=== PATIENT | male | born 1945 | race Caucasian/White ===

== ENCOUNTER 2016-08-06 17:37 | Inpatient (IN) | payer MEDICARE, OTHER ==
--- NOTE | 2016-08-06 18:38 | ED ---
Extremity Problem HPI - General Chief complaint: Extremity Problem,Nontraumatic Stated complaint: Legs swollen/pain Time Seen by Provider: 08/06/16 18:28 Source: patient, RN notes reviewed Mode of arrival: wheelchair Limitations: no limitations - History of Present Illness Initial comments: 31-year-old male presents emergency Department chief complaint of bilateral leg swelling, 30 pound weight gain. Patient states this has been going on for last 2 weeks. Patient states she does have CHF and which she's had multiple exacerbations. Patient states that he saw his family doctor on Friday who told him that he had to go to the emergency department though he refused and signed off. Patient states that he does not have any retaken of his . Patient states that he does have some he now and he is here for evaluation. Patient states that he typically lives in a recliner. Patient denies any increased shortness of breath. Patient denies any chest pain, fever, chills. Patient states he takes Lasix 80 mg twice daily. Patient states that his pressure has been lower than usual also. - Related Data Home Medications Medication Instructions Recorded Confirmed HYDROcodone/APAP 7.5-325MG [[place] 1 tab PO Q6HR PRN 11/07/15 08/06/16 7.5-325] Furosemide [Lasix] 80 mg PO BID 04/05/16 08/06/16 Aspirin [Adult Low Dose Aspirin EC] 81 mg PO DAILY 04/10/16 08/06/16 Metoprolol Tartrate [Lopressor] 12.5 mg PO DAILY 04/10/16 08/06/16 Atorvastatin [Lipitor] 80 mg PO DAILY 08/06/16 08/06/16 Omeprazole [PriLOSEC] 20 mg PO DAILY 08/06/16 08/06/16 metFORMIN HCL [Glucophage] 500 mg PO BID 08/06/16 08/06/16 Allergies Allergy/AdvReac Type Severity Reaction Status Date / Time Penicillins Allergy Rash/Hives Verified 08/06/16 18:51 Review of Systems ROS Statement: Those systems with pertinent positive or pertinent negative responses have been documented in the HPI. ROS Other: All systems not noted in ROS Statement are negative. Past Medical History Past Medical History: Coronary Artery Disease (CAD), Diabetes Mellitus, Hyperlipidemia, Hypertension, Myocardial Infarction ([place]), Osteoarthritis (OA), Pneumonia, Prostate Disorder, Vascular Disorder Additional Past Medical History / Comment(s): . Last Myocardial Infarction Date:: 2010 History of Any Multi-Drug Resistant Organisms: MRSA, VRE Date of last positivie culture/infection: 12/08/15 MDRO Source:: RIGHT FOOT MRSA AND VRE Past Surgical History: Appendectomy, Back Surgery, Cholecystectomy, Heart Catheterization With Stent, Hernia Repair, Pacemaker, Tonsillectomy Additional Past Surgical History / Comment(s): cervical fusion, left carpal tunnel release, cataract left eye, HEART STENT X2, 10-16-15 PTBA /RT LEG STENT. Past Anesthesia/Blood Transfusion Reactions: Postoperative Nausea & Vomiting ( PONV) Additional Past Anesthesia/Blood Transfusion Reaction / Comment(s): . 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 Smoking Status: Current every day smoker Past Alcohol Use History: Rare Additional Past Alcohol Use History / Comment(s): Patient has been a smoker of one and half packs per day since 1996. IS TRYING TO QUIT SMOKING, DOWN TO 1/2 PPD. Past Drug Use History: None Reported - Past Family History Mother Additional Family Medical History / Comment(s): PT STATED MOM WAS HEALTH BUT IN OLDER AGE GOT PNE- FROM COMPLICATIONS OF PNE. Father Family Medical History: Osteoarthritis (OA) Additional Family Medical History / Comment(s): ULCERS, HEART PROBLEMS HAD BYPASS,BACK SURGURY General Exam Limitations: no limitations General appearance: alert, in no apparent distress Head exam: Present: atraumatic, normocephalic, normal inspection Neck exam: Present: normal inspection. Absent: tenderness, meningismus, lymphadenopathy Respiratory exam: Present: normal lung sounds bilaterally. Absent: respiratory distress, wheezes, rales, rhonchi, stridor Cardiovascular Exam: Present: regular rate, normal rhythm, normal heart sounds. Absent: systolic murmur, diastolic murmur, rubs, gallop, clicks GI/Abdominal exam: Present: soft, normal bowel sounds. Absent: distended, tenderness, guarding, rebound, rigid Extremities exam: Present: pedal edema (2+ pitting edema pulses +2 bilaterally) Neurological exam: Present: alert, oriented X3, CN II-XII intact Skin exam: Present: warm, dry, intact, normal color. Absent: rash Course Vital Signs 08/06/16 08/06/16 18:02 20:30 Temperature 99.4 F Pulse Rate 73 Respiratory 18 16 Rate Blood Pressure 96/46 O2 Sat by Pulse 97 Oximetry Medical Decision Making - Lab Data Result diagrams: 08/06/16 19:35 08/06/16 19:35 Lab Results 08/06/16 08/06/16 08/06/16 Range/Units 19:35 19:35 19:35 WBC 6.2 (3.8-10.6) k/uL RBC 4.42 (4.30-5.90) m/uL Hgb 13.3 (13.0-17.5) gm/dL Hct 41.7 (39.0-53.0) % MCV 94.3 (80.0-100.0) fL MCH 30.1 (25.0-35.0) pg MCHC 31.9 (31.0-37.0) g/dL RDW 14.6 (11.5-15.5) % Plt Count 151 (150-450) k/uL Neutrophils % 73 % Lymphocytes % 16 % Monocytes % 6 % Eosinophils % 3 % Basophils % 1 % Neutrophils # 4.5 (1.3-7.7) k/uL Lymphocytes # 1.0 (1.0-4.8) k/uL Monocytes # 0.4 (0-1.0) k/uL Eosinophils # 0.2 (0-0.7) k/uL Basophils # 0.0 (0-0.2) k/uL Sodium 136 L (137-145) mmol/L Potassium 5.1 (3.5-5.1) mmol/L Chloride 103 (98-107) mmol/L Carbon Dioxide 22 (22-30) mmol/L Anion Gap 11 mmol/L BUN 20 (9-20) mg/dL Creatinine 1.01 (0.66-1.25) mg/dL Est GFR (MDRD) Af Amer >60 (>60 ml/min/1.73 sqM) Est GFR (MDRD) Non-Af >60 (>60 ml/min/1.73 sqM) Glucose 480 H* (74-99) mg/dL Calcium 9.1 (8.4-10.2) mg/dL Magnesium 1.8 (1.6-2.3) mg/dL Total Bilirubin 1.1 (0.2-1.3) mg/dL AST 79 H (17-59) U/L ALT 82 H (21-72) U/L Alkaline Phosphatase 125 (38-126) U/L Troponin I (0.000-0.034) ng/mL NT-Pro-B Natriuret Pep 979 pg/mL Total Protein 6.5 (6.3-8.2) g/dL Albumin 3.7 (3.5-5.0) g/dL Acetone, Qual (Negative) 08/06/16 08/06/16 Range/Units 19:35 19:35 WBC (3.8-10.6) k/uL RBC (4.30-5.90) m/uL Hgb (13.0-17.5) gm/dL Hct (39.0-53.0) % MCV (80.0-100.0) fL MCH (25.0-35.0) pg MCHC (31.0-37.0) g/dL RDW (11.5-15.5) % Plt Count (150-450) k/uL Neutrophils % % Lymphocytes % % Monocytes % % Eosinophils % % Basophils % % Neutrophils # (1.3-7.7) k/uL Lymphocytes # (1.0-4.8) k/uL Monocytes # (0-1.0) k/uL Eosinophils # (0-0.7) k/uL Basophils # (0-0.2) k/uL Sodium (137-145) mmol/L Potassium (3.5-5.1) mmol/L Chloride (98-107) mmol/L Carbon Dioxide (22-30) mmol/L Anion Gap mmol/L BUN (9-20) mg/dL Creatinine (0.66-1.25) mg/dL Est GFR (MDRD) Af Amer (>60 ml/min/1.73 sqM) Est GFR (MDRD) Non-Af (>60 ml/min/1.73 sqM) Glucose (74-99) mg/dL Calcium (8.4-10.2) mg/dL Magnesium (1.6-2.3) mg/dL Total Bilirubin (0.2-1.3) mg/dL AST (17-59) U/L ALT (21-72) U/L Alkaline Phosphatase (38-126) U/L Troponin I <0.012 (0.000-0.034) ng/mL NT-Pro-B Natriuret Pep pg/mL Total Protein (6.3-8.2) g/dL Albumin (3.5-5.0) g/dL Acetone, Qual Negative (Negative) Disposition Clinical Impression: CHF (congestive heart failure), Weight gain, abnormal, Hyperglycemia Disposition: ADMITTED IP TO THIS HOSP Condition: Stable
--- NOTE | 2016-08-06 19:50 | XR ---
EXAMINATION TYPE: XR chest 2V DATE OF EXAM: 08/06/2016 7:46 PM COMPARISON: 04/10/2016 HISTORY: Short of breath TECHNIQUE: Frontal and lateral views of the chest are obtained. FINDINGS: There is coarsening of interstitial pulmonary markings. There is no pleural effusion. Hear t size is normal. There are no hilar masses. There is a left axillary pacemaker with the lead tip in the right ventricle. IMPRESSION: Coarse lung markings probably due to mild pulmonary congestion. There is no overt heart failure. No change compared to old exam.
[2016-08-06 20:00] LABS: Basophils % (A) 1 %; Eosinophils # (A) 0.2 k/uL (0-0.7); Eosinophils % (A) 3 %; HCT 41.7 % (39.0-53.0); HGB 13.3 gm/dL (13.0-17.5); Luc # (Auto) 0.13; Luc % (Auto) 2; Lymphocytes % (A) 16 %; MCH 30.1 pg (25.0-35.0); MCHC 31.9 g/dL (31.0-37.0); MCV 94.3 fL (80.0-100.0); Monocytes # (A) 0.4 k/uL (0-1.0); Monocytes % (A) 6 %; Neutrophils # (A) 4.5 k/uL (1.3-7.7); Neutrophils % (A) 73 %; RBC 4.42 m/uL (4.30-5.90); RDW 14.6 % (11.5-15.5); WBC 6.2 k/uL (3.8-10.6); WBC (Perox) 6.28
[2016-08-06 20:08] LABS: ALT 82 U/L (21-72); AST 79 U/L (17-59); Alkaline Phosphatase 125 U/L (38-126); Anion Gap 11 mmol/L; Blood Urea Nitrogen 20 mg/dL (9-20); Calcium 9.1 mg/dL (8.4-10.2); Carbon Dioxide 22 mmol/L (22-30); Chloride 103 mmol/L (98-107); Magnesium 1.8 mg/dL (1.6-2.3); Non-African American GFR(MDRD) >60 (>60 ml/min/1.73 sqM); Potassium 5.1 mmol/L (3.5-5.1); Sodium 136 mmol/L (137-145); Total Bilirubin 1.1 mg/dL (0.2-1.3); Total Protein 6.5 g/dL (6.3-8.2)
[2016-08-06 20:14] LABS: Glucose 480 mg/dL (74-99)
[2016-08-06] MEDS ORDERED: INSULIN REGULAR 100 UNIT/ML VIAL IV ONE (20:15)
[2016-08-06] MEDS ORDERED: FUROSEMIDE 10 MG/ML 4 ML VIAL IV STA (21:24)
[2016-08-06] MEDS ORDERED: NALOXONE 0.4 MG/ML 1 ML VIAL IV PRN (21:33)
[2016-08-06 21:45] LABS: Glucose,Whole Blood 362 mg/dL (75-99)
[2016-08-06 23:06] LABS: Hemoglobin A1C 12.1 % (4.2-6.1)
[2016-08-07 00:47] LABS: Glucose,Whole Blood 307 mg/dL (75-99)
[2016-08-07] MEDS: HYDROcodone/APAP 7.5-325MG 1 EACH TAB PO PRN ×2 (02:24→23:37)
[2016-08-07 04:12] LABS: Appearance,Urine Clear (Clear); Bilirubin,Urine Negative (Negative); Glucose,Urine (UA) 4+ (Negative); Ketones,Urine Negative (Negative); Leukocyte Esterase,Urine Negative (Negative); Nitrite,Urine Negative (Negative); Protein,Urine Negative (Negative); Specific Gravity,Urine 1.005 (1.001-1.035); UA Billing (MACRO vs. MICRO) CHEM; Urobilinogen,Urine <2.0 mg/dL (<2.0)
[2016-08-07 07:46] LABS: Glucose,Whole Blood 291 mg/dL (75-99)
[2016-08-07] MEDS: ONDANSETRON 4 MG/2 ML VIAL IVP PRN (08:04)
[2016-08-07] MEDS: INSULIN LISPRO (humaLOG) 300 UNIT/3 ML VIAL SQ SCH ×4 (08:06→21:23)
[2016-08-07] MEDS: PANTOPRAZOLE 40 MG TABLET PO SCH (08:07)
[2016-08-07] MEDS: ASPIRIN 81 MG CHEW PO SCH (08:07)
[2016-08-07] MEDS ORDERED: FUROSEMIDE 10 MG/ML 4 ML VIAL IV SCH ×2 (09:00→18:00)
[2016-08-07] MEDS ORDERED: METOPROLOL TARTRATE 12.5 MG TAB PO SCH (09:00)
[2016-08-07] MEDS: ATORVASTATIN 80 MG TAB PO SCH (10:56)
[2016-08-07 12:01] VITALS: BMI 34.6
[2016-08-07 12:49] LABS: Glucose,Whole Blood 340 mg/dL (75-99)
[2016-08-07] MEDS: SPIRONOLACTONE 25 MG TAB PO SCH (15:30)
[2016-08-07] MEDS: FUROSEMIDE 10 MG/ML 4 ML VIAL IV SCH ×2 (15:30→23:18)
[2016-08-07] MEDS: NICOTINE 14MG/24HR PATCH TRANSDERM SCH ×2 (15:30→15:31)
[2016-08-07 16:53] LABS: Glucose,Whole Blood 395 mg/dL (75-99)
[2016-08-07] MEDS: INSULIN NPH/REG INSULIN 70/30 300 UNIT/3 ML VIAL SQ SCH (17:35)
--- NOTE | 2016-08-07 18:06 | HP ---
DATE OF ADMISSION: 08/06/2016 PRESENTING COMPLAINT: Leg swelling. HISTORY OF PRESENTING COMPLAINT: This is a 71-year-old patient of Dr. Brown whose chronic stable medical conditions include coronary artery disease with stent, diabetes, hyperlipidemia, hypertension, peripheral artery disease. He also has a history of congestive heart failure with an EF from October that is just 20%. Patient presented with abdominal distention, increasing swelling of the legs, found to be in congestive heart failure. Patient also has some orthopnea. REVIEW OF SYSTEMS: CONSTITUTIONAL: Tired. HEENT: None. RESPIRATORY: Short of breath. CARDIOVASCULAR: As above. GASTROINTESTINAL: None. GENITOURINARY: None. MUSCULOSKELETAL: Aches and pains in the joints. DERMATOLOGICAL: None. HEMATOLOGIC: None. LYMPHATICS: None. PSYCHIATRY: None. NEUROLOGICAL: None. PAST MEDICAL HISTORY: 1. CHF; EF 20%. 2. Coronary artery disease with stent. 3. Diabetes. 4. Hypertension. 5. Hyperlipidemia. 6. Peripheral artery disease. 7. Right foot MRSA and VRE. PAST SURGICAL HISTORY: 1. Appendectomy. 2. Back surgery. 3. Cholecystectomy. 4. Cardiac catheterization with stent. 5. Hernia repair. 6. Tonsillectomy. 7. Cervical spine fusion. 8. Left carpal tunnel release. 9. PTBA to right leg with stent. 10. Hernia repair. 11. Cholecystectomy. 12. AICD. SOCIAL HISTORY: . 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 He smoked a pack and a half a day; now down to half a pack a day. Smoked for over 20 years. Alcohol rarely. FAMILY HISTORY: Heart problems. HOME MEDICATIONS: 1. Glucophage 500 mg p.o. b.i.d. 2. Prilosec 20 mg p.o. daily. 3. Lopressor 12.5 p.o. daily. 4. [place] 7.5 one tablet p.o. q.6 p.r.n. 5. Lasix 80 mg p.o. b.i.d. 6. Lipitor 80 mg p.o. daily. 7. Aspirin 81 mg p.o. daily. ALLERGIES: PENICILLIN. On examination, temperature 98.5, pulse 77, respiration 16, blood pressure 110/59, pulse ox 97% on room air. GENERAL APPEARANCE: Overweight; BMI of 34.6. Sitting up, tired-appearing. EYES: Pupils equal. Conjunctivae normal. HEENT: External appearance of nose and normal. Oral cavity normal. NECK: JVD raised. Mass not palpable. RESPIRATORY: Effort increased. LUNGS: Diminished breath sounds. CARDIOVASCULAR: First and second sounds normal. No edema present. ABDOMEN: Distended, soft. Liver and spleen not palpable. LYMPHATIC: No lymph node palpable in neck or axillae. PSYCHIATRY: Alert and oriented x3. Mood and affect normal. NEUROLOGICAL: Pupils equal. Cranial nerves grossly intact. Power and sensation grossly intact. MUSCULOSKELETAL: Evidence of osteoarthritis of multiple joints. INVESTIGATIONS: White count 6.2, hemoglobin 13.3, platelets 151. Potassium 5.1. BUN and creatinine are normal. Glucose is 480. Serum acetone negative. ProBNP 979. Chest x-ray shows venous prominence. EKG shows right bundle brunch block. ASSESSMENT: 1. Acute on chronic congestive heart failure exacerbation from systolic dysfunction; ejection fraction 20%. Patient has known coronary artery disease. 2. Coronary artery disease with prior history of stent. 3. Diabetes mellitus, type 2, uncontrolled, chronically on oral hypoglycemic. 4. Hyperlipidemia. 5. Essential hypertension. 6. Primary osteoarthritis in bilateral joints bilaterally. 7. Obesity with body mass index of 34.7. 8. Peripheral artery disease. 9. Chronic nicotine dependence. Patient is a cigarette smoker. PLAN: Patient was started on IV Lasix. Strict I&O. Will also add Aldactone. Will increase Lopressor to 12.5 twice a day. Patient advised against smoking, given a nicotine patch. Will also use Hector wraps. Strict I&O will be done, electrolytes followed closely. Care was discussed with the patient.
[2016-08-07 20:41] LABS: Glucose,Whole Blood 280 mg/dL (75-99)
[2016-08-07] MEDS: METOPROLOL TARTRATE 12.5 MG TAB PO SCH (21:23)
[2016-08-08] MEDS: ONDANSETRON 4 MG/2 ML VIAL IVP PRN (03:10)
[2016-08-08 07:20] LABS: Glucose,Whole Blood 238 mg/dL (75-99)
[2016-08-08 09:33] LABS: Anion Gap 11 mmol/L; Blood Urea Nitrogen 22 mg/dL (9-20); Calcium 9.4 mg/dL (8.4-10.2); Carbon Dioxide 25 mmol/L (22-30); Chloride 102 mmol/L (98-107); Glucose 246 mg/dL (74-99); Non-African American GFR(MDRD) >60 (>60 ml/min/1.73 sqM); Potassium 4.9 mmol/L (3.5-5.1); Sodium 138 mmol/L (137-145)
[2016-08-08] MEDS: INSULIN NPH/REG INSULIN 70/30 300 UNIT/3 ML VIAL SQ SCH ×2 (09:43→17:27)
[2016-08-08] MEDS: INSULIN LISPRO (humaLOG) 300 UNIT/3 ML VIAL SQ SCH ×4 (09:44→21:13)
[2016-08-08] MEDS: METOPROLOL TARTRATE 12.5 MG TAB PO SCH ×2 (09:44→21:14)
[2016-08-08] MEDS: ASPIRIN 81 MG CHEW PO SCH (09:44)
[2016-08-08] MEDS: SPIRONOLACTONE 25 MG TAB PO SCH (09:44)
[2016-08-08] MEDS: FUROSEMIDE 10 MG/ML 4 ML VIAL IV SCH ×3 (09:44→23:55)
[2016-08-08] MEDS: PANTOPRAZOLE 40 MG TABLET PO SCH (09:44)
[2016-08-08] MEDS: NICOTINE 14MG/24HR PATCH TRANSDERM SCH (09:45)
[2016-08-08] MEDS: ATORVASTATIN 80 MG TAB PO SCH (09:45)
[2016-08-08] MEDS ORDERED: INSULIN NPH/REG INSULIN 70/30 300 UNIT/3 ML VIAL SQ SCH (12:30)
[2016-08-08 12:48] LABS: Glucose,Whole Blood 305 mg/dL (75-99)
[2016-08-08 17:05] LABS: Glucose,Whole Blood 188 mg/dL (75-99)
--- NOTE | 2016-08-08 20:59 | PN ---
DATE OF SERVICE: 08/08/2016 PRESENTING COMPLAINT: CHF. INTERVAL HISTORY: This patient with CHF exacerbation on IV Lasix, making good urine. Edema still present. Short of breath a shade better, tolerating his diet. Review of systems done for constitutional, cardiovascular, GI, pulmonary; relevant findings as above. Current medications reviewed, IV Lasix. On examination, temperature 97, pulse 72, respirations 18, blood pressure 117/69, pulse ox 96% on room air. GENERAL APPEARANCE: Sitting up, not in distress. EYES: Pupils equal. Conjunctivae normal. NECK: JVD raised. RESPIRATORY: Effort normal. LUNGS: Diminished breath sounds. CARDIOVASCULAR: First and second sounds normal, present. Edema present. ABDOMEN: Distended, soft. Liver and spleen not palpable. PSYCHIATRY: Alert and oriented x3. Mood and affect were normal. INVESTIGATIONS: BUN 22, creatinine 0.91. Accu-Cheks are noted: 212, 38, 246, 305. ASSESSMENT: 1. Acute on chronic congestive heart failure exacerbation from systolic dysfunction; ejection fraction 20%, from underlying coronary artery disease, slow to respond. 2. Coronary artery disease with prior history of stent. 3. Diabetes mellitus type 2, uncontrolled, chronically on oral hypoglycemic. 4. Hyperlipidemia. 5. Essential hypertension. 6. Primary osteoarthritis of multiple joints, bilateral. 7. Obesity, body mass index of 34.7. 8. Peripheral artery disease. 9. Chronic nicotine dependence. Patient is a cigarette smoker. PLAN: The patient's Novolin 70/30 will be increased to 22 units in the morning and evening and 15 units with supper. Also, the patient's dose of IV Lasix will be increased. The patient is very insistent on going home because he takes care of in his neighbor has been taking care and he has to get out tomorrow. Hector wrap, fluid restriction will be done. Follow.
[2016-08-08 21:31] LABS: Glucose,Whole Blood 114 mg/dL (75-99)
[2016-08-09 00:13] VITALS: RESP 16
[2016-08-09] MEDS: FUROSEMIDE 10 MG/ML 4 ML VIAL IV SCH (07:34)
[2016-08-09] MEDS: PANTOPRAZOLE 40 MG TABLET PO SCH (07:34)
[2016-08-09] MEDS: METOPROLOL TARTRATE 12.5 MG TAB PO SCH (07:34)
[2016-08-09] MEDS: SPIRONOLACTONE 25 MG TAB PO SCH (07:34)
[2016-08-09] MEDS: ASPIRIN 81 MG CHEW PO SCH (07:34)
[2016-08-09] MEDS: ATORVASTATIN 80 MG TAB PO SCH (07:34)
[2016-08-09] MEDS: INSULIN LISPRO (humaLOG) 300 UNIT/3 ML VIAL SQ SCH (07:35)
[2016-08-09] MEDS: INSULIN NPH/REG INSULIN 70/30 300 UNIT/3 ML VIAL SQ SCH (07:35)
[2016-08-09] MEDS: NICOTINE 14MG/24HR PATCH TRANSDERM SCH (07:38)
[2016-08-09] MEDS ORDERED: BISACODYL 5 MG TABLET.DR PO STA (07:46)
[2016-08-09 07:55] LABS: Glucose,Whole Blood 170 mg/dL (75-99)
[2016-08-09 08:06] VITALS: BP 114/59; PULSE 69; TEMP 97.9
[2016-08-09 09:45] LABS: Anion Gap 11 mmol/L; Blood Urea Nitrogen 24 mg/dL (9-20); Calcium 8.9 mg/dL (8.4-10.2); Carbon Dioxide 26 mmol/L (22-30); Chloride 102 mmol/L (98-107); Glucose 175 mg/dL (74-99); Non-African American GFR(MDRD) >60 (>60 ml/min/1.73 sqM); Potassium 4.3 mmol/L (3.5-5.1); Sodium 139 mmol/L (137-145)
[2016-08-09] MEDS ORDERED: INSULIN NPH/REG INSULIN 70/30 300 UNIT/3 ML VIAL SQ SCH (12:30)
--- NOTE | 2016-08-10 13:35 | DS ---
DATE OF ADMISSION: 08/06/2016 DATE OF DISCHARGE: 08/09/2016 FINAL DIAGNOSES: 1. Acute on chronic congestive heart failure exacerbation from systolic dysfunction; ejection fraction 20%, from underlying coronary artery disease, slow to respond. 2. Coronary artery disease with prior history of stent. 3. Diabetes mellitus type 2, uncontrolled, chronically on the oral hypoglycemic. 4. Hyperlipidemia. 5. Essential hypertension. 6. Primary osteoarthritis of multiple joints, bilateral. 7. Obesity, body mass index 34.7. 8. Peripheral arterial disease. 9. Chronic nicotine dependence. Patient is a cigarette smoker. HOSPITAL COURSE: This is a patient who looks like somewhat noncompliant, not taking his insulin, presents with CHF exacerbation, really did not want to stay in the hospital as the neighbors were taking care of his . I counseled the patient, gave some diuretics. The patient also was counseled extensively about discontinuing his smoking. I did change the patient to Novolin 70/30. ON EXAMINATION: LUNGS: Decreased breath sounds. CARDIOVASCULAR: First and second seconds normal. DISCHARGE MEDICATIONS: 1. [place] 7.5 one tablet q.6 p.r.n. 2. Lasix 80 mg p.o. b.i.d. 3. Aspirin 81 mg p.o. daily. 4. Lipitor 80 mg p.o. daily. 5. Prilosec 20 mg p.o. daily. 6. Glucophage 1000 mg p.o. b.i.d. 7. NovoLog cancel. Humulin 70/30, 14 units with lunch, 22 units with breakfast and supper. 8. Lopressor 12.5 p.o. b.i.d. 9. Nicotine patch as directed. 10. Aldactone 50 mg a day. Patient to keep a log. BMP in 7 days. Follow up with Dr. Brown on 08/12/16.
== END 2016-08-09 10:06 | disposition home or self-care (01) | DRG 293 ==
LOC: EC 17:37 → 4MS4W 21:33
PROVIDERS: ADMIT Hospitalist; ATTEND Hospitalist
DX: I11.0 Hypertensive heart disease with heart failure (principal); E11.51 Type 2 diabetes mellitus with diabetic peripheral angiopathy without gangrene; E11.65 Type 2 diabetes mellitus with hyperglycemia; I50.23 Acute on chronic systolic (congestive) heart failure; I45.10 Unspecified right bundle-branch block; I25.10 Atherosclerotic heart disease of native coronary artery without angina pectoris; T38.3X6A Underdosing of insulin and oral hypoglycemic [antidiabetic] drugs, initial encounter; N42.9 Disorder of prostate, unspecified; I25.2 Old myocardial infarction; E78.5 Hyperlipidemia, unspecified; M19.91 Primary osteoarthritis, unspecified site; F17.210 Nicotine dependence, cigarettes, uncomplicated; Z98.1 Arthrodesis status; Z79.82 Long term (current) use of aspirin; Z95.5 Presence of coronary angioplasty implant and graft; Z88.0 Allergy status to penicillin; Z86.19 Personal history of other infectious and parasitic diseases; Z86.14 Personal history of Methicillin resistant Staphylococcus aureus infection; Z87.01 Personal history of pneumonia (recurrent); Z63.6 Dependent relative needing care at home; Z71.6 Tobacco abuse counseling; Z90.49 Acquired absence of other specified parts of digestive tract; Z79.84 Long term (current) use of oral hypoglycemic drugs; Z79.891 Long term (current) use of opiate analgesic; Z79.899 Other long term (current) drug therapy; Z16.24 Resistance to multiple antibiotics; Z98.42 Cataract extraction status, left eye; Z82.49 Family history of ischemic heart disease and other diseases of the circulatory system; Z95.810 Presence of automatic (implantable) cardiac defibrillator; Z95.820 Peripheral vascular angioplasty status with implants and grafts
CPT/HCPCS: 36415; 71020; 80048; 80053; 81003; 82009; 83036; 83735; 83880; 84484; 85025; 93005; 96374; 96375; 99284

== ENCOUNTER 2017-02-14 10:15 | Emergency (ER) | payer MEDICARE, OTHER ==
[2017-02-14 10:24] VITALS: PULSE 70; TEMP 98.1
[2017-02-14 10:34] LABS: Glucose,Whole Blood 394 mg/dL (75-99)
[2017-02-14] MEDS ORDERED: metFORMIN 500 MG TAB PO STA (11:12)
[2017-02-14 11:35] LABS: Appearance,Urine Clear (Clear); Bilirubin,Urine Negative (Negative); Glucose,Urine (UA) 4+ (Negative); Ketones,Urine Negative (Negative); Leukocyte Esterase,Urine Negative (Negative); Nitrite,Urine Negative (Negative); Protein,Urine Trace (Negative); Specific Gravity,Urine 1.022 (1.001-1.035); UA Billing (MACRO vs. MICRO) CHEM; Urobilinogen,Urine <2.0 mg/dL (<2.0)
--- NOTE | 2017-02-14 11:45 | ED ---
Recheck HPI - General Chief Complaint: Recheck/Abnormal Lab/Rx Stated Complaint: Diabetic-Low Sugar Source: patient Mode of arrival: wheelchair Limitations: no limitations - History of Present Illness Initial Comments: 72-year-old male with past medical history of diabetes presenting for evaluation of hyperglycemia. 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 He was sent from the office to the ED for further evaluation. Upon arrival he stated that he did not want to be here long as his was home alone and very sick. He stated that he would just like to get some insulin and then be discharged. Further questioning revealed that he does not take insulin at home but takes metformin and had neglected to take it this morning. He stated that he was asymptomatic and had no concerns at this point. He denied lightheadedness, dizziness, fevers, chills, nausea, vomiting, abdominal pain, chest pain, shortness of breath, polyuria, polydipsia. - Related Data Home Medications Medication Instructions Recorded Confirmed HYDROcodone/APAP 7.5-325MG [[place] 1 tab PO Q6HR PRN 11/07/15 02/14/17 7.5-325] Furosemide [Lasix] 80 mg PO BID 04/05/16 02/14/17 Aspirin [Adult Low Dose Aspirin EC] 81 mg PO DAILY 04/10/16 02/14/17 Atorvastatin [Lipitor] 80 mg PO DAILY 08/06/16 02/14/17 Omeprazole [PriLOSEC] 20 mg PO DAILY 08/06/16 02/14/17 metFORMIN HCL [Glucophage] 1,000 mg PO BID 08/06/16 02/14/17 Metolazone [Zaroxolyn] 5 mg PO DAILY 02/14/17 02/14/17 Previous Rx's Medication Instructions Recorded Metoprolol Tartrate [Lopressor] 12.5 mg PO BID #60 tab 08/08/16 Allergies Allergy/AdvReac Type Severity Reaction Status Date / Time Penicillins Allergy Rash/Hives Verified 02/14/17 11:11 Review of Systems ROS Statement: Those systems with pertinent positive or pertinent negative responses have been documented in the HPI. ROS Other: All systems not noted in ROS Statement are negative. Constitutional: Denies: fever, chills Eyes: Denies: eye pain, vision change ENT: Denies: ear pain, throat pain Respiratory: Denies: cough, dyspnea, wheezes Cardiovascular: Denies: chest pain, palpitations, dyspnea on exertion, edema, syncope Endocrine: Denies: fatigue, polydipsia, polyuria Gastrointestinal: Denies: abdominal pain, nausea, vomiting Genitourinary: Denies: urgency, dysuria Musculoskeletal: Denies: back pain, arthralgia, myalgia Skin: Denies: rash, lesions Neurological: Denies: headache, weakness Psychiatric: Denies: anxiety, depression Hematological/Lymphatic: Denies: easy bleeding, easy bruising Past Medical History Past Medical History: Coronary Artery Disease (CAD), Diabetes Mellitus, Hyperlipidemia, Hypertension, Myocardial Infarction ([place]), Osteoarthritis ([place]), Pneumonia, Prostate Disorder, Vascular Disorder Additional Past Medical History / Comment(s): past edema in legs ,rt.foot wound Last Myocardial Infarction Date:: 2010 History of Any Multi-Drug Resistant Organisms: MRSA, VRE Date of last positivie culture/infection: 12/08/15 MDRO Source:: RIGHT FOOT MRSA AND VRE Past Surgical History: Appendectomy, Back Surgery, Cholecystectomy, Heart Catheterization With Stent, Hernia Repair, Pacemaker, Tonsillectomy Additional Past Surgical History / Comment(s): cervical fusion , left carpal tunnel release, cataract left eye, HEART STENT X2, 10-15- PTBA /RT LEG STENT. hernia replacement and cholecystectomy Past Anesthesia/Blood Transfusion Reactions: Postoperative Nausea & Vomiting ( PONV) Additional Past Anesthesia/Blood Transfusion Reaction / Comment(s): . Date of Last Stent Placement:: 12/2013 Type of Cardiac Device: AICD Device Placement Date:: 2014 Past Psychological History: No Psychological Hx Reported Smoking Status: Current every day smoker - Past Family History Mother Additional Family Medical History / Comment(s): PT STATED MOM WAS HEALTH BUT IN OLDER AGE GOT PNE- FROM COMPLICATIONS OF PNE. Father Family Medical History: Osteoarthritis ([place]) Additional Family Medical History / Comment(s): ULCERS, HEART PROBLEMS HAD BYPASS,BACK SURGURY General Exam Limitations: no limitations General appearance: alert, in no apparent distress Head exam: Present: atraumatic, normocephalic, normal inspection Eye exam: Present: normal appearance, PERRL, EOMI. Absent: scleral icterus, conjunctival injection, periorbital swelling ENT exam: Present: normal exam, mucous membranes moist Neck exam: Present: normal inspection. Absent: tenderness, meningismus, lymphadenopathy Respiratory exam: Present: normal lung sounds bilaterally. Absent: respiratory distress, wheezes, rales, rhonchi, stridor Cardiovascular Exam: Present: regular rate, normal rhythm, normal heart sounds. Absent: systolic murmur, diastolic murmur, rubs, gallop, clicks GI/Abdominal exam: Present: soft, normal bowel sounds. Absent: distended, tenderness, guarding, rebound, rigid Rectal exam: Present: deferred Extremities exam: Present: normal inspection, full ROM, normal capillary refill. Absent: tenderness, pedal edema, joint swelling, calf tenderness Back exam: Present: normal inspection Neurological exam: Present: alert, oriented X3, CN II-XII intact Psychiatric exam: Present: normal affect, normal mood Skin exam: Present: warm, dry, intact, normal color. Absent: rash Course Vital Signs 02/14/17 02/14/17 10:20 11:54 Temperature 98.1 F Pulse Rate 70 70 Respiratory 18 16 Rate Blood Pressure 119/57 105/57 O2 Sat by Pulse 98 Oximetry Medical Decision Making - Medical Decision Making 72-year-old male with past medical history of diabetes resenting for evaluation of hyperglycemia. He states he did not take his 1000 mg of metformin prior to driving 2 hours for his firefighting equipment specialist appointment. During the visit he was found hyperglycemia greater than 400 but upon arrival to this ED he was at 394. He is refusing to have blood drawn at this time but did provide a urine sample which was positive for large amounts of glucose but low ketones. He was informed of result and given his home dose of metformin. Patient is not exhibiting any signs of DKA and appears to be resting comfortably on the bed. He was further offered laboratory work up but refused stating he needed to get home but further affirmed he did not have any symptoms. He was advised to follow up with his PCP but to return if he should develop any symptoms including but not limited to: Lightheadedness, dizziness, nausea, vomiting, fevers, chills, chest pain, shortness of breath or abdominal pain, polyuria, polydipsia. The patient acknowledged an understanding of this information and agreed with this plan of care. Pt was called at 2053 and stated he had arrived home without difficulty and was feeling much better. - Lab Data Lab Results 02/14/17 02/14/17 Range/Units 10:31 11:13 POC Glucose (mg/dL) 394 H (75-99) mg/dL POC Glu Call Center Representative ID Trista Helm Urine Color Light Yellow Urine Appearance Clear (Clear) Urine pH 5.0 (5.0-8.0) Ur Specific [place] 1.022 (1.001-1.035) Urine Protein Trace H (Negative) Urine Glucose (UA) 4+ H (Negative) Urine Ketones Negative (Negative) Urine Blood Negative (Negative) Urine Nitrite Negative (Negative) Urine Bilirubin Negative (Negative) Urine Urobilinogen <2.0 (<2.0) mg/dL Ur Leukocyte Esterase Negative (Negative) Disposition Clinical Impression: Hyperglycemia Disposition: HOME SELF-CARE Condition: Stable Instructions: Hyperosmolar Hyperglycemic State (ED) Additional Instructions: Please follow up with your primary care physician. If you should start to develop any symptoms on your drive home pullover and immediately call EMS. Metformin should not cause you to become hypoglycemic and this is your regular daily dose. Although you refused labs you may call back and return at any time for a full and complete workup. Referrals: Grey Brown DO [Primary Care Provider] - 1-2 days Time of Disposition: 11:45
[2017-02-14 11:57] VITALS: BP 105/57; RESP 16
== END 2017-02-14 11:56 | disposition home or self-care (01) ==
LOC: EC 10:15
DX: E11.65 Type 2 diabetes mellitus with hyperglycemia (principal); I25.10 Atherosclerotic heart disease of native coronary artery without angina pectoris; E78.5 Hyperlipidemia, unspecified; I10 Essential (primary) hypertension; M19.90 Unspecified osteoarthritis, unspecified site; F17.200 Nicotine dependence, unspecified, uncomplicated; Z88.0 Allergy status to penicillin; Z79.82 Long term (current) use of aspirin; Z79.84 Long term (current) use of oral hypoglycemic drugs; Z79.899 Other long term (current) drug therapy
CPT/HCPCS: 99283 ×2; 36415; 81003; 11042; G0463; 99213

== ENCOUNTER 2017-08-28 11:22 | Emergency (ER) | payer MEDICARE, OTHER ==
[2017-08-28] MEDS ORDERED: VANCOMYCIN IV PER PHARMACY 1 EACH MISC MISCELLANE PRN (12:13)
[2017-08-28] MEDS ORDERED: LEVOFLOXACIN 750MG-D5W PMX 750 MG in DEXTROSE/WATER 1 150ML.BAG IVPB STA (12:13)
[2017-08-28] MEDS ORDERED: VANCOMYCIN 2,000 MG in SODIUM CHLORIDE 0.9% 500 ML IVPB STA (12:16)
--- NOTE | 2017-08-28 12:27 | ED ---
General Adult HPI - General Chief complaint: Skin/Abscess/Foreign Body Stated complaint: Finger Swelling Time Seen by Provider: 08/28/17 12:08 Source: patient, RN notes reviewed, old records reviewed Mode of arrival: wheelchair Limitations: no limitations - History of Present Illness Initial comments: 72-year-old male presents for evaluation of pain and swelling in his right hand. Patient is diabetic. He was seen by his primary care physician 2 days ago, started on Bactrim for pain and swelling in his right hand this began in the fourth digit with erythema and swelling, this has spread into his hand and wrist. He has significant pain 10 out of 10 in this hand. Patient denies any injury. Pain is currently on day 5 of Bactrim with significantly worsening symptoms. No history of fever or chills. No cough congestion. No abdominal pain. - Related Data Home Medications Medication Instructions Recorded Confirmed HYDROcodone/APAP 7.5-325MG [[place] 1 tab PO Q6HR PRN 11/07/15 08/28/17 7.5-325] Aspirin [Adult Low Dose Aspirin EC] 81 mg PO DAILY 04/10/16 08/28/17 Atorvastatin [Lipitor] 80 mg PO DAILY 08/06/16 08/28/17 Furosemide [Lasix] 80 mg PO DAILY 08/28/17 08/28/17 Metoprolol Tartrate [Lopressor] 12.5 mg PO BID 08/28/17 08/28/17 Sulfamethox-Tmp 800-160Mg [[place] 1 tab PO Q12HR 08/28/17 08/28/17 DS 800-160 mg] metFORMIN HCL [Glucophage] 1,000 mg PO BID 08/28/17 08/28/17 Previous Rx's Medication Instructions Recorded Lisinopril [Zestril] 2.5 mg PO DAILY #30 tab 07/04/17 Allergies Allergy/AdvReac Type Severity Reaction Status Date / Time Penicillins Allergy Rash/Hives Verified 08/28/17 12:05 Review of Systems ROS Statement: Those systems with pertinent positive or pertinent negative responses have been documented in the HPI. ROS Other: All systems not noted in ROS Statement are negative. Past Medical History Past Medical History: Chest Pain / Angina, Diabetes Mellitus, Hyperlipidemia, Hypertension, Myocardial Infarction ([place]) Additional Past Medical History / Comment(s): past edema in legs ,rt.foot wound , bilat leg and hand neuropathy Last Myocardial Infarction Date:: 2010 History of Any Multi-Drug Resistant Organisms: MRSA, VRE Date of last positivie culture/infection: 12/08/15 MDRO Source:: RIGHT FOOT MRSA AND VRE Past Surgical History: Cholecystectomy, Heart Catheterization With Stent, Hernia Repair Additional Past Surgical History / Comment(s): cervical fusion , left carpal tunnel release, cataract left eye, HEART STENT X2, 10-16-15 PTBA /RT LEG STENT Past Anesthesia/Blood Transfusion Reactions: Postoperative Nausea & Vomiting ( PONV) Additional Past Anesthesia/Blood Transfusion Reaction / Comment(s): . Date of Last Stent Placement:: 12/2013 Type of Cardiac Device: AICD Device Placement Date:: 2014 Past Psychological History: No Psychological Hx Reported Smoking Status: Current every day smoker Past Alcohol Use History: Rare Past Drug Use History: None Reported - Past Family History Mother Additional Family Medical History / Comment(s): PT STATED MOM WAS HEALTH BUT IN OLDER AGE GOT PNE- FROM COMPLICATIONS OF PNE. Father Family Medical History: Osteoarthritis (OA) Additional Family Medical History / Comment(s): ULCERS, HEART PROBLEMS HAD BYPASS,BACK SURGURY General Exam Limitations: no limitations General appearance: alert, in no apparent distress Head exam: Present: atraumatic, normocephalic Eye exam: Present: normal appearance, PERRL, EOMI ENT exam: Present: normal exam Neck exam: Present: normal inspection. Absent: tenderness, meningismus Respiratory exam: Present: normal lung sounds bilaterally. Absent: respiratory distress Cardiovascular Exam: Present: regular rate, normal rhythm GI/Abdominal exam: Present: soft. Absent: distended, tenderness Extremities exam: Present: other (Right hand: Erythema, swelling in the palmar and dorsal surface of the hand, there is significant swelling in the fourth digit with erythema, warmth tracking to the distal forearm. There is some induration and fluctuance in the left proximal digit. Patient has extreme pain with range of motion.) Neurological exam: Present: alert, oriented X3. Absent: motor sensory deficit Psychiatric exam: Present: normal affect, normal mood Skin exam: Present: warm, dry, intact. Absent: cyanosis, diaphoretic Course Vital Signs 08/28/17 08/28/17 11:27 14:31 Temperature 98.0 F Pulse Rate 61 70 Respiratory 18 16 Rate Blood Pressure 105/64 91/53 O2 Sat by Pulse 100 99 Oximetry Medical Decision Making - Medical Decision Making 72-year-old male with right hand tenosynovitis, fourth digit, there is significant infection to the wrist. White blood cells 11.5, CRP significantly elevated at 75. Patient does have mildly elevated blood sugar at 326. Other labs are within normal limits. X-rays negative for soft tissue gas or osteomyelitis. There is soft tissue swelling. Case is discussed with orthopedics, there is currently no hand coverage at this institution. [facility] and with Dr. Barth, both orthopedic groups are unable to evaluate and treat this individual. He will be transferred to [facility] in [place]. Accepting physician Dr. Nimesh Ellison and vancomycin given in the emergency department, blood culture is pending. - Lab Data Result diagrams: 08/28/17 12:10 08/28/17 12:10 Lab Results 08/28/17 08/28/17 Range/Units 12:10 12:10 WBC 11.5 H (3.8-10.6) k/uL RBC 4.43 (4.30-5.90) m/uL Hgb 13.2 (13.0-17.5) gm/dL Hct 41.4 (39.0-53.0) % MCV 93.5 (80.0-100.0) fL MCH 29.8 (25.0-35.0) pg MCHC 31.9 (31.0-37.0) g/dL RDW 13.7 (11.5-15.5) % Plt Count 153 (150-450) k/uL Neutrophils % 85 % Lymphocytes % 8 % Monocytes % 5 % Eosinophils % 1 % Basophils % 0 % Neutrophils # 9.8 H (1.3-7.7) k/uL Lymphocytes # 0.9 L (1.0-4.8) k/uL Monocytes # 0.6 (0-1.0) k/uL Eosinophils # 0.1 (0-0.7) k/uL Basophils # 0.0 (0-0.2) k/uL ESR 28 H (0-15) mm/hr Sodium 134 L (137-145) mmol/L Potassium 5.0 (3.5-5.1) mmol/L Chloride 98 (98-107) mmol/L Carbon Dioxide 25 (22-30) mmol/L Anion Gap 11 mmol/L BUN 32 H (9-20) mg/dL Creatinine 1.30 H (0.66-1.25) mg/dL Est GFR (MDRD) Af Amer >60 (>60 ml/min/1.73 sqM) Est GFR (MDRD) Non-Af 54 (>60 ml/min/1.73 sqM) Glucose 326 H (74-99) mg/dL Calcium 9.1 (8.4-10.2) mg/dL Total Bilirubin 1.6 H (0.2-1.3) mg/dL AST 25 (17-59) U/L ALT 26 (21-72) U/L Alkaline Phosphatase 101 (38-126) U/L C-Reactive Protein 75.2 H (<10.0) mg/L Total Protein 6.5 (6.3-8.2) g/dL Albumin 3.6 (3.5-5.0) g/dL Disposition Clinical Impression: Tenosynovitis of hand Disposition: OTHER INSTITUTION NOT DEFINED Condition: Stable Referrals: Grey Brown DO [Primary Care Provider] - 1-2 days - Out of Hospital Transfer - Req. Specs Out of Hospital Transfer - Requested Specifics: Other Emergency Center ( Transfer to [facility] accepting physician Dr. Beavers)
[2017-08-28 12:34] LABS: Basophils % (A) 0 %; Eosinophils # (A) 0.1 k/uL (0-0.7); Eosinophils % (A) 1 %; HCT 41.4 % (39.0-53.0); HGB 13.2 gm/dL (13.0-17.5); Lymphocytes # (A) 0.9 k/uL (1.0-4.8); Lymphocytes % (A) 8 %; MCH 29.8 pg (25.0-35.0); MCHC 31.9 g/dL (31.0-37.0); MCV 93.5 fL (80.0-100.0); Monocytes # (A) 0.6 k/uL (0-1.0); Monocytes % (A) 5 %; Neutrophils # (A) 9.8 k/uL (1.3-7.7); Neutrophils % (A) 85 %; Platelet Count 153 k/uL (150-450); RBC 4.43 m/uL (4.30-5.90); RDW 13.7 % (11.5-15.5); WBC 11.5 k/uL (3.8-10.6)
[2017-08-28 12:56] LABS: ALT 26 U/L (21-72); AST 25 U/L (17-59); Albumin 3.6 g/dL (3.5-5.0); Alkaline Phosphatase 101 U/L (38-126); Anion Gap 11 mmol/L; Blood Urea Nitrogen 32 mg/dL (9-20); C Reactive Protein 75.2 mg/L (<10.0); Calcium 9.1 mg/dL (8.4-10.2); Carbon Dioxide 25 mmol/L (22-30); Chloride 98 mmol/L (98-107); Glucose 326 mg/dL (74-99); Sodium 134 mmol/L (137-145); Total Bilirubin 1.6 mg/dL (0.2-1.3); Total Protein 6.5 g/dL (6.3-8.2)
[2017-08-28] MEDS ORDERED: MORPHINE SULFATE 4 MG/ML SYRINGE IVP STA (12:57)
--- NOTE | 2017-08-28 13:03 | XR ---
EXAMINATION TYPE: XR hand complete RT DATE OF EXAM: 08/28/2017 CLINICAL HISTORY: Unexplained fourth digit swelling with redness and tenderness. Pain per order. TECHNIQUE: Frontal, lateral and oblique images of the right hand are obtained. COMPARISON: None. FINDINGS: Moderate soft tissue swelling surrounding fourth digit most prominent near distal proximal phalanx is identified. No suspicious metallic or obvious radiodense foreign body is seen. There is n o acute fracture/dislocation evident in the right hand. The joint spaces in the right hand appear wit hin normal limits. Incomplete extension of phalanges is noted. No suspicious cortical destruction or periosteal reaction is identified. IMPRESSION: There is no acute fracture or dislocation in the right hand. Moderate soft tissue swelli ng fourth digit is confirmed.
[2017-08-28 13:49] LABS: Erythrocyte Sedimentation Rate 28 mm/hr (0-15)
[2017-08-28 14:33] VITALS: RESP 16
[2017-08-28] MEDS ORDERED: ONDANSETRON 4 MG/2 ML VIAL IVP STA (15:06)
[2017-08-28 15:48] VITALS: BP 103/70; PULSE 71; TEMP 98.9
[2017-08-29] MEDS ORDERED: VANCOMYCIN 2,000 MG in SODIUM CHLORIDE 0.9% 500 ML IVPB SCH ×2
== END 2017-08-28 15:53 | disposition other institution (70) ==
LOC: EC 11:22
DX: M65.841 Other synovitis and tenosynovitis, right hand (principal); D72.829 Elevated white blood cell count, unspecified; R79.82 Elevated C-reactive protein (CRP); E78.5 Hyperlipidemia, unspecified; I10 Essential (primary) hypertension; I25.2 Old myocardial infarction; E11.40 Type 2 diabetes mellitus with diabetic neuropathy, unspecified; F17.200 Nicotine dependence, unspecified, uncomplicated; Z86.14 Personal history of Methicillin resistant Staphylococcus aureus infection; Z79.82 Long term (current) use of aspirin; Z79.84 Long term (current) use of oral hypoglycemic drugs; Z79.899 Other long term (current) drug therapy; Z88.0 Allergy status to penicillin
CPT/HCPCS: 36415; 80053; 85652; 83605; 85025; 86140; 87040; 73130; 99285; 96365; 96367; 96375 ×2; J3370; J2270; J2405; J1956

== ENCOUNTER 2017-09-11 11:06 | Inpatient (IN) | payer MEDICARE, OTHER ==
[2017-09-11] MEDS ORDERED: FUROSEMIDE 10 MG/ML 4 ML VIAL IV STA (11:37)
--- NOTE | 2017-09-11 11:40 | ED ---
General Adult HPI - General Chief complaint: Weakness Stated complaint: CHF, WEAKNESS Time Seen by Provider: 09/11/17 11:22 Source: patient, RN notes reviewed Mode of arrival: wheelchair Limitations: no limitations - History of Present Illness Initial comments: Patient is a pleasant 72-year-old male presenting to the emergency department for swelling and weight gain. Patient has gained approximately 40 pounds over the past week. Patient was at [facility] week ago for right hand infection. This is improving and patient is on IV antibiotics. Patient has had increased swelling of his legs even some of his abdomen and arms. Patient does have this little exertion as well as orthopnea. No dyspnea at rest. Patient is only able to walk around 10 feet or so. Patient is easily fatigable. - Related Data Home Medications Medication Instructions Recorded Confirmed HYDROcodone/APAP 7.5-325MG [[place] 1 tab PO Q6HR PRN 11/07/15 09/11/17 7.5-325] Aspirin [Adult Low Dose Aspirin EC] 81 mg PO DAILY 04/10/16 09/11/17 Atorvastatin [Lipitor] 80 mg PO DAILY 08/06/16 09/11/17 Furosemide [Lasix] 80 mg PO DAILY 08/28/17 09/11/17 Metoprolol Tartrate [Lopressor] 12.5 mg PO BID 08/28/17 09/11/17 metFORMIN HCL [Glucophage] 1,000 mg PO BID 08/28/17 09/11/17 Vancomycin 1,750 mg IVPB Q24HR 09/11/17 09/11/17 Previous Rx's Medication Instructions Recorded Lisinopril [Zestril] 2.5 mg PO DAILY #30 tab 07/04/17 Allergies Allergy/AdvReac Type Severity Reaction Status Date / Time Penicillins Allergy Rash/Hives Verified 09/11/17 12:16 Review of Systems ROS Statement: Those systems with pertinent positive or pertinent negative responses have been documented in the HPI. ROS Other: All systems not noted in ROS Statement are negative. Constitutional: Denies: fever Eyes: Denies: eye pain ENT: Denies: ear pain Respiratory: Reports: dyspnea. Denies: cough Cardiovascular: Denies: chest pain Endocrine: Reports: fatigue Gastrointestinal: Denies: abdominal pain Genitourinary: Denies: dysuria Musculoskeletal: Denies: back pain Skin: Denies: pruritus Neurological: Denies: headache Past Medical History Past Medical History: Chest Pain / Angina, Diabetes Mellitus, Hyperlipidemia, Hypertension, Myocardial Infarction ([place]) Additional Past Medical History / Comment(s): past edema in legs ,rt.foot wound , bilat leg and hand neuropathy Last Myocardial Infarction Date:: 2010 History of Any Multi-Drug Resistant Organisms: MRSA, VRE Date of last positivie culture/infection: 12/08/15 MDRO Source:: RIGHT FOOT MRSA AND VRE Past Surgical History: Cholecystectomy, Heart Catheterization With Stent, Hernia Repair Additional Past Surgical History / Comment(s): cervical fusion , left carpal tunnel release, cataract left eye, HEART STENT X2, 10-16-15 PTBA /RT LEG STENT, rt hand surgery Past Anesthesia/Blood Transfusion Reactions: Postoperative Nausea & Vomiting ( PONV) Additional Past Anesthesia/Blood Transfusion Reaction / Comment(s): . Date of Last Stent Placement:: 12/2013 Type of Cardiac Device: AICD Device Placement Date:: 2014 Past Psychological History: No Psychological Hx Reported Smoking Status: Current every day smoker Past Alcohol Use History: Rare Past Drug Use History: None Reported - Past Family History Mother Additional Family Medical History / Comment(s): PT STATED MOM WAS HEALTH BUT IN OLDER AGE GOT PNE- FROM COMPLICATIONS OF PNE. Father Family Medical History: Osteoarthritis (OA) Additional Family Medical History / Comment(s): ULCERS, HEART PROBLEMS HAD BYPASS,BACK SURGURY General Exam Limitations: no limitations General appearance: alert, in no apparent distress Head exam: Present: atraumatic Eye exam: Present: normal appearance ENT exam: Present: normal oropharynx Neck exam: Present: normal inspection Respiratory exam: Present: decreased breath sounds (Bilateral bases) Cardiovascular Exam: Present: regular rate, normal rhythm Expanded Peripheral pulses: 2+: Posterior Tibialis (R), Posterior Tibialis (L) GI/Abdominal exam: Present: soft. Absent: tenderness Extremities exam: Present: pedal edema. Absent: calf tenderness Back exam: Present: normal inspection. Absent: tenderness Neurological exam: Present: alert. Absent: motor sensory deficit Psychiatric exam: Present: normal affect, normal mood Skin exam: Present: other (Right hand and bilateral legs with fresh bandages.) Course Vital Signs 09/11/17 09/11/17 09/11/17 11:12 12:20 13:55 Temperature 98.6 F Pulse Rate 62 60 63 Respiratory 20 18 18 Rate Blood Pressure 108/58 104/52 110/56 O2 Sat by Pulse 99 99 99 Oximetry EKG Findings - EKG Comments: EKG Findings:: Normal sinus rhythm 62. MD 200. QRS 104. QT 420. QTc 426. Normal axis. Incomplete right bundle-branch block. Septal Q waves. Poor R- wave progression. No acute ST change. Lateral T wave inversion. Medical Decision Making - Medical Decision Making Patient reevaluated and updated. Dr. portillo has been paged for admission for Dr. Brown. - Lab Data Result diagrams: 09/11/17 12:14 09/11/17 12:14 Lab Results 09/11/17 09/11/17 09/11/17 Range/Units 12:14 12:14 12:14 WBC 7.4 (3.8-10.6) k/uL RBC 3.95 L (4.30-5.90) m/uL Hgb 11.3 L (13.0-17.5) gm/dL Hct 36.8 L (39.0-53.0) % MCV 93.4 (80.0-100.0) fL MCH 28.6 (25.0-35.0) pg MCHC 30.6 L (31.0-37.0) g/dL RDW 14.4 (11.5-15.5) % Plt Count 161 (150-450) k/uL Neutrophils % 75 % Lymphocytes % 14 % Monocytes % 5 % Eosinophils % 4 % Basophils % 1 % Neutrophils # 5.6 (1.3-7.7) k/uL Lymphocytes # 1.1 (1.0-4.8) k/uL Monocytes # 0.4 (0-1.0) k/uL Eosinophils # 0.3 (0-0.7) k/uL Basophils # 0.0 (0-0.2) k/uL PT (9.0-12.0) sec INR (<1.2) APTT (22.0-30.0) sec Sodium 140 (137-145) mmol/L Potassium 3.8 (3.5-5.1) mmol/L Chloride 103 (98-107) mmol/L Carbon Dioxide 27 (22-30) mmol/L Anion Gap 10 mmol/L BUN 16 (9-20) mg/dL Creatinine 0.89 (0.66-1.25) mg/dL Est GFR (MDRD) Af Amer >60 (>60 ml/min/1.73 sqM) Est GFR (MDRD) Non-Af >60 (>60 ml/min/1.73 sqM) Glucose 227 H (74-99) mg/dL Calcium 9.1 (8.4-10.2) mg/dL Total Bilirubin 0.8 (0.2-1.3) mg/dL AST 15 L (17-59) U/L ALT 30 (21-72) U/L Alkaline Phosphatase 97 (38-126) U/L Total Creatine Kinase 66 (55-170) U/L CK-MB (CK-2) 1.9 (0.0-2.4) ng/mL CK-MB (CK-2) Rel Index 2.9 Troponin I 0.015 (0.000-0.034) ng/mL NT-Pro-B Natriuret Pep pg/mL Total Protein 6.1 L (6.3-8.2) g/dL Albumin 3.3 L (3.5-5.0) g/dL 09/11/17 09/11/17 Range/Units 12:14 12:14 WBC (3.8-10.6) k/uL RBC (4.30-5.90) m/uL Hgb (13.0-17.5) gm/dL Hct (39.0-53.0) % MCV (80.0-100.0) fL MCH (25.0-35.0) pg MCHC (31.0-37.0) g/dL RDW (11.5-15.5) % Plt Count (150-450) k/uL Neutrophils % % Lymphocytes % % Monocytes % % Eosinophils % % Basophils % % Neutrophils # (1.3-7.7) k/uL Lymphocytes # (1.0-4.8) k/uL Monocytes # (0-1.0) k/uL Eosinophils # (0-0.7) k/uL Basophils # (0-0.2) k/uL PT 11.3 (9.0-12.0) sec INR 1.2 H (<1.2) APTT 32.5 H (22.0-30.0) sec Sodium (137-145) mmol/L Potassium (3.5-5.1) mmol/L Chloride (98-107) mmol/L Carbon Dioxide (22-30) mmol/L Anion Gap mmol/L BUN (9-20) mg/dL Creatinine (0.66-1.25) mg/dL Est GFR (MDRD) Af Amer (>60 ml/min/1.73 sqM) Est GFR (MDRD) Non-Af (>60 ml/min/1.73 sqM) Glucose (74-99) mg/dL Calcium (8.4-10.2) mg/dL Total Bilirubin (0.2-1.3) mg/dL AST (17-59) U/L ALT (21-72) U/L Alkaline Phosphatase (38-126) U/L Total Creatine Kinase (55-170) U/L CK-MB (CK-2) (0.0-2.4) ng/mL CK-MB (CK-2) Rel Index Troponin I (0.000-0.034) ng/mL NT-Pro-B Natriuret Pep 2840 pg/mL Total Protein (6.3-8.2) g/dL Albumin (3.5-5.0) g/dL - Radiology Data Radiology results: image reviewed (Chest x-ray shows increased interstitial markings.) Disposition Clinical Impression: CHF (congestive heart failure) Disposition: ADMITTED IP TO THIS [facility] Referrals: Grey Brown DO [Primary Care Provider] - 1-2 days
[2017-09-11 12:33] LABS: Basophils % (A) 1 %; Eosinophils # (A) 0.3 k/uL (0-0.7); Eosinophils % (A) 4 %; HCT 36.8 % (39.0-53.0); HGB 11.3 gm/dL (13.0-17.5); Lymphocytes # (A) 1.1 k/uL (1.0-4.8); Lymphocytes % (A) 14 %; MCH 28.6 pg (25.0-35.0); MCHC 30.6 g/dL (31.0-37.0); MCV 93.4 fL (80.0-100.0); Mean Platelet Volume 8.8; Monocytes # (A) 0.4 k/uL (0-1.0); Monocytes % (A) 5 %; Neutrophils # (A) 5.6 k/uL (1.3-7.7); Neutrophils % (A) 75 %; Platelet Count 161 k/uL (150-450); RBC 3.95 m/uL (4.30-5.90); RDW 14.4 % (11.5-15.5); WBC 7.4 k/uL (3.8-10.6)
--- NOTE | 2017-09-11 12:47 | XR ---
EXAMINATION TYPE: XR chest 2V DATE OF EXAM: 09/11/2017 COMPARISON: Prior chest x-ray 07/01/2017 HISTORY: Difficulty breathing, bilateral lower limb swelling TECHNIQUE: Frontal and lateral views of the chest are obtained. FINDINGS: Patient is rotated, heart size is likely stable. Central vascularity and interstitium are increased. No evident pneumothorax, blunting of the posterior costophrenic angles suggests possible p leural effusion. Left-sided PICC line shows the distal tip at the cavoatrial junction level. Defibril lator is stable, leads in the right ventricle. Postop change noted in the lower cervical spine. IMPRESSION: Correlate for pulmonary venous hypertension and interstitial edema. There may be basilar atelectasis versus edema or possibly small effusion. Follow-up is recommended.
[2017-09-11 12:50] LABS: ALT 30 U/L (21-72); AST 15 U/L (17-59); Albumin 3.3 g/dL (3.5-5.0); Alkaline Phosphatase 97 U/L (38-126); Anion Gap 10 mmol/L; Blood Urea Nitrogen 16 mg/dL (9-20); Calcium 9.1 mg/dL (8.4-10.2); Carbon Dioxide 27 mmol/L (22-30); Chloride 103 mmol/L (98-107); Glucose 227 mg/dL (74-99); Potassium 3.8 mmol/L (3.5-5.1); Sodium 140 mmol/L (137-145); Total Bilirubin 0.8 mg/dL (0.2-1.3); Total Protein 6.1 g/dL (6.3-8.2)
[2017-09-11 13:01] LABS: INR 1.2 (<1.2); Partial Thromboplastin Time 32.5 sec (22.0-30.0); Prothrombin Time 11.3 sec (9.0-12.0)
[2017-09-11 13:13] LABS: Creatine Kinase MB 1.9 ng/mL (0.0-2.4); Troponin I 0.015 ng/mL (0.000-0.034)
[2017-09-11] MEDS ORDERED: ASPIRIN 325 MG TAB PO STA (14:35)
[2017-09-11] MEDS ORDERED: RX INFO: IV CONTRAST WAS GIVEN 1 EACH MISC MISCELLANE PRN (14:42)
[2017-09-11] MEDS ORDERED: FUROSEMIDE 10 MG/ML 4 ML VIAL IV SCH (16:00)
[2017-09-11 16:58] LABS: Glucose,Whole Blood 230 mg/dL (75-99)
[2017-09-11] MEDS ORDERED: VANCOMYCIN IV PER PHARMACY 1 EACH MISC MISCELLANE PRN (17:24)
[2017-09-11] MEDS ORDERED: VANCOMYCIN 1,000 MG VIAL IVPB SCH (17:30)
--- NOTE | 2017-09-11 17:34 | P.HPIM ---
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 Patient denied any fever chills cough runny nose. Patient the was recently discharged from [facility] last where he was treated for hand infection was given significant amount of fluids during the surgery and after surgery. Patient takes 80 mg of Lasix at home compliant with his medications and diet recommendations. Chest x-ray didn't show pulmonary edema. Patient does have elevated JVD and elevated BNP patient was started on 40 mg every 8 hourly Lasix which will be increased to 60 mg every 8 hourly. Patient is on IV vancomycin for enterococcus and MRSA of the hand which will be continued patient did not take his IV vancomycin today which will be started here. Review of Systems REVIEW OF SYSTEMS: CONSTITUTIONAL: No fever, no malaise, no fatigue. HEENT: No recent visual problems or hearing problems. Denied any sore throat. CARDIOVASCULAR: No chest pain, as mentioned in HPI PULMONARY: No shortness of breath, no cough, no hemoptysis. GASTROINTESTINAL: No diarrhea, no nausea, no vomiting, no abdominal pain. Normoactive bowel sounds. NEUROLOGICAL: No headaches, no weakness, no numbness. HEMATOLOGICAL: Denies any bleeding or petechiae. GENITOURINARY: Denies any burning micturition, frequency, or urgency. MUSCULOSKELETAL/RHEUMATOLOGICAL: Denies any joint pain, swelling, or any muscle pain. ENDOCRINE: Denies any polyuria or polydipsia. The rest of the 14-point review of systems is negative. Past Medical History Past Medical History: Chest Pain / Angina, Heart Failure, Diabetes Mellitus, Hyperlipidemia, Hypertension, Myocardial Infarction ([place]) Additional Past Medical History / Comment(s): past edema in legs ,2016 rt.foot( heel) wound, bilat leg and hand neuropathy(unable to take gabapentin), recently tx at [facility] for hand infection and had sx. Last Myocardial Infarction Date:: 2010 History of Any Multi-Drug Resistant Organisms: MRSA, VRE Date of last positivie culture/infection: 12/08/15 MDRO Source:: RIGHT FOOT MRSA AND VRE Past Surgical History: Cholecystectomy, Heart Catheterization With Stent, Hernia Repair Additional Past Surgical History / Comment(s): cervical fusion , left carpal tunnel release, cataract left eye, HEART STENT X2, 328-16 PTBA /RT LEG STENT, rt hand surgery Past Anesthesia/Blood Transfusion Reactions: Postoperative Nausea & Vomiting ( PONV) Additional Past Anesthesia/Blood Transfusion Reaction / Comment(s): .PT STATED AFTER HAND SX HAD DIFFICULTY URINATING AND PAIN MEDS CONSTIPATE HIM. 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 Smoking Status: Current every day smoker Past Alcohol Use History: Rare Additional Past Alcohol Use History / Comment(s): PT STARTED SMOKING AT AGE 14 WORKED UP TO 1.5 PPD BUT HAS CUT DOWN TO 1/2 PPD IS TRYING TO QUIT SMOKING. Past Drug Use History: None Reported - Past Family History Mother Additional Family Medical History / Comment(s): PT STATED MOM WAS HEALTHY BUT IN OLDER AGE GOT PNE- FROM COMPLICATIONS OF PNE. Father Family Medical History: Osteoarthritis (OA) Additional Family Medical History / Comment(s): ULCERS, HEART PROBLEMS HAD BYPASS,BACK SURGURY Medications and Allergies Home Medications Medication Instructions Recorded Confirmed Type HYDROcodone/APAP 7.5-325MG [[place] 1 tab PO Q6HR PRN 11/07/15 09/11/17 History 7.5-325] Aspirin [Adult Low Dose Aspirin EC] 81 mg PO DAILY 04/10/16 09/11/17 History Atorvastatin [Lipitor] 80 mg PO DAILY 08/06/16 09/11/17 History Lisinopril [Zestril] 2.5 mg PO DAILY #30 tab 07/04/17 09/11/17 Rx Furosemide [Lasix] 80 mg PO DAILY 08/28/17 09/11/17 History Metoprolol Tartrate [Lopressor] 12.5 mg PO BID 08/28/17 09/11/17 History metFORMIN HCL [Glucophage] 1,000 mg PO BID 08/28/17 09/11/17 History Vancomycin 1,750 mg IVPB Q24HR 02/22/18 02/22/18 History Allergies Allergy/AdvReac Type Severity Reaction Status Date / Time Penicillins Allergy Rash/Hives Verified 09/11/17 12:16 gabapentin [From Neurontin] AdvReac Nausea Verified 09/11/17 16:57 Physical Exam Vitals: Vital Signs Temp Pulse Pulse Resp BP BP Pulse Ox 09/11/17 16:55 96.8 F L 67 24 138/67 100 09/11/17 16:50 67 18 09/11/17 16:29 97.8 F 97 09/11/17 16:23 61 18 134/69 09/11/17 15:02 62 20 111/77 97 09/11/17 13:55 63 18 110/56 99 09/11/17 12:20 60 18 104/52 99 09/11/17 11:12 98.6 F 62 20 108/58 99 Intake and Output 09/11/17 09/11/17 09/11/17 06:59 14:59 22:59 Output Total 300 Balance -300 Output: Urine 300 Other: Voiding Method Toilet Urinal # Voids 1 # Bowel Movements 2 Weight 122.47 kg Patient Weight 09/12/17 06:59 Weight 122.47 kg PHYSICAL EXAMINATION: GENERAL: The patient is alert and oriented x3, not in any acute distress. Well developed, well nourished. HEENT: Pupils are round and equally reacting to light. EOMI. No scleral icterus. No conjunctival pallor. Normocephalic, atraumatic. No pharyngeal erythema. No thyromegaly. CARDIOVASCULAR: S1 and S2 present. Does have elevated JVD and probably S3 as well PULMONARY: Chest is clear to auscultation, no wheezing or crackles. ABDOMEN: Soft, nontender, nondistended, normoactive bowel sounds. No palpable organomegaly. MUSCULOSKELETAL: No joint swelling or deformity. Right hand postsurgically packed EXTREMITIES: No cyanosis, clubbing, patient does have extensive bilateral 3-4+ pitting pedal edema extending up to the knee and midthigh area NEUROLOGICAL: Gross neurological examination did not reveal any focal deficits. SKIN: No rashes. Results CBC & Chem 7: 09/11/17 12:14 09/11/17 12:14 Labs: Abnormal Lab Results - Last 24 Hours (Table) 09/11/17 09/11/17 09/11/17 Range/Units 12:14 12:14 12:14 RBC 3.95 L (4.30-5.90) m/uL Hgb 11.3 L (13.0-17.5) gm/dL Hct 36.8 L (39.0-53.0) % MCHC 30.6 L (31.0-37.0) g/dL INR 1.2 H (<1.2) APTT 32.5 H (22.0-30.0) sec Glucose 227 H (74-99) mg/dL POC Glucose (mg/dL) (75-99) mg/dL AST 15 L (17-59) U/L Total Protein 6.1 L (6.3-8.2) g/dL Albumin 3.3 L (3.5-5.0) g/dL 09/11/17 Range/Units 16:56 RBC (4.30-5.90) m/uL Hgb (13.0-17.5) gm/dL Hct (39.0-53.0) % MCHC (31.0-37.0) g/dL INR (<1.2) APTT (22.0-30.0) sec Glucose (74-99) mg/dL POC Glucose (mg/dL) 230 H (75-99) mg/dL AST (17-59) U/L Total Protein (6.3-8.2) g/dL Albumin (3.5-5.0) g/dL Assessment and Plan Plan: -Congestive heart failure chronic systolic dysfunction with acute exacerbation: Patient was started on IV Lasix as mentioned above close kidney function monitoring and electrolyte monitoring. Eyes and nose. Patient is on lisinopril 2.5 mg which will be started. -Coronary artery disease leading to ischemic cardiomyopathy -Right hand infection for which patient is on IV vancomycin for MRSA and enterococcus. Dr. Richards was consulted. -Type 2 diabetes mellitus: Metformin will be held and patient was started on sliding scale insulin -Hypertension -Hyperlipidemia Above-mentioned chronic medical problems patient will be resumed on appropriate home medications
[2017-09-11] MEDS: FUROSEMIDE 10 MG/ML 10 ML VIAL IV SCH (18:06)
[2017-09-11] MEDS ORDERED: VANCOMYCIN 2,250 MG in SODIUM CHLORIDE 0.9% 500 ML IVPB ONE (18:30)
[2017-09-11] MEDS: METOPROLOL TARTRATE 12.5 MG TAB PO SCH (20:35)
[2017-09-11 20:44] LABS: Glucose,Whole Blood 227 mg/dL (75-99)
[2017-09-11] MEDS: INSULIN ASPART 100 UNIT/ML 1 ML 10 ML VIAL SQ SCH (21:52)
[2017-09-12] MEDS: FUROSEMIDE 10 MG/ML 10 ML VIAL IV SCH ×2 (00:45→08:31)
[2017-09-12 04:02] LABS: Hemoglobin A1C 10.3 % (4.0-6.0)
[2017-09-12 06:09] LABS: Glucose,Whole Blood 188 mg/dL (75-99)
[2017-09-12 06:45] LABS: Anion Gap 8 mmol/L; Blood Urea Nitrogen 15 mg/dL (9-20); Calcium 9.1 mg/dL (8.4-10.2); Carbon Dioxide 30 mmol/L (22-30); Chloride 100 mmol/L (98-107); Glucose 185 mg/dL (74-99); Potassium 3.7 mmol/L (3.5-5.1); Sodium 138 mmol/L (137-145)
[2017-09-12] MEDS: INSULIN ASPART 100 UNIT/ML 1 ML 10 ML VIAL SQ SCH ×4 (06:47→21:29)
[2017-09-12] MEDS ORDERED: FUROSEMIDE 10 MG/ML 4 ML VIAL IV STA (08:27)
[2017-09-12] MEDS: VANCOMYCIN 2,000 MG in SODIUM CHLORIDE 0.9% 500 ML IVPB SCH ×2 (08:32→23:41)
[2017-09-12] MEDS ORDERED: LISINOPRIL 2.5 MG TAB PO SCH (09:00)
[2017-09-12] MEDS ORDERED: ASPIRIN 325 MG TAB PO SCH (09:00)
[2017-09-12] MEDS: LOSARTAN 50 MG TAB PO SCH (09:28)
[2017-09-12] MEDS: POTASSIUM CHLORIDE ER 20 MEQ TAB.ER PO SCH ×2 (09:28→21:16)
[2017-09-12] MEDS: SPIRONOLACTONE 25 MG TAB PO SCH (09:28)
[2017-09-12] MEDS: METOPROLOL TARTRATE 12.5 MG TAB PO SCH ×2 (09:29→21:16)
[2017-09-12] MEDS: ATORVASTATIN 80 MG TAB PO SCH (09:29)
[2017-09-12] MEDS: ASPIRIN 81 MG PO SCH (09:29)
[2017-09-12] MEDS: FUROSEMIDE 250 MG in SODIUM CHLORIDE 0.9% 225 ML IVP SCH (10:02)
--- NOTE | 2017-09-12 10:52 | P.CONS ---
History of Present Illness - Reason for Consult Consult date: 09/12/17 Hand infection - History of Present Illness This is a 72-year-old male patient who has [facility] under the care of Dr. Baker in the past for a right heel wound that is subsequently healed. Patient gives history that earlier this month he had pain and swelling to his right hand. He went to his primary care physician and was given a prescription for Bactrim. He went back for recheck and he was sent into [facility] emergency center for evaluation where he was subsequently transferred to [facility] for treatment of tenosynovitis. Patient states he underwent 2 surgeries and he was discharged on September 04. He initially stayed at his son's home and [place] and return home to [place] on Friday where he lives with his . They've residential care in place. Patient was to receive vancomycin as an outpatient but he missed appointmentsbecause he could not walk and because he could not get a ride. The physician that is managing his care is out of [place] and he is receiving vancomycin daily at Dr. Richards/[facility] office for MRSA infection in the right hand. Patient states local wound care is to soak the hand in soapy water and then apply Vaseline gauze daily. He states his hand is sore but does not seem to be any worse. The swelling to his hand is significantly less than when he initially sought treatment. Patient presented to [facility] emergency center on this visit due to swelling and weight gain of 40 pounds over the past 1 week along with shortness of breath , orthopnea. He denies any fever, chills, cough, nasal congestion or drainage. He was placed on IV Lasix and admitted to the selective care unit where he is seen by cardiology and started on a Lasix drip. 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 His children live in [facility] and are not able to assist. He states that he lost strength and muscle while he was in the hospital recently. Lower extremity edema is also making it more difficult for him to ambulate. Review of Systems All systems: negative Constitutional: Reports fatigue, Reports weakness, Reports weight gain, Denies anorexia, Denies chills, Denies fever, Denies poor appetite, Denies sweats, Denies weight loss Eyes: denies blurred vision, denies pain Ears, nose, mouth and throat: Denies dental pain, Denies headache, Denies mouth pain, Denies sore throat Cardiovascular: Reports orthopnea, Reports shortness of breath, Denies chest pain, Denies lightheadedness, Denies syncope Respiratory: Reports dyspnea, Denies cough, Denies cough with sputum, Denies excessive sputum, Denies hemoptysis, Denies home oxygen, Denies wheezing Gastrointestinal: Denies abdominal pain, Denies diarrhea, Denies nausea, Denies vomiting Genitourinary: Denies dysuria Musculoskeletal: Denies myalgias Integumentary: Reports dryness, Reports wounds, Denies foot/leg ulcers, Denies pruritus, Denies rash Neurological: Reports gait dysfunction, Reports weakness, Denies numbness Psychiatric: Denies anxiety, Denies depression Endocrine: Denies fatigue, Denies weight change Past Medical History Past Medical History: Chest Pain / Angina, Heart Failure, Diabetes Mellitus, Hyperlipidemia, Hypertension, Myocardial Infarction (TN) Additional Past Medical History / Comment(s): past edema in legs ,2016 rt.foot( heel) wound, bilat leg and hand neuropathy(unable to take gabapentin), recently tx at [facility] for hand infection and had sx. Last Myocardial Infarction Date:: 2010 History of Any Multi-Drug Resistant Organisms: MRSA, VRE Year Discovered:: 12/08/15 MDRO Source:: RIGHT FOOT MRSA AND VRE Past Surgical History: Cholecystectomy, Heart Catheterization With Stent, Hernia Repair Additional Past Surgical History / Comment(s): cervical fusion , left carpal tunnel release, cataract left eye, HEART STENT X2, 10-16-15 PTBA /RT LEG STENT, rt hand surgery Past Anesthesia/Blood Transfusion Reactions: Postoperative Nausea & Vomiting ( PONV) Additional Past Anesthesia/Blood Transfusion Reaction / Comm: .PT STATED AFTER HAND SX HAD DIFFICULTY URINATING AND PAIN MEDS CONSTIPATE HIM. 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 Smoking Status: Current every day smoker Past Alcohol Use History: Rare Additional Past Alcohol Use History / Comment(s): PT STARTED SMOKING AT AGE 14 WORKED UP TO 1.5 PPD BUT HAS CUT DOWN TO 1/2 PPD IS TRYING TO QUIT SMOKING. Past Drug Use History: None Reported - Past Family History Mother Additional Family Medical History / Comment(s): PT STATED MOM WAS HEALTHY BUT IN OLDER AGE GOT PNE- FROM COMPLICATIONS OF PNE. Father Family Medical History: Osteoarthritis (OA) Additional Family Medical History / Comment(s): ULCERS, HEART PROBLEMS HAD BYPASS,BACK SURGURY Medications and Allergies Home Medications Medication Instructions Recorded Confirmed Type HYDROcodone/APAP 7.5-325MG [[place] 1 tab PO Q6HR PRN 11/07/15 09/11/17 History 7.5-325] Aspirin [Adult Low Dose Aspirin EC] 81 mg PO DAILY 04/10/16 09/11/17 History Atorvastatin [Lipitor] 80 mg PO DAILY 08/06/16 09/11/17 History Lisinopril [Zestril] 2.5 mg PO DAILY #30 tab 07/04/17 09/11/17 Rx Furosemide [Lasix] 80 mg PO DAILY 08/28/17 09/11/17 History Metoprolol Tartrate [Lopressor] 12.5 mg PO BID 08/28/17 09/11/17 History metFORMIN HCL [Glucophage] 1,000 mg PO BID 08/28/17 09/11/17 History Vancomycin 1,750 mg IVPB Q24HR 09/11/17 09/11/17 History Allergies Allergy/AdvReac Type Severity Reaction Status Date / Time Penicillins Allergy Rash/Hives Verified 09/11/17 12:16 gabapentin [From Neurontin] AdvReac Nausea Verified 09/11/17 16:57 Physical Exam Vitals: Vital Signs Temp Pulse Pulse Resp BP BP Pulse Ox 09/12/17 08:50 96 09/12/17 08:00 97.8 F 67 18 124/54 98 09/12/17 04:00 97.4 F L 97 20 122/57 96 09/12/17 00:00 97.8 F 63 17 125/56 98 09/11/17 20:00 97.3 F L 66 18 113/59 97 09/11/17 16:55 96.8 F L 67 24 138/67 100 09/11/17 16:50 67 18 09/11/17 16:29 97.8 F 97 09/11/17 16:23 61 18 134/69 09/11/17 15:02 62 20 111/77 97 09/11/17 13:55 63 18 110/56 99 09/11/17 12:20 60 18 104/52 99 09/11/17 11:12 98.6 F 62 20 108/58 99 Intake and Output 09/11/17 09/12/17 09/12/17 22:59 06:59 14:59 Intake Total 480 500 180 Output Total 900 1400 300 Balance -420 -900 -120 Intake: Intake, IV Titration 500 Amount Vancomycin 2,000 mg In 500 Sodium Chloride 0.9% 500 ml @ 167 mls/hr IVPB Q16H [facility] Rx#:[id number] Oral 480 180 Output: Urine 900 1400 300 Other: Voiding Method Toilet Toilet Toilet Urinal Urinal Urinal # Voids 1 1 # Bowel Movements 0 0 Weight 122.47 kg 119.3 kg - Constitutional General appearance: no no acute distress, obese - EENT Eyes: no abnormal pupil, anicteric sclerae, no edentulous, PERRLA, no scleral icterus - Respiratory Respiratory: bilateral: diminished - Cardiovascular Heart sounds: normal: S1, S2 - Gastrointestinal General gastrointestinal: no absent bowel sounds, no decreased bowel sounds, no distended, normal bowel sounds, no organomegaly, no tenderness - Integumentary Wound to the distal fifth metatarsal, palmar side with wound to the proximal phalanx, edema and mild erythema, white tissue along wound edges. On the dorsal surface there is a wound to the distal phalanx without drainage along with peeling skin over most of the finger, dorsal side. No redness into the plantar surface, wrist or arm. Decreased range of motion to the fourth digit. Capillary refill immediate. Integumentary: cellulitis, no cyanotic - Neurologic Neurologic: CNII-XII intact - Musculoskeletal Musculoskeletal: generalized weakness - Psychiatric Psychiatric: A&O x's 3, appropriate affect, intact judgment & insight Results Results: Laboratory Results WBC 7.4 k/uL (3.8-10.6) 09/11/17 12:14 RBC 3.95 m/uL (4.30-5.90) L 09/11/17 12:14 Hgb 11.3 gm/dL (13.0-17.5) L 09/11/17 12:14 Hct 36.8 % (39.0-53.0) L 09/11/17 12:14 MCV 93.4 fL (80.0-100.0) 09/11/17 12:14 MCH 28.6 pg (25.0-35.0) 09/11/17 12:14 MCHC 30.6 g/dL (31.0-37.0) L 09/11/17 12:14 RDW 14.4 % (11.5-15.5) 09/11/17 12:14 Plt Count 161 k/uL (150-450) 09/11/17 12:14 Neutrophils % 75 % 09/11/17 12:14 Lymphocytes % 14 % 09/11/17 12:14 Monocytes % 5 % 09/11/17 12:14 Eosinophils % 4 % 09/11/17 12:14 Basophils % 1 % 09/11/17 12:14 Neutrophils # 5.6 k/uL (1.3-7.7) 09/11/17 12:14 Lymphocytes # 1.1 k/uL (1.0-4.8) 09/11/17 12:14 Monocytes # 0.4 k/uL (0-1.0) 09/11/17 12:14 Eosinophils # 0.3 k/uL (0-0.7) 09/11/17 12:14 Basophils # 0.0 k/uL (0-0.2) 09/11/17 12:14 PT 11.3 sec (9.0-12.0) 09/11/17 12:14 INR 1.2 (<1.2) H 09/11/17 12:14 APTT 32.5 sec (22.0-30.0) H 09/11/17 12:14 Sodium 138 mmol/L (137-145) 09/12/17 05:50 Potassium 3.7 mmol/L (3.5-5.1) 09/12/17 05:50 Chloride 100 mmol/L (98-107) 09/12/17 05:50 Carbon Dioxide 30 mmol/L (22-30) 09/12/17 05:50 Anion Gap 8 mmol/L 09/12/17 05:50 BUN 15 mg/dL (9-20) 09/12/17 05:50 Creatinine 0.80 mg/dL (0.66-1.25) 09/12/17 05:50 Est GFR (MDRD) Af Amer >60 (>60 ml/min/1.73 sqM) 09/12/17 05:50 Est GFR (MDRD) Non-Af >60 (>60 ml/min/1.73 sqM) 09/12/17 05:50 Glucose 185 mg/dL (74-99) H 09/12/17 05:50 POC Glucose (mg/dL) 188 mg/dL (75-99) H 09/12/17 06:05 POC Glu Sales Attendant ID Keiko Larry 09/12/17 06:[address] Glu mg/dL 249 09/11/17 12:16 Hemoglobin A1c 10.3 % (4.0-6.0) H 09/11/17 12:16 Calcium 9.1 mg/dL (8.4-10.2) 09/12/17 05:50 Total Bilirubin 0.8 mg/dL (0.2-1.3) 09/11/17 12:14 AST 15 U/L (17-59) L 09/11/17 12:14 ALT 30 U/L (21-72) 09/11/17 12:14 Alkaline Phosphatase 97 U/L (38-126) 09/11/17 12:14 Total Creatine Kinase 66 U/L (55-170) 09/11/17 12:14 CK-MB (CK-2) 1.9 ng/mL (0.0-2.4) 09/11/17 12:14 CK-MB (CK-2) Rel Index 2.9 09/11/17 12:14 Troponin I 0.015 ng/mL (0.000-0.034) 09/11/17 12:14 NT-Pro-B Natriuret Pep 2840 pg/mL 09/11/17 12:14 Total Protein 6.1 g/dL (6.3-8.2) L 09/11/17 12:14 Albumin 3.3 g/dL (3.5-5.0) L 09/11/17 12:14 Random Vancomycin 6.9 ug/mL 09/11/17 12:14 CBC & Chem 7: 09/11/17 12:14 09/12/17 05:50 Labs: Abnormal Lab Results - Last 24 Hours (Table) 09/11/17 09/11/17 09/11/17 Range/Units 12:14 12:14 12:14 RBC 3.95 L (4.30-5.90) m/uL Hgb 11.3 L (13.0-17.5) gm/dL Hct 36.8 L (39.0-53.0) % MCHC 30.6 L (31.0-37.0) g/dL INR 1.2 H (<1.2) APTT 32.5 H (22.0-30.0) sec Glucose 227 H (74-99) mg/dL POC Glucose (mg/dL) (75-99) mg/dL Hemoglobin A1c (4.0-6.0) % AST 15 L (17-59) U/L Total Protein 6.1 L (6.3-8.2) g/dL Albumin 3.3 L (3.5-5.0) g/dL 09/11/17 09/11/17 09/11/17 Range/Units 12:16 16:56 20:43 RBC (4.30-5.90) m/uL Hgb (13.0-17.5) gm/dL Hct (39.0-53.0) % MCHC (31.0-37.0) g/dL INR (<1.2) APTT (22.0-30.0) sec Glucose (74-99) mg/dL POC Glucose (mg/dL) 230 H 227 H (75-99) mg/dL Hemoglobin A1c 10.3 H (4.0-6.0) % AST (17-59) U/L Total Protein (6.3-8.2) g/dL Albumin (3.5-5.0) g/dL 09/12/17 09/12/17 Range/Units 05:50 06:05 RBC (4.30-5.90) m/uL Hgb (13.0-17.5) gm/dL Hct (39.0-53.0) % MCHC (31.0-37.0) g/dL INR (<1.2) APTT (22.0-30.0) sec Glucose 185 H (74-99) mg/dL POC Glucose (mg/dL) 188 H (75-99) mg/dL Hemoglobin A1c (4.0-6.0) % AST (17-59) U/L Total Protein (6.3-8.2) g/dL Albumin (3.5-5.0) g/dL Assessment and Plan Plan: This is a 72-year-old male patient has been admitted to the hospital for acute on chronic systolic heart failure and is currently on IV Lasix drip. Patient has history of recent treatment at [facility] for tenosynovitis of the right fourth digit status post 2 surgical interventions. Patient is on vancomycin as at [facility] office for MRSA infection of the right hand. We will ask for reports to be obtained from [facility] regarding cultures and ID consult. Incentive spirometry has been added. PT and OT has been added as patient is complaining of of weakness and inability to ambulate. Social work consult regarding possible need for rehab, transportation for IV antibiotics, care for his at home. Patient will be maintained on vancomycin. Further recommendations as patient progresses. Continue supportive care. The above dictated assessment and findings were discussed with Dr. Richards. The impression and plan of care have been directed as dictated. Jadyn Chase nurse practitioner acting as scribe for Dr. Richards.
--- NOTE | 2017-09-12 11:54 | P.PN ---
Subjective 72-year-old woman with a history of can start failure chronic systolic dysfunction ejection fraction of 20% with an AICD came in with CHF exacerbation , feeling much better today patient had good urine output patient was switched to losartan from lisinopril by cardiology and patient was switched to IV Lasix to from IV push Lasix. Patient is feeling tired Constitutional: Denied any fatigue denied any fever. Cardio vascular: denied any chest pain, palpitations Gastrointestinal denied any nausea vomiting Pulmonary: Denied any shortness of breath cough Neurologic denied any new focal deficits Objective - Vital Signs Vital signs: Vital Signs Temp 97.3 F L 09/12/17 11:51 Pulse 63 09/12/17 11:51 Resp 18 09/12/17 11:51 BP 109/55 09/12/17 11:51 Pulse Ox 98 09/12/17 11:51 Intake & Output 09/11/17 09/12/17 09/12/17 18:59 06:59 18:59 Intake Total 480 500 180 Output Total 600 1700 300 Balance -120 -1200 -120 Weight 122.47 kg 119.3 kg Intake: Intake, IV Titration 500 Amount Vancomycin 2,000 mg In 500 Sodium Chloride 0.9% 500 ml @ 167 mls/hr IVPB Q16H [facility] Rx#:[id number] Oral 480 180 Output: Urine 600 1700 300 Other: Voiding Method Toilet Toilet Toilet Urinal Urinal Urinal # Voids 1 1 # Bowel Movements 0 0 - Exam GENERAL: The patient is alert and oriented x3, not in any acute distress. Well developed, well nourished. HEENT: Pupils are round and equally reacting to light. EOMI. No scleral icterus. No conjunctival pallor. Normocephalic, atraumatic. No pharyngeal erythema. No thyromegaly. CARDIOVASCULAR: S1 and S2 present. Does have elevated JVD and probably S3 as well PULMONARY: Chest is clear to auscultation, no wheezing or crackles. ABDOMEN: Soft, nontender, nondistended, normoactive bowel sounds. No palpable organomegaly. MUSCULOSKELETAL: No joint swelling or deformity. Right hand postsurgically packed EXTREMITIES: No cyanosis, clubbing, patient does have extensive bilateral 3-4+ pitting pedal edema extending up to the knee and midthigh area NEUROLOGICAL: Gross neurological examination did not reveal any focal deficits. SKIN: No rashes. - Labs CBC & Chem 7: 09/11/17 12:14 09/12/17 05:50 Labs: Abnormal Lab Results - Last 24 Hours (Table) 09/11/17 09/11/17 09/11/17 Range/Units 12:14 12:14 12:14 RBC 3.95 L (4.30-5.90) m/uL Hgb 11.3 L (13.0-17.5) gm/dL Hct 36.8 L (39.0-53.0) % MCHC 30.6 L (31.0-37.0) g/dL INR 1.2 H (<1.2) APTT 32.5 H (22.0-30.0) sec Glucose 227 H (74-99) mg/dL POC Glucose (mg/dL) (75-99) mg/dL Hemoglobin A1c (4.0-6.0) % AST 15 L (17-59) U/L Total Protein 6.1 L (6.3-8.2) g/dL Albumin 3.3 L (3.5-5.0) g/dL 09/11/17 09/11/17 09/11/17 Range/Units 12:16 16:56 20:43 RBC (4.30-5.90) m/uL Hgb (13.0-17.5) gm/dL Hct (39.0-53.0) % MCHC (31.0-37.0) g/dL INR (<1.2) APTT (22.0-30.0) sec Glucose (74-99) mg/dL POC Glucose (mg/dL) 230 H 227 H (75-99) mg/dL Hemoglobin A1c 10.3 H (4.0-6.0) % AST (17-59) U/L Total Protein (6.3-8.2) g/dL Albumin (3.5-5.0) g/dL 09/12/17 09/12/17 Range/Units 05:50 06:05 RBC (4.30-5.90) m/uL Hgb (13.0-17.5) gm/dL Hct (39.0-53.0) % MCHC (31.0-37.0) g/dL INR (<1.2) APTT (22.0-30.0) sec Glucose 185 H (74-99) mg/dL POC Glucose (mg/dL) 188 H (75-99) mg/dL Hemoglobin A1c (4.0-6.0) % AST (17-59) U/L Total Protein (6.3-8.2) g/dL Albumin (3.5-5.0) g/dL Assessment and Plan Plan: -Congestive heart failure chronic systolic dysfunction with acute exacerbation: Patient was started on IV Lasix drip as mentioned above close kidney function monitoring and electrolyte monitoring. Eyes and nose. Patient is on losartan. -Coronary artery disease leading to ischemic cardiomyopathy -Right hand infection for which patient is on IV vancomycin for MRSA and enterococcus. Dr. Richards was consulted. -Type 2 diabetes mellitus: Metformin will be held and patient was started on sliding scale insulin -Hypertension -Hyperlipidemia Above-mentioned chronic medical problems patient will be resumed on appropriate home medications
[2017-09-12 11:58] LABS: Glucose,Whole Blood 215 mg/dL (75-99)
[2017-09-12 14:26] VITALS: BMI 36.6
[2017-09-12] MEDS: AMMONIUM LACTATE 12% LOTION 225 GM BTL TOPICAL SCH ×2 (16:19→21:17)
--- NOTE | 2017-09-12 16:42 | CONS ---
CONSULTATION This is a 72-year-old gentleman with a known history of ischemic cardiomyopathy who also has an ICD and ejection fraction of less than 20% without significant pulmonary hypertension based on an echo from June 2017. He came into the hospital after having been discharged from [facility], where he had hand surgery performed for an infected area that apparently was a methicillin-resistant Staph aureus. However, he came in with increasing shortness of breath, weight gain and edema of lower extremities and appears to be in congestive heart failure. However, his BNP is modestly elevated at 2840. His electrolyte profile is good. On looking at his weight, there is no significant weight gain compared to his previous admission. However, patient indicates to me that he has edema almost up to his thighs and shortness of breath and fatigue. At the time of my evaluation he seems to be reasonably comfortable. He denies any chest discomfort. PAST MEDICAL HISTORY: 1. Ischemic heart disease with previous PCI and ejection fraction of about 20% or so. 2. Hypertension. 3. Type 2 diabetes mellitus. 4. Hyperlipidemia. 5. History of ischemic cardiomyopathy. Patient is status post right hand surgery for an infection with MRSA. Patient also has peripheral arterial disease, underwent intervention of his lower extremity arterial system. ALLERGIES: PENICILLIN. MEDICATIONS: Medications include: 1. Lisinopril 2.5 mg daily. 2. Atorvastatin 80 mg daily. 3. Aspirin 81 mg daily. 4. Metoprolol tartrate 12.5 mg daily. 5. Metformin 1000 mg b.i.d. 6. He is also on antibiotics. 7. [place]. PHYSICAL EXAMINATION: Blood pressure is 124/70. Pulse rate is 70 per minute. HEENT: Unremarkable. Fundus was not examined by me. NECK: Supple. There is JVD of 1 cm. No carotid bruit. Heart exam reveals S1, S2 with distant heart sounds. Lungs reveal fine bibasal rales. ABDOMEN: Soft, nontender. Lower extremities reveal 2 to 3+ edema and diminished pulses. Central nervous system is grossly within normal limits. EKG revealed a sinus mechanism with a baseline artifact, evidence of old anterior ID and also evidence of nonspecific ST-T changes with low voltage pattern. IMPRESSION: 1. Ischemic cardiomyopathy. 2. Status post previous ICD. 3. History of prior multi-vessel percutaneous coronary intervention. 4. Type 2 diabetes mellitus. 5. Hypertension. 6. History of right hand surgery performed a week ago at [facility]. RECOMMENDATIONS: I am recommending that we place him on a Lasix drip, discontinue lisinopril, add losartan 50 mg daily, Aldactone 12.5 mg daily; also cautiously add potassium supplements. Continue diuresis. Check a BNP in the morning and then make further recommendations. I discussed my thoughts in detail with the patient. Thank you very much for the consult. JOSEPH / MAJON: [id number] /
[2017-09-12 17:06] LABS: Glucose,Whole Blood 247 mg/dL (75-99)
[2017-09-12 21:22] LABS: Glucose,Whole Blood 185 mg/dL (75-99)
--- NOTE | 2017-09-12 21:30 | P.CON ---
Consult Note - . Consult date: 09/12/17 Assessment/Plan:: This is a 72-year-old male patient who has been [facility] under the care of Dr. Baker in the past for a right heel wound that is subsequently healed. Patient gives history that earlier this month he had pain and swelling to his right hand. He went to his primary care physician and was given a prescription for Bactrim. He went back for recheck and he was sent into [facility] emergency center for evaluation where he was subsequently transferred to [facility] for treatment of tenosynovitis. Patient states he underwent 2 surgeries and he was discharged on September 04. He initially stayed at his son's home and [place] and return home to [place] on Friday where he lives with his . They've residential care in place. Patient was to receive vancomycin as an outpatient but he missed appointments because he could not walk and because he could not get a ride. The physician that is managing his care is out of [place] and he is receiving vancomycin daily at Dr. Richards/[facility] office for MRSA infection in the right hand. Patient states local wound care is to soak the hand in soapy water and then apply Vaseline gauze daily. He states his hand is sore but does not seem to be any worse. The swelling to his hand is significantly less than when he initially sought treatment. Patient presented to [facility] emergency center on this visit due to swelling and weight gain of 40 pounds over the past 1 week along with shortness of breath , orthopnea. He denies any fever, chills, cough, nasal congestion or drainage. He was placed on IV Lasix and admitted to the selective care unit where he is seen by cardiology and started on a Lasix drip. 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 His children live in [facility] and are not able to assist. He states that he lost strength and muscle while he was in the hospital recently. Lower extremity edema is also making it more difficult for him to ambulate. Please see the consult note is dictated by nurse practitioner Mrs. Jadyn Chase. As noted this 72-year-old gentleman is currently receiving intravenous antibiotic therapy in the outpatient setting at the office as a completion course of therapy after his hand surgery at an outside hospital. MRSA was isolated however he is a great difficulty with compliance to his visits. He has had 1 infusion this week. At that time he was visibly short of breath and was suggested to go to the emergency center which he refused. However within a day he became more short of breath and did present to the emergency center and subsequently has been admitted. Found to have CHF as a complication of his ischemic cardiomyopathy. He is in place and an insulin drip with improvement of his profound shortness of breath and lower extremity edema. Patient does have the surgical wound to the right hand third finger performed at the outside hospital. MRSA was found at that site. He will continue with his vancomycin therapy. Local wound care with a nonstick dressing will be utilized. Elevate the hand as much as he can for comfort and to reduce edema. The patient would do well to have physical therapy evaluation during his stay determine if he is capable of returning to the home setting or require a course of rehab. I agree with evaluation, assessment and plan is dictated by nurse practitioner Mrs. Jadyn Chase.
[2017-09-13 05:51] LABS: Glucose,Whole Blood 233 mg/dL (75-99)
[2017-09-13 06:30] LABS: Anion Gap 10 mmol/L; Blood Urea Nitrogen 15 mg/dL (9-20); Calcium 9.2 mg/dL (8.4-10.2); Carbon Dioxide 29 mmol/L (22-30); Chloride 99 mmol/L (98-107); Glucose 231 mg/dL (74-99); Potassium 3.8 mmol/L (3.5-5.1); Sodium 138 mmol/L (137-145)
[2017-09-13] MEDS: FUROSEMIDE 250 MG in SODIUM CHLORIDE 0.9% 225 ML IVP SCH (07:24)
[2017-09-13] MEDS: LOSARTAN 50 MG TAB PO SCH (07:29)
[2017-09-13] MEDS: POTASSIUM CHLORIDE ER 20 MEQ TAB.ER PO SCH ×2 (07:29→20:42)
[2017-09-13] MEDS: METOPROLOL TARTRATE 12.5 MG TAB PO SCH ×2 (07:29→20:42)
[2017-09-13] MEDS: ATORVASTATIN 80 MG TAB PO SCH (07:29)
[2017-09-13] MEDS: AMMONIUM LACTATE 12% LOTION 225 GM BTL TOPICAL SCH ×2 (07:29→20:47)
[2017-09-13] MEDS: SPIRONOLACTONE 25 MG TAB PO SCH (07:29)
[2017-09-13] MEDS: INSULIN ASPART 100 UNIT/ML 1 ML 10 ML VIAL SQ SCH ×4 (07:33→20:46)
[2017-09-13] MEDS: ASPIRIN 81 MG PO SCH (08:53)
[2017-09-13 11:24] LABS: Glucose,Whole Blood 192 mg/dL (75-99)
[2017-09-13] MEDS ORDERED: POTASSIUM CHLORIDE ER 20 MEQ TAB.ER PO STA (12:06)
[2017-09-13] MEDS ORDERED: VANCOMYCIN TROUGH DUE 1 EACH MISC MISCELLANE ONE (15:00)
--- NOTE | 2017-09-13 15:10 | PN ---
PROGRESS NOTE This is a gentleman with ischemic cardiomyopathy with heart failure. I placed him on a Lasix drip yesterday. This morning he feels better. He has put out a lot of urine. Weight is also down by about 3 pounds or so. Clinically, he looks and feels better. The edema has improved modestly. Vital signs are stable. JVD is evident. S1, S2 heard normally. Short systolic murmur is noted. Lungs reveal improved air entry. Abdomen is soft. Lower extremity edema persists, but there is mild to moderate improvement. MMODL / IJN: [id number] /
[2017-09-13 16:47] LABS: Glucose,Whole Blood 187 mg/dL (75-99)
[2017-09-13] MEDS: VANCOMYCIN 2,000 MG in SODIUM CHLORIDE 0.9% 500 ML IVPB SCH (17:54)
[2017-09-13] MEDS: HYDROcodone/APAP 7.5-325MG 1 EACH TAB PO PRN (17:55)
[2017-09-13 20:45] LABS: Glucose,Whole Blood 249 mg/dL (75-99)
[2017-09-14] MEDS: HYDROcodone/APAP 7.5-325MG 1 EACH TAB PO PRN (02:45)
[2017-09-14 06:01] LABS: Glucose,Whole Blood 241 mg/dL (75-99)
[2017-09-14] MEDS: INSULIN ASPART 100 UNIT/ML 1 ML 10 ML VIAL SQ SCH ×4 (06:21→21:37)
[2017-09-14 07:06] LABS: Anion Gap 14 mmol/L; Blood Urea Nitrogen 15 mg/dL (9-20); Calcium 9.1 mg/dL (8.4-10.2); Carbon Dioxide 26 mmol/L (22-30); Chloride 99 mmol/L (98-107); Glucose 226 mg/dL (74-99); Magnesium 1.8 mg/dL (1.6-2.3); Sodium 139 mmol/L (137-145)
[2017-09-14] MEDS: FUROSEMIDE 250 MG in SODIUM CHLORIDE 0.9% 225 ML IVP SCH (07:48)
[2017-09-14] MEDS: VANCOMYCIN 2,000 MG in SODIUM CHLORIDE 0.9% 500 ML IVPB SCH (07:48)
[2017-09-14] MEDS: METOPROLOL TARTRATE 12.5 MG TAB PO SCH ×2 (07:50→21:37)
[2017-09-14] MEDS: POTASSIUM CHLORIDE ER 20 MEQ TAB.ER PO SCH ×2 (07:50→21:37)
[2017-09-14] MEDS: LOSARTAN 50 MG TAB PO SCH (07:50)
[2017-09-14] MEDS: SPIRONOLACTONE 25 MG TAB PO SCH (07:50)
[2017-09-14] MEDS: ASPIRIN 81 MG PO SCH (07:50)
[2017-09-14] MEDS: ATORVASTATIN 80 MG TAB PO SCH (07:50)
[2017-09-14] MEDS: AMMONIUM LACTATE 12% LOTION 225 GM BTL TOPICAL SCH ×2 (08:02→21:36)
[2017-09-14 11:28] LABS: Glucose,Whole Blood 292 mg/dL (75-99)
[2017-09-14] MEDS: METOLAZONE 5 MG TAB PO SCH (11:59)
--- NOTE | 2017-09-14 15:20 | PN ---
PROGRESS NOTE This gentleman has ischemic cardiomyopathy, significant lower extremity edema, has lost nearly 12 pounds since admission. We will continue Lasix drip 1 more day and check BNP. Check BMP tomorrow and also add metolazone 5 mg daily. Vital signs are stable. JVD is evident. S1-S2 heard normally. Heart sounds are distantly. Lungs revealed decent air entry. Abdomen is soft. Lower extremities reveal bilateral edema with modest improvement. We will try and switch him to oral Lasix in the next 24 hours and see how he does. MMODL / IJN: [id number] /
--- NOTE | 2017-09-14 16:35 | P.PN ---
Subjective Progress Note Date: 09/14/17 Principal diagnosis: Progressive shortness of breath This is a 72-year-old male patient who [facility] under the care of Dr. Baker in the past for a right heel wound that is subsequently healed. Patient gives history that earlier this month he had pain and swelling to his right hand. He went to his primary care physician and was given a prescription for Bactrim. He went back for recheck and he was sent into [facility] emergency center for evaluation where he was subsequently transferred to [facility] for treatment of tenosynovitis. Patient states he underwent 2 surgeries and he was discharged on September 04. He initially stayed at his son's home and [place] and return home to [place] on Friday where he lives with his . They've residential care in place. Patient was to receive vancomycin as an outpatient but he missed appointmentsbecause he could not walk and because he could not get a ride. The physician that is managing his care is out of [place] and he is receiving vancomycin daily at Dr. Richards/[facility] office for MRSA infection in the right hand. Patient states local wound care is to soak the hand in soapy water and then apply Vaseline gauze daily. He states his hand is sore but does not seem to be any worse. The swelling to his hand is significantly less than when he initially sought treatment. Patient presented to [facility] emergency center on this visit due to swelling and weight gain of 40 pounds over the past 1 week along with shortness of breath , orthopnea. He denies any fever, chills, cough, nasal congestion or drainage. He was placed on IV Lasix and admitted to the selective care unit where he is seen by cardiology and started on a Lasix drip. 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 His children live in [facility] and are not able to assist. He states that he lost strength and muscle while he was in the hospital recently. Lower extremity edema is also making it more difficult for him to ambulate. 09/14/2017 with the lasix drip has had a marked improvement of breathing and edema, he has noticed that his hand edema is also even improved. Making the hand more functional. Hand pain is improved. Denies other new acute symptoms. Objective - Vital Signs Vital signs: Vital Signs Temp 96.5 F L 09/14/17 15:25 Pulse 81 09/14/17 15:25 Resp 16 09/14/17 15:25 BP 103/55 09/14/17 15:25 Pulse Ox 95 09/14/17 15:25 Intake & Output 09/13/17 09/14/17 09/14/17 18:59 06:59 18:59 Intake Total 1173.667 300 724 Output Total 2725 2225 2925 Balance -1551.333 -1925 -2201 Weight 116.9 kg Intake: Intake, IV Titration 213.667 244 Amount Furosemide 250 mg In 213.667 244 Sodium Chloride 0.9% 225 ml @ 10 MG/HR 10 mls/hr IVP .Q24H [facility] Rx#: [id number] Oral 960 300 480 Output: Urine 2725 2225 2925 Other: Voiding Method Toilet Toilet Toilet Urinal Urinal Urinal # Voids 1 1 1 - Exam Constitutional General appearance: Feeling considerably better, with his diuresis is less short of breath is able to get to the restroom much more readily. - EENT Eyes: no abnormal pupil, anicteric sclerae, no edentulous, PERRLA, no scleral icterus - Respiratory Respiratory: Improved air entry bilaterally, few crackles at the bases only. Wheezes are noted. - Cardiovascular Heart sounds: normal: S1, S2 - Gastrointestinal General gastrointestinal: no absent bowel sounds, no decreased bowel sounds, no distended, normal bowel sounds, no organomegaly, no tenderness - Integumentary Wound to the distal fifth metatarsal, palmar side with wound to the proximal phalanx, edema and mild erythema, white tissue along wound edges. On the dorsal surface there is a wound to the distal phalanx without drainage along with peeling skin over most of the finger, dorsal side. No redness into the plantar surface, wrist or arm. Decreased range of motion to the fourth digit. Capillary refill immediate. The swelling to his hand is improved since the last evaluation. The extensive lower extremity edema is much improved. Integumentary: cellulitis, no cyanotic - Neurologic Neurologic: CNII-XII intact - Musculoskeletal Musculoskeletal: generalized weakness - Labs CBC & Chem 7: 09/11/17 12:14 09/14/17 05:17 Labs: Abnormal Lab Results - Last 24 Hours (Table) 09/13/17 09/13/17 09/14/17 Range/Units 16:44 20:42 05:17 Glucose 226 H (74-99) mg/dL POC Glucose (mg/dL) 187 H 249 H (75-99) mg/dL 09/14/17 09/14/17 Range/Units 05:58 11:25 Glucose (74-99) mg/dL POC Glucose (mg/dL) 241 H 292 H (75-99) mg/dL Laboratory Results WBC 7.4 k/uL (3.8-10.6) 09/11/17 12:14 RBC 3.95 m/uL (4.30-5.90) L 09/11/17 12:14 Hgb 11.3 gm/dL (13.0-17.5) L 09/11/17 12:14 Hct 36.8 % (39.0-53.0) L 09/11/17 12:14 MCV 93.4 fL (80.0-100.0) 09/11/17 12:14 MCH 28.6 pg (25.0-35.0) 09/11/17 12:14 MCHC 30.6 g/dL (31.0-37.0) L 09/11/17 12:14 RDW 14.4 % (11.5-15.5) 09/11/17 12:14 Plt Count 161 k/uL (150-450) 09/11/17 12:14 Neutrophils % 75 % 09/11/17 12:14 Lymphocytes % 14 % 09/11/17 12:14 Monocytes % 5 % 09/11/17 12:14 Eosinophils % 4 % 09/11/17 12:14 Basophils % 1 % 09/11/17 12:14 Neutrophils # 5.6 k/uL (1.3-7.7) 09/11/17 12:14 Lymphocytes # 1.1 k/uL (1.0-4.8) 09/11/17 12:14 Monocytes # 0.4 k/uL (0-1.0) 09/11/17 12:14 Eosinophils # 0.3 k/uL (0-0.7) 09/11/17 12:14 Basophils # 0.0 k/uL (0-0.2) 09/11/17 12:14 PT 11.3 sec (9.0-12.0) 09/11/17 12:14 INR 1.2 (<1.2) H 09/11/17 12:14 APTT 32.5 sec (22.0-30.0) H 09/11/17 12:14 Sodium 139 mmol/L (137-145) 09/14/17 05:17 Potassium 4.0 mmol/L (3.5-5.1) 09/14/17 05:17 Chloride 99 mmol/L (98-107) 09/14/17 05:17 Carbon Dioxide 26 mmol/L (22-30) 09/14/17 05:17 Anion Gap 14 mmol/L 09/14/17 05:17 BUN 15 mg/dL (9-20) 09/14/17 05:17 Creatinine 0.82 mg/dL (0.66-1.25) 09/14/17 05:17 Est GFR (MDRD) Af Amer >60 (>60 ml/min/1.73 sqM) 09/14/17 05:17 Est GFR (MDRD) Non-Af >60 (>60 ml/min/1.73 sqM) 09/14/17 05:17 Glucose 226 mg/dL (74-99) H 09/14/17 05:17 POC Glucose (mg/dL) 292 mg/dL (75-99) H 09/14/17 11:25 POC Glu [place] [employer] ID Maricruz Su 09/14/17 11:[address] Glu mg/dL 249 09/11/17 12:16 Hemoglobin A1c 10.3 % (4.0-6.0) H 09/11/17 12:16 Calcium 9.1 mg/dL (8.4-10.2) 09/14/17 05:17 Magnesium 1.8 mg/dL (1.6-2.3) 09/14/17 05:17 Total Bilirubin 0.8 mg/dL (0.2-1.3) 09/11/17 12:14 AST 15 U/L (17-59) L 09/11/17 12:14 ALT 30 U/L (21-72) 09/11/17 12:14 Alkaline Phosphatase 97 U/L (38-126) 09/11/17 12:14 Total Creatine Kinase 66 U/L (55-170) 09/11/17 12:14 CK-MB (CK-2) 1.9 ng/mL (0.0-2.4) 09/11/17 12:14 CK-MB (CK-2) Rel Index 2.9 09/11/17 12:14 Troponin I 0.015 ng/mL (0.000-0.034) 09/11/17 12:14 NT-Pro-B Natriuret Pep 2060 pg/mL 09/14/17 05:17 Total Protein 6.1 g/dL (6.3-8.2) L 09/11/17 12:14 Albumin 3.3 g/dL (3.5-5.0) L 09/11/17 12:14 Vancomycin Trough 16.4 ug/mL 09/13/17 15:01 Random Vancomycin 6.9 ug/mL 09/11/17 12:14 Assessment and Plan (1) CHF (congestive heart failure) Current Visit: Yes Status: Acute Code(s): I50.9 - HEART FAILURE, UNSPECIFIED SNOMED Code(s): 87739156 (2) Congestive heart failure with left ventricular systolic dysfunction Current Visit: No Status: Acute Code(s): I50.20 - UNSPECIFIED SYSTOLIC ( CONGESTIVE) HEART FAILURE SNOMED Code(s): 534748139 (3) HTN (hypertension) Current Visit: No Status: Acute Code(s): I10 - ESSENTIAL (PRIMARY) HYPERTENSION SNOMED Code(s): 61263063 (4) MRSA (methicillin resistant staph aureus) culture positive Current Visit: No Status: Acute Code(s): Z22.322 - CARRIER OR SUSPECTED CARRIER OF METHICILLIN RESIS STAPH SNOMED Code(s): 895385724 (5) Infection of right hand Narrative/Plan: As noted this 72-year-old gentleman is currently receiving intravenous antibiotic therapy in the outpatient setting at the office as a completion course of therapy after his hand surgery at an outside hospital. MRSA was isolated however he is a great difficulty with compliance to his visits. He has had 1 infusion this week. At that time he was visibly short of breath and was suggested to go to the emergency center which he refused. However within a day he became more short of breath and did present to the emergency center and subsequently has been admitted. Found to have CHF as a complication of his ischemic cardiomyopathy. He is in place and an insulin drip with improvement of his profound shortness of breath and lower extremity edema. Patient does have the surgical wound to the right hand third finger performed at the outside hospital. MRSA was found at that site. He will continue with his vancomycin therapy. Local wound care with a nonstick dressing will be utilized. Elevate the hand as much as he can for comfort and to reduce edema. The patient would do well to have physical therapy evaluation during his stay determine if he is capable of returning to the home setting or require a course of rehab And 09/14/2017 the patient is showing some marked improvement. With his Lasix intravenous infusion he's had an extensive diuresis which has been quite helpful. Zaroxolyn has been added to further help with diuresis and systolic congestive heart failure. Patient feels considerably better today. The right hand MRSA infection is improving. The swelling to the hands improved as his diuresis has occurred and antibiotic therapy has occured. Patient likely needs another one week of antibiotic therapy for that complex MRSA infection of the hand. Current Visit: Yes Status: Acute Code(s): L08.9 - LOCAL INFECTION OF THE SKIN AND SUBCUTANEOUS TISSUE, UNSP SNOMED Code(s): 222011107
[2017-09-14 17:05] LABS: Glucose,Whole Blood 224 mg/dL (75-99)
--- NOTE | 2017-09-14 18:00 | P.PN ---
Progress Note - Text Progress Note Date: 09/13/17 Date of service: 09/13/2017 Presenting complaint: Short of breath Interval history: Patient admitted with CHF exacerbation. On a Lasix drip. Having good urine output. Breathing is improving. Did tolerate his diet. Had a bowel movement. Sitting up in a chair Review of systems: Was done for constitutional, cardiovascular, GI, pulmonary. relevant finding as above Current medications include IV Lasix drip, IV vancomycin On examination: VITAL SIGNS: 97.3, 68, 18, 108/61, 96% GENERAL APPEARANCE: Sitting up in a chair. HEENT: Normal external appearance of nose and ear. Oral cavity normal EYES: Pupils equal. Conjunctiva normal. NECK: JVD unable to assess. Mass not palpable. RESPIRATORY: Respiratory effort increased. Lungs decreased breath sounds. CARDIOVASCULAR: First and second sounds normal. Gross edema. ABDOMEN: Soft. Liver and spleen not palpable. No tenderness. No mass palpable. PSYCHIATRY: Alert and oriented x3. Mood and affect normal. Investigations: Potassium 3.8, BUN 15, creatinine 0.80 proBNP 2190 Assessment: -Acute on chronic congestive heart failure exacerbation from systolic dysfunction EF less than 20% from underlying coronary artery disease, slow to respond -Coronary artery disease with prior history of coronary artery bypass -Diabetes mellitus type 2 on oral hypoglycemic, causing peripheral neuropathy -Essential hypertension -Hyperlipidemia -Peripheral arterial disease -Obesity BMI more than 35.9 -Right hand third finger infection, from MRSA Plan: Continue patient on IV Lasix. Follow electrolytes closely. Patient also IV vancomycin. Care was discussed with the patient.
--- NOTE | 2017-09-14 18:02 | P.PN ---
Progress Note - Text Progress Note Date: 09/14/17 Date of service-02/11 2018 Presenting complaint: Short of breath Interval history: Patient admitted with CHF exacerbation. On a Lasix drip. Having good urine output. Breathing is improving. Feeling better. Sitting up in a chair. Over 5000 mL in negative fluid balance Review of systems: Was done for constitutional, cardiovascular, GI, pulmonary. relevant finding as above Current medications include IV Lasix drip, IV vancomycin On examination: VITAL SIGNS: 96.5, 81, 16, 103/55, 95% room air GENERAL APPEARANCE: Sitting up in a chair. HEENT: Normal external appearance of nose and ear. Oral cavity normal EYES: Pupils equal. Conjunctiva normal. NECK: JVD unable to assess. Mass not palpable. RESPIRATORY: Respiratory effort increased. Lungs decreased breath sounds. CARDIOVASCULAR: First and second sounds normal. Gross edema. ABDOMEN: Soft. Liver and spleen not palpable. No tenderness. No mass palpable. PSYCHIATRY: Alert and oriented x3. Mood and affect normal. RIGHT hand: In a dressing Investigations: Pressure 4, BUN 15, creatinine 0.8 proBNP 2059 Assessment: -Acute on chronic congestive heart failure exacerbation from systolic dysfunction EF less than 20% from underlying coronary artery disease, slow to respond -Coronary artery disease with prior history of coronary artery bypass -Diabetes mellitus type 2 on oral hypoglycemic, causing peripheral neuropathy -Essential hypertension -Hyperlipidemia -Peripheral arterial disease -Obesity BMI more than 35.9 -Right hand third finger infection, from MRSA Plan: Continue patient on IV Lasix. Follow electrolytes closely. Patient also IV vancomycin. Care was discussed with the patient
[2017-09-14 20:52] LABS: Glucose,Whole Blood 200 mg/dL (75-99)
[2017-09-14] MEDS: metFORMIN 500 MG TAB PO SCH (21:37)
[2017-09-15] MEDS: VANCOMYCIN 2,000 MG in SODIUM CHLORIDE 0.9% 500 ML IVPB SCH ×2 (00:36→15:51)
[2017-09-15 05:54] LABS: Glucose,Whole Blood 240 mg/dL (75-99)
[2017-09-15 06:38] LABS: Anion Gap 12 mmol/L; Blood Urea Nitrogen 19 mg/dL (9-20); Calcium 9.8 mg/dL (8.4-10.2); Carbon Dioxide 30 mmol/L (22-30); Chloride 94 mmol/L (98-107); Glucose 221 mg/dL (74-99); Potassium 4.2 mmol/L (3.5-5.1); Sodium 136 mmol/L (137-145)
[2017-09-15] MEDS: INSULIN ASPART 100 UNIT/ML 1 ML 10 ML VIAL SQ SCH ×4 (07:56→21:42)
[2017-09-15] MEDS: FUROSEMIDE 250 MG in SODIUM CHLORIDE 0.9% 225 ML IVP SCH (08:23)
[2017-09-15] MEDS: METOPROLOL TARTRATE 12.5 MG TAB PO SCH ×3 (08:28→21:28)
[2017-09-15] MEDS: SPIRONOLACTONE 25 MG TAB PO SCH (08:28)
[2017-09-15] MEDS: POTASSIUM CHLORIDE ER 20 MEQ TAB.ER PO SCH ×3 (08:28→21:28)
[2017-09-15] MEDS: metFORMIN 500 MG TAB PO SCH ×2 (08:28→21:22)
[2017-09-15] MEDS: ATORVASTATIN 80 MG TAB PO SCH (08:29)
[2017-09-15] MEDS: METOLAZONE 5 MG TAB PO SCH (08:29)
[2017-09-15] MEDS: ASPIRIN 81 MG PO SCH (08:29)
[2017-09-15] MEDS: LOSARTAN 50 MG TAB PO SCH (08:29)
[2017-09-15 11:35] LABS: Glucose,Whole Blood 285 mg/dL (75-99)
[2017-09-15] MEDS: AMMONIUM LACTATE 12% LOTION 225 GM BTL TOPICAL SCH ×2 (11:57→21:27)
--- NOTE | 2017-09-15 14:53 | XR ---
EXAMINATION TYPE: XR chest 2V DATE OF EXAM: 09/15/2017 COMPARISON: Prior chest x-ray 09/11/2017 HISTORY: Follow-up congestive heart failure TECHNIQUE: Frontal and lateral views of the chest are obtained. FINDINGS: Heart size is stable. Interstitium is mildly increased. No pneumothorax or significant int erval change in left pleural effusion. Left-sided PICC line shows the distal tip near the cavoatrial junction. Intracardiac defibrillator lead is stable. There are coronary artery calcifications. Promin ent lung volume may be indicative of underlying COPD. IMPRESSION: Findings are similar to prior exam. Correlate for pulmonary venous hypertension and inte rstitial edema. Suspect small left pleural effusion.
[2017-09-15] MEDS: FUROSEMIDE 80 MG TAB PO SCH (15:52)
[2017-09-15 16:30] LABS: Glucose,Whole Blood 151 mg/dL (75-99)
--- NOTE | 2017-09-15 16:30 | P.PN ---
Progress Note - Text Progress Note Date: 09/15/17 Presenting complaint: Short of breath Interval history: Patient admitted with CHF exacerbation. On a Lasix drip. Having good urine output. Breathing is improving. Feeling better. Sitting up in a chair. Over 5000 mL in negative fluid balance. Edema coming down Review of systems: Was done for constitutional, cardiovascular, GI, pulmonary. relevant finding as above Current medications include IV Lasix drip, IV vancomycin On examination: VITAL SIGNS: 97.5, 60, 20, 177, 99% room air GENERAL APPEARANCE: Sitting up in a chair. HEENT: Normal external appearance of nose and ear. Oral cavity normal EYES: Pupils equal. Conjunctiva normal. NECK: JVD unable to assess. Mass not palpable. RESPIRATORY: Respiratory effort increased. Lungs decreased breath sounds. CARDIOVASCULAR: First and second sounds normal. Edema coming down. ABDOMEN: Soft. Liver and spleen not palpable. No tenderness. No mass palpable. PSYCHIATRY: Alert and oriented x3. Mood and affect normal. RIGHT hand: Third finger, In a dressing Investigations: Potassium 4.2, BUN 19, creatinine 0.90 Assessment: -Acute on chronic congestive heart failure exacerbation from systolic dysfunction EF less than 20% from underlying coronary artery disease, improving -Coronary artery disease with prior history of coronary artery bypass -Diabetes mellitus type 2 on oral hypoglycemic, causing peripheral neuropathy -Essential hypertension -Hyperlipidemia -Peripheral arterial disease -Obesity BMI more than 35.9 -Right hand third finger infection, from MRSA Plan: Patient be switched to oral Lasix by cardiology. On IV vancomycin. Overall doing better.
--- NOTE | 2017-09-15 20:43 | PN ---
PROGRESS NOTE This gentleman has ischemic cardiomyopathy with heart failure. I have placed him on a Lasix drip. We will continue it for one more day. His edema is less. His breathing is easier. His weight has improved. Vital signs are stable. JVD is evident, about 1 cm; appears less than yesterday. No carotid bruit. S1, S2 heard normally but distantly. Short systolic murmur noted. Lungs reveal improved air entry. Abdomen is soft. Lower extremity edema has improved. Plan is to continue current medications and switch him to oral Lasix 80 mg b.i.d. with metolazone, possible discharge in 24 hours. Discussed with the patient at length. MMODL / IJN: [id number] /
[2017-09-15 21:38] LABS: Glucose,Whole Blood 186 mg/dL (75-99)
--- NOTE | 2017-09-15 21:45 | P.PN ---
Subjective Progress Note Date: 09/15/17 Principal diagnosis: Progressive shortness of breath This is a 72-year-old male patient who [facility] under the care of Dr. Baker in the past for a right heel wound that is subsequently healed. Patient gives history that earlier this month he had pain and swelling to his right hand. He went to his primary care physician and was given a prescription for Bactrim. He went back for recheck and he was sent into [facility] emergency center for evaluation where he was subsequently transferred to [facility] for treatment of tenosynovitis. Patient states he underwent 2 surgeries and he was discharged on September 04. He initially stayed at his son's home and [place] and return home to [place] on Friday where he lives with his . They've residential care in place. Patient was to receive vancomycin as an outpatient but he missed appointmentsbecause he could not walk and because he could not get a ride. The physician that is managing his care is out of [place] and he is receiving vancomycin daily at Dr. Richards/[facility] office for MRSA infection in the right hand. Patient states local wound care is to soak the hand in soapy water and then apply Vaseline gauze daily. He states his hand is sore but does not seem to be any worse. The swelling to his hand is significantly less than when he initially sought treatment. Patient presented to [facility] emergency center on this visit due to swelling and weight gain of 40 pounds over the past 1 week along with shortness of breath , orthopnea. He denies any fever, chills, cough, nasal congestion or drainage. He was placed on IV Lasix and admitted to the selective care unit where he is seen by cardiology and started on a Lasix drip. 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 His children live in [facility] and are not able to assist. He states that he lost strength and muscle while he was in the hospital recently. Lower extremity edema is also making it more difficult for him to ambulate. 09/14/2017 with the lasix drip has had a marked improvement of breathing and edema, he has noticed that his hand edema is also even improved. Making the hand more functional. Hand pain is improved. Denies other new acute symptoms. 09/15/2017 patient relates to feeling improved, less short of breath, up and ambulating in room and has little discomfort in right hand. Denies chills or rigors does still fell weak but improved. Objective - Vital Signs Vital signs: Vital Signs Temp 96.8 F L 09/15/17 20:00 Pulse 70 09/15/17 20:00 Resp 16 09/15/17 20:00 BP 126/60 09/15/17 20:00 Pulse Ox 97 09/15/17 20:00 Intake & Output 09/15/17 09/15/17 09/16/17 06:59 18:59 06:59 Intake Total 1285.833 Output Total 3600 1750 600 Balance -3600 -464.167 -600 Weight 116.9 kg 112.4 kg Intake: IV 80 Furosemide 250 mg In 80 Sodium Chloride 0.9% 225 ml @ 10 MG/HR 10 mls/hr IVP .Q24H [facility] Rx#: [id number] Intake, IV Titration 245.833 Amount Furosemide 250 mg In 245.833 Sodium Chloride 0.9% 225 ml @ 10 MG/HR 10 mls/hr IVP .Q24H [facility] Rx#: [id number] Oral 960 Output: Urine 3600 1750 600 Other: Voiding Method Toilet Toilet Urinal Urinal # Voids 2 - Exam Constitutional General appearance: Feeling considerably better, with his diuresis is less short of breath is able to get to the restroom much more readily. - EENT Eyes: no abnormal pupil, anicteric sclerae, no edentulous, PERRLA, no scleral icterus - Respiratory Respiratory: Improved air entry bilaterally, few crackles at the bases only. Wheezes are noted. - Cardiovascular Heart sounds: normal: S1, S2 - Gastrointestinal General gastrointestinal: no absent bowel sounds, no decreased bowel sounds, no distended, normal bowel sounds, no organomegaly, no tenderness - Integumentary Wound to the distal fifth metatarsal, palmar side with wound to the proximal phalanx, edema and mild erythema, white tissue along wound edges. On the dorsal surface there is a wound to the distal phalanx without drainage along with peeling skin over most of the finger, dorsal side. No redness into the plantar surface, wrist or arm. Decreased range of motion to the fourth digit. Capillary refill immediate. The swelling to his hand is further improved peeling skin is removed erythema improved The extensive lower extremity edema is much improved. Integumentary: cellulitis, no cyanotic - Neurologic Neurologic: CNII-XII intact - Musculoskeletal Musculoskeletal: generalized weakness - Labs CBC & Chem 7: 09/11/17 12:14 09/15/17 05:24 Labs: Abnormal Lab Results - Last 24 Hours (Table) 09/15/17 09/15/17 09/15/17 Range/Units 05:24 05:53 11:13 Sodium 136 L (137-145) mmol/L Chloride 94 L (98-107) mmol/L Glucose 221 H (74-99) mg/dL POC Glucose (mg/dL) 240 H 285 H (75-99) mg/dL 09/15/17 Range/Units 16:25 Sodium (137-145) mmol/L Chloride (98-107) mmol/L Glucose (74-99) mg/dL POC Glucose (mg/dL) 151 H (75-99) mg/dL Laboratory Results WBC 7.4 k/uL (3.8-10.6) 09/11/17 12:14 RBC 3.95 m/uL (4.30-5.90) L 09/11/17 12:14 Hgb 11.3 gm/dL (13.0-17.5) L 09/11/17 12:14 Hct 36.8 % (39.0-53.0) L 09/11/17 12:14 MCV 93.4 fL (80.0-100.0) 09/11/17 12:14 MCH 28.6 pg (25.0-35.0) 09/11/17 12:14 MCHC 30.6 g/dL (31.0-37.0) L 09/11/17 12:14 RDW 14.4 % (11.5-15.5) 09/11/17 12:14 Plt Count 161 k/uL (150-450) 09/11/17 12:14 Neutrophils % 75 % 09/11/17 12:14 Lymphocytes % 14 % 09/11/17 12:14 Monocytes % 5 % 09/11/17 12:14 Eosinophils % 4 % 09/11/17 12:14 Basophils % 1 % 09/11/17 12:14 Neutrophils # 5.6 k/uL (1.3-7.7) 09/11/17 12:14 Lymphocytes # 1.1 k/uL (1.0-4.8) 09/11/17 12:14 Monocytes # 0.4 k/uL (0-1.0) 09/11/17 12:14 Eosinophils # 0.3 k/uL (0-0.7) 09/11/17 12:14 Basophils # 0.0 k/uL (0-0.2) 09/11/17 12:14 PT 11.3 sec (9.0-12.0) 09/11/17 12:14 INR 1.2 (<1.2) H 09/11/17 12:14 APTT 32.5 sec (22.0-30.0) H 09/11/17 12:14 Sodium 136 mmol/L (137-145) L 09/15/17 05:24 Potassium 4.2 mmol/L (3.5-5.1) 09/15/17 05:24 Chloride 94 mmol/L (98-107) L 09/15/17 05:24 Carbon Dioxide 30 mmol/L (22-30) 09/15/17 05:24 Anion Gap 12 mmol/L 09/15/17 05:24 BUN 19 mg/dL (9-20) 09/15/17 05:24 Creatinine 0.90 mg/dL (0.66-1.25) 09/15/17 05:24 Est GFR (MDRD) Af Amer >60 (>60 ml/min/1.73 sqM) 09/15/17 05:24 Est GFR (MDRD) Non-Af >60 (>60 ml/min/1.73 sqM) 09/15/17 05:24 Glucose 221 mg/dL (74-99) H 09/15/17 05:24 POC Glucose (mg/dL) 186 mg/dL (75-99) H 09/15/17 21:28 POC Glu [employer] Aga Yang 09/15/17 21:[address] Glu mg/dL 249 09/11/17 12:16 Hemoglobin A1c 10.3 % (4.0-6.0) H 09/11/17 12:16 Calcium 9.8 mg/dL (8.4-10.2) 09/15/17 05:24 Magnesium 1.8 mg/dL (1.6-2.3) 09/14/17 05:17 Total Bilirubin 0.8 mg/dL (0.2-1.3) 09/11/17 12:14 AST 15 U/L (17-59) L 09/11/17 12:14 ALT 30 U/L (21-72) 09/11/17 12:14 Alkaline Phosphatase 97 U/L (38-126) 09/11/17 12:14 Total Creatine Kinase 66 U/L (55-170) 09/11/17 12:14 CK-MB (CK-2) 1.9 ng/mL (0.0-2.4) 09/11/17 12:14 CK-MB (CK-2) Rel Index 2.9 09/11/17 12:14 Troponin I 0.015 ng/mL (0.000-0.034) 09/11/17 12:14 NT-Pro-B Natriuret Pep 2060 pg/mL 09/14/17 05:17 Total Protein 6.1 g/dL (6.3-8.2) L 09/11/17 12:14 Albumin 3.3 g/dL (3.5-5.0) L 09/11/17 12:14 Vancomycin Trough 16.4 ug/mL 09/13/17 15:01 Random Vancomycin 6.9 ug/mL 09/11/17 12:14 Assessment and Plan (1) CHF (congestive heart failure) Current Visit: Yes Status: Acute Code(s): I50.9 - HEART FAILURE, UNSPECIFIED SNOMED Code(s): 36052632 (2) Congestive heart failure with left ventricular systolic dysfunction Current Visit: No Status: Acute Code(s): I50.20 - UNSPECIFIED SYSTOLIC ( CONGESTIVE) HEART FAILURE SNOMED Code(s): 588487572 (3) HTN (hypertension) Current Visit: No Status: Acute Code(s): I10 - ESSENTIAL (PRIMARY) HYPERTENSION SNOMED Code(s): 50764718 (4) MRSA (methicillin resistant staph aureus) culture positive Current Visit: No Status: Acute Code(s): Z22.322 - CARRIER OR SUSPECTED CARRIER OF METHICILLIN RESIS STAPH SNOMED Code(s): 408870644 (5) Infection of right hand Narrative/Plan: As noted this 72-year-old gentleman is currently receiving intravenous antibiotic therapy in the outpatient setting at the office as a completion course of therapy after his hand surgery at an outside hospital. MRSA was isolated however he is a great difficulty with compliance to his visits. He has had 1 infusion this week. At that time he was visibly short of breath and was suggested to go to the emergency center which he refused. However within a day he became more short of breath and did present to the emergency center and subsequently has been admitted. Found to have CHF as a complication of his ischemic cardiomyopathy. He is in place and an insulin drip with improvement of his profound shortness of breath and lower extremity edema. Patient does have the surgical wound to the right hand third finger performed at the outside hospital. MRSA was found at that site. He will continue with his vancomycin therapy. Local wound care with a nonstick dressing will be utilized. Elevate the hand as much as he can for comfort and to reduce edema. The patient would do well to have physical therapy evaluation during his stay determine if he is capable of returning to the home setting or require a course of rehab And 09/14/2017 the patient is showing some marked improvement. With his Lasix intravenous infusion he's had an extensive diuresis which has been quite helpful. Zaroxolyn has been added to further help with diuresis and systolic congestive heart failure. Patient feels considerably better today. The right hand MRSA infection is improving. The swelling to the hands improved as his diuresis has occurred and antibiotic therapy has occured. Patient likely needs another one week of antibiotic therapy for that complex MRSA infection of the hand. 09/15/2017 has further improvement,diuresis has been effective and patient is improved and is potential plan for discharge tomorrow. Will arrange to complete the vancomycin at the office till 09/20/2017 Current Visit: Yes Status: Acute Code(s): L08.9 - LOCAL INFECTION OF THE SKIN AND SUBCUTANEOUS TISSUE, UNSP SNOMED Code(s): 561644839
[2017-09-16] MEDS ORDERED: ONDANSETRON 4 MG/2 ML VIAL IVP STA (02:09)
[2017-09-16] MEDS ORDERED: ONDANSETRON 4 MG/2 ML VIAL ONE (02:12)
[2017-09-16 06:21] LABS: Glucose,Whole Blood 276 mg/dL (75-99)
[2017-09-16] MEDS: INSULIN ASPART 100 UNIT/ML 1 ML 10 ML VIAL SQ SCH ×4 (06:32→20:52)
[2017-09-16 06:44] LABS: Basophils % (A) 0 %; Eosinophils # (A) 0.1 k/uL (0-0.7); Eosinophils % (A) 2 %; HCT 40.4 % (39.0-53.0); HGB 13.2 gm/dL (13.0-17.5); Lymphocytes # (A) 0.1 k/uL (1.0-4.8); Lymphocytes % (A) 1 %; MCH 29.1 pg (25.0-35.0); MCHC 32.7 g/dL (31.0-37.0); MCV 89.1 fL (80.0-100.0); Mean Platelet Volume 8.8; Monocytes # (A) 0.4 k/uL (0-1.0); Monocytes % (A) 5 %; Neutrophils # (A) 7.3 k/uL (1.3-7.7); Neutrophils % (A) 91 %; Platelet Count 162 k/uL (150-450); RBC 4.54 m/uL (4.30-5.90); RDW 14.1 % (11.5-15.5)
[2017-09-16 06:57] LABS: Anion Gap 11 mmol/L; Blood Urea Nitrogen 31 mg/dL (9-20); Calcium 9.3 mg/dL (8.4-10.2); Carbon Dioxide 28 mmol/L (22-30); Chloride 94 mmol/L (98-107); Glucose 249 mg/dL (74-99); Potassium 5.2 mmol/L (3.5-5.1); Sodium 133 mmol/L (137-145)
[2017-09-16] MEDS: VANCOMYCIN 2,000 MG in SODIUM CHLORIDE 0.9% 500 ML IVPB SCH ×3 (08:03→23:52)
[2017-09-16] MEDS: POTASSIUM CHLORIDE ER 20 MEQ TAB.ER PO SCH (08:04)
[2017-09-16] MEDS: SPIRONOLACTONE 25 MG TAB PO SCH (08:05)
[2017-09-16] MEDS: metFORMIN 500 MG TAB PO SCH ×2 (08:05→20:54)
[2017-09-16] MEDS: ATORVASTATIN 80 MG TAB PO SCH (08:05)
[2017-09-16] MEDS: ASPIRIN 81 MG PO SCH (08:05)
[2017-09-16] MEDS: METOLAZONE 5 MG TAB PO SCH (08:06)
[2017-09-16] MEDS: FUROSEMIDE 80 MG TAB PO SCH ×2 (08:06→16:18)
[2017-09-16] MEDS: LOSARTAN 50 MG TAB PO SCH (08:06)
[2017-09-16] MEDS: AMMONIUM LACTATE 12% LOTION 225 GM BTL TOPICAL SCH ×2 (08:07→20:56)
[2017-09-16] MEDS ORDERED: HYDROCHLOROTHIAZIDE 25 MG TAB PO SCH (11:30)
[2017-09-16 12:00] LABS: Glucose,Whole Blood 200 mg/dL (75-99)
--- NOTE | 2017-09-16 12:10 | P.PN ---
Subjective Progress Note Date: 09/16/17 This is a 72-year-old gentleman with known history of ischemic cardiomyopathy, prior AICD implantation, hypertension, diabetes, hyperlipidemia, presented to the hospital with symptoms of progressively worsening shortness of breath. He was diuresed on IV Lasix. His weight today is down 1 kg. Patient was switched over to oral diuretics yesterday. CBC today is normal. Sodium 133, potassium 5.2, BUN 31, creatinine 0.9. C. diff is negative. Patient has been having episodes of diarrhea and nausea. We will discontinue the Aldactone today secondary to increased potassium levels. We will start the patient on hydrochlorothiazide daily, and decreased the metolazone to every other day. Objective - Vital Signs Vital signs: Vital Signs Temp 98.4 F 09/16/17 08:00 Pulse 84 09/16/17 08:00 Resp 18 09/16/17 08:00 BP 96/56 09/16/17 08:00 Pulse Ox 96 09/16/17 08:00 Intake & Output 09/15/17 09/16/17 09/16/17 18:59 06:59 18:59 Intake Total 1285.833 197 480 Output Total 1750 1050 Balance -464.167 -853 480 Weight 112.4 kg 111.3 kg Intake: IV 80 197 0.9 30 Furosemide 250 mg In 80 Sodium Chloride 0.9% 225 ml @ 10 MG/HR 10 mls/hr IVP .Q24H [facility] Rx#: [id number] Vancomycin 2,000 mg In 167 Sodium Chloride 0.9% 500 ml @ 167 mls/hr IVPB Q16H [facility] Rx#:[id number] Intake, IV Titration 245.833 Amount Furosemide 250 mg In 245.833 Sodium Chloride 0.9% 225 ml @ 10 MG/HR 10 mls/hr IVP .Q24H [facility] Rx#: [id number] Oral 960 480 Output: Urine 1750 1050 Other: Voiding Method Toilet Urinal # Voids 1 # Bowel Movements 1 - Exam PHYSICAL EXAMINATION: HEENT: Head is atraumatic, normocephalic. Pupils equal, round. Neck is supple. There is elevated jugular venous pressure. HEART EXAMINATION: Heart S1, S2 normal. No murmur or gallop heard. CHEST EXAMINATION: Lungs are clear with fine rales to bilateral bases. ABDOMEN: Soft, nontender. Bowel sounds are heard. No organomegaly noted. EXTREMITIES: 2+ peripheral pulses with 1-2+ evidence of peripheral edema and no calf tenderness noted. NEUROLOGIC patient is awake, alert and oriented -3. . - Labs CBC & Chem 7: 09/16/17 06:20 09/16/17 06:20 Labs: Abnormal Lab Results - Last 24 Hours (Table) 09/15/17 09/15/17 09/16/17 Range/Units 16:25 21:28 06:19 Lymphocytes # (1.0-4.8) k/uL Sodium (137-145) mmol/L Potassium (3.5-5.1) mmol/L Chloride (98-107) mmol/L BUN (9-20) mg/dL Glucose (74-99) mg/dL POC Glucose (mg/dL) 151 H 186 H 276 H (75-99) mg/dL 09/16/17 09/16/17 Range/Units 06:20 06:20 Lymphocytes # 0.1 L (1.0-4.8) k/uL Sodium 133 L (137-145) mmol/L Potassium 5.2 H (3.5-5.1) mmol/L Chloride 94 L (98-107) mmol/L BUN 31 H (9-20) mg/dL Glucose 249 H (74-99) mg/dL POC Glucose (mg/dL) (75-99) mg/dL Assessment and Plan Plan: Assessment and plan #1 systolic congestive heart failure acute on chronic #2 ischemic cardio myopathy with prior AICD implant #3 coronary artery disease with prior multivessel stenting #4 diabetes #5 hypertension Plan Because of the patient's elevated potassium level, we will discontinue the Aldactone today. We will add hydrochlorothiazide to his medication regime and decrease metolazone to every other day. Check lytes BUN and creatinine in the morning. Plan for possible discharge home in the next 24-48 hours if stable. DNP note has been reviewed, I agree with a documented findings and plan of care. Patient was seen and examined.
[2017-09-16] MEDS: ONDANSETRON 4 MG/2 ML VIAL IVP PRN ×2 (13:36→22:24)
[2017-09-16] MEDS: DIPHENOX-ATROP 2.5-0.025 MG 1 EACH TAB PO PRN ×3 (13:36→21:04)
--- NOTE | 2017-09-16 16:39 | P.PN ---
Progress Note - Text Progress Note Date: 09/16/17 Presenting complaint: Short of breath Interval history: Patient admitted with CHF exacerbation. Was on a Lasix drip now on by mouth Lasix. Patient had a good urine output close to 5-1/2 L. Today-edema intermittently gone down. Had multiple loose stools earlier. Feeling weak and tired. Didn't feel like eating much. No abdominal pain. No fever. Stool was sent of that came back negative for C. diff. Review of systems: Was done for constitutional, cardiovascular, GI, pulmonary. relevant finding as above Current medications include by mouth Lasix, IV vancomycin On examination: VITAL SIGNS: 98.4, 84, 18, 96/56, 96% room air GENERAL APPEARANCE: Sitting up in a chair. , Tired appearing HEENT: Normal external appearance of nose and ear. Oral cavity normal EYES: Pupils equal. Conjunctiva normal. NECK: JVD unable to assess. Mass not palpable. RESPIRATORY: Respiratory effort increased. Lungs decreased breath sounds. CARDIOVASCULAR: First and second sounds normal. Edema decreased. ABDOMEN: Soft. Liver and spleen not palpable. No tenderness. No mass palpable. PSYCHIATRY: Alert and oriented x3. Mood and affect normal. RIGHT hand: Third finger, In a dressing Investigations: White count 8, hemoglobin 13.2, potassium 5.2, BUN 31, creatinine 0.9 to C. diff-negative Assessment: -Acute on chronic congestive heart failure exacerbation from systolic dysfunction EF less than 20% from underlying coronary artery disease, improving -Coronary artery disease with prior history of coronary artery bypass -Diabetes mellitus type 2 on oral hypoglycemic, causing peripheral neuropathy -Essential hypertension -Hyperlipidemia -Peripheral arterial disease -Obesity BMI more than 35.9 -Right hand third finger infection, from MRSA -Acute diarrhea, likely functional, negative for C. diff -Hypotension acute as a combination of diarrhea and diuresis Plan: We'll hold off patient's morning dose of Cozaar. Encourage oral intake. Patient was started on Lomotil. Discussed with the patient taken easy diet. Repeat electrolytes in the morning.
[2017-09-16 16:48] LABS: Glucose,Whole Blood 157 mg/dL (75-99)
[2017-09-16 20:33] LABS: Glucose,Whole Blood 146 mg/dL (75-99)
[2017-09-16] MEDS: METOPROLOL TARTRATE 12.5 MG TAB PO SCH (20:52)
--- NOTE | 2017-09-16 21:57 | P.PN ---
Subjective Progress Note Date: 09/16/17 Principal diagnosis: Progressive shortness of breath This is a 72-year-old male patient who [facility] under the care of Dr. Baker in the past for a right heel wound that is subsequently healed. Patient gives history that earlier this month he had pain and swelling to his right hand. He went to his primary care physician and was given a prescription for Bactrim. He went back for recheck and he was sent into [facility] emergency center for evaluation where he was subsequently transferred to [facility] for treatment of tenosynovitis. Patient states he underwent 2 surgeries and he was discharged on September 04. He initially stayed at his son's home and [place] and return home to [place] on Friday where he lives with his . They've residential care in place. Patient was to receive vancomycin as an outpatient but he missed appointmentsbecause he could not walk and because he could not get a ride. The physician that is managing his care is out of [place] and he is receiving vancomycin daily at Dr. Richards/[facility] office for MRSA infection in the right hand. Patient states local wound care is to soak the hand in soapy water and then apply Vaseline gauze daily. He states his hand is sore but does not seem to be any worse. The swelling to his hand is significantly less than when he initially sought treatment. Patient presented to [facility] emergency center on this visit due to swelling and weight gain of 40 pounds over the past 1 week along with shortness of breath , orthopnea. He denies any fever, chills, cough, nasal congestion or drainage. He was placed on IV Lasix and admitted to the selective care unit where he is seen by cardiology and started on a Lasix drip. 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 His children live in [facility] and are not able to assist. He states that he lost strength and muscle while he was in the hospital recently. Lower extremity edema is also making it more difficult for him to ambulate. 09/14/2017 with the lasix drip has had a marked improvement of breathing and edema, he has noticed that his hand edema is also even improved. Making the hand more functional. Hand pain is improved. Denies other new acute symptoms. 09/15/2017 patient relates to feeling improved, less short of breath, up and ambulating in room and has little discomfort in right hand. Denies chills or rigors does still fell weak but improved. 09/16/2017 patient improved and being readied for discharge to home, developed some diarrhea and nausea and held for today, stool for cdiff was sent to lab and is negative, patient feeling better tonight. Objective - Vital Signs Vital signs: Vital Signs Temp 99.6 F 09/16/17 19:24 Pulse 89 09/16/17 19:24 Resp 16 09/16/17 19:24 BP 113/56 09/16/17 19:24 Pulse Ox 96 09/16/17 19:24 Intake & Output 09/16/17 09/16/17 09/17/17 06:59 18:59 06:59 Intake Total 197 1200 10 Output Total 1050 200 Balance -853 1000 10 Weight 111.3 kg Intake: IV 197 10 0.9 30 10 Vancomycin 2,000 mg In 167 Sodium Chloride 0.9% 500 ml @ 167 mls/hr IVPB Q16H [facility] Rx#:[id number] Oral 1200 Output: Urine 1050 200 Other: Voiding Method Toilet Toilet Urinal Urinal # Voids 1 # Bowel Movements 1 5 - Exam Constitutional General appearance: Feeling considerably better, with his diuresis is less short of breath is able to get to the restroom much more readily. - EENT Eyes: no abnormal pupil, anicteric sclerae, no edentulous, PERRLA, no scleral icterus - Respiratory Respiratory: Improved air entry bilaterally, few crackles at the bases only. Wheezes are noted. - Cardiovascular Heart sounds: normal: S1, S2 - Gastrointestinal General gastrointestinal: no absent bowel sounds, no decreased bowel sounds, no distended, normal bowel sounds, no organomegaly, no tenderness - Integumentary Wound to the distal fifth metatarsal, palmar side with wound to the proximal phalanx, edema and mild erythema, white tissue along wound edges. On the dorsal surface there is a wound to the distal phalanx without drainage along with peeling skin over most of the finger, dorsal side. No redness into the plantar surface, wrist or arm. Decreased range of motion to the fourth digit. Capillary refill immediate. The swelling to his hand is further improved peeling skin is removed erythema improved The extensive lower extremity edema is much improved. Integumentary: cellulitis, no cyanotic - Neurologic Neurologic: CNII-XII intact - Musculoskeletal Musculoskeletal: generalized weakness - Labs CBC & Chem 7: 09/16/17 06:20 09/16/17 06:20 Labs: Abnormal Lab Results - Last 24 Hours (Table) 09/16/17 09/16/17 09/16/17 Range/Units 06:19 06:20 06:20 Lymphocytes # 0.1 L (1.0-4.8) k/uL Sodium 133 L (137-145) mmol/L Potassium 5.2 H (3.5-5.1) mmol/L Chloride 94 L (98-107) mmol/L BUN 31 H (9-20) mg/dL Glucose 249 H (74-99) mg/dL POC Glucose (mg/dL) 276 H (75-99) mg/dL 09/16/17 09/16/17 09/16/17 Range/Units 11:58 16:44 20:30 Lymphocytes # (1.0-4.8) k/uL Sodium (137-145) mmol/L Potassium (3.5-5.1) mmol/L Chloride (98-107) mmol/L BUN (9-20) mg/dL Glucose (74-99) mg/dL POC Glucose (mg/dL) 200 H 157 H 146 H (75-99) mg/dL Laboratory Results WBC 8.0 k/uL (3.8-10.6) 09/16/17 06:20 RBC 4.54 m/uL (4.30-5.90) 09/16/17 06:20 Hgb 13.2 gm/dL (13.0-17.5) 09/16/17 06:20 Hct 40.4 % (39.0-53.0) 09/16/17 06:20 MCV 89.1 fL (80.0-100.0) 09/16/17 06:20 MCH 29.1 pg (25.0-35.0) 09/16/17 06:20 MCHC 32.7 g/dL (31.0-37.0) 09/16/17 06:20 RDW 14.1 % (11.5-15.5) 09/16/17 06:20 Plt Count 162 k/uL (150-450) 09/16/17 06:20 Neutrophils % 91 % 09/16/17 06:20 Lymphocytes % 1 % 09/16/17 06:20 Monocytes % 5 % 09/16/17 06:20 Eosinophils % 2 % 09/16/17 06:20 Basophils % 0 % 09/16/17 06:20 Neutrophils # 7.3 k/uL (1.3-7.7) 09/16/17 06:20 Lymphocytes # 0.1 k/uL (1.0-4.8) L 09/16/17 06:20 Monocytes # 0.4 k/uL (0-1.0) 09/16/17 06:20 Eosinophils # 0.1 k/uL (0-0.7) 09/16/17 06:20 Basophils # 0.0 k/uL (0-0.2) 09/16/17 06:20 PT 11.3 sec (9.0-12.0) 09/11/17 12:14 INR 1.2 (<1.2) H 09/11/17 12:14 APTT 32.5 sec (22.0-30.0) H 09/11/17 12:14 Sodium 133 mmol/L (137-145) L 09/16/17 06:20 Potassium 5.2 mmol/L (3.5-5.1) H 09/16/17 06:20 Chloride 94 mmol/L (98-107) L 09/16/17 06:20 Carbon Dioxide 28 mmol/L (22-30) 09/16/17 06:20 Anion Gap 11 mmol/L 09/16/17 06:20 BUN 31 mg/dL (9-20) H 09/16/17 06:20 Creatinine 0.92 mg/dL (0.66-1.25) 09/16/17 06:20 Est GFR (MDRD) Af Amer >60 (>60 ml/min/1.73 sqM) 09/16/17 06:20 Est GFR (MDRD) Non-Af >60 (>60 ml/min/1.73 sqM) 09/16/17 06:20 Glucose 249 mg/dL (74-99) H 09/16/17 06:20 POC Glucose (mg/dL) 146 mg/dL (75-99) H 09/16/17 20:30 POC Glu [employer] Conditioning Unit Tester ID Yady Colmenares 09/16/17 20:[address] Glu mg/dL 249 09/11/17 12:16 Hemoglobin A1c 10.3 % (4.0-6.0) H 09/11/17 12:16 Calcium 9.3 mg/dL (8.4-10.2) 09/16/17 06:20 Magnesium 1.8 mg/dL (1.6-2.3) 09/14/17 05:17 Total Bilirubin 0.8 mg/dL (0.2-1.3) 09/11/17 12:14 AST 15 U/L (17-59) L 09/11/17 12:14 ALT 30 U/L (21-72) 09/11/17 12:14 Alkaline Phosphatase 97 U/L (38-126) 09/11/17 12:14 Total Creatine Kinase 66 U/L (55-170) 09/11/17 12:14 CK-MB (CK-2) 1.9 ng/mL (0.0-2.4) 09/11/17 12:14 CK-MB (CK-2) Rel Index 2.9 09/11/17 12:14 Troponin I 0.015 ng/mL (0.000-0.034) 09/11/17 12:14 NT-Pro-B Natriuret Pep 2060 pg/mL 09/14/17 05:17 Total Protein 6.1 g/dL (6.3-8.2) L 09/11/17 12:14 Albumin 3.3 g/dL (3.5-5.0) L 09/11/17 12:14 Vancomycin Trough 16.4 ug/mL 09/13/17 15:01 Random Vancomycin 6.9 ug/mL 09/11/17 12:14 C. difficile (EIA) Intrp Negative (Negative) 09/16/17 09:40 Assessment and Plan (1) CHF (congestive heart failure) Current Visit: Yes Status: Acute Code(s): I50.9 - HEART FAILURE, UNSPECIFIED SNOMED Code(s): 55356450 (2) Congestive heart failure with left ventricular systolic dysfunction Current Visit: No Status: Acute Code(s): I50.20 - UNSPECIFIED SYSTOLIC ( CONGESTIVE) HEART FAILURE SNOMED Code(s): 774720840 (3) HTN (hypertension) Current Visit: No Status: Acute Code(s): I10 - ESSENTIAL (PRIMARY) HYPERTENSION SNOMED Code(s): 41145966 (4) MRSA (methicillin resistant staph aureus) culture positive Current Visit: No Status: Acute Code(s): Z22.322 - CARRIER OR SUSPECTED CARRIER OF METHICILLIN RESIS STAPH SNOMED Code(s): 330118831 (5) Infection of right hand Narrative/Plan: As noted this 72-year-old gentleman is currently receiving intravenous antibiotic therapy in the outpatient setting at the office as a completion course of therapy after his hand surgery at an outside hospital. MRSA was isolated however he is a great difficulty with compliance to his visits. He has had 1 infusion this week. At that time he was visibly short of breath and was suggested to go to the emergency center which he refused. However within a day he became more short of breath and did present to the emergency center and subsequently has been admitted. Found to have CHF as a complication of his ischemic cardiomyopathy. He is in place and an insulin drip with improvement of his profound shortness of breath and lower extremity edema. Patient does have the surgical wound to the right hand third finger performed at the outside hospital. MRSA was found at that site. He will continue with his vancomycin therapy. Local wound care with a nonstick dressing will be utilized. Elevate the hand as much as he can for comfort and to reduce edema. The patient would do well to have physical therapy evaluation during his stay determine if he is capable of returning to the home setting or require a course of rehab And 09/14/2017 the patient is showing some marked improvement. With his Lasix intravenous infusion he's had an extensive diuresis which has been quite helpful. Zaroxolyn has been added to further help with diuresis and systolic congestive heart failure. Patient feels considerably better today. The right hand MRSA infection is improving. The swelling to the hands improved as his diuresis has occurred and antibiotic therapy has occured. Patient likely needs another one week of antibiotic therapy for that complex MRSA infection of the hand. 09/15/2017 has further improvement,diuresis has been effective and patient is improved and is potential plan for discharge tomorrow. Will arrange to complete the vancomycin at the office till 09/20/2017 09/16/2017 will receive Vanco in am then should be ready for discharge if no further problems arise. Office for Vanco till 09/20 2017 and follow up with cardiology with the heart failure. Diarrhea resolving. Current Visit: Yes Status: Acute Code(s): L08.9 - LOCAL INFECTION OF THE SKIN AND SUBCUTANEOUS TISSUE, UNSP SNOMED Code(s): 295813773
[2017-09-16] MEDS: SODIUM CHLORIDE 0.9% 500 ML IV SCH (23:37)
[2017-09-17 05:51] LABS: Glucose,Whole Blood 166 mg/dL (75-99)
[2017-09-17 05:58] LABS: Basophils % (A) 0 %; Eosinophils # (A) 0.1 k/uL (0-0.7); Eosinophils % (A) 2 %; HCT 35.5 % (39.0-53.0); HGB 11.8 gm/dL (13.0-17.5); Lymphocytes # (A) 0.4 k/uL (1.0-4.8); Lymphocytes % (A) 10 %; MCHC 33.2 g/dL (31.0-37.0); MCV 87.4 fL (80.0-100.0); Mean Platelet Volume 8.8; Monocytes # (A) 0.3 k/uL (0-1.0); Monocytes % (A) 10 %; Neutrophils # (A) 2.6 k/uL (1.3-7.7); Neutrophils % (A) 75 %; Platelet Count 133 k/uL (150-450); RBC 4.06 m/uL (4.30-5.90); RDW 14.4 % (11.5-15.5); WBC 3.5 k/uL (3.8-10.6)
[2017-09-17 06:02] LABS: Anion Gap 9 mmol/L; Blood Urea Nitrogen 36 mg/dL (9-20); Calcium 8.7 mg/dL (8.4-10.2); Carbon Dioxide 30 mmol/L (22-30); Chloride 94 mmol/L (98-107); Glucose 155 mg/dL (74-99); Potassium 3.9 mmol/L (3.5-5.1); Sodium 133 mmol/L (137-145)
[2017-09-17] MEDS: INSULIN ASPART 100 UNIT/ML 1 ML 10 ML VIAL SQ SCH ×2 (06:23→12:06)
[2017-09-17] MEDS: POTASSIUM CHLORIDE ER 20 MEQ TAB.ER PO SCH (07:50)
[2017-09-17] MEDS: ATORVASTATIN 80 MG TAB PO SCH (07:50)
[2017-09-17] MEDS: metFORMIN 500 MG TAB PO SCH (07:50)
[2017-09-17] MEDS: METOPROLOL TARTRATE 12.5 MG TAB PO SCH (07:50)
[2017-09-17] MEDS: ASPIRIN 81 MG PO SCH (07:50)
[2017-09-17] MEDS: AMMONIUM LACTATE 12% LOTION 225 GM BTL TOPICAL SCH (07:50)
[2017-09-17] MEDS: FUROSEMIDE 80 MG TAB PO SCH (07:50)
[2017-09-17] MEDS: SODIUM CHLORIDE 0.9% 500 ML IV SCH (07:51)
[2017-09-17 07:56] VITALS: RESP 18
[2017-09-17] MEDS ORDERED: METOLAZONE 5 MG TAB PO SCH (08:30)
[2017-09-17] MEDS ORDERED: LOSARTAN 25 MG TAB PO SCH (09:00)
[2017-09-17] MEDS ORDERED: METOLAZONE 2.5 MG TAB PO SCH (10:45)
[2017-09-17 11:27] VITALS: BP 85/50; PULSE 69; TEMP 97.8
[2017-09-17 12:02] LABS: Glucose,Whole Blood 183 mg/dL (75-99)
[2017-09-17] MEDS ORDERED: FUROSEMIDE 40 MG TAB PO SCH (15:00)
--- NOTE | 2017-09-17 15:24 | PN ---
PROGRESS NOTE This gentleman has ischemic cardiomyopathy. He lost substantial weight on a combination of Lasix and metolazone. He is slightly hypotensive, but asymptomatic and he had some diarrhea yesterday. Vitals are stable. He is overall doing well. I am recommending that he can be discharged on 80 mg Lasix in the morning and 40 in the evening but to hold off the Lasix today. He will follow up with Dr. Boyle in about 1 to 2 weeks after discharge. His vital signs are stable, blood pressure is 96/60, S1-S2 heard normally. Short systolic murmur is audible. Lungs reveal improved air entry. Abdomen is soft. Lower extremities reveal diminished pulses, trace edema, which is a significant improvement. MMODL / IJN: [id number] /
--- NOTE | 2017-09-17 22:02 | DS ---
DISCHARGE SUMMARY DATE OF ADMISSION: September 11, 2017. DATE OF DISCHARGE: September 17, 2017. FINAL DIAGNOSES: 1. Acute on chronic congestive heart failure exacerbation from systolic dysfunction, ejection fraction less than 20% from underlying coronary artery disease. 2. Coronary artery disease, prior history of coronary artery bypass. 3. Diabetes mellitus type 2 on oral hypoglycemic causing peripheral neuropathy. 4. Essential hypertension. 5. Hyperlipidemia. 6. Peripheral artery disease. 7. Obesity; BMI more than 35.9. 8. Right hand 3rd finger infection from MRSA present before admission. 9. Acute diarrhea functional negative for C. diff. 10.Hypotension from combination of diarrhea and dialysis. CONSULTATION: Dr. Richards from Infectious Disease and Dr. Iman Lin from cardiology. HOSPITAL COURSE: This patient has CHF exacerbation, was put on Lasix drip. Switched over to Lasix. The patient's blood pressure normally runs around 90-100 systolic. The patient's blood pressure is up to 85/50 by the time of discharge. Medications adjusted earlier this morning by Cardiology. The patient is very keen to go home. Patient getting IV vancomycin being coordinated by Dr. Richards. EXAMINATION: Lungs fair entry. Decreased edema. Psych AO x3. The patient's BUN 36, creatinine 1.02. The patient's right hand 3rd finger in a dressing. HOME GO MEDICATIONS: 1. [place] 7.5 one tab q.6h p.r.n. 2. Aspirin 81 mg p.o. daily. 3. Lipitor 80 mg p.o. daily. 4. Lasix 80 mg in the morning. 5. Lopressor 12.5 p.o. b.i.d. 6. Glucophage 1000 mg b.i.d. 7. Vancomycin 750 mg IV piggyback Q 24 for 4 more days. 8. Lac-Hydrin 12% topical b.i.d. 9. Lomotil 1 tab q.i.d. p.r.n. 10.Lasix 40 mg at 3:00 pm. 11.Cozaar 25 mg at noon to be held for a blood pressure less than 100 systolic. 12.Zaroxolyn 2.5 mg Friday, Friday and Friday. 13.Potassium 20 mEq p.o. b.i.d. Follow up with Dr. Brown on 09/25/17, Dr. Boyle on September 29, 2017, Dr. Alex Richards on September 28, 2017, CBC BMP in 1 week. The patient is going to follow up with [facility], telephone number for his IV antibiotics and dressing to continue. Prognosis is guarded. Discussion and discharge planning more than 35 minutes. JOSEPH / YAKELIN: [id number] /
[2017-09-18] MEDS ORDERED: FUROSEMIDE 80 MG TAB PO SCH (09:00)
[2017-09-18] MEDS ORDERED: METOLAZONE 2.5 MG TAB PO SCH (09:00)
== END 2017-09-17 14:48 | disposition home health service (06) | DRG 293 ==
LOC: EC 11:06 → 6SEL 14:35
PROVIDERS: ADMIT Hospitalist; ATTEND Hospitalist
DX: I11.0 Hypertensive heart disease with heart failure (principal); E11.42 Type 2 diabetes mellitus with diabetic polyneuropathy; E11.51 Type 2 diabetes mellitus with diabetic peripheral angiopathy without gangrene; B95.62 Methicillin resistant Staphylococcus aureus infection as the cause of diseases classified elsewhere; E66.9 Obesity, unspecified; E78.5 Hyperlipidemia, unspecified; F17.200 Nicotine dependence, unspecified, uncomplicated; I25.10 Atherosclerotic heart disease of native coronary artery without angina pectoris; I25.2 Old myocardial infarction; I25.5 Ischemic cardiomyopathy; I50.23 Acute on chronic systolic (congestive) heart failure; L08.9 Local infection of the skin and subcutaneous tissue, unspecified; M65.9 Synovitis and tenosynovitis, unspecified; Z79.82 Long term (current) use of aspirin; Z79.84 Long term (current) use of oral hypoglycemic drugs; Z79.899 Other long term (current) drug therapy; Z95.1 Presence of aortocoronary bypass graft; Z95.5 Presence of coronary angioplasty implant and graft; Z95.810 Presence of automatic (implantable) cardiac defibrillator; R19.7 Diarrhea, unspecified; Z88.0 Allergy status to penicillin; Z79.2 Long term (current) use of antibiotics
CPT/HCPCS: 36415; 71046; 80048; 80053; 80202; 82550; 82553; 83036; 83735; 83880; 84484; 85025; 85610; 85730; 87324; 93005; 94760; 96374; 99285

== ENCOUNTER 2018-01-30 14:22 | Inpatient (IN) | payer MEDICARE, OTHER ==
--- NOTE | 2018-01-30 14:56 | ED ---
General Adult HPI <RonReagan hammond - Last Filed: 01/30/18 16:38> - General Source: patient, RN notes reviewed Mode of arrival: wheelchair Limitations: no limitations <Georges Kang - Last Filed: 01/30/18 16:42> - General Chief complaint: Extremity Injury, Lower Stated complaint: LE Edema Time Seen by Provider: 01/30/18 14:40 - History of Present Illness Initial comments: Patient 73-year-old male with significant past medical history for CHF, diabetes , hypertension, presented to the emergency room today with a chief complaint of leg swelling to his feet and lower legs bilaterally. Patient does admit that over the last several weeks she's noticed since been slowly increasing. He states last few days it's been getting worse and more painful. States it hurts when he walks. He states he can feel the swelling. He does admit that he's tried some pain medicine at home with some relief. He does admit that he is gained 14 pounds in the last week. Patient states he had similar symptoms back in October this past year and had to be admitted. Patient does not that he's been taking his Lasix 80 mg daily and also taking a half tablet over the last few days because symptoms seem to be getting worse. Patient denies any recent fever, chills, shortness of breath, chest pain, back pain, abdominal pain, nausea or vomiting, headaches or visual changes, or any other complaints. ( Georges Kang) - Related Data Home Medications Medication Instructions Recorded Confirmed HYDROcodone/APAP 7.5-325MG [[place] 1 tab PO Q6HR PRN 11/07/15 01/30/18 7.5-325] Aspirin [Adult Low Dose Aspirin EC] 81 mg PO DAILY 04/10/16 01/30/18 Atorvastatin [Lipitor] 80 mg PO DAILY 08/06/16 01/30/18 Furosemide [Lasix] 80 mg PO DAILY 08/28/17 01/30/18 Metoprolol Tartrate [Lopressor] 12.5 mg PO DIRECTED 08/28/17 01/30/18 metFORMIN HCL [Glucophage] 1,000 mg PO BID 08/28/17 01/30/18 Potassium Chloride ER [K-Dur 20] 20 meq PO DAILY 01/30/18 01/30/18 Previous Rx's Medication Instructions Recorded Ammonium Lactate Lotion 1 applic TOPICAL BID applic 09/17/17 [Lac-Hydrin 12% Lotion] Furosemide [Lasix] 40 mg PO DAILY@1500 tab 09/17/17 Losartan [Cozaar] 25 mg PO DAILY #30 tab 09/17/17 Metolazone [Zaroxolyn] 2.5 mg PO MoWeFr@0900 #30 tab 09/17/17 Allergies Allergy/AdvReac Type Severity Reaction Status Date / Time Penicillins Allergy Rash/Hives Verified 01/30/18 15:09 gabapentin [From Neurontin] AdvReac Nausea Verified 01/30/18 15:09 Review of Systems ROS Other: All systems not noted in ROS Statement are negative. <Reagan Guidry - Last Filed: 01/30/18 16:38> ROS Other: All systems not noted in ROS Statement are negative. <Georges Kang - Last Filed: 01/30/18 16:42> ROS Statement: Those systems with pertinent positive or pertinent negative responses have been documented in the HPI. Past Medical History Past Medical History: Chest Pain / Angina, Heart Failure, Diabetes Mellitus, Hyperlipidemia, Hypertension, Myocardial Infarction ([place]) Additional Past Medical History / Comment(s): past edema in legs ,2016 rt.foot( heel) wound, bilat leg and hand neuropathy(unable to take gabapentin), recently tx at [facility] for hand infection and had sx. Last Myocardial Infarction Date:: 2010 History of Any Multi-Drug Resistant Organisms: MRSA, VRE Date of last positivie culture/infection: 12/08/15 MDRO Source:: RIGHT FOOT MRSA AND VRE Past Surgical History: Cholecystectomy, Heart Catheterization With Stent, Hernia Repair Additional Past Surgical History / Comment(s): cervical fusion , left carpal tunnel release, cataract left eye, HEART STENT X2, 10-16-15 PTBA /RT LEG STENT, rt hand surgery Past Anesthesia/Blood Transfusion Reactions: Postoperative Nausea & Vomiting ( PONV) Additional Past Anesthesia/Blood Transfusion Reaction / Comment(s): .PT STATED AFTER HAND SX HAD DIFFICULTY URINATING AND PAIN MEDS CONSTIPATE HIM. Date of Last Stent Placement:: 12/2013 Type of Cardiac Device: AICD Device Placement Date:: 2014 Past Psychological History: No Psychological Hx Reported Smoking Status: Current every day smoker Past Alcohol Use History: Rare Past Drug Use History: None Reported - Past Family History Mother Additional Family Medical History / Comment(s): PT STATED MOM WAS HEALTHY BUT IN OLDER AGE GOT PNE- FROM COMPLICATIONS OF PNE. Father Family Medical History: Osteoarthritis (OA) Additional Family Medical History / Comment(s): ULCERS, HEART PROBLEMS HAD BYPASS,BACK SURGURY <Georges Kang - Last Filed: 01/30/18 16:42> General Exam <Reagan Guidry - Last Filed: 01/30/18 16:38> Limitations: no limitations <Georges Kang - Last Filed: 01/30/18 16:42> - General Exam Comments Initial Comments: General: The patient is awake and alert, in no distress, and does not appear acutely ill. Eye: Pupils are equal, round and reactive to light, extra-ocular movements are intact. No nystagmus. There is normal conjunctiva bilaterally. No signs of icterus. Ears, nose, mouth and throat: There are moist mucous membranes and no oral lesions. Neck: The neck is supple, there is no tenderness or JVD. Cardiovascular: There is a regular rate and rhythm. No murmur, rub or gallop is appreciated. Respiratory: Lungs are clear to auscultation, respirations are non-labored, breath sounds are equal. No wheezes, stridor, rales, or rhonchi. Musculoskeletal: Normal ROM, no tenderness. Strength 5/5. Sensation intact. Pulses equal bilaterally 2+. Pitting edema to his feet bilaterally 2+. Neurological: A&O x 3. CN II-XII intact, There are no obvious motor or sensory deficits. Coordination appears grossly intact. Speech is normal. Skin: Skin is warm and dry and no rashes or lesions are noted. Psychiatric: Cooperative, appropriate mood & affect, normal judgment. (Georges Kang) Vital Signs 01/30/18 14:29 Temperature 98.4 F Pulse Rate 71 Respiratory 18 Rate Blood Pressure 106/51 O2 Sat by Pulse 99 Oximetry Medical Decision Making - Lab Data Result diagrams: 01/30/18 15:13 01/30/18 15:13 <Reagan Guidry - Last Filed: 01/30/18 16:38> - Lab Data Result diagrams: 01/30/18 15:13 01/30/18 15:13 <Georges Kang - Last Filed: 01/30/18 16:42> - Medical Decision Making Provider Attestation PA attestation: I personally saw and examined the patient. I have reviewed and agree with the PA's findings, including all diagnostic interpretations and treatment plans as written unless ohterwise stated. I was present for lopez portions of any procedures performed and the inclusive time noted for any critical care statement. (Reagan Guidry) Patient's labs been reviewed does show BNP 1800. Patient's chest x-ray does show some evidence for CHF. Patient will be started on Lasix here in the emergency room to the hospital with consult to cardiology. (Georges Kang) - Lab Data Lab Results 01/30/18 01/30/18 01/30/18 Range/Units 15:13 15:13 15:13 WBC 6.5 (3.8-10.6) k/uL RBC 4.30 (4.30-5.90) m/uL Hgb 13.4 (13.0-17.5) gm/dL Hct 39.1 (39.0-53.0) % MCV 90.9 (80.0-100.0) fL MCH 31.2 (25.0-35.0) pg MCHC 34.3 (31.0-37.0) g/dL RDW 14.9 (11.5-15.5) % Plt Count 166 (150-450) k/uL Neutrophils % 69 % Lymphocytes % 20 % Monocytes % 6 % Eosinophils % 4 % Basophils % 1 % Neutrophils # 4.5 (1.3-7.7) k/uL Lymphocytes # 1.3 (1.0-4.8) k/uL Monocytes # 0.4 (0-1.0) k/uL Eosinophils # 0.3 (0-0.7) k/uL Basophils # 0.0 (0-0.2) k/uL PT (9.0-12.0) sec INR (<1.2) APTT (22.0-30.0) sec Sodium 139 (137-145) mmol/L Potassium 4.3 (3.5-5.1) mmol/L Chloride 106 (98-107) mmol/L Carbon Dioxide 23 (22-30) mmol/L Anion Gap 10 mmol/L BUN 13 (9-20) mg/dL Creatinine 0.94 (0.66-1.25) mg/dL Est GFR (CKD-EPI)AfAm >90 (>60 ml/min/1.73 sqM) Est GFR (CKD-EPI)NonAf 80 (>60 ml/min/1.73 sqM) Glucose 295 H (74-99) mg/dL Calcium 9.2 (8.4-10.2) mg/dL Total Bilirubin 1.6 H (0.2-1.3) mg/dL AST 23 (17-59) U/L ALT 29 (21-72) U/L Alkaline Phosphatase 88 (38-126) U/L NT-Pro-B Natriuret Pep 1800 pg/mL Total Protein 6.8 (6.3-8.2) g/dL Albumin 4.1 (3.5-5.0) g/dL 01/30/ Range/Units 15:13 WBC (3.8-10.6) k/uL RBC (4.30-5.90) m/uL Hgb (13.0-17.5) gm/dL Hct (39.0-53.0) % MCV (80.0-100.0) fL MCH (25.0-35.0) pg MCHC (31.0-37.0) g/dL RDW (11.5-15.5) % Plt Count (150-450) k/uL Neutrophils % % Lymphocytes % % Monocytes % % Eosinophils % % Basophils % % Neutrophils # (1.3-7.7) k/uL Lymphocytes # (1.0-4.8) k/uL Monocytes # (0-1.0) k/uL Eosinophils # (0-0.7) k/uL Basophils # (0-0.2) k/uL PT 10.4 (9.0-12.0) sec INR 1.1 (<1.2) APTT 23.8 (22.0-30.0) sec Sodium (137-145) mmol/L Potassium (3.5-5.1) mmol/L Chloride (98-107) mmol/L Carbon Dioxide (22-30) mmol/L Anion Gap mmol/L BUN (9-20) mg/dL Creatinine (0.66-1.25) mg/dL Est GFR (CKD-EPI)AfAm (>60 ml/min/1.73 sqM) Est GFR (CKD-EPI)NonAf (>60 ml/min/1.73 sqM) Glucose (74-99) mg/dL Calcium (8.4-10.2) mg/dL Total Bilirubin (0.2-1.3) mg/dL AST (17-59) U/L ALT (21-72) U/L Alkaline Phosphatase (38-126) U/L NT-Pro-B Natriuret Pep pg/mL Total Protein (6.3-8.2) g/dL Albumin (3.5-5.0) g/dL Disposition <Reagan Guidry - Last Filed: 01/30/18 16:38> Is patient prescribed a controlled substance at d/c from ED?: No Time of Disposition: 16:34 <Georges Kang - Last Filed: 01/30/18 16:42> Clinical Impression: CHF exacerbation, Leg edema Disposition: ADMITTED IP TO THIS HOSP Condition: Stable Referrals: Grey Brown DO [Primary Care Provider] - 1-2 days
[2018-01-30 15:24] LABS: Basophils % (A) 1 %; Eosinophils # (A) 0.3 k/uL (0-0.7); Eosinophils % (A) 4 %; HCT 39.1 % (39.0-53.0); HGB 13.4 gm/dL (13.0-17.5); Lymphocytes # (A) 1.3 k/uL (1.0-4.8); Lymphocytes % (A) 20 %; MCH 31.2 pg (25.0-35.0); MCHC 34.3 g/dL (31.0-37.0); MCV 90.9 fL (80.0-100.0); Mean Platelet Volume 8.3; Monocytes # (A) 0.4 k/uL (0-1.0); Monocytes % (A) 6 %; Neutrophils # (A) 4.5 k/uL (1.3-7.7); Neutrophils % (A) 69 %; Platelet Count 166 k/uL (150-450); RDW 14.9 % (11.5-15.5); WBC 6.5 k/uL (3.8-10.6)
[2018-01-30 15:34] LABS: ALT 29 U/L (21-72); AST 23 U/L (17-59); Albumin 4.1 g/dL (3.5-5.0); Alkaline Phosphatase 88 U/L (38-126); Anion Gap 10 mmol/L; Blood Urea Nitrogen 13 mg/dL (9-20); Calcium 9.2 mg/dL (8.4-10.2); Carbon Dioxide 23 mmol/L (22-30); Chloride 106 mmol/L (98-107); Glucose 295 mg/dL (74-99); INR 1.1 (<1.2); Partial Thromboplastin Time 23.8 sec (22.0-30.0); Potassium 4.3 mmol/L (3.5-5.1); Prothrombin Time 10.4 sec (9.0-12.0); Sodium 139 mmol/L (137-145); Total Bilirubin 1.6 mg/dL (0.2-1.3); Total Protein 6.8 g/dL (6.3-8.2)
--- NOTE | 2018-01-30 15:55 | XR ---
EXAMINATION TYPE: XR chest 2V DATE OF EXAM: 01/30/2018 COMPARISON: Prior chest 09/15/2017 HISTORY: Leg edema, history of hypertension and congestive heart failure TECHNIQUE: Frontal and lateral views of the chest are obtained on 3 images. FINDINGS: Intracardiac defibrillator is stable, heart size is unchanged. There is some improved visu alization of the left costophrenic angle. No pneumothorax or pleural effusion, postop change again no [place] in the cervical spine. Perihilar vascular indistinctness is suspected. Interstitium is. There are coronary calcifications. Prominent lung lines suggest underlying COPD. IMPRESSION: There is improvement in volume status, difficult to exclude early interstitial edema.
[2018-01-30] MEDS ORDERED: KETOROLAC 30 MG/ML 1 ML VIAL IVP STA (16:31)
[2018-01-30] MEDS ORDERED: FUROSEMIDE 10 MG/ML 10 ML VIAL IV STA (16:31)
[2018-01-30] MEDS ORDERED: ASPIRIN 81 MG PO STA (16:32)
[2018-01-30] MEDS ORDERED: NITROGLYCERIN OINT 1 INCH/GM PACKET TOPICAL STA (16:32)
[2018-01-30] MEDS ORDERED: SODIUM CHLORIDE 0.9% 1,000 ML IV ONE (16:39)
[2018-01-30] MEDS ORDERED: MORPHINE SULFATE 4 MG/ML SYRINGE IV PRN (16:39)
[2018-01-30] MEDS ORDERED: ACETAMINOPHEN TAB 325 MG TAB PO PRN (16:39)
[2018-01-30] MEDS ORDERED: HYDROcodone/APAP 5-325MG 1 EACH TAB PO PRN (16:39)
[2018-01-30] MEDS ORDERED: ONDANSETRON 4 MG/2 ML VIAL IVP PRN (16:39)
[2018-01-30] MEDS ORDERED: NALOXONE 0.4 MG/ML 1 ML VIAL IV PRN (16:39)
[2018-01-30] MEDS ORDERED: LORazepam 2 MG/ML INJ IV PRN (16:39)
[2018-01-30] MEDS ORDERED: HYDROcodone/APAP 7.5-325MG 1 EACH TAB PO PRN (16:43)
[2018-01-30 17:39] LABS: Glucose,Whole Blood 279 mg/dL (75-99)
[2018-01-30] MEDS: metFORMIN 500 MG TAB PO SCH (18:09)
[2018-01-30 20:05] LABS: Glucose,Whole Blood 220 mg/dL (75-99)
[2018-01-30] MEDS ORDERED: LACTULOSE 20 GM/30 ML CUP PO PRN (21:09)
[2018-01-30] MEDS ORDERED: MELATONIN 3 MG TABLET PO PRN (21:09)
[2018-01-30] MEDS ORDERED: MAGNESIUM HYDROXIDE 2,400 MG/10 ML CUP PO PRN (21:09)
[2018-01-30] MEDS: FUROSEMIDE 10 MG/ML 10 ML VIAL IV SCH (22:07)
[2018-01-30] MEDS: AMMONIUM LACTATE 12% LOTION 225 GM BTL TOPICAL SCH (22:07)
[2018-01-30] MEDS: POTASSIUM CHLORIDE ER 20 MEQ TAB.ER PO SCH (22:44)
[2018-01-31 07:32] LABS: Glucose,Whole Blood 190 mg/dL (75-99)
[2018-01-31 07:38] LABS: Basophils % (A) 0 %; Eosinophils # (A) 0.3 k/uL (0-0.7); Eosinophils % (A) 5 %; HCT 34.2 % (39.0-53.0); HGB 12.1 gm/dL (13.0-17.5); Lymphocytes # (A) 1.2 k/uL (1.0-4.8); Lymphocytes % (A) 22 %; MCH 31.7 pg (25.0-35.0); MCHC 35.3 g/dL (31.0-37.0); MCV 89.8 fL (80.0-100.0); Mean Platelet Volume 8.9; Monocytes # (A) 0.4 k/uL (0-1.0); Monocytes % (A) 7 %; Neutrophils # (A) 3.4 k/uL (1.3-7.7); Neutrophils % (A) 65 %; Platelet Count 124 k/uL (150-450); RBC 3.81 m/uL (4.30-5.90); WBC 5.2 k/uL (3.8-10.6)
[2018-01-31 08:01] LABS: Albumin 3.7 g/dL (3.5-5.0); Calcium 9.1 mg/dL (8.4-10.2); Potassium 4.1 mmol/L (3.5-5.1); Total Bilirubin 1.5 mg/dL (0.2-1.3); Total Protein 6.3 g/dL (6.3-8.2)
[2018-01-31] MEDS: FUROSEMIDE 10 MG/ML 10 ML VIAL IV SCH ×2 (08:55→21:17)
[2018-01-31] MEDS: LOSARTAN 25 MG TAB PO SCH (08:55)
[2018-01-31] MEDS: METOPROLOL TARTRATE 12.5 MG TAB PO SCH (08:55)
[2018-01-31] MEDS: ATORVASTATIN 80 MG TAB PO SCH (08:55)
[2018-01-31] MEDS: ASPIRIN 81 MG PO SCH (08:55)
[2018-01-31] MEDS: POTASSIUM CHLORIDE ER 20 MEQ TAB.ER PO SCH (08:55)
[2018-01-31] MEDS: metFORMIN 500 MG TAB PO SCH ×2 (08:55→16:31)
[2018-01-31] MEDS: AMMONIUM LACTATE 12% LOTION 225 GM BTL TOPICAL SCH ×2 (08:56→21:17)
[2018-01-31 11:21] LABS: Glucose,Whole Blood 297 mg/dL (75-99)
--- NOTE | 2018-01-31 11:31 | P.CRDCN ---
History of Present Illness Consult date: 01/31/18 Chief complaint: Bilateral lower extremities edema History of present illness: This is a pleasant 73-year-old gentleman who I see in the office as an outpatient with a past medical history significant for coronary artery disease, severe ischemic cardiomyopathy unknown an EF of less than 20%, this based on recent echocardiogram was performed in June 2017, status post AICD, as well as significant history of smoking presented to the hospital complaining of progressive bilateral lower extremities edema. The edema started about 2 weeks ago, around January, and has gotten progressed since then. The patient did gain about 10-12 pounds within the last 2 weeks. The patient denies having any shortness of breath. No exertional dyspnea, orthopnea, or PND. Denies having any chest pain or any chest discomfort. No dizziness or lightheadedness and no syncope. No cough or wheezing or sputum production. He stated that he was compliant with all of his medications but he was not compliant with his diet overall. He was on oral diuretics as an outpatient. The chest x-ray showed findings consistent with CHF. The BNP is not severe lead elevated and is only about 1200s. The CBC and BMP are within normal limits. The patient was admitted to the hospital and he was started on IV Lasix at 80 mg twice a day. He stated that the bilateral lower extremities edema has gotten better already. Past Medical History Past Medical History: Chest Pain / Angina, Heart Failure, Diabetes Mellitus, Hyperlipidemia, Hypertension, Myocardial Infarction (CT), Rheumatoid Arthritis ( RA) Additional Past Medical History / Comment(s): past edema in legs ,2016 rt.foot( heel) wound, bilat leg and hand neuropathy(unable to take gabapentin), recently tx at [facility] for rt hand infection and had sx. poor circulation Last Myocardial Infarction Date:: 2010 History of Any Multi-Drug Resistant Organisms: MRSA, VRE Date of last positivie culture/infection: 12/08/15 MDRO Source:: RIGHT FOOT MRSA AND VRE Past Surgical History: Appendectomy, Cholecystectomy, Heart Catheterization With Stent, Hernia Repair, Tonsillectomy Additional Past Surgical History / Comment(s): cervical fusion , left carpal tunnel release, cataract left eye, HEART STENT X2, 10-16-15 PTBA /RT LEG STENT, rt hand x2 surgery, umb hernia, past picc line Past Anesthesia/Blood Transfusion Reactions: Postoperative Nausea & Vomiting ( PONV) Additional Past Anesthesia/Blood Transfusion Reaction / Comment(s): .PT STATED AFTER HAND SX HAD DIFFICULTY URINATING AND PAIN MEDS CONSTIPATE HIM. 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 Smoking Status: Current every day smoker Past Alcohol Use History: Rare Additional Past Alcohol Use History / Comment(s): PT STARTED SMOKING AT AGE 14 WORKED UP TO 1.5 PPD BUT HAS CUT DOWN TO 1/2 PPD IS TRYING TO QUIT SMOKING. Past Drug Use History: None Reported - Past Family History Mother Additional Family Medical History / Comment(s): PT STATED MOM WAS HEALTHY BUT IN OLDER AGE GOT PNE- FROM COMPLICATIONS OF PNE. Father Family Medical History: Osteoarthritis (OA) Additional Family Medical History / Comment(s): ULCERS, HEART PROBLEMS HAD BYPASS,BACK SURGURY Medications and Allergies Home Medications Medication Instructions Recorded Confirmed Type HYDROcodone/APAP 7.5-325MG [[place] 1 tab PO Q6HR PRN 11/07/15 01/30/18 History 7.5-325] Aspirin [Adult Low Dose Aspirin EC] 81 mg PO DAILY 04/10/16 01/30/18 History Atorvastatin [Lipitor] 80 mg PO DAILY 08/06/16 01/30/18 History Furosemide [Lasix] 80 mg PO DAILY 08/28/17 01/30/18 History Metoprolol Tartrate [Lopressor] 12.5 mg PO DIRECTED 08/28/17 01/30/18 History metFORMIN HCL [Glucophage] 1,000 mg PO BID 08/28/17 01/30/18 History Ammonium Lactate Lotion 1 applic TOPICAL BID applic 09/17/17 01/30/18 Rx [Lac-Hydrin 12% Lotion] Furosemide [Lasix] 40 mg PO DAILY@1500 tab 09/17/17 01/30/18 Rx Losartan [Cozaar] 25 mg PO DAILY #30 tab 09/17/17 01/30/18 Rx Metolazone [Zaroxolyn] 2.5 mg PO MoWeFr@0900 #30 tab 09/17/17 01/30/18 Rx Potassium Chloride ER [K-Dur 20] 20 meq PO DAILY 01/30/18 01/30/18 History Allergies Allergy/AdvReac Type Severity Reaction Status Date / Time Penicillins Allergy Rash/Hives Verified 01/30/18 15:09 gabapentin [From Neurontin] AdvReac Nausea Verified 01/30/18 15:09 Physical Exam Vitals: Vital Signs Temp Pulse Pulse Resp BP BP Pulse Ox 01/31/18 08:00 16 01/31/18 05:00 98.0 F 63 16 120/57 97 01/30/18 23:00 98.1 F 69 16 102/58 97 01/30/18 22:13 105/67 01/30/18 18:01 98 F 72 18 117/55 99 01/30/18 16:48 71 20 111/59 99 01/30/18 16:00 72 20 121/56 99 01/30/18 14:29 98.4 F 71 18 106/51 99 Intake and Output 01/30/18 01/31/18 01/31/18 22:59 06:59 14:59 Intake Total 590 Balance 590 Intake: Oral 590 Other: Voiding Method Toilet # Voids 2 3 Weight 104.644 kg 118.572 kg 103.221 kg - Constitutional General appearance: no acute distress - Respiratory Respiratory: bilateral: rales - Cardiovascular Rhythm: regular Heart sounds: normal: S1, S2 Results 01/31/18 07:00 01/31/18 07:00 Cardiac Enzymes 01/30/18 01/31/18 Range/Units 15:13 07:00 AST 23 19 (17-59) U/L Coagulation 01/30/18 Range/Units 15:13 PT 10.4 (9.0-12.0) sec APTT 23.8 (22.0-30.0) sec CBC 01/30/18 01/31/18 Range/Units 15:13 07:00 WBC 6.5 5.2 (3.8-10.6) k/uL RBC 4.30 3.81 L (4.30-5.90) m/uL Hgb 13.4 12.1 L (13.0-17.5) gm/dL Hct 39.1 34.2 L (39.0-53.0) % Plt Count 166 124 L (150-450) k/uL Comprehensive Metabolic Panel 01/30/18 01/31/18 Range/Units 15: 07:00 Sodium 139 140 (137-145) mmol/L Potassium 4.3 4.1 (3.5-5.1) mmol/L Chloride 106 105 (98-107) mmol/L Carbon Dioxide 23 27 (22-30) mmol/L BUN 13 17 (9-20) mg/dL Creatinine 0.94 1.04 (0.66-1.25) mg/dL Glucose 295 H 176 H (74-99) mg/dL Calcium 9.2 9.1 (8.4-10.2) mg/dL AST 23 19 (17-59) U/L ALT 29 29 (21-72) U/L Alkaline Phosphatase 88 83 (38-126) U/L Total Protein 6.8 6.3 (6.3-8.2) g/dL Albumin 4.1 3.7 (3.5-5.0) g/dL Current Medications Generic Name Dose Route Start Last Admin Trade Name Freq PRN Reason Stop Dose Admin Acetaminophen 650 mg 01/30/18 16:39 Tylenol Tab PO Q6HR PRN Mild Pain or Fever > 100.5 Hydrocodone Bitart/Acetaminophen 1 each 01/30/18 16:43 [place] 7.5-325 PO Q6HR PRN Moderate Pain Aspirin 81 mg 01/31/18 09:00 01/31/18 08:55 Aspirin PO 81 mg DAILY [facility] Administration Atorvastatin Calcium 80 mg 01/31/18 09:00 01/31/18 08:55 Lipitor PO 80 mg DAILY [facility] Administration Furosemide 80 mg 01/30/18 21:00 01/31/18 08:55 Lasix IV 80 mg Q12HR [place] Administration Sodium Chloride 1,000 mls @ 20 mls/hr 01/30/18 16:39 01/30/18 17:49 Saline 0.9% IV 01/31/18 16:38 Not Given .Q24H ONE Lactic Acid 1 applic 01/30/18 21:15 01/31/18 08:56 Lac-Hydrin 12% TOPICAL 1 applic BID [facility] Administration Lactulose 20 gm 01/30/18 21:09 Cephulac PO DAILY PRN Constipation Lorazepam 0.5 mg 01/30/18 16:39 Ativan IV Q6HR PRN Anxiety Losartan Potassium 25 mg 01/31/18 09:00 01/31/18 08:55 Cozaar PO 25 mg DAILY [place] Administration Magnesium Hydroxide 2,400 mg 01/30/18 21:09 Milk Of Magnesia PO DAILY PRN Constipation Melatonin 3 mg 01/30/18 21:09 Melatonin PO HS PRN Insomnia Metformin HCl 1,000 mg 01/30/18 17:30 01/31/18 08:55 Glucophage PO 1,000 mg BID-W/MEALS [facility] Administration Metolazone 2.5 mg 02/02/18 09:00 Zaroxolyn PO MoWeFr@0900 [place] Metoprolol Tartrate 12.5 mg 01/31/18 09:00 01/31/18 08:55 Lopressor PO 12.5 mg Q48H [place] Administration Metoprolol Tartrate 12.5 mg 01/31/18 21:00 Lopressor PO Q48H [facility] Morphine Sulfate 4 mg 01/30/18 16:39 Morphine Sulfate (Inj) IV Q4HR PRN Severe Pain Naloxone HCl 0.2 mg 01/30/18 16:39 Narcan IV Q2M PRN Opioid Reversal Ondansetron HCl 4 mg 01/30/18 16:39 Zofran IVP Q8HR PRN Nausea And Vomiting Potassium Chloride 20 meq 01/30/18 21:15 01/31/18 08:55 K-Dur 20 PO 20 meq DAILY [place] Administration Intake and Output 01/30/18 01/31/18 01/31/18 22:59 06:59 14:59 Intake Total 590 Balance 590 Intake: Oral 590 Other: Voiding Method Toilet # Voids 2 3 Weight 104.644 kg 118.572 kg 103.221 kg Patient Weight 02/01/18 06:59 Weight 103.221 kg 01/31/18 07:00 01/31/18 07:00 Assessment and Plan Assessment: Assessment #1 acute exacerbation of systolic congestive heart failure #2 known severe ischemic cardiomyopathy with an EF of less than 20% #3 known severe underlying coronary artery disease #4 noncompliance with diet #5 significant history of smoking Plan #1 the patient was already started on Lasix IV and we'll continue that for additional 24 hours at least #2 continue monitor the input and output and weight daily #3 monitor the kidney function and electrolytes #4 he was advised about the importance of taking his medications on a regular basis including the diuretics as well as the importance of being compliant with his diet #5 follow-up with him. Thank you for allowing us participate in his care and we'll continue following up with him
[2018-01-31] MEDS ORDERED: CALCIUM CARBONATE 500 MG CHEWABLE PO PRN (12:36)
[2018-01-31 14:22] VITALS: BMI 31.7
--- NOTE | 2018-01-31 14:56 | HP ---
HISTORY AND PHYSICAL DATE OF ADMISSION: 01/31/2018 DATE OF SERVICE: 01/31/2018 PRESENTING COMPLAINT: Short of breath, lower extremity edema. HISTORY OF PRESENTING COMPLAINT: This is a pleasant 73-year-old patient of Dr. Brown. Chronic stable medical conditions include coronary artery disease with prior history of bypass, diabetes mellitus, type 2, hypertension, hyperlipidemia, peripheral artery disease. Patient has noticed increasing edema of the lower extremities coming on for a few days. The patient is slightly short of breath, getting more tired, rundown. Appetite is fair. Some orthopnea. Patient presented to the ER. The patient was found to be in congestive heart failure, started on IV Lasix. The patient started to diurese and is feeling a bit better for the same. There was no chest pain and no pressure. REVIEW OF SYSTEMS: CONSTITUTIONAL: Weak and tired. HEENT: None. RESPIRATORY: As above. CARDIOVASCULAR: As above. GASTROINTESTINAL: None. GENITOURINARY: None. MUSCULOSKELETAL: None. DERMATOLOGICAL: None. HEMATOLOGICAL: None. LYMPHATICS: None. PSYCHIATRY: None. NEUROLOGICAL: None. PAST MEDICAL HISTORY: 1. Obesity. 2. Peripheral artery disease. 3. Hyperlipidemia. 4. Hypertension. 5. Diabetes mellitus, type 2. 6. Coronary artery disease with bypass. 7. Congestive heart failure, EF 20%. 8. Peripheral neuropathy. PAST SURGICAL HISTORY: 1. Appendectomy. 2. Cholecystectomy. 3. Cardiac catheterization with stent. 4. Tonsillectomy. 5. Cervical fusion. 6. Left carpal tunnel release. 7. Cataract left eye. 8. Two stents in 2016. 9. Right leg stent. 10.Right hand surgery. 11.Umbilical hernia repair. SOCIAL HISTORY: . The patient was smoking up to a pack and a half a day, down to half a pack a day. Has been smoking for close to 60 years. Alcohol rarely. FAMILY HISTORY: Heart problem, osteoarthritis. HOME MEDICATIONS: 1. Zaroxolyn 2.5 mg Friday, Friday and Friday. 2. Glucophage 1000 mg b.i.d. 3. Potassium 20 mEq a day. 4. Lopressor 12.5 p.o. as directed. 5. Cozaar 25 mg a day. 6. [place] 7.5 q.6 p.r.n. 7. Lasix 40 mg at 1 p.m., 80 mg in the morning. 8. Lipitor 80 mg a day. 9. Aspirin 81 mg a day. 10.Lac-Hydrin topical b.i.d. ALLERGY: PENICILLIN and GABAPENTIN. PHYSICAL EXAMINATION: VITAL SIGNS ON PRESENTATION: Temperature 98.4, pulse 74, respiration 18, blood pressure 106/51, pulse ox 99% on room air. GENERAL APPEARANCE: Well built; BMI 31.7. Lying in bed, tired-appearing. EYES: Pupils equal. Conjunctivae normal. HEENT: External appearance of nose and ears normal. Oral cavity normal. NECK: JVD raised. Mass not palpable. RESPIRATORY: Effort increased. LUNGS: Decreased breath sounds. CARDIOVASCULAR: First and second sounds normal. Mild edema. ABDOMEN: Soft, nontender. Liver and spleen not palpable. LYMPHATIC: No lymph node palpable in neck or axillae. PSYCHIATRY: Alert and oriented x3. Mood and affect normal. NEUROLOGICAL: Pupils equal. Cranial nerves grossly intact. Power and sensation grossly intact. INVESTIGATIONS: White count 6.5, hemoglobin 13.4, potassium 4.3. BUN and creatinine are normal. ProBNP 1800. Chest x-ray film interpreted by mi shows venous prominence, mild cardiomegaly. ASSESSMENT: 1. Acute on chronic congestive heart failure exacerbation from systolic dysfunction, ejection fraction less than 20%, from underlying coronary artery disease as manifested by venous prominence on the chest x-ray and elevated BNP of 1800. 2. Coronary artery disease with prior history of coronary artery bypass. 3. Diabetes mellitus, type 2, on oral hypoglycemic causing peripheral neuropathy. 4. Essential hypertension. 5. Hyperlipidemia. 6. Peripheral artery disease with prior stent. 7. Obesity; body mass index of more than 30. PLAN: Home medications are resumed. Patient was put on IV Lasix. Will follow electrolytes closely. Patient's Accu-Cheks will be closely followed. The patient is also on Zaroxolyn. Cardiology was consulted. SMOKING CESSATION COUNSELING: The patient was told not to smoke, as this could harm his cardiac status. The patient will be given a nicotine patch. More than 3 minutes was spent on this aspect of the case. MMODL / IJN: [id number] /
[2018-01-31] MEDS: ENOXAPARIN 40 MG/0.4 ML SYRINGE SQ SCH (15:12)
[2018-01-31 17:14] LABS: Glucose,Whole Blood 225 mg/dL (75-99)
[2018-01-31] MEDS ORDERED: METOPROLOL TARTRATE 12.5 MG TAB PO SCH (21:00)
[2018-01-31 21:16] LABS: Glucose,Whole Blood 195 mg/dL (75-99)
[2018-02-01 07:18] LABS: Glucose,Whole Blood 219 mg/dL (75-99)
[2018-02-01 07:52] LABS: Anion Gap 7 mmol/L; Blood Urea Nitrogen 19 mg/dL (9-20); Calcium 9.1 mg/dL (8.4-10.2); Carbon Dioxide 26 mmol/L (22-30); Chloride 103 mmol/L (98-107); Glucose 191 mg/dL (74-99); Potassium 4.2 mmol/L (3.5-5.1); Sodium 136 mmol/L (137-145)
[2018-02-01 08:03] VITALS: RESP 16
[2018-02-01] MEDS: metFORMIN 500 MG TAB PO SCH ×2 (08:05→17:42)
[2018-02-01] MEDS: ATORVASTATIN 80 MG TAB PO SCH (10:21)
[2018-02-01] MEDS: ASPIRIN 81 MG PO SCH (10:21)
[2018-02-01] MEDS: ENOXAPARIN 40 MG/0.4 ML SYRINGE SQ SCH (10:21)
[2018-02-01] MEDS: LOSARTAN 25 MG TAB PO SCH (10:21)
[2018-02-01] MEDS: POTASSIUM CHLORIDE ER 20 MEQ TAB.ER PO SCH (10:21)
[2018-02-01] MEDS: FUROSEMIDE 10 MG/ML 10 ML VIAL IV SCH ×2 (10:21→20:47)
[2018-02-01] MEDS: AMMONIUM LACTATE 12% LOTION 225 GM BTL TOPICAL SCH ×2 (10:22→20:47)
[2018-02-01 11:48] LABS: Glucose,Whole Blood 244 mg/dL (75-99)
--- NOTE | 2018-02-01 16:03 | P.PN ---
Subjective Progress Note Date: 02/01/18 Principal diagnosis: CHF This is a pleasant 73-year-old gentleman who I see in the office as an outpatient with a past medical history significant for coronary artery disease, severe ischemic cardiomyopathy unknown an EF of less than 20%, this based on recent echocardiogram was performed in June 2017, status post AICD, as well as significant history of smoking presented to the hospital complaining of progressive bilateral lower extremities edema. The edema started about 2 weeks ago, around January, and has gotten progressed since then. The patient did gain about 10-12 pounds within the last 2 weeks. The patient denies having any shortness of breath. No exertional dyspnea, orthopnea, or PND. Denies having any chest pain or any chest discomfort. No dizziness or lightheadedness and no syncope. No cough or wheezing or sputum production. He stated that he was compliant with all of his medications but he was not compliant with his diet overall. He was on oral diuretics as an outpatient. The chest x-ray showed findings consistent with CHF. The BNP is not severe lead elevated and is only about 1200s. The CBC and BMP are within normal limits. The patient was admitted to the hospital and he was started on IV Lasix at 80 mg twice a day. He stated that the bilateral lower extremities edema has gotten better already. On follow-up with the patient today, he is feeling overall better. The shortness of breath is better. The bilateral lower extremities edema better the creatinine continues to be stable. For that reason I am going to keep the patient on IV Lasix for additional 24 hours and possible discharge home tomorrow. Objective - Vital Signs Vital signs: Vital Signs Temp 97.9 F 02/01/18 06:56 Pulse 64 02/01/18 06:56 Resp 16 02/01/18 06:56 BP 145/65 02/01/18 06:56 Pulse Ox 98 02/01/18 06:56 Intake & Output 01/31/18 02/01/18 02/01/18 18:59 06:59 18:59 Weight 103.221 kg 101.7 kg Other: Voiding Method Toilet Toilet Toilet # Voids 2 1 5 - Constitutional General appearance: Present: no acute distress - Respiratory Respiratory: bilateral: CTA - Cardiovascular Rhythm: regular Heart sounds: normal: S1, S2 - Labs CBC & Chem 7: 01/31/18 07:00 02/01/18 07:04 Labs: Abnormal Lab Results - Last 24 Hours (Table) 01/31/18 01/31/18 02/01/18 Range/Units 17:09 21:15 06:57 Sodium (137-145) mmol/L Glucose (74-99) mg/dL POC Glucose (mg/dL) 225 H 195 H 219 H (75-99) mg/dL 02/01/18 02/01/18 Range/Units 07:04 10:50 Sodium 136 L (137-145) mmol/L Glucose 191 H (74-99) mg/dL POC Glucose (mg/dL) 244 H (75-99) mg/dL Assessment and Plan Assessment: Assessment #1 acute exacerbation of systolic congestive heart failure #2 known severe ischemic cardiomyopathy with an EF of less than 20% #3 known severe underlying coronary artery disease #4 noncompliance with diet #5 significant history of smoking Plan #1 the patient was already started on Lasix IV and we'll continue that for additional 24 hours at least #2 continue monitor the input and output and weight daily #3 monitor the kidney function and electrolytes #4 he was advised about the importance of taking his medications on a regular basis including the diuretics as well as the importance of being compliant with his diet #5 follow-up with him. Thank you for allowing us participate in his care and we'll continue following up with him
[2018-02-02 06:30] VITALS: BP 115/61; PULSE 75; TEMP 97.9
[2018-02-02] MEDS: ENOXAPARIN 40 MG/0.4 ML SYRINGE SQ SCH (08:04)
[2018-02-02] MEDS: FUROSEMIDE 10 MG/ML 10 ML VIAL IV SCH (08:04)
[2018-02-02] MEDS: METOPROLOL TARTRATE 12.5 MG TAB PO SCH (08:04)
[2018-02-02] MEDS: ATORVASTATIN 80 MG TAB PO SCH (08:04)
[2018-02-02] MEDS: metFORMIN 500 MG TAB PO SCH (08:04)
[2018-02-02] MEDS: LOSARTAN 25 MG TAB PO SCH (08:04)
[2018-02-02] MEDS: POTASSIUM CHLORIDE ER 20 MEQ TAB.ER PO SCH (08:04)
[2018-02-02] MEDS: AMMONIUM LACTATE 12% LOTION 225 GM BTL TOPICAL SCH (08:05)
[2018-02-02] MEDS: ASPIRIN 81 MG PO SCH (08:05)
[2018-02-02] MEDS ORDERED: METOLAZONE 2.5 MG TAB PO SCH (09:00)
[2018-02-02] MEDS ORDERED: SPIRONOLACTONE 25 MG TAB PO SCH (10:45)
[2018-02-02 10:49] LABS: Calcium 9.3 mg/dL (8.4-10.2); Potassium 4.3 mmol/L (3.5-5.1)
--- NOTE | 2018-02-02 11:41 | P.DS ---
Providers Date of admission: 01/31/18 12:36 Attending physician: Maico Segundo Consults: 01/30/18 16:39 Consult Physician Stat Consulting Provider: [facility] Consult Reason/Comments: CHF Do you want consulting provider notified?: Yes, Notify in am Primary care physician: [facility] Course: Patient is a pleasant 76-year-old man admitted with the can start failure exacerbation and acute respiratory failure secondary to that. Patient is presently euvolemic and patient is clinically doing well patient will be discharged today Aldactone was added to his regimen. He admitted cardiology to be discharged. PHYSICAL EXAMINATION: GENERAL: The patient is alert and oriented x3, not in any acute distress. Well developed, well nourished. HEENT: Pupils are round and equally reacting to light. EOMI. No scleral icterus. No conjunctival pallor. Normocephalic, atraumatic. No pharyngeal erythema. No thyromegaly. CARDIOVASCULAR: S1 and S2 present. No murmurs, rubs, or gallops. PULMONARY: Chest is clear to auscultation, no wheezing or crackles. ABDOMEN: Soft, nontender, nondistended, normoactive bowel sounds. No palpable organomegaly. MUSCULOSKELETAL: No joint swelling or deformity. EXTREMITIES: No cyanosis, clubbing, or pedal edema. NEUROLOGICAL: Gross neurological examination did not reveal any focal deficits. SKIN: No rashes. Her other chronic stable medical problems hospitalization course please refer to Dr. Segundo's dictation. Patient Condition at Discharge: Stable Plan - Discharge Summary Discharge Rx Participant: No New Discharge Prescriptions: New Spironolactone [Aldactone] 25 mg PO DAILY #30 tab Continue HYDROcodone/APAP 7.5-325MG [[place] 7.5-325] 1 tab PO Q6HR PRN PRN Reason: Pain Aspirin [Adult Low Dose Aspirin EC] 81 mg PO DAILY Atorvastatin [Lipitor] 80 mg PO DAILY metFORMIN HCL [Glucophage] 1,000 mg PO BID Ammonium Lactate Lotion [Lac-Hydrin 12% Lotion] 1 applic TOPICAL BID applic Losartan [Cozaar] 25 mg PO DAILY #30 tab Metolazone [Zaroxolyn] 2.5 mg PO MoWeFr@0900 #30 tab Changed Furosemide [Lasix] 80 mg PO BID #60 tab Metoprolol Tartrate [Lopressor] 12.5 mg PO BID #60 tab Discontinued Furosemide [Lasix] 40 mg PO DAILY@1500 tab Potassium Chloride ER [K-Dur 20] 20 meq PO DAILY Discharge Medication List HYDROcodone/APAP 7.5-325MG [[place] 7.5-325] 1 tab PO Q6HR PRN 11/07/15 [History] Aspirin [Adult Low Dose Aspirin EC] 81 mg PO DAILY 04/10/16 [History] Atorvastatin [Lipitor] 80 mg PO DAILY 08/06/16 [History] metFORMIN HCL [Glucophage] 1,000 mg PO BID 08/28/17 [History] Ammonium Lactate Lotion [Lac-Hydrin 12% Lotion] 1 applic TOPICAL BID applic [Rx] Losartan [Cozaar] 25 mg PO DAILY #30 tab 09/17/17 [Rx] Metolazone [Zaroxolyn] 2.5 mg PO MoWeFr@0900 #30 tab 09/17/17 [Rx] Furosemide [Lasix] 80 mg PO BID #60 tab 02/01/18 [Rx] Metoprolol Tartrate [Lopressor] 12.5 mg PO BID #60 tab 02/01/18 [Rx] Spironolactone [Aldactone] 25 mg PO DAILY #30 tab 02/02/18 [Rx] Follow up Appointment(s)/Referral(s): cardiolologistdr [Other] - 1 Week Grey Brown DO [Primary Care Provider] - 3 Days (the pharmacy technician inpatient at the office will call the patient back with a date and time.)
--- NOTE | 2018-02-02 13:54 | P.PN ---
Subjective Mr. Mathews is seen and examined on the medical surgical unit resting comfortably in bed. He has past medical history significant for coronary artery disease, severe ischemic cardiomyopathy EF less than 20%, status post AICD, diabetes mellitus, dyslipidemia, hypertension and rheumatoid arthritis. He follows with Dr. Boyle in the office. He presented to the hospital with increasing lower extremity edema, recent weight gain and chest x-ray findings consistent with congestive heart failure. He had been initiated on IV Lasix 80 mg twice a day since admission. On follow-up today he states the edema in his legs has significantly improved, his weight is down 6 kg since admission. Sodium 136, potassium 4.3, creatinine 1.08. Blood pressure 115/61 heart rate 75 afebrile maintaining oxygen saturation on room air. He denies symptoms of shortness of breath, chest pain, dizziness, palpitations or diaphoresis. Objective - Vital Signs Vital signs: Vital Signs Temp 97.9 F 02/02/18 06:30 Pulse 75 02/02/18 06:30 Resp 16 02/02/18 06:30 BP 115/61 02/02/18 06:30 Pulse Ox 96 02/02/18 06:30 Intake & Output 02/01/18 02/02/18 02/02/18 18:59 06:59 18:59 Intake Total 1000 Balance 1000 Weight 100.8 kg Intake: Oral 1000 Other: Voiding Method Toilet Toilet Toilet # Voids 5 2 - Exam GENERAL: Well-appearing, well-nourished and in no acute distress. NECK: Supple without JVD or thyromegaly. LUNGS: Breath sounds clear to auscultation bilaterally. Respiration equal and unlabored. No wheezes, rales or rhonchi. HEART: Regular rate and rhythm without murmurs, rubs or gallops. S1 and S2 heard. EXTREMITIES: Normal range of motion, trace bilateral lower extremity edema. No clubbing or cyanosis. Peripheral pulses intact. - Labs CBC & Chem 7: 01/31/18 07:00 02/02/18 10:15 Labs: Abnormal Lab Results - Last 24 Hours (Table) 02/02/18 Range/Units 10:15 Sodium 136 L (137-145) mmol/L Glucose 235 H (74-99) mg/dL Assessment and Plan Assessment: ASSESSMENT Acute on chronic systolic congestive heart failure Known severe ischemic cardiomyopathy, ejection fraction less than 20% Status post AICD placement History of coronary artery disease Noncompliance with diet Significant history of smoking PLAN Transitioned to oral diuretics 80 mg twice a day for home dose. Add Aldactone 25 mg daily. Discontinue potassium supplementation Importance of dietary restrictions with low salt intake recommended. Daily weights. Follow up with Dr. Boyle in 1-2 weeks. Plan has been discussed in detail with the patient. Nurse Practitioner note has been reviewed, I agree with a documented findings and plan of care. Patient was seen and examined.
--- NOTE | 2018-02-03 14:35 | PN ---
PROGRESS NOTE DATE OF SERVICE: 02/01/2018 PRESENTING COMPLAINT: Short of breath. INTERVAL HISTORY: Patient doing better. Admitted with CHF. Breathing is better. Up to the bathroom, getting Lasix. Tolerating a diet. REVIEW OF SYSTEMS: Done for constitutional, cardiovascular, GI, pulmonary; relevant findings as above. CURRENT MEDICATIONS: Reviewed. PHYSICAL EXAMINATION: Temperature 97.4, pulse 57, respirations 16, blood pressure 142/67, pulse ox 99% on room air. GENERAL APPEARANCE: Sitting up, more comfortable. EYES: Pupils equal, conjunctivae normal. HEENT: External appearance of nose and ears normal, oral cavity normal. NECK: JVD not raised. Mass not palpable. RESPIRATORY: Effort increased. LUNGS: Decreased breath sounds. CARDIOVASCULAR: First and second sounds are normal, improved edema. ABDOMEN: Soft, nontender. Liver and spleen not palpable. PSYCHIATRY: Alert and oriented x3. Mood and affect normal. INVESTIGATIONS: Potassium 4.2, BUN and creatinine are normal. ASSESSMENT: 1. Acute on chronic congestive heart failure exacerbation from systolic dysfunction, ejection fraction less than 20%, underlying coronary artery disease, improving. 2. Diabetes mellitus type 2, on oral hypoglycemic causing peripheral neuropathy. 3. Essential hypertension. 4. Hyperlipidemia. 5. Peripheral artery disease with prior stent. 6. Obesity, body mass index of more than 30. PLAN: Continue patient current medication and treatment plan. Will switch to p.o. Lasix in the morning. Hopefully, can go home tomorrow. Care was discussed with the patient. MMODL / IJN: [id number] /
== END 2018-02-02 13:34 | disposition home or self-care (01) | DRG 291 ==
LOC: EC 14:22 → INTOOBSV 16:38 → 5MS5E 16:38 → OBSVTOIN 16:38 → 5MS5E 17:01 → OBSVTOIN 01-31 12:36 → INTOOBSV 01-31 12:38 → OBSVTOIN 01-31 12:38
PROVIDERS: ADMIT Hospitalist; ATTEND Hospitalist
DX: I11.0 Hypertensive heart disease with heart failure (principal); J96.00 Acute respiratory failure, unspecified whether with hypoxia or hypercapnia; I50.23 Acute on chronic systolic (congestive) heart failure; I25.5 Ischemic cardiomyopathy; M06.9 Rheumatoid arthritis, unspecified; Z79.82 Long term (current) use of aspirin; Z79.84 Long term (current) use of oral hypoglycemic drugs; Z79.899 Other long term (current) drug therapy; Z91.11 Patient's noncompliance with dietary regimen; Z95.1 Presence of aortocoronary bypass graft; I25.2 Old myocardial infarction; Z95.810 Presence of automatic (implantable) cardiac defibrillator; Z95.5 Presence of coronary angioplasty implant and graft; I25.10 Atherosclerotic heart disease of native coronary artery without angina pectoris; F17.210 Nicotine dependence, cigarettes, uncomplicated; E78.5 Hyperlipidemia, unspecified; E66.9 Obesity, unspecified; Z68.31 Body mass index [BMI] 31.0-31.9, adult; Z71.6 Tobacco abuse counseling; E11.42 Type 2 diabetes mellitus with diabetic polyneuropathy; E11.51 Type 2 diabetes mellitus with diabetic peripheral angiopathy without gangrene; Z95.828 Presence of other vascular implants and grafts; Z98.42 Cataract extraction status, left eye; Z98.1 Arthrodesis status; Z86.14 Personal history of Methicillin resistant Staphylococcus aureus infection; Z82.61 Family history of arthritis; Z88.0 Allergy status to penicillin; Z88.8 Allergy status to other drugs, medicaments and biological substances; Z82.49 Family history of ischemic heart disease and other diseases of the circulatory system
CPT/HCPCS: 36415; 71046; 80048; 80053; 83880; 85025; 85610; 85730; 96374; 96375; 99284

== ENCOUNTER 2018-02-23 15:46 | Emergency (ER) | payer MEDICARE, OTHER ==
[2018-02-23 17:42] LABS: Basophils % (A) 1 %; Eosinophils # (A) 0.2 k/uL (0-0.7); Eosinophils % (A) 3 %; HCT 37.2 % (39.0-53.0); Lymphocytes # (A) 1.6 k/uL (1.0-4.8); Lymphocytes % (A) 19 %; MCHC 34.9 g/dL (31.0-37.0); MCV 88.7 fL (80.0-100.0); Mean Platelet Volume 8.1; Monocytes # (A) 0.4 k/uL (0-1.0); Monocytes % (A) 5 %; Neutrophils # (A) 5.9 k/uL (1.3-7.7); Neutrophils % (A) 71 %; Platelet Count 161 k/uL (150-450); RBC 4.19 m/uL (4.30-5.90); WBC 8.4 k/uL (3.8-10.6)
[2018-02-23 17:52] LABS: Albumin 4.2 g/dL (3.5-5.0); Calcium 9.5 mg/dL (8.4-10.2); Total Protein 6.8 g/dL (6.3-8.2)
[2018-02-23 18:00] LABS: Creatine Kinase 66 U/L (55-170)
[2018-02-23] MEDS ORDERED: SODIUM CHLORIDE 0.9% 500 ML IV STA (18:00)
[2018-02-23 18:01] LABS: INR 1.1 (<1.2); Partial Thromboplastin Time 23.9 sec (22.0-30.0); Prothrombin Time 10.8 sec (9.0-12.0)
--- NOTE | 2018-02-23 18:04 | ED ---
General Adult HPI - General Chief complaint: Recheck/Abnormal Lab/Rx Stated complaint: low BP/dehydration Time Seen by Provider: 02/23/18 16:00 Source: patient, RN notes reviewed Mode of arrival: wheelchair Limitations: no limitations - History of Present Illness Initial comments: This is a 73-year-old male who presents emergency Department complaining that over the last few days he's felt much weaker and a little lightheaded when he stands. Patient states he feels very fatigued like he can follow sleep any minute. Patient denies any pain. Patient states she has had diarrhea 3 today. Patient denies any nausea or vomiting. Patient denies any chest pain or palpitations. Patient denies any shortness of breath or difficulty breathing. Patient denies any abdominal pain. Patient denies any leg swelling or calf tenderness more than normal. Patient denies any recent fever or chills. Patient denies headache patient denies any numbness or weakness focally. - Related Data Home Medications Medication Instructions Recorded Confirmed HYDROcodone/APAP 7.5-325MG [[place] 1 tab PO Q6HR PRN 11/07/15 02/23/18 7.5-325] Aspirin [Adult Low Dose Aspirin EC] 81 mg PO DAILY 04/10/16 02/23/18 Atorvastatin [Lipitor] 80 mg PO DAILY 08/06/16 02/23/18 metFORMIN HCL [Glucophage] 1,000 mg PO BID 08/28/17 02/23/18 Previous Rx's Medication Instructions Recorded Ammonium Lactate Lotion 1 applic TOPICAL BID applic 09/17/17 [Lac-Hydrin 12% Lotion] Losartan [Cozaar] 25 mg PO DAILY #30 tab 09/17/17 Metolazone [Zaroxolyn] 2.5 mg PO MoWeFr@0900 #30 tab 09/17/17 Furosemide [Lasix] 80 mg PO BID #60 tab 02/01/18 Metoprolol Tartrate [Lopressor] 12.5 mg PO BID #60 tab 02/01/18 Spironolactone [Aldactone] 25 mg PO DAILY #30 tab 02/02/18 Allergies Allergy/AdvReac Type Severity Reaction Status Date / Time Penicillins Allergy Rash/Hives Verified 02/23/18 17:40 gabapentin [From Neurontin] AdvReac Nausea Verified 02/23/18 17:40 Review of Systems ROS Statement: Those systems with pertinent positive or pertinent negative responses have been documented in the HPI. ROS Other: All systems not noted in ROS Statement are negative. Past Medical History Past Medical History: Chest Pain / Angina, Heart Failure, Diabetes Mellitus, Hyperlipidemia, Hypertension, Myocardial Infarction ([place]), Rheumatoid Arthritis ( RA) Additional Past Medical History / Comment(s): past edema in legs ,2016 rt.foot( heel) wound, bilat leg and hand neuropathy(unable to take gabapentin), recently tx at [facility] for rt hand infection and had sx. poor circulation Last Myocardial Infarction Date:: 2010 History of Any Multi-Drug Resistant Organisms: MRSA, VRE Date of last positivie culture/infection: 12/08/15 MDRO Source:: RIGHT FOOT MRSA AND VRE Past Surgical History: Appendectomy, Cholecystectomy, Heart Catheterization With Stent, Hernia Repair, Tonsillectomy Additional Past Surgical History / Comment(s): cervical fusion , left carpal tunnel release, cataract left eye, HEART STENT X2, 10-16-15 PTBA /RT LEG STENT, rt hand x2 surgery, umb hernia, past picc line Past Anesthesia/Blood Transfusion Reactions: Postoperative Nausea & Vomiting ( PONV) Additional Past Anesthesia/Blood Transfusion Reaction / Comment(s): .PT STATED AFTER HAND SX HAD DIFFICULTY URINATING AND PAIN MEDS CONSTIPATE HIM. Date of Last Stent Placement:: 12/2013 Type of Cardiac Device: AICD Device Placement Date:: 2014 Past Psychological History: No Psychological Hx Reported Smoking Status: Current every day smoker Past Alcohol Use History: Rare Past Drug Use History: None Reported - Past Family History Mother Additional Family Medical History / Comment(s): PT STATED MOM WAS HEALTHY BUT IN OLDER AGE GOT PNE- FROM COMPLICATIONS OF PNE. Father Family Medical History: Osteoarthritis (OA) Additional Family Medical History / Comment(s): ULCERS, HEART PROBLEMS HAD BYPASS,BACK SURGURY General Exam - General Exam Comments Initial Comments: GENERAL: Patient is well-developed and well-nourished. Patient is nontoxic and well- hydrated and is in mild distress. ENT: Neck is soft and supple. No significant lymphadenopathy is noted. Oropharynx is clear. Moist mucous membranes. Neck has full range of motion without eliciting any pain. EYES: The sclera were anicteric and conjunctiva were pink and moist. Extraocular movements were intact and pupils were equal round and reactive to light. Eyelids were unremarkable. PULMONARY: Unlabored respirations. Good breath sounds bilaterally. No audible rales rhonchi or wheezing was noted. CARDIOVASCULAR: Patient is bradycardic at 55 bpm ABDOMEN: Soft and nontender with normal bowel sounds. No palpable organomegaly was noted. There is no palpable pulsatile mass. SKIN: Chronic skin changes to bilateral legs. NEUROLOGIC: Patient is alert and oriented x3. Cranial nerves II through XII are grossly intact. Motor and sensory are also intact. Normal speech, volume and content. Symmetrical smile. MUSCULOSKELETAL: Normal extremities with adequate strength and full range of motion. 1+ edema negative calf tenderness LYMPHATICS: No significant lymphadenopathy is noted PSYCHIATRIC: Normal psychiatric evaluation. Limitations: no limitations Course Vital Signs 02/23/18 02/23/18 02/23/18 15:58 18:34 19:36 Temperature 98.5 F Pulse Rate 56 L 59 L Pulse Rate [ 59 L [place] ] Respiratory 20 18 Rate Blood Pressure 96/59 119/59 Blood Pressure [Right Arm Sitting] Blood Pressure [Right Arm Standing] Blood Pressure 135/60 [Right Arm Supine] O2 Sat by Pulse 100 98 Oximetry 02/23/18 02/23/18 19:37 20:24 Temperature 97.8 F Pulse Rate 58 L Pulse Rate [ 54 L [place] ] Respiratory 20 Rate Blood Pressure 132/60 Blood Pressure 119/58 [Right Arm Sitting] Blood Pressure 118/56 [Right Arm Standing] Blood Pressure [Right Arm Supine] O2 Sat by Pulse 99 Oximetry Medical Decision Making - Medical Decision Making EKG shows sinus bradycardia 57 bpm MO interval is 202 QRS is 112 QTC intervals 436 QTC is 424 patient's EKG shows a right bundle branch block. Patient's EKG shows some T-wave inversion in the precordial leads which was seen her previous EKG. Patient stated that at the facility he was at a nourished his blood pressure and he had multiple readings one of which was in the 70s to of which were in the low 80s systolically. Patient received some fluids in the emergency department his blood pressure came up and he was feeling considerably better. Patient remained bradycardic throughout stay. 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 - Lab Data Result diagrams: 02/23/18 17:28 02/23/18 17:28 Lab Results 02/23/18 02/23/18 02/23/18 Range/Units 17:28 17:28 17:28 WBC 8.4 (3.8-10.6) k/uL RBC 4.19 L (4.30-5.90) m/uL Hgb 13.0 (13.0-17.5) gm/dL Hct 37.2 L (39.0-53.0) % MCV 88.7 (80.0-100.0) fL MCH 31.0 (25.0-35.0) pg MCHC 34.9 (31.0-37.0) g/dL RDW 14.0 (11.5-15.5) % Plt Count 161 (150-450) k/uL Neutrophils % 71 % Lymphocytes % 19 % Monocytes % 5 % Eosinophils % 3 % Basophils % 1 % Neutrophils # 5.9 (1.3-7.7) k/uL Lymphocytes # 1.6 (1.0-4.8) k/uL Monocytes # 0.4 (0-1.0) k/uL Eosinophils # 0.2 (0-0.7) k/uL Basophils # 0.0 (0-0.2) k/uL PT (9.0-12.0) sec INR (<1.2) APTT (22.0-30.0) sec Sodium 137 (137-145) mmol/L Potassium 4.0 (3.5-5.1) mmol/L Chloride 103 (98-107) mmol/L Carbon Dioxide 24 (22-30) mmol/L Anion Gap 10 mmol/L BUN 21 H (9-20) mg/dL Creatinine 1.06 (0.66-1.25) mg/dL Est GFR (CKD-EPI)AfAm 80 (>60 ml/min/1.73 sqM) Est GFR (CKD-EPI)NonAf 69 (>60 ml/min/1.73 sqM) Glucose 143 H (74-99) mg/dL Calcium 9.5 (8.4-10.2) mg/dL Magnesium (1.6-2.3) mg/dL Total Bilirubin 2.0 H (0.2-1.3) mg/dL AST 22 (17-59) U/L ALT 28 (21-72) U/L Alkaline Phosphatase 73 (38-126) U/L Total Creatine Kinase 66 (55-170) U/L CK-MB (CK-2) 2.8 H* (0.0-2.4) ng/mL CK-MB (CK-2) Rel Index 4.2 Troponin I <0.012 (0.000-0.034) ng/mL Total Protein 6.8 (6.3-8.2) g/dL Albumin 4.2 (3.5-5.0) g/dL Urine Color Urine Appearance (Clear) Urine pH (5.0-8.0) Ur Specific [place] (1.001-1.035) Urine Protein (Negative) Urine Glucose (UA) (Negative) Urine Ketones (Negative) Urine Blood (Negative) Urine Nitrite (Negative) Urine Bilirubin (Negative) Urine Urobilinogen (<2.0) mg/dL Ur Leukocyte Esterase (Negative) 02/23/18 02/23/18 02/23/18 Range/Units 17:28 17:28 19:57 WBC (3.8-10.6) k/uL RBC (4.30-5.90) m/uL Hgb (13.0-17.5) gm/dL Hct (39.0-53.0) % MCV (80.0-100.0) fL MCH (25.0-35.0) pg MCHC (31.0-37.0) g/dL RDW (11.5-15.5) % Plt Count (150-450) k/uL Neutrophils % % Lymphocytes % % Monocytes % % Eosinophils % % Basophils % % Neutrophils # (1.3-7.7) k/uL Lymphocytes # (1.0-4.8) k/uL Monocytes # (0-1.0) k/uL Eosinophils # (0-0.7) k/uL Basophils # (0-0.2) k/uL PT 10.8 (9.0-12.0) sec INR 1.1 (<1.2) APTT 23.9 (22.0-30.0) sec Sodium (137-145) mmol/L Potassium (3.5-5.1) mmol/L Chloride (98-107) mmol/L Carbon Dioxide (22-30) mmol/L Anion Gap mmol/L BUN (9-20) mg/dL Creatinine (0.66-1.25) mg/dL Est GFR (CKD-EPI)AfAm (>60 ml/min/1.73 sqM) Est GFR (CKD-EPI)NonAf (>60 ml/min/1.73 sqM) Glucose (74-99) mg/dL Calcium (8.4-10.2) mg/dL Magnesium 1.4 L (1.6-2.3) mg/dL Total Bilirubin (0.2-1.3) mg/dL AST (17-59) U/L ALT (21-72) U/L Alkaline Phosphatase (38-126) U/L Total Creatine Kinase (55-170) U/L CK-MB (CK-2) (0.0-2.4) ng/mL CK-MB (CK-2) Rel Index Troponin I (0.000-0.034) ng/mL Total Protein (6.3-8.2) g/dL Albumin (3.5-5.0) g/dL Urine Color Yellow Urine Appearance Clear (Clear) Urine pH 5.5 (5.0-8.0) Ur Specific [place] 1.013 (1.001-1.035) Urine Protein Trace H (Negative) Urine Glucose (UA) Negative (Negative) Urine Ketones Negative (Negative) Urine Blood Negative (Negative) Urine Nitrite Negative (Negative) Urine Bilirubin Negative (Negative) Urine Urobilinogen <2.0 (<2.0) mg/dL Ur Leukocyte Esterase Negative (Negative) Disposition Clinical Impression: Intermittent lightheadedness, Bradycardia, Transient hypotension Disposition: HOME SELF-CARE Condition: Good Instructions: Hypotension (ED), Bradycardia (ED) Is patient prescribed a controlled substance at d/c from ED?: No Referrals: Grey Brown DO [Primary Care Provider] - 1-2 days Time of Disposition: 20:12
[2018-02-23 18:14] LABS: Troponin I <0.012 ng/mL (0.000-0.034)
[2018-02-23 18:33] LABS: Creatine Kinase MB 2.8 ng/mL (0.0-2.4)
[2018-02-23] MEDS ORDERED: MAGNESIUM SULFATE-D5W PMX 1 GM in DEXTROSE/WATER 1 100ML.BAG IVPB ONE (19:32)
--- NOTE | 2018-02-23 19:56 | XR ---
EXAMINATION: XR chest 2V DATE AND TIME: 02/23/2018 7:02 PM ORDERING PROVIDER: Pasha Landa MD CLINICAL INDICATION: Weakness TECHNIQUE: PA and lateral COMPARISON: 01/30/2019 DESCRIPTION: Cardiac pacemaker and EKG leads noted. The lungs are clear. The pleural spaces are negative. The cardiac silhouette is mild moderately enlar ged. The mediastinal and pleural silhouettes are unremarkable. The skeletal structures are intact wit hout focal findings. The soft tissues are unremarkable. IMPRESSION: NO ACUTE PROCESS.
[2018-02-23 20:06] LABS: Appearance,Urine Clear (Clear); Bilirubin,Urine Negative (Negative); Blood,Urine Negative (Negative); Color,Urine Yellow; Glucose,Urine (UA) Negative (Negative); Ketones,Urine Negative (Negative); Leukocyte Esterase,Urine Negative (Negative); Nitrite,Urine Negative (Negative); PH, Urine 5.5 (5.0-8.0); Protein,Urine Trace (Negative); Specific Gravity,Urine 1.013 (1.001-1.035); Urobilinogen,Urine <2.0 mg/dL (<2.0)
[2018-02-23 20:25] VITALS: BP 132/60; PULSE 58; RESP 20; TEMP 97.8
== END 2018-02-23 21:06 | disposition home or self-care (01) ==
LOC: EC 15:46
DX: I95.89 Other hypotension (principal); R00.1 Bradycardia, unspecified; I45.10 Unspecified right bundle-branch block; I11.0 Hypertensive heart disease with heart failure; I50.9 Heart failure, unspecified; E78.5 Hyperlipidemia, unspecified; I25.2 Old myocardial infarction; E11.40 Type 2 diabetes mellitus with diabetic neuropathy, unspecified; F17.200 Nicotine dependence, unspecified, uncomplicated; Z86.14 Personal history of Methicillin resistant Staphylococcus aureus infection; Z79.84 Long term (current) use of oral hypoglycemic drugs; Z79.899 Other long term (current) drug therapy; Z79.82 Long term (current) use of aspirin; Z88.0 Allergy status to penicillin; Z88.8 Allergy status to other drugs, medicaments and biological substances; Z95.5 Presence of coronary angioplasty implant and graft; Z95.810 Presence of automatic (implantable) cardiac defibrillator
CPT/HCPCS: 36415; 93005; 80053; 82550; 82553; 83735; 84484; 85025; 85610; 85730; 81003; 71046; 99284; 96365; 96361; J3475

== ENCOUNTER 2018-06-09 15:03 | Inpatient (IN) | payer MEDICARE, OTHER ==
[2018-06-09] MEDS ORDERED: SODIUM CHLORIDE 0.9% 1,000 ML IV STA (15:34)
[2018-06-09] MEDS ORDERED: MORPHINE SULFATE 4 MG/ML SYRINGE IV STA (15:34)
[2018-06-09] MEDS ORDERED: VANCOMYCIN IV PER PHARMACY 1 EACH MISC MISCELLANE PRN (15:34)
--- NOTE | 2018-06-09 15:36 | ED ---
Extremity Problem HPI - General Chief complaint: Extremity Problem,Nontraumatic Stated complaint: Swollen legs Time Seen by Provider: 06/09/18 15:17 Source: patient, RN notes reviewed, old records reviewed Mode of arrival: ambulatory Limitations: no limitations - History of Present Illness Initial comments: This is a 73-year-old male the ER for evaluation of lower extremity cellulitis and erythema, tenderness. Patient disease or thyroid significant significantly progressively worsened. He states he is a small to 3 times a year. Last significant fever, is having weeping from both legs significant pain and discomfort, significant swelling. Patient states his blood sugars and maintain fairly well-controlled with 200 MD Complaint: extremity swelling (Bilateral lower) -: days(s) (3) Location: bilateral lower extremity History of Same: Yes -: Yes fever (No fevers) Radiation: none Severity scale (1-10): 5 Quality: aching Consistency: constant Improves with: nothing Worsens with: nothing Associated Symptoms: denies other symptoms - Related Data Home Medications Medication Instructions Recorded Confirmed HYDROcodone/APAP 7.5-325MG [[place] 1 tab PO Q6HR PRN 11/07/15 06/09/18 7.5-325] Aspirin [Adult Low Dose Aspirin EC] 81 mg PO DAILY 04/10/16 06/09/18 Atorvastatin [Lipitor] 80 mg PO DAILY 08/06/16 06/09/18 metFORMIN HCL [Glucophage] 1,000 mg PO BID 08/28/17 06/09/18 Previous Rx's Medication Instructions Recorded Ammonium Lactate Lotion 1 applic TOPICAL BID applic 09/17/17 [Lac-Hydrin 12% Lotion] Losartan [Cozaar] 25 mg PO DAILY #30 tab 09/17/17 Metolazone [Zaroxolyn] 2.5 mg PO MoWeFr@0900 #30 tab 09/17/17 Furosemide [Lasix] 80 mg PO BID #60 tab 02/01/18 Metoprolol Tartrate [Lopressor] 12.5 mg PO BID #60 tab 02/01/18 Spironolactone [Aldactone] 25 mg PO DAILY #30 tab 02/02/18 Allergies Allergy/AdvReac Type Severity Reaction Status Date / Time Penicillins Allergy Rash/Hives Verified 06/09/18 16:23 gabapentin [From Neurontin] AdvReac Nausea Verified 06/09/18 16:23 Review of Systems ROS Statement: Those systems with pertinent positive or pertinent negative responses have been documented in the HPI. ROS Other: All systems not noted in ROS Statement are negative. Past Medical History Past Medical History: Chest Pain / Angina, Heart Failure, Diabetes Mellitus, Hyperlipidemia, Hypertension, Myocardial Infarction ([place]), Rheumatoid Arthritis ( RA) Additional Past Medical History / Comment(s): past edema in legs ,2016 rt.foot( heel) wound, bilat leg and hand neuropathy(unable to take gabapentin), recently tx [facility] hand infection and had sx. poor circulation Last Myocardial Infarction Date:: 2010 History of Any Multi-Drug Resistant Organisms: MRSA, VRE Date of last positivie culture/infection: 12/08/15 MDRO Source:: RIGHT FOOT MRSA AND VRE Past Surgical History: Appendectomy, Cholecystectomy, Heart Catheterization With Stent, Hernia Repair, Tonsillectomy Additional Past Surgical History / Comment(s): cervical fusion , left carpal tunnel release, cataract left eye, HEART STENT X2, 10-16-15 PTBA /RT LEG STENT, rt hand x2 surgery, umb hernia, past picc line Past Anesthesia/Blood Transfusion Reactions: Postoperative Nausea & Vomiting ( PONV) Additional Past Anesthesia/Blood Transfusion Reaction / Comment(s): .PT STATED AFTER HAND SX HAD DIFFICULTY URINATING AND PAIN MEDS CONSTIPATE HIM. Date of Last Stent Placement:: 12/2013 Type of Cardiac Device: AICD Device Placement Date:: 2014 Past Psychological History: No Psychological Hx Reported Smoking Status: Current every day smoker Past Alcohol Use History: Rare Past Drug Use History: None Reported - Past Family History Mother Additional Family Medical History / Comment(s): PT STATED MOM WAS HEALTHY BUT IN OLDER AGE GOT PNE- FROM COMPLICATIONS OF PNE. Father Family Medical History: Osteoarthritis (OA) Additional Family Medical History / Comment(s): ULCERS, HEART PROBLEMS HAD BYPASS,BACK SURGURY General Exam Limitations: no limitations General appearance: alert, in no apparent distress Head exam: Present: atraumatic, normocephalic, normal inspection Eye exam: Present: normal appearance, PERRL, EOMI. Absent: scleral icterus, conjunctival injection, periorbital swelling ENT exam: Present: normal exam, mucous membranes moist Neck exam: Present: normal inspection. Absent: tenderness, meningismus, lymphadenopathy Respiratory exam: Present: normal lung sounds bilaterally. Absent: respiratory distress, wheezes, rales, rhonchi, stridor Cardiovascular Exam: Present: regular rate, normal rhythm, normal heart sounds. Absent: systolic murmur, diastolic murmur, rubs, gallop, clicks GI/Abdominal exam: Present: soft, normal bowel sounds. Absent: distended, tenderness, guarding, rebound, rigid Extremities exam: Present: normal inspection, full ROM, normal capillary refill , other (bialteral LE edema, erythema, weeping). Absent: tenderness, pedal edema, joint swelling, calf tenderness Back exam: Present: normal inspection Neurological exam: Present: alert, oriented X3, CN II-XII intact Psychiatric exam: Present: normal affect, normal mood Skin exam: Present: warm, dry, intact, normal color. Absent: rash Course Vital Signs 06/09/18 15:08 Temperature 98.3 F Pulse Rate 83 Respiratory 18 Rate Blood Pressure 131/83 O2 Sat by Pulse 100 Oximetry Medical Decision Making - Medical Decision Making 73 male the ER for evaluation of bilateral lower extremity edema swelling and erythema. Tenderness, no significant lower extremity circumferential cellulitis in the foot up to knee. Patient be admitted for IV antibiotics - Lab Data Result diagrams: 06/09/18 15:50 06/09/18 15:50 Lab Results 06/09/18 06/09/18 06/09/18 Range/Units 15:50 15:50 15:50 WBC 3.9 (3.8-10.6) k/uL RBC 3.81 L (4.30-5.90) m/uL Hgb 11.6 L (13.0-17.5) gm/dL Hct 35.3 L (39.0-53.0) % MCV 92.7 (80.0-100.0) fL MCH 30.4 (25.0-35.0) pg MCHC 32.8 (31.0-37.0) g/dL RDW 13.9 (11.5-15.5) % Plt Count 34 L (150-450) k/uL Neutrophils % 68 % Lymphocytes % 23 % Monocytes % 4 % Eosinophils % 4 % Basophils % 0 % Neutrophils # 2.6 (1.3-7.7) k/uL Lymphocytes # 0.9 L (1.0-4.8) k/uL Monocytes # 0.2 (0-1.0) k/uL Eosinophils # 0.2 (0-0.7) k/uL Basophils # 0.0 (0-0.2) k/uL Manual Slide Review Performed Poikilocytosis (manual Present Sodium 140 (137-145) mmol/L Potassium 5.2 H (3.5-5.1) mmol/L Chloride 111 H (98-107) mmol/L Carbon Dioxide 23 (22-30) mmol/L Anion Gap 6 mmol/L BUN 21 H (9-20) mg/dL Creatinine 0.81 (0.66-1.25) mg/dL Est GFR (CKD-EPI)AfAm >90 (>60 ml/min/1.73 sqM) Est GFR (CKD-EPI)NonAf 88 (>60 ml/min/1.73 sqM) Glucose 267 H (74-99) mg/dL Plasma Lactic Acid Steve (0.7-2.0) mmol/L Calcium 9.1 (8.4-10.2) mg/dL Phosphorus 3.4 (2.5-4.5) mg/dL Magnesium 1.9 (1.6-2.3) mg/dL Total Bilirubin 1.3 (0.2-1.3) mg/dL AST 29 (17-59) U/L ALT 32 (21-72) U/L Alkaline Phosphatase 87 (38-126) U/L Total Creatine Kinase 124 (55-170) U/L CK-MB (CK-2) 3.6 H (0.0-2.4) ng/mL CK-MB (CK-2) Rel Index 2.9 Troponin I 0.015 (0.000-0.034) ng/mL Total Protein 6.7 (6.3-8.2) g/dL Albumin 3.6 (3.5-5.0) g/dL 06/09/18 Range/Units 15:50 WBC (3.8-10.6) k/uL RBC (4.30-5.90) m/uL Hgb (13.0-17.5) gm/dL Hct (39.0-53.0) % MCV (80.0-100.0) fL MCH (25.0-35.0) pg MCHC (31.0-37.0) g/dL RDW (11.5-15.5) % Plt Count (150-450) k/uL Neutrophils % % Lymphocytes % % Monocytes % % Eosinophils % % Basophils % % Neutrophils # (1.3-7.7) k/uL Lymphocytes # (1.0-4.8) k/uL Monocytes # (0-1.0) k/uL Eosinophils # (0-0.7) k/uL Basophils # (0-0.2) k/uL Manual Slide Review Poikilocytosis (manual Sodium (137-145) mmol/L Potassium (3.5-5.1) mmol/L Chloride (98-107) mmol/L Carbon Dioxide (22-30) mmol/L Anion Gap mmol/L BUN (9-20) mg/dL Creatinine (0.66-1.25) mg/dL Est GFR (CKD-EPI)AfAm (>60 ml/min/1.73 sqM) Est GFR (CKD-EPI)NonAf (>60 ml/min/1.73 sqM) Glucose (74-99) mg/dL Plasma Lactic Acid Steve 1.7 (0.7-2.0) mmol/L Calcium (8.4-10.2) mg/dL Phosphorus (2.5-4.5) mg/dL Magnesium (1.6-2.3) mg/dL Total Bilirubin (0.2-1.3) mg/dL AST (17-59) U/L ALT (21-72) U/L Alkaline Phosphatase (38-126) U/L Total Creatine Kinase (55-170) U/L CK-MB (CK-2) (0.0-2.4) ng/mL CK-MB (CK-2) Rel Index Troponin I (0.000-0.034) ng/mL Total Protein (6.3-8.2) g/dL Albumin (3.5-5.0) g/dL - EKG Data -: EKG Interpreted by Me (EKG shows sinus rhythm rate of 76, ME 186, QRS 02, QTc 461) Disposition Clinical Impression: Cellulitis, Pedal edema, Leg edema, Diabetes, Bilateral lower leg cellulitis Disposition: ADMITTED IP TO THIS HOSP Condition: Fair Is patient prescribed a controlled substance at d/c from ED?: No Referrals: Grey Brown DO [Primary Care Provider] - 1-2 days
[2018-06-09] MEDS ORDERED: VANCOMYCIN 2,000 MG in SODIUM CHLORIDE 0.9% 500 ML 500 ML IVPB ONE (15:45)
[2018-06-09 16:23] LABS: Basophils % (A) 0 %; Eosinophils # (A) 0.2 k/uL (0-0.7); Eosinophils % (A) 4 %; HCT 35.3 % (39.0-53.0); HGB 11.6 gm/dL (13.0-17.5); Lymphocytes # (A) 0.9 k/uL (1.0-4.8); Lymphocytes % (A) 23 %; MCH 30.4 pg (25.0-35.0); MCHC 32.8 g/dL (31.0-37.0); MCV 92.7 fL (80.0-100.0); Mean Platelet Volume 8.4; Monocytes # (A) 0.2 k/uL (0-1.0); Monocytes % (A) 4 %; Neutrophils # (A) 2.6 k/uL (1.3-7.7); Neutrophils % (A) 68 %; RBC 3.81 m/uL (4.30-5.90); RDW 13.9 % (11.5-15.5); WBC 3.9 k/uL (3.8-10.6)
[2018-06-09 16:26] LABS: ALT 32 U/L (21-72); AST 29 U/L (17-59); Albumin 3.6 g/dL (3.5-5.0); Alkaline Phosphatase 87 U/L (38-126); Anion Gap 6 mmol/L; Blood Urea Nitrogen 21 mg/dL (9-20); Calcium 9.1 mg/dL (8.4-10.2); Carbon Dioxide 23 mmol/L (22-30); Chloride 111 mmol/L (98-107); Glucose 267 mg/dL (74-99); Magnesium 1.9 mg/dL (1.6-2.3); Phosphorus 3.4 mg/dL (2.5-4.5); Potassium 5.2 mmol/L (3.5-5.1); Sodium 140 mmol/L (137-145); Total Bilirubin 1.3 mg/dL (0.2-1.3); Total Protein 6.7 g/dL (6.3-8.2)
[2018-06-09 16:43] LABS: Creatine Kinase MB 3.6 ng/mL (0.0-2.4); Troponin I 0.015 ng/mL (0.000-0.034)
[2018-06-09 17:06] LABS: Platelet Count 34 k/uL (150-450); Poikilocytosis (M) Present
[2018-06-09 20:50] LABS: Glucose,Whole Blood 204 mg/dL (75-99)
[2018-06-09] MEDS: HYDROcodone/APAP 7.5-325MG 1 EACH TAB PO PRN (22:17)
[2018-06-09] MEDS: METOPROLOL TARTRATE 12.5 MG TAB PO SCH (22:22)
[2018-06-09] MEDS: metFORMIN 500 MG TAB PO SCH (22:22)
[2018-06-09] MEDS: AMMONIUM LACTATE 12% LOTION 225 GM BTL TOPICAL SCH (22:23)
[2018-06-10 00:04] LABS: INR 1.1 (<1.2); Partial Thromboplastin Time 24.6 sec (22.0-30.0); Prothrombin Time 10.6 sec (9.0-12.0)
--- NOTE | 2018-06-10 00:25 | HP ---
HISTORY AND PHYSICAL DATE OF ADMISSION: 06/09/2018 DATE OF SERVICE: 06/09/2018 PRESENTING COMPLAINT: Lower extremity swelling and redness. HISTORY OF PRESENTING COMPLAINT: This is a 73-year-old patient of Dr. Brown. Chronic stable medical conditions include coronary artery disease, diabetes, hypertension, hyperlipidemia, peripheral artery disease. The patient presents with increasing swelling in both lower extremities. Some breakdown of skin, redness, tenderness. Denies any fever and chills. Some baseline short of breath. No obvious orthopnea, PND. The patient has put on weight. The patient has continued to smoke. Some wheezing. REVIEW OF SYSTEMS: CONSTITUTIONAL: Tired. HEENT none. RESPIRATORY: Some short of breath, cough. CARDIOVASCULAR: As above. GASTROINTESTINAL: None. GENITOURINARY: None. MUSCULOSKELETAL: Some pain in joints. DERMATOLOGICAL as above. LYMPHATICS none. HEMATOLOGICAL: None. PSYCHIATRY none. NEUROLOGICAL: None. PAST MEDICAL HISTORY: Of obesity, peripheral artery disease, hyperlipidemia, hypertension, diabetes mellitus type 2, coronary artery disease with bypass, CHF, EF 20%, peripheral neuropathy. PAST SURGICAL HISTORY: Appendectomy, cholecystectomy, cardiac cath with stent, tonsillectomy, cervical fusion, left carpal tunnel release, cataract left eye 2 stents in 2016, right leg stent, right hand surgery, umbilical hernia repair. SOCIAL HISTORY: the patient smokes about half a pack a day, more so in the past for over 60 years. Alcohol rarely. FAMILY HISTORY: Of heart problem and osteoarthritis. HOME MEDICATIONS: 1. Glucophage 1000 mg p.o. b.i.d. 2. Aldactone 25 mg a day. 3. Lopressor 12.5 b.i.d. 4. Zaroxolyn 2.5 mg Friday, Friday and Friday. 5. Cozaar 25 mg a day. 6. Lowry 7.5 one tab q.6h p.r.n. 7. Lasix 20 mg b.i.d. 8. Lipitor 80 mg a day. 9. Aspirin 81 mg daily. 10.Lac-Hydrin 12% one topical b.i.d. ALLERGIES: TO PENICILLIN AND NEURONTIN. PHYSICAL EXAMINATION: VITAL SIGNS: On examination vital signs on presentation, temperature 98.3 pulse 83, respiration 18, blood pressure 130/83, pulse ox 100 percent on room air. GENERAL APPEARANCE: Average built, sitting up, not in distress, EYES: Pupils equal, conjunctivae normal. HEENT: External appearance of nose and ears normal. Oral cavity normal. NECK: JVD unable to assess. Mass not palpable. RESPIRATORY effort increased. LUNGS: Decreased breath sounds, mild wheezing. CARDIOVASCULAR 1st and 2nd sounds normal. Eczema. Gross edema present. ABDOMEN: Distended, soft. Liver spleen not palpable lymphatic. PSYCHIATRY: Alert and oriented times three. Mood and affect normal. EXTREMITIES: Edema of both lower extremities. There is also breakdown of skin with some redness and slight oozing. INVESTIGATIONS: White count 3.90, hemoglobin 11.6, platelets 34, potassium 5.2, BUN 21, creatinine 0.81, glucose 267. ASSESSMENT: 1. Possible acute on chronic congestive heart failure from systolic dysfunction EF 20% to 25%, from prior echocardiogram. 2. Bilateral lower extremity cellulitis from breakdown of skin. 3. Diabetes mellitus type 2. 4. Hyperlipidemia. 5. Essential hypertension. 6. Peripheral neuropathy secondary to diabetes. 7. Chronic obstructive pulmonary disease in a current smoker. 8. Coronary artery disease prior history of stent. 9. Chronic nicotine dependence patient is a cigarette smoker. PLAN: Patient is started on IV Lasix. Home medications are resumed. Also put the patient on IV clindamycin. Strict I and Os will be carried out. Consultation to Cardiology and Dr. Richards. Fluid restriction. Care was discussed the patient. Nicotine patch has been given. Copy to Dr. Brown. MMKIKEL / MAJON: [id number] /
[2018-06-10] MEDS: FUROSEMIDE 10 MG/ML 4 ML VIAL IV SCH ×3 (00:26→17:27)
[2018-06-10] MEDS: CLINDAMYCIN 300 MG in DEXTROSE 5% IN WATER 50 ML IVPB SCH ×4 (00:29→08:51)
[2018-06-10] MEDS ORDERED: VANCOMYCIN 1,750 MG in SODIUM CHLORIDE 0.9% 500 ML 500 ML IVPB SCH (06:00)
[2018-06-10 07:28] LABS: Glucose,Whole Blood 184 mg/dL (75-99)
--- NOTE | 2018-06-10 08:39 | XR ---
EXAMINATION TYPE: XR chest 2V DATE OF EXAM: 06/10/2018 COMPARISON: Prior chest x-ray 02/23/2018 HISTORY: Abnormal chest x-ray TECHNIQUE: Frontal and lateral views of the chest are obtained. FINDINGS: Intracardiac defibrillator lead in the right ventricle is again noted. Generator is in lef t pectoral region. No pneumothorax or pleural effusion. Heart size is stable and borderline increased , heart size may be accentuated by rotation. There may be some prominence of interstitium, perihilar vascular indistinctness. Coronary artery calcification and possible stent noted. IMPRESSION: There may be early pulmonary venous hypertension and interstitial edema, correlate. Foll ow-up PA and lateral chest x-ray may be of benefit.
[2018-06-10] MEDS: AMMONIUM LACTATE 12% LOTION 225 GM BTL TOPICAL SCH ×2 (08:51→20:41)
[2018-06-10] MEDS: ASPIRIN 81 MG PO SCH (08:52)
[2018-06-10] MEDS: metFORMIN 500 MG TAB PO SCH ×2 (08:52→20:36)
[2018-06-10] MEDS: ENOXAPARIN 40 MG/0.4 ML SYRINGE SQ SCH (08:52)
[2018-06-10] MEDS: ATORVASTATIN 80 MG TAB PO SCH (08:52)
[2018-06-10] MEDS: LOSARTAN 25 MG TAB PO SCH (08:52)
[2018-06-10] MEDS: METOLAZONE 2.5 MG TAB PO SCH (08:53)
[2018-06-10] MEDS: METOPROLOL TARTRATE 12.5 MG TAB PO SCH ×2 (08:53→20:36)
[2018-06-10] MEDS: SPIRONOLACTONE 25 MG TAB PO SCH (08:53)
[2018-06-10] MEDS: NICOTINE 14MG/24HR PATCH TRANSDERM SCH (08:53)
[2018-06-10] MEDS ORDERED: FUROSEMIDE 80 MG TAB PO SCH (09:00)
--- NOTE | 2018-06-10 09:17 | P.CONS ---
History of Present Illness - Reason for Consult Consult date: 06/10/18 LE cellulitis - History of Present Illness This is a 73-year-old male patient who [facility] under the care of Dr. Baker in the past for a right heel wound that is subsequently healed. He has also been treated at [facility] for tenosynovitis of the right hand which subsequently healed. Patient has been seen in the past for lower extremity cellulitis as well. Patient states he was up [employer] and for the past week he has had lower extremity swelling and tenderness. He states he's had a weight gain of 30 pounds. He denies any shortness of breath. He does state he has orthopnea. No fever no chills. No cough. Patient came into [facility] emergency center for evaluation. He was afebrile, white count was normal at 3.9, creatinine 0.81, lactic acid normal at 1.7. ProBNP was 2230, troponin 0.015. Noted the platelet count was only 34 and is lowest in the past has been 124. Blood sugars been running in the 200s. Patient was started on IV Lasix 40 mg every 8 hours and continued on Aldactone and Zaroxolyn admitted to the [facility] floor where there is a consult for cardiology. Chest x-ray shows early pulmonary venous hypertension and interstitial edema. Echocardiogram has been obtained and report is pending. Regarding blood sugars, patient states that they have been running less than 200 at home. 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 Patient continues to be a smoker of a half pack per day. He is also concerned about small wounds that he has on her lateral fingers. He does not know the cause and denies any known injury. Patient is requesting to be discharged by Friday. Review of Systems All systems: negative Constitutional: Reports fatigue, Reports poor appetite, Reports weakness, Reports weight gain, Denies chills, Denies fever, Denies lethargy Eyes: denies blurred vision, denies pain Ears, nose, mouth and throat: Denies dysphagia, Denies headache, Denies mouth pain, Denies sore throat, Denies vertigo Cardiovascular: Reports dyspnea on exertion, Reports edema, Reports leg edema, Reports orthopnea, Denies chest pain, Denies lightheadedness, Denies shortness of breath, Denies syncope Respiratory: Denies cough, Denies cough with sputum, Denies dyspnea, Denies excessive sputum, Denies hemoptysis, Denies home oxygen, Denies wheezing Gastrointestinal: Reports loss of appetite, Denies abdominal pain, Denies diarrhea, Denies nausea, Denies vomiting Genitourinary: Denies dysuria, Denies urinary frequency Musculoskeletal: Denies frequent falls, Denies myalgias Integumentary: Reports color changes, Reports onychomycosis, Reports wounds, Denies pruritus, Denies rash Neurological: Denies change in mentation, Denies confusion, Denies numbness, Denies seizures, Denies weakness Psychiatric: Denies anxiety, Denies depression Endocrine: Denies fatigue, Denies weight change Past Medical History Past Medical History: Chest Pain / Angina, Heart Failure, Diabetes Mellitus, Hyperlipidemia, Hypertension, Myocardial Infarction (VA), Rheumatoid Arthritis ( RA) Additional Past Medical History / Comment(s): past edema in legs ,2016 rt.foot( heel) wound, bilat leg and hand neuropathy(unable to take gabapentin), tx at [facility]. for rt hand tenosynovitis, poor circulation Last Myocardial Infarction Date:: 2010 History of Any Multi-Drug Resistant Organisms: MRSA, VRE Year Discovered:: 12/08/15 MDRO Source:: RIGHT FOOT MRSA AND VRE Past Surgical History: Appendectomy, Cholecystectomy, Heart Catheterization With Stent, Hernia Repair, Tonsillectomy Additional Past Surgical History / Comment(s): cervical fusion laminactomy , left carpal tunnel release, cataract left eye, HEART STENT X2, 10-16-15 PTBA /RT LEG STENT, rt hand x2 surgery, umb hernia, past picc line Past Anesthesia/Blood Transfusion Reactions: Postoperative Nausea & Vomiting ( PONV) Additional Past Anesthesia/Blood Transfusion Reaction / Comm: .PT STATED AFTER HAND SX HAD DIFFICULTY URINATING AND PAIN MEDS CONSTIPATE HIM. 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 Smoking Status: Current every day smoker Past Alcohol Use History: Rare Additional Past Alcohol Use History / Comment(s): PT STARTED SMOKING AT AGE 14 WORKED UP TO 1.5 PPD BUT HAS CUT DOWN TO 1/2 PPD. He denies any marijuana or illicit drug use. He denies any alcohol use. 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 No pets in the home. Past Drug Use History: None Reported - Past Family History Mother Additional Family Medical History / Comment(s): PT STATED MOM WAS HEALTHY BUT IN OLDER AGE GOT PNE- FROM COMPLICATIONS OF PNE. Father Family Medical History: Osteoarthritis (OA) Additional Family Medical History / Comment(s): ULCERS, HEART PROBLEMS HAD BYPASS,BACK SURGURY Medications and Allergies Home Medications Medication Instructions Recorded Confirmed Type HYDROcodone/APAP 7.5-325MG [[place] 1 tab PO Q6HR PRN 11/07/15 06/09/18 History 7.5-325] Aspirin [Adult Low Dose Aspirin EC] 81 mg PO DAILY 04/10/16 06/09/18 History Atorvastatin [Lipitor] 80 mg PO DAILY 08/06/16 06/09/18 History metFORMIN HCL [Glucophage] 1,000 mg PO BID 08/28/17 06/09/18 History Ammonium Lactate Lotion 1 applic TOPICAL BID applic 09/17/17 06/09/18 Rx [Lac-Hydrin 12% Lotion] Losartan [Cozaar] 25 mg PO DAILY #30 tab 09/17/17 06/09/18 Rx Metolazone [Zaroxolyn] 2.5 mg PO MoWeFr@0900 #30 tab 09/17/17 06/09/18 Rx Furosemide [Lasix] 80 mg PO BID #60 tab 02/01/18 06/09/18 Rx Metoprolol Tartrate [Lopressor] 12.5 mg PO BID #60 tab 02/01/18 06/09/18 Rx Spironolactone [Aldactone] 25 mg PO DAILY #30 tab 02/02/18 06/09/18 Rx Allergies Allergy/AdvReac Type Severity Reaction Status Date / Time Penicillins Allergy Rash/Hives Verified 06/09/18 16:23 gabapentin [From Neurontin] AdvReac Nausea Verified 06/09/18 16:23 Physical Exam Vitals: Vital Signs Temp Pulse Pulse Resp BP BP Pulse Ox 06/10/18 05:58 97.7 F 65 18 119/76 98 06/09/18 23:00 96.8 F L 70 16 125/60 98 06/09/18 20:10 97.2 F L 73 16 130/62 99 06/09/18 20:03 98.8 F 74 18 122/70 98 06/09/18 18:18 98.2 F 69 18 97 06/09/18 15:08 98.3 F 83 18 131/83 100 Intake and Output 06/09/18 06/10/18 06/10/18 22:59 06:59 14:59 Output Total 550 Balance -550 Output: Urine 550 Other: Voiding Method Urinal # Voids 0 # Bowel Movements 0 0 Weight 96.162 kg 110.2 kg Gen: This is a 73-year-old overweight male. He is sitting in a chair at the bedside and appears to be in no acute distress. No respiratory distress is noted. Patient is able to converse in full sentences. HEENT: Head is atraumatic, normocephalic. Pupils equal, round. Sclerae is anicteric. Conjunctiva pink. Mucous members of the mouth are moist. No thrush noted. NECK: Supple. No lymphadenopathy. No thyromegaly. LUNGS: Diminished with a few scattered rhonchi. No intercostal retractions. No accessory muscle usage. HEART: Regular rate and rhythm. No murmur. ABDOMEN: Obese. Soft. Bowel sounds are present. No masses. No tenderness. EXTREMITIES: 1+ bilateral pedal edema. There is a wound on the left between fourth and fifth toes with purulent drainage. No foul odor noted. Physical pretibial areas there is erythema but no warmth. Old scars. Patient has multiple small scars on bilateral fingers. No drainage. NEUROLOGICAL: Patient is awake, alert and oriented x3. Cranial nerves 2 through 12 are grossly intact. Results Results: Laboratory Results WBC 3.9 k/uL (3.8-10.6) 06/09/18 15:50 RBC 3.81 m/uL (4.30-5.90) L 06/09/18 15:50 Hgb 11.6 gm/dL (13.0-17.5) L 06/09/18 15:50 Hct 35.3 % (39.0-53.0) L 06/09/18 15:50 MCV 92.7 fL (80.0-100.0) 06/09/18 15:50 MCH 30.4 pg (25.0-35.0) 06/09/18 15:50 MCHC 32.8 g/dL (31.0-37.0) 06/09/18 15:50 RDW 13.9 % (11.5-15.5) 06/09/18 15:50 Plt Count 34 k/uL (150-450) L 06/09/18 15:50 Neutrophils % 68 % 06/09/18 15:50 Lymphocytes % 23 % 06/09/18 15:50 Monocytes % 4 % 06/09/18 15:50 Eosinophils % 4 % 06/09/18 15:50 Basophils % 0 % 06/09/18 15:50 Neutrophils # 2.6 k/uL (1.3-7.7) 06/09/18 15:50 Lymphocytes # 0.9 k/uL (1.0-4.8) L 06/09/18 15:50 Monocytes # 0.2 k/uL (0-1.0) 06/09/18 15:50 Eosinophils # 0.2 k/uL (0-0.7) 06/09/18 15:50 Basophils # 0.0 k/uL (0-0.2) 06/09/18 15:50 Manual Slide Review Performed 06/09/18 15:50 Poikilocytosis (manual Present 06/09/18 15:50 PT 10.6 sec (9.0-12.0) 06/09/18 23:37 INR 1.1 (<1.2) 06/09/18 23:37 APTT 24.6 sec (22.0-30.0) 06/09/18 23:37 Sodium 140 mmol/L (137-145) 06/09/18 15:50 Potassium 5.2 mmol/L (3.5-5.1) H 06/09/18 15:50 Chloride 111 mmol/L (98-107) H 06/09/18 15:50 Carbon Dioxide 23 mmol/L (22-30) 06/09/18 15:50 Anion Gap 6 mmol/L 06/09/18 15:50 BUN 21 mg/dL (9-20) H 06/09/18 15:50 Creatinine 0.81 mg/dL (0.66-1.25) 06/09/18 15:50 Est GFR (CKD-EPI)AfAm >90 (>60 ml/min/1.73 sqM) 06/09/18 15:50 Est GFR (CKD-EPI)NonAf 88 (>60 ml/min/1.73 sqM) 06/09/18 15:50 Glucose 267 mg/dL (74-99) H 06/09/18 15:50 POC Glucose (mg/dL) 184 mg/dL (75-99) H 06/10/18 07:26 POC Glu Animal Control Specialist ID 06/10/18 07:26 Plasma Lactic Acid Steve 1.7 mmol/L (0.7-2.0) 06/09/18 15:50 Calcium 9.1 mg/dL (8.4-10.2) 06/09/18 15:50 Phosphorus 3.4 mg/dL (2.5-4.5) 06/09/18 15:50 Magnesium 1.9 mg/dL (1.6-2.3) 06/09/18 15:50 Total Bilirubin 1.3 mg/dL (0.2-1.3) 06/09/18 15:50 AST 29 U/L (17-59) 06/09/18 15:50 ALT 32 U/L (21-72) 06/09/18 15:50 Alkaline Phosphatase 87 U/L (38-126) 06/09/18 15:50 Total Creatine Kinase 124 U/L (55-170) 06/09/18 15:50 CK-MB (CK-2) 3.6 ng/mL (0.0-2.4) H 06/09/18 15:50 CK-MB (CK-2) Rel Index 2.9 06/09/18 15:50 Troponin I 0.015 ng/mL (0.000-0.034) 06/09/18 15:50 NT-Pro-B Natriuret Pep 2230 pg/mL 06/09/18 15:50 Total Protein 6.7 g/dL (6.3-8.2) 06/09/18 15:50 Albumin 3.6 g/dL (3.5-5.0) 06/09/18 15:50 CBC & Chem 7: 06/09/18 15:50 06/09/18 15:50 Labs: Abnormal Lab Results - Last 24 Hours (Table) 06/09/18 06/09/18 06/09/18 Range/Units 15:50 15:50 15:50 RBC 3.81 L (4.30-5.90) m/uL Hgb 11.6 L (13.0-17.5) gm/dL Hct 35.3 L (39.0-53.0) % Plt Count 34 L (150-450) k/uL Lymphocytes # 0.9 L (1.0-4.8) k/uL Potassium 5.2 H (3.5-5.1) mmol/L Chloride 111 H (98-107) mmol/L BUN 21 H (9-20) mg/dL Glucose 267 H (74-99) mg/dL POC Glucose (mg/dL) (75-99) mg/dL CK-MB (CK-2) 3.6 H (0.0-2.4) ng/mL 06/09/18 06/10/18 Range/Units 20:49 07:26 RBC (4.30-5.90) m/uL Hgb (13.0-17.5) gm/dL Hct (39.0-53.0) % Plt Count (150-450) k/uL Lymphocytes # (1.0-4.8) k/uL Potassium (3.5-5.1) mmol/L Chloride (98-107) mmol/L BUN (9-20) mg/dL Glucose (74-99) mg/dL POC Glucose (mg/dL) 204 H 184 H (75-99) mg/dL CK-MB (CK-2) (0.0-2.4) ng/mL Assessment and Plan Plan: This is a 73-year-old male patient has been admitted to the hospital for acute on chronic systolic heart failure and is currently on IV Lasix and diuresing well. Patient has small wound on the left foot between toes 4 and 5. No significant lower extremity cellulitis. Lac-Hydrin is in place. We will ask for a wound culture to be obtained. Patient is currently on clindamycin and he has a history of VRE and MRSA. Antibiotics will be switched to daptomycin for now. Further recommendations as patient progresses. Continue supportive care. The above dictated assessment and findings were discussed with Dr. Richards. The impression and plan of care have been directed as dictated. Jadyn Chase nurse practitioner acting as scribe for Dr. Richards.
[2018-06-10] MEDS: DAPTOmycin 500 MG in SODIUM CHLORIDE 0.9% 50 ML IVPB SCH (10:32)
[2018-06-10 11:16] LABS: Anion Gap 7 mmol/L; Blood Urea Nitrogen 19 mg/dL (9-20); Calcium 9.1 mg/dL (8.4-10.2); Carbon Dioxide 25 mmol/L (22-30); Chloride 106 mmol/L (98-107); Glucose 274 mg/dL (74-99); Potassium 4.5 mmol/L (3.5-5.1); Sodium 138 mmol/L (137-145)
[2018-06-10 11:38] LABS: Glucose,Whole Blood 231 mg/dL (75-99)
--- NOTE | 2018-06-10 13:25 | P.CRDCN ---
History of Present Illness History of present illness: This is a pleasant 73-year-old male past medical history significant for coronary artery disease, severe ischemic cardiomyopathy EF of less than 20% , status post AICD, peripheral vascular disease status post revascularization of lower extremities and chronic nicotine dependence. He follows with Dr. Boyle in the office. We have been asked to see him in consultation secondary to lower extremity edema. He states for the previous week his legs have become increasingly red, warm to touch and edematous. He denies symptoms of chest pain , shortness of breath, dizziness or palpitations. He denies PND or orthopnea. He has been started on IV antibiotics per ID. EKG reveals sinus mechanism, right axis deviation and an incomplete right bundle branch block pattern. Chest x-ray reveals evidence of pulmonary venous hypertension and mild interstitial edema. Laboratory data reviewed, WBC 3.9, hemoglobin 11.6, platelets 34, sodium 140, potassium 5.2, creatinine 0.81, magnesium 1.9, cardiac enzymes negative 1, NT proBNP 2230. At the time of my exam: CONSTITUTIONAL: Denies fever. Denies chills. EYES: Denies blurred vision. Denies vision changes. Denies eye pain. EARS, NOSE, MOUTH & THROAT: Denies headache. Denies sore throat. Denies ear pain. CARDIOVASCULAR: Denies chest pain. Denies shortness of breath. Denies orthopnea. Denies PND. Denies palpitations. RESPIRATORY: Denies cough. GASTROINTESTINAL: Denies abdominal pain. Denies diarrhea. Denies constipation. Denies nausea. Denies vomiting. MUSCULOSKELETAL: Denies myalgias. Complains of lower extremity edema and pain. INTEGUMENTARY: Denies pruitis. Denies rash. NEUROLOGIC: Denies numbness. Denies tingling. Denies weakness. PSYCHIATRIC: Denies anxiety. Denies depression. ENDOCRINE: Denies fatigue. Denies weight change. Denies polydipsia. Denies polyurina. GENITOURINARY: Denies burning, hematuria or urgency with micturation. HEMATOLOGIC: Denies history of anemia. Denies bleeding. Blood pressure 119/76 heart rate 65 afebrile maintaining oxygen saturation on room air GENERAL: This is a 73-year-old male in no apparent distress at the time of my examination. HEENT: Head is atraumatic, normocephalic. Pupils are equal, round. Sclerae anicteric. Conjunctivae are clear. Mucous membranes of the mouth are moist. Neck is supple. There is no jugular venous distention. No carotid bruit is heard. LUNGS: Scattered rhonchi noted on the left with clearing after asking him to cough. No wheezes or rales appreciated. No chest wall tenderness is noted on palpation or with deep breathing. HEART: Regular rate and rhythm without murmurs, rubs or gallops. S1 and S2 heard. ABDOMEN: Soft, nontender. Bowel sounds are heard. No organomegaly noted. EXTREMITIES: 2+ bilateral lower extremity edema with significant redness and warm to touch. No calf tenderness noted. VASCULAR: Radial and dorsalis pedis pulses palpated are faint, no evidence of clubbing. NEUROLOGIC: Patient is awake, alert and oriented x3. ASSESSMENT Bilateral lower extremity cellulitis on IV antibiotics Chronic systolic heart failure, doubt in acute exacerbation with no symptoms of shortness of breath, PND or orthopnea. Although NTproBNP is mildly elevated, which appears to be chronic. Ischemic cardiomyopathy AICD in place Diabetes mellitus Hypertension Dyslipidemia Peripheral vascular disease Chronic lower extremity wounds Chronic nicotine dependence PLAN He is currently being given IV lasix due to lower extremity edema that looks to be related to cellulitis. No overt symptoms of heart failure in a patient with known systolic heart failure. Ongoing medical management. Thank you kindly for this consultation. Nurse Practitioner note has been reviewed, I agree with a documented findings and plan of care. Patient was seen and examined. Past Medical History Past Medical History: Chest Pain / Angina, Heart Failure, Diabetes Mellitus, Hyperlipidemia, Hypertension, Myocardial Infarction (SC), Rheumatoid Arthritis ( RA) Additional Past Medical History / Comment(s): past edema in legs ,2016 rt.foot( heel) wound, bilat leg and hand neuropathy(unable to take gabapentin), tx at [facility]. for rt hand tenosynovitis, poor circulation Last Myocardial Infarction Date:: 2010 History of Any Multi-Drug Resistant Organisms: MRSA, VRE Date of last positivie culture/infection: 12/08/15 MDRO Source:: RIGHT FOOT MRSA AND VRE Past Surgical History: Appendectomy, Cholecystectomy, Heart Catheterization With Stent, Hernia Repair, Tonsillectomy Additional Past Surgical History / Comment(s): cervical fusion laminactomy , left carpal tunnel release, cataract left eye, HEART STENT X2, 3 PTBA /RT LEG STENT, rt hand x2 surgery, umb hernia, past picc line Past Anesthesia/Blood Transfusion Reactions: Postoperative Nausea & Vomiting ( PONV) Additional Past Anesthesia/Blood Transfusion Reaction / Comment(s): .PT STATED AFTER HAND SX HAD DIFFICULTY URINATING AND PAIN MEDS CONSTIPATE HIM. 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 Smoking Status: Current every day smoker Past Alcohol Use History: Rare Additional Past Alcohol Use History / Comment(s): PT STARTED SMOKING AT AGE 14 WORKED UP TO 1.5 PPD BUT HAS CUT DOWN TO 1/2 PPD. He denies any marijuana or illicit drug use. He denies any alcohol use. 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 No pets in the home. Past Drug Use History: None Reported - Past Family History Mother Additional Family Medical History / Comment(s): PT STATED MOM WAS HEALTHY BUT IN OLDER AGE GOT PNE- FROM COMPLICATIONS OF PNE. Father Family Medical History: Osteoarthritis (OA) Additional Family Medical History / Comment(s): ULCERS, HEART PROBLEMS HAD BYPASS,BACK SURGURY Medications and Allergies Home Medications Medication Instructions Recorded Confirmed Type HYDROcodone/APAP 7.5-325MG [[place] 1 tab PO Q6HR PRN 11/07/15 06/09/18 History 7.5-325] Aspirin [Adult Low Dose Aspirin EC] 81 mg PO DAILY 04/10/16 06/09/18 History Atorvastatin [Lipitor] 80 mg PO DAILY 08/06/16 06/09/18 History metFORMIN HCL [Glucophage] 1,000 mg PO BID 08/28/17 06/09/18 History Ammonium Lactate Lotion 1 applic TOPICAL BID applic 09/17/17 06/09/18 Rx [Lac-Hydrin 12% Lotion] Losartan [Cozaar] 25 mg PO DAILY #30 tab 09/17/17 06/09/18 Rx Metolazone [Zaroxolyn] 2.5 mg PO MoWeFr@0900 #30 tab 09/17/17 06/09/18 Rx Furosemide [Lasix] 80 mg PO BID #60 tab 02/01/18 06/09/18 Rx Metoprolol Tartrate [Lopressor] 12.5 mg PO BID #60 tab 02/01/18 06/09/18 Rx Spironolactone [Aldactone] 25 mg PO DAILY #30 tab 02/02/18 06/09/18 Rx Allergies Allergy/AdvReac Type Severity Reaction Status Date / Time Penicillins Allergy Rash/Hives Verified 06/09/18 16:23 gabapentin [From Neurontin] AdvReac Nausea Verified 06/09/18 16:23 Physical Exam Vitals: Vital Signs Temp Pulse Pulse Resp BP BP Pulse Ox 06/10/18 05:58 97.7 F 65 18 119/76 98 06/09/18 23:00 96.8 F L 70 16 125/60 98 06/09/18 20:10 97.2 F L 73 16 130/62 99 06/09/18 20:03 98.8 F 74 18 122/70 98 06/09/18 18:18 98.2 F 69 18 97 06/09/18 15:08 98.3 F 83 18 131/83 100 Intake and Output 06/09/18 06/10/18 06/10/18 22:59 06:59 14:59 Output Total 550 Balance -550 Output: Urine 550 Other: Voiding Method Urinal Urinal # Voids 0 # Bowel Movements 0 0 Weight 96.162 kg 110.2 kg Results 06/09/18 15:50 06/10/18 10:06 Cardiac Enzymes 06/09/18 06/09/18 Range/Units 15:50 15:50 AST 29 (17-59) U/L CK-MB (CK-2) 3.6 H (0.0-2.4) ng/mL Troponin I 0.015 (0.000-0.034) ng/mL Coagulation 06/09/18 Range/Units 23:37 PT 10.6 (9.0-12.0) sec APTT 24.6 (22.0-30.0) sec CBC 06/09/18 Range/Units 15:50 WBC 3.9 (3.8-10.6) k/uL RBC 3.81 L (4.30-5.90) m/uL Hgb 11.6 L (13.0-17.5) gm/dL Hct 35.3 L (39.0-53.0) % Plt Count 34 L (150-450) k/uL Comprehensive Metabolic Panel 06/09/18 06/10/18 Range/Units 15:50 10:06 Sodium 140 138 (137-145) mmol/L Potassium 5.2 H 4.5 (3.5-5.1) mmol/L Chloride 111 H 106 (98-107) mmol/L Carbon Dioxide 23 25 (22-30) mmol/L BUN 21 H 19 (9-20) mg/dL Creatinine 0.81 0.93 (0.66-1.25) mg/dL Glucose 267 H 274 H (74-99) mg/dL Calcium 9.1 9.1 (8.4-10.2) mg/dL AST 29 (17-59) U/L ALT 32 (21-72) U/L Alkaline Phosphatase 87 (38-126) U/L Total Protein 6.7 (6.3-8.2) g/dL Albumin 3.6 (3.5-5.0) g/dL Current Medications Generic Name Dose Route Start Last Admin Trade Name Freq PRN Reason Stop Dose Admin Hydrocodone Bitart/Acetaminophen 1 each 06/09/18 20:57 06/09/18 22:17 [place] 7.5-325 PO 1 each Q6HR PRN Administration Pain Aspirin 81 mg 06/10/18 09:00 06/10/18 08:52 Aspirin PO 81 mg DAILY CHEVY Administration Atorvastatin Calcium 80 mg 06/10/18 09:00 06/10/18 08:52 Lipitor PO 80 mg DAILY CHEVY Administration Enoxaparin Sodium 40 mg 06/10/18 09:00 06/10/18 08:52 Lovenox SQ 40 mg DAILY CHEVY Administration Furosemide 40 mg 06/10/18 00:00 06/10/18 08:51 Lasix IV 40 mg Q8HR CHEVY Administration Daptomycin 500 mg/ Sodium 50 mls @ 100 mls/hr 06/10/18 09:00 06/10/18 10:32 Chloride IVPB 100 mls/hr Q24H CHEVY Administration Protocol Lactic Acid 1 applic 06/09/18 21:00 06/10/18 08:51 Lac-Hydrin 12% TOPICAL 1 applic BID CHEVY Administration Losartan Potassium 25 mg 06/10/18 09:00 06/10/18 08:52 Cozaar PO 25 mg DAILY CHEVY Administration Metformin HCl 1,000 mg 06/09/18 21:00 06/10/18 08:52 Glucophage PO 1,000 mg BID CHEVY Administration Metolazone 2.5 mg 06/10/18 09:00 06/10/18 08:53 Zaroxolyn PO 2.5 mg MoWeFr@0900 CHEVY Administration Metoprolol Tartrate 12.5 mg 06/09/18 21:00 06/10/18 08:53 Lopressor PO 12.5 mg BID CHEVY Administration Nicotine 1 patch 06/10/18 09:00 06/10/18 08:53 Habitrol 14mg/24hr Patch TRANSDERM Not Given DAILY CHEVY Spironolactone 25 mg 06/10/18 09:00 06/10/18 08:53 Aldactone PO 25 mg DAILY CHEVY Administration Intake and Output 06/09/18 06/10/18 06/10/18 22:59 06:59 14:59 Output Total 550 Balance -550 Output: Urine 550 Other: Voiding Method Urinal Urinal # Voids 0 # Bowel Movements 0 0 Weight 96.162 kg 110.2 kg 06/09/18 15:50 06/10/18 10:06
--- NOTE | 2018-06-10 14:05 | P.CON ---
Consult Note - . Consult date: 06/10/18 Assessment/Plan:: This is a 73-year-old male patient who [facility] under the care of Dr. Baker in the past for a right heel wound that is subsequently healed. He has also been treated at [facility] for tenosynovitis of the right hand which subsequently healed. Patient has been seen in the past for lower extremity cellulitis as well. Patient states he was up [facility] and for the past week he has had lower extremity swelling and tenderness. He states he's had a weight gain of 30 pounds. He denies any shortness of breath. He does state he has orthopnea. No fever no chills. No cough. Patient came into [facility] emergency center for evaluation. He was afebrile, white count was normal at 3.9, creatinine 0.81, lactic acid normal at 1.7. ProBNP was 2230, troponin 0.015. Noted the platelet count was only 34 and is lowest in the past has been 124. Blood sugars been running in the 200s. Patient was started on IV Lasix 40 mg every 8 hours and continued on Aldactone and Zaroxolyn admitted to the [facility] floor where there is a consult for cardiology. Chest x-ray shows early pulmonary venous hypertension and interstitial edema. Echocardiogram has been obtained and report is pending. Regarding blood sugars, patient states that they have been running less than 200 at home. 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 Patient continues to be a smoker of a half pack per day. He is also concerned about small wounds that he has on her lateral fingers. He does not know the cause and denies any known injury. Patient is requesting to be discharged by Friday. Please see consult note as dictated by nurse practitioner Mrs. Macdonaldy Salvatore. Pleasant 69-year-old male presents to Hospital with concerns to significant increased swelling to lower extremities with orthopnea and no history of cardiomyopathy. Also had a 30 pound weight gain. Patient is now receiving diuresis. We'll utilize local wound care with silver alginate to the open areas and bilateral lower extremity wraps. Elevate while he is at rest.With history we'll utilize daptomycin for now until cultures are available. And then hopefully oral antibiotic therapy will be available to complete the treatment of the cellulitis of the lower extremities pression left where with the extensive edema he now has some full-thickness ulceration and some drainage. It appears to have an injury to the left fifth toe with his severe neuropathy is unable to feel it. Will also be treated.I agree with the evaluation assessment and plan as dictated by PROGRAM CLERK Mrs Jadyn Chase
--- NOTE | 2018-06-10 14:36 | ECHOF ---
Referral Reason:chf MEASUREMENTS -------- HEIGHT: 180.3 cm WEIGHT: 109.8 kg BP: RVIDd: 2.4 cm (< 3.3) IVSd: 1.0 cm (0.6 - 1.1) LVIDd: 6.6 cm (3.9 - 5.3) LVPWd: 0.9 cm (0.6 - 1.1) IVSs: 0.6 cm LVIDs: 6.5 cm LVPWs: 1.0 cm Ao Diam: 3.5 cm (2.0 - 3.7) AV Cusp: 1.6 cm (1.5 - 2.6) LA Diam: 3.4 cm (2.7 - 3.8) MV EXCURSION: 15.965 mm (> 18.000) MV EF SLOPE: 129 mm/s (70 - 150) EPSS: 2.0 cm MV E Abdulaziz: 0.95 m/s MV DecT: 222 ms MV A Abdulaziz: 0.89 m/s MV E/A Ratio: 1.06 AR PHT: 349 ms RAP: 5.00 mmHg RVSP: 10.82 mmHg FINDINGS -------- Sinus rhythm. AICD This was a technically good study. The left ventricle is moderately dilated. There is severe global hypokinesis of LV . Overall left ventricular systolic function is severely impaired with, an EF between 20 - 25 %. The right ventricle is normal in size and function. The left atrial size is normal. The right atrium is normal in size. Aortic valve is trileaflet and is mildly thickened. Trace amount of aortic regurgitation. There is trace mitral regurgitation. Trace tricuspid regurgitation present. The right ventricular systolic pressure, as measured by Dopp ler, is 10.82mmHg. Pulmonic valve appears structurally normal. The aortic root size is normal. The pericardium is normal. CONCLUSIONS -------- 1. Sinus rhythm. 2. AICD 3. This was a technically good study. 4. The left ventricle is moderately dilated. 5. There is severe global hypokinesis of LV . 6. Overall left ventricular systolic function is severely impaired with, an EF between 20 - 25 %. 7. The right ventricle is normal in size and function. 8. The left atrial size is normal. 9. The right atrium is normal in size. 10. Aortic valve is trileaflet and is mildly thickened. 11. Trace amount of aortic regurgitation. 12. There is trace mitral regurgitation. 13. Trace tricuspid regurgitation present. 14. The right ventricular systolic pressure, as measured by Doppler, is 10.82mmHg. 15. Pulmonic valve appears structurally normal. 16. The aortic root size is normal. 17. The pericardium is normal. FUMIGATOR AND STERILIZER: Mirtha Pryor RDCS
[2018-06-10 17:23] LABS: Glucose,Whole Blood 139 mg/dL (75-99)
--- NOTE | 2018-06-10 17:26 | PN ---
PROGRESS NOTE DATE OF SERVICE: 06/10/2018 PRESENTING COMPLAINT: Lower extremity swelling and redness. INTERVAL HISTORY: This patient presented with bilateral lower extremity cellulitis and also possible CHF exacerbation. Edema is still present. On IV Lasix and antibiotics. Patient is a smoker. REVIEW OF SYSTEMS: Done for constitutional, cardiovascular, GI, pulmonary, dermatological; relevant findings as above. CURRENT MEDICATIONS: Reviewed. They include IV daptomycin, IV Lasix, p.o. Zaroxolyn. PHYSICAL EXAMINATION: Temperature 97.7, pulse 65, respiration 18, blood pressure 119/76, pulse ox 98% on room air. GENERAL APPEARANCE: Sitting in a chair, tired-appearing. EYES: Pupils equal. Conjunctivae normal. HEENT: External appearance of nose and ears normal. Oral cavity normal. NECK: JVD unable to assess. Mass not palpable. RESPIRATORY: Effort increased. LUNGS: Decreased breath sounds. Some wheezing. CARDIOVASCULAR: First and second sounds normal. Edema present. DERMATOLOGICAL: Cellulitis and superficial breakdown of skin above the lower extremities. PSYCHIATRY: Alert and oriented x3. Mood and affect normal. INVESTIGATIONS: Chest x-ray, personally reviewed by me, shows venous prominence. Potassium 4.5. ProBNP is 2230. ASSESSMENT: 1. Acute on chronic congestive heart failure exacerbation from systolic dysfunction, ejection fraction 20% to 25%. 2. Bilateral lower extremity cellulitis, slow to respond. 3. Diabetes mellitus, type 2. 4. Hyperlipidemia. 5. Essential hypertension. 6. Peripheral neuropathy secondary to diabetes. 7. Chronic obstructive pulmonary disease in a current smoker. 8. Coronary artery disease with prior history of stent. 9. Chronic nicotine dependence. Patient is a cigarette smoker. PLAN: Keep the patient on IV Lasix. Patient's antibiotic was changed to IV daptomycin. Other medication and treatment plan is to continue. Care was discussed with the patient. Questions were answered. MMODL / IJN: [id number] /
[2018-06-10 21:41] LABS: Glucose,Whole Blood 200 mg/dL (75-99)
[2018-06-11] MEDS: FUROSEMIDE 10 MG/ML 4 ML VIAL IV SCH ×4 (00:57→23:29)
[2018-06-11 07:28] LABS: Glucose,Whole Blood 185 mg/dL (75-99)
[2018-06-11] MEDS: ATORVASTATIN 80 MG TAB PO SCH (08:02)
[2018-06-11] MEDS: LOSARTAN 25 MG TAB PO SCH (08:02)
[2018-06-11] MEDS: METOPROLOL TARTRATE 12.5 MG TAB PO SCH ×2 (08:02→21:03)
[2018-06-11] MEDS: ASPIRIN 81 MG PO SCH (08:02)
[2018-06-11] MEDS: metFORMIN 500 MG TAB PO SCH ×2 (08:02→21:03)
[2018-06-11] MEDS: ENOXAPARIN 40 MG/0.4 ML SYRINGE SQ SCH (08:02)
[2018-06-11] MEDS: SPIRONOLACTONE 25 MG TAB PO SCH (08:03)
[2018-06-11] MEDS: NICOTINE 14MG/24HR PATCH TRANSDERM SCH (08:09)
[2018-06-11] MEDS: DAPTOmycin 500 MG in SODIUM CHLORIDE 0.9% 50 ML IVPB SCH (08:09)
[2018-06-11] MEDS: AMMONIUM LACTATE 12% LOTION 225 GM BTL TOPICAL SCH ×2 (08:17→20:51)
[2018-06-11 11:43] LABS: Glucose,Whole Blood 173 mg/dL (75-99)
[2018-06-11 13:08] LABS: Calcium 9.7 mg/dL (8.4-10.2); Potassium 4.7 mmol/L (3.5-5.1)
[2018-06-11 17:08] LABS: Glucose,Whole Blood 174 mg/dL (75-99)
[2018-06-11] MEDS: INSULIN ASPART 100 UNIT/ML 1 ML 10 ML VIAL SQ SCH ×2 (17:39→21:03)
[2018-06-11 20:51] LABS: Glucose,Whole Blood 176 mg/dL (75-99)
[2018-06-11] MEDS ORDERED: INSULIN ASPART 100 UNIT/ML 1 ML 10 ML VIAL SQ SCH (21:00)
--- NOTE | 2018-06-12 00:23 | PN ---
PROGRESS NOTE DATE OF SERVICE: 06/11/2018 This 73-year-old gentleman with a past medical history of multiple medical problems being followed by Dr. Lombardi. The patient is admitted with bilateral leg cellulitis. Presumptive staph is being grown from the culture. No chest pain. No palpitations. No fever. EXAM: Alert and oriented x3. Pulse is 66, blood pressure 109/56, respiration 16, temperature 98.9, pulse ox 98% on room air. HEENT: Conjunctivae normal. Oral mucosa moist. Neck is no jugular venous distention. No carotid bruit. No lymph node enlargement. Cardiovascular system: S1, S2 muffled. Respiration: Breath sounds diminished in the bases. A few rhonchi. No crackles. Abdomen is soft. Legs: Bilateral leg cellulitis. Nervous system: No focal deficits. LABS: Hemoglobin 11.6, potassium 4.7. Otherwise other labs are noted. Infectious disease is following the patient closely. ASSESSMENT: 1. Bilateral lower extremity cellulitis. 2. Congestive heart failure with chronic systolic dysfunction with ejection fraction 20%-25%. 3. Diabetes mellitus type 2. 4. Hyperlipidemia. 5. Hypertension. 6. 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 7. Chronic obstructive pulmonary disease. 8. History of coronary artery disease, stent. 9. Chronic nicotine dependence. RECOMMENDATIONS AND DISCUSSION: Recommend to continue current medications, management and symptomatic treatment. Otherwise, at this time, continue with antibiotics. Await final ID of the organisms. Continue with antibiotics. Guarded prognosis. Further recommendations to follow. See orders. The patient is keen on going home but however we will await for the final report and continue to monitor. MMODL / IJN: [id number] / MTDD
[2018-06-12] MEDS: HYDROcodone/APAP 7.5-325MG 1 EACH TAB PO PRN (06:15)
[2018-06-12] MEDS: NICOTINE 14MG/24HR PATCH TRANSDERM SCH (07:05)
[2018-06-12] MEDS: ATORVASTATIN 80 MG TAB PO SCH (07:20)
[2018-06-12] MEDS: metFORMIN 500 MG TAB PO SCH ×2 (07:20→21:57)
[2018-06-12] MEDS: METOPROLOL TARTRATE 12.5 MG TAB PO SCH ×2 (07:20→21:57)
[2018-06-12] MEDS: ASPIRIN 81 MG PO SCH (07:20)
[2018-06-12] MEDS: SPIRONOLACTONE 25 MG TAB PO SCH (07:20)
[2018-06-12] MEDS: METOLAZONE 2.5 MG TAB PO SCH (07:20)
[2018-06-12] MEDS: LOSARTAN 25 MG TAB PO SCH (07:20)
[2018-06-12] MEDS: FUROSEMIDE 10 MG/ML 4 ML VIAL IV SCH ×2 (07:20→16:09)
[2018-06-12] MEDS: ENOXAPARIN 40 MG/0.4 ML SYRINGE SQ SCH (07:21)
[2018-06-12] MEDS: AMMONIUM LACTATE 12% LOTION 225 GM BTL TOPICAL SCH ×2 (07:21→22:02)
[2018-06-12] MEDS: DAPTOmycin 500 MG in SODIUM CHLORIDE 0.9% 50 ML IVPB SCH (07:21)
[2018-06-12 07:22] LABS: Glucose,Whole Blood 163 mg/dL (75-99)
[2018-06-12] MEDS: INSULIN ASPART 100 UNIT/ML 1 ML 10 ML VIAL SQ SCH ×4 (08:06→22:02)
[2018-06-12 09:05] LABS: Calcium 9.4 mg/dL (8.4-10.2); Potassium 4.5 mmol/L (3.5-5.1)
[2018-06-12 10:28] LABS: Hemoglobin A1C 6.9 % (4.0-6.0)
[2018-06-12 11:58] LABS: Glucose,Whole Blood 123 mg/dL (75-99)
[2018-06-12 17:19] LABS: Glucose,Whole Blood 112 mg/dL (75-99)
--- NOTE | 2018-06-12 17:28 | PN ---
PROGRESS NOTE DATE OF SERVICE: 06/12/2018 This 73-year-old gentleman who was admitted with bilateral lower extremity cellulitis had Staph growing from the culture. The final ID is pending at this time. The patient also was complaining of some psychiatric symptoms. Patient has IV daptomycin. No chest pain. No palpitations. No fever. On exam, alert and oriented x3. Pulse 65, blood pressure 102/52, respiration 18, temperature 97.7, pulse ox 97% on room air. HEENT: Conjunctivae normal. Oral mucosa moist. NECK: No jugular venous distention. No carotid bruit. No lymph node enlargement. CARDIOVASCULAR SYSTEM: S1, S2 muffled. RESPIRATORY SYSTEM: Breath sounds diminished at the bases. No rhonchi. No crackles. ABDOMEN: Soft, non-tender. No mass palpable. LEGS: Bilateral leg cellulitis, left more than the right. NERVOUS SYSTEM: No focal deficit. LABS: Hemoglobin 11.6 and creatinine is 1.33. ASSESSMENT: 1. Bilateral lower extremity cellulitis. 2. Congestive heart failure with chronic systolic dysfunction, ejection fraction 20% to 25%, with no acute exacerbation. 3. Diabetes mellitus, type 2. 4. Hyperlipidemia. 5. Depression. 6. Hypertension. 7. Peripheral neuropathy secondary to diabetes mellitus, type 2. 8. Chronic obstructive pulmonary disease. 9. History of coronary artery disease and stent. 10.History of chronic nicotine dependence. 11.Increased creatinine with chronic kidney disease, stage III. RECOMMENDATIONS AND DISCUSSION: I recommend to continue current medication, continue with the monitoring, symptomatic treatment. Otherwise at this time I recommend repeat labs. Will also obtain a psychiatric consultation. Continue to monitor. MMODL / IJN: [id number] /
[2018-06-12 20:42] LABS: Glucose,Whole Blood 219 mg/dL (75-99)
[2018-06-13] MEDS: FUROSEMIDE 10 MG/ML 4 ML VIAL IV SCH ×2 (00:36→08:54)
[2018-06-13] MEDS: HYDROcodone/APAP 7.5-325MG 1 EACH TAB PO PRN (02:16)
[2018-06-13 06:59] LABS: Glucose,Whole Blood 172 mg/dL (75-99)
[2018-06-13 07:59] VITALS: PULSE 63; RESP 16
[2018-06-13] MEDS: SPIRONOLACTONE 25 MG TAB PO SCH (08:53)
[2018-06-13] MEDS: ATORVASTATIN 80 MG TAB PO SCH (08:53)
[2018-06-13] MEDS: metFORMIN 500 MG TAB PO SCH (08:53)
[2018-06-13] MEDS: NICOTINE 14MG/24HR PATCH TRANSDERM SCH (08:54)
[2018-06-13] MEDS: ASPIRIN 81 MG PO SCH (08:54)
[2018-06-13] MEDS: METOPROLOL TARTRATE 12.5 MG TAB PO SCH (08:54)
[2018-06-13] MEDS: LOSARTAN 25 MG TAB PO SCH (08:54)
[2018-06-13] MEDS: ENOXAPARIN 40 MG/0.4 ML SYRINGE SQ SCH (08:54)
[2018-06-13] MEDS: INSULIN ASPART 100 UNIT/ML 1 ML 10 ML VIAL SQ SCH ×2 (08:55→13:57)
[2018-06-13] MEDS: DAPTOmycin 500 MG in SODIUM CHLORIDE 0.9% 50 ML IVPB SCH (08:55)
[2018-06-13 10:32] LABS: Basophils % (A) 1 %; Calcium 9.3 mg/dL (8.4-10.2); Eosinophils # (A) 0.3 k/uL (0-0.7); Eosinophils % (A) 5 %; HCT 36.7 % (39.0-53.0); HGB 11.9 gm/dL (13.0-17.5); Lymphocytes # (A) 1.1 k/uL (1.0-4.8); Lymphocytes % (A) 20 %; MCH 30.6 pg (25.0-35.0); MCHC 32.4 g/dL (31.0-37.0); MCV 94.5 fL (80.0-100.0); Mean Platelet Volume 8.9; Monocytes # (A) 0.4 k/uL (0-1.0); Monocytes % (A) 8 %; Neutrophils # (A) 3.5 k/uL (1.3-7.7); Neutrophils % (A) 65 %; Potassium 4.5 mmol/L (3.5-5.1); RBC 3.89 m/uL (4.30-5.90); RDW 13.9 % (11.5-15.5); WBC 5.4 k/uL (3.8-10.6)
[2018-06-13 10:33] LABS: Platelet Count 103 k/uL (150-450)
--- NOTE | 2018-06-13 12:10 | P.CN ---
Psychiatric Consult - . Consult date: 06/13/18 Consult:: 06/13/18 12:07 Chief Complaint : Worsening depression HPI : Mr. Mathews is 73 yo male with h/o depression admitted here secondary to medical issues. Reportedly he has been stressed out over a year. He lost his dog. He has worsening health issues. Hospitalized 6 times this year. 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 He has quite burn out. Endorses severe anhedonia, crying spells, worsening anxiety, sleep difficulties but denies any suicidal ideation. It has been getting worse. He has been treated with Zoloft in past with no much relief. He denies any symptoms of mood swings, psychoses or OCD. PPH : Depression PMH : None Allergies : NKDA Substance Abuse : None MSE : Alert, awake, oriented in all spheres. Poor eye contact. Speech slow in soft tone, Mood dysphoric with congruent affect. Has no suicidal ideation. No symptoms of psychoses. Insight and Judgment poor. A/P : Major Depressive Disorder, Recurrent without psychotic features Will start trial of Remeron 15 mg po qhs. Psychiatry will follow
[2018-06-13 12:13] LABS: Glucose,Whole Blood 226 mg/dL (75-99)
[2018-06-13] MEDS: AMMONIUM LACTATE 12% LOTION 225 GM BTL TOPICAL SCH (13:57)
[2018-06-13] MEDS ORDERED: CEPHALEXIN 500 MG CAP PO STA (14:51)
[2018-06-13 15:44] VITALS: BP 105/66; TEMP 97.4
--- NOTE | 2018-06-13 16:20 | PN ---
PROGRESS NOTE DATE OF SERVICE: 06/13/2018 REASON FOR FOLLOWUP: Discharge antibiotic recommendation. HISTORY OF PRESENT ILLNESS: The patient is a 73-year-old, male who presented at [facility] on 06/09/2018 with chief complaints of bilateral lower extremity swelling and redness and pain. He said this has been going on for a few days before he was in the hospital. The patient did have weeping edema and some superficial ulceration. The patient's pain has been mostly dull aching 3 to 4 out of 10, and no radiation. Subsequently the patient has been evaluated on admission. The patient has been afebrile and his white count was not significantly elevated. The patient did have wound cultures obtained and has been treated with daptomycin. The patient has been insisting on going home today and want to be discharged. I was asked to see the patient for evaluation of discharge antibiotic. The patient did have history of PENICILLIN allergy, but no history of anaphylaxis. REVIEW OF SYSTEMS: Positive point has been mentioned in HPI. Rest of systems has been negative. His past medical and surgical history has been reviewed, no change. Medication reviewed. ALLERGIES: PENICILLIN. No history of anaphylaxis. PHYSICAL EXAMINATION: On examination, his blood pressure 114/53 with a pulse of 63 temperature 96.9. He is 97% on room air. General description is an elderly male lying in bed in no distress. HEENT examination shows no pallor or scleral icterus. Oral mucous membrane is dry. No pharyngeal erythema or thrush. NECK: Trachea central. No thyromegaly. LUNGS: Unlabored breathing, clear to auscultation anteriorly. No wheeze or crackle. HEART: S1, S2. Regular rate and rhythm. ABDOMEN: Soft, no tenderness. LEGS: With some superficial ulceration. No slough tissue. Minimal surrounding swelling and redness. No drainage. NEUROLOGICAL: Patient is awake, alert, oriented x3. Mood and affect normal. LABS: Hemoglobin 11.9, white count 5.4. BUN 32, creatinine 0.99. Wound culture with MSSA. DIAGNOSTIC IMPRESSION AND PLAN: Patient with bilateral lower extremity cellulitis, some superficial ulceration. Culture has been positive for MSSA. The patient did have a history of a PENICILLIN ALLERGY, but no history of anaphylaxis. He will be given a dose of Keflex. did okay with it, he will be able to go home on oral Keflex 500 mg t.i.d. for about a week. Continue local wound care to the legs with an Hector wrap and Aquacel Silver for superficial wound. Continue supportive care. Prescription was sent to pharmacy. JOSEPH / YAKELIN: [id number] /
[2018-06-13] MEDS ORDERED: MIRTAZAPINE 15 MG TAB PO SCH (21:00)
--- NOTE | 2018-06-14 07:38 | DS ---
DISCHARGE SUMMARY FINAL DIAGNOSES: 1. Bilateral lower extremity cellulitis, improved. 2. Congestive heart failure with chronic systolic dysfunction, EF 20-25% with no acute exacerbation. 3. Diabetes type 2. 4. Hyperlipidemia. 5. Depression. 6. Hypertension. 7. 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 8. Chronic obstructive pulmonary disease. 9. History of coronary artery disease, stent. 10.History of increased creatinine with chronic kidney disease, stage 3. The patient will be discharged in stable condition with guarded prognosis. HISTORY OF PRESENT ILLNESS: This 73-year-old gentleman with a past medical history of multiple medical issues, admitted with acute bilateral lower extremity cellulitis, treated in conjunction with ID. The final ID showed MSSA and the patient is being discharged in stable condition with guarded prognosis. On exam, vitals are stable. Cardiac System: S1, S2. Abdomen soft. Neuro System: No focal deficit. MEDICATIONS: 1. Aspirin 81 mg p.o. daily. 2. Lipitor 80 mg daily. 3. Hydrocodone 7.5 q.6h p.r.n. 4. Glucophage 1000 mg b.i.d. 5. Lac-Hydrin 1 application b.i.d. 6. Keflex 500 mg q.8h for 7 days. 7. Lasix 80 mg p.o. b.i.d. 8. Cozaar 25 mg p.o. daily. 9. Zaroxolyn 2.5 mg Friday, Friday, Friday. 10.Lopressor 12.5 mg b.i.d. 11.Aldactone 25 mg daily. Followup labs CBC and BMP with Dr. Brown. Once again, the patient discharged in stable condition with guarded prognosis. MMODL / IJN: [id number] /
== END 2018-06-13 16:58 | disposition home health service (06) | DRG 603 ==
LOC: EC 15:03 → 4MS4W 17:49
PROVIDERS: ADMIT Hospitalist; ATTEND Hospitalist
DX: L03.115 Cellulitis of right lower limb (principal); I50.22 Chronic systolic (congestive) heart failure; I13.0 Hypertensive heart and chronic kidney disease with heart failure and stage 1 through stage 4 chronic kidney disease, or unspecified chronic kidney disease; L03.116 Cellulitis of left lower limb; E11.22 Type 2 diabetes mellitus with diabetic chronic kidney disease; E11.42 Type 2 diabetes mellitus with diabetic polyneuropathy; E11.51 Type 2 diabetes mellitus with diabetic peripheral angiopathy without gangrene; J44.9 Chronic obstructive pulmonary disease, unspecified; E11.621 Type 2 diabetes mellitus with foot ulcer; L97.521 Non-pressure chronic ulcer of other part of left foot limited to breakdown of skin; I25.5 Ischemic cardiomyopathy; M06.9 Rheumatoid arthritis, unspecified; N18.3 Chronic kidney disease, stage 3 (moderate); I45.10 Unspecified right bundle-branch block; A49.01 Methicillin susceptible Staphylococcus aureus infection, unspecified site; I25.10 Atherosclerotic heart disease of native coronary artery without angina pectoris; F32.9 Major depressive disorder, single episode, unspecified; I25.2 Old myocardial infarction; E78.5 Hyperlipidemia, unspecified; E66.9 Obesity, unspecified; Z68.31 Body mass index [BMI] 31.0-31.9, adult; F17.210 Nicotine dependence, cigarettes, uncomplicated; Z71.6 Tobacco abuse counseling; Z79.82 Long term (current) use of aspirin; Z79.84 Long term (current) use of oral hypoglycemic drugs; Z79.899 Other long term (current) drug therapy; Z86.14 Personal history of Methicillin resistant Staphylococcus aureus infection; Z86.19 Personal history of other infectious and parasitic diseases; Z95.5 Presence of coronary angioplasty implant and graft; Z90.49 Acquired absence of other specified parts of digestive tract; Z98.1 Arthrodesis status; Z95.828 Presence of other vascular implants and grafts; Z95.810 Presence of automatic (implantable) cardiac defibrillator; Z98.42 Cataract extraction status, left eye; Z88.0 Allergy status to penicillin; Z88.8 Allergy status to other drugs, medicaments and biological substances; Z82.61 Family history of arthritis; Z83.79 Family history of other diseases of the digestive system; Z82.49 Family history of ischemic heart disease and other diseases of the circulatory system
CPT/HCPCS: 36415; 71046; 80048; 80053; 82550; 82553; 83036; 83605; 83735; 83880; 84100; 84484; 85025; 85610; 85730; 87040; 87070; 87075; 87077; 87186; 87205; 93005; 93306; 96361; 96365; 96366; 96375; 99285

== ENCOUNTER 2018-08-22 23:42 | Inpatient (IN) | payer MEDICARE, OTHER ==
--- NOTE | 2018-08-23 00:18 | ED ---
Weakness HPI - General Chief complaint: Weakness Stated complaint: Weakness Time Seen by Provider: 08/22/18 23:55 Source: patient, EMS, RN notes reviewed, old records reviewed Mode of arrival: EMS Limitations: no limitations - History of Present Illness Initial comments: This is a 73-year-old male the ER for evaluation. Patient resents today for evaluation regarding weakness. Not feeling himself. She states she felt short of breath with increased swelling and edema. Weakness shortness with lying down and shortness of exertion. MD Complaint: generalized weakness, lack of energy -: days(s) Location: generalized Severity: moderate Severity scale (1-10): 5 Consistency: constant Improves with: rest Worsens with: movement, exertion Context: history of similar Associated Symptoms: loss of appetite, shortness of breath - Related Data Home Medications Medication Instructions Recorded Confirmed HYDROcodone/APAP 7.5-325MG [[place] 1 tab PO Q6HR PRN 11/07/15 06/09/18 7.5-325] Aspirin [Adult Low Dose Aspirin EC] 81 mg PO DAILY 04/10/16 06/09/18 Atorvastatin [Lipitor] 80 mg PO DAILY 08/06/16 06/09/18 metFORMIN HCL [Glucophage] 1,000 mg PO BID 08/28/17 06/09/18 Previous Rx's Medication Instructions Recorded Ammonium Lactate Lotion 1 applic TOPICAL BID applic 09/17/17 [Lac-Hydrin 12% Lotion] Losartan [Cozaar] 25 mg PO DAILY #30 tab 09/17/17 Metolazone [Zaroxolyn] 2.5 mg PO MoWeFr@0900 #30 tab 09/17/17 Furosemide [Lasix] 80 mg PO BID #60 tab 02/01/18 Metoprolol Tartrate [Lopressor] 12.5 mg PO BID #60 tab 02/01/18 Spironolactone [Aldactone] 25 mg PO DAILY #30 tab 02/02/18 Cephalexin [Keflex] 500 mg PO Q8HR #21 cap 06/13/18 Allergies Allergy/AdvReac Type Severity Reaction Status Date / Time Penicillins Allergy Rash/Hives Verified 06/09/18 16:23 gabapentin [From Neurontin] AdvReac Nausea Verified 06/09/18 16:23 Review of Systems ROS Statement: Those systems with pertinent positive or pertinent negative responses have been documented in the HPI. ROS Other: All systems not noted in ROS Statement are negative. Past Medical History Past Medical History: Chest Pain / Angina, Heart Failure, Diabetes Mellitus, Hyperlipidemia, Hypertension, Myocardial Infarction ([place]), Rheumatoid Arthritis ( [place]) Additional Past Medical History / Comment(s): past edema in legs ,2016 rt.foot( heel) wound, bilat leg and hand neuropathy(unable to take gabapentin), tx at [facility]. for rt hand tenosynovitis, poor circulation Last Myocardial Infarction Date:: 2010 History of Any Multi-Drug Resistant Organisms: MRSA, VRE Date of last positivie culture/infection: 12/08/15 MDRO Source:: RIGHT FOOT MRSA AND VRE Past Surgical History: Appendectomy, Cholecystectomy, Heart Catheterization With Stent, Hernia Repair, Tonsillectomy Additional Past Surgical History / Comment(s): cervical fusion laminactomy , left carpal tunnel release, cataract left eye, HEART STENT X2, 10-16-15 PTBA /RT LEG STENT, rt hand x2 surgery, umb hernia, past picc line Past Anesthesia/Blood Transfusion Reactions: Postoperative Nausea & Vomiting ( PONV) Additional Past Anesthesia/Blood Transfusion Reaction / Comment(s): .PT STATED AFTER HAND SX HAD DIFFICULTY URINATING AND PAIN MEDS CONSTIPATE HIM. Date of Last Stent Placement:: 12/2013 Type of Cardiac Device: AICD Device Placement Date:: 2014 Past Psychological History: No Psychological Hx Reported Smoking Status: Current every day smoker Past Alcohol Use History: Rare Past Drug Use History: None Reported - Past Family History Mother Additional Family Medical History / Comment(s): PT STATED MOM WAS HEALTHY BUT IN OLDER AGE GOT PNE- FROM COMPLICATIONS OF PNE. Father Family Medical History: Osteoarthritis (OA) Additional Family Medical History / Comment(s): ULCERS, HEART PROBLEMS HAD BYPASS,BACK SURGURY General Exam Limitations: no limitations General appearance: alert, in no apparent distress Head exam: Present: atraumatic, normocephalic, normal inspection Eye exam: Present: normal appearance, PERRL, EOMI. Absent: scleral icterus, conjunctival injection, periorbital swelling ENT exam: Present: normal exam, mucous membranes moist Neck exam: Present: normal inspection. Absent: tenderness, meningismus, lymphadenopathy Respiratory exam: Present: normal lung sounds bilaterally. Absent: respiratory distress, wheezes, rales, rhonchi, stridor Cardiovascular Exam: Present: normal rhythm, bradycardia, normal heart sounds. Absent: systolic murmur, diastolic murmur, rubs, gallop, clicks GI/Abdominal exam: Present: soft, normal bowel sounds. Absent: distended, tenderness, guarding, rebound, rigid Extremities exam: Present: normal inspection, full ROM, normal capillary refill. Absent: tenderness, pedal edema, joint swelling, calf tenderness Back exam: Present: normal inspection Neurological exam: Present: alert, oriented X3, CN II-XII intact Psychiatric exam: Present: normal affect, normal mood Skin exam: Present: warm, dry, intact, normal color. Absent: rash Course Vital Signs 08/22/18 08/23/18 23:44 03:02 Temperature 97 F L 98.9 F Pulse Rate 55 L 60 Respiratory 18 18 Rate Blood Pressure 103/55 113/65 O2 Sat by Pulse 98 98 Oximetry - Reevaluation(s) Reevaluation #1: Medical record is reviewed Patient is without chest pain, no significant shortness of breath currently EKG Findings - EKG Comments: EKG Findings:: EKG shows sinus bradycardia rate of 53, PA 190, QRS 90, QTc 440 Medical Decision Making - Medical Decision Making 73 male the ER for evaluation of weakness low blood pressure compared to normal , normal heart rate. Patient also has evidence of CHF, will not for cardiology evaluation and treatment - Lab Data Result diagrams: 08/23/18 00:01 08/23/18 00:01 Lab Results 08/23/18 08/23/18 08/23/18 Range/Units 00:01 00:01 00:01 WBC 5.7 (3.8-10.6) k/uL RBC 4.41 (4.30-5.90) m/uL Hgb 13.4 (13.0-17.5) gm/dL Hct 39.7 (39.0-53.0) % MCV 90.0 (80.0-100.0) fL MCH 30.4 (25.0-35.0) pg MCHC 33.8 (31.0-37.0) g/dL RDW 15.1 (11.5-15.5) % Plt Count (150-450) k/uL Neutrophils % 67 % Lymphocytes % 17 % Monocytes % 8 % Eosinophils % 6 % Basophils % 0 % Neutrophils # 3.9 (1.3-7.7) k/uL Lymphocytes # 1.0 (1.0-4.8) k/uL Monocytes # 0.4 (0-1.0) k/uL Eosinophils # 0.3 (0-0.7) k/uL Basophils # 0.0 (0-0.2) k/uL PT (9.0-12.0) sec INR (<1.2) APTT (22.0-30.0) sec Sodium 140 (137-145) mmol/L Potassium 4.9 (3.5-5.1) mmol/L Chloride 113 H (98-107) mmol/L Carbon Dioxide 19 L (22-30) mmol/L Anion Gap 8 mmol/L BUN 27 H (9-20) mg/dL Creatinine 1.10 (0.66-1.25) mg/dL Est GFR (CKD-EPI)AfAm 76 (>60 ml/min/1.73 sqM) Est GFR (CKD-EPI)NonAf 66 (>60 ml/min/1.73 sqM) Glucose 113 H (74-99) mg/dL Plasma Lactic Acid Steve (0.7-2.0) mmol/L Calcium 9.2 (8.4-10.2) mg/dL Phosphorus 3.3 (2.5-4.5) mg/dL Magnesium 2.0 (1.6-2.3) mg/dL Total Bilirubin 2.1 H (0.2-1.3) mg/dL AST 30 (17-59) U/L ALT 33 (21-72) U/L Alkaline Phosphatase 90 (38-126) U/L Total Creatine Kinase 94 (55-170) U/L CK-MB (CK-2) 3.3 H (0.0-2.4) ng/mL CK-MB (CK-2) Rel Index 3.5 Troponin I 0.018 (0.000-0.034) ng/mL Total Protein 6.9 (6.3-8.2) g/dL Albumin 3.8 (3.5-5.0) g/dL 08/23/18 08/23/18 Range/Units 00:01 00:01 WBC (3.8-10.6) k/uL RBC (4.30-5.90) m/uL Hgb (13.0-17.5) gm/dL Hct (39.0-53.0) % MCV (80.0-100.0) fL MCH (25.0-35.0) pg MCHC (31.0-37.0) g/dL RDW (11.5-15.5) % Plt Count (150-450) k/uL Neutrophils % % Lymphocytes % % Monocytes % % Eosinophils % % Basophils % % Neutrophils # (1.3-7.7) k/uL Lymphocytes # (1.0-4.8) k/uL Monocytes # (0-1.0) k/uL Eosinophils # (0-0.7) k/uL Basophils # (0-0.2) k/uL PT 11.3 (9.0-12.0) sec INR 1.1 (<1.2) APTT 20.3 L (22.0-30.0) sec Sodium (137-145) mmol/L Potassium (3.5-5.1) mmol/L Chloride (98-107) mmol/L Carbon Dioxide (22-30) mmol/L Anion Gap mmol/L BUN (9-20) mg/dL Creatinine (0.66-1.25) mg/dL Est GFR (CKD-EPI)AfAm (>60 ml/min/1.73 sqM) Est GFR (CKD-EPI)NonAf (>60 ml/min/1.73 sqM) Glucose (74-99) mg/dL Plasma Lactic Acid Steve 1.3 (0.7-2.0) mmol/L Calcium (8.4-10.2) mg/dL Phosphorus (2.5-4.5) mg/dL Magnesium (1.6-2.3) mg/dL Total Bilirubin (0.2-1.3) mg/dL AST (17-59) U/L ALT (21-72) U/L Alkaline Phosphatase (38-126) U/L Total Creatine Kinase (55-170) U/L CK-MB (CK-2) (0.0-2.4) ng/mL CK-MB (CK-2) Rel Index Troponin I (0.000-0.034) ng/mL Total Protein (6.3-8.2) g/dL Albumin (3.5-5.0) g/dL - Radiology Data Radiology results: report reviewed (Chest x-rays positive for CHF), image reviewed Disposition Clinical Impression: CAD (coronary artery disease), Pedal edema, Pulmonary edema, Congestive heart failure with left ventricular systolic dysfunction, CHF (congestive heart failure), Bilateral lower extremity edema, Bradycardia Disposition: ADMITTED IP TO THIS HOSP Condition: Fair Is patient prescribed a controlled substance at d/c from ED?: No
[2018-08-23 00:36] LABS: Albumin 3.8 g/dL (3.5-5.0); Calcium 9.2 mg/dL (8.4-10.2); Phosphorus 3.3 mg/dL (2.5-4.5); Potassium 4.9 mmol/L (3.5-5.1); Total Bilirubin 2.1 mg/dL (0.2-1.3); Total Protein 6.9 g/dL (6.3-8.2)
[2018-08-23 00:39] LABS: INR 1.1 (<1.2); Prothrombin Time 11.3 sec (9.0-12.0)
[2018-08-23 00:45] LABS: Partial Thromboplastin Time 20.3 sec (22.0-30.0)
--- NOTE | 2018-08-23 00:50 | XR ---
EXAMINATION TYPE: XR chest 2V DATE OF EXAM: 08/23/2018 COMPARISON: 06/10/2018 HISTORY: Weakness TECHNIQUE: Frontal and lateral views of the chest are obtained. FINDINGS: There is blunting of the costophrenic angles and more on the left side. There is mild pulm onary vascular congestion. There is left axillary pacemaker with the lead tip in the right ventricle. There are chest leads. IMPRESSION: Pleural effusions and mild congestion consistent with mild chronic heart failure. This i s a change compared to old exam.
[2018-08-23 00:52] LABS: Basophils % (A) 0 %; Eosinophils # (A) 0.3 k/uL (0-0.7); Eosinophils % (A) 6 %; HCT 39.7 % (39.0-53.0); HGB 13.4 gm/dL (13.0-17.5); Lymphocytes % (A) 17 %; MCH 30.4 pg (25.0-35.0); MCHC 33.8 g/dL (31.0-37.0); Mean Platelet Volume 9.7; Monocytes # (A) 0.4 k/uL (0-1.0); Monocytes % (A) 8 %; Neutrophils # (A) 3.9 k/uL (1.3-7.7); Neutrophils % (A) 67 %; RBC 4.41 m/uL (4.30-5.90); RDW 15.1 % (11.5-15.5); WBC 5.7 k/uL (3.8-10.6)
[2018-08-23 00:54] LABS: Creatine Kinase MB 3.3 ng/mL (0.0-2.4); Troponin I 0.018 ng/mL (0.000-0.034)
[2018-08-23 07:12] LABS: Glucose,Whole Blood 117 mg/dL (75-99)
[2018-08-23] MEDS: ENOXAPARIN 40 MG/0.4 ML SYRINGE SQ SCH (08:11)
[2018-08-23 08:43] LABS: Appearance,Urine Clear (Clear); Bilirubin,Urine Negative (Negative); Blood,Urine Trace (Negative); Color,Urine Yellow; Glucose,Urine (UA) Negative (Negative); Hyaline Casts,Urine 4 /lpf (0-2); Ketones,Urine Negative (Negative); Leukocyte Esterase,Urine Negative (Negative); Mucus,Urine Rare /hpf; Nitrite,Urine Negative (Negative); PH, Urine 5.5 (5.0-8.0); Protein,Urine 1+ (Negative); RBC,Urine <1 /hpf (0-5); Specific Gravity,Urine 1.021 (1.001-1.035); Sperm,Urine Occasional /hpf; Urobilinogen,Urine <2.0 mg/dL (<2.0); WBC,Urine <1 /hpf (0-5)
[2018-08-23 11:16] LABS: Glucose,Whole Blood 157 mg/dL (75-99)
--- NOTE | 2018-08-23 12:10 | P.HPIM ---
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 Patient denies chest pain or dyspnea, no coughing. No abdominal pain. He has some loose bowel movement. Also he has poor appetite over this couple weeks. On admission Vitas looks stable currently, labs reviewed including CBC, CMP were were unremarkable. Cardiac enzymes troponin is negative. UA is no suspicious for infection. Chest x-ray showing pleural effusion with mild congestive heart failure. Echocardiogram from 02/2018 showing ejection fraction 20-25% and there is global hypokinesia. Review of Systems CONSTITUTIONAL: No fever, no malaise, no fatigue. HEENT: No recent visual problems or hearing problems. Denied any sore throat. CARDIOVASCULAR: No orthopnea, PND, no palpitations, no syncope. PULMONARY: No shortness of breath, no cough, no hemoptysis. GASTROINTESTINAL: No diarrhea, no nausea, no vomiting, no abdominal pain. Normoactive bowel sounds. NEUROLOGICAL: No headaches, no weakness, no numbness. HEMATOLOGICAL: Denies any bleeding or petechiae. GENITOURINARY: Denies any burning micturition, frequency, or urgency. MUSCULOSKELETAL/RHEUMATOLOGICAL: Denies any joint pain, swelling, or any muscle pain. ENDOCRINE: Denies any polyuria or polydipsia. Past Medical History Past Medical History: Chest Pain / Angina, Heart Failure, Diabetes Mellitus, Hyperlipidemia, Hypertension, Myocardial Infarction ([place]), Rheumatoid Arthritis ( RA) Additional Past Medical History / Comment(s): past edema in legs ,2016 rt.foot( heel) wound, bilat leg and hand neuropathy(unable to take gabapentin), tx at [facility]. for rt hand tenosynovitis, poor circulation Last Myocardial Infarction Date:: 2010 History of Any Multi-Drug Resistant Organisms: MRSA, VRE Date of last positivie culture/infection: 12/08/15 MDRO Source:: RIGHT FOOT MRSA AND VRE Past Surgical History: Appendectomy, Cholecystectomy, Heart Catheterization With Stent, Hernia Repair, Tonsillectomy Additional Past Surgical History / Comment(s): cervical fusion laminactomy , left carpal tunnel release, cataract left eye, HEART STENT X2, 10-16-15 PTBA /RT LEG STENT, rt hand x2 surgery, umb hernia, past picc line Past Anesthesia/Blood Transfusion Reactions: Postoperative Nausea & Vomiting ( PONV) Additional Past Anesthesia/Blood Transfusion Reaction / Comment(s): .PT STATED AFTER HAND SX HAD DIFFICULTY URINATING AND PAIN MEDS CONSTIPATE HIM. 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 Smoking Status: Current every day smoker Past Alcohol Use History: Rare Additional Past Alcohol Use History / Comment(s): PT STARTED SMOKING AT AGE 14 WORKED UP TO 1.5 PPD BUT HAS CUT DOWN TO 1/2 PPD. He denies any marijuana or illicit drug use. He denies any alcohol use. 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 No pets in the home. Past Drug Use History: None Reported - Past Family History Mother Additional Family Medical History / Comment(s): PT STATED MOM WAS HEALTHY BUT IN OLDER AGE GOT PNE- FROM COMPLICATIONS OF PNE. Father Family Medical History: Osteoarthritis (OA) Additional Family Medical History / Comment(s): ULCERS, HEART PROBLEMS HAD BYPASS,BACK SURGURY Medications and Allergies Home Medications Medication Instructions Recorded Confirmed Type HYDROcodone/APAP 7.5-325MG [[place] 1 tab PO Q6HR PRN 11/07/15 08/23/18 History 7.5-325] Aspirin [Adult Low Dose Aspirin EC] 81 mg PO DAILY 04/10/16 08/23/18 History Atorvastatin [Lipitor] 80 mg PO DAILY 08/06/16 08/23/18 History metFORMIN HCL [Glucophage] 1,000 mg PO BID 08/28/17 08/23/18 History Furosemide [Lasix] 80 mg PO DAILY 08/23/18 08/23/18 History Metoprolol Tartrate [Lopressor] 12.5 mg PO DAILY 08/23/18 08/23/18 History Zoloft Unknown Dose 1 tab PO DAILY 08/23/18 08/23/18 History Allergies Allergy/AdvReac Type Severity Reaction Status Date / Time Penicillins Allergy Rash/Hives Verified 08/23/18 08:21 gabapentin [From Neurontin] AdvReac Nausea Verified 08/23/18 08:21 Physical Exam Vitals: Vital Signs Temp Pulse Pulse Resp BP BP Pulse Ox 08/23/18 10:19 98 F 60 16 135/78 99 08/23/18 07:17 96 08/23/18 05:00 97.4 F L 57 L 16 123/61 97 08/23/18 03:02 98.9 F 60 18 113/65 98 08/22/18 23:44 97 F L 55 L 18 103/55 98 Intake and Output 08/22/18 08/23/18 08/23/18 22:59 06:59 14:59 Intake Total 590 Balance 590 Intake: Oral 590 Other: Voiding Method Urinal # Voids 1 Weight 114.5 kg GENERAL: The patient is alert and oriented x3, not in any acute distress. Well developed, well nourished. HEENT: Pupils are round and equally reacting to light. EOMI. No scleral icterus. No conjunctival pallor. Normocephalic, atraumatic. No pharyngeal erythema. No thyromegaly. CARDIOVASCULAR: S1 and S2 present. No murmurs, rubs, or gallops. PULMONARY: Chest is clear to auscultation, no wheezing or crackles. ABDOMEN: Soft, nontender, nondistended, normoactive bowel sounds. No palpable organomegaly. MUSCULOSKELETAL: No joint swelling or deformity. EXTREMITIES: No cyanosis, clubbing, or pedal edema. NEUROLOGICAL: Gross neurological examination did not reveal any focal deficits. SKIN: No rashes. Results CBC & Chem 7: 08/23/18 00:01 08/23/18 00:01 Labs: Abnormal Lab Results - Last 24 Hours (Table) 08/23/18 08/23/18 08/23/18 Range/Units 00:01 00:01 00:01 APTT 20.3 L (22.0-30.0) sec Chloride 113 H (98-107) mmol/L Carbon Dioxide 19 L (22-30) mmol/L BUN 27 H (9-20) mg/dL Glucose 113 H (74-99) mg/dL POC Glucose (mg/dL) (75-99) mg/dL Total Bilirubin 2.1 H (0.2-1.3) mg/dL CK-MB (CK-2) 3.3 H (0.0-2.4) ng/mL Urine Protein (Negative) Urine Blood (Negative) Hyaline Casts (0-2) /lpf Urine Mucus (None) /hpf Urine Sperm (None) /hpf 08/23/18 08/23/18 08/23/18 Range/Units 07:10 08:01 11:15 APTT (22.0-30.0) sec Chloride (98-107) mmol/L Carbon Dioxide (22-30) mmol/L BUN (9-20) mg/dL Glucose (74-99) mg/dL POC Glucose (mg/dL) 117 H 157 H (75-99) mg/dL Total Bilirubin (0.2-1.3) mg/dL CK-MB (CK-2) (0.0-2.4) ng/mL Urine Protein 1+ H (Negative) Urine Blood Trace H (Negative) Hyaline Casts 4 H (0-2) /lpf Urine Mucus Rare H (None) /hpf Urine Sperm Occasional H (None) /hpf Thrombosis Risk Factor Assmnt - Choose All That Apply Any of the Below Risk Factors Present?: Yes Each Factor Represents 1 point: Heart failure (<1month), Obesity (BMI >25), Swollen legs (current) Other Risk Factors: Yes Each Risk Factor Represents 2 Points: Age 61-74 years Thrombosis Risk Factor Assessment Total Risk Factor Score: 5 Thrombosis Risk Factor Assessment Level: High Risk Assessment and Plan Assessment: Acute and chronic systolic congestive heart failure. 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 Plan: This is a pleasant 73 years old male who presents with acute CHF. Continue with IV Lasix for diuresis. Telemetry monitoring and cardiology consults. Check Doppler flow lower extremity. Labs and medication were reviewed.. Continue same treatment. Continue with symptomatic treatment. Resume home medication. Monitor lytes and vitals. DVT and GI prophylaxis. Further recommendations of the clinical course of the patient DVT prophylaxis: Subcutaneous heparin GI Prophylaxis: Pepcid PT/OT: Pending Prognosis is guarded
[2018-08-23] MEDS ORDERED: HEPARIN SODIUM,PORCINE 5,000 UNIT/ML 1 ML VIAL SQ SCH (12:15)
[2018-08-23] MEDS: FUROSEMIDE 10 MG/ML 4 ML VIAL IV SCH ×2 (12:45→21:21)
[2018-08-23] MEDS: SERTRALINE 50 MG TAB PO SCH (12:45)
[2018-08-23] MEDS: ASPIRIN 81 MG PO SCH (12:45)
[2018-08-23] MEDS: INSULIN ASPART 100 UNIT/ML 1 ML 10 ML VIAL SQ SCH ×3 (12:49→21:21)
--- NOTE | 2018-08-23 13:35 | US ---
EXAMINATION TYPE: US venous doppler duplex LE BI DATE OF EXAM: 08/23/2018 1:28 PM COMPARISON: NONE CLINICAL HISTORY: Rule out DVT. bilateral edema SIDE PERFORMED: Bilateral TECHNIQUE: The lower extremity deep venous system is examined utilizing real time linear array sonog keren with graded compression, doppler sonography and color-flow sonography. VESSELS IMAGED: External Iliac Vein (EIV) Common Femoral Vein Deep Femoral Vein Greater Saphenous Vein * Femoral Vein Popliteal Vein Small Saphenous Vein * Proximal Calf Veins (* superficial vessels) Distal FV is not visible bilaterally for compression images, additional color imaging performed. Right Leg: Negative for DVT Left Leg: Negative for DVT IMPRESSION: No evidence for DVT at this time.
[2018-08-23] MEDS: metFORMIN 500 MG TAB PO SCH (17:41)
[2018-08-23 17:43] LABS: Glucose,Whole Blood 123 mg/dL (75-99)
--- NOTE | 2018-08-23 18:56 | CONS ---
CONSULTATION Mr. Mathews is a 73-year-old male who presents through the emergency room and admitted because of symptoms of progressive dyspnea. Patient has a known history of severe cardiomyopathy, has been followed by Dr. Boyle and has an ICD placed by Dr. Bhatia in the past. Over the last few weeks, he has been having symptoms of progressive dyspnea and weight gain. In view of that, he came into the emergency room and subsequently was admitted. The patient left ventricular systolic function is severely impaired and his echocardiogram showed ejection fraction of less than 20% with mild mitral and tricuspid regurgitation. He denies any chest discomfort. He has dyspnea on exertion with minimal activity. He has no clear PND. Nor orthopnea. He denies any palpitation or syncope. He has no discharge from his device. He has a history of peripheral vascular disease as well as coronary artery disease status post percutaneous revascularization and revascularization of his lower extremities. He unfortunately continues to smoke. His activity is limited because of his breathing, but is unchanged. Patient had multiple admissions in the past because of his symptoms of progressive peripheral edema. He had the initial ICD placed in 2013. His coronary risk factors remarkable for the history of smoking, diabetes and hyperlipidemia. MEDICATIONS: Include metoprolol tartrate 12.5 mg daily, metformin 1 gram twice a day, Zoloft, furosemide 80 mg daily, Lipitor 80 mg daily and aspirin once a day. REVIEW OF SYSTEMS: RESPIRATORY SYSTEM: He had dyspnea on exertion. He has some cough but no fever. GI system: He denies any GI bleeding. No peptic ulcer disease. system: No dysuria or hematuria. Nervous system: No history of stroke or seizure. PHYSICAL EXAMINATION: He is a 73-year-old male, alert, oriented, in no distress. Blood pressure 113/73 with a heart rate in 60s. HEAD: Normocephalic. Eyes sclerae anicteric. Neck good upstroke. No bruit. LUNGS: With rales in both bases. HEART: Regular rhythm S1, S2 with systolic murmur at the base. No diastolic murmur. No rub. ABDOMEN: Soft, nontender. Positive bowel sounds. No organomegaly. EXTREMITIES: With chronic skin changes with 2 to +3 edema. LAB DATA: Chest x-ray revealed evidence of congestive heart failure with pleural effusion. He had duplex scan of his lower extremities that was negative for DVT. His EKG revealed sinus bradycardia. Rate of 53, otherwise evidence of QS pattern in the anterior leads. His troponin less than 0.012. NT proBNP is 2250. BUN and creatinine 27 and 1.1. Potassium 4.9. Hemoglobin is 13.4. IMPRESSION: 1. Symptoms of progressive congestive heart failure with systolic dysfunction with severe ischemic cardiomyopathy. 2. Status post ICD. 3. History of coronary artery disease. 4. History of peripheral vascular disease. 5. Chronic tobacco use. 6. Hyperlipidemia. 7. Diabetes mellitus. RECOMMENDATION: From the cardiac standpoint, we will continue present therapy. He has reported that he had episode of bradycardia. His device will be interrogated tomorrow. He will be started on IV Lasix and his renal function will be followed closely. Depending on his progress, further recommendation will be made. I have discussed with him the importance of smoking cessation. Thank you for this consult. We will follow with you. JOSEPH / YAKELIN: [id number] /
[2018-08-23 20:21] LABS: Glucose,Whole Blood 155 mg/dL (75-99)
[2018-08-23] MEDS: ATORVASTATIN 80 MG TAB PO SCH (21:20)
[2018-08-23] MEDS: FAMOTIDINE 20 MG/2 ML VIAL IV SCH (21:20)
[2018-08-24 06:52] LABS: Glucose,Whole Blood 111 mg/dL (75-99)
[2018-08-24 07:31] LABS: Basophils % (A) 1 %; Eosinophils # (A) 0.4 k/uL (0-0.7); Eosinophils % (A) 8 %; HCT 36.4 % (39.0-53.0); HGB 11.9 gm/dL (13.0-17.5); Lymphocytes # (A) 0.8 k/uL (1.0-4.8); Lymphocytes % (A) 16 %; MCH 29.4 pg (25.0-35.0); MCHC 32.8 g/dL (31.0-37.0); MCV 89.8 fL (80.0-100.0); Monocytes # (A) 0.3 k/uL (0-1.0); Monocytes % (A) 7 %; Neutrophils # (A) 3.4 k/uL (1.3-7.7); Neutrophils % (A) 67 %; Platelet Count 132 k/uL (150-450); RBC 4.05 m/uL (4.30-5.90)
[2018-08-24 07:49] LABS: Anion Gap 7 mmol/L; Blood Urea Nitrogen 20 mg/dL (9-20); Calcium 9.3 mg/dL (8.4-10.2); Carbon Dioxide 23 mmol/L (22-30); Chloride 108 mmol/L (98-107); Glucose 105 mg/dL (74-99); Potassium 4.2 mmol/L (3.5-5.1); Sodium 138 mmol/L (137-145)
[2018-08-24] MEDS: FUROSEMIDE 10 MG/ML 4 ML VIAL IV SCH (08:12)
[2018-08-24] MEDS: metFORMIN 500 MG TAB PO SCH ×2 (08:12→17:54)
[2018-08-24] MEDS: ASPIRIN 81 MG PO SCH (08:12)
[2018-08-24] MEDS: FAMOTIDINE 20 MG/2 ML VIAL IV SCH (08:12)
[2018-08-24] MEDS: ENOXAPARIN 40 MG/0.4 ML SYRINGE SQ SCH (08:12)
[2018-08-24] MEDS: SERTRALINE 50 MG TAB PO SCH (08:12)
[2018-08-24] MEDS: INSULIN ASPART 100 UNIT/ML 1 ML 10 ML VIAL SQ SCH ×4 (08:13→20:38)
[2018-08-24 10:52] VITALS: BMI 34.7
[2018-08-24 11:15] LABS: Glucose,Whole Blood 181 mg/dL (75-99)
[2018-08-24] MEDS ORDERED: SPIRONOLACTONE 25 MG TAB PO SCH (11:45)
[2018-08-24 12:04] LABS: Hemoglobin A1C 6.9 % (4.0-6.0)
--- NOTE | 2018-08-24 12:21 | P.PN ---
Subjective This is a pleasant 73-year-old male past medical history significant for coronary artery disease, ischemic cardiomyopathy, systolic heart failure s/ p AICD implantation, peripheral vascular disease, chronic nicotine dependence, dyslipidemia and diabetes mellitus. He follows in the office with Dr. Boyle. He is currently being treated for acute on chronic systolic heart failure with IV lasix 40 mg BID. Overall he states he is feeling mildly better from a shortness of breath aspect however he feels quite fatigued and weak. Blood pressure 129/ 77 heart rate 68 afebrile maintaining oxygen saturation on room air. Laboratory data reviewed, to be VC 5.0, hemoglobin 11.9, platelets 132, sodium 138, potassium 4.2, creatinine 0.87, cardiac enzymes negative 3. Weight today 113.1 kg down 1.4 kg from admission. Fluid balance appears negative although there is no documentation of intake. GENERAL: Well-appearing, well-nourished and in no acute distress. NECK: Supple with mild JVD noted, no thyromegaly. LUNGS: Bibasilar rales, diminished bilaterally, no wheezes or rhonchi noted. Respiration equal and unlabored. HEART: Regular rate and rhythm with systolic ejection murmur at the base, no rubs or gallops. S1 and S2 heard. EXTREMITIES: Normal range of motion, 2+ pitting edema bilaterally with chronic skin changes and scabbing appreciated. Redness bilaterally. No clubbing or cyanosis. Peripheral pulses intact. ASSESSMENT Acute on chronic systolic heart failure History of coronary artery disease Ischemic cardiomyopathy status post AICD History of peripheral vascular disease Dyslipidemia Diabetes mellitus Chronic nicotine dependence PLAN Continue with IV diuresis at 40 mg BID. Check for insurance coverage and start him on Entresto 24/26 mg BID if covered. If not will initiate on AMANUEL or ARB. Initiate on aldactone 25 mg daily. Follow kidney function and electrolytes in the morning. Smoking cessation recommended. Further recommendations to follow based on clinical course. Nurse Practitioner note has been reviewed, I agree with a documented findings and plan of care. Patient was seen and examined. Objective - Vital Signs Vital signs: Vital Signs Temp 97.3 F L 08/24/18 12:03 Pulse 68 08/24/18 12:03 Resp 16 08/24/18 12:03 BP 129/77 08/24/18 12:03 Pulse Ox 98 08/24/18 12:03 Intake & Output 08/23/18 08/24/18 08/24/18 18:59 06:59 18:59 Output Total 1200 1240 Balance -1200 -1240 Weight 113.1 kg 113.1 kg Output: Urine 1200 1240 Other: Voiding Method Urinal Urinal Urinal # Voids 5 - Labs CBC & Chem 7: 08/24/18 06:57 08/24/18 06:57 Labs: Abnormal Lab Results - Last 24 Hours (Table) 08/23/18 08/23/18 08/23/18 Range/Units 06:33 17:41 20:19 RBC (4.30-5.90) m/uL Hgb (13.0-17.5) gm/dL Hct (39.0-53.0) % Plt Count (150-450) k/uL Lymphocytes # (1.0-4.8) k/uL Chloride (98-107) mmol/L Glucose (74-99) mg/dL POC Glucose (mg/dL) 123 H 155 H (75-99) mg/dL Hemoglobin A1c 6.9 H (4.0-6.0) % 08/24/18 08/24/18 08/24/18 Range/Units 06:51 06:57 06:57 RBC 4.05 L (4.30-5.90) m/uL Hgb 11.9 L (13.0-17.5) gm/dL Hct 36.4 L (39.0-53.0) % Plt Count 132 L (150-450) k/uL Lymphocytes # 0.8 L (1.0-4.8) k/uL Chloride 108 H (98-107) mmol/L Glucose 105 H (74-99) mg/dL POC Glucose (mg/dL) 111 H (75-99) mg/dL Hemoglobin A1c (4.0-6.0) % 08/24/18 Range/Units 11:14 RBC (4.30-5.90) m/uL Hgb (13.0-17.5) gm/dL Hct (39.0-53.0) % Plt Count (150-450) k/uL Lymphocytes # (1.0-4.8) k/uL Chloride (98-107) mmol/L Glucose (74-99) mg/dL POC Glucose (mg/dL) 181 H (75-99) mg/dL Hemoglobin A1c (4.0-6.0) % Microbiology - Last 24 Hours (Table) 08/23/18 08:01 Urine Culture - Final Urine,Voided
[2018-08-24] MEDS: SACUBITRIL/VALSARTAN 24 MG-26 MG TABLET PO SCH ×2 (12:57→20:50)
--- NOTE | 2018-08-24 13:42 | XR ---
EXAMINATION TYPE: XR chest 2V DATE OF EXAM: 08/24/2018 COMPARISON: 08/23/2018 TECHNIQUE: PA and lateral views submitted. HISTORY: Weakness FINDINGS: Cardiac device is seen is bilateral consolidation and pleural effusion greater on the left. Coarsened interstitium is seen underlying COPD noted. Atherosclerotic change aorta and arthropathy shoulders. Cannot exclude a tiny loculated pneumothorax or bleb along the lateral margin of the right lung. Find ing is stable dating back to multiple prior exams. Postsurgical change overlying the cervical spine. IMPRESSION: 1. Bilateral consolidation and pleural effusion correlate for CHF. Otherwise consider pneumonia. 2. Findings involving the right midlung laterally may represent bleb rather than tiny loculated pneum othorax. Appears stable dating back to 08/06/1999
[2018-08-24] MEDS: FUROSEMIDE 250 MG in SODIUM CHLORIDE 0.9% 225 ML IVP SCH (13:54)
[2018-08-24 17:07] LABS: Glucose,Whole Blood 112 mg/dL (75-99)
[2018-08-24 20:17] LABS: Glucose,Whole Blood 124 mg/dL (75-99)
[2018-08-24] MEDS: ATORVASTATIN 80 MG TAB PO SCH (20:50)
[2018-08-24] MEDS: SPIRONOLACTONE 25 MG TAB PO SCH (20:50)
[2018-08-24] MEDS: FAMOTIDINE 20 MG TAB PO SCH (20:50)
[2018-08-24] MEDS: HYDROcodone/APAP 7.5-325MG 1 EACH TAB PO PRN (21:56)
[2018-08-25] MEDS: HYDROcodone/APAP 7.5-325MG 1 EACH TAB PO PRN (04:41)
[2018-08-25 06:08] LABS: Glucose,Whole Blood 142 mg/dL (75-99)
[2018-08-25 07:01] LABS: Glucose,Whole Blood 138 mg/dL (75-99)
--- NOTE | 2018-08-25 07:28 | PN ---
PROGRESS NOTE DATE OF SERVICE: 08/24/2018 PRESENTING COMPLAINT: Short of breath. INTERVAL HISTORY: Patient admitted with CHF exacerbation, quite a bit of lower extremity edema, some short of breath. Tolerating his diet, sitting up. REVIEW OF SYSTEMS: Done for constitutional, cardiovascular, GI, pulmonary; relevant findings as above. CURRENT MEDICATIONS: Reviewed that include IV Lasix 40 mg. PHYSICAL EXAMINATION: Temperature 97.3, pulse 58, respirations 16, blood pressure 129/77, pulse ox 98% on room air. GENERAL APPEARANCE: Sitting at the edge of the bed, tired-appearing. EYES: Pupils equal, conjunctivae normal. NECK: JVD raised. Mass not palpable. RESPIRATORY: Effort increased. LUNGS: Diminished breath sounds. CARDIOVASCULAR: Heart sounds regular. Gross edema present. ABDOMEN: Distended, soft. Liver and spleen not palpable. PSYCHIATRY: Alert and oriented x3. Mood and affect normal. Lower extremity evidence of cellulitis of both the legs. INVESTIGATIONS: White count 5, hemoglobin 11.9, potassium 4.2. BUN and creatinine normal. Accu-Cheks are noted. Chest x-ray film personally reviewed by me shows a large left pleural effusion. pulmonary edema. ASSESSMENT: 1. Acute on chronic congestive heart failure exacerbation from systolic dysfunction, ejection fraction 20%-25%, uncontrolled. 2. Bilateral lower extremity cellulitis, acute. 3. Diabetes mellitus type 2 on oral hypoglycemic. 4. Hyperlipidemia. 5. Essential hypertension. 6. Peripheral neuropathy secondary to diabetes. 7. Chronic obstructive pulmonary disease in a smoker. 8. Coronary artery disease with prior history of stent. 9. Chronic nicotine dependence, patient is a cigarette smoker. PLAN: Discussed with Dr. David Chavez from Cardiology. Patient is being started on IV Lasix drip, will also restrict the fluid intake to 1500 mL a day. I's and O's will be strictly followed. Will also check a BNP. Dr. Richards recently saw the patient for his lower extremity cellulitis. Will get his opinion on the same. Care was discussed with the patient. Follow from there. MMODL / IJN: [id number] /
[2018-08-25] MEDS: metFORMIN 500 MG TAB PO SCH ×2 (08:15→17:51)
[2018-08-25] MEDS: ASPIRIN 81 MG PO SCH (08:15)
[2018-08-25] MEDS: INSULIN ASPART 100 UNIT/ML 1 ML 10 ML VIAL SQ SCH ×4 (08:16→21:20)
[2018-08-25] MEDS: SACUBITRIL/VALSARTAN 24 MG-26 MG TABLET PO SCH (08:16)
[2018-08-25] MEDS: FAMOTIDINE 20 MG TAB PO SCH ×2 (08:16→21:23)
[2018-08-25] MEDS: SERTRALINE 50 MG TAB PO SCH (08:16)
[2018-08-25] MEDS: SPIRONOLACTONE 25 MG TAB PO SCH ×2 (08:16→21:23)
[2018-08-25] MEDS: ENOXAPARIN 40 MG/0.4 ML SYRINGE SQ SCH (08:18)
[2018-08-25 09:22] LABS: Anion Gap 8 mmol/L; Blood Urea Nitrogen 18 mg/dL (9-20); Calcium 9.3 mg/dL (8.4-10.2); Carbon Dioxide 28 mmol/L (22-30); Chloride 102 mmol/L (98-107); Glucose 171 mg/dL (74-99); Sodium 138 mmol/L (137-145)
[2018-08-25 11:13] LABS: Glucose,Whole Blood 143 mg/dL (75-99)
[2018-08-25] MEDS: FUROSEMIDE 250 MG in SODIUM CHLORIDE 0.9% 225 ML IVP SCH (12:05)
--- NOTE | 2018-08-25 12:56 | P.PN ---
Subjective This is a pleasant 73-year-old male past medical history significant for coronary artery disease, ischemic cardiomyopathy, systolic heart failure s/ p AICD implantation, peripheral vascular disease, chronic nicotine dependence, dyslipidemia and diabetes mellitus. He follows in the office with Dr. Boyle. He is currently being treated for acute on chronic systolic heart failure with IV lasix infusion. He has diuresed significantly overnight. His weight is down and he is in a negative fluid balance. He states overall he feels mildly better but still feels tired and weak. Blood pressure 136/75 heart rate 71 afebrile maintaining oxygen saturation on room air. Laboratory data reviewed, sodium 138 , potassium 4.0, creatinine 0.9. GENERAL: Well-appearing, well-nourished and in no acute distress. NECK: Supple with mild JVD noted, no thyromegaly. LUNGS: Bibasilar rales, diminished bilaterally, no wheezes or rhonchi noted. Respiration equal and unlabored. HEART: Regular rate and rhythm with systolic ejection murmur at the base, no rubs or gallops. S1 and S2 heard. EXTREMITIES: Normal range of motion, 1+ pitting edema bilaterally with chronic skin changes and scabbing appreciated. Redness bilaterally. No clubbing or cyanosis. Peripheral pulses intact. ASSESSMENT Acute on chronic systolic heart failure History of coronary artery disease Ischemic cardiomyopathy status post AICD History of peripheral vascular disease Dyslipidemia Diabetes mellitus Chronic nicotine dependence PLAN Continue with IV diuresis with Lasix drip for another 24 hours. Entresto is not a covered medication and he cannot afford the copay. Will discontinue and initiate him on an AMANUEL/ARB in 48 hours. Follow kidney function and electrolytes in the morning. Further recommendations to follow based on clinical course. Nurse Practitioner note has been reviewed, I agree with a documented findings and plan of care. Patient was seen and examined. Objective - Vital Signs Vital signs: Vital Signs Temp 97.5 F L 08/25/18 05:59 Pulse 69 08/25/18 09:59 Resp 14 08/25/18 09:59 BP 136/75 08/25/18 05:59 Pulse Ox 98 08/25/18 08:57 Intake & Output 08/24/18 08/25/18 08/25/18 18:59 06:59 18:59 Intake Total 680 600 461.833 Output Total 1125 2525 1600 Balance -445 -1925 -1138.167 Weight 113.1 kg 106 kg Intake: Intake, IV Titration 120 221.833 Amount Furosemide 250 mg In 120 221.833 Sodium Chloride 0.9% 225 ml @ 10 MG/HR 10 mls/hr IVP .Q24H [facility] Rx#: [id number] Oral 680 480 240 Output: Urine 1125 2525 1600 Other: Voiding Method Urinal Urinal Urinal Diaper # Voids 1 - Labs CBC & Chem 7: 08/24/18 06:57 08/25/18 08:31 Labs: Abnormal Lab Results - Last 24 Hours (Table) 08/24/18 08/24/18 08/25/18 Range/Units 17:06 20:16 06:06 Glucose (74-99) mg/dL POC Glucose (mg/dL) 112 H 124 H 142 H (75-99) mg/dL 08/25/18 08/25/18 08/25/18 Range/Units 06:59 08:31 11:12 Glucose 171 H (74-99) mg/dL POC Glucose (mg/dL) 138 H 143 H (75-99) mg/dL Microbiology - Last 24 Hours (Table) 08/23/18 08:01 Urine Culture - Final Urine,Voided
[2018-08-25 17:11] LABS: Glucose,Whole Blood 120 mg/dL (75-99)
[2018-08-25] MEDS: ceFAZolin IN SWFI 2 GM/20 ML SYRINGE IVP SCH ×2 (17:52→23:33)
[2018-08-25 20:15] LABS: Glucose,Whole Blood 134 mg/dL (75-99)
[2018-08-25] MEDS: ATORVASTATIN 80 MG TAB PO SCH (21:22)
[2018-08-25] MEDS: LANOLIN CREAM 5 GM TUBE TOPICAL SCH (21:25)
[2018-08-25] MEDS: NYSTATIN 100,000UNIT/GM CREAM 30 GM TUBE TOPICAL SCH (21:38)
--- NOTE | 2018-08-25 22:13 | PN ---
PROGRESS NOTE DATE OF SERVICE: 08/25/2018. PRESENTING COMPLAINT: Short of breath. INTERVAL HISTORY: The patient admitted with CHF exacerbation on a Lasix drip, over 3 L of negative fluid balance. Edema started to come down. Breathing is somewhat better. Also being treated for chronic lower extremity cellulitis. Did tolerate some diet. REVIEW OF SYSTEMS: Done for constitutional, cardiovascular, GI, pulmonary; relevant findings as above. CURRENT MEDICATIONS: Reviewed that include IV Lasix drip, IV Ancef, and Aldactone. PHYSICAL EXAMINATION: VITAL SIGNS: Temperature 97.7, pulse 69, respiration 17, blood pressure 110/66, pulse ox 98% on room air. GENERAL APPEARANCE: Sitting at the edge of bed, tired. EYES: Pupils equal. Conjunctivae normal. NECK: JVD not raised. Mass not palpable. RESPIRATORY: Effort increased. LUNGS: Diminished breath sounds. CARDIOVASCULAR: Heart sounds irregular. Gross edema present. ABDOMEN: Distended, soft. Liver and spleen not palpable. PSYCHIATRY: Alert and oriented x3. Mood and affect normal. EXTREMITIES: Lower extremity cellulitis of both the legs. INVESTIGATIONS: Potassium 4, BUN 18, creatinine 0.90. Accu-Cheks are noted. ASSESSMENT: 1. Acute on chronic congestive heart failure exacerbation from systolic dysfunction, ejection fraction 20-25 percent, slow to respond. 2. Bilateral lower extremity cellulitis, acute on chronic. 3. Diabetes mellitus type 2 on oral hypoglycemic. 4. Hyperlipidemia. 5. Essential hypertension. 6. Peripheral neuropathy secondary to diabetes. 7. Chronic obstructive pulmonary disease in a smoker. 8. Coronary artery disease prior history of stent. 9. Chronic nicotine dependence, patient is a cigarette smoker. PLAN: Continue with current treatment plan. Patient is diuresing well. Maybe at least 24-48 hours. The patient is concerned about his sick at home. Would really like to go home the day after tomorrow. I did explain to him at length that I will do my best to make sure that the patient is safe to move before I make that final determination. Continue with current treatment plan. Follow electrolytes closely. MMODL / IJN: [id number] /
--- NOTE | 2018-08-26 01:31 | CONS ---
CONSULTATION DATE OF SERVICE: 08/25/2018. REASON FOR CONSULTATION: Lower extremity cellulitis. HISTORY OF PRESENT ILLNESS: The patient is a 73-year-old male who presented to the ER at [facility] on 08/22/2018 with chief complaints of generalized weakness, not feeling well, increasing shortness of breath and leg swelling. The patient's symptoms has been going on for about a week before he presented to the hospital with increasing shortness of breath. Initially on examination, when I transferred the patient also had significant swelling in both legs with associated redness mostly significant in the left leg. The patient did not have any skin breakdown or any drainage. Denies any high-grade fever or chills. With these symptoms, the patient has been evaluated by the ER physician. On arrival to the ER, patient did not have any high-grade fever and his white count has been normal as well. The patient did have a UA that was negative. A chest x-ray showing pleural effusion and mild congestion consistent with mild chronic heart failure. Lower extremity Doppler was negative for DVT. Infectious disease was consulted for concern for condition regarding cellulitis, especially in the left leg being more red to the right leg and antibiotic therapy. REVIEW OF SYSTEMS: Positive points have been mentioned in HPI. Rest of the system has been negative. PAST MEDICAL HISTORY: Angina, heart failure, hypertension, hyperlipidemia, diabetes mellitus, rheumatoid arthritis, history of right leg wound, previous history of MRSA and VRE infection. PAST SURGICAL HISTORY: Appendectomy, cholecystectomy, PTCA with stent, hernia repair and tonsillectomy. SOCIAL HISTORY: Significant history of smoking, smoked over 1/2 pack a day. Denies drinking or drug use. FAMILY HISTORY: Mother from complication of pneumonia. Father history of osteoarthritis and heart problems. ALLERGIES: PENICILLIN with a rash. No history of anaphylaxis and Neurontin. MEDICATIONS: Medications include the patient is currently on [place], aspirin, Lipitor, Lovenox, Pepcid, Lasix drip, NovoLog, Glucophage and Zoloft. EXAMINATION: Blood pressure is 124/51 with a pulse of 60 , temperature 97.8. He is 97% on room air. General description is an elderly male up in the bed in no distress. No tachypnea or accessory muscles of respiration use. HEENT: Shows no pallor or scleral icterus. Oral mucosa membranes is dry. No pharyngeal erythema or thrush. Neck: Trachea central. No thyromegaly. Lungs unlabored breathing, decreased breath sounds in the bases. No wheeze, heart S1, S2. Regular rate and rhythm. Abdomen soft, no tenderness. Bilateral legs did have 2+ edema feet, minimal redness on the left leg, slightly warm. No skin breakdown. No drainage. The patient did have evidence of extensive cutaneous candidiasis . Neurological: The patient is awake, alert, oriented. Mood and affect normal. LABS: Hemoglobin is 11.8, white count 5.0, BUN of 18, creatinine 0.90. Electrolytes have been normal. Urine culture negative. No blood culture. Lower extremity Doppler negative for DVT. DIAGNOSTIC IMPRESSION AND PLAN: Patient with bilateral lower extremity wound swelling and minimal redness. This patient did have evidence of left lower lobe likely concerning for a mild cellulitis and likely from a gram-positive skin dax such as strep, less likely gram-negative infection or MRSA. PLAN: 1. [place] the area of redness. 2. Hector wrap from just above to below the knee to keep the swelling down. 3. Cefazolin 2 g q.8 hours. 4. Mycostatin cream in between the toes twice a day. 5. We will follow up on clinical condition to further adjust medication if needed. Thank you for this consultation. Will follow this patient with you. MMODL / IJN: [id number] /
[2018-08-26 07:06] LABS: Glucose,Whole Blood 143 mg/dL (75-99)
[2018-08-26] MEDS: ENOXAPARIN 40 MG/0.4 ML SYRINGE SQ SCH (08:02)
[2018-08-26] MEDS: INSULIN ASPART 100 UNIT/ML 1 ML 10 ML VIAL SQ SCH ×4 (08:02→21:22)
[2018-08-26] MEDS: SPIRONOLACTONE 25 MG TAB PO SCH ×2 (08:02→21:17)
[2018-08-26] MEDS: SERTRALINE 50 MG TAB PO SCH (08:02)
[2018-08-26] MEDS: metFORMIN 500 MG TAB PO SCH ×2 (08:02→17:42)
[2018-08-26] MEDS: ASPIRIN 81 MG PO SCH (08:02)
[2018-08-26] MEDS: FAMOTIDINE 20 MG TAB PO SCH ×2 (08:02→21:15)
[2018-08-26] MEDS: ceFAZolin IN SWFI 2 GM/20 ML SYRINGE IVP SCH ×3 (08:04→23:56)
[2018-08-26] MEDS: NYSTATIN 100,000UNIT/GM CREAM 30 GM TUBE TOPICAL SCH ×2 (08:04→21:23)
[2018-08-26] MEDS: LANOLIN CREAM 5 GM TUBE TOPICAL SCH ×2 (08:04→21:23)
--- NOTE | 2018-08-26 10:17 | P.PN ---
Subjective This is a pleasant 73-year-old male past medical history significant for coronary artery disease, ischemic cardiomyopathy, systolic heart failure s/ p AICD implantation, peripheral vascular disease, chronic nicotine dependence, dyslipidemia and diabetes mellitus. He follows in the office with Dr. Boyle. He is currently being treated for acute on chronic systolic heart failure with IV lasix infusion. He has diuresed significantly overnight. His weight is down and he is in a negative fluid balance. He states he is feeling much better in the last 24 hours. He is much more talkative and less short of breath as well. Laboratory data is pending. Blood pressure 106/64 heart rate 73. Currently maintained on aspirin 81 mg daily, atorvastatin 80 mg daily, lasix drip at 10 mg and aldactone 50 mg BID. GENERAL: Well-appearing, well-nourished and in no acute distress. NECK: Supple with mild JVD noted, no thyromegaly. LUNGS: Bibasilar rales, diminished bilaterally, no wheezes or rhonchi noted. Respiration equal and unlabored. HEART: Regular rate and rhythm with systolic ejection murmur at the base, no rubs or gallops. S1 and S2 heard. EXTREMITIES: Normal range of motion, 1+ pitting edema bilaterally with bilateral evangelista wraps in place. No clubbing or cyanosis. Peripheral pulses intact. ASSESSMENT Acute on chronic systolic heart failure History of coronary artery disease Ischemic cardiomyopathy status post AICD History of peripheral vascular disease Dyslipidemia Diabetes mellitus Chronic nicotine dependence PLAN Lasix infusion can be discontinued and transitioned to lasix 40 mg IV BID and then tomorrow to PO. Entresto is not a covered medication and he cannot afford the copay. Initiate on lisinopril 2.5 mg starting tomorrow. Follow kidney function and electrolytes in the morning. Resume lopressor 12.5 mg daily. Further recommendations to follow based on clinical course. Suspect he should be able to be discharged home tomorrow if he continues to progress. The above impression and plan of care have been discussed and directed by the signing physician. Jazlyn Palm, nurse practitioner, acting as scribe for signing physician. Objective - Vital Signs Vital signs: Vital Signs Temp 98.3 F 08/26/18 05:38 Pulse 73 08/26/18 05:38 Resp 18 08/26/18 05:38 BP 106/64 08/26/18 05:38 Pulse Ox 95 08/26/18 05:38 Intake & Output 08/25/18 08/26/18 08/26/18 18:59 06:59 18:59 Intake Total 1181.833 440 Output Total 2500 2300 Balance -1318.167 -1860 Weight 101.5 kg Intake: Intake, IV Titration 221.833 Amount Furosemide 250 mg In 221.833 Sodium Chloride 0.9% 225 ml @ 10 MG/HR 10 mls/hr IVP .Q24H [facility] Rx#: [id number] Oral 960 440 Output: Urine 2500 2300 Other: Voiding Method Urinal Urinal Urinal Diaper Diaper Diaper # Voids 1 1 - Labs CBC & Chem 7: 08/24/18 06:57 08/25/18 08:31 Labs: Abnormal Lab Results - Last 24 Hours (Table) 08/25/18 08/25/18 08/25/18 Range/Units 11:12 17:10 20:13 POC Glucose (mg/dL) 143 H 120 H 134 H (75-99) mg/dL 08/26/18 Range/Units 07:05 POC Glucose (mg/dL) 143 H (75-99) mg/dL
[2018-08-26 10:31] LABS: Calcium 9.9 mg/dL (8.4-10.2); Magnesium 1.3 mg/dL (1.6-2.3); Potassium 4.5 mmol/L (3.5-5.1)
[2018-08-26 11:54] LABS: Glucose,Whole Blood 176 mg/dL (75-99)
[2018-08-26] MEDS: METOPROLOL TARTRATE 12.5 MG TAB PO SCH (12:32)
[2018-08-26] MEDS ORDERED: Magnesium Replacement Protocol 1 EACH MISC MISCELLANE PRN (13:43)
[2018-08-26] MEDS: HYDROcodone/APAP 7.5-325MG 1 EACH TAB PO PRN (14:34)
[2018-08-26] MEDS: MAGNESIUM SULFATE-D5W PMX 1 GM in DEXTROSE/WATER 1 100ML.BAG IVPB SCH ×3 (14:50→17:14)
[2018-08-26 16:58] LABS: Glucose,Whole Blood 148 mg/dL (75-99)
--- NOTE | 2018-08-26 17:35 | PN ---
PROGRESS NOTE DATE OF SERVICE: 08/26/2018. REASON FOR FOLLOW UP: Bilateral lower extremity cellulitis and . INTERVAL HISTORY: The patient is currently afebrile. He is breathing more comfortably. Denies any chest pain. No cough. No abdominal pain or any pain to the leg area. PHYSICAL EXAMINATION: Blood pressure is 119/72 with a pulse of 80, temperature 98. He is 93% on room air. General description is an elderly male up in the bed in no distress. Respiratory system: Unlabored breathing. Clear to auscultation anteriorly. Heart S1, S2. Regular rate and rhythm. Abdomen soft, no tenderness. Legs are currently wrapped up. No obvious drainage on the dressing. LABS: BUN of 19, creatinine 1.10. Urine culture has been negative. DIAGNOSTIC IMPRESSION AND PLAN: 1. Patient bilateral lower extremity cellulitis. The patient admitted to the hospital with acute CHF exacerbation. The patient is currently covered on cefazolin that will be transitioned to a short course of oral Keflex on discharge along with Hector wrap to keep the swelling down. 2. local care with nystatin cream. 3. Continue supportive care. MMODL / IJN: [id number] /
--- NOTE | 2018-08-26 20:17 | PN ---
PROGRESS NOTE DATE OF SERVICE: 08/26/2018. PRESENTING COMPLAINT: Tired. INTERVAL HISTORY: Patient presented with CHF exacerbation, had been on Lasix drip until this morning. Close to 8 L in negative fluid balance. Switched to IV bolus by Cardiology. Also being treated for lower extremity cellulitis. Overall feeling better. Tolerating a diet. REVIEW OF SYSTEMS: Done for constitutional, cardiovascular, GI, pulmonary; relevant findings as above. CURRENT MEDICATIONS: Reviewed that include IV Ancef and Lasix 40 mg q.12, Zestril and Aldactone. PHYSICAL EXAMINATION: VITAL SIGNS: Temperature 98, pulse 80, respirations 16, blood pressure 119/72, pulse ox 93% on room air. GENERAL APPEARANCE: Sitting edge of bed, looking better. EYES: Pupils equal. Conjunctivae normal. NECK: JVD not raised. Mass not palpable. RESPIRATORY: Effort increased. LUNGS: Improved air entry. CARDIOVASCULAR: Heart sounds irregular. Decreased edema. ABDOMEN: Distended, soft. Liver and spleen not palpable. PSYCHIATRY: Alert and oriented times three. Mood and affect normal. EXTREMITIES: Lower extremity with dressing and Hector wraps in place. INVESTIGATIONS: Potassium 4.5, BUN 19, creatinine 1.10. ASSESSMENT: 1. Acute on chronic congestive heart failure exacerbation from systolic dysfunction EF 20 to 25% with improvement. 2. Bilateral lower extremity cellulitis, acute on chronic. 3. Diabetes mellitus type 2 on oral hypoglycemic. 4. Hyperlipidemia. 5. Essential hypertension. 6. Peripheral neuropathy secondary to diabetes. 7. Chronic obstructive pulmonary disease in a smoker. 8. Coronary artery disease with prior history of stent. 9. Chronic nicotine dependence, patient is a cigarette smoker. PLAN: Care was discussed the patient. Hopefully, patient will be switched to oral antibiotic tomorrow. Also follow with ID recommendations. MMODL / IJN: [id number] /
[2018-08-26 20:45] LABS: Glucose,Whole Blood 137 mg/dL (75-99)
[2018-08-26] MEDS: ATORVASTATIN 80 MG TAB PO SCH (21:15)
[2018-08-26] MEDS: FUROSEMIDE 10 MG/ML 4 ML VIAL IV SCH (23:55)
[2018-08-27 05:06] VITALS: RESP 18; TEMP 97.8
[2018-08-27 07:00] LABS: Glucose,Whole Blood 127 mg/dL (75-99)
[2018-08-27 08:32] LABS: Calcium 9.7 mg/dL (8.4-10.2); Magnesium 1.8 mg/dL (1.6-2.3); Potassium 4.2 mmol/L (3.5-5.1)
[2018-08-27] MEDS: INSULIN ASPART 100 UNIT/ML 1 ML 10 ML VIAL SQ SCH ×2 (08:48→13:06)
[2018-08-27] MEDS: FUROSEMIDE 10 MG/ML 4 ML VIAL IV SCH (08:53)
[2018-08-27] MEDS: FAMOTIDINE 20 MG TAB PO SCH (08:54)
[2018-08-27] MEDS: ceFAZolin IN SWFI 2 GM/20 ML SYRINGE IVP SCH (08:54)
[2018-08-27] MEDS: METOPROLOL TARTRATE 12.5 MG TAB PO SCH (08:54)
[2018-08-27] MEDS: SPIRONOLACTONE 25 MG TAB PO SCH (08:54)
[2018-08-27] MEDS: ASPIRIN 81 MG PO SCH (08:54)
[2018-08-27] MEDS: metFORMIN 500 MG TAB PO SCH (08:54)
[2018-08-27] MEDS: NYSTATIN 100,000UNIT/GM CREAM 30 GM TUBE TOPICAL SCH (08:55)
[2018-08-27] MEDS: SERTRALINE 50 MG TAB PO SCH (08:59)
[2018-08-27] MEDS ORDERED: LISINOPRIL 2.5 MG TAB PO SCH (09:00)
[2018-08-27] MEDS: ENOXAPARIN 40 MG/0.4 ML SYRINGE SQ SCH (09:19)
[2018-08-27 09:32] LABS: Glucose,Whole Blood 156 mg/dL (75-99)
[2018-08-27 10:43] VITALS: BP 108/60; PULSE 72
[2018-08-27 10:54] LABS: Glucose,Whole Blood 154 mg/dL (75-99)
--- NOTE | 2018-08-27 12:07 | P.PN ---
Subjective This is a pleasant 73-year-old male past medical history significant for coronary artery disease, ischemic cardiomyopathy, systolic heart failure s/ p AICD implantation, peripheral vascular disease, chronic nicotine dependence, dyslipidemia and diabetes mellitus. He follows in the office with Dr. Boyle. He is currently being treated for acute on chronic systolic heart failure. Lasix infusion was transitioned to IVP yesterday. He is continuing to have a negative fluid balance daily. Weight is down significant since admission. He overall feels much better and lower extremity edema has greatly improved with trace residual. Blood pressure 108/60 heart rate 72 afebrile maintaining oxygen saturation on room air. Laboratory data reviewed, sodium 139, potassium 4.2, creatinine 1.04 and magnesium 1.8. GENERAL: Well-appearing, well-nourished and in no acute distress. NECK: Supple with mild JVD noted, no thyromegaly. LUNGS: Clear to auscultation, no wheezes, rhonchi or rales, diminished bilaterally. Respiration equal and unlabored. HEART: Regular rate and rhythm with systolic ejection murmur at the base, no rubs or gallops. S1 and S2 heard. EXTREMITIES: Normal range of motion, trace pitting edema bilaterally with bilateral evangelista wraps in place. No clubbing or cyanosis. Peripheral pulses intact. ASSESSMENT Acute on chronic systolic heart failure History of coronary artery disease Ischemic cardiomyopathy status post AICD History of peripheral vascular disease Dyslipidemia Diabetes mellitus Chronic nicotine dependence PLAN Transition to PO lasix 60 mg BID. Stable for discharge home from a cardiac perspective on current medication regimen. Low salt diet and smoking cessation discussed at length. Follow up with Dr. Boyle in 2 weeks. Continue to check and record daily weights, if more than a 3 lb fluctuation he has been advised to call Dr. Boyle and get appointment with him or his CLINICAL EDUCATION ACADEMIC COORDINATOR sooner. BMP in 5 days. The above impression and plan of care have been discussed and directed by the signing physician. Jazlyn Palm, nurse practitioner, acting as scribe for signing physician. Objective - Vital Signs Vital signs: Vital Signs Temp 97.8 F 08/27/18 04:00 Pulse 72 08/27/18 10:00 Resp 18 08/27/18 10:00 BP 108/60 08/27/18 10:00 Pulse Ox 97 08/27/18 04:00 Intake & Output 08/26/18 08/27/18 08/27/18 18:59 06:59 18:59 Intake Total 680 1600 Output Total 900 150 Balance -220 1450 Weight 102.6 kg 101.6 kg Intake: Oral 680 1600 Output: Urine 900 150 Other: Voiding Method Urinal Urinal Diaper Diaper - Labs CBC & Chem 7: 08/24/18 06:57 08/27/18 07:27 Labs: Abnormal Lab Results - Last 24 Hours (Table) 08/26/18 08/26/18 08/27/18 Range/Units 16:57 20:43 06:59 Carbon Dioxide (22-30) mmol/L Glucose (74-99) mg/dL POC Glucose (mg/dL) 148 H 137 H 127 H (75-99) mg/dL 08/27/18 08/27/18 08/27/18 Range/Units 07:27 09:31 10:52 Carbon Dioxide 33 H (22-30) mmol/L Glucose 122 H (74-99) mg/dL POC Glucose (mg/dL) 156 H 154 H (75-99) mg/dL
[2018-08-27] MEDS ORDERED: FUROSEMIDE 20 MG TAB PO SCH ×2 (16:00)
--- NOTE | 2018-08-27 16:24 | PN ---
PROGRESS NOTE DATE OF SERVICE: 08/27/2018. REASON FOR FOLLOWUP: Bilateral lower extremity cellulitis. INTERVAL HISTORY: The patient is currently afebrile. He is breathing comfortably. Denies having any chest pain or any cough. No abdominal pain or pain to the leg area. PHYSICAL EXAMINATION: Blood pressure 108/60 with a pulse of 72, temperature is 97.8. General description is an elderly male lying in bed in no distress. Respiratory system: Unlabored breathing. Clear to auscultation anteriorly. Heart S1-S2 regular rate and rhythm. Abdomen soft, no tenderness. Legs are currently wrapped up. No obvious drainage on the dressing. LABS: BUN of 18, creatinine 1.04. DIAGNOSTIC IMPRESSION AND PLAN: 1. Patient with bilateral lower extremity cellulitis in this patient who also has a component of athlete's foot. Antibiotic can be switched over to a short course of oral Keflex 500 mg t.i.d. for about a week. 2. The patient with bilateral Athlete's feet, . Nystatin cream twice a day for about a week. MMODL / IJN: [id number] /
--- NOTE | 2018-08-28 20:22 | DS ---
DISCHARGE SUMMARY DATE OF ADMISSION: 08/23/2018 DATE OF DISCHARGE: 08/27/2018 FINAL DIAGNOSES: 1. Acute on chronic congestive heart failure exacerbation from systolic dysfunction, ejection fraction 20% to 25%. 2. Bilateral lower extremity cellulitis, acute on chronic. 3. Diabetes mellitus, type 2, on oral hypoglycemic. 4. Hyperlipidemia. 5. Essential hypertension. 6. Peripheral neuropathy secondary to diabetes. 7. Chronic obstructive pulmonary disease in a smoker. 8. Coronary artery disease with prior history of stent. 9. Chronic nicotine dependence. Patient is a cigarette smoker. HOSPITAL COURSE: This gentleman presented with CHF exacerbation. EF was known to be 20% to 30%. Patient was put on Lasix drip. Patient diuresed close to 10 L. Doing much better at the time of discharge. Also had a flareup of his lower extremity cellulitis that was treated with IV Ancef. Doing much better by the time of discharge. CONSULTATIONS: 1. Dr. David Chavez from Cardiology. 2. Dr. De La Paz from Infectious Disease. PHYSICAL EXAMINATION: VITAL SIGNS: Temperature 97.8, pulse 72, respiration 18, blood pressure 108/60, pulse 97% on room air. LUNGS: Improved air entry. CARDIOVASCULAR: Heart sounds irregular. Decreased edema. Cellulitis in lower extremity improving. INVESTIGATIONS: Potassium 4.2, BUN 18, creatinine 1.04. DISCHARGE MEDICATIONS: 1. Roy 7.5 one tablet q.6 p.r.n. 2. Aspirin 81 mg a day. 3. Lipitor 80 mg a day. 4. Glucophage 1000 mg b.i.d. 5. Lopressor 12.5 p.o. daily. 6. Zoloft 50 mg p.o. daily. 7. Keflex 500 mg p.o. q.8 for 15 capsules. 8. Lasix 60 mg p.o. b.i.d. 9. Zestril 2.5 mg p.o. daily. 10.Aldactone 25 mg p.o. b.i.d. Follow up with Dr. Brown in 3 to 4 days. Follow up with Dr. Boyle on 09/10/2018. [facility] is to follow. BMP in one week. MMODL / IJN: [id number] /
== END 2018-08-27 16:15 | disposition home health service (06) | DRG 292 ==
LOC: EC 23:42 → 3NMEDONC 08-23 02:11
PROVIDERS: ADMIT Hospitalist; ATTEND Hospitalist
DX: I11.0 Hypertensive heart disease with heart failure (principal); L03.115 Cellulitis of right lower limb; L03.116 Cellulitis of left lower limb; B35.3 Tinea pedis; E11.42 Type 2 diabetes mellitus with diabetic polyneuropathy; E11.51 Type 2 diabetes mellitus with diabetic peripheral angiopathy without gangrene; E78.5 Hyperlipidemia, unspecified; F17.210 Nicotine dependence, cigarettes, uncomplicated; I08.1 Rheumatic disorders of both mitral and tricuspid valves; I25.10 Atherosclerotic heart disease of native coronary artery without angina pectoris; I25.2 Old myocardial infarction; I25.5 Ischemic cardiomyopathy; I50.23 Acute on chronic systolic (congestive) heart failure; J44.9 Chronic obstructive pulmonary disease, unspecified; M06.9 Rheumatoid arthritis, unspecified; Z79.82 Long term (current) use of aspirin; Z79.84 Long term (current) use of oral hypoglycemic drugs; Z79.899 Other long term (current) drug therapy; Z86.14 Personal history of Methicillin resistant Staphylococcus aureus infection; Z95.5 Presence of coronary angioplasty implant and graft; Z95.810 Presence of automatic (implantable) cardiac defibrillator; Z88.0 Allergy status to penicillin; Z88.8 Allergy status to other drugs, medicaments and biological substances; Z82.49 Family history of ischemic heart disease and other diseases of the circulatory system; Z82.61 Family history of arthritis; Z83.6 Family history of other diseases of the respiratory system
CPT/HCPCS: 36415; 71046; 80048; 80053; 81001; 82550; 82553; 83036; 83605; 83735; 83880; 84100; 84484; 85025; 85610; 85730; 87086; 93005; 93970; 94760; 99285

== ENCOUNTER 2018-11-01 13:52 | Inpatient (IN) | payer MEDICARE, OTHER ==
[2018-11-01] MEDS ORDERED: ASPIRIN 325 MG TAB PO STA (14:35)
[2018-11-01] MEDS ORDERED: FUROSEMIDE 10 MG/ML 4 ML VIAL IV STA (14:38)
[2018-11-01 14:54] LABS: Basophils % (A) 1 %; Eosinophils # (A) 0.4 k/uL (0-0.7); Eosinophils % (A) 6 %; HCT 37.1 % (39.0-53.0); HGB 12.3 gm/dL (13.0-17.5); Lymphocytes # (A) 0.9 k/uL (1.0-4.8); Lymphocytes % (A) 15 %; MCH 29.9 pg (25.0-35.0); MCHC 33.2 g/dL (31.0-37.0); MCV 90.2 fL (80.0-100.0); Mean Platelet Volume 8.6; Monocytes # (A) 0.4 k/uL (0-1.0); Monocytes % (A) 6 %; Neutrophils # (A) 4.1 k/uL (1.3-7.7); Neutrophils % (A) 71 %; Platelet Count 146 k/uL (150-450); RBC 4.11 m/uL (4.30-5.90); RDW 14.8 % (11.5-15.5); WBC 5.8 k/uL (3.8-10.6)
[2018-11-01 15:04] LABS: ALT 36 U/L (21-72); AST 22 U/L (17-59); Albumin 3.7 g/dL (3.5-5.0); Alkaline Phosphatase 108 U/L (38-126); Anion Gap 6 mmol/L; Blood Urea Nitrogen 14 mg/dL (9-20); Calcium 9.3 mg/dL (8.4-10.2); Carbon Dioxide 24 mmol/L (22-30); Chloride 110 mmol/L (98-107); Glucose 157 mg/dL (74-99); INR 1.1 (<1.2); Magnesium 1.6 mg/dL (1.6-2.3); Partial Thromboplastin Time 26.9 sec (22.0-30.0); Potassium 4.7 mmol/L (3.5-5.1); Prothrombin Time 11.3 sec (9.0-12.0); Sodium 140 mmol/L (137-145); Total Bilirubin 1.5 mg/dL (0.2-1.3); Total Protein 6.6 g/dL (6.3-8.2)
--- NOTE | 2018-11-01 15:15 | XR ---
EXAMINATION TYPE: XR chest 2V DATE OF EXAM: 11/01/2018 COMPARISON: August 24, 2018 HISTORY: Chest pain TECHNIQUE: Frontal and lateral views of the chest are obtained. FINDINGS: Heart is enlarged. There is mild pulmonary congestion. There is infiltrate and pleural flu id in the left lower lobe. There is probably small right pleural effusion. There is left axillary pac emaker. There are chest leads. IMPRESSION: There is heart failure. There is left lower lobe infiltrate and pleural fluid not signif icantly different than last exam. Heart failure slightly worse than last exam.
--- NOTE | 2018-11-01 15:21 | ED ---
Recheck HPI <Patric Thomas - Last Filed: 11/01/18 16:51> - General Source: patient, RN notes reviewed, old records reviewed Mode of arrival: wheelchair Limitations: no limitations <Shereen Alegria - Last Filed: 11/01/18 18:50> - General Chief Complaint: Recheck/Abnormal Lab/Rx Stated Complaint: Leg swelling Time Seen by Provider: 11/01/18 14:34 - History of Present Illness Initial Comments: Patient is a 73-year-old male history of CHF presents wrist pharmacy of 1 week of progressive dyspnea and orthopnea. He states that he's been having bilateral lower extremity swelling. Patient denies any chest pain. Patient's track welder is Dr. Romero. Patient denies any nausea or vomiting. States she just generally feels unwell. Patient denies any recent fever, chills, chest pain, back pain, abdominal pain, nausea vomiting, numbness or tingling, dysuria or hematuria, constipation or diarrhea, headaches or visual changes, or any other current symptoms (Shereen Alegria) - Related Data Home Medications Medication Instructions Recorded Confirmed HYDROcodone/APAP 7.5-325MG [[place] 1 tab PO Q6HR PRN 11/07/15 08/23/18 7.5-325] Aspirin [Adult Low Dose Aspirin EC] 81 mg PO DAILY 04/10/16 08/23/18 Atorvastatin [Lipitor] 80 mg PO DAILY 08/06/16 08/23/18 metFORMIN HCL [Glucophage] 1,000 mg PO BID 08/28/17 08/23/18 Metoprolol Tartrate [Lopressor] 12.5 mg PO DAILY 08/23/18 08/23/18 Sertraline [Zoloft] 50 mg PO DAILY 08/23/18 08/24/18 Previous Rx's Medication Instructions Recorded Cephalexin [Keflex] 500 mg PO Q8HR #15 cap 08/27/18 Furosemide [Lasix] 60 mg PO BID@0900,1600 #180 tab 08/27/18 Lisinopril [Zestril] 2.5 mg PO DAILY #90 tab 08/27/18 Spironolactone [Aldactone] 25 mg PO BID #180 tab 08/27/18 Allergies Allergy/AdvReac Type Severity Reaction Status Date / Time Penicillins Allergy Rash/Hives Verified 11/01/18 16:09 gabapentin [From Neurontin] AdvReac Nausea Verified 11/01/18 16:09 Review of Systems ROS Other: All systems not noted in ROS Statement are negative. <Patric Thomas - Last Filed: 11/01/18 16:51> ROS Other: All systems not noted in ROS Statement are negative. <Shereen Alegria - Last Filed: 11/01/18 18:50> ROS Statement: Those systems with pertinent positive or pertinent negative responses have been documented in the HPI. Past Medical History Past Medical History: Chest Pain / Angina, Heart Failure, Diabetes Mellitus, Hyperlipidemia, Hypertension, Myocardial Infarction (NH), Rheumatoid Arthritis (RA) Additional Past Medical History / Comment(s): past edema in legs ,2016 rt.foot(heel) wound, bilat leg and hand neuropathy(unable to take gabapentin), tx [facility]. for rt hand tenosynovitis, poor circulation Last Myocardial Infarction Date:: 2010 History of Any Multi-Drug Resistant Organisms: MRSA, VRE Date of last positivie culture/infection: 12/08/15 MDRO Source:: RIGHT FOOT MRSA AND VRE Past Surgical History: Appendectomy, Cholecystectomy, Heart Catheterization With Stent, Hernia Repair, Tonsillectomy Additional Past Surgical History / Comment(s): cervical fusion laminactomy , left carpal tunnel release, cataract left eye, HEART STENT X2, 10-16-15 PTBA /RT LEG STENT, rt hand x2 surgery, umb hernia, past picc line Past Anesthesia/Blood Transfusion Reactions: Postoperative Nausea & Vomiting (PONV) Additional Past Anesthesia/Blood Transfusion Reaction / Comment(s): .PT STATED AFTER HAND SX HAD DIFFICULTY URINATING AND PAIN MEDS CONSTIPATE HIM. Date of Last Stent Placement:: 12/2013 Type of Cardiac Device: AICD Device Placement Date:: 2014 Past Psychological History: No Psychological Hx Reported Smoking Status: Current every day smoker Past Alcohol Use History: Rare Past Drug Use History: None Reported - Past Family History Mother Additional Family Medical History / Comment(s): PT STATED MOM WAS HEALTHY BUT IN OLDER AGE GOT PNE- FROM COMPLICATIONS OF PNE. Father Family Medical History: Osteoarthritis (OA) Additional Family Medical History / Comment(s): ULCERS, HEART PROBLEMS HAD BYPASS,BACK SURGURY <Shereen Alegria - Last Filed: 11/01/18 18:50> General Exam Limitations: no limitations General appearance: alert, in no apparent distress Head exam: Present: atraumatic, normocephalic, normal inspection Eye exam: Present: normal appearance, PERRL, EOMI. Absent: scleral icterus, conjunctival injection, periorbital swelling ENT exam: Present: normal exam, mucous membranes moist Neck exam: Present: normal inspection. Absent: tenderness, meningismus, lymphadenopathy Respiratory exam: Present: decreased breath sounds (Decreased lower breath sounds.). Absent: normal lung sounds bilaterally, respiratory distress, wheezes, rales, rhonchi, stridor Cardiovascular Exam: Present: regular rate, normal rhythm, normal heart sounds. Absent: systolic murmur, diastolic murmur, rubs, gallop, clicks GI/Abdominal exam: Present: soft, normal bowel sounds. Absent: distended, tenderness, guarding, rebound, rigid Extremities exam: Present: normal inspection, full ROM, normal capillary refill, pedal edema (Bilateral pedal edema 4+.). Absent: tenderness, joint swelling, calf tenderness Back exam: Present: normal inspection Neurological exam: Present: alert, oriented X3, CN II-XII intact Psychiatric exam: Present: normal affect <Shereen Alegria - Last Filed: 11/01/18 18:50> - General Exam Comments Initial Comments: 43-year-old male. Alert and oriented. No distress. (Shereen Alegria) Course Vital Signs 11/01/18 11/01/18 11/01/18 14:14 14:30 14:40 Temperature 98.9 F Pulse Rate 60 67 Respiratory 18 14 19 Rate Blood Pressure 103/51 121/64 117/48 O2 Sat by Pulse 96 88 L Oximetry 11/01/18 11/01/18 11/01/18 14:50 15:00 15:10 Temperature Pulse Rate 68 68 Respiratory 18 17 Rate Blood Pressure 109/56 109/56 117/48 O2 Sat by Pulse Oximetry 11/01/18 11/01/18 11/01/18 15:20 15:30 15:40 Temperature Pulse Rate 65 65 66 Respiratory 22 22 20 Rate Blood Pressure 111/78 111/78 126/65 O2 Sat by Pulse 99 Oximetry 11/01/18 11/01/18 11/01/18 15:50 16:00 16:10 Temperature Pulse Rate 63 64 66 Respiratory 20 21 15 Rate Blood Pressure 103/47 103/47 121/68 O2 Sat by Pulse 100 100 Oximetry 11/01/18 11/01/18 11/01/18 16:13 16:20 16:30 Temperature Pulse Rate 66 Respiratory 15 15 22 Rate Blood Pressure 121/68 115/61 115/61 O2 Sat by Pulse Oximetry 11/01/18 11/01/18 11/01/18 16:40 16:50 17:00 Temperature Pulse Rate 61 63 63 Respiratory 21 30 H 20 Rate Blood Pressure 121/54 94/66 94/66 O2 Sat by Pulse Oximetry 11/01/18 11/01/18 11/01/18 17:10 17:20 17:30 Temperature Pulse Rate 66 69 66 Respiratory 23 23 10 L Rate Blood Pressure 107/43 119/41 119/41 O2 Sat by Pulse Oximetry 11/01/18 11/01/18 11/01/18 17:40 17:50 18:00 Temperature Pulse Rate 65 Respiratory 23 20 19 Rate Blood Pressure 95/71 108/61 108/61 O2 Sat by Pulse Oximetry 11/01/18 11/01/18 11/01/18 18:10 18:20 18:30 Temperature Pulse Rate 64 65 65 Respiratory 10 L 22 19 Rate Blood Pressure 91/49 122/64 122/64 O2 Sat by Pulse 100 Oximetry 11/01/18 18:40 Temperature Pulse Rate 66 Respiratory 18 Rate Blood Pressure 106/59 O2 Sat by Pulse 100 Oximetry Medical Decision Making - Lab Data Result diagrams: 11/01/18 14:31 11/01/18 14:31 <Patric Thomas - Last Filed: 11/01/18 16:51> - Lab Data Result diagrams: 11/01/18 14:31 11/01/18 14:31 - Radiology Data Radiology results: report reviewed <Shereen Alegria - Last Filed: 11/01/18 18:50> - Medical Decision Making Patient reevaluated by myself, Dr. Thomas. Patient was comfortably in bed. Lung sounds are diminished. Patient reevaluated and reexamined. I did review chart. I do agree with PA findings. This includes diagnostic interpretation and treat ment plan. Case was also discussed in detail with Dr. Chavira, covering for Dr. Segundo, who admits for Dr. Brown. He will admit. (Patric Thomas) 73-year-old male history of CHF and diabetes presents emergency Department today with complaints of lower sternal any swelling. Does have some minimal erythema over the right leg. He states this is chronic. Patient at has 4+ pitting edema bilaterally. Chest x-ray shows evidence of pleural effusion and CHF. He did report evidence of possible infiltrate.Clinically Patient does not have pneumonia. With blood cell count is normal. He denies any significant coughing or fever. Patient was started on Lasix and held on fluids. Patient will be admitted at this time with consult to Dr. Martinez in. (Shereen Alegria) - Lab Data Lab Results 11/01/18 11/01/18 11/01/18 Range/Units 14:31 14:31 14:31 WBC 5.8 (3.8-10.6) k/uL RBC 4.11 L (4.30-5.90) m/uL Hgb 12.3 L (13.0-17.5) gm/dL Hct 37.1 L (39.0-53.0) % MCV 90.2 (80.0-100.0) fL MCH 29.9 (25.0-35.0) pg MCHC 33.2 (31.0-37.0) g/dL RDW 14.8 (11.5-15.5) % Plt Count 146 L (150-450) k/uL Neutrophils % 71 % Lymphocytes % 15 % Monocytes % 6 % Eosinophils % 6 % Basophils % 1 % Neutrophils # 4.1 (1.3-7.7) k/uL Lymphocytes # 0.9 L (1.0-4.8) k/uL Monocytes # 0.4 (0-1.0) k/uL Eosinophils # 0.4 (0-0.7) k/uL Basophils # 0.0 (0-0.2) k/uL PT (9.0-12.0) sec INR (<1.2) APTT (22.0-30.0) sec Sodium 140 (137-145) mmol/L Potassium 4.7 (3.5-5.1) mmol/L Chloride 110 H (98-107) mmol/L Carbon Dioxide 24 (22-30) mmol/L Anion Gap 6 mmol/L BUN 14 (9-20) mg/dL Creatinine 0.93 (0.66-1.25) mg/dL Est GFR (CKD-EPI)AfAm >90 (>60 ml/min/1.73 sqM) Est GFR (CKD-EPI)NonAf 81 (>60 ml/min/1.73 sqM) Glucose 157 H (74-99) mg/dL Calcium 9.3 (8.4-10.2) mg/dL Magnesium 1.6 (1.6-2.3) mg/dL Total Bilirubin 1.5 H (0.2-1.3) mg/dL AST 22 (17-59) U/L ALT 36 (21-72) U/L Alkaline Phosphatase 108 (38-126) U/L Troponin I (0.000-0.034) ng/mL NT-Pro-B Natriuret Pep 2380 pg/mL Total Protein 6.6 (6.3-8.2) g/dL Albumin 3.7 (3.5-5.0) g/dL 11/01/18 11/01/18 Range/Units 14:31 14:31 WBC (3.8-10.6) k/uL RBC (4.30-5.90) m/uL Hgb (13.0-17.5) gm/dL Hct (39.0-53.0) % MCV (80.0-100.0) fL MCH (25.0-35.0) pg MCHC (31.0-37.0) g/dL RDW (11.5-15.5) % Plt Count (150-450) k/uL Neutrophils % % Lymphocytes % % Monocytes % % Eosinophils % % Basophils % % Neutrophils # (1.3-7.7) k/uL Lymphocytes # (1.0-4.8) k/uL Monocytes # (0-1.0) k/uL Eosinophils # (0-0.7) k/uL Basophils # (0-0.2) k/uL PT 11.3 (9.0-12.0) sec INR 1.1 (<1.2) APTT 26.9 (22.0-30.0) sec Sodium (137-145) mmol/L Potassium (3.5-5.1) mmol/L Chloride (98-107) mmol/L Carbon Dioxide (22-30) mmol/L Anion Gap mmol/L BUN (9-20) mg/dL Creatinine (0.66-1.25) mg/dL Est GFR (CKD-EPI)AfAm (>60 ml/min/1.73 sqM) Est GFR (CKD-EPI)NonAf (>60 ml/min/1.73 sqM) Glucose (74-99) mg/dL Calcium (8.4-10.2) mg/dL Magnesium (1.6-2.3) mg/dL Total Bilirubin (0.2-1.3) mg/dL AST (17-59) U/L ALT (21-72) U/L Alkaline Phosphatase (38-126) U/L Troponin I <0.012 (0.000-0.034) ng/mL NT-Pro-B Natriuret Pep pg/mL Total Protein (6.3-8.2) g/dL Albumin (3.5-5.0) g/dL - Radiology Data Evidence of heart failure. Lower lobe infiltrate and pleural fluid not significantly different from last exam. Heart failure slightly worse the last exam. (Shereen Alegria) Disposition <Patric Thomas - Last Filed: 11/01/18 16:51> Time of Disposition: 17:16 <Shereen Alegria - Last Filed: 11/01/18 18:50> Clinical Impression: CHF (congestive heart failure), Bilateral lower extremity edema, Weight gain, Diabetes Disposition: ADMITTED IP TO THIS HOSP Condition: Stable
[2018-11-01] MEDS ORDERED: NALOXONE 0.4 MG/ML 1 ML VIAL IV PRN (17:16)
[2018-11-01] MEDS ORDERED: IBUPROFEN 400 MG TAB PO PRN (17:16)
[2018-11-01] MEDS ORDERED: ACETAMINOPHEN TAB 325 MG TAB PO PRN (17:16)
[2018-11-01] MEDS ORDERED: ONDANSETRON 4 MG/2 ML VIAL IVP PRN (17:16)
[2018-11-01] MEDS ORDERED: MORPHINE SULFATE 4 MG/ML SYRINGE IV PRN (17:16)
[2018-11-01] MEDS: FUROSEMIDE 10 MG/ML 4 ML VIAL IV SCH ×2 (20:59→22:55)
[2018-11-01] MEDS: SODIUM CHLORIDE 0.9% 1,000 ML IV SCH (20:59)
[2018-11-01 21:03] LABS: Glucose,Whole Blood 128 mg/dL (75-99)
[2018-11-01] MEDS: metFORMIN 500 MG TAB PO SCH (21:16)
[2018-11-01] MEDS: SPIRONOLACTONE 25 MG TAB PO SCH (21:16)
--- NOTE | 2018-11-01 21:24 | HP ---
HISTORY AND PHYSICAL CHIEF COMPLAINT: Shortness of breath. HISTORY OF PRESENT ILLNESS: This 73-year-old gentleman with a past medical history of chest pain, history of CHF/ejection fraction 10 to 20%, history of chronic systolic dysfunction, diabetes, hypertension, hyperlipidemia, myocardial infarction, rheumatology, being followed by Dr. Brown in the outpatient setting, not feeling well over the past several days. The patient apparently had increasing shortness of breath and patient came to [facility] and was admitted for further evaluation and treatment. The patient also had leg swelling also. The patient has leg lesions which are healing at this time. Chest x-ray showed some showed some evidence of CHF. There is no history of fever, rigors, no history of headache, loss of consciousness, seizures. The patient has some cough also. PAST MEDICAL HISTORY: History of CHF, history of diabetes type 2, hypertension, hyperlipidemia, myocardial infarction, rheumatoid arthritis appendectomy, CAD, stent. MEDICATIONS: Prior to admission include home medications are reviewed and include: 1. Glucophage 1000 mg p.o. b.i.d. 2. Aldactone 25 mg b.i.d. 3. Zoloft 50 mg daily. 4. Lopressor 12.5 mg daily. 5. Zestril 2.5 mg. 6. [place] 7.5 q.6h p.r.n. 7. Lasix 60 mg p.o. b.i.d. 8. Keflex 500 mg p.o. q.8h. 9. Lipitor 80 mg p.o. daily. 10.Aspirin 81 mg p.o. daily. ALLERGIES: PENICILLIN AND GABAPENTIN. FAMILY HISTORY: History of degenerative joint disease, ulcers, heart problems, bypass, back surgery in the family. SOCIAL HISTORY: History of smoker ongoing. No history of alcohol intake. REVIEW OF SYSTEMS: ENT: Diminished hearing and vision. CARDIOVASCULAR: As mentioned earlier. GI no nausea or vomiting. : No dysuria. NERVOUS SYSTEM: No numbness or weakness. ALLERGY/IMMUNOLOGY: No asthma or hayfever. MUSCULOSKELETAL: As mentioned earlier. HEMATOLOGY/ONCOLOGY: No history of anemia. ENDOCRINE: History of diabetes. No hypothyroidism. CONSTITUTIONAL: As mentioned earlier. Dermatology: Negative. Rheumatology: Negative. Psychiatry: As mentioned earlier. JOINTS: As mentioned earlier. PHYSICAL EXAM: Patient is alert, oriented x3. The pulse is 66, blood pressure 126/64, respiration 20, temperature normal, pulse ox 99 percent on room air. HEENT: Conjunctivae normal. Oral mucosa moist. Neck is jugular venous distention at the root of the neck. Cardiovascular system: S1, S2 muffled. Ejection systolic murmur. No other bruit heard. RESPIRATORY: Breath sounds diminished in the bases. A few scattered rhonchi and crackles in the bases. ABDOMEN: Soft, obese, nontender. No mass palpable. LEGS: Bilateral leg edema as well as healing ulcers also. NERVOUS SYSTEM: Higher functions as mentioned earlier. Moves all 4 limbs. No focal motor or sensory deficits. Lymphatics: No lymph nodes palpable in the neck, axillae or groin. SKIN: No ulcer, rash, bleeding. JOINTS: No active deforming arthropathy. LAB INVESTIGATIONS: Lab investigations at this time shows WBC 5.8, hemoglobin 12.3, sodium 140, potassium 4.7, and total bilirubin is 1.5. ASSESSMENT: 1. Congestive heart failure acute exacerbation with acute on chronic systolic dysfunction ejection fraction 20 to 25%. 2. Bilateral lower extremity edema. 3. Diabetes mellitus type 2. 4. History of hypertension. 5. Hyperlipidemia. 6. Myocardial infarction. 7. History of rheumatoid arthritis. 8. History of Methicillin-resistant Staphylococcus aureus. 9. History of VRE. 10.Coronary artery disease/stent. 11.Cervical fusion, degenerative joint disease. 12.Continued ongoing nicotine dependence. RECOMMENDATIONS AND DISCUSSION: This 73-year-old gentleman presented with multiple complex medical issues, we will monitor the patient closely. Continue the current medications, continue symptomatic treatment. Otherwise, I would recommend IV diuretics. Resume the home medications. Symptomatic treatment. See orders for details. DVT prophylaxis. Proton pump inhibitors. Prognosis guarded because of multiple complex medical issues. Further recommendations to follow. A copy of dictation being forwarded to Dr. Brown, who is the primary physician. MMODL / IJN: [id number] /
[2018-11-02 00:34] VITALS: BMI 35.4
[2018-11-02 05:49] LABS: Glucose,Whole Blood 117 mg/dL (75-99)
[2018-11-02] MEDS: FUROSEMIDE 10 MG/ML 4 ML VIAL IV SCH ×3 (06:09→22:44)
[2018-11-02 06:48] LABS: Basophils % (A) 1 %; Eosinophils # (A) 0.4 k/uL (0-0.7); Eosinophils % (A) 7 %; HCT 37.8 % (39.0-53.0); Lymphocytes # (A) 0.9 k/uL (1.0-4.8); Lymphocytes % (A) 17 %; MCH 28.9 pg (25.0-35.0); MCHC 31.9 g/dL (31.0-37.0); MCV 90.7 fL (80.0-100.0); Mean Platelet Volume 8.5; Monocytes # (A) 0.3 k/uL (0-1.0); Monocytes % (A) 6 %; Neutrophils # (A) 3.7 k/uL (1.3-7.7); Neutrophils % (A) 67 %; Platelet Count 159 k/uL (150-450); RBC 4.17 m/uL (4.30-5.90); RDW 14.9 % (11.5-15.5); WBC 5.5 k/uL (3.8-10.6)
[2018-11-02] MEDS: metFORMIN 500 MG TAB PO SCH ×2 (06:57→16:58)
[2018-11-02 06:59] LABS: Calcium 9.4 mg/dL (8.4-10.2); Potassium 4.4 mmol/L (3.5-5.1)
[2018-11-02] MEDS: METOPROLOL TARTRATE 12.5 MG TAB PO SCH (08:11)
[2018-11-02] MEDS: ASPIRIN 81 MG PO SCH (08:11)
[2018-11-02] MEDS: ATORVASTATIN 80 MG TAB PO SCH (08:11)
[2018-11-02] MEDS: SERTRALINE 50 MG TAB PO SCH (08:11)
[2018-11-02] MEDS: LISINOPRIL 2.5 MG TAB PO SCH (08:12)
[2018-11-02] MEDS: SPIRONOLACTONE 25 MG TAB PO SCH ×2 (08:12→16:58)
[2018-11-02] MEDS ORDERED: PANTOPRAZOLE 40 MG/10 ML VIAL IV SCH (09:00)
[2018-11-02 11:34] LABS: Glucose,Whole Blood 154 mg/dL (75-99)
--- NOTE | 2018-11-02 12:17 | CONS ---
CONSULTATION CHIEF COMPLAINT: CHF exacerbation. Karlos is a 73-year-old gentleman with history of cardiomyopathy with congestive heart failure, status post prophylactic AICD, hypertension, chronic systolic heart failure, diabetes, dyslipidemia who presented to hospital complaining of worsening leg edema and Cardiology had been consulted for the same. The patient has extensive peripheral vascular disease and has had revascularization for the same. His baseline ejection fraction is around 20%. At the time of my evaluation, his leg edema had improved somewhat. He denies shortness of breath, paroxysmal nocturnal dyspnea or orthopnea. He also has some component of cellulitis involving both legs. PAST MEDICAL HISTORY: Significant for ischemic cardiomyopathy with severe LV dysfunction, coronary artery disease, status post angioplasty, peripheral vascular disease status post angioplasty and chronic systolic heart failure. MEDICATIONS: At home included metformin, Aldactone, Zoloft, Nitrostat, Remeron, Lopressor, Zestril, [place], Lasix, Lipitor and aspirin. ALLERGIES: To PENICILLIN and NEURONTIN. FAMILY HISTORY: Negative for premature coronary artery disease. SOCIAL HISTORY: Significant for smoking. There is no history of EtOH abuse or drug abuse. REVIEW OF SYSTEMS: HEENT is unremarkable. CARDIAC: As described above/ RESPIRATORY: As described above. GI: Negative. GENITOURINARY: Negative. ALLERGY: As described above.. MUSCULOSKELETAL: As described above: HEMATOLOGIC: Negative. DERM: As described above. PHYSICAL EXAM: Karlos is comfortable at rest. Afebrile. Heart rate is 65 beats per minute, blood pressure is 120/65, respiratory rate is 18. Chest exam reveals diminished air entry at the bases. Heart exam reveals first and second heart sounds. No gallop. There is a systolic murmur at the apex. Abdomen is soft. Exam of the extremities reveals bilateral pitting edema, changes of chronic stasis with diminished pulses. LABS: Show a hemoglobin of 12, platelet count is 159. Potassium is 4.4, creatinine is 1.1. Troponin is negative. BNP is 2380. ASSESSMENT: 1. Acute exacerbation of chronic systolic heart failure. 2. Ischemic cardiomyopathy status post AICD. 3. Peripheral vascular disease. PLAN: I will treat the patient with IV Lasix. Continue the Lipitor, Zestril, metoprolol, increase the dose of metoprolol, blood pressure tolerating and continue the Aldactone. Hopefully, we can discharge the patient home over the next several days and the labs stated that the troponin is negative. BUN is 19, creatinine is 1.1. BNP is elevated. MMODL / IJN: [id number] /
[2018-11-02] MEDS: SODIUM CHLORIDE 0.9% 1,000 ML IV SCH (14:25)
[2018-11-02 16:36] LABS: Glucose,Whole Blood 160 mg/dL (75-99)
[2018-11-02 20:53] LABS: Glucose,Whole Blood 161 mg/dL (75-99)
--- NOTE | 2018-11-02 22:47 | PN ---
PROGRESS NOTE DATE OF SERVICE: 11/02/2018 PRESENTING COMPLAINT: Short of breath. INTERVAL HISTORY: Patient was admitted with CHF exacerbation. Breathing is a bit better. Edema is still present. Did tolerate some diet. Minimal cough. Does feel tired and rundown. Patient remains on IV Lasix. PHYSICAL EXAMINATION: Temperature 97.5, pulse 61, respiration 17, blood pressure 123/68, pulse ox 975 on room air. GENERAL APPEARANCE: Lying in bed, tired-appearing. EYES: Pupils equal. Conjunctivae normal. NECK: JVD unable to assess. Mass not palpable. RESPIRATORY: Effort increased. LUNGS: Diminished breath sounds. CARDIOVASCULAR: First and second sounds normal. Edema present. ABDOMEN: Soft, non-tender. Liver and spleen not palpable. PSYCHIATRY: Tired-appearing but answering questions. INVESTIGATIONS: White count 5.5, hemoglobin 12, potassium 4.4. Accu-Cheks are noted. ASSESSMENT: 1. Acute on chronic congestive heart failure exacerbation from systolic dysfunction, ejection fraction 20% to 25%. 2. Chronic bilateral lower extremity cellulitis. 3. Diabetes mellitus, type 2, on oral hypoglycemic. 4. Hyperlipidemia. 5. Essential hypertension. 6. Peripheral neuropathy secondary to diabetes. 7. Chronic obstructive pulmonary disease in a smoker. 8. Coronary artery disease with prior history of stent. PLAN: Continue current medication and treatment plan. Patient is on IV Lasix. Care was discussed with the patient. Follow with Cardiology. JOSEPH / YAKELIN: [id number] /
[2018-11-03 06:28] LABS: Glucose,Whole Blood 125 mg/dL (75-99)
[2018-11-03 06:37] LABS: Basophils % (A) 1 %; Eosinophils # (A) 0.4 k/uL (0-0.7); Eosinophils % (A) 6 %; HCT 36.9 % (39.0-53.0); HGB 12.4 gm/dL (13.0-17.5); Lymphocytes # (A) 0.8 k/uL (1.0-4.8); Lymphocytes % (A) 13 %; MCH 30.3 pg (25.0-35.0); MCHC 33.5 g/dL (31.0-37.0); MCV 90.5 fL (80.0-100.0); Mean Platelet Volume 8.5; Monocytes # (A) 0.4 k/uL (0-1.0); Monocytes % (A) 6 %; Neutrophils # (A) 4.4 k/uL (1.3-7.7); Neutrophils % (A) 74 %; Platelet Count 138 k/uL (150-450); RBC 4.07 m/uL (4.30-5.90); RDW 15.2 % (11.5-15.5)
[2018-11-03] MEDS: PANTOPRAZOLE 40 MG TABLET PO SCH (06:42)
[2018-11-03] MEDS: metFORMIN 500 MG TAB PO SCH ×2 (06:42→15:53)
[2018-11-03] MEDS: FUROSEMIDE 10 MG/ML 4 ML VIAL IV SCH ×3 (06:42→22:01)
[2018-11-03 06:48] LABS: Anion Gap 10 mmol/L; Blood Urea Nitrogen 22 mg/dL (9-20); Calcium 9.5 mg/dL (8.4-10.2); Carbon Dioxide 21 mmol/L (22-30); Chloride 105 mmol/L (98-107); Glucose 121 mg/dL (74-99); Potassium 4.4 mmol/L (3.5-5.1); Sodium 136 mmol/L (137-145)
--- NOTE | 2018-11-03 07:52 | ECHOF ---
Referral Reason:chf MEASUREMENTS -------- HEIGHT: 180.3 cm WEIGHT: 115.2 kg BP: 124/65 RVIDd: 3.1 cm (< 3.3) IVSd: 1.1 cm (0.6 - 1.1) LVIDd: 6.1 cm (3.9 - 5.3) LVPWd: 1.1 cm (0.6 - 1.1) IVSs: 1.3 cm LVIDs: 5.6 cm LVPWs: 1.1 cm LA Diam: 3.7 cm (2.7 - 3.8) LAESV Index (A-L): 38.61 ml/m Ao Diam: 4.1 cm (2.0 - 3.7) AV Cusp: 2.4 cm (1.5 - 2.6) MV EXCURSION: 18.048 mm (> 18.000) MV EF SLOPE: 85 mm/s (70 - 150) EPSS: 1.8 cm MV E Abdulaziz: 0.95 m/s MV DecT: 180 ms MV A Abdulaziz: 0.82 m/s MV E/A Ratio: 1.15 AV maxP.11 mmHg AV meanP.35 mmHg AR PHT: 579 ms FINDINGS -------- Paced rhythm. This was a technically adequate study. The left ventricle is mildly dilated. There is borderline concentric left ventricular hypertrophy. Overall left ventricular systolic function is severely impaired with, an EF between 20 - 25 %. Ba marcelo inferior LV wall motion is hypokinetic. Basal inferoseptal LV wall motion is hypokinetic. M id inferoseptal LV wall motion is hypokinetic. Apical septum LV wall motion is hypokinetic. The right ventricle is normal in size. LA is moderately dilated 34-39 ml/m2 The right atrium is normal in size. There is mild aortic valve sclerosis. There is mild aortic regurgitation. There is mild aortic st enosis present. The mitral valve leaflets are mildly thickened. The tricuspid valve appears structurally normal. The pulmonic valve was not well visualized. The aortic root is dilated measuring 4.1cm. There is no pericardial effusion. Large Pleural Effusion. CONCLUSIONS -------- 1. Paced rhythm. 2. This was a technically adequate study. 3. The left ventricle is mildly dilated. 4. There is borderline concentric left ventricular hypertrophy. 5. Basal inferior LV wall motion is hypokinetic. 6. Basal inferoseptal LV wall motion is hypokinetic. 7. Mid inferoseptal LV wall motion is hypokinetic. 8. Apical septum LV wall motion is hypokinetic. 9. The right ventricle is normal in size. 10. LA is moderately dilated 34-39 ml/m2 11. The right atrium is normal in size. 12. There is mild aortic valve sclerosis. 13. There is mild aortic regurgitation. 14. There is mild aortic stenosis present. 15. The mitral valve leaflets are mildly thickened. 16. The tricuspid valve appears structurally normal. 17. The pulmonic valve was not well visualized. 18. The aortic root is dilated measuring 4.1cm. 19. There is no pericardial effusion. 20. Large Pleural Effusion. TITLE INSPECTOR: Sera Patricio RDCS
[2018-11-03] MEDS: METOPROLOL TARTRATE 12.5 MG TAB PO SCH (09:33)
[2018-11-03] MEDS: SERTRALINE 50 MG TAB PO SCH (09:33)
[2018-11-03] MEDS: ATORVASTATIN 80 MG TAB PO SCH (09:33)
[2018-11-03] MEDS: LISINOPRIL 2.5 MG TAB PO SCH (09:33)
[2018-11-03] MEDS: ASPIRIN 81 MG PO SCH (09:33)
[2018-11-03] MEDS: SPIRONOLACTONE 25 MG TAB PO SCH ×2 (09:33→15:53)
[2018-11-03 11:47] LABS: Glucose,Whole Blood 164 mg/dL (75-99)
--- NOTE | 2018-11-03 12:57 | P.PN ---
Subjective Progress Note Date: 11/03/18 This is a pleasant 73-year-old gentleman with known history of ischemic cardio myopathy, prior AICD implantation, hypertension, chronic systolic congestive heart failure, diabetes, hyperlipidemia, who presented to the hospital mainly with symptoms of significant bilateral peripheral edema. He was seen in consultation yesterday and initiated on IV Lasix. Patient diuresed well through the night last night and his weight today is down 5 kg. Overall he does state that he is feeling significantly better. Patient is quite anxious to be discharged home tomorrow if possible, as he takes care of his . We will continue current dose of IV Lasix, continue to monitor intake and output along w ith daily weights and daily lytes BUN and creatinine Objective - Vital Signs Vital signs: Vital Signs Temp 97.5 F L 11/02/18 20:00 Pulse 70 11/03/18 04:00 Resp 18 11/03/18 04:00 BP 134/61 11/03/18 04:00 Pulse Ox 98 11/03/18 04:00 Intake & Output 11/02/18 11/03/18 11/03/18 18:59 06:59 18:59 Intake Total 702 180 Output Total 475 2000 600 Balance 227 -1999 -420 Weight 115.3 kg 110 kg Intake: Oral 702 180 Output: Urine 475 2000 600 Other: Voiding Method Urinal # Voids 2 1 - Exam PHYSICAL EXAMINATION: GENERAL: 73-year-old gentleman in no acute distress at the time of my examination HEENT: Head is atraumatic, normocephalic. Pupils equal, round. Sclera anicteric. Conjunctiva are clear. Mucous membranes of the mouth are moist. Neck is supple. There is no elevated jugular venous pressure. No carotid b ruit is heard. HEART EXAMINATION: Heart S1 and S2 1 systolic murmur is heard. CHEST EXAMINATION: Circumflex clear with mild diminished air entry to the bases. ABDOMEN: Soft, nontender. Bowel sounds are heard. No organomegaly noted. EXTREMITIES: 1+ peripheral pulses with 1+ evidence of peripheral edema , chronic venous stasis .. NEUROLOGIC patient is awake, alert and oriented 3 . . - Labs CBC & Chem 7: 11/03/18 06:09 11/03/18 06:09 Labs: Abnormal Lab Results - Last 24 Hours (Table) 11/02/18 11/02/18 11/03/18 Range/Units 16:31 20:52 06:09 RBC 4.07 L (4.30-5.90) m/uL Hgb 12.4 L (13.0-17.5) gm/dL Hct 36.9 L (39.0-53.0) % Plt Count 138 L (150-450) k/uL Lymphocytes # 0.8 L (1.0-4.8) k/uL Sodium (137-145) mmol/L Carbon Dioxide (22-30) mmol/L BUN (9-20) mg/dL Glucose (74-99) mg/dL POC Glucose (mg/dL) 160 H 161 H (75-99) mg/dL 11/03/18 11/03/18 11/03/18 Range/Units 06:09 06:25 11:45 RBC (4.30-5.90) m/uL Hgb (13.0-17.5) gm/dL Hct (39.0-53.0) % Plt Count (150-450) k/uL Lymphocytes # (1.0-4.8) k/uL Sodium 136 L (137-145) mmol/L Carbon Dioxide 21 L (22-30) mmol/L BUN 22 H (9-20) mg/dL Glucose 121 H (74-99) mg/dL POC Glucose (mg/dL) 125 H 164 H (75-99) mg/dL Assessment and Plan Plan: Assessment and plan #1 systolic congestive heart failure acute on chronic #2 ischemic cardiomyopathy with prior AICD #3 diabetes #4 hypertension #5 CAD with prior PCI #6 PAD #7 hyperlipidemia Plan We'll continue current dose of IV Lasix, continue to monitor intake and output along with daily weights and daily lytes BUN and creatinine. Plan to change the Lasix over to oral from tomorrow and possibly discharge home if stable. DNP note has been reviewed, I agree with a documented findings and plan of care. Patient was seen and examined.
[2018-11-03 16:32] LABS: Glucose,Whole Blood 160 mg/dL (75-99)
[2018-11-03] MEDS: SODIUM CHLORIDE 0.9% 1,000 ML IV SCH (18:39)
--- NOTE | 2018-11-03 20:11 | PN ---
PROGRESS NOTE DATE OF SERVICE: November 03, 2018. PRESENTING COMPLAINT: Short of breath. INTERVAL HISTORY: Patient admitted with CHF exacerbation on IV Lasix. Breathing continues to improve. Edema continues to come down. Up and about. Tolerating a diet. REVIEW OF SYSTEMS: Done for constitutional, cardiovascular, GI, pulmonary; relevant findings as above. CURRENT MEDICATIONS: Reviewed that include IV Lasix. PHYSICAL EXAMINATION: VITAL SIGNS: Temperature 97.4, pulse 58, respiratory 18, blood pressure 110/67, pulse ox 98% on room air. GENERAL APPEARANCE: Lying in bed, more perky. EYES: Pupils equal. Conjunctivae normal. NECK: JVD unable to assess. Mass not palpable. RESPIRATORY: Effort increased. LUNGS: Decreased breath sounds. CARDIOVASCULAR: 1st and 2nd sounds normal. Decreased edema. ABDOMEN: Soft, nontender. Liver and spleen not palpable. PSYCHIATRY: Alert and oriented x3. Mood and affect normal. INVESTIGATIONS: White count 16, hemoglobin 12.4, platelets 138, potassium 4.4, BUN 22, creatinine 0.91. Accu-Cheks are noted. ASSESSMENT: 1. Acute on chronic congestive heart exacerbation from systolic dysfunction EF 20-25 percent improving. 2. Chronic bilateral lower extremity cellulitis. 3. Diabetes mellitus type 2 on oral hypoglycemic. 4. Hyperlipidemia. 5. Essential hypertension. 6. Peripheral neuropathy secondary to diabetes. 7. Chronic obstructive pulmonary disease in a smoker. 8. Coronary artery disease with prior history of stent. PLAN: Patient is responding well to Lasix. The patient is keen to go home tomorrow. We will do a chest x-ray, but clinically patient is doing better. Encouraged the patient to be out of bed and hoping patient to go home tomorrow. MMODL / IJN: [id number] /
[2018-11-03 20:40] LABS: Glucose,Whole Blood 135 mg/dL (75-99)
[2018-11-03] MEDS: ENOXAPARIN 40 MG/0.4 ML SYRINGE SQ SCH (22:01)
[2018-11-04 06:06] LABS: Glucose,Whole Blood 144 mg/dL (75-99)
[2018-11-04 06:17] LABS: Basophils % (A) 0 %; Eosinophils # (A) 0.4 k/uL (0-0.7); Eosinophils % (A) 6 %; HCT 36.9 % (39.0-53.0); HGB 11.9 gm/dL (13.0-17.5); Lymphocytes # (A) 0.8 k/uL (1.0-4.8); Lymphocytes % (A) 12 %; MCH 28.9 pg (25.0-35.0); MCHC 32.2 g/dL (31.0-37.0); MCV 89.8 fL (80.0-100.0); Mean Platelet Volume 8.4; Monocytes # (A) 0.5 k/uL (0-1.0); Monocytes % (A) 7 %; Neutrophils # (A) 4.6 k/uL (1.3-7.7); Neutrophils % (A) 73 %; Platelet Count 154 k/uL (150-450); RBC 4.11 m/uL (4.30-5.90); RDW 14.7 % (11.5-15.5); WBC 6.3 k/uL (3.8-10.6)
[2018-11-04 06:39] LABS: Calcium 9.9 mg/dL (8.4-10.2); Potassium 4.4 mmol/L (3.5-5.1)
[2018-11-04] MEDS: PANTOPRAZOLE 40 MG TABLET PO SCH (06:46)
[2018-11-04] MEDS: FUROSEMIDE 10 MG/ML 4 ML VIAL IV SCH (06:46)
[2018-11-04] MEDS: metFORMIN 500 MG TAB PO SCH (06:46)
--- NOTE | 2018-11-04 08:59 | XR ---
EXAMINATION TYPE: XR chest 2V DATE OF EXAM: 11/04/2018 COMPARISON: 11/01/2018 TECHNIQUE: PA and lateral views submitted. HISTORY: Shortness of breath FINDINGS: Cardiomegaly and cardiac device seen with bilateral consolidation and pleural effusion. Underlying CO PD and interstitial prominence noted. Biapical pleural thickening. No pneumothorax. Linear density al keesha the lateral margin the pleural surfaces stable. Hypertrophic and degenerative change spine. IMPRESSION: 1. COPD with bilateral consolidation and pleural effusion correlate for CHF otherwise consider pneumo adrienne. 2. Findings involving the right midlung with linear density may represent a bleb rather than a tiny l oculated pneumothorax and is stable from multiple prior exam
[2018-11-04] MEDS ORDERED: FUROSEMIDE 80 MG TAB PO SCH (09:00)
[2018-11-04 09:34] VITALS: RESP 18
[2018-11-04] MEDS: ATORVASTATIN 80 MG TAB PO SCH (09:54)
[2018-11-04] MEDS: ENOXAPARIN 40 MG/0.4 ML SYRINGE SQ SCH (09:54)
[2018-11-04] MEDS: METOPROLOL TARTRATE 12.5 MG TAB PO SCH (09:54)
[2018-11-04] MEDS: SERTRALINE 50 MG TAB PO SCH (09:55)
[2018-11-04] MEDS: SPIRONOLACTONE 25 MG TAB PO SCH (09:55)
[2018-11-04] MEDS: ASPIRIN 81 MG PO SCH (09:55)
[2018-11-04] MEDS: LISINOPRIL 2.5 MG TAB PO SCH (09:55)
[2018-11-04 11:17] LABS: Glucose,Whole Blood 225 mg/dL (75-99)
--- NOTE | 2018-11-04 11:43 | P.PN ---
Subjective Progress Note Date: 11/04/18 This is a pleasant 73-year-old gentleman with known history of ischemic cardio myopathy, prior AICD implantation, hypertension, chronic systolic congestive heart failure, diabetes, hyperlipidemia, who presented to the hospital mainly with symptoms of significant bilateral peripheral edema. He was seen in consultation yesterday and initiated on IV Lasix. Patient diuresed well through the night last night and his weight today is down 5 kg. Overall he does state that he is feeling significantly better. Patient is quite anxious to be discharged home tomorrow if possible, as he takes care of his . We will continue current dose of IV Lasix, continue to monitor intake and output along w ith daily weights and daily lytes BUN and creatinine. 11/04/2018 Patient was seen and examined this morning, feels well, weight is down 3 kg today. Edema has significantly improved overall. Blood pressure 108/50 with a heart rate in the 60s, 98% on room air. White blood cell count 6.3, hemoglobin 11.9, platelet count 154. Sodium 137, potassium 4.4, BUN 23 and creatinine 1.0. IV Lasix will be discontinued today and patient will be initiated on oral Lasix 80 mg by mouth twice a day Objective - Vital Signs Vital signs: Vital Signs Temp 98.1 F 11/04/18 08:35 Pulse 64 11/04/18 08:35 Resp 18 11/04/18 08:35 BP 107/54 11/04/18 08:35 Pulse Ox 98 11/04/18 08:35 Intake & Output 11/03/18 11/04/18 11/04/18 18:59 06:59 18:59 Intake Total 520 240 Output Total 900 875 Balance -380 -875 240 Weight 107.3 kg Intake: Oral 520 240 Output: Urine 900 875 Other: Voiding Method Urinal # Bowel Movements 1 - Exam PHYSICAL EXAMINATION: GENERAL: 73-year-old gentleman in no acute distress at the time of my examination HEENT: Head is atraumatic, normocephalic. Pupils equal, round. Sclera anicteric. Conjunctiva are clear. Mucous membranes of the mouth are moist. Neck is supple. There is no elevated jugular venous pressure. No carotid bruit is heard. HEART EXAMINATION: Heart S1 and S2 1 systolic murmur is heard. CHEST EXAMINATION: Lungs are clear to auscultation . ABDOMEN: Soft, nontender. Bowel sounds are heard. No organomegaly noted. EXTREMITIES: 1+ peripheral pulses with trace evidence of peripheral edema , chronic venous stasis . Bilateral SANGEETA hose in place . NEUROLOGIC patient is awake, alert and oriented 3 . . - Labs CBC & Chem 7: 11/04/18 05:54 11/04/18 05:54 Labs: Abnormal Lab Results - Last 24 Hours (Table) 11/03/18 11/03/18 11/03/18 Range/Units 11:45 16:31 20:38 RBC (4.30-5.90) m/uL Hgb (13.0-17.5) gm/dL Hct (39.0-53.0) % Lymphocytes # (1.0-4.8) k/uL Carbon Dioxide (22-30) mmol/L BUN (9-20) mg/dL Glucose (74-99) mg/dL POC Glucose (mg/dL) 164 H 160 H 135 H (75-99) mg/dL 11/04/18 11/04/18 11/04/18 Range/Units 05:54 05:54 06:04 RBC 4.11 L (4.30-5.90) m/uL Hgb 11.9 L (13.0-17.5) gm/dL Hct 36.9 L (39.0-53.0) % Lymphocytes # 0.8 L (1.0-4.8) k/uL Carbon Dioxide 32 H (22-30) mmol/L BUN 23 H (9-20) mg/dL Glucose 126 H (74-99) mg/dL POC Glucose (mg/dL) 144 H (75-99) mg/dL 11/04/18 Range/Units 11:16 RBC (4.30-5.90) m/uL Hgb (13.0-17.5) gm/dL Hct (39.0-53.0) % Lymphocytes # (1.0-4.8) k/uL Carbon Dioxide (22-30) mmol/L BUN (9-20) mg/dL Glucose (74-99) mg/dL POC Glucose (mg/dL) 225 H (75-99) mg/dL Assessment and Plan Plan: Assessment and plan #1 systolic congestive heart failure acute on chronic #2 ischemic cardiomyopathy with prior AICD #3 diabetes #4 hypertension #5 CAD with prior PCI #6 PAD #7 hyperlipidemia Plan We will discontinue the IV Lasix and start the patient on Lasix 80 mg 1 tablet by mouth twice a day. He may be able to be discharged home from [facility]. Follow-up appointment will be made in the office post discharge. DNP note has been reviewed, I agree with a documented findings and plan of care. Patient was seen and examined.
[2018-11-04 14:07] VITALS: BP 106/65; PULSE 61; TEMP 97.8
--- NOTE | 2018-11-05 00:01 | DS ---
DISCHARGE SUMMARY DATE OF ADMISSION: 11/01/2018. DATE OF DISCHARGE: 11/04/2018. FINAL DIAGNOSES: 1. Acute on chronic congestive heart failure exacerbation from systolic dysfunction EF 20% to 25%. 2. Chronic bilateral lower extremity cellulitis. 3. Diabetes mellitus type 2 on oral hypoglycemic. 4. Hyperlipidemia. 5. Essential hypertension. 6. Peripheral neuropathy secondary to diabetes. 7. Chronic obstructive pulmonary disease in an ex-smoker. 8. Coronary artery disease with prior history of stent. HOSPITAL COURSE: This patient presented with CHF exacerbation. EF 20 to 25%. Responded to IV Lasix, diuresed rather well. Doing much better. Edema down. Up and about by the time of discharge. Seen by Cardiology, okayed the patient to be discharged today. PHYSICAL EXAMINATION: Temperature 97.8, pulse 60, respirations 18, blood pressure 106/65, pulse ox 99% on room air. LUNGS: Fair air entry. CARDIOVASCULAR: 1st and 2nd sounds normal. Mild edema. INVESTIGATIONS: BUN 23, creatinine 1.05. CONSULTATION: Dr. Oleg Huntley from Cardiology. DISCHARGE MEDICATIONS: 1. [place] 7.5 one tab p.o. every 6 p.r.n. 2. Aspirin 81 mg a day. 3. Lipitor 80 mg a day. 4. Glucophage 1000 mg p.o. b.i.d. 5. Lopressor 12.5 p.o. daily. 6. Zestril 2.5 p.o. daily. 7. Remeron 50 mg at bedtime. 8. Nitrostat 0.4 sublingual every 5 p.r.n. 9. Zoloft 50 mg p.o. daily. 10.Lasix 80 mg p.o. b.i.d. 11.Aldactone 25 mg p.o. b.i.d. FOLLOW UP: Dr. Brown on 11/10/2018, Dr. Boyle on 11/16/2018. BMP in 1 week. MMODL / IJN: [id number] /
== END 2018-11-04 16:50 | disposition home health service (06) | DRG 292 ==
LOC: EC 13:52 → 3SCARD 16:51 → INTOOBSV 16:51 → 3SCARD 17:55 → OBSVTOIN 11-04 10:49
PROVIDERS: ADMIT Hospitalist; ATTEND Hospitalist
DX: I11.0 Hypertensive heart disease with heart failure (principal); L03.115 Cellulitis of right lower limb; L03.116 Cellulitis of left lower limb; I50.23 Acute on chronic systolic (congestive) heart failure; E11.42 Type 2 diabetes mellitus with diabetic polyneuropathy; E11.51 Type 2 diabetes mellitus with diabetic peripheral angiopathy without gangrene; J44.9 Chronic obstructive pulmonary disease, unspecified; I25.5 Ischemic cardiomyopathy; M06.9 Rheumatoid arthritis, unspecified; I25.10 Atherosclerotic heart disease of native coronary artery without angina pectoris; I87.8 Other specified disorders of veins; E78.5 Hyperlipidemia, unspecified; I25.2 Old myocardial infarction; H91.90 Unspecified hearing loss, unspecified ear; F17.200 Nicotine dependence, unspecified, uncomplicated; Z71.6 Tobacco abuse counseling; Z95.810 Presence of automatic (implantable) cardiac defibrillator; Z79.82 Long term (current) use of aspirin; Z79.84 Long term (current) use of oral hypoglycemic drugs; Z79.899 Other long term (current) drug therapy; Z86.14 Personal history of Methicillin resistant Staphylococcus aureus infection; Z86.19 Personal history of other infectious and parasitic diseases; Z90.49 Acquired absence of other specified parts of digestive tract; Z95.5 Presence of coronary angioplasty implant and graft; Z98.1 Arthrodesis status; Z95.820 Peripheral vascular angioplasty status with implants and grafts; Z88.0 Allergy status to penicillin; Z88.8 Allergy status to other drugs, medicaments and biological substances; Z82.61 Family history of arthritis; Z82.49 Family history of ischemic heart disease and other diseases of the circulatory system
CPT/HCPCS: 36415; 71046; 80048; 80053; 83735; 83880; 84484; 85025; 85610; 85730; 93005; 93306; 96374; 99285

== ENCOUNTER 2018-11-24 18:39 | Observation (INO) | payer MEDICARE, OTHER ==
--- NOTE | 2018-11-24 19:25 | ED ---
General Adult HPI - General Chief complaint: Fall Stated complaint: Fall, back pain Time Seen by Provider: 11/24/18 19:01 Source: patient, EMS, RN notes reviewed Mode of arrival: EMS Limitations: no limitations - History of Present Illness Initial comments: 73-year-old male presents to the emergency department for a chief complaint of fall just prior to arrival. Patient states he was on the first step when he tipped backwards and fell. Patient states he landed on his bottom and is now having some lower back pain and buttock pain. Patient states he hit his head but it was on a plastic area of the garden. Denies blood thinners, or headaches. No LOC. Patient denying any neck pain whatsoever, Patient has no other complaints at this time including shortness of breath, chest pain, abdominal pain, nausea or vomiting, headache, or visual changes. - Related Data Home Medications Medication Instructions Recorded Confirmed HYDROcodone/APAP 7.5-325MG [[place] 1 tab PO Q6HR PRN 11/07/15 11/24/18 7.5-325] Aspirin [Adult Low Dose Aspirin EC] 81 mg PO DAILY 04/10/16 11/24/18 Atorvastatin [Lipitor] 80 mg PO DAILY 08/06/16 11/24/18 metFORMIN HCL [Glucophage] 1,000 mg PO BID 08/28/17 11/24/18 Metoprolol Tartrate [Lopressor] 12.5 mg PO DAILY 08/23/18 11/24/18 Mirtazapine [Remeron] 15 mg PO HS 11/02/18 11/24/18 Nitroglycerin Sl Tabs [Nitrostat] 0.4 mg SL Q5M PRN 11/02/18 11/24/18 Sertraline [Zoloft] 50 mg PO DAILY 11/02/18 11/24/18 Previous Rx's Medication Instructions Recorded Lisinopril [Zestril] 2.5 mg PO DAILY #90 tab 08/27/18 Furosemide [Lasix] 80 mg PO BID@0900,1600 #60 tab 11/04/18 Spironolactone [Aldactone] 25 mg PO BID #60 tab 11/04/18 Allergies Allergy/AdvReac Type Severity Reaction Status Date / Time Penicillins Allergy Rash/Hives Verified 11/24/18 19:05 gabapentin [From Neurontin] AdvReac Nausea Verified 11/24/18 19:05 Review of Systems ROS Statement: Those systems with pertinent positive or pertinent negative responses have been documented in the HPI. ROS Other: All systems not noted in ROS Statement are negative. Past Medical History Past Medical History: Chest Pain / Angina, Heart Failure, Diabetes Mellitus, Hyperlipidemia, Hypertension, Myocardial Infarction (RI), Rheumatoid Arthritis (RA) Additional Past Medical History / Comment(s): past edema in legs ,2016 rt.foot(heel) wound, bilat leg and hand neuropathy(unable to take gabapentin), tx at [facility]. for rt hand tenosynovitis, poor circulation Last Myocardial Infarction Date:: 2010 History of Any Multi-Drug Resistant Organisms: MRSA, VRE Date of last positivie culture/infection: 12/08/15 MDRO Source:: RIGHT FOOT MRSA AND VRE Past Surgical History: Appendectomy, Cholecystectomy, Heart Catheterization With Stent, Hernia Repair, Tonsillectomy Additional Past Surgical History / Comment(s): cervical fusion laminactomy , left carpal tunnel release, cataract left eye, HEART STENT X2, 10-16-15 PTBA /RT LEG STENT, rt hand x2 surgery, umb hernia, past picc line Past Anesthesia/Blood Transfusion Reactions: Postoperative Nausea & Vomiting (PONV) Additional Past Anesthesia/Blood Transfusion Reaction / Comment(s): .PT STATED AFTER HAND SX HAD DIFFICULTY URINATING AND PAIN MEDS CONSTIPATE HIM. Date of Last Stent Placement:: 12/2013 Type of Cardiac Device: AICD Device Placement Date:: 2014 Past Psychological History: No Psychological Hx Reported Smoking Status: Current every day smoker Past Alcohol Use History: None Reported Past Drug Use History: None Reported - Past Family History Mother Additional Family Medical History / Comment(s): PT STATED MOM WAS HEALTHY BUT IN OLDER AGE GOT PNE- FROM COMPLICATIONS OF PNE. Father Family Medical History: Osteoarthritis (OA) Additional Family Medical History / Comment(s): ULCERS, HEART PROBLEMS HAD BYPASS,BACK SURGURY General Exam Limitations: no limitations General appearance: alert, in no apparent distress Head exam: Present: atraumatic, normocephalic, normal inspection Eye exam: Present: normal appearance, PERRL, EOMI. Absent: scleral icterus, conjunctival injection, periorbital swelling ENT exam: Present: normal exam, mucous membranes moist Neck exam: Present: normal inspection, full ROM. Absent: tenderness (no cervical spine tenderness whatsoever), meningismus, lymphadenopathy Respiratory exam: Present: normal lung sounds bilaterally. Absent: respiratory distress, wheezes, rales, rhonchi, stridor Cardiovascular Exam: Present: regular rate, normal rhythm, normal heart sounds. Absent: systolic murmur, diastolic murmur, rubs, gallop, clicks Extremities exam: Present: normal capillary refill (cap refill < 2 seconds im BLE), other (ambulatory). Absent: full ROM (patient able to flex/extend hips and knees but does have some limited mobility to this,states this is chronic) Back exam: Absent: vertebral tenderness (no signficant lumbar spine tenderness) Neurological exam: Present: alert, oriented X3, CN II-XII intact Psychiatric exam: Present: normal affect, normal mood Course Vital Signs 11/24/18 18:56 Temperature 97.8 F Pulse Rate 72 Respiratory 16 Rate Blood Pressure 125/72 O2 Sat by Pulse 93 L Oximetry EKG Findings - EKG Comments: EKG Findings:: Normal sinus rhythm, ventricular rate 75, KS interval 206, QTC 466 Medical Decision Making - Medical Decision Making 73-year-old male presents to the emergency department after fall. Patient was standing one step high when he fell backwards onto the pavement. Patient did hit his head although this was on a soft plastic gardening area. She is complaining of back pain at this time. X-rays of the lumbar spine as well as bilateral hips and pelvis are negative for acute fracture although there is osteoarthritis. CT brain and C-spine are negative for fracture or intracranial hemorrhage. However chest x-ray did show prominent pulmonary edema with large left pleural effusion. Patient does admit to shortness of breath. Does have a history of heart failure. At this point shortness of breath workup was initiated. EKG showed a normal sinus rhythm. CBC was unremarkable. CMP did show mild hyperkalemia 5.3. Troponin negative. BNP 3000. Patient was given Lasix here in the emergency department. Patient will be admitted for this pleural effusion and shortness of breath. Patient is able to ambulate however does have some difficulty with doing this and states he feels more unsteady than normal due to back pain. - Lab Data Result diagrams: 11/24/18 21:14 11/24/18 21:14 Disposition Clinical Impression: Pleural effusion, Heart failure, Fall, Back pain Disposition: ADMITTED IP TO THIS HOSP Condition: Fair Is patient prescribed a controlled substance at d/c from ED?: No Time of Disposition: 23:04
--- NOTE | 2018-11-24 20:09 | CT ---
EXAMINATION TYPE: CT brain lubna wo con DATE OF EXAM: 11/24/2018 COMPARISON: 02/16/2015 HISTORY: Fall injury CT DLP: 1352.8 mGycm Automated exposure control for dose reduction was used. TECHNIQUE: CT scan of the head and cervical spine are performed without contrast. FINDINGS: There is no acute intracranial hemorrhage, mass effect, or midline shift identified. The ventricles and sulci are within normal limits in size. The globes are intact and the visualized sin uses are clear. Cervical spine is visualized in its entirety from C1 through upper thoracic levels and demonstrates s atisfactory alignment without evidence of acute fracture or dislocation. Prevertebral soft tissue ap pears within normal limits. Orthopedic hardware is intact. Multilevel spondylosis changes, marked in degree, are noted. The C1-C2 articulation is unremarkable. IMPRESSION: 1. There is no acute fracture or dislocation evident in the cervical spine. 2. No acute intracranial hemorrhage, mass effect, or midline shift is seen.
--- NOTE | 2018-11-24 20:16 | XR ---
EXAMINATION: XR chest 2V DATE AND TIME: 11/24/2018 7:51 PM CLINICAL INDICATION: PHH; Pain TECHNIQUE: Departmental protocol COMPARISON: 11/04/2018 FINDINGS: Cardiac pacemaker noted. Moderately enlarged cardiac silhouette redemonstrated. Throughout the lungs is an interstitial and alveolar phase process consistent with pulmonary edema, p resumably cardiogenic etiology. There is a moderately-prominent left pleural effusion, mildly increas ed compared to the prior study. There is associated passive atelectasis of most of the left lower lob e. Concurrent pneumonia can be excluded only on clinical grounds. No abnormal gas collections. No acute bone or soft tissue findings. IMPRESSION: PROMINENT PULMONARY EDEMA PATTERN WITH LARGE LEFT PLEURAL EFFUSION.
--- NOTE | 2018-11-24 20:17 | XR ---
PROCEDURE: XR Hip Bilateral and AP pelvis - 3V DATE AND TIME: 11/24/2018 7:51 PM CLINICAL INDICATION: PHH; Pain TECHNIQUE: Department protocol COMPARISON: 06/30/2012 FINDINGS: There is no fracture or malalignment, and the soft tissues are negative for acute findings. Marked bone on bone end-stage osteoarthritis is noted at the left hip. IMPRESSION: NO ACUTE PROCESS.
--- NOTE | 2018-11-24 20:21 | XR ---
PROCEDURE: XR lumbar spine - 3V DATE AND TIME: 11/24/2018 7:51 PM CLINICAL INDICATION: PHH; Pain TECHNIQUE: AP and 2 lateral views COMPARISON: None FINDINGS: There are multilevel advanced degenerative facet and discogenic changes. There is no fracture or malalignment. The soft tissues are unremarkable. IMPRESSION: NO ACUTE PROCESS.
[2018-11-24] MEDS ORDERED: HYDROcodone/APAP 5-325MG 1 EACH TAB PO STA (20:26)
[2018-11-24 21:38] LABS: Basophils % (A) 0 %; Eosinophils # (A) 0.3 k/uL (0-0.7); Eosinophils % (A) 3 %; HCT 34.6 % (39.0-53.0); HGB 11.4 gm/dL (13.0-17.5); Lymphocytes # (A) 0.8 k/uL (1.0-4.8); Lymphocytes % (A) 10 %; MCH 29.5 pg (25.0-35.0); MCHC 33.1 g/dL (31.0-37.0); MCV 89.2 fL (80.0-100.0); Mean Platelet Volume 8.8; Monocytes # (A) 0.3 k/uL (0-1.0); Monocytes % (A) 4 %; Neutrophils # (A) 6.7 k/uL (1.3-7.7); Neutrophils % (A) 82 %; Platelet Count 195 k/uL (150-450); RBC 3.87 m/uL (4.30-5.90); RDW 15.2 % (11.5-15.5); WBC 8.2 k/uL (3.8-10.6)
[2018-11-24 21:45] LABS: ALT 38 U/L (21-72); AST 39 U/L (17-59); Albumin 3.7 g/dL (3.5-5.0); Alkaline Phosphatase 125 U/L (38-126); Anion Gap 7 mmol/L; Blood Urea Nitrogen 24 mg/dL (9-20); Calcium 9.2 mg/dL (8.4-10.2); Carbon Dioxide 25 mmol/L (22-30); Chloride 106 mmol/L (98-107); Glucose 136 mg/dL (74-99); Potassium 5.3 mmol/L (3.5-5.1); Sodium 138 mmol/L (137-145); Total Bilirubin 1.7 mg/dL (0.2-1.3); Total Protein 7.1 g/dL (6.3-8.2)
[2018-11-24 21:50] LABS: INR 1.1 (<1.2); Prothrombin Time 11.4 sec (9.0-12.0)
[2018-11-24 21:51] LABS: Partial Thromboplastin Time 26.4 sec (22.0-30.0)
[2018-11-24] MEDS ORDERED: FUROSEMIDE 10 MG/ML 2 ML VIAL IV STA (22:02)
[2018-11-25] MEDS: HYDROcodone/APAP 7.5-325MG 1 EACH TAB PO PRN (03:44)
[2018-11-25] MEDS ORDERED: NITROGLYCERIN SL TABS 0.4 MG TAB SUBLINGUAL PRN (08:32)
[2018-11-25] MEDS: ONDANSETRON 4 MG/2 ML VIAL IVP PRN (08:48)
[2018-11-25] MEDS ORDERED: FUROSEMIDE 80 MG TAB PO SCH (09:00)
[2018-11-25] MEDS: ATORVASTATIN 80 MG TAB PO SCH (11:13)
[2018-11-25] MEDS: METOPROLOL TARTRATE 12.5 MG TAB PO SCH (11:13)
[2018-11-25] MEDS: SERTRALINE 50 MG TAB PO SCH (11:13)
[2018-11-25] MEDS: SPIRONOLACTONE 25 MG TAB PO SCH ×2 (11:13→20:51)
[2018-11-25] MEDS: LISINOPRIL 2.5 MG TAB PO SCH (11:13)
[2018-11-25] MEDS: ASPIRIN 81 MG PO SCH (11:14)
[2018-11-25] MEDS: metFORMIN 500 MG TAB PO SCH ×2 (11:16→18:38)
[2018-11-25 11:42] LABS: Glucose,Whole Blood 171 mg/dL (75-99)
[2018-11-25] MEDS: INSULIN ASPART (NovoLOG) 100 UNIT/ML VIAL SQ SCH ×3 (12:32→20:51)
[2018-11-25] MEDS: FUROSEMIDE 10 MG/ML 10 ML VIAL IV SCH (15:15)
[2018-11-25 15:26] VITALS: BMI 32.8
--- NOTE | 2018-11-25 16:40 | HP ---
HISTORY AND PHYSICAL DATE OF ADMISSION: 11/24/2018 DATE OF SERVICE: 11/25/2018 PRESENTING COMPLAINT: Fall. HISTORY OF PRESENTING COMPLAINT: This is a pleasant 73-year-old patient who follows with Dr. Brown. Chronic stable medical conditions include congestive heart failure, EF 20% to 25%, diabetes, hyperlipidemia, hypertension, peripheral neuropathy, COPD, coronary artery disease with prior stent. The patient yesterday had gone for his doctor's appointment, came back home, took the first step getting into the house and then fell backwards, hitting his head. The patient never passed out. The patient does have a walker. The patient otherwise has not been getting dizzy or lightheaded. On closer questioning, he did say it was pretty cold outside, and when the EMS came, they could not even get a pulse ox, as it was pretty cold. There was no chest pain. No palpitations. Initial workup in the ER was otherwise unremarkable. No change in shortness of breath from the baseline. No fever. No chills. The patient's head still hurts a bit, but otherwise he feels fine. Oral intake has not changed. The patient did confirm that he had eaten that morning and he was not fasting or missed a meal that might explain his presentation. There was no chest pain or palpitation. REVIEW OF SYSTEMS: CONSTITUTIONAL: None. HEENT: Some pain at the site where he bumped his head. RESPIRATORY: None. CARDIOVASCULAR: None. GASTROINTESTINAL: None. GENITOURINARY: None. MUSCULOSKELETAL: None. DERMATOLOGICAL: None. HEMATOLOGICAL: None. LYMPHATICS: None. PSYCHIATRY: None. NEUROLOGICAL: Numbness and tingling in the feet. Additionally, patient has some chronic skin changes in lower extremity. PAST MEDICAL HISTORY: 1. CHF; EF 20% to 25%. 2. Chronic lower extremity cellulitis. 3. Diabetes, type 2. 4. Hyperlipidemia. 5. Hypertension. 6. Peripheral neuropathy. 7. COPD. 8. Coronary artery disease with stent. 9. Right hand tenosynovitis. 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 PAST SURGICAL HISTORY: 1. Appendectomy. 2. Cholecystectomy. 3. Cardiac cath with stent. 4. Cervical fusion. 5. Laminectomy. 6. Left carpal tunnel release. 7. Cataract, left eye. 8. Coronary stents x2 in September of 2015. Had a PTBA right leg with stents. 9. AICD in 2014. SOCIAL HISTORY: . 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 The patient has been smoking since age of 14, averaged about a pack and a half a day, now down to about half a pack a day. Denies any illicit drug use. No alcohol. FAMILY HISTORY: Coronary artery disease, arthritis. HOME MEDICATIONS: 1. Glucophage 1000 mg b.i.d. 2. Aldactone 25 mg b.i.d. 3. Zoloft 50 mg daily. 4. Nitrostat 0.4 sublingually q.5 p.r.n. 5. Remeron 15 mg at bedtime. 6. Lopressor 12.5 p.o. daily. 7. Zestril 2.5 mg p.o. daily. 8. Shiro 7.5 one tablet q.6 p.r.n. 9. Lasix 80 mg p.o. b.i.d. 10.Lipitor 80 mg daily. 11.Aspirin 81 mg p.o. daily. ALLERGIES: PENICILLIN, NEURONTIN. PHYSICAL EXAMINATION: VITAL SIGNS ON PRESENTATION: Temperature 97.8, pulse 72, respiration 16, blood pressure 125/72, repeat was 100/63, pulse ox 93% on room air. GENERAL APPEARANCE: Well built; BMI 32.8. Sitting at the edge of the bed, awake. EYES: Pupils equal. Conjunctivae normal. HEENT: External appearance of nose and ears normal. Oral cavity normal. NECK: JVD not raised. Mass not palpable. RESPIRATORY: Effort normal. LUNGS: Decreased breath sounds. CARDIOVASCULAR: First and second sounds normal. No edema. ABDOMEN: Soft, non-tender. Liver and spleen not palpable. LYMPHATIC: No lymph node palpable in neck or axillae. PSYCHIATRY: Alert and oriented x3. Mood and affect normal. NEUROLOGICAL: Pupils equal. Cranial nerves grossly intact. Power and sensation grossly intact. INVESTIGATIONS: White count 8.2, hemoglobin 11.4, potassium 5.3, BUN 24, creatinine 0.93. Accu-Cheks are noted. Troponin negative. Chest x-ray film, personally reviewed by me, shows left pleural effusion, pulmonary edema, fluid in the fissures. Lumbar spine x-ray: No fracture reported. Hip, pelvis x- ray: Nil acute. Head and spine CT scan: Again no fracture reported; some chronic findings in there. Two-D echocardiogram from October of this year shows multiple wall motion hypokinesis, EF 20% to 25%. ASSESSMENT: 1. Acute on chronic congestive heart failure exacerbation from systolic dysfunction, ejection fraction 20% to 25%, underlying coronary artery disease. 2. Diabetes mellitus, type 2, on oral hypoglycemic. 3. Hyperlipidemia. 4. Essential hypertension. 5. Peripheral neuropathy secondary to diabetes. 6. Chronic obstructive pulmonary disease in an ex-smoker. 7. Coronary artery disease with prior history of stent. 8. Episode of syncope. Cannot rule out underlying arrhythmia. Could well be vasovagal; it was really cold outside. PLAN: Home medications are resumed. Patient will be put on IV Lasix. Care was discussed with the patient. Put on telemetry. Follow electrolytes closely. JOSEPH / YAKELIN: [id number] /
[2018-11-25 17:15] LABS: Glucose,Whole Blood 123 mg/dL (75-99)
[2018-11-25 20:44] LABS: Glucose,Whole Blood 196 mg/dL (75-99)
[2018-11-25] MEDS: MIRTAZAPINE 15 MG TAB PO SCH (20:51)
[2018-11-26] MEDS: FUROSEMIDE 10 MG/ML 10 ML VIAL IV SCH ×2 (00:45→08:03)
[2018-11-26] MEDS: ONDANSETRON 4 MG/2 ML VIAL IVP PRN (04:21)
[2018-11-26 07:25] LABS: Glucose,Whole Blood 176 mg/dL (75-99)
[2018-11-26] MEDS: metFORMIN 500 MG TAB PO SCH ×2 (08:03→17:10)
[2018-11-26] MEDS: INSULIN ASPART (NovoLOG) 100 UNIT/ML VIAL SQ SCH ×4 (08:04→20:40)
[2018-11-26 09:05] LABS: Potassium 4.9 mmol/L (3.5-5.1)
[2018-11-26] MEDS: METOPROLOL TARTRATE 12.5 MG TAB PO SCH (09:57)
[2018-11-26] MEDS: ATORVASTATIN 80 MG TAB PO SCH (09:58)
[2018-11-26] MEDS: SERTRALINE 50 MG TAB PO SCH (09:58)
[2018-11-26] MEDS: LISINOPRIL 2.5 MG TAB PO SCH (09:58)
[2018-11-26] MEDS: ASPIRIN 81 MG PO SCH (09:58)
[2018-11-26] MEDS: SPIRONOLACTONE 25 MG TAB PO SCH ×2 (09:58→20:40)
[2018-11-26 12:23] LABS: Glucose,Whole Blood 131 mg/dL (75-99)
--- NOTE | 2018-11-26 13:25 | P.CRDCN ---
History of Present Illness History of present illness: This is a pleasant 73-year-old male past medical history significant for cardiomyopathy, chronic systolic heart failure with EF of 20-25%, coronary artery disease s/p stent placement proximal LAD and PLV branch of the RCA with residual intermediate disease involving the left main coronary artery and left circumflex artery, peripheral vascular disease, status post prophylactic AICD, hypertension, diabetes mellitus, chronic nicotine dependence and dyslipidemia. He follows in the office with Dr. Boyle. He states yesterday after returning from a routine visit with his primary care physician he was attempting to step from his driveway to his porch and he lost his footing and fell backwards. He landed on his back and was unable to get up. He did have his cell phone with Kypha m so he called 911 for assistance. He denies having any symptoms of dizziness or lightheaded feeling. He states it was simply a trip and fall. There was no loss of consciousness. Incidentally upon arrival to the emergency department chest x-ray was obtained revealing prominent pulmonary edema with a large left pleural effusion. He was started on IV Lasix and we are consulted to see the patient. He is seen and examined sitting up in his room in no acute distress. He is up ambulating with a walker with physical therapy without difficulty. He denies any symptoms of shortness of breath, dizziness, chest pain, nausea, vomiting or diaphoresis. He does have significant lower extremity edema which she states to be chronic. Current cardiac medications include aspirin 81 mg daily, atorvastatin 80 mg daily, Lasix 80 mg twice a day, lisinopril 2.5 mg daily, Lopressor 12.5 mg daily and Aldactone 25 mg twice a day. He is maintaining a negative fluid balance since admission. Laboratory data reviewed, sodium 137, potassium 4.9, creatinine 1, NT proBNP on admission 3000, cardiac enzymes negative 1, hemoglobin 11.4, platelets 195. He recently underwent echocardiogram in October 2018 revealing severely impaired LV systolic function with ejection fraction 20-25%, basal inferior, basal inferior septal, mid inferoseptal and apical wall motion hypokinesia, mild aortic valve sclerosis, mild aortic regurgitation, mild aortic stenosis, and chronic large left pleural effusion. At the time of my exam: CONSTITUTIONAL: Denies fever. Denies chills. EYES: Denies blurred vision. Denies vision changes. Denies eye pain. EARS, NOSE, MOUTH & THROAT: Denies headache. Denies sore throat. Denies ear pain. CARDIOVASCULAR: Denies chest pain. Denies shortness of breath. Denies orthopnea. Denies PND. Denies palpitations. RESPIRATORY: Denies cough. GASTROINTESTINAL: Denies abdominal pain. Denies diarrhea. Denies constipation. Denies nausea. Denies vomiting. MUSCULOSKELETAL: Denies myalgias. INTEGUMENTARY: Denies pruitis. Denies rash. NEUROLOGIC: Denies numbness. Denies tingling. Denies weakness. PSYCHIATRIC: Denies anxiety. Denies depression. ENDOCRINE: Denies fatigue. Denies weight change. Denies polydipsia. Denies polyurina. GENITOURINARY: Denies burning, hematuria or urgency with micturation. HEMATOLOGIC: Denies history of anemia. Denies bleeding. Blood pressure 117/55 heart rate 70 afebrile maintaining oxygen saturation on room air GENERAL: This is a 73-year-old male in no apparent distress at the time of my examination. HEENT: Head is atraumatic, normocephalic. Pupils are equal, round. Sclerae anicteric. Conjunctivae are clear. Mucous membranes of the mouth are moist. Neck is supple. There is no jugular venous distention. No carotid bruit is heard. LUNGS: Clear to auscultation no wheezes, rales or rhonchi. No chest wall tenderness is noted on palpation or with deep breathing. HEART: Regular rate and rhythm with systolic ejection murmur at the base, no rubs or gallops. S1 and S2 heard. ABDOMEN: Soft, nontender. Bowel sounds are heard. No organomegaly noted. EXTREMITIES: 1+ bilateral lower extremity edema with redness suggestive of chronic venous stasis. No calf tenderness noted. VASCULAR: Radial and dorsalis pedis pulses palpated, no evidence of clubbing. NEUROLOGIC: Patient is awake, alert and oriented x3. ASSESSMENT Fall due to trip on step going into the house Chronic ischemic cardiomyopathy, EF 20-25% Chronic systolic heart failure with chronic lower extremity edema. He was given IV lasix since admission and seems to have improved from a pulmonary prospective. Lungs are clear with no rales. Clinically he does not have fluid overload. Hypertension Dyslipidemia Coronary artery disease s/p stent placement Peripheral vascular disease COPD Chronic nicotine dependence, pt has no interest in cessation PLAN Transition to oral diuretics. Advised patient to use bilateral SANGEETA hose and maintain a low-salt diet. Smoking cessation highly recommended. Follow up upon discharge with Dr. Boyle. Thank you kindly for this consultation. Nurse Practitioner note has been reviewed, I agree with a documented findings and plan of care. Patient was seen and examined. Past Medical History Past Medical History: Chest Pain / Angina, Heart Failure, Diabetes Mellitus, Hyperlipidemia, Hypertension, Myocardial Infarction (ME), Rheumatoid Arthritis (RA) Additional Past Medical History / Comment(s): past edema in legs ,2016 rt.foot(heel) wound, bilat leg and hand neuropathy(unable to take gabapentin), tx at [facility]. for rt hand tenosynovitis, poor circulation Last Myocardial Infarction Date:: 2010 History of Any Multi-Drug Resistant Organisms: MRSA, VRE Date of last positivie culture/infection: 12/08/15 MDRO Source:: RIGHT FOOT MRSA AND VRE Past Surgical History: Appendectomy, Cholecystectomy, Heart Catheterization With Stent, Hernia Repair, Tonsillectomy Additional Past Surgical History / Comment(s): cervical fusion laminactomy , left carpal tunnel release, cataract left eye, HEART STENT X2, 10-16-15 PTBA /RT LEG STENT, rt hand x2 surgery, umb hernia, past picc line Past Anesthesia/Blood Transfusion Reactions: Postoperative Nausea & Vomiting (PONV) Additional Past Anesthesia/Blood Transfusion Reaction / Comment(s): .PT STATED AFTER HAND SX HAD DIFFICULTY URINATING AND PAIN MEDS CONSTIPATE HIM. Date of Last Stent Placement:: 12/2013 Type of Cardiac Device: AICD Device Placement Date:: 2014 Past Psychological History: No Psychological Hx Reported Additional Psychological History / Comment(s): PT LIVES AT HOME WITH HIS (IS CAREGIVER TO HIS ). 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 Smoking Status: Current every day smoker Past Alcohol Use History: None Reported Additional Past Alcohol Use History / Comment(s): PT STARTED SMOKING AT AGE 14 WORKED UP TO 1.5 PPD BUT HAS CUT DOWN TO 1/2 PPD. He denies any marijuana or illicit drug use. He denies any alcohol use. 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 No pets in the home. Past Drug Use History: None Reported - Past Family History Mother Additional Family Medical History / Comment(s): PT STATED MOM WAS HEALTHY BUT IN OLDER AGE GOT PNE- FROM COMPLICATIONS OF PNE. Father Family Medical History: Osteoarthritis (OA) Additional Family Medical History / Comment(s): ULCERS, HEART PROBLEMS HAD BYPASS,BACK SURGURY Medications and Allergies Home Medications Medication Instructions Recorded Confirmed Type HYDROcodone/APAP 7.5-325MG [[place] 1 tab PO Q6HR PRN 11/07/15 11/24/18 History 7.5-325] Aspirin [Adult Low Dose Aspirin EC] 81 mg PO DAILY 04/10/16 11/24/18 History Atorvastatin [Lipitor] 80 mg PO DAILY 08/06/16 11/24/18 History metFORMIN HCL [Glucophage] 1,000 mg PO BID 08/28/17 11/24/18 History Metoprolol Tartrate [Lopressor] 12.5 mg PO DAILY 08/23/18 11/24/18 History Lisinopril [Zestril] 2.5 mg PO DAILY #90 tab 08/27/18 11/24/18 Rx Mirtazapine [Remeron] 15 mg PO HS 11/02/18 11/24/18 History Nitroglycerin Sl Tabs [Nitrostat] 0.4 mg SL Q5M PRN 11/02/18 11/24/18 History Sertraline [Zoloft] 50 mg PO DAILY 11/02/18 11/24/18 History Furosemide [Lasix] 80 mg PO BID@0900,1600 #60 tab 11/04/18 11/24/18 Rx Spironolactone [Aldactone] 25 mg PO BID #60 tab 11/04/18 11/24/18 Rx Allergies Allergy/AdvReac Type Severity Reaction Status Date / Time Penicillins Allergy Rash/Hives Verified 11/24/18 19:05 gabapentin [From Neurontin] AdvReac Nausea Verified 11/24/18 19:05 Physical Exam Vitals: Vital Signs Temp Pulse Resp BP Pulse Ox 11/26/18 06:58 98.3 F 70 16 117/55 92 L 11/26/18 00:43 98.5 F 77 16 129/80 96 11/25/18 23:50 16 11/25/18 20:40 66 16 11/25/18 20:34 97.9 F 66 16 122/75 93 L 11/25/18 15:23 58 L 18 11/25/18 14:45 98.4 F 58 L 105/67 94 L Intake and Output 11/25/18 11/26/18 11/26/18 22:59 06:59 14:59 Intake Total 600 75 Output Total 270 900 250 Balance 330 -825 -250 Intake: Oral 600 75 Output: Urine 270 900 250 Other: Voiding Method Urinal Urinal Urinal # Voids 2 2 1 Weight 106.594 kg Results 11/24/18 21:14 11/26/18 07:08 Comprehensive Metabolic Panel 11/26/18 Range/Units 07:08 Sodium 137 (137-145) mmol/L Potassium 4.9 (3.5-5.1) mmol/L Chloride 103 (98-107) mmol/L Carbon Dioxide 27 (22-30) mmol/L BUN 24 H (9-20) mg/dL Creatinine 1.00 (0.66-1.25) mg/dL Glucose 145 H (74-99) mg/dL Calcium 9.0 (8.4-10.2) mg/dL Current Medications Generic Name Dose Route Start Last Admin Trade Name Freq PRN Reason Stop Dose Admin Hydrocodone Bitart/Acetaminophen 1 each 11/25/18 02:10 11/25/18 03:44 [place]el[place] 7.5-325 PO 1 each Q6HR PRN Administration Pain Aspirin 81 mg 11/25/18 09:00 11/26/18 09:58 Aspirin PO 81 mg DAILY [facility]Y Administration Atorvastatin Calcium 80 mg 11/25/18 09:00 11/26/18 09:58 Lipitor PO 80 mg DAILY [facility]Y Administration Furosemide 80 mg 11/26/18 16:00 Lasix PO BID@0900,1600 [facility] Insulin Aspart 0 unit 11/25/18 12:30 11/26/18 08:04 Novolog SQ 3 unit ACHS [facility]VY Administration Protocol Lisinopril 2.5 mg 11/25/18 09:00 11/26/18 09:58 Zestril PO 2.5 mg DAILY [facility] Administration Metformin HCl 1,000 mg 11/25/18 09:00 11/26/18 08:03 Glucophage PO 1,000 mg BID-W/MEALS [facility]VY Administration Metoprolol Tartrate 12.5 mg 11/25/18 09:00 11/26/18 09:57 Lopressor PO 12.5 mg DAILY [facility] Administration Mirtazapine 15 mg 11/25/18 21:00 11/25/18 20:51 Remeron PO 15 mg HS [facility]Y Administration Nitroglycerin 0.4 mg 11/25/18 08:32 Nitrostat SUBLINGUAL Q5M PRN Chest Pain Ondansetron HCl 4 mg 11/25/18 08:32 11/26/18 04:21 Zofran IVP 4 mg Q6HR PRN Administration Nausea And Vomiting Sertraline HCl 50 mg 11/25/18 09:00 11/26/18 09:58 Zoloft PO 50 mg DAILY [facility] Administration Spironolactone 25 mg 11/25/18 09:00 11/26/18 09:58 Aldactone PO 25 mg BID CHEVY Administration Intake and Output 11/25/18 11/26/18 11/26/18 22:59 06:59 14:59 Intake Total 600 75 Output Total 270 900 250 Balance 330 825 -250 Intake: Oral 600 75 Output: Urine 270 900 250 Other: Voiding Method Urinal Urinal Urinal # Voids 2 2 1 Weight 106.594 kg 11/24/18 21:14 11/26/18 07:08
--- NOTE | 2018-11-26 14:30 | PN ---
PROGRESS NOTE DATE OF SERVICE: 11/26/2018 PRESENTING COMPLAINT: Tired. INTERVAL HISTORY: This patient presented with fall, felt to have CHF exacerbation, started on IV Lasix breathing is better this morning. Some lower extremity edema. Sitting at the edge of the bed. No chest pain. REVIEW OF SYSTEMS: Done for constitutional, cardiovascular, GI, pulmonary; relevant findings as above. CURRENT MEDICATIONS: Reviewed that include IV Lasix. PHYSICAL EXAMINATION: Temperature 98.3, pulse 72, respiration 16, blood pressure 110/55, pulse ox 92% on room air. GENERAL APPEARANCE: Sitting at the edge of the bed, a bit tired. EYES: Pupils equal, conjunctivae normal. NECK: JVD unable to assess. Mass not palpable. RESPIRATORY: Effort increased. LUNGS: Decreased breath sounds. CARDIOVASCULAR: First and second sounds normal, some edema. ABDOMEN: Soft, nontender. Liver and spleen not palpable. PSYCHIATRY: Alert and oriented x3, mood and affect normal. INVESTIGATIONS: Potassium 4.9, BUN 24, creatinine 1.0. proBNP 3060. ASSESSMENT: 1. Acute on chronic congestive heart failure exacerbation from systolic dysfunction, ejection fraction 20% to 25% from underlying coronary artery disease, responding well to IV Lasix. 2. Diabetes mellitus type 2, on oral hypoglycemic. 3. Hyperlipidemia. 4. Essential hypertension. 5. Peripheral neuropathy secondary to diabetes. 6. Chronic obstructive pulmonary disease in an ex-smoker. 7. Coronary artery disease, prior history of stent. 8. Vasovagal syncope on admission. PLAN: Patient is responding well to IV Lasix should be able to be switched over to oral Lasix and it remains good, home tomorrow. MMODL / IJN: [id number] /
[2018-11-26 17:08] LABS: Glucose,Whole Blood 131 mg/dL (75-99)
[2018-11-26] MEDS: FUROSEMIDE 80 MG TAB PO SCH (17:10)
[2018-11-26 18:23] LABS: Hemoglobin A1C 6.7 % (4.0-6.0)
[2018-11-26] MEDS: HYDROcodone/APAP 7.5-325MG 1 EACH TAB PO PRN (19:09)
[2018-11-26 20:27] LABS: Glucose,Whole Blood 176 mg/dL (75-99)
[2018-11-26] MEDS: MIRTAZAPINE 15 MG TAB PO SCH (20:40)
[2018-11-27 01:46] VITALS: RESP 16
[2018-11-27 07:17] LABS: Glucose,Whole Blood 124 mg/dL (75-99)
[2018-11-27] MEDS: HYDROcodone/APAP 7.5-325MG 1 EACH TAB PO PRN (07:19)
[2018-11-27] MEDS: INSULIN ASPART (NovoLOG) 100 UNIT/ML VIAL SQ SCH ×2 (07:19→12:27)
[2018-11-27] MEDS: metFORMIN 500 MG TAB PO SCH (07:24)
[2018-11-27 08:40] VITALS: BP 112/73; PULSE 68; TEMP 97.9
[2018-11-27 09:08] LABS: Calcium 9.2 mg/dL (8.4-10.2); Potassium 4.7 mmol/L (3.5-5.1)
[2018-11-27] MEDS: SERTRALINE 50 MG TAB PO SCH (10:13)
[2018-11-27] MEDS: SPIRONOLACTONE 25 MG TAB PO SCH (10:13)
[2018-11-27] MEDS: FUROSEMIDE 80 MG TAB PO SCH (10:13)
[2018-11-27] MEDS: ASPIRIN 81 MG PO SCH (10:13)
[2018-11-27] MEDS: ATORVASTATIN 80 MG TAB PO SCH (10:13)
[2018-11-27] MEDS: LISINOPRIL 2.5 MG TAB PO SCH (10:13)
[2018-11-27] MEDS: METOPROLOL TARTRATE 12.5 MG TAB PO SCH (10:13)
[2018-11-27 11:55] LABS: Glucose,Whole Blood 150 mg/dL (75-99)
--- NOTE | 2018-11-28 14:49 | DS ---
DISCHARGE SUMMARY DATE OF ADMISSION: 11/24/2018 DATE OF DISCHARGE: 11/27/2018 FINAL DIAGNOSES: 1. Acute on chronic congestive heart failure exacerbation from systolic dysfunction, ejection fraction 20% to 25% from underlying coronary artery disease. 2. Diabetes mellitus type 2, on oral hypoglycemic. 3. Hyperlipidemia. 4. Essential hypertension. 5. Peripheral neuropathy secondary to diabetes. 6. Chronic obstructive pulmonary disease in an ex-smoker. 7. Coronary artery disease, prior history of stent. 8. Vasovagal syncope on admission. HOSPITAL COURSE: This patient presented with CHF exacerbation also had vasovagal syncope on presentation. [place] to be from cold weather outside. Given IV Lasix to which he responded well. Care was discussed with the patient. CONSULTATION: Dr. Bhatia from Cardiology. PHYSICAL EXAMINATION: On examination, temperature 97.9, pulse 68, blood pressure 112/73, pulse ox 94% on room air. LUNGS: Improved air entry. LABS: BUN 25, creatinine 1.06. DISCHARGE MEDICATIONS: 1. [place] 7.5 one tablet q.6 p.r.n. 2. Aspirin 81 mg a day. 3. Lipitor 80 mg a day. 4. Glucophage 1000 mg b.i.d. 5. Lopressor 12.5 p.o. daily. 6. Zestril 2.5 p.o. daily. 7. Remeron 15 mg q.h.s. 8. Nitrostat 0.4 sublingual q.5 p.r.n. 9. Zoloft 50 mg p.o. daily. 10.Aldactone 25 mg b.i.d. 11.Lasix 80 mg b.i.d. Follow up with Dr. Brown on 12/01/2018. Follow up with Dr. Boyle on 12/08/2018. MMODL / IJN: [id number] /
== END 2018-11-27 13:17 | disposition home health service (06) ==
LOC: EC 18:39 → 4SSUR 20:57
PROVIDERS: ADMIT Hospitalist; ATTEND Hospitalist
DX: I11.0 Hypertensive heart disease with heart failure (principal); I50.23 Acute on chronic systolic (congestive) heart failure; E11.42 Type 2 diabetes mellitus with diabetic polyneuropathy; E11.51 Type 2 diabetes mellitus with diabetic peripheral angiopathy without gangrene; R55 Syncope and collapse; E78.5 Hyperlipidemia, unspecified; J44.9 Chronic obstructive pulmonary disease, unspecified; I25.10 Atherosclerotic heart disease of native coronary artery without angina pectoris; Z95.5 Presence of coronary angioplasty implant and graft; E87.5 Hyperkalemia; F17.210 Nicotine dependence, cigarettes, uncomplicated; I25.2 Old myocardial infarction; Z98.1 Arthrodesis status; Z90.49 Acquired absence of other specified parts of digestive tract; I35.2 Nonrheumatic aortic (valve) stenosis with insufficiency; M06.9 Rheumatoid arthritis, unspecified; I25.5 Ischemic cardiomyopathy; Z79.82 Long term (current) use of aspirin; Z79.84 Long term (current) use of oral hypoglycemic drugs; Z79.899 Other long term (current) drug therapy; Z95.810 Presence of automatic (implantable) cardiac defibrillator; Y92.008 Other place in unspecified non-institutional (private) residence as the place of occurrence of the external cause; W10.8XXA Fall (on) (from) other stairs and steps, initial encounter; Z82.49 Family history of ischemic heart disease and other diseases of the circulatory system
CPT/HCPCS: 96376 ×2; 96375; 96374; 99285; 36415; 93005; 97162; 97535 ×2; 97166; 83880 ×2; 80053; 80048 ×2; 84484; 85025; 85610; 85730; 83036; 72100; 73521; 71046; 72125; 70450; G0378 ×4; J1940 ×3; J2405 ×2

== ENCOUNTER 2019-01-15 13:10 | Inpatient (IN) | payer MEDICARE, OTHER ==
[2019-01-15] MEDS ORDERED: ALBUTEROL NEBULIZED 2.5 MG/3 ML INHALATION STA (14:16)
[2019-01-15] MEDS ORDERED: FUROSEMIDE 10 MG/ML 4 ML VIAL IV STA (14:16)
[2019-01-15] MEDS ORDERED: methylPREDNISolone SOD SUCCI 125 MG/2 ML VIAL IV STA (14:16)
[2019-01-15 14:30] LABS: Basophils % (A) 0 %; Eosinophils # (A) 0.3 k/uL (0-0.7); Eosinophils % (A) 4 %; HCT 32.9 % (39.0-53.0); HGB 10.7 gm/dL (13.0-17.5); Lymphocytes # (A) 0.6 k/uL (1.0-4.8); Lymphocytes % (A) 8 %; MCH 29.1 pg (25.0-35.0); MCHC 32.5 g/dL (31.0-37.0); MCV 89.5 fL (80.0-100.0); Mean Platelet Volume 8.2; Monocytes # (A) 0.5 k/uL (0-1.0); Monocytes % (A) 6 %; Neutrophils # (A) 5.8 k/uL (1.3-7.7); Neutrophils % (A) 80 %; Platelet Count 191 k/uL (150-450); RBC 3.67 m/uL (4.30-5.90); RDW 14.6 % (11.5-15.5); WBC 7.2 k/uL (3.8-10.6)
[2019-01-15 14:39] LABS: INR 1.1 (<1.2); Partial Thromboplastin Time 25.8 sec (22.0-30.0); Prothrombin Time 11.1 sec (9.0-12.0)
[2019-01-15 14:40] LABS: ALT 22 U/L (21-72); AST 20 U/L (17-59); African American GFR (CKD) >90 (>60 ml/min/1.73 sqM); Albumin 3.3 g/dL (3.5-5.0); Alkaline Phosphatase 129 U/L (38-126); Anion Gap 9 mmol/L; Blood Urea Nitrogen 18 mg/dL (9-20); Calcium 8.7 mg/dL (8.4-10.2); Carbon Dioxide 21 mmol/L (22-30); Chloride 109 mmol/L (98-107); Creatine Kinase 81 U/L (55-170); Glucose 170 mg/dL (74-99); Potassium 4.1 mmol/L (3.5-5.1); Sodium 139 mmol/L (137-145); Total Bilirubin 1.5 mg/dL (0.2-1.3); Total Protein 6.6 g/dL (6.3-8.2)
--- NOTE | 2019-01-15 14:44 | ED ---
General Adult HPI - General Chief complaint: Shortness of Breath Stated complaint: Weakness Source: patient, EMS, RN notes reviewed, old records reviewed Mode of arrival: EMS Limitations: physical limitation - History of Present Illness Initial comments: Chief complaint and history of present illness this is a 74-year-old male brought in by ambulance because of complaint of shortness of breath and an enlarging ulcer on his left heel. The patient reports she gained 5 pounds in 2 days. Shortness of breath increased over the past 24-48 hours. He's also increased leg swelling. Long history of congestive heart failure as well as MRSA infections. His family physician told her to come the hospital for both reasons. Eyes pain - Related Data Home Medications Medication Instructions Recorded Confirmed HYDROcodone/APAP 7.5-325MG [[place] 1 tab PO Q6HR PRN 11/07/15 11/24/18 7.5-325] Aspirin [Adult Low Dose Aspirin EC] 81 mg PO DAILY 04/10/16 11/24/18 Atorvastatin [Lipitor] 80 mg PO DAILY 08/06/16 11/24/18 metFORMIN HCL [Glucophage] 1,000 mg PO BID 08/28/17 11/24/18 Metoprolol Tartrate [Lopressor] 12.5 mg PO DAILY 08/23/18 11/24/18 Mirtazapine [Remeron] 15 mg PO HS 11/02/18 11/24/18 Nitroglycerin Sl Tabs [Nitrostat] 0.4 mg SL Q5M PRN 11/02/18 11/24/18 Sertraline [Zoloft] 50 mg PO DAILY 11/02/18 11/24/18 Previous Rx's Medication Instructions Recorded Lisinopril [Zestril] 2.5 mg PO DAILY #90 tab 08/27/18 Spironolactone [Aldactone] 25 mg PO BID #60 tab 11/04/18 Furosemide [Lasix] 80 mg PO BID@0900,1600 tab 11/27/18 Allergies Allergy/AdvReac Type Severity Reaction Status Date / Time Penicillins Allergy Rash/Hives Verified 01/15/19 13:42 gabapentin [From Neurontin] AdvReac Nausea Verified 01/15/19 13:42 Review of Systems ROS Statement: Those systems with pertinent positive or pertinent negative responses have been documented in the HPI. Review of systems. No headache or visual acuity changes he is short of breath. Placed on O2. Denies chest pain denies nausea vomiting or diarrhea. He has bilateral peripheral edema up to the knees. Motion increases weakness. Shortness of breath is increased over the past 2 days. All systems reviewed. Patient's past medical problems significant for asthma and diabetes, he's had a heart attack with 2 stents placed. He has history of hyperlipidemia hypertension. He also has rheumatoid arthritis. He has had ulcers in both feet most recently a small ulcers become significantly enlarged on his left heel. He states the visiting nurses have treated his legs. Patient's surgeries include appendectomy cholecystectomy heart catheterization with 2 stents, hernia repair tonsillectomy cervical fusion, laminectomy and carpal tunnel as well as cataracts. The patient had a history of MRSA and VRE. The patient's family history significant for with skin cancer. The patient's ALLERGIES are penicillin which causes hives gabapentin that causes nausea. He does smoke strongly encouraged to stop. Denies alcohol use ROS Other: All systems not noted in ROS Statement are negative. Past Medical History Past Medical History: Chest Pain / Angina, Heart Failure, Diabetes Mellitus, Hyperlipidemia, Hypertension, Myocardial Infarction ([place]), Rheumatoid Arthritis ([place]) Additional Past Medical History / Comment(s): past edema in legs ,2016 rt.foot(heel) wound, bilat leg and hand neuropathy(unable to take gabapentin), tx at [facility]. for rt hand tenosynovitis, poor circulation Last Myocardial Infarction Date:: 2010 History of Any Multi-Drug Resistant Organisms: MRSA, VRE Date of last positivie culture/infection: 12/08/15 MDRO Source:: RIGHT FOOT MRSA AND VRE Past Surgical History: Appendectomy, Cholecystectomy, Heart Catheterization With Stent, Hernia Repair, Tonsillectomy Additional Past Surgical History / Comment(s): cervical fusion laminactomy , left carpal tunnel release, cataract left eye, HEART STENT X2, 10-16-15 PTBA /RT LEG STENT, rt hand x2 surgery, umb hernia, past picc line Past Anesthesia/Blood Transfusion Reactions: Postoperative Nausea & Vomiting (PO NV) Additional Past Anesthesia/Blood Transfusion Reaction / Comment(s): .PT STATED AFTER HAND SX HAD DIFFICULTY URINATING AND PAIN MEDS CONSTIPATE HIM. Date of Last Stent Placement:: 12/2013 Type of Cardiac Device: AICD Device Placement Date:: 2014 Past Psychological History: No Psychological Hx Reported Smoking Status: Current every day smoker Past Alcohol Use History: None Reported Past Drug Use History: None Reported - Past Family History Mother Additional Family Medical History / Comment(s): PT STATED MOM WAS HEALTHY BUT IN OLDER AGE GOT PNE- FROM COMPLICATIONS OF PNE. Father Family Medical History: Osteoarthritis (OA) Additional Family Medical History / Comment(s): ULCERS, HEART PROBLEMS HAD BYPASS,BACK SURGURY General Exam - General Exam Comments Initial Comments: General: The patient is awake and alert, here because of shortness of breath and enlarging heel ulcer left heel. Vital signs shows temperature 98.1 pulse 65 respiratory rate 20 pulse ox 97% room air blood pressure 136/70 Eye: Pupils are equal, round and reactive to light, extra-ocular movements are intact; there is normal conjunctiva bilaterally. No signs of icterus. Ears, nose, mouth and throat: There are moist mucous membranes and no oral lesions. Neck: The neck is supple, no carotid bruit there is no tenderness ' Cardiovascular: There is a regular rate and rhythm. No murmur, rub or gallop is appreciated. Respiratory: Decreased air entry bilaterally. History of COPD. Fine crepitant rales to the right base. Gastrointestinal: Soft, non-distended, non-tender abdomen without masses or organomegaly noted. There is no rebound or guarding present. No CVA tenderness. Bowel sounds are unremarkable. Back: There is no tenderness to palpation in the midline. There is no obvious deformity. No rashes noted. Musculoskeletal: Normal ROM, no tenderness, peripheral edema from toes to knees. Patient's legs are wrapped. There is just wrapped yesterday or today and the patient has an enlarging heel ulcer on the right heel by history. Neurological: No focal or lateralizing findings Skin: Skin is warm and dry and no rashes or lesions are noted. Psychiatric: Cooperative, . Limitations: physical limitation Course Vital Signs 01/15/19 01/15/19 01/15/19 13:37 15:26 15:41 Temperature 98.1 F Pulse Rate 65 67 66 Respiratory 20 14 14 Rate Blood Pressure 136/70 O2 Sat by Pulse 97 Oximetry 01/15/19 16:05 Temperature Pulse Rate 80 Respiratory 18 Rate Blood Pressure 129/61 O2 Sat by Pulse 99 Oximetry EKG Findings - EKG Comments: EKG Findings:: EKG was done and reviewed at 1435 showing sinus rhythm with first-degree AV block and incomplete right bundle branch, probable old anterolateral infarct, age indeterminate. No acute ST elevation. No jugular rate 72. Was 216 QRS [address] QT [address] Allen Medical Decision Making - Medical Decision Making Medical decision making; 74-year-old male here for complaint of shortness of breath. The patient's also here because he was told by his doctor to come the hospital because he has an enlarging ulcer on the base of his left heel. The patient's labs show white count 7.2 hemoglobin 10.7 medical 37.9, INR 1.1, potassium 4.1, BUN 18 creatinine 0.87 with a GFR of 85. Glucose 170. Total bilirubin 1.5. Troponin less than 0.012 and a BNP of 3710. Chest x-ray was done and reviewed by radiologist. The patient's the radiologi st's impression is there is some improvement in aeration, correlate for congestive heart failure. There are bibasilar effusions. As read by Dr. Leo the patient will be admitted to hospitalist Dr. Segundo for further evaluation. While in emergency room the patient received IV Lasix, his wounds were dressed today with Silvadene. The patient will be admitted with consultation from Dr. Baker for wound clinic and Dr. Richards for infectious disease. - Lab Data Result diagrams: 01/15/19 14:02 01/15/19 14:02 Lab Results 01/15/19 01/15/19 01/15/19 Range/Units 14:02 14:02 14:02 WBC 7.2 (3.8-10.6) k/uL RBC 3.67 L (4.30-5.90) m/uL Hgb 10.7 L (13.0-17.5) gm/dL Hct 32.9 L (39.0-53.0) % MCV 89.5 (80.0-100.0) fL MCH 29.1 (25.0-35.0) pg MCHC 32.5 (31.0-37.0) g/dL RDW 14.6 (11.5-15.5) % Plt Count 191 (150-450) k/uL Neutrophils % 80 % Lymphocytes % 8 % Monocytes % 6 % Eosinophils % 4 % Basophils % 0 % Neutrophils # 5.8 (1.3-7.7) k/uL Lymphocytes # 0.6 L (1.0-4.8) k/uL Monocytes # 0.5 (0-1.0) k/uL Eosinophils # 0.3 (0-0.7) k/uL Basophils # 0.0 (0-0.2) k/uL PT 11.1 (9.0-12.0) sec INR 1.1 (<1.2) APTT 25.8 (22.0-30.0) sec Sodium 139 (137-145) mmol/L Potassium 4.1 (3.5-5.1) mmol/L Chloride 109 H (98-107) mmol/L Carbon Dioxide 21 L (22-30) mmol/L Anion Gap 9 mmol/L BUN 18 (9-20) mg/dL Creatinine 0.87 (0.66-1.25) mg/dL Est GFR (CKD-EPI)AfAm >90 (>60 ml/min/1.73 sqM) Est GFR (CKD-EPI)NonAf 85 (>60 ml/min/1.73 sqM) Glucose 170 H (74-99) mg/dL Calcium 8.7 (8.4-10.2) mg/dL Total Bilirubin 1.5 H (0.2-1.3) mg/dL AST 20 (17-59) U/L ALT 22 (21-72) U/L Alkaline Phosphatase 129 H (38-126) U/L Creatine Kinase 81 (55-170) U/L Troponin I (0.000-0.034) ng/mL NT-Pro-B Natriuret Pep pg/mL Total Protein 6.6 (6.3-8.2) g/dL Albumin 3.3 L (3.5-5.0) g/dL 01/15/19 01/15/19 Range/Units 14:02 14:02 WBC (3.8-10.6) k/uL RBC (4.30-5.90) m/uL Hgb (13.0-17.5) gm/dL Hct (39.0-53.0) % MCV (80.0-100.0) fL MCH (25.0-35.0) pg MCHC (31.0-37.0) g/dL RDW (11.5-15.5) % Plt Count (150-450) k/uL Neutrophils % % Lymphocytes % % Monocytes % % Eosinophils % % Basophils % % Neutrophils # (1.3-7.7) k/uL Lymphocytes # (1.0-4.8) k/uL Monocytes # (0-1.0) k/uL Eosinophils # (0-0.7) k/uL Basophils # (0-0.2) k/uL PT (9.0-12.0) sec INR (<1.2) APTT (22.0-30.0) sec Sodium (137-145) mmol/L Potassium (3.5-5.1) mmol/L Chloride (98-107) mmol/L Carbon Dioxide (22-30) mmol/L Anion Gap mmol/L BUN (9-20) mg/dL Creatinine (0.66-1.25) mg/dL Est GFR (CKD-EPI)AfAm (>60 ml/min/1.73 sqM) Est GFR (CKD-EPI)NonAf (>60 ml/min/1.73 sqM) Glucose (74-99) mg/dL Calcium (8.4-10.2) mg/dL Total Bilirubin (0.2-1.3) mg/dL AST (17-59) U/L ALT (21-72) U/L Alkaline Phosphatase (38-126) U/L Creatine Kinase (55-170) U/L Troponin I <0.012 (0.000-0.034) ng/mL NT-Pro-B Natriuret Pep 3710 pg/mL Total Protein (6.3-8.2) g/dL Albumin (3.5-5.0) g/dL Disposition Clinical Impression: Congestive heart failure, Heel ulcer, History of COPD Disposition: ADMITTED IP TO THIS HOSP Condition: Fair Referrals: Grey Brown DO [Primary Care Provider] - 1-2 days
--- NOTE | 2019-01-15 15:34 | XR ---
EXAMINATION TYPE: XR chest 2V DATE OF EXAM: 01/15/2019 COMPARISON: Prior chest x-ray 11/24/2018 HISTORY: Difficulty breathing, chest pain TECHNIQUE: Frontal and lateral views of the chest are obtained. FINDINGS: The heart remains enlarged. There is some improvement in lung volume in aeration. Intersti tium remains increased. No evident pneumothorax. Blunting the costophrenic angles persists. There may be underlying COPD. Aorta is dense. Intracardiac defibrillator is stable. IMPRESSION: There is some improvement in aeration, correlate for congestive heart failure. There are bibasilar effusions.
[2019-01-15] MEDS ORDERED: NALOXONE 0.4 MG/ML 1 ML VIAL IV PRN (16:31)
[2019-01-15] MEDS: HYDROcodone/APAP 7.5-325MG 1 EACH TAB PO PRN (20:24)
[2019-01-15] MEDS: MIRTAZAPINE 15 MG TAB PO SCH (22:17)
[2019-01-15] MEDS: SPIRONOLACTONE 25 MG TAB PO SCH (22:17)
[2019-01-15] MEDS: FAMOTIDINE 20 MG TAB PO SCH (22:17)
[2019-01-15 22:54] LABS: Glucose,Whole Blood 311 mg/dL (75-99)
[2019-01-15] MEDS ORDERED: INSULIN ASPART (NovoLOG) 100 UNIT/ML VIAL SQ ONE (22:56)
[2019-01-15] MEDS: INSULIN ASPART (NovoLOG) 100 UNIT/ML VIAL SQ SCH (23:56)
[2019-01-16 06:58] LABS: Glucose,Whole Blood 270 mg/dL (75-99)
[2019-01-16] MEDS ORDERED: INSULIN ASPART (NovoLOG) 100 UNIT/ML VIAL SQ SCH (07:30)
[2019-01-16] MEDS: INSULIN ASPART (NovoLOG) 100 UNIT/ML VIAL SQ SCH ×4 (08:24→21:15)
[2019-01-16] MEDS: LISINOPRIL 2.5 MG TAB PO SCH (08:25)
[2019-01-16] MEDS: METOPROLOL TARTRATE 12.5 MG TAB PO SCH (08:25)
[2019-01-16] MEDS: ATORVASTATIN 80 MG TAB PO SCH (08:25)
[2019-01-16] MEDS: SERTRALINE 50 MG TAB PO SCH (08:25)
[2019-01-16] MEDS: FAMOTIDINE 20 MG TAB PO SCH ×2 (08:25→21:16)
[2019-01-16] MEDS: metFORMIN 500 MG TAB PO SCH ×2 (08:25→18:02)
[2019-01-16] MEDS: FUROSEMIDE 80 MG TAB PO SCH ×2 (08:25→18:03)
[2019-01-16] MEDS: SPIRONOLACTONE 25 MG TAB PO SCH ×2 (08:25→21:16)
[2019-01-16] MEDS: ASPIRIN 81 MG PO SCH (08:27)
[2019-01-16 11:19] LABS: Glucose,Whole Blood 207 mg/dL (75-99)
[2019-01-16] MEDS: SILVER sulfADIAZINE Cream 400 GM 1 APPLIC APPLIC TOPICAL SCH (14:35)
[2019-01-16] MEDS: MULTIVITAMINS, THERA 1 EACH TAB PO SCH (15:35)
[2019-01-16] MEDS: ERTAPENEM 1 GM in SODIUM CHLORIDE 0.9% 50 ML IVPB SCH (15:35)
[2019-01-16 17:03] LABS: Glucose,Whole Blood 127 mg/dL (75-99)
[2019-01-16 20:17] LABS: Glucose,Whole Blood 186 mg/dL (75-99)
[2019-01-16] MEDS: MIRTAZAPINE 15 MG TAB PO SCH (21:16)
[2019-01-16] MEDS ORDERED: NITROGLYCERIN SL TABS 0.4 MG TAB SUBLINGUAL PRN (22:51)
--- NOTE | 2019-01-16 22:51 | P.HPIM ---
History of Present Illness H&P Date: 01/16/19 Chief Complaint: Heel ulcer History of presenting complaint: This is a pleasant 73-year-old patient follows a Dr. Brown. Chronic stable medical conditions include congestive heart failure EF 20-25%, diabetes, hyperlipidemia, hypertension, peripheral neuropathy, COPD, coronary artery disease with prior stent. Patient has lower extremity wounds. Has full Dr. Ricahrds. 3-4 days he still of ulcers on both the heel. Some pain initially was bleeding and had some further drainage. Appetite has been plus minus. No obvious fevers or chills. He states he's had slight chills. Decided to come in for the same. Dr. Richards was consulted. Patient also denies any increasing shortness of breath some orthopnea slight cough Review of systems: GEN.: Thyroid EYES: None HEENT: None NECK: None RESPIRATORY: None CARDIOVASCULAR: None GASTROINTESTINAL: None GENITOURINARY: None MUSCULOSKELETAL: None LYMPHATICS: None HEMATOLOGICAL: None PSYCHIATRY: None NEUROLOGICAL: Numbness and tingling in the feet Past medical history: CHF EF 20/25 present, chronic lower extremities cellulitis, diabetes type 2, hyperlipidemia, hypertension, peripheral neuropathy, COPD, coronary artery disease with stent, right hand synovitis, history of foot MRSA and VRE in the past Social history: . 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 Patient has been smoking since the age of 14 hemorrhage about a pack and half a day states now don't about a quarter pack a day. No use of illicit drugs. No alcohol. Family history: Coronary artery disease, arthritis Physical examination: VITAL SIGNS: 98.1, 65, 20, 136 and 70, 97% room air GENERAL: BMI 37.9, sitting up, comfortable. EYES: Pupils equal. Conjunctiva normal. HEENT: External appearance of nose and ears normal, oral cavity grossly normal. NECK: JVD not raised; masses not palpable. HEART: First and second heart sounds are normal; some edema. LUNGS: Respiratory rate normal; decreased breath sounds. ABDOMEN: Soft, nontender, liver spleen not palpable, no masses palpable. PSYCH: Alert and oriented x3; mood and affect normal. EXTREMITY: Chronic changes of lower extremity patient's current dressing on the same NEUROLOGICAL: Cranial nerves grossly intact; no facial asymmetry, decreased sensation distally. LYMPHATICS: No lymph nodes palpable in the axilla and neck Investigations, reviewed in the clinical context White count 7.2, hemoglobin 10.7, platelets 191, potassium 4.1, albumin 18, creatinine 0.87 Troponin I times 20.012 proBNP 3710 EKG tracing personally reviewed by me shows low voltage poor R-wave progression first-degree heart block Checks x-ray film personally reviewed by me shows pleural effusion and some venous prominence Assessment: -Acute on chronic congestive heart exacerbation from systolic dysfunction EF 20/25 percent -Chronic bilateral lower external recent mellitus -Diabetes mellitus type 2 Non-hyperlipidemia -Essential hypertension -Peripheral neuropathy -COPD in a current smoker -coronary artery disease with stents -Lower extremity heel ulcers from diabetic wound Plan: Patient be started on IV Lasix. For wound care consult Dr. Richards. A few no chills. Home medications were resumed. add bronchodilators. In his joints. Nicotine patch. Antibiotics per Dr. Richards. Add inhaled steroids. Had nicotine patch Past Medical History Past Medical History: Chest Pain / Angina, Heart Failure, COPD, Diabetes Mellitus, Hyperlipidemia, Hypertension, Myocardial Infarction ([place]), Rheumatoid Arthritis ([place]) Additional Past Medical History / Comment(s): past edema in legs ,2016 rt.foot(heel) wound, bilat leg and hand neuropathy(unable to take gabapentin), tx at [facility]. for rt hand tenosynovitis, poor circulation Last Myocardial Infarction Date:: 2010 History of Any Multi-Drug Resistant Organisms: MRSA, VRE Date of last positivie culture/infection: 12/08/15 MDRO Source:: RIGHT FOOT MRSA AND VRE Past Surgical History: Appendectomy, Cholecystectomy, Heart Catheterization With Stent, Hernia Repair, Tonsillectomy Additional Past Surgical History / Comment(s): cervical fusion laminactomy , left carpal tunnel release, cataract left eye, HEART STENT X2, 10-16-15 PTBA /RT LEG STENT, rt hand x2 surgery, umb hernia, [facility] [address] B[facility]ia Past Anesthesia/Blood Transfusion Reactions: Postoperative Nausea & Vomiting (PONV) Additional Past Anesthesia/Blood Transfusion Reaction / Comment(s): .PT STATED AFTER HAND SX HAD DIFFICULTY URINATING AND PAIN MEDS CONSTIPATE HIM. Date of Last Stent Placement:: 12/2013 Type of Cardiac Device: AICD Device Placement Date:: 2014 Past Psychological History: No Psychological Hx Reported Additional Psychological History / Comment(s): PT LIVES AT HOME WITH HIS (IS CAREGIVER TO HIS ). 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 Smoking Status: Current every day smoker Past Alcohol Use History: None Reported Additional Past Alcohol Use History / Comment(s): PT STARTED SMOKING AT AGE 14 WORKED UP TO 1.5 PPD BUT HAS CUT DOWN TO 1/2 PPD. He denies any marijuana or illicit drug use. He denies any alcohol use. 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 No pets in the home. Past Drug Use History: None Reported - Past Family History Mother Additional Family Medical History / Comment(s): PT STATED MOM WAS HEALTHY BUT IN OLDER AGE GOT PNE- FROM COMPLICATIONS OF PNE. Father Family Medical History: Osteoarthritis (OA) Additional Family Medical History / Comment(s): ULCERS, HEART PROBLEMS HAD BYPASS,BACK SURGURY Medications and Allergies Home Medications Medication Instructions Recorded Confirmed Type HYDROcodone/APAP 7.5-325MG [[place] 1 tab PO Q6HR PRN 11/07/15 01/15/19 History 7.5-325] Aspirin [Adult Low Dose Aspirin EC] 81 mg PO DAILY 04/10/16 01/15/19 History Atorvastatin [Lipitor] 80 mg PO DAILY 08/06/16 01/15/19 History metFORMIN HCL [Glucophage] 1,000 mg PO BID 08/28/17 01/15/19 History Metoprolol Tartrate [Lopressor] 12.5 mg PO DAILY 08/23/18 01/15/19 History Lisinopril [Zestril] 2.5 mg PO DAILY #90 tab 08/27/18 01/15/19 Rx Mirtazapine [Remeron] 15 mg PO HS 11/02/18 01/15/19 History Nitroglycerin Sl Tabs [Nitrostat] 0.4 mg SL Q5M PRN 11/02/18 01/15/19 History Sertraline [Zoloft] 50 mg PO DAILY 11/02/18 01/15/19 History Spironolactone [Aldactone] 25 mg PO BID #60 tab 11/04/18 01/15/19 Rx Furosemide [Lasix] 80 mg PO BID@0900,1600 tab 11/27/18 01/15/19 Rx Allergies Allergy/AdvReac Type Severity Reaction Status Date / Time Penicillins Allergy Rash/Hives Verified 01/15/19 16:45 gabapentin [From Neurontin] AdvReac Nausea Verified 01/15/19 16:45 Physical Exam Vitals: Vital Signs Temp Pulse Pulse Resp BP BP Pulse Ox 01/16/19 05:00 97.7 F 82 16 132/68 97 01/15/19 23:40 18 01/15/19 20:46 97.4 F L 81 18 131/70 97 01/15/19 18:53 98.0 F 79 18 131/76 100 01/15/19 16:05 80 18 129/61 99 01/15/19 15:41 66 14 01/15/19 15:26 67 14 01/15/19 13:37 98.1 F 65 20 136/70 97 Intake and Output 01/15/19 01/16/19 01/16/19 22:59 06:59 14:59 Intake Total 400 Output Total 600 500 Balance -600 -100 Intake: Oral 400 Output: Urine 600 500 Other: Voiding Method Urinal # Voids 1 2 Weight 123 kg Results CBC & Chem 7: 01/15/19 14:02 01/15/19 14:02 Labs: Abnormal Lab Results - Last 24 Hours (Table) 01/15/19 01/15/19 01/15/19 Range/Units 14:02 14:02 22:53 RBC 3.67 L (4.30-5.90) m/uL Hgb 10.7 L (13.0-17.5) gm/dL Hct 32.9 L (39.0-53.0) % Lymphocytes # 0.6 L (1.0-4.8) k/uL Chloride 109 H (98-107) mmol/L Carbon Dioxide 21 L (22-30) mmol/L Glucose 170 H (74-99) mg/dL POC Glucose (mg/dL) 311 H (75-99) mg/dL Total Bilirubin 1.5 H (0.2-1.3) mg/dL Alkaline Phosphatase 129 H (38-126) U/L Albumin 3.3 L (3.5-5.0) g/dL 01/16/19 Range/Units 06:52 RBC (4.30-5.90) m/uL Hgb (13.0-17.5) gm/dL Hct (39.0-53.0) % Lymphocytes # (1.0-4.8) k/uL Chloride (98-107) mmol/L Carbon Dioxide (22-30) mmol/L Glucose (74-99) mg/dL POC Glucose (mg/dL) 270 H (75-99) mg/dL Total Bilirubin (0.2-1.3) mg/dL Alkaline Phosphatase (38-126) U/L Albumin (3.5-5.0) g/dL Thrombosis Risk Factor Assmnt - Choose All That Apply Any of the Below Risk Factors Present?: Yes Each Factor Represents 1 point: Abnormal pulmonary function (COPD), Obesity (BMI >25) Other Risk Factors: No Other congenital or acquired thrombophilia - If yes, enter type in comment: No Thrombosis Risk Factor Assessment Total Risk Factor Score: 2 Thrombosis Risk Factor Assessment Level: Low Risk
[2019-01-16] MEDS: BUDESONIDE 1 MG/2 ML NEBU INHALATION SCH (23:51)
[2019-01-16] MEDS: IPRATROPIUM-ALBUTEROL 3 ML NEB INHALATION PRN (23:51)
--- NOTE | 2019-01-16 23:54 | P.CONS ---
History of Present Illness - Reason for Consult Consult date: 01/16/19 - Chief Complaint Heel ulcer - History of Present Illness 74-year-old male who has been followed in the wound healing Center in the past relates to a short history of new ulceration to the left heel. He is not able to relate etiology. He doesn't recall any trauma. He relates only walks a few steps within his home truly does not understand how he could have an injury. Does have history of prior diabetic foot ulcerations. He does have ischemic cardiomyopathy with ejection fraction of about 25%. He's had episode of significant infection to his hand required several surgical interventions and a course of intravenous antibiotic therapy in the past. The patient is quite unhappy at this point in time several attempts are made to try to improve his current difficulties. Review of Systems HEENT:Denies headache or acute visual change. Denies sinus or mouth dis comforts. Denies neck stiffness or pain. Denies significant oral cavity pain. Denies difficulty on swallowing. Lungs: Anicteric shortness of breath continues to smoke some sputum production or hemoptysis Cardiovascular: Chronic shortness of breath dyspnea with exertion no chest pain no syncope Gastrointestinal:Denies nausea, vomiting, diarrhea, constipation, hematemesis, melena, hematochezia. No no significant change of bowel habit noticed. Musculoskeletal: denies significant myalgias or arthralgias. No new joint swelling. Denies new back pain. Skin: As per the HPI new ulceration right heel Neuro: Denies headache or visual change. Denies any new onset weakness or difficulty with ambulation. Denies falls or seizures. Psychiatric: Denies depression but seems to have anxiety Endocrine: Has chronic fatigue and watches his weight he quickly can gain 5 pounds of fluid Past Medical History Past Medical History: Chest Pain / Angina, Heart Failure, COPD, Diabetes Mellitus, Hyperlipidemia, Hypertension, Myocardial Infarction (CA), Rheumatoid Arthritis (RA) Additional Past Medical History / Comment(s): past edema in legs ,2016 rt.foot(heel) wound, bilat leg and hand neuropathy(unable to take gabapentin), tx at [facility]. for rt hand tenosynovitis, poor circulation Last Myocardial Infarction Date:: 2010 History of Any Multi-Drug Resistant Organisms: MRSA, VRE Year Discovered:: 12/08/15 MDRO Source:: RIGHT FOOT MRSA AND VRE Past Surgical History: Appendectomy, Cholecystectomy, Heart Catheterization With Stent, Hernia Repair, Tonsillectomy Additional Past Surgical History / Comment(s): cervical fusion laminactomy , left carpal tunnel release, cataract left eye, HEART STENT X2, 10-16-15 PTBA /RT LEG STENT, rt hand x2 surgery, umb hernia, past picc line, AICD [address] Bhatia Past Anesthesia/Blood Transfusion Reactions: Postoperative Nausea & Vomiting (PONV) Additional Past Anesthesia/Blood Transfusion Reaction / Comm: .PT STATED AFTER HAND SX HAD DIFFICULTY URINATING AND PAIN MEDS CONSTIPATE HIM. Date of Last Stent Placement:: 12/2013 Type of Cardiac Device: AICD Device Placement Date:: 2014 Past Psychological History: No Psychological Hx Reported Additional Psychological History / Comment(s): PT LIVES AT HOME WITH HIS (IS CAREGIVER TO HIS ). 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 Remains a smoker. Denies current alcohol use. No travel. Was in the [place] in his youth. No animals at home Smoking Status: Current every day smoker Past Alcohol Use History: None Reported Additional Past Alcohol Use History / Comment(s): PT STARTED SMOKING AT AGE 14 WORKED UP TO 1.5 PPD BUT HAS CUT DOWN TO 1/2 PPD. He denies any marijuana or illicit drug use. He denies any alcohol use. 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 No pets in the home. Past Drug Use History: None Reported - Past Family History Mother Additional Family Medical History / Comment(s): PT STATED MOM WAS HEALTHY BUT IN OLDER AGE GOT PNE- FROM COMPLICATIONS OF PNE. Father Family Medical History: Osteoarthritis (OA) Additional Family Medical History / Comment(s): ULCERS, HEART PROBLEMS HAD BYPASS,BACK SURGURY Medications and Allergies Home Medications and Allergies Comment(s): Current Medications Hydrocodone Bitart/Acetaminophen ([place] 7.5-325) 1 each PO Q6HR PRN PRN Reason: Pain Last Admin: 01/15/19 20:24 Dose: 1 each Documented by: Albuterol/Ipratropium (Duoneb 0.5 Mg-3 Mg/3 Ml Soln) 3 ml INHALATION RT-QID PRN PRN Reason: Shortness Of Breath Or Wheezing Aspirin (Aspirin) 81 mg PO DAILY [facility] Last Admin: 01/16/19 08:27 Dose: 81 mg Documented by: Atorvastatin Calcium (Lipitor) 80 mg PO DAILY [facility] Last Admin: 01/16/19 08:25 Dose: 80 mg Documented by: Budesonide (Pulmicort) 1 mg INHALATION RT-BID [facility] Famotidine (Pepcid) 20 mg PO BID [facility] Last Admin: 01/16/19 21:16 Dose: 20 mg Documented by: Furosemide (Lasix) 80 mg IV Q8HR [facility] Ertapenem 1 gm/ Sodium (Chloride) 50 mls @ 100 mls/hr IVPB DAILY [facility]; Protocol Last Admin: 01/16/19 15:35 Dose: 100 mls/hr Documented by: Insulin Aspart (Novolog) 0 unit SQ ACHS [facility]; Protocol Last Admin: 01/16/19 21:15 Dose: 3 unit Documented by: Lisinopril (Zestril) 2.5 mg PO DAILY [facility] Last Admin: 01/16/19 08:25 Dose: 2.5 mg Documented by: Metformin HCl (Glucophage) 1,000 mg PO BID-W/MEALS [facility] Last Admin: 01/16/19 18:02 Dose: 1,000 mg Documented by: Metoprolol Tartrate (Lopressor) 12.5 mg PO DAILY [facility] Last Admin: 01/16/19 08:25 Dose: 12.5 mg Documented by: Mirtazapine (Remeron) 15 mg PO HS [facility] Last Admin: 01/16/19 21:16 Dose: 15 mg Documented by: Multivitamins (Theragran) 1 each PO DAILY [facility] Last Admin: 01/16/19 15:35 Dose: 1 each Documented by: Naloxone HCl (Narcan) 0.2 mg IV Q2M PRN PRN Reason: Opioid Reversal Nicotine (Habitrol 7mg/24hr Patch) 1 patch TRANSDERM DAILY@2100 [facility] Nitroglycerin (Nitrostat) 0.4 mg SUBLINGUAL Q5M PRN PRN Reason: Chest Pain Sertraline HCl (Zoloft) 50 mg PO DAILY [facility] Last Admin: 01/16/19 08:25 Dose: 50 mg Documented by: Silver Sulfadiazine (Silvadene Cream) 1 applic TOPICAL DAILY [facility] Last Admin: 01/16/19 14:35 Dose: 1 applic Documented by: Spironolactone (Aldactone) 25 mg PO BID [facility] Last Admin: 01/16/19 21:16 Dose: 25 mg Documented by: Home Medications Medication Instructions Recorded Confirmed Type HYDROcodone/APAP 7.5-325MG [[place] 1 tab PO Q6HR PRN 11/07/15 01/15/19 History 7.5-325] Aspirin [Adult Low Dose Aspirin EC] 81 mg PO DAILY 04/10/16 01/15/19 History Atorvastatin [Lipitor] 80 mg PO DAILY 08/06/16 01/15/19 History metFORMIN HCL [Glucophage] 1,000 mg PO BID 08/28/17 01/15/19 History Metoprolol Tartrate [Lopressor] 12.5 mg PO DAILY 08/23/18 01/15/19 History Lisinopril [Zestril] 2.5 mg PO DAILY #90 tab 08/27/18 01/15/19 Rx Mirtazapine [Remeron] 15 mg PO HS 11/02/18 01/15/19 History Nitroglycerin Sl Tabs [Nitrostat] 0.4 mg SL Q5M PRN 11/02/18 01/15/19 History Sertraline [Zoloft] 50 mg PO DAILY 11/02/18 01/15/19 History Spironolactone [Aldactone] 25 mg PO BID #60 tab 11/04/18 01/15/19 Rx Furosemide [Lasix] 80 mg PO BID@0900,1600 tab 11/27/18 01/15/19 Rx Allergies Allergy/AdvReac Type Severity Reaction Status Date / Time Penicillins Allergy Rash/Hives Verified 01/15/19 16:45 gabapentin [From Neurontin] AdvReac Nausea Verified 01/15/19 16:45 Physical Exam Vitals: Vital Signs Temp Pulse Resp BP Pulse Ox 01/16/19 21:00 97.6 F 66 16 109/64 98 01/16/19 15:04 59 L 16 01/16/19 11:35 97.4 F L 59 L 16 103/62 97 01/16/19 08:30 59 L 16 01/16/19 05:00 97.7 F 82 16 132/68 97 01/15/19 23:40 18 Intake and Output 01/16/19 01/16/19 01/17/19 14:59 22:59 06:59 Intake Total 240 660 Output Total 200 800 Balance 40 -140 Intake: Oral 240 660 Output: Urine 200 800 Other: Voiding Method Urinal Urinal # Voids 3 1 Weight 123.3 kg 74 -year-old male unhappy HEENT: Anicteric conjunctiva are pink and moist nasal mucosa grossly intact without significant lesions, there is no thrush. Poor dentition Neck: The neck is supple without significant lymphadenopathy or thyromegaly. Lungs: Symmetric air entry expiratory wheezes no kenny dullness or egophony Heart: Irregular without new murmur click or rub PMI is nondisplaced Abdomen: Obese, Positive bowel sounds soft and nontender without palpable masses or organomegaly. There was no guarding or rebound. Extremities: The upper extremities have excellent pulses they are symmetric, no significant petechiae or telangiectasia. No splinter hemorrhages were noted. Lower extremities evidence of the chronic lower extremity edema is evidence of the eschar of the left heel and again patient is not clear how it started. It is approximately 3 x 3 cm it appears to be a deep tissue injury there is surrounding erythema and there is also some swelling. Neuro: Awake alert oriented to person place and time. There are no acute new gross focal sensory motor deficits. Results CBC & Chem 7: 01/15/19 14:02 01/15/19 14:02 Labs: Abnormal Lab Results - Last 24 Hours (Table) 01/16/19 01/16/19 01/16/19 Range/Units 06:52 11:08 17:00 POC Glucose (mg/dL) 270 H 207 H 127 H (75-99) mg/dL 01/16/19 Range/Units 20:16 POC Glucose (mg/dL) 186 H (75-99) mg/dL Microbiology - Last 24 Hours (Table) 01/16/19 13:06 Wound Culture - Preliminary Foot - Left 01/15/19 16:15 Blood Culture - Preliminary Blood No Growth after 24 hours Laboratory Results WBC 7.2 k/uL (3.8-10.6) 01/15/19 14:02 RBC 3.67 m/uL (4.30-5.90) L 01/15/19 14:02 Hgb 10.7 gm/dL (13.0-17.5) L 01/15/19 14:02 Hct 32.9 % (39.0-53.0) L 01/15/19 14:02 MCV 89.5 fL (80.0-100.0) 01/15/19 14:02 MCH 29.1 pg (25.0-35.0) 01/15/19 14:02 MCHC 32.5 g/dL (31.0-37.0) 01/15/19 14:02 RDW 14.6 % (11.5-15.5) 01/15/19 14:02 Plt Count 191 k/uL (150-450) 01/15/19 14:02 Neutrophils % 80 % 01/15/19 14:02 Lymphocytes % 8 % 01/15/19 14:02 Monocytes % 6 % 01/15/19 14:02 Eosinophils % 4 % 01/15/19 14:02 Basophils % 0 % 01/15/19 14:02 Neutrophils # 5.8 k/uL (1.3-7.7) 01/15/19 14:02 Lymphocytes # 0.6 k/uL (1.0-4.8) L 01/15/19 14:02 Monocytes # 0.5 k/uL (0-1.0) 01/15/19 14:02 Eosinophils # 0.3 k/uL (0-0.7) 01/15/19 14:02 Basophils # 0.0 k/uL (0-0.2) 01/15/19 14:02 PT 11.1 sec (9.0-12.0) 01/15/19 14:02 INR 1.1 (<1.2) 01/15/19 14:02 APTT 25.8 sec (22.0-30.0) 01/15/19 14:02 Sodium 139 mmol/L (137-145) 01/15/19 14:02 Potassium 4.1 mmol/L (3.5-5.1) 01/15/19 14:02 Chloride 109 mmol/L (98-107) H 01/15/19 14:02 Carbon Dioxide 21 mmol/L (22-30) L 01/15/19 14:02 Anion Gap 9 mmol/L 01/15/19 14:02 BUN 18 mg/dL (9-20) 01/15/19 14:02 Creatinine 0.87 mg/dL (0.66-1.25) 01/15/19 14:02 Est GFR (CKD-EPI)AfAm >90 (>60 ml/min/1.73 sqM) 01/15/19 14:02 Est GFR (CKD-EPI)NonAf 85 (>60 ml/min/1.73 sqM) 01/15/19 14:02 Glucose 170 mg/dL (74-99) H 01/15/19 14:02 POC Glucose (mg/dL) 186 mg/dL (75-99) H 01/16/19 20:16 POC Glu Can Dragger ID Katelynn Montiel 01/16/19 20:16 Calcium 8.7 mg/dL (8.4-10.2) 01/15/19 14:02 Total Bilirubin 1.5 mg/dL (0.2-1.3) H 01/15/19 14:02 AST 20 U/L (17-59) 01/15/19 14:02 ALT 22 U/L (21-72) 01/15/19 14:02 Alkaline Phosphatase 129 U/L (38-126) H 01/15/19 14:02 Creatine Kinase 81 U/L (55-170) 01/15/19 14:02 Troponin I <0.012 ng/mL (0.000-0.034) 01/16/19 01:44 NT-Pro-B Natriuret Pep 3710 pg/mL 01/15/19 14:02 Total Protein 6.6 g/dL (6.3-8.2) 01/15/19 14:02 Albumin 3.3 g/dL (3.5-5.0) L 01/15/19 14:02 Microbiology 01/16/19 13:06 Foot - Left Wound Culture - Preliminary 01/15/19 16:15 Blood Blood Culture - Preliminary No Growth after 24 hours Assessment and Plan (1) CHF (congestive heart failure) Current Visit: Yes Status: Acute Code(s): I50.9 - HEART FAILURE, UNSPECIFIED SNOMED Code(s): 62020005 (2) Diabetic ulcer of left foot associated with diabetes mellitus due to underlying condition, with fat layer exposed Narrative/Plan: 74-year-old male presents to Hospital with a short history over the last few days of ulceration to his left heel. He is not clear how it started this developed the deep tissue injury to that area with eschar in place. Cultu re is obtained and sent to the laboratory. He understands the importance of offloading. Local wound care to the heel will be started with therahoney. To the bilateral lower extremities. He has a chronic changes Silvadene will be applied. The rolled gauze and Hector wrap so be applied to both legs. Elevate them as much as he can. I do come to his room on 2 occasions and both times he is sitting upright with his legs in dependent position. The patient is unhappy with his care. His legs were unwrapped 1 lunch came and refused to eat both legs were unwrapped wall the 1 products were coming from the central sternal area. He refused a sandwich. I was able to get him a cup of coffee a warm blanket which seemed to see with him. I've asked the nurses to weigh him ensure that he is getting his Lasix on a daily basis. Based on prior cultures Invanz is being requested especially with his penicillin ALLERGY to cover the pathogens of the diabetic foot ulceration. Bone scan requested to ensure there is no underlying bony infection. Current Visit: Yes Status: Acute Code(s): E08.621 - DIABETES MELLITUS DUE TO UNDERLYING CONDITION W FOOT ULCER; L97.522 - NON-PRS CHRONIC ULCER OTH PRT LEFT FOOT W FAT LAYER EXPOSED SNOMED Code(s): 207772511
[2019-01-17] MEDS: HYDROcodone/APAP 7.5-325MG 1 EACH TAB PO PRN (00:36)
[2019-01-17] MEDS: FUROSEMIDE 10 MG/ML 10 ML VIAL IV SCH ×5 (00:37→23:06)
[2019-01-17] MEDS: NICOTINE 7MG/24HR PATCH TRANSDERM SCH ×2 (00:38→22:58)
[2019-01-17 07:10] LABS: Glucose,Whole Blood 196 mg/dL (75-99)
[2019-01-17] MEDS: BUDESONIDE 1 MG/2 ML NEBU INHALATION SCH ×2 (08:15→19:32)
[2019-01-17] MEDS: FAMOTIDINE 20 MG TAB PO SCH ×2 (08:16→22:58)
[2019-01-17] MEDS: ATORVASTATIN 80 MG TAB PO SCH (08:16)
[2019-01-17] MEDS: LISINOPRIL 2.5 MG TAB PO SCH (08:16)
[2019-01-17] MEDS: SPIRONOLACTONE 25 MG TAB PO SCH ×2 (08:16→22:58)
[2019-01-17] MEDS: METOPROLOL TARTRATE 12.5 MG TAB PO SCH (08:16)
[2019-01-17] MEDS: ERTAPENEM 1 GM in SODIUM CHLORIDE 0.9% 50 ML IVPB SCH (08:16)
[2019-01-17] MEDS: metFORMIN 500 MG TAB PO SCH ×2 (08:16→17:41)
[2019-01-17] MEDS: MULTIVITAMINS, THERA 1 EACH TAB PO SCH (08:16)
[2019-01-17] MEDS: ASPIRIN 81 MG PO SCH (08:16)
[2019-01-17] MEDS: INSULIN ASPART (NovoLOG) 100 UNIT/ML VIAL SQ SCH ×4 (08:17→22:59)
[2019-01-17 08:27] LABS: Potassium 4.2 mmol/L (3.5-5.1)
[2019-01-17 11:07] LABS: Glucose,Whole Blood 276 mg/dL (75-99)
[2019-01-17] MEDS: SERTRALINE 50 MG TAB PO SCH (11:09)
[2019-01-17] MEDS: SILVER sulfADIAZINE Cream 400 GM 1 APPLIC APPLIC TOPICAL SCH (14:13)
[2019-01-17] MEDS: IPRATROPIUM-ALBUTEROL 3 ML NEB INHALATION PRN ×2 (15:10→19:32)
--- NOTE | 2019-01-17 16:14 | P.PN ---
Subjective Progress Note Date: 01/17/19 74-year-old male who has been followed in the wound healing Center in the past relates to a short history of new ulceration to the left heel. He is not able to relate etiology. He doesn't recall any trauma. He relates only walks a few steps within his home truly does not understand how he could have an injury. Does have history of prior diabetic foot ulcerations. He does have ischemic cardiomyopathy with ejection fraction of about 25%. He's had episode of significant infection to his hand required several surgical interventions and a course of intravenous antibiotic therapy in the past. The patient is quite unhappy at this point in time several attempts are made to try to improve his current difficulties. 01/17/2019 the patient is less miserable today. Pain is slightly improved. His understanding the current plan. Objective - Vital Signs Vital signs: Vital Signs Temp 98.7 F 01/17/19 05:00 Pulse 70 01/17/19 15:20 Resp 16 01/17/19 05:00 BP 119/71 01/17/19 05:00 Pulse Ox 98 01/17/19 05:00 Intake & Output 01/16/19 01/17/19 01/17/19 18:59 06:59 18:59 Intake Total 240 1080 Output Total 800 1300 1000 Balance -560 -220 -1000 Weight 123.3 kg 123.4 kg Intake: Oral 240 1080 Output: Urine 800 1300 1000 Other: Voiding Method Urinal Urinal # Voids 1 1 2 - Exam 74 -year-old male unhappy HEENT: Anicteric conjunctiva are pink and moist nasal mucosa grossly intact without significant lesions, there is no thrush. Poor dentition Neck: The neck is supple without significant lymphadenopathy or thyromegaly. Lungs: Symmetric air entry expiratory wheezes no kenny dullness or egophony Heart: Irregular without new murmur click or rub PMI is nondisplaced Abdomen: Obese, Positive bowel sounds soft and nontender without palpable masses or organomegaly. There was no guarding or rebound. Extremities: The upper extremities have excellent pulses they are symmetric, no significant petechiae or telangiectasia. No splinter hemorrhages were noted. Lower extremities evidence of the chronic lower extremity edema is evidence of the eschar of the left heel and again patient is not clear how it started. It is approximately 3 x 3 cm it appears to be a deep tissue injury there is surrounding erythema and there is also some swelling. Neuro: Awake alert oriented to person place and time. There are no acute new gross focal sensory motor deficits. - Labs CBC & Chem 7: 01/15/19 14:02 01/17/19 07:59 Labs: Abnormal Lab Results - Last 24 Hours (Table) 01/16/19 01/16/19 01/17/19 Range/Units 17:00 20:16 07:08 BUN (9-20) mg/dL Glucose (74-99) mg/dL POC Glucose (mg/dL) 127 H 186 H 196 H (75-99) mg/dL 01/17/19 01/17/19 Range/Units 07:59 11:05 BUN 23 H (9-20) mg/dL Glucose 195 H (74-99) mg/dL POC Glucose (mg/dL) 276 H (75-99) mg/dL Microbiology - Last 24 Hours (Table) 01/16/19 13:06 Gram Stain - Preliminary Foot - Left Wound Culture - Preliminary 01/15/19 16:15 Blood Culture - Preliminary Blood No Growth after 24 hours Laboratory Results WBC 7.2 k/uL (3.8-10.6) 01/15/19 14:02 RBC 3.67 m/uL (4.30-5.90) L 01/15/19 14:02 Hgb 10.7 gm/dL (13.0-17.5) L 01/15/19 14:02 Hct 32.9 % (39.0-53.0) L 01/15/19 14:02 MCV 89.5 fL (80.0-100.0) 01/15/19 14:02 MCH 29.1 pg (25.0-35.0) 01/15/19 14:02 MCHC 32.5 g/dL (31.0-37.0) 01/15/19 14:02 RDW 14.6 % (11.5-15.5) 01/15/19 14:02 Plt Count 191 k/uL (150-450) 01/15/19 14:02 Neutrophils % 80 % 01/15/19 14:02 Lymphocytes % 8 % 01/15/19 14:02 Monocytes % 6 % 01/15/19 14:02 Eosinophils % 4 % 01/15/19 14:02 Basophils % 0 % 01/15/19 14:02 Neutrophils # 5.8 k/uL (1.3-7.7) 01/15/19 14:02 Lymphocytes # 0.6 k/uL (1.0-4.8) L 01/15/19 14:02 Monocytes # 0.5 k/uL (0-1.0) 01/15/19 14:02 Eosinophils # 0.3 k/uL (0-0.7) 01/15/19 14:02 Basophils # 0.0 k/uL (0-0.2) 01/15/19 14:02 PT 11.1 sec (9.0-12.0) 01/15/19 14:02 INR 1.1 (<1.2) 01/15/19 14:02 APTT 25.8 sec (22.0-30.0) 01/15/19 14:02 Sodium 140 mmol/L (137-145) 01/17/19 07:59 Potassium 4.2 mmol/L (3.5-5.1) 01/17/19 07:59 Chloride 105 mmol/L (98-107) 01/17/19 07:59 Carbon Dioxide 24 mmol/L (22-30) 01/17/19 07:59 Anion Gap 11 mmol/L 01/17/19 07:59 BUN 23 mg/dL (9-20) H 01/17/19 07:59 Creatinine 1.00 mg/dL (0.66-1.25) 01/17/19 07:59 Est GFR (CKD-EPI)AfAm 85 (>60 ml/min/1.73 sqM) 01/17/19 07:59 Est GFR (CKD-EPI)NonAf 73 (>60 ml/min/1.73 sqM) 01/17/19 07:59 Glucose 195 mg/dL (74-99) H 01/17/19 07:59 POC Glucose (mg/dL) 276 mg/dL (75-99) H 01/17/19 11:05 POC Glu Credit [employer] Examiner ID Rylee Hicks 01/17/19 11:05 Calcium 9.0 mg/dL (8.4-10.2) 01/17/19 07:59 Total Bilirubin 1.5 mg/dL (0.2-1.3) H 01/15/19 14:02 AST 20 U/L (17-59) 01/15/19 14:02 ALT 22 U/L (21-72) 01/15/19 14:02 Alkaline Phosphatase 129 U/L (38-126) H 01/15/19 14:02 Creatine Kinase 81 U/L (55-170) 01/15/19 14:02 Troponin I <0.012 ng/mL (0.000-0.034) 01/16/19 01:44 NT-Pro-B Natriuret Pep 3710 pg/mL 01/15/19 14:02 Total Protein 6.6 g/dL (6.3-8.2) 01/15/19 14:02 Albumin 3.3 g/dL (3.5-5.0) L 01/15/19 14:02 Microbiology 01/16/19 13:06 Foot - Left Gram Stain - Preliminary 01/16/19 13:06 Foot - Left Wound Culture - Preliminary 01/15/19 16:15 Blood Blood Culture - Preliminary No Growth after 24 hours Assessment and Plan (1) CHF (congestive heart failure) Current Visit: Yes Status: Acute Code(s): I50.9 - HEART FAILURE, UNSPECIFIED SNOMED Code(s): 39202040 (2) Diabetic ulcer of left foot associated with diabetes mellitus due to underlying condition, with fat layer exposed Narrative/Plan: 74-year-old male presents to Hospital with a short history over the last few days of ulceration to his left heel. He is not clear how it started this developed the deep tissue injury to that area with eschar in place. Culture is obtained and sent to the laboratory. He understands the importance of offloading. Local wound care to the heel will be started with therahoney. To the bilateral lower extremities. He has a chronic changes Silvadene will be applied. The rolled gauze and Hector wrap so be applied to both legs. Elevate them as much as he can. I do come to his room on 2 occasions and both times he is sitting upright with his legs in dependent position. The patient is unhappy with his care. His legs were unwrapped 1 lunch came and refused to eat both legs were unwrapped wall the 1 products were coming from the central sternal area. He refused a sandwich. I was able to get him a cup of coffee a warm blanket which seemed to see with him. I've asked the nurses to weigh him ensure that he is g etting his Lasix on a daily basis. Based on prior cultures Invanz is being requested especially with his penicillin ALLERGY to cover the pathogens of the diabetic foot ulceration. Bone scan requested to ensure there is no underlying bony infection. 01/17/2019 the patient is slightly improved today. His pain seems to be stable. Doing well with pain medications. Patient has several concerns. Arrived to Hospital by ambulance and does not wake home. We'll ask social work to help him arrange for a ride home. Bone scan tomorrow if there is evidence of underlying osteomyelitis within need to make arrangements for outpatient intravenous antibiotic therapy likely with Invanz based on prior cultures. However current culture may further direct that. However if there is no evidence of osteoarthritis oral antibiotic therapy will hopefully be an option. Would continue local wound care with claudine through his home care nurse at discharge. Follow the wound healing Center. Current Visit: Yes Status: Acute Code(s): E08.621 - DIABETES MELLITUS DUE TO UNDERLYING CONDITION W FOOT ULCER; L97.522 - NON-PRS CHRONIC ULCER OTH PRT LEFT FOOT W FAT LAYER EXPOSED SNOMED Code(s): 019204328
[2019-01-17 17:05] LABS: Glucose,Whole Blood 97 mg/dL (75-99)
[2019-01-17 20:05] LABS: Glucose,Whole Blood 161 mg/dL (75-99)
[2019-01-17] MEDS: MIRTAZAPINE 15 MG TAB PO SCH (22:58)
--- NOTE | 2019-01-17 23:11 | P.PN ---
Progress Note - Text Progress Note Date: 01/17/19 Chief Complaint: Heel ulcer, short of breath History of presenting complaint: This is a pleasant 73-year-old patient follows a Dr. Brown. Chronic stable medical conditions include congestive heart failure EF 20-25%, diabetes, hyperlipidemia, hypertension, peripheral neuropathy, COPD, coronary artery disease with prior stent. Patient has lower extremity wounds. Has full Dr. Richards. 3-4 days he still of ulcers on both the heel. Some pain initially was bleeding and had some further drainage. Appetite has been plus minus. No obvious fevers or chills. He states he's had slight chills. Decided to come in for the same. Dr. Richards was consulted. Patient also denies any increasing shortness of breath some orthopnea slight cough Admitted with CHF exacerbation and ulcers on the heel Today-breathing a bit better. Edema is going down. Dressing of the lower exudate. Appetite is a bit better. Less tired. Current medications reviewed that included: IV ertapenem, IV Lasix 80 mg every 8 Physical examination: VITAL SIGNS: 98.7, 73, 16, 07/21/1971, 98% GENERAL: , sitting up, EYES: Pupils equal. Conjunctiva normal. HEENT: External appearance of nose and ears normal, oral cavity grossly normal. NECK: JVD not raised; masses not palpable. HEART: First and second heart sounds are normal; decreased edema. LUNGS: Respiratory rate normal; decreased breath sounds. ABDOMEN: Soft, nontender, liver spleen not palpable, no masses palpable. PSYCH: Alert and oriented x3; mood and affect normal. EXTREMITY: Chronic changes of lower extremity patient's current dressing on the same NEUROLOGICAL: Cranial nerves grossly intact; no facial asymmetry, decreased sensation distally. Investigations, reviewed in the clinical context Potassium 4.2, BUN 23, creatinine 1.0 Assessment: -Acute on chronic congestive heart exacerbation from systolic dysfunction EF 20/25 percent, slowly improving -Chronic bilateral lower external recent cellulitis -Diabetes mellitus type 2 -hyperlipidemia -Essential hypertension -Peripheral neuropathy -COPD in a current smoker -coronary artery disease with stents -Lower extremity heel ulcers from diabetic wound Plan: Patient appears improved. Breathing guarded. Repeat a chest x-ray and a BMP in the morning. Switched to oral Lasix tomorrow Care was discussed with the patient.
[2019-01-18] MEDS ORDERED: FUROSEMIDE 10 MG/ML 10 ML VIAL IV SCH (06:00)
[2019-01-18 06:53] LABS: Glucose,Whole Blood 159 mg/dL (75-99)
[2019-01-18] MEDS: IPRATROPIUM-ALBUTEROL 3 ML NEB INHALATION PRN ×3 (07:50→20:41)
[2019-01-18] MEDS: BUDESONIDE 1 MG/2 ML NEBU INHALATION SCH ×2 (07:50→20:41)
[2019-01-18] MEDS: SPIRONOLACTONE 25 MG TAB PO SCH ×2 (08:00→22:19)
[2019-01-18] MEDS: FAMOTIDINE 20 MG TAB PO SCH ×2 (08:00→22:19)
[2019-01-18] MEDS: METOPROLOL TARTRATE 12.5 MG TAB PO SCH (08:00)
[2019-01-18] MEDS: metFORMIN 500 MG TAB PO SCH ×2 (08:00→17:16)
[2019-01-18] MEDS: LISINOPRIL 2.5 MG TAB PO SCH (08:00)
[2019-01-18] MEDS: ASPIRIN 81 MG PO SCH (08:00)
[2019-01-18] MEDS: ATORVASTATIN 80 MG TAB PO SCH (08:00)
[2019-01-18] MEDS: MULTIVITAMINS, THERA 1 EACH TAB PO SCH (08:01)
[2019-01-18] MEDS: ERTAPENEM 1 GM in SODIUM CHLORIDE 0.9% 50 ML IVPB SCH (08:01)
[2019-01-18] MEDS: INSULIN ASPART (NovoLOG) 100 UNIT/ML VIAL SQ SCH ×4 (08:02→22:00)
[2019-01-18] MEDS: SERTRALINE 50 MG TAB PO SCH (08:03)
[2019-01-18] MEDS: FUROSEMIDE 80 MG TAB PO SCH ×2 (08:04→17:15)
[2019-01-18] MEDS: SILVER sulfADIAZINE Cream 400 GM 1 APPLIC APPLIC TOPICAL SCH (08:05)
[2019-01-18 08:12] LABS: Calcium 8.9 mg/dL (8.4-10.2); Potassium 4.9 mmol/L (3.5-5.1)
[2019-01-18 11:54] LABS: Glucose,Whole Blood 161 mg/dL (75-99)
--- NOTE | 2019-01-18 14:31 | XR ---
EXAMINATION TYPE: XR chest 2V DATE OF EXAM: 01/18/2019 COMPARISON: Prior chest x-ray 01/15/2019 HISTORY: Congestive heart failure TECHNIQUE: Frontal and lateral views of the chest are obtained. FINDINGS: There is retrocardiac density, obscured left hemidiaphragm. Linear band is present lateral ly in the right mid chest. No pneumothorax. Interstitium appears prominently. The cardiac silhouette size is stable. There are coronary artery calcifications present. Intracardiac defibrillator is stab le. The osseous structures are intact. IMPRESSION: There may be pulmonary venous hypertension and interstitial edema. Possible left lower l obe atelectasis versus pneumonia or edema and associated effusion.
--- NOTE | 2019-01-18 14:52 | NM ---
EXAMINATION TYPE: NM bone 3 phase DATE OF EXAM: 01/18/2019 COMPARISON: NONE HISTORY: Osteomyelitis left heel Triple phase bone scintigraphy was performed following the injection of 24.1 mCi Tc 99m MDP. Immedia te images and 3 hours post injection images acquired. FINDINGS: Mild increased uptake noted on blood flow and blood pool imaging within the left foot is compared to the right. There is some focal increased uptake seen on delayed imaging at the level of the posterior left calcaneus. IMPRESSION: Findings compatible with osteomyelitis of the posterior left calcaneus
[2019-01-18] MEDS ORDERED: POTASSIUM CHLORIDE ER 20 MEQ TAB.ER PO STA (15:33)
[2019-01-18 17:03] LABS: Glucose,Whole Blood 157 mg/dL (75-99)
--- NOTE | 2019-01-18 18:11 | P.PN ---
Subjective 69-year-old gentleman is admitted for infection of thelower extremity. Initially started on antibiotics. Infectious disease was consulted. They had a bone scan done which showed osteomyelitis of the left calcaneus. Patient the time examination does not complain of any fevers or chills, no chest pain racing heart, no cough no shortness of breath. Objective - Vital Signs Vital signs: Vital Signs Temp 97.5 F L 01/18/19 12:20 Pulse 65 01/18/19 12:20 Resp 16 01/18/19 12:20 BP 96/57 01/18/19 12:20 Pulse Ox 99 01/18/19 12:20 Intake & Output 01/17/19 01/18/19 01/18/19 18:59 06:59 18:59 Intake Total 590 Output Total 1300 350 Balance -1300 -350 590 Weight 123.4 kg 122.3 kg Intake: Oral 590 Output: Urine 1300 350 Other: Voiding Method Urinal Urinal # Voids 2 1 3 # Bowel Movements 1 4 - Exam On exam, alert and oriented x3. HEENT: Conjunctivae normal. eyes normal. NECK: No JVD. No thyroid enlargement. No LNs CARDIOVASCULAR: S1, S2 muffled. No murmur RESPIRATION: Breath sounds diminished in the bases. No rhonchi or crackles. No bronchial breathing. ABDOMEN: Soft, nontender . No guarding. no masses palpable. No ascites, No hepatosplenomegaly.Bowel sounds heard. LEGS: the bilateral lower extremities are wrapped in dressing NERVOUS SYSTEM: Cranial N 2-12 grossly normal. Moves all 4 limbs. No focal deficits. No sensory deficit. No signs of cerebellar dysfucntion. Skin: no ulcer no rash - Labs CBC & Chem 7: 01/15/19 14:02 01/18/19 07:10 Labs: Abnormal Lab Results - Last 24 Hours (Table) 01/17/19 01/18/19 01/18/19 Range/Units 20:04 06:52 07:10 BUN 26 H (9-20) mg/dL Glucose 144 H (74-99) mg/dL POC Glucose (mg/dL) 161 H 159 H (75-99) mg/dL 01/18/19 01/18/19 Range/Units 11:52 17:01 BUN (9-20) mg/dL Glucose (74-99) mg/dL POC Glucose (mg/dL) 161 H 157 H (75-99) mg/dL Microbiology - Last 24 Hours (Table) 01/15/19 16:15 Blood Culture - Preliminary Blood No Growth after 48 hours 01/16/19 13:06 Gram Stain - Preliminary Foot - Left Wound Culture - Preliminary Gram Neg Bacilli Group D Enterococcus Assessment and Plan Assessment: - osteomyelitis of the left calcaneus - CHF exacerbation - diabetes mellitus - Hyperlipidemia - Hypertension - COPD - CAD - continue antibiotics as per ID recommendations - Anticipate antibiotics for longer duration of times as the patient having vasculitis of the calcaneus - We'll decrease Lasix from 80 twice a day to 40 twice a day - cardiology consulted awaiting recommendations - We'll monitor labs - Follow the patient
[2019-01-18] MEDS ORDERED: FUROSEMIDE 10 MG/ML 4 ML VIAL IV SCH (21:00)
[2019-01-18 21:35] LABS: Glucose,Whole Blood 118 mg/dL (75-99)
[2019-01-18] MEDS ORDERED: VANCOMYCIN IV PER PHARMACY 1 EACH MISC MISCELLANE PRN (21:57)
[2019-01-18] MEDS: NICOTINE 7MG/24HR PATCH TRANSDERM SCH (22:01)
[2019-01-18] MEDS: MIRTAZAPINE 15 MG TAB PO SCH (22:19)
[2019-01-18] MEDS: HYDROcodone/APAP 7.5-325MG 1 EACH TAB PO PRN (22:19)
[2019-01-18] MEDS: VANCOMYCIN 2,000 MG in SODIUM CHLORIDE 0.9% 500 ML 500 ML IVPB SCH (22:20)
[2019-01-19 07:00] LABS: Glucose,Whole Blood 144 mg/dL (75-99)
[2019-01-19] MEDS: BUDESONIDE 1 MG/2 ML NEBU INHALATION SCH ×2 (07:03→20:33)
[2019-01-19] MEDS: IPRATROPIUM-ALBUTEROL 3 ML NEB INHALATION PRN ×2 (07:03→20:33)
[2019-01-19] MEDS: LISINOPRIL 2.5 MG TAB PO SCH (08:20)
[2019-01-19] MEDS: INSULIN ASPART (NovoLOG) 100 UNIT/ML VIAL SQ SCH ×4 (08:20→20:25)
[2019-01-19] MEDS: ASPIRIN 81 MG PO SCH (08:20)
[2019-01-19] MEDS: metFORMIN 500 MG TAB PO SCH ×2 (08:20→17:35)
[2019-01-19] MEDS: FAMOTIDINE 20 MG TAB PO SCH ×2 (08:20→20:24)
[2019-01-19] MEDS: ATORVASTATIN 80 MG TAB PO SCH (08:20)
[2019-01-19] MEDS: METOPROLOL TARTRATE 12.5 MG TAB PO SCH (08:20)
[2019-01-19] MEDS: ERTAPENEM 1 GM in SODIUM CHLORIDE 0.9% 50 ML IVPB SCH (08:21)
[2019-01-19] MEDS: MULTIVITAMINS, THERA 1 EACH TAB PO SCH (08:21)
[2019-01-19] MEDS: SPIRONOLACTONE 25 MG TAB PO SCH ×2 (08:21→20:24)
[2019-01-19] MEDS: SERTRALINE 50 MG TAB PO SCH (08:22)
[2019-01-19 08:57] LABS: HCT 32.8 % (39.0-53.0); HGB 10.6 gm/dL (13.0-17.5); Hypochromasia Slight; MCH 29.2 pg (25.0-35.0); MCHC 32.2 g/dL (31.0-37.0); MCV 90.7 fL (80.0-100.0); Platelet Count 209 k/uL (150-450); RBC 3.62 m/uL (4.30-5.90); RDW 15.5 % (11.5-15.5); WBC 6.8 k/uL (3.8-10.6)
[2019-01-19] MEDS ORDERED: FUROSEMIDE 10 MG/ML 4 ML VIAL IV SCH (09:00)
[2019-01-19] MEDS: SILVER sulfADIAZINE Cream 400 GM 1 APPLIC APPLIC TOPICAL SCH (09:13)
[2019-01-19 09:25] LABS: Calcium 9.4 mg/dL (8.4-10.2); Potassium 4.5 mmol/L (3.5-5.1)
[2019-01-19 11:21] LABS: Glucose,Whole Blood 121 mg/dL (75-99)
--- NOTE | 2019-01-19 11:43 | P.CRDCN ---
History of Present Illness History of present illness: This is a pleasant 74-year-old male past medical history significant for ischemic cardiomyopathy, chronic systolic heart failure, coronary artery disease status post stent placement to the proximal LAD and PLV branch of the RCA with residual intermediate disease involving the left main and left circumflex, peripheral vascular disease, status post AICD, hypertension, diabetes mellitus, dyslipidemia, COPD and chronic nicotine dependence. He follows in the office with Dr. Rowell. Juliet in consultation secondary to heart failure. He initially presented to the hospital January 15 secondary to left heel ulcer that was not healing and secondary shortness of breath associated w ith a 5 pound weight gain in 2 days. He has been seen in consultation by infectious disease and is currently maintained on IV antibiotics as well as IV Lasix. Bone scan shows evidence of osteomyelitis. Apparently he was showing no improvement thus prompting a cardiology consultation. He is seen and examined resting comfortably lying flat in bed in no acute distress. He complains of shortness of breath at rest and also with any mild exertion. Overall he states he feels extremely fatigued. He denies chest discomfort, palpitations, nausea, vomiting, dizziness or diaphoresis. EKG on admission reveals sinus mechanism with first-degree AV block, incomplete right bundle branch block and poor R-wave progression. Chest x-ray on admission reveals bibasilar effusions and blunting of the costoph renic angles. Repeat chest x-ray yesterday morning reveals pulmonary venous hypertension and interstitial edema, left lower lobe atelectasis versus possible pneumonia or edema with associated effusion. Laboratory data reviewed, WBC 6.8, hemoglobin 10.6, platelets 209, sodium 140, potassium 4.5, creatinine 1.05, proBNP 2680, cardiac enzymes negative 3. Current cardiac medications include Aldactone 25 mg twice a day, lisinopril 2.5 mg daily, aspirin 81 mg daily, atorvastatin 80 mg daily, Lasix 80 mg twice a day, Lopressor 12.5 mg daily. Most recent echocardiogram obtained October 2018 reveals severely impaired LV systolic function with ejection fraction 20-25%, basal inferior, basal inferior septal, mid anteroseptal, apical septal LV wall motion hypokinesia, mild aortic regurgitation, mild aortic stenosis. At the time of my exam: CONSTITUTIONAL: Denies fever. Denies chills. EYES: Denies blurred vision. Denies vision changes. Denies eye pain. EARS, NOSE, MOUTH & THROAT: Denies headache. Denies sore throat. Denies ear pain. CARDIOVASCULAR: Denies chest pain. Complains of shortness of breath. Denies orthopnea. Denies PND. Denies palpitations. RESPIRATORY: Denies cough. GASTROINTESTINAL: Denies abdominal pain. Denies diarrhea. Denies constipation. Denies nausea. Denies vomiting. MUSCULOSKELETAL: Denies myalgias. INTEGUMENTARY: Denies pruitis. Denies rash. NEUROLOGIC: Denies numbness. Denies tingling. Denies weakness. PSYCHIATRIC: Denies anxiety. Denies depression. ENDOCRINE: Complains of fatigue. Denies weight change. Denies polydipsia. Denies polyurina. GENITOURINARY: Denies burning, hematuria or urgency with micturation. HEMATOLOGIC: Denies history of anemia. Denies bleeding. Blood pressure 105/62 heart rate 71 afebrile maintaining oxygen saturation on room air GENERAL: This is a 74-year-old male in no apparent distress at the time of my examination. HEENT: Head is atraumatic, normocephalic. Pupils are equal, round. Sclerae anicteric. Conjunctivae are clear. Mucous membranes of the mouth are moist. Neck is supple. There is no jugular venous distention. No carotid bruit is heard. LUNGS: Bibasilar rales, no wheezes or rhonchi. No chest wall tenderness is noted on palpation or with deep breathing. Diminished bilaterally. HEART: Regular rate and rhythm with systolic ejection murmur at the left sternal border, no rubs or gallops. S1 and S2 heard. ABDOMEN: Soft, nontender. Bowel sounds are heard. No organomegaly noted. EXTREMITIES: Pitting edema bilateral lower extremities up to the mid-thigh. Bilateral evangelista wraps in place. VASCULAR: Radial and dorsalis pedis pulses palpated, no evidence of clubbing. NEUROLOGIC: Patient is awake, alert and oriented x3. ASSESSMENT Acute on chronic systolic heart failure, EF 20-25% Diabetic left foot ulcer Osteomyelitis Ischemic cardiomyopathy status post AICD placement History of coronary artery disease Hypertension Dyslipidemia Diabetes mellitus COPD Chronic nicotine dependence PLAN IV lasix with no improvement, put on lasix infusion 10 mg. Follow electrolytes and kidney function in the morning. Document strict intake and output along with daily weights. We will ask the case resolution specialist to check Entresto coverage. Initiate on 24/26 mg BID starting tomorrow. Discontinue lisinopril. Further recommendations to follow based on clinical course. Thank you kindly for this consultation. Nurse Practitioner note has been reviewed, I agree with a documented findings and plan of care. Patient was seen and examined. Past Medical History Past Medical History: Chest Pain / Angina, Heart Failure, COPD, Diabetes Mellitus, Hyperlipidemia, Hypertension, Myocardial Infarction (OK), Rheumatoid Arthritis (RA) Additional Past Medical History / Comment(s): past edema in legs ,2016 rt.foot(heel) wound, bilat leg and hand neuropathy(unable to take gabapentin), tx at [facility]. for rt hand tenosynovitis, poor circulation Last Myocardial Infarction Date:: 2010 History of Any Multi-Drug Resistant Organisms: MRSA, VRE Date of last positivie culture/infection: 12/08/15 MDRO Source:: RIGHT FOOT MRSA AND VRE Past Surgical History: Appendectomy, Cholecystectomy, Heart Catheterization With Stent, Hernia Repair, Tonsillectomy Additional Past Surgical History / Comment(s): cervical fusion laminactomy , left carpal tunnel release, cataract left eye, HEART STENT X2, 10-16-15 PTBA /RT LEG STENT, rt hand x2 surgery, umb hernia, past picc line, AICD [address]hatia Past Anesthesia/Blood Transfusion Reactions: Postoperative Nausea & Vomiting (PONV) Additional Past Anesthesia/Blood Transfusion Reaction / Comment(s): .PT STATED AFTER HAND SX HAD DIFFICULTY URINATING AND PAIN MEDS CONSTIPATE HIM. Date of Last Stent Placement:: 12/2013 Type of Cardiac Device: AICD Device Placement Date:: 2014 Past Psychological History: No Psychological Hx Reported Additional Psychological History / Comment(s): PT LIVES AT HOME WITH HIS (IS CAREGIVER TO HIS ). 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 Remains a smoker. Denies current alcohol use. No travel. Was in the [employer] in his youth. No animals at home Smoking Status: Current every day smoker Past Alcohol Use History: None Reported Additional Past Alcohol Use History / Comment(s): PT STARTED SMOKING AT AGE 14 WORKED UP TO 1.5 PPD BUT HAS CUT DOWN TO 1/2 PPD. He denies any marijuana or illicit drug use. He denies any alcohol use. 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 No pets in the home. Past Drug Use History: None Reported - Past Family History Mother Additional Family Medical History / Comment(s): PT STATED MOM WAS HEALTHY BUT IN OLDER AGE GOT PNE- FROM COMPLICATIONS OF PNE. Father Family Medical History: Osteoarthritis (OA) Additional Family Medical History / Comment(s): ULCERS, HEART PROBLEMS HAD BYPASS,BACK SURGURY Medications and Allergies Home Medications Medication Instructions Recorded Confirmed Type HYDROcodone/APAP 7.5-325MG [[place] 1 tab PO Q6HR PRN 11/07/15 01/15/19 History 7.5-325] Aspirin [Adult Low Dose Aspirin EC] 81 mg PO DAILY 04/10/16 01/15/19 History Atorvastatin [Lipitor] 80 mg PO DAILY 08/06/16 01/15/19 History metFORMIN HCL [Glucophage] 1,000 mg PO BID 08/28/17 01/15/19 History Metoprolol Tartrate [Lopressor] 12.5 mg PO DAILY 08/23/18 01/15/19 History Lisinopril [Zestril] 2.5 mg PO DAILY #90 tab 08/27/18 01/15/19 Rx Mirtazapine [Remeron] 15 mg PO HS 11/02/18 01/15/19 History Nitroglycerin Sl Tabs [Nitrostat] 0.4 mg SL Q5M PRN 11/02/18 01/15/19 History Sertraline [Zoloft] 50 mg PO DAILY 11/02/18 01/15/19 History Spironolactone [Aldactone] 25 mg PO BID #60 tab 11/04/18 01/15/19 Rx Furosemide [Lasix] 80 mg PO BID@0900,1600 tab 11/27/18 01/15/19 Rx Sacubitril/Valsartan [Entresto 24 1 each PO BID #60 tablet 01/19/19 Rx mg-26 mg Tablet] Allergies Allergy/AdvReac Type Severity Reaction Status Date / Time Penicillins Allergy Rash/Hives Verified 01/15/19 16:45 gabapentin [From Neurontin] AdvReac Nausea Verified 01/15/19 16:45 Physical Exam Vitals: Vital Signs Temp Pulse Pulse Resp BP Pulse Ox 01/19/19 07:22 76 01/19/19 07:03 74 01/19/19 05:47 97.4 F L 71 18 105/62 96 01/19/19 00:27 97.9 F 01/18/19 23:00 76 18 01/18/19 21:14 98.3 F 76 18 107/65 99 01/18/19 20:58 76 01/18/19 20:42 77 97 01/18/19 12:20 97.5 F L 65 16 96/57 99 01/18/19 11:57 72 01/18/19 11:47 76 Intake and Output 01/18/19 01/19/19 01/19/19 22:59 06:59 14:59 Intake Total 500 Output Total 450 600 Balance -450 -100 Intake: Intake, IV Titration 500 Amount Vancomycin 2,000 mg In 500 Sodium Chloride 0.9% 500 ml 500 ml @ 167 mls/hr IVPB Q16H [facility] Rx#: [id number] Output: Urine 450 600 Other: Voiding Method Urinal # Voids 3 Results 01/19/19 07:58 01/19/19 07:58 CBC 01/19/19 Range/Units 07:58 WBC 6.8 (3.8-10.6) k/uL RBC 3.62 L (4.30-5.90) m/uL Hgb 10.6 L (13.0-17.5) gm/dL Hct 32.8 L (39.0-53.0) % Plt Count 209 (150-450) k/uL Comprehensive Metabolic Panel 01/19/19 Range/Units 07:58 Sodium 140 (137-145) mmol/L Potassium 4.5 (3.5-5.1) mmol/L Chloride 106 (98-107) mmol/L Carbon Dioxide 25 (22-30) mmol/L BUN 24 H (9-20) mg/dL Creatinine 1.05 (0.66-1.25) mg/dL Glucose 131 H (74-99) mg/dL Calcium 9.4 (8.4-10.2) mg/dL Current Medications Generic Name Dose Route Start Last Admin Trade Name Freq PRN Reason Stop Dose Admin Hydrocodone Bitart/Acetaminophen 1 each 01/15/19 16:41 01/18/19 22:19 [place] 7.5-325 PO 1 each Q6HR PRN Administration Pain Albuterol/Ipratropium 3 ml 01/16/19 22:52 01/19/19 07:03 Duoneb 0.5 Mg-3 Mg/3 Ml Soln INHALATION 3 ml RT-QID PRN Administration Shortness Of Breath Or Wheezing Aspirin 81 mg 01/16/19 09:00 01/19/19 08:20 Aspirin PO 81 mg DAILY [facility] Administration Atorvastatin Calcium 80 mg 01/16/19 09:00 01/19/19 08:20 Lipitor PO 80 mg DAILY [facility] Administration Budesonide 1 mg 01/16/19 22:55 01/19/19 07:03 Pulmicort INHALATION 1 mg RT-BID [facility] Administration Famotidine 20 mg 01/15/19 21:00 01/19/19 08:20 Pepcid PO 20 mg BID [facility] Administration Ertapenem 1 gm/ Sodium 50 mls @ 100 mls/hr 01/16/19 13:15 01/19/19 08:21 Chloride IVPB 100 mls/hr DAILY [facility] Administration Protocol Vancomycin HCl 2,000 mg/ 500 mls @ 167 mls/hr 01/18/19 23:00 01/18/19 22:20 Sodium Chloride IVPB 167 mls/hr Q16H [facility] Administration Furosemide 100 mg/ Sodium 100 mls @ 10 mls/hr 01/19/19 11:00 Chloride IV .Q10H [facility] 10 MG/HR Insulin Aspart 0 unit 01/15/19 22:55 01/19/19 08:20 Novolog SQ 1 unit ACHS [facility] Administration Protocol Metformin HCl 1,000 mg 01/16/19 07:30 01/19/19 08:20 Glucophage PO 1,000 mg BID-W/MEALS [facility] Administration Metoprolol Tartrate 12.5 mg 01/16/19 09:00 01/19/19 08:20 Lopressor PO 12.5 mg DAILY [facility] Administration Mirtazapine 15 mg 01/15/19 21:00 01/18/19 22:19 Remeron PO 15 mg HS [facility] Administration Multivitamins 1 each 01/16/19 13:15 01/19/19 08:21 Theragran PO 1 each DAILY [facility] Administration Naloxone HCl 0.2 mg 01/15/19 16:31 Narcan IV Q2M PRN Opioid Reversal Nicotine 1 patch 01/16/19 23:00 01/18/19 22:01 Habitrol 7mg/24hr Patch TRANSDERM Not Given DAILY@2100 [facility] Nitroglycerin 0.4 mg 01/16/19 22:51 Nitrostat SUBLINGUAL Q5M PRN Chest Pain Sacubitril/Valsartan 1 each 01/20/19 21:00 Entresto 24 Mg-26 Mg Tablet PO BID [facility] Sertraline HCl 50 mg 01/16/19 09:00 01/19/19 08:22 Zoloft PO 50 mg DAILY [facility] Administration Silver Sulfadiazine 1 applic 01/16/19 13:15 01/19/19 09:13 Silvadene Cream TOPICAL 1 applic DAILY [facility] Administration Spironolactone 25 mg 01/15/19 21:00 01/19/19 08:21 Aldactone PO 25 mg BID [facility] Administration Intake and Output 01/18/19 01/19/19 01/19/19 22:59 06:59 14:59 Intake Total 500 Output Total 450 600 Balance -450 -100 Intake: Intake, IV Titration 500 Amount Vancomycin 2,000 mg In 500 Sodium Chloride 0.9% 500 ml 500 ml @ 167 mls/hr IVPB Q16H [facility] Rx#: [id number] Output: Urine 450 600 Other: Voiding Method Urinal # Voids 3 01/19/19 07:58 01/19/19 07:58
[2019-01-19] MEDS: FUROSEMIDE 100 MG in SODIUM CHLORIDE 0.9% 90 ML IV SCH ×2 (11:47→21:15)
--- NOTE | 2019-01-19 15:43 | P.PN ---
Subjective 69-year-old gentleman is admitted for infection of thelower extremity. Initially started on antibiotics. Infectious disease was consulted. They had a bone scan done which showed osteomyelitis of the left calcaneus. 01/18/2019 Patient the time examination does not complain of any fevers or chills, no chest pain racing heart, no cough no shortness of breath. 01/19/2019 Patient started on Lasix infusion Swelling better Doesn't feel short of breath no cough, no chest pain racing heart Objective - Vital Signs Vital signs: Vital Signs Temp 97.8 F 01/19/19 12:13 Pulse 66 01/19/19 12:13 Resp 17 01/19/19 12:13 BP 104/62 01/19/19 12:13 Pulse Ox 96 01/19/19 12:13 Intake & Output 01/18/19 01/19/19 01/19/19 18:59 06:59 18:59 Intake Total 590 500 Output Total 1050 Balance 590 -550 Weight 122.3 kg Intake: Intake, IV Titration 500 Amount Vancomycin 2,000 mg In 500 Sodium Chloride 0.9% 500 ml 500 ml @ 167 mls/hr IVPB Q16H [facility] Rx#: [id number] Oral 590 Output: Urine 1050 Other: Voiding Method Urinal # Voids 3 3 # Bowel Movements 4 - Exam On exam, alert and oriented x3. HEENT: Conjunctivae normal. eyes normal. NECK: No JVD. No thyroid enlargement. No LNs CARDIOVASCULAR: S1, S2 muffled. No murmur RESPIRATION: Breath sounds diminished in the bases. No rhonchi or crackles. No bronchial breathing. ABDOMEN: Soft, nontender . No guarding. no masses palpable. No ascites, No hepatosplenomegaly.Bowel sounds heard. LEGS: the bilateral lower extremities are wrapped in dressing NERVOUS SYSTEM: Cranial N 2-12 grossly normal. Moves all 4 limbs. No focal deficits. No sensory deficit. No signs of cerebellar dysfucntion. Skin: no ulcer no rash - Labs CBC & Chem 7: 01/19/19 07:58 01/19/19 07:58 Labs: Abnormal Lab Results - Last 24 Hours (Table) 01/18/19 01/18/19 01/19/19 Range/Units 17:01 21:15 06:59 RBC (4.30-5.90) m/uL Hgb (13.0-17.5) gm/dL Hct (39.0-53.0) % BUN (9-20) mg/dL Glucose (74-99) mg/dL POC Glucose (mg/dL) 157 H 118 H 144 H (75-99) mg/dL 01/19/19 01/19/19 01/19/19 Range/Units 07:58 07:58 11:20 RBC 3.62 L (4.30-5.90) m/uL Hgb 10.6 L (13.0-17.5) gm/dL Hct 32.8 L (39.0-53.0) % BUN 24 H (9-20) mg/dL Glucose 131 H (74-99) mg/dL POC Glucose (mg/dL) 121 H (75-99) mg/dL Microbiology - Last 24 Hours (Table) 01/16/19 13:06 Gram Stain - Preliminary Foot - Left Wound Culture - Preliminary Klebsiella pneumoniae Enterococcus faecalis Presumptive Staph aureus 01/15/19 16:15 Blood Culture - Preliminary Blood No Growth after 72 hours Assessment and Plan Assessment: - osteomyelitis of the left calcaneus - CHF exacerbation - diabetes mellitus - Hyperlipidemia - Hypertension - COPD - CAD Plan 01/18/2019 - continue antibiotics as per ID recommendations - Anticipate antibiotics for longer duration of times as the patient having vasculitis of the calcaneus - We'll decrease Lasix from 80 twice a day to 40 twice a day - cardiology consulted awaiting recommendations - We'll monitor labs - Follow the patient 01/19/2019 - Continue Lasix infusion as per cardiology recommendations - Continue antibiotics - Continue aggressive medical care - We'll follow up on the patient
[2019-01-19] MEDS: VANCOMYCIN 2,000 MG in SODIUM CHLORIDE 0.9% 500 ML 500 ML IVPB SCH (15:57)
[2019-01-19 17:25] LABS: Glucose,Whole Blood 145 mg/dL (75-99)
[2019-01-19 19:29] LABS: Glucose,Whole Blood 146 mg/dL (75-99)
[2019-01-19] MEDS: MIRTAZAPINE 15 MG TAB PO SCH (20:25)
[2019-01-19] MEDS: NICOTINE 7MG/24HR PATCH TRANSDERM SCH (20:26)
[2019-01-20] MEDS: FUROSEMIDE 100 MG in SODIUM CHLORIDE 0.9% 90 ML IV SCH ×3 (02:22→21:57)
[2019-01-20 07:08] LABS: Glucose,Whole Blood 138 mg/dL (75-99)
[2019-01-20 07:59] LABS: HCT 32.3 % (39.0-53.0); HGB 10.3 gm/dL (13.0-17.5); MCH 28.1 pg (25.0-35.0); MCHC 31.7 g/dL (31.0-37.0); MCV 88.6 fL (80.0-100.0); Mean Platelet Volume 8.1; Platelet Count 225 k/uL (150-450); RBC 3.65 m/uL (4.30-5.90); RDW 14.5 % (11.5-15.5); WBC 7.7 k/uL (3.8-10.6)
[2019-01-20 08:21] LABS: Calcium 9.6 mg/dL (8.4-10.2); Potassium 4.6 mmol/L (3.5-5.1)
[2019-01-20] MEDS: INSULIN ASPART (NovoLOG) 100 UNIT/ML VIAL SQ SCH ×4 (08:27→21:44)
[2019-01-20] MEDS: ATORVASTATIN 80 MG TAB PO SCH (08:28)
[2019-01-20] MEDS: ASPIRIN 81 MG PO SCH (08:28)
[2019-01-20] MEDS: MULTIVITAMINS, THERA 1 EACH TAB PO SCH (08:28)
[2019-01-20] MEDS: FAMOTIDINE 20 MG TAB PO SCH ×2 (08:28→21:59)
[2019-01-20] MEDS: LISINOPRIL 2.5 MG TAB PO SCH (08:28)
[2019-01-20] MEDS: metFORMIN 500 MG TAB PO SCH ×2 (08:28→18:52)
[2019-01-20] MEDS: METOPROLOL TARTRATE 12.5 MG TAB PO SCH ×2 (08:28→21:56)
[2019-01-20] MEDS: SPIRONOLACTONE 25 MG TAB PO SCH ×2 (08:28→21:56)
[2019-01-20] MEDS: SERTRALINE 50 MG TAB PO SCH (08:29)
[2019-01-20] MEDS: SILVER sulfADIAZINE Cream 400 GM 1 APPLIC APPLIC TOPICAL SCH (08:29)
[2019-01-20] MEDS: BUDESONIDE 1 MG/2 ML NEBU INHALATION SCH ×2 (09:10→20:12)
[2019-01-20] MEDS ORDERED: LIDOCAINE 1% INJ 10MG/ML (20 ML MDV) SQ ONE (10:00)
--- NOTE | 2019-01-20 10:21 | P.PN ---
Subjective This is a pleasant 74-year-old male past medical history significant for ischemic cardiomyopathy, chronic systolic heart failure, coronary artery disease status post stent placement to the proximal LAD and PLV branch of the RCA with residual intermediate disease involving the left main and left circumflex, peripheral vascular disease, status post AICD, hypertension, diabetes mellitus, dyslipidemia, COPD and chronic nicotine dependence. He follows in the office with Dr. Boyle. Pt seen and examined sitting up on the edge of the bed in no acute distress. Maintained on IV lasix infusion. Weight is down 5 kg from admission. Maintaining a negative fluid balance. Blood pressure 109/65 afebrile and maintaining oxygen saturation on room air. Laboratory data reviewed, sodium 142, potassium 4.6, creatinine 1.13. He currently has no presc ription medication coverage, will continue lisinopril instead of entresto. GENERAL: This is a 74-year-old male in no apparent distress at the time of my examination. HEENT: Head is atraumatic, normocephalic. Pupils are equal, round. Sclerae anicteric. Conjunctivae are clear. Mucous membranes of the mouth are moist. Neck is supple. There is no jugular venous distention. No carotid bruit is heard. LUNGS: Bibasilar rales, no wheezes or rhonchi. No chest wall tenderness is noted on palpation or with deep breathing. Diminished bilaterally. HEART: Regular rate and rhythm with systolic ejection murmur at the left sternal border, no rubs or gallops. S1 and S2 heard. EXTREMITIES: Pitting edema bilateral lower extremities up to the mid-thigh. Bilateral evangelista wraps in place. Slight improvement in swelling from yesterday's exam. ASSESSMENT Acute on chronic systolic heart failure, EF 20-25% Diabetic left foot ulcer Osteomyelitis Ischemic cardiomyopathy status post AICD placement History of coronary artery disease Hypertension Dyslipidemia Diabetes mellitus COPD Chronic nicotine dependence PLAN Continue lasix infusion. Follow electrolytes and kidney function daily. Increase lopressor to 12.5 mg BID, if he tolerates this we will increase to 25 mg BID tomorrow. We will continue to follow and make recommendations accordingly. Nurse Practitioner note has been reviewed, I agree with a documented findings and plan of care. Patient was seen and examined. Objective - Vital Signs Vital signs: Vital Signs Temp 98.0 F 01/20/19 05:00 Pulse 68 01/20/19 05:00 Resp 16 01/20/19 05:00 BP 109/65 01/20/19 05:00 Pulse Ox 92 L 01/20/19 05:00 Intake & Output 01/19/19 01/20/19 01/20/19 18:59 06:59 18:59 Intake Total 2030 620 Output Total 600 2420 Balance 1430 -1800 Weight 118 kg Intake: Intake, IV Titration 140 Amount Furosemide 100 mg In 140 Sodium Chloride 0.9% 90 ml @ 10 MG/HR 10 mls/hr IV .Q10H [facility] Rx#: [id number] Oral 2030 480 Output: Urine 600 2420 Other: Voiding Method Urinal Urinal # Voids 3 - Labs CBC & Chem 7: 01/20/19 07:28 01/20/19 07:28 Labs: Abnormal Lab Results - Last 24 Hours (Table) 01/19/19 01/19/19 01/19/19 Range/Units 11:20 17:24 19:28 RBC (4.30-5.90) m/uL Hgb (13.0-17.5) gm/dL Hct (39.0-53.0) % BUN (9-20) mg/dL Glucose (74-99) mg/dL POC Glucose (mg/dL) 121 H 145 H 146 H (75-99) mg/dL 01/20/19 01/20/19 01/20/19 Range/Units 07:05 07:28 07:28 RBC 3.65 L (4.30-5.90) m/uL Hgb 10.3 L (13.0-17.5) gm/dL Hct 32.3 L (39.0-53.0) % BUN 25 H (9-20) mg/dL Glucose 116 H (74-99) mg/dL POC Glucose (mg/dL) 138 H (75-99) mg/dL Microbiology - Last 24 Hours (Table) 01/16/19 13:06 Gram Stain - Final Foot - Left Wound Culture - Final Klebsiella pneumoniae Enterococcus faecalis Staphylococcus aureus 01/15/19 16:15 Blood Culture - Preliminary Blood No Growth after 96 hours
[2019-01-20] MEDS: ERTAPENEM 1 GM in SODIUM CHLORIDE 0.9% 50 ML IVPB SCH (12:05)
[2019-01-20] MEDS: VANCOMYCIN 2,000 MG in SODIUM CHLORIDE 0.9% 500 ML 500 ML IVPB SCH (12:05)
[2019-01-20 12:43] LABS: Glucose,Whole Blood 129 mg/dL (75-99)
--- NOTE | 2019-01-20 13:35 | P.PN ---
Subjective 69-year-old gentleman is admitted for infection of thelower extremity. Initially started on antibiotics. Infectious disease was consulted. They had a bone scan done which showed osteomyelitis of the left calcaneus. 01/18/2019 Patient the time examination does not complain of any fevers or chills, no chest pain racing heart, no cough no shortness of breath. 01/19/2019 Patient started on Lasix infusion Swelling better Doesn't feel short of breath no cough, no chest pain racing heart 01/20/2019 patient still on Lasix drip says his swelling is better no chest pain or racing heart No cough no shortness of breath Objective - Vital Signs Vital signs: Vital Signs Temp 98.3 F 01/20/19 12:02 Pulse 60 01/20/19 12:02 Resp 18 01/20/19 12:02 BP 102/59 01/20/19 12:02 Pulse Ox 98 01/20/19 12:02 Intake & Output 01/19/19 01/20/19 01/20/19 18:59 06:59 18:59 Intake Total 2030 620 Output Total 600 2420 Balance 1430 -1800 Weight 118 kg Intake: Intake, IV Titration 140 Amount Furosemide 100 mg In 140 Sodium Chloride 0.9% 90 ml @ 10 MG/HR 10 mls/hr IV .Q10H [facility] Rx#: [id number] Oral 2030 480 Output: Urine 600 2420 Other: Voiding Method Urinal Urinal # Voids 3 - Exam On exam, alert and oriented x3. HEENT: Conjunctivae normal. eyes normal. NECK: No JVD. No thyroid enlargement. No LNs CARDIOVASCULAR: S1, S2 muffled. No murmur RESPIRATION: Breath sounds diminished in the bases. No rhonchi or crackles. No bronchial breathing. ABDOMEN: Soft, nontender . No guarding. no masses palpable. No ascites, No hepatosplenomegaly.Bowel sounds heard. LEGS: the bilateral lower extremities are wrapped in dressing NERVOUS SYSTEM: Cranial N 2-12 grossly normal. Moves all 4 limbs. No focal deficits. No sensory deficit. No signs of cerebellar dysfucntion. Skin: no ulcer no rash - Labs CBC & Chem 7: 01/20/19 07:28 01/20/19 07:28 Labs: Abnormal Lab Results - Last 24 Hours (Table) 01/19/19 01/19/1919 Range/Units 17:24 19:28 07:05 RBC (4.30-5.90) m/uL Hgb (13.0-17.5) gm/dL Hct (39.0-53.0) % BUN (9-20) mg/dL Glucose (74-99) mg/dL POC Glucose (mg/dL) 145 H 146 H 138 H (75-99) mg/dL 01/20/19 01/20/19 01/20/19 Range/Units 07:28 07:28 11:19 RBC 3.65 L (4.30-5.90) m/uL Hgb 10.3 L (13.0-17.5) gm/dL Hct 32.3 L (39.0-53.0) % BUN 25 H (9-20) mg/dL Glucose 116 H (74-99) mg/dL POC Glucose (mg/dL) 129 H (75-99) mg/dL Microbiology - Last 24 Hours (Table) 01/16/19 13:06 Gram Stain - Final Foot - Left Wound Culture - Final Klebsiella pneumoniae Enterococcus faecalis Staphylococcus aureus 01/15/19 16:15 Blood Culture - Preliminary Blood No Growth after 96 hours Assessment and Plan Assessment: - osteomyelitis of the left calcaneus - CHF exacerbation - diabetes mellitus - Hyperlipidemia - Hypertension - COPD - CAD Plan 01/18/2019 - continue antibiotics as per ID recommendations - Anticipate antibiotics for longer duration of times as the patient having vasculitis of the calcaneus - We'll decrease Lasix from 80 twice a day to 40 twice a day - cardiology consulted awaiting recommendations - We'll monitor labs - Follow the patient 01/19/2019 - Continue Lasix infusion as per cardiology recommendations - Continue antibiotics - Continue aggressive medical care - We'll follow up on the patient 01/20/2019 - Continue Lasix infusion - Continue antibiotics as per infectious disease - Continue rest of the medical care - We'll follow up on the patient
[2019-01-20 16:27] LABS: Glucose,Whole Blood 164 mg/dL (75-99)
--- NOTE | 2019-01-20 17:19 | P.GSCN ---
History of Present Illness History of present illness: 74-year-old white male, history of chronic wound with eschar formation noted on the left heel patient has this for the last 2 weeks no history of trauma no history of insect bite. Patient was seen by infectious disease and preoperative antibiotic bone scan shows positive for osteo-the wound is tender and there is some redness and discharge noted was followed or smell patient is scheduled for wound debridement and deep culture Patient on examination neck is supple no bruit appreciated chest clear auscultation Abdomen soft nontender Vascular examination femorals are 1+ Left heel wound eschar is is tender and soft formed spelled odor noted with marked redness noted plan is a debridement of the wound and deep culture continue with the same antibiotic Past Medical History Past Medical History: Chest Pain / Angina, Heart Failure, COPD, Diabetes Mellitus, Hyperlipidemia, Hypertension, Myocardial Infarction (CA), Rheumatoid Arthritis (RA) Additional Past Medical History / Comment(s): past edema in legs ,2016 rt.f oot(heel) wound, bilat leg and hand neuropathy(unable to take gabapentin), tx at [facility] for rt hand tenosynovitis, poor circulation Last Myocardial Infarction Date:: 2010 History of Any Multi-Drug Resistant Organisms: MRSA, VRE Year Discovered:: 12/08/15 MDRO Source:: RIGHT FOOT MRSA AND VRE Past Surgical History: Appendectomy, Cholecystectomy, Heart Catheterization With Stent, Hernia Repair, Tonsillectomy Additional Past Surgical History / Comment(s): cervical fusion laminactomy , left carpal tunnel release, cataract left eye, HEART STENT X2, 10-16-15 PTBA /RT LEG STENT, rt hand x2 surgery, umb hernia, past picc line, AICD [address]hatia Past Anesthesia/Blood Transfusion Reactions: Postoperative Nausea & Vomiting (PONV) Additional Past Anesthesia/Blood Transfusion Reaction / Comm: .PT STATED AFTER HAND SX HAD DIFFICULTY URINATING AND PAIN MEDS CONSTIPATE HIM. Date of Last Stent Placement:: 12/2013 Type of Cardiac Device: AICD Device Placement Date:: 2014 Past Psychological History: No Psychological Hx Reported Additional Psychological History / Comment(s): PT LIVES AT HOME WITH HIS (IS CAREGIVER TO HIS ). 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 Remains a smoker. Denies current alcohol use. No travel. Was in the [employer] in his youth. No animals at home Smoking Status: Current every day smoker Past Alcohol Use History: None Reported Additional Past Alcohol Use History / Comment(s): PT STARTED SMOKING AT AGE 14 WORKED UP TO 1.5 PPD BUT HAS CUT DOWN TO 1/2 PPD. He denies any marijuana or illicit drug use. He denies any alcohol use. 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 No pets in the home. Past Drug Use History: None Reported - Past Family History Mother Additional Family Medical History / Comment(s): PT STATED MOM WAS HEALTHY BUT IN OLDER AGE GOT PNE- FROM COMPLICATIONS OF PNE. Father Family Medical History: Osteoarthritis (OA) Additional Family Medical History / Comment(s): ULCERS, HEART PROBLEMS HAD BYPASS,BACK SURGURY Medications and Allergies Home Medications Medication Instructions Recorded Confirmed Type HYDROcodone/APAP 7.5-325MG [[place] 1 tab PO Q6HR PRN 11/07/15 01/15/19 History 7.5-325] Aspirin [Adult Low Dose Aspirin EC] 81 mg PO DAILY 04/10/16 01/15/19 History Atorvastatin [Lipitor] 80 mg PO DAILY 08/06/16 01/15/19 History metFORMIN HCL [Glucophage] 1,000 mg PO BID 08/28/17 01/15/19 History Metoprolol Tartrate [Lopressor] 12.5 mg PO DAILY 08/23/18 01/15/19 History Lisinopril [Zestril] 2.5 mg PO DAILY #90 tab 08/27/18 01/15/19 Rx Mirtazapine [Remeron] 15 mg PO HS 11/02/18 01/15/19 History Nitroglycerin Sl Tabs [Nitrostat] 0.4 mg SL Q5M PRN 11/02/18 01/15/19 History Sertraline [Zoloft] 50 mg PO DAILY 11/02/18 01/15/19 History Spironolactone [Aldactone] 25 mg PO BID #60 tab 11/04/18 01/15/19 Rx Furosemide [Lasix] 80 mg PO BID@0900,1600 tab 11/27/18 01/15/19 Rx Allergies Allergy/AdvReac Type Severity Reaction Status Date / Time Penicillins Allergy Rash/Hives Verified 01/15/19 16:45 gabapentin [From Neurontin] AdvReac Nausea Verified 01/15/19 16:45 Surgical - Exam Vital Signs Temp Pulse Resp BP Pulse Ox 98.1 F 65 20 136/70 97 01/15/19 13:37 01/15/19 13:37 01/15/19 13:37 01/15/19 13:37 01/15/19 13:37 Results - Labs 01/20/19 07:28 01/20/19 07:28 Abnormal Lab Results - Last 24 Hours (Table) 01/19/19 01/19/19 01/20/19 Range/Units 17:24 19:28 07:05 RBC (4.30-5.90) m/uL Hgb (13.0-17.5) gm/dL Hct (39.0-53.0) % BUN (9-20) mg/dL Glucose (74-99) mg/dL POC Glucose (mg/dL) 145 H 146 H 138 H (75-99) mg/dL 01/20/19 01/20/19 01/20/19 Range/Units 07:28 07:28 11:19 RBC 3.65 L (4.30-5.90) m/uL Hgb 10.3 L (13.0-17.5) gm/dL Hct 32.3 L (39.0-53.0) % BUN 25 H (9-20) mg/dL Glucose 116 H (74-99) mg/dL POC Glucose (mg/dL) 129 H (75-99) mg/dL 01/20/19 Range/Units 16:25 RBC (4.30-5.90) m/uL Hgb (13.0-17.5) gm/dL Hct (39.0-53.0) % BUN (9-20) mg/dL Glucose (74-99) mg/dL POC Glucose (mg/dL) 164 H (75-99) mg/dL Microbiology - Last 24 Hours (Table) 01/16/19 13:06 Gram Stain - Final Foot - Left Wound Culture - Final Klebsiella pneumoniae Enterococcus faecalis Staphylococcus aureus 01/15/19 16:15 Blood Culture - Preliminary Blood No Growth after 96 hours Diabetes panel 01/20/19 Range/Units 07:28 Sodium 142 (137-145) mmol/L Potassium 4.6 (3.5-5.1) mmol/L Chloride 104 (98-107) mmol/L Carbon Dioxide 28 (22-30) mmol/L BUN 25 H (9-20) mg/dL Creatinine 1.13 (0.66-1.25) mg/dL Glucose 116 H (74-99) mg/dL Calcium 9.6 (8.4-10.2) mg/dL Calcium panel 01/20/19 Range/Units 07:28 Calcium 9.6 (8.4-10.2) mg/dL Pituitary panel 01/20/19 Range/Units 07:28 Sodium 142 (137-145) mmol/L Potassium 4.6 (3.5-5.1) mmol/L Chloride 104 (98-107) mmol/L Carbon Dioxide 28 (22-30) mmol/L BUN 25 H (9-20) mg/dL Creatinine 1.13 (0.66-1.25) mg/dL Glucose 116 H (74-99) mg/dL Calcium 9.6 (8.4-10.2) mg/dL Adrenal panel 01/20/19 Range/Units 07:28 Sodium 142 (137-145) mmol/L Potassium 4.6 (3.5-5.1) mmol/L Chloride 104 (98-107) mmol/L Carbon Dioxide 28 (22-30) mmol/L BUN 25 H (9-20) mg/dL Creatinine 1.13 (0.66-1.25) mg/dL Glucose 116 H (74-99) mg/dL Calcium 9.6 (8.4-10.2) mg/dL
[2019-01-20 19:52] LABS: Glucose,Whole Blood 137 mg/dL (75-99)
[2019-01-20] MEDS: IPRATROPIUM-ALBUTEROL 3 ML NEB INHALATION PRN (20:12)
[2019-01-20] MEDS ORDERED: SACUBITRIL/VALSARTAN 24 MG-26 MG TABLET PO SCH (21:00)
[2019-01-20] MEDS: HYDROcodone/APAP 7.5-325MG 1 EACH TAB PO PRN (21:55)
[2019-01-20] MEDS: MIRTAZAPINE 15 MG TAB PO SCH (21:55)
[2019-01-20] MEDS: NICOTINE 7MG/24HR PATCH TRANSDERM SCH (22:07)
--- NOTE | 2019-01-20 23:58 | P.PN ---
Subjective Progress Note Date: 01/19/19 Principal diagnosis: Left heel osteomyelitis polymicrobial Patient is a 74-year-old male presenting to the ER with a nonhealing wound at the left heel area. The patient has for a couple of weeks to months with no clear history of any trauma patient has been evaluated by Dr. Richards in both scan has been done that was suspicious for osteomyelitis involving the calcaneus patient did have a local wound cultures obtained which did grow Klebsiella, E. coli and staph aureus with sensitivities of staph aureus pending I was called in last night for evaluation of this patient and adjustment of antibiotic therapy On today's evaluation that is 01/18/2019, patient denies having any fever or any chills denies having any chest pain shortness of cough no abdominal pain. He did have some discomfort to his left heel area and did have slight drainage but no worsening. ROS: Positive point mentioned in HPI rest of the systems negative Past medical and surgical history reviewed Medications reviewed Objective - Vital Signs Vital signs: Vital Signs Temp 97.8 F 01/19/19 20:55 Pulse 67 01/19/19 20:55 Resp 16 01/19/19 23:08 BP 102/82 01/19/19 20:55 Pulse Ox 98 01/19/19 20:55 Intake & Output 01/19/19 01/19/19 01/20/19 06:59 18:59 06:59 Intake Total 500 2030 520 Output Total 1050 600 430 Balance -550 1430 90 Intake: Intake, IV Titration 500 40 Amount Furosemide 100 mg In 40 Sodium Chloride 0.9% 90 ml @ 10 MG/HR 10 mls/hr IV .Q10H [facility] Rx#: [id number] Vancomycin 2,000 mg In 500 Sodium Chloride 0.9% 500 ml 500 ml @ 167 mls/hr IVPB Q16H [facility] Rx#: [id number] Oral 2030 480 Output: Urine 1050 600 430 Other: Voiding Method Urinal Urinal Urinal # Voids 3 3 - Exam GENERAL DESCRIPTION:[ Patient is awake and alert in no distress] HEENT: [Oral mucosa is dry and no pharyngeal erythema] EYES : [No pallor or scleral icterus] RESPIRATORY SYSTEM: [Unlabored breathing clear to auscultation] CARDIA VASCULAR SYSTEM: [S1-S2 regular rate and rhythm no murmur] GI: [Abdominal soft there's no tenderness no organomegaly] EXTREMITIES: [Left heel with necrotic black eschar with some surrounding swelling redness and minimal drainage] = - Labs CBC & Chem 7: 01/20/19 07:28 01/20/19 07:28 Labs: Abnormal Lab Results - Last 24 Hours (Table) 01/19/19 01/19/19 01/19/19 Range/Units 06:59 07:58 07:58 RBC 3.62 L (4.30-5.90) m/uL Hgb 10.6 L (13.0-17.5) gm/dL Hct 32.8 L (39.0-53.0) % BUN 24 H (9-20) mg/dL Glucose 131 H (74-99) mg/dL POC Glucose (mg/dL) 144 H (75-99) mg/dL 01/19/19 01/19/19 01/19/19 Range/Units 11:20 17:24 19:28 RBC (4.30-5.90) m/uL Hgb (13.0-17.5) gm/dL Hct (39.0-53.0) % BUN (9-20) mg/dL Glucose (74-99) mg/dL POC Glucose (mg/dL) 121 H 145 H 146 H (75-99) mg/dL Microbiology - Last 24 Hours (Table) 01/16/19 13:06 Gram Stain - Final Foot - Left Wound Culture - Final Klebsiella pneumoniae Enterococcus faecalis Staphylococcus aureus 01/15/19 16:15 Blood Culture - Preliminary Blood No Growth after 96 hours Assessment and Plan Assessment: 1-patient with left heel wound in this patient who did have necrotic left heel wound with some surrounding swelling redness and the ball scan has been positive for underlying ostomy myelitis with a wound culture currently growing Klebsiella E. coli and staph aureus sensitivities on the staph aureus are currently pending 2-patient to continue with Invanz 1 g daily, along with vancomycin that was e levated last night we will follow up on clinical condition and cultures to further adjust medication if needed Thank you for this consultation will follow this patient along with you Time with Patient: Less than 30
[2019-01-21] MEDS ORDERED: VANCOMYCIN 2,000 MG in SODIUM CHLORIDE 0.9% 500 ML 500 ML IVPB SCH (04:00)
[2019-01-21] MEDS: FUROSEMIDE 100 MG in SODIUM CHLORIDE 0.9% 90 ML IV SCH (06:38)
[2019-01-21] MEDS: HYDROcodone/APAP 7.5-325MG 1 EACH TAB PO PRN (06:41)
[2019-01-21 07:11] LABS: Glucose,Whole Blood 142 mg/dL (75-99)
[2019-01-21 07:35] LABS: HCT 31.6 % (39.0-53.0); HGB 10.5 gm/dL (13.0-17.5); Hypochromasia Slight; MCH 28.7 pg (25.0-35.0); MCHC 33.1 g/dL (31.0-37.0); MCV 86.8 fL (80.0-100.0); Mean Platelet Volume 8.5; Platelet Count 210 k/uL (150-450); RBC 3.64 m/uL (4.30-5.90); RDW 14.4 % (11.5-15.5); WBC 8.1 k/uL (3.8-10.6)
[2019-01-21 08:07] LABS: Calcium 9.4 mg/dL (8.4-10.2); Potassium 4.3 mmol/L (3.5-5.1)
[2019-01-21] MEDS: BUDESONIDE 1 MG/2 ML NEBU INHALATION SCH ×2 (08:16→20:50)
[2019-01-21] MEDS: IPRATROPIUM-ALBUTEROL 3 ML NEB INHALATION PRN ×2 (08:16→20:51)
[2019-01-21] MEDS: INSULIN ASPART (NovoLOG) 100 UNIT/ML VIAL SQ SCH ×4 (09:19→22:18)
[2019-01-21] MEDS: ERTAPENEM 1 GM in SODIUM CHLORIDE 0.9% 50 ML IVPB SCH (10:21)
--- NOTE | 2019-01-21 10:35 | P.PN ---
Subjective Progress Note Date: 01/21/19 This is a 74-year-old gentleman with history of ischemic heart myopathy, chronic systolic heart failure, coronary artery disease with previous stent placement of the LAD and also PLV branch. The RCA and also AICD implantation was admitted to the hospital with increasing shortness of breath and congestive heart failure. Patient is on IV Lasix and seemed to be diuresing fairly well. Patient lost 50 pounds. He is feeling better. Still has significant edema. We'll continue current management for on the 24 hours Objective - Vital Signs Vital signs: Vital Signs Temp 97.9 F 01/21/19 10:11 Pulse 62 01/21/19 10:11 Resp 18 01/21/19 10:11 BP 101/67 01/21/19 10:11 Pulse Ox 96 01/21/19 10:11 Intake & Output 01/20/19 01/21/19 01/21/19 18:59 06:59 18:59 Intake Total 1060 2046.833 Output Total 400 2725 Balance 660 -678.167 Weight 118.2 kg Intake: IV 100 Furosemide 100 mg In 100 Sodium Chloride 0.9% 90 ml @ 10 MG/HR 10 mls/hr IV .Q10H [facility] Rx#: [id number] Intake, IV Titration 100 636.833 Amount Ertapenem 1 gm In Sodium 50 Chloride 0.9% 50 ml @ 100 mls/hr IVPB DAILY [facility] Rx #:[id number] Furosemide 100 mg In 100 86.833 Sodium Chloride 0.9% 90 ml @ 10 MG/HR 10 mls/hr IV .Q10H [facility] Rx#: [id number] Vancomycin 2,000 mg In 500 Sodium Chloride 0.9% 500 ml 500 ml @ 167 mls/hr IVPB Q16H [facility] Rx#: [id number] Oral 960 1310 Output: Urine 400 2725 Other: Voiding Method Urinal Urinal # Voids 3 - Exam GENERAL EXAM: Patient is alert and oriented and doesn't appear to be in any acute distress HEENT: Normocephalic. Normal reaction of pupils, equal size, normal range of extraocular motion. No erythema or exudates in the throat. NECK: No masses, no nuchal rigidity. CHEST: No chest wall deformity. LUNGS: Bilateral few rales HEART: S1 and S2 normal with no audible mumurs or gallops. Regular rhythm, femorals equal on both sides.. ABDOMEN: No hepatosplenomegaly, normal bowel sounds, no guarding or rigidity. SKIN: No rashes CENTRAL NERVOUS SYSTEM: No focal deficits. EXTREMITIES: Significant edema - Labs CBC & Chem 7: 01/21/19 07:03 01/21/19 07:03 Labs: Abnormal Lab Results - Last 24 Hours (Table) 01/20/19 01/20/19 01/20/19 Range/Units 11:19 16:25 19:51 RBC (4.30-5.90) m/uL Hgb (13.0-17.5) gm/dL Hct (39.0-53.0) % BUN (9-20) mg/dL Glucose (74-99) mg/dL POC Glucose (mg/dL) 129 H 164 H 137 H (75-99) mg/dL 01/21/19 01/21/19 01/21/19 Range/Units 07:03 07:03 07:10 RBC 3.64 L (4.30-5.90) m/uL Hgb 10.5 L (13.0-17.5) gm/dL Hct 31.6 L (39.0-53.0) % BUN 27 H (9-20) mg/dL Glucose 126 H (74-99) mg/dL POC Glucose (mg/dL) 142 H (75-99) mg/dL Microbiology - Last 24 Hours (Table) 01/15/19 16:15 Blood Culture - Preliminary Blood No Growth after 120 hours Assessment and Plan (1) CHF (congestive heart failure) Current Visit: Yes Status: Acute Code(s): I50.9 - HEART FAILURE, UNSPECIFIED SNOMED Code(s): 25309271 (2) History of COPD Current Visit: Yes Status: Acute Code(s): Z87.09 - PERSONAL HISTORY OF OTHER DISEASES OF THE RESPIRATORY SYSTEM SNOMED Code(s): 654613386 (3) Bilateral lower extremity edema Current Visit: No Status: Acute Code(s): R60.0 - LOCALIZED EDEMA SNOMED Code(s): 552551567 (4) CAD (coronary artery disease) Current Visit: No Status: Acute Code(s): I25.10 - ATHSCL HEART DISEASE OF [place] CORONARY ARTERY W/O ANG PCTRS SNOMED Code(s): 746967815 (5) CHF exacerbation Current Visit: No Status: Acute Code(s): I50.9 - HEART FAILURE, UNSPECIFIED SNOMED Code(s): 277805530 Plan: Continue current medical therapy. Follow electrolytes and creatinine. Electrolytes and BUN/creatinine have been stable. Increase activity.
[2019-01-21 11:18] LABS: Glucose,Whole Blood 134 mg/dL (75-99)
[2019-01-21] MEDS ORDERED: SODIUM CHLORIDE 0.9% 1,000 ML IV ONE (12:14)
[2019-01-21] MEDS ORDERED: MIDAZOLAM 2 MG/2 ML VIAL ONE (13:21)
[2019-01-21] MEDS ORDERED: ROPIVACAINE 5 MG/ML 30 ML VIAL ONE (13:21)
[2019-01-21] MEDS ORDERED: PROPOFOL 10 MG/ML 20 ML VIAL IV ONE (13:21)
[2019-01-21] MEDS ORDERED: fentaNYL (PF) 50 MCG/ML 2 ML AMP ONE (13:21)
[2019-01-21] MEDS: FAMOTIDINE 20 MG TAB PO SCH ×2 (13:31→22:18)
[2019-01-21] MEDS: ASPIRIN 81 MG PO SCH (13:31)
[2019-01-21] MEDS: SPIRONOLACTONE 25 MG TAB PO SCH ×2 (13:32→22:24)
[2019-01-21] MEDS: MULTIVITAMINS, THERA 1 EACH TAB PO SCH (13:32)
--- NOTE | 2019-01-21 14:01 | P.ANPRN ---
Procedure Note - Anesthesia - Nerve Block Performed Left Popliteal Single Time Out Performed: Yes Date of Procedure: 01/21/19 Procedure Start Time: 13:10 Procedure Stop Time: 13:15 Location of Patient Procedure: PreOp Indication: Acute Post-Operative Pain, Dx/Pain Location (Left leg pain), Requested by physician Sedation Type: Sedate with meaningful contact maintained Preparation: Sterile Prep Position: Right Lateral Catheter: None Needle Types: On-Q Needle Gauge: 21 Technique: Ultrasound Injectate: 0.5% Ropivacaine (see comment for volume) (20ml) Blood Aspirated: No Resistance on Injection: Normal Events: Uneventful and Well Tolerated
--- NOTE | 2019-01-21 15:15 | P.PN ---
Subjective 69-year-old gentleman is admitted for infection of thelower extremity. Initially started on antibiotics. Infectious disease was consulted. They had a bone scan done which showed osteomyelitis of the left calcaneus. 01/18/2019 Patient the time examination does not complain of any fevers or chills, no chest pain racing heart, no cough no shortness of breath. 01/19/2019 Patient started on Lasix infusion Swelling better Doesn't feel short of breath no cough, no chest pain racing heart 01/20/2019 patient still on Lasix drip says his swelling is better no chest pain or racing heart No cough no shortness of breath 01/21/2019 Patient is supposed to be going for debridement today Still on Lasix drip Shortness of breath better No chest pain racing heart Objective - Vital Signs Vital signs: Vital Signs Temp 97.4 F L 01/21/19 13:56 Pulse 64 01/21/19 14:26 Resp 16 01/21/19 14:26 BP 107/58 01/21/19 14:26 Pulse Ox 95 01/21/19 14:26 Intake & Output 01/20/19 01/21/19 01/21/19 18:59 06:59 18:59 Intake Total 1060 2046.833 100 Output Total 400 2725 10 Balance 660 -678.167 90 Weight 118.2 kg Intake: IV 100 100 Furosemide 100 mg In 100 Sodium Chloride 0.9% 90 ml @ 10 MG/HR 10 mls/hr IV .Q10H [facility] Rx#: [id number] Intake, IV Titration 100 636.833 Amount Ertapenem 1 gm In Sodium 50 Chloride 0.9% 50 ml @ 100 mls/hr IVPB DAILY [facility] Rx #:[id number] Furosemide 100 mg In 100 86.833 Sodium Chloride 0.9% 90 ml @ 10 MG/HR 10 mls/hr IV .Q10H [facility] Rx#: [id number] Vancomycin 2,000 mg In 500 Sodium Chloride 0.9% 500 ml 500 ml @ 167 mls/hr IVPB Q16H [facility] Rx#: [id number] Oral 960 1310 Output: Urine 400 2725 Estimated Blood Loss 10 Other: Voiding Method Urinal Urinal # Voids 3 - Exam On exam, alert and oriented x3. HEENT: Conjunctivae normal. eyes normal. NECK: No JVD. No thyroid enlargement. No LNs CARDIOVASCULAR: S1, S2 muffled. No murmur RESPIRATION: Breath sounds diminished in the bases. No rhonchi or crackles. No bronchial breathing. ABDOMEN: Soft, nontender . No guarding. no masses palpable. No ascites, No hepatosplenomegaly.Bowel sounds heard. LEGS: the bilateral lower extremities are wrapped in dressing NERVOUS SYSTEM: Cranial N 2-12 grossly normal. Moves all 4 limbs. No focal deficits. No sensory deficit. No signs of cerebellar dysfucntion. Skin: no ulcer no rash - Labs CBC & Chem 7: 01/21/19 07:03 01/21/19 07:03 Labs: Abnormal Lab Results - Last 24 Hours (Table) 01/20/19 01/20/19 01/21/19 Range/Units 16:25 19:51 07:03 RBC (4.30-5.90) m/uL Hgb (13.0-17.5) gm/dL Hct (39.0-53.0) % BUN 27 H (9-20) mg/dL Glucose 126 H (74-99) mg/dL POC Glucose (mg/dL) 164 H 137 H (75-99) mg/dL 01/21/19 01/21/19 01/21/19 Range/Units 07:03 07:10 11:18 RBC 3.64 L (4.30-5.90) m/uL Hgb 10.5 L (13.0-17.5) gm/dL Hct 31.6 L (39.0-53.0) % BUN (9-20) mg/dL Glucose (74-99) mg/dL POC Glucose (mg/dL) 142 H 134 H (75-99) mg/dL Microbiology - Last 24 Hours (Table) 01/15/19 16:15 Blood Culture - Preliminary Blood No Growth after 120 hours Assessment and Plan Assessment: - osteomyelitis of the left calcaneus - CHF exacerbation - diabetes mellitus - Hyperlipidemia - Hypertension - COPD - CAD Plan 01/18/2019 - continue antibiotics as per ID recommendations - Anticipate antibiotics for longer duration of times as the patient having vasculitis of the calcaneus - We'll decrease Lasix from 80 twice a day to 40 twice a day - cardiology consulted awaiting recommendations - We'll monitor labs - Follow the patient 01/19/2019 - Continue Lasix infusion as per cardiology recommendations - Continue antibiotics - Continue aggressive medical care - We'll follow up on the patient 01/20/2019 - Continue Lasix infusion - Continue antibiotics as per infectious disease - Continue rest of the medical care - We'll follow up on the patient 01/21/2019 - Patient will be getting a debridement and deep culture of the left heel by vascular surgery - We'll continue antibiotics. - Continue Lasix infusion as per cardiology recommendations. We'll monitor his lites and his kidney functions - Daily I's and O's and weight - We'll continue to monitor the patient
[2019-01-21] MEDS: metFORMIN 500 MG TAB PO SCH ×2 (15:17→16:42)
[2019-01-21 16:39] LABS: Glucose,Whole Blood 171 mg/dL (75-99)
[2019-01-21] MEDS: SILVER sulfADIAZINE Cream 400 GM 1 APPLIC APPLIC TOPICAL SCH (16:42)
[2019-01-21] MEDS: ATORVASTATIN 80 MG TAB PO SCH (16:42)
[2019-01-21] MEDS: LISINOPRIL 2.5 MG TAB PO SCH (16:42)
[2019-01-21] MEDS: METOPROLOL TARTRATE 12.5 MG TAB PO SCH ×2 (16:42→22:17)
[2019-01-21] MEDS: SERTRALINE 50 MG TAB PO SCH (16:43)
[2019-01-21] MEDS ORDERED: VANCOMYCIN TROUGH DUE 1 EACH MISC MISCELLANE ONE (19:00)
[2019-01-21 20:01] LABS: Glucose,Whole Blood 125 mg/dL (75-99)
--- NOTE | 2019-01-21 21:16 | OP ---
OPERATIVE REPORT PREOP: Infected eschar, left heel. Measurement is 5 x 5 cm PROCEDURE PERFORMED: Excision of the eschar down to subcutaneous tissue of the left heel with deep culture taken. DESCRIPTION OF PROCEDURE: The patient was brought to the operating room. Under ankle block and IV sedation, the left foot was prepped and drapes applied in the usual sterile manner. A knife was used to make incision around the scar, deepened through skin, fat, and subcu tissue. Infected eschar was removed in total and deep tissue was sent for culture and sensitivity. There was some bleeding noted, which was electrocoagulated. Bleeding was controlled and the wound was irrigated with hydrogen peroxide and saline. Pressure dressing applied. Patient was transferred to the recovery room. PLAN: Application of the Santyl cream daily. MMODL / IJN: [id number] /
[2019-01-21] MEDS: MIRTAZAPINE 15 MG TAB PO SCH (22:17)
[2019-01-21] MEDS: NICOTINE 7MG/24HR PATCH TRANSDERM SCH (22:18)
--- NOTE | 2019-01-21 23:13 | P.PN ---
Subjective Progress Note Date: 01/20/19 Principal diagnosis: Left heel infected wound Patient is a 74-year-old male presenting to the ER with a nonhealing wound at the left heel area. The patient has for a couple of weeks to months with no clear history of any trauma patient has been evaluated by Dr. Richards in both scan has been done that was suspicious for osteomyelitis involving the calcaneus patient did have a local wound cultures obtained which did grow Klebsiella, E. coli and staph aureus On today's evaluation that is 01/20/2019, patient denies fever or any chills denies having any chest pain shortness of cough no abdominal pain. The patient denies worsening pain to his left heel area and did have slight drainage minimal foul-smelling. Objective - Vital Signs Vital signs: Vital Signs Temp 98.3 F 01/20/19 12:02 Pulse 60 01/20/19 12:02 Resp 18 01/20/19 12:02 BP 102/59 01/20/19 12:02 Pulse Ox 98 01/20/19 12:02 Intake & Output 01/19/19 01/20/19 01/20/19 18:59 06:59 18:59 Intake Total 2030 620 Output Total 600 2420 Balance 1430 -1800 Weight 118 kg Intake: Intake, IV Titration 140 Amount Furosemide 100 mg In 140 Sodium Chloride 0.9% 90 ml @ 10 MG/HR 10 mls/hr IV .Q10H [facility] Rx#: [id number] Oral 2030 480 Output: Urine 600 2420 Other: Voiding Method Urinal Urinal # Voids 3 - Exam GENERAL DESCRIPTION:[ Patient is awake and alert in no distress] HEENT: [Oral mucosa is dry and no pharyngeal erythema] EYES : [No pallor or scleral icterus] RESPIRATORY SYSTEM: [Unlabored breathing clear to auscultation] CARDIA VASCULAR SYSTEM: [S1-S2 regular rate and rhythm no murmur] GI: [Abdominal soft there's no tenderness no organomegaly] EXTREMITIES: [Left heel with necrotic black eschar with some surrounding swelling redness and minimal fluctuation and foul-smelling = - Labs CBC & Chem 7: 01/21/19 07:03 01/21/19 07:03 Labs: Abnormal Lab Results - Last 24 Hours (Table) 01/19/19 01/20/19 01/20/19 Range/Units 19:28 07:05 07:28 RBC (4.30-5.90) m/uL Hgb (13.0-17.5) gm/dL Hct (39.0-53.0) % BUN 25 H (9-20) mg/dL Glucose 116 H (74-99) mg/dL POC Glucose (mg/dL) 146 H 138 H (75-99) mg/dL 01/20/19 01/20/19 01/20/19 Range/Units 07:28 11:19 16:25 RBC 3.65 L (4.30-5.90) m/uL Hgb 10.3 L (13.0-17.5) gm/dL Hct 32.3 L (39.0-53.0) % BUN (9-20) mg/dL Glucose (74-99) mg/dL POC Glucose (mg/dL) 129 H 164 H (75-99) mg/dL Microbiology - Last 24 Hours (Table) 01/16/19 13:06 Gram Stain - Final Foot - Left Wound Culture - Final Klebsiella pneumoniae Enterococcus faecalis Staphylococcus aureus 01/15/19 16:15 Blood Culture - Preliminary Blood No Growth after 96 hours Assessment and Plan Assessment: 1-patient with left heel wound in this patient who did have necrotic left heel wound with some surrounding swelling redness and the 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 coli and MSSA Plan: 1-patient be continued on Invanz 1 g IV piggyback daily 2-discontinue the vancomycin 3-await surgical debridement and deep cultures 4-PICC line for outpatient IV antibiotic therapy Time with Patient: Less than 30
--- NOTE | 2019-01-21 23:18 | P.PN ---
Subjective Progress Note Date: 01/21/19 Principal diagnosis: Left heel infected wound Patient is a 74-year-old male presenting to the ER with a nonhealing wound at the left heel area. The patient has for a couple of weeks to months with no clear history of any trauma patient has been evaluated by Dr. Richards in both scan has been done that was suspicious for osteomyelitis involving the calcaneus patient did have a local wound cultures obtained which did grow Klebsiella, E. coli and staph aureus. Patient was taken to the OR 7 10/20/2018 and is status post debridement of the escher left heel down to the subcutaneous level with apparent no evidence of deep infection of the wound On today's evaluation that is 01/21/2019, patient remains to be afebrile, the patient denies chest pain shortness of cough no abdominal pain. The patient denies worsening pain to his left heel area and did have slight drainage minimal foul-smelling. Objective - Vital Signs Vital signs: Vital Signs Temp 97.4 F L 01/21/19 13:56 Pulse 64 01/21/19 14:26 Resp 16 01/21/19 14:26 BP 107/58 01/21/19 14:26 Pulse Ox 95 01/21/19 14:26 Intake & Output 01/20/19 01/21/19 01/21/19 18:59 06:59 18:59 Intake Total 1060 2046.833 100 Output Total 400 2725 10 Balance 660 -678.167 90 Weight 118.2 kg Intake: IV 100 100 Furosemide 100 mg In 100 Sodium Chloride 0.9% 90 ml @ 10 MG/HR 10 mls/hr IV .Q10H [facility] Rx#: [id number] Intake, IV Titration 100 636.833 Amount Ertapenem 1 gm In Sodium 50 Chloride 0.9% 50 ml @ 100 mls/hr IVPB DAILY [facility] Rx #:[id number] Furosemide 100 mg In 100 86.833 Sodium Chloride 0.9% 90 ml @ 10 MG/HR 10 mls/hr IV .Q10H [facility] Rx#: [id number] Vancomycin 2,000 mg In 500 Sodium Chloride 0.9% 500 ml 500 ml @ 167 mls/hr IVPB Q16H [facility] Rx#: [id number] Oral 960 1310 Output: Urine 400 2725 Estimated Blood Loss 10 Other: Voiding Method Urinal Urinal # Voids 3 - Exam GENERAL DESCRIPTION:[ Patient is awake and alert in no distress] HEENT: [Oral mucosa is dry and no pharyngeal erythema] EYES : [No pallor or scleral icterus] RESPIRATORY SYSTEM: [Unlabored breathing clear to auscultation] CARDIA VASCULAR SYSTEM: [S1-S2 regular rate and rhythm no murmur] GI: [Abdominal soft there's no tenderness no organomegaly] EXTREMITIES: [Left heel wound is currently dressed up post surgery with no evidence of any drainage - Labs CBC & Chem 7: 01/21/19 07:03 01/21/19 07:03 Labs: Abnormal Lab Results - Last 24 Hours (Table) 01/20/19 01/20/19 01/21/19 Range/Units 16:25 19:51 07:03 RBC (4.30-5.90) m/uL Hgb (13.0-17.5) gm/dL Hct (39.0-53.0) % BUN 27 H (9-20) mg/dL Glucose 126 H (74-99) mg/dL POC Glucose (mg/dL) 164 H 137 H (75-99) mg/dL 01/21/19 01/21/19 01/21/19 Range/Units 07:03 07:10 11:18 RBC 3.64 L (4.30-5.90) m/uL Hgb 10.5 L (13.0-17.5) gm/dL Hct 31.6 L (39.0-53.0) % BUN (9-20) mg/dL Glucose (74-99) mg/dL POC Glucose (mg/dL) 142 H 134 H (75-99) mg/dL Microbiology - Last 24 Hours (Table) 01/15/19 16:15 Blood Culture - Preliminary Blood No Growth after 120 hours Assessment and Plan Assessment: 1-patient with left heel wound in this patient who did have necrotic left heel wound with some surrounding swelling redness and the 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 coli and MSSA , status post OR debridement of this wound Plan: 1-patient be continued on Invanz 1 g IV piggyback daily 2-PICC line for outpatient IV antibiotic therapy Time with Patient: Less than 30
[2019-01-22] MEDS: FUROSEMIDE 100 MG in SODIUM CHLORIDE 0.9% 90 ML IV SCH ×3 (01:58→12:34)
[2019-01-22] MEDS: HYDROcodone/APAP 7.5-325MG 1 EACH TAB PO PRN ×2 (03:48→16:35)
[2019-01-22 06:56] LABS: Glucose,Whole Blood 168 mg/dL (75-99)
[2019-01-22] MEDS: ERTAPENEM 1 GM in SODIUM CHLORIDE 0.9% 50 ML IVPB SCH (08:08)
[2019-01-22] MEDS: METOPROLOL TARTRATE 12.5 MG TAB PO SCH ×2 (08:11→21:13)
[2019-01-22] MEDS: LISINOPRIL 2.5 MG TAB PO SCH (08:11)
[2019-01-22] MEDS: metFORMIN 500 MG TAB PO SCH ×2 (08:11→17:34)
[2019-01-22] MEDS: INSULIN ASPART (NovoLOG) 100 UNIT/ML VIAL SQ SCH ×4 (08:11→21:16)
[2019-01-22] MEDS: SPIRONOLACTONE 25 MG TAB PO SCH ×2 (08:11→21:13)
[2019-01-22] MEDS: ASPIRIN 81 MG PO SCH (08:11)
[2019-01-22] MEDS: ATORVASTATIN 80 MG TAB PO SCH (08:11)
[2019-01-22] MEDS: FAMOTIDINE 20 MG TAB PO SCH ×2 (08:11→21:13)
[2019-01-22] MEDS: MULTIVITAMINS, THERA 1 EACH TAB PO SCH (08:11)
[2019-01-22] MEDS: COLLAGENASE 250 UNIT/GM OINTMENT 30 GM TUBE TOPICAL SCH (08:12)
[2019-01-22] MEDS: SERTRALINE 50 MG TAB PO SCH (08:12)
[2019-01-22] MEDS: SILVER sulfADIAZINE Cream 400 GM 1 APPLIC APPLIC TOPICAL SCH (08:12)
[2019-01-22] MEDS: BUDESONIDE 1 MG/2 ML NEBU INHALATION SCH ×2 (09:43→20:51)
[2019-01-22 10:57] LABS: HCT 30.5 % (39.0-53.0); HGB 10.2 gm/dL (13.0-17.5); MCH 28.8 pg (25.0-35.0); MCHC 33.3 g/dL (31.0-37.0); MCV 86.5 fL (80.0-100.0); Mean Platelet Volume 8.3; Platelet Count 208 k/uL (150-450); RBC 3.53 m/uL (4.30-5.90); RDW 14.5 % (11.5-15.5); WBC 7.3 k/uL (3.8-10.6)
[2019-01-22 11:06] LABS: Calcium 9.1 mg/dL (8.4-10.2); Potassium 4.2 mmol/L (3.5-5.1)
[2019-01-22 11:36] LABS: Glucose,Whole Blood 188 mg/dL (75-99)
[2019-01-22] MEDS ORDERED: LIDOCAINE 1% INJ 10MG/ML (20 ML MDV) SQ ONE (13:40)
[2019-01-22 14:22] VITALS: BMI 34.7
--- NOTE | 2019-01-22 14:23 | IR ---
PICC LINE PLACEMENT: HISTORY: Infection requiring long-term antibiotic therapy PROCEDURE: Ultrasound and fluoroscopic guidance of PICC line placement. COMPLICATIONS: None ANESTHESIA: 1. 1% Lidocaine locally. FINDINGS/TECHNIQUE: The procedure was explained to the patient. The risks, complications, benefits and alternatives were discussed and any questions were answered. Informed consent was obtained. The patient was placed supine on the fluoroscopic table and prepped and draped in the usual sterile fash ion. Utilizing a 21 gauge needle and sonographic and fluoroscopic guidance, access in the left basi lic vein was achieved and there is placement of a 0.018 guidewire. The vein is patent. A 4-F sheath was placed over the guidewire. The guidewire and dilator were removed and a 4-F. PICC line was plac ed through the sheath with the tip at the level of the SVC. The sheath was removed, the catheter was flushed and sutured into position. The patient was stable throughout the procedure and remained sta ble upon discharge from the Department of Radiology. The vein puncture was patent under ultrasound. A rubi scale image was obtained to document patency of the vein punctured. All elements of the maximal barrier technique were utilized. FLUOROSCOPY TIME: 0.3 minutes and one image submitted IMPRESSION: Successful PICC line placement under ultrasound and fluoroscopic guidance.
[2019-01-22 16:49] LABS: Glucose,Whole Blood 193 mg/dL (75-99)
--- NOTE | 2019-01-22 16:54 | P.PN ---
Subjective 69-year-old gentleman is admitted for infection of thelower extremity. Initially started on antibiotics. Infectious disease was consulted. They had a bone scan done which showed osteomyelitis of the left calcaneus. 01/18/2019 Patient the time examination does not complain of any fevers or chills, no chest pain racing heart, no cough no shortness of breath. 01/19/2019 Patient started on Lasix infusion Swelling better Doesn't feel short of breath no cough, no chest pain racing heart 01/20/2019 patient still on Lasix drip says his swelling is better no chest pain or racing heart No cough no shortness of breath 01/21/2019 Patient is supposed to be going for debridement today Still on Lasix drip Shortness of breath better No chest pain racing heart 01/22/2019 Patient had debridement done yesterday Patient supposed to go for PICC line placement for IV antibiotics Patient complaining of no chest pain Patient shortness of breath is better Objective - Vital Signs Vital signs: Vital Signs Temp 98.9 F 01/22/19 12:03 Pulse 66 01/22/19 12:03 Resp 17 01/22/19 16:04 BP 95/56 01/22/19 12:03 Pulse Ox 94 L 01/22/19 12:03 Intake & Output 01/21/19 01/22/19 01/22/19 18:59 06:59 18:59 Intake Total 200 500 Output Total 510 450 400 Balance -310 -450 100 Weight 112.8 kg Intake: IV 100 Intake, IV Titration 100 100 Amount Furosemide 100 mg In 100 100 Sodium Chloride 0.9% 90 ml @ 10 MG/HR 10 mls/hr IV .Q10H [facility] Rx#: [id number] Oral 400 Output: Urine 500 450 400 Estimated Blood Loss 10 Other: Voiding Method Urinal Bedside Commode Bedside Commode Urinal Urinal # Voids 3 3 - Exam On exam, alert and oriented x3. HEENT: Conjunctivae normal. eyes normal. NECK: No JVD. No thyroid enlargement. No LNs CARDIOVASCULAR: S1, S2 muffled. No murmur RESPIRATION: Breath sounds diminished in the bases. No rhonchi or crackles. No bronchial breathing. ABDOMEN: Soft, nontender . No guarding. no masses palpable. No ascites, No hepatosplenomegaly.Bowel sounds heard. LEGS: the bilateral lower extremities are wrapped in dressing NERVOUS SYSTEM: Cranial N 2-12 grossly normal. Moves all 4 limbs. No focal deficits. No sensory deficit. No signs of cerebellar dysfucntion. Skin: no ulcer no rash - Labs CBC & Chem 7: 01/22/19 09:54 01/22/19 09:54 Labs: Abnormal Lab Results - Last 24 Hours (Table) 01/21/19 01/22/19 01/22/19 Range/Units 19:59 06:54 09:54 RBC 3.53 L (4.30-5.90) m/uL Hgb 10.2 L (13.0-17.5) gm/dL Hct 30.5 L (39.0-53.0) % Carbon Dioxide (22-30) mmol/L BUN (9-20) mg/dL Glucose (74-99) mg/dL POC Glucose (mg/dL) 125 H 168 H (75-99) mg/dL 01/22/19 01/22/19 Range/Units 09:54 11:34 RBC (4.30-5.90) m/uL Hgb (13.0-17.5) gm/dL Hct (39.0-53.0) % Carbon Dioxide 34 H (22-30) mmol/L BUN 29 H (9-20) mg/dL Glucose 124 H (74-99) mg/dL POC Glucose (mg/dL) 188 H (75-99) mg/dL Microbiology - Last 24 Hours (Table) 01/21/19 13:50 Anaerobic Culture - Preliminary Heel - Left 01/21/19 13:50 Gram Stain - Preliminary Heel - Left Tissue Culture - Preliminary 01/15/19 16:15 Blood Culture - Final Blood No Growth after 144 hours 01/21/19 13:50 Fungal Culture - Preliminary Heel - Left Assessment and Plan Assessment: - osteomyelitis of the left calcaneus - CHF exacerbation - diabetes mellitus - Hyperlipidemia - Hypertension - COPD - CAD Plan 01/18/2019 - continue antibiotics as per ID recommendations - Anticipate antibiotics for longer duration of times as the patient having vasculitis of the calcaneus - We'll decrease Lasix from 80 twice a day to 40 twice a day - cardiology consulted awaiting recommendations - We'll monitor labs - Follow the patient 01/19/2019 - Continue Lasix infusion as per cardiology recommendations - Continue antibiotics - Continue aggressive medical care - We'll follow up on the patient 01/20/2019 - Continue Lasix infusion - Continue antibiotics as per infectious disease - Continue rest of the medical care - We'll follow up on the patient 01/21/2019 - Patient will be getting a debridement and deep culture of the left heel by vascular surgery - We'll continue antibiotics. - Continue Lasix infusion as per cardiology recommendations. We'll monitor his lites and his kidney functions - Daily I's and O's and weight - We'll continue to monitor the patient 01/22/2019 - Continue Lasix drip as per cardio recommendation. Patient lost a significant amount of weight. We will wait for further recommendations from cardiology regarding the Lasix drip - Continue antibiotics as per ID recommendations. Patient to get a PICC line for outpatient antibiotic therapy continuation - Continue rest of the medical care - We'll follow up on the patient
--- NOTE | 2019-01-22 18:28 | PN ---
PROGRESS NOTE This gentleman had an infected left heel wound with eschar formation. The patient went for a debridement of the left heel yesterday. On examination today, minimal drainage is noted. We will continue with local wound care using Santyl cream and continue with IV antibiotic as per Infectious Disease. MMODL / IJN: [id number] /
[2019-01-22 20:25] LABS: Glucose,Whole Blood 106 mg/dL (75-99)
[2019-01-22] MEDS: IPRATROPIUM-ALBUTEROL 3 ML NEB INHALATION PRN (20:51)
[2019-01-22] MEDS: FUROSEMIDE 10 MG/ML 10 ML VIAL IV SCH (21:13)
[2019-01-22] MEDS: NICOTINE 7MG/24HR PATCH TRANSDERM SCH (21:14)
[2019-01-22] MEDS: MIRTAZAPINE 15 MG TAB PO SCH (22:05)
[2019-01-23 01:02] LABS: Albumin 3.1 g/dL (3.5-5.0); Calcium 8.6 mg/dL (8.4-10.2); Potassium 4.3 mmol/L (3.5-5.1); Total Bilirubin 0.7 mg/dL (0.2-1.3); Total Protein 6.1 g/dL (6.3-8.2)
[2019-01-23] MEDS: BUDESONIDE 1 MG/2 ML NEBU INHALATION SCH ×2 (07:19→19:29)
[2019-01-23] MEDS: NICOTINE 7MG/24HR PATCH TRANSDERM SCH ×3 (07:20→20:56)
[2019-01-23] MEDS: INSULIN ASPART (NovoLOG) 100 UNIT/ML VIAL SQ SCH ×4 (07:49→21:45)
[2019-01-23 07:56] LABS: HCT 30.8 % (39.0-53.0); HGB 9.9 gm/dL (13.0-17.5); MCH 28.2 pg (25.0-35.0); MCHC 32.3 g/dL (31.0-37.0); MCV 87.4 fL (80.0-100.0); Mean Platelet Volume 8.5; Platelet Count 196 k/uL (150-450); RBC 3.52 m/uL (4.30-5.90); WBC 7.1 k/uL (3.8-10.6)
[2019-01-23 08:06] LABS: Calcium 8.9 mg/dL (8.4-10.2); Potassium 4.4 mmol/L (3.5-5.1)
[2019-01-23] MEDS: FUROSEMIDE 10 MG/ML 10 ML VIAL IV SCH ×2 (09:05→20:39)
[2019-01-23] MEDS: ATORVASTATIN 80 MG TAB PO SCH (09:06)
[2019-01-23] MEDS: METOPROLOL TARTRATE 12.5 MG TAB PO SCH ×2 (09:06→20:38)
[2019-01-23] MEDS: ERTAPENEM 1 GM in SODIUM CHLORIDE 0.9% 50 ML IVPB SCH (09:06)
[2019-01-23] MEDS: metFORMIN 500 MG TAB PO SCH ×2 (09:06→17:41)
[2019-01-23] MEDS: ASPIRIN 81 MG PO SCH (09:06)
[2019-01-23] MEDS: MULTIVITAMINS, THERA 1 EACH TAB PO SCH (09:07)
[2019-01-23] MEDS: LISINOPRIL 2.5 MG TAB PO SCH (09:07)
[2019-01-23] MEDS: FAMOTIDINE 20 MG TAB PO SCH ×2 (09:07→20:38)
[2019-01-23] MEDS: SERTRALINE 50 MG TAB PO SCH (09:08)
[2019-01-23] MEDS: SPIRONOLACTONE 25 MG TAB PO SCH ×2 (09:08→20:38)
[2019-01-23] MEDS ORDERED: BISACODYL 5 MG TABLET.DR PO PRN (09:12)
[2019-01-23] MEDS: COLLAGENASE 250 UNIT/GM OINTMENT 30 GM TUBE TOPICAL SCH (09:32)
[2019-01-23] MEDS: SILVER sulfADIAZINE Cream 400 GM 1 APPLIC APPLIC TOPICAL SCH (09:33)
[2019-01-23 10:51] LABS: Glucose,Whole Blood 185 mg/dL (75-99)
[2019-01-23] MEDS: POLYETHYLENE GLYCOL 3350 17 GM POWD.PACK PO SCH (12:59)
--- NOTE | 2019-01-23 14:13 | P.PN ---
Subjective 69-year-old gentleman is admitted for infection of thelower extremity. Initially started on antibiotics. Infectious disease was consulted. They had a bone scan done which showed osteomyelitis of the left calcaneus. 01/18/2019 Patient the time examination does not complain of any fevers or chills, no chest pain racing heart, no cough no shortness of breath. 01/19/2019 Patient started on Lasix infusion Swelling better Doesn't feel short of breath no cough, no chest pain racing heart 01/20/2019 patient still on Lasix drip says his swelling is better no chest pain or racing heart No cough no shortness of breath 01/21/2019 Patient is supposed to be going for debridement today Still on Lasix drip Shortness of breath better No chest pain racing heart 01/22/2019 Patient had debridement done yesterday Patient supposed to go for PICC line placement for IV antibiotics Patient complaining of no chest pain Patient shortness of breath is better 01/23/2019 Patient continues to feel better He does not complain of any chest pain or racing heart No cough no shortness of breath No abdominal pain, no nausea and vomiting, or no diarrhea no constipation Objective - Vital Signs Vital signs: Vital Signs Temp 97.9 F 01/23/19 12:25 Pulse 68 01/23/19 12:25 Resp 16 01/23/19 12:25 BP 103/59 01/23/19 12:25 Pulse Ox 95 01/23/19 12:25 Intake & Output 01/22/19 01/23/19 01/23/19 18:59 06:59 18:59 Intake Total 549 Output Total 400 225 Balance 149 -225 Weight 112.8 kg Intake: Intake, IV Titration 149 Amount Furosemide 100 mg In 149 Sodium Chloride 0.9% 90 ml @ 10 MG/HR 10 mls/hr IV .Q10H [facility] Rx#: [id number] Oral 400 Output: Urine 400 225 Other: Voiding Method Bedside Commode Bedside Commode Urinal Urinal # Voids 3 - Exam On exam, alert and oriented x3. HEENT: Conjunctivae normal. eyes normal. NECK: No JVD. No thyroid enlargement. No LNs CARDIOVASCULAR: S1, S2 muffled. No murmur RESPIRATION: Breath sounds diminished in the bases. No rhonchi or crackles. No bronchial breathing. ABDOMEN: Soft, nontender . No guarding. no masses palpable. No ascites, No hepatosplenomegaly.Bowel sounds heard. LEGS: the bilateral lower extremities are wrapped in dressing NERVOUS SYSTEM: Cranial N 2-12 grossly normal. Moves all 4 limbs. No focal deficits. No sensory deficit. No signs of cerebellar dysfucntion. Skin: no ulcer no rash - Labs CBC & Chem 7: 01/23/19 07:30 01/23/19 07:30 Labs: Abnormal Lab Results - Last 24 Hours (Table) 01/22/19 01/22/19 01/23/19 Range/Units 16:38 20:21 00:10 RBC (4.30-5.90) m/uL Hgb (13.0-17.5) gm/dL Hct (39.0-53.0) % Carbon Dioxide 31 H (22-30) mmol/L BUN 33 H (9-20) mg/dL Creatinine 1.31 H (0.66-1.25) mg/dL Glucose 116 H (74-99) mg/dL POC Glucose (mg/dL) 193 H 106 H (75-99) mg/dL Total Protein 6.1 L (6.3-8.2) g/dL Albumin 3.1 L (3.5-5.0) g/dL 01/23/19 01/23/19 01/23/19 Range/Units 07:30 07:30 10:50 RBC 3.52 L (4.30-5.90) m/uL Hgb 9.9 L (13.0-17.5) gm/dL Hct 30.8 L (39.0-53.0) % Carbon Dioxide 33 H (22-30) mmol/L BUN 34 H (9-20) mg/dL Creatinine 1.36 H (0.66-1.25) mg/dL Glucose 113 H (74-99) mg/dL POC Glucose (mg/dL) 185 H (75-99) mg/dL Total Protein (6.3-8.2) g/dL Albumin (3.5-5.0) g/dL Microbiology - Last 24 Hours (Table) 01/21/19 13:50 Anaerobic Culture - Preliminary Heel - Left 01/21/19 13:50 Gram Stain - Preliminary Heel - Left Tissue Culture - Preliminary Presumptive Staph aureus Group D Enterococcus Coagulase Negative Staph Diphtheroid species Assessment and Plan Assessment: - osteomyelitis of the left calcaneus - CHF exacerbation - diabetes mellitus - Hyperlipidemia - Hypertension - COPD - CAD Plan 01/18/2019 - continue antibiotics as per ID recommendations - Anticipate antibiotics for longer duration of times as the patient having vasculitis of the calcaneus - We'll decrease Lasix from 80 twice a day to 40 twice a day - cardiology consulted awaiting recommendations - We'll monitor labs - Follow the patient 01/19/2019 - Continue Lasix infusion as per cardiology recommendations - Continue antibiotics - Continue aggressive medical care - We'll follow up on the patient 01/20/2019 - Continue Lasix infusion - Continue antibiotics as per infectious disease - Continue rest of the medical care - We'll follow up on the patient 01/21/2019 - Patient will be getting a debridement and deep culture of the left heel by vascular surgery - We'll continue antibiotics. - Continue Lasix infusion as per cardiology recommendations. We'll monitor his lites and his kidney functions - Daily I's and O's and weight - We'll continue to monitor the patient 01/22/2019 - Continue Lasix drip as per cardio recommendation. Patient lost a significant amount of weight. We will wait for further recommendations from cardiology regarding the Lasix drip - Continue antibiotics as per ID recommendations. Patient to get a PICC line for outpatient antibiotic therapy continuation - Continue rest of the medical care - We'll follow up on the patient 01/23/2019 - Lasix drip DC'd and patient was on 80 mg of IV Lasix twice a day - We will monitor patient's kidney functions - Continue antibiotics as per ID recommendations - Continue aggressive medical care, daily I's and O's and daily weight - We'll continue to monitor the patient
[2019-01-23 17:16] LABS: Glucose,Whole Blood 132 mg/dL (75-99)
[2019-01-23] MEDS: MIRTAZAPINE 15 MG TAB PO SCH (20:38)
[2019-01-23 21:14] LABS: Glucose,Whole Blood 126 mg/dL (75-99)
--- NOTE | 2019-01-23 23:21 | P.PN ---
Subjective Progress Note Date: 01/22/19 Principal diagnosis: Left heel infected wound Patient is a 74-year-old male presenting to the ER with a nonhealing wound at the left heel area. The patient has for a couple of weeks to months with no clear history of any trauma patient has been evaluated by Dr. Richards in both scan has been done that was suspicious for osteomyelitis involving the calcaneus patient did have a local wound cultures obtained which did grow Klebsiella, E. coli and staph aureus. Patient was taken to the OR 7 10/20/2018 and is status post debridement of the escher left heel down to the subcutaneous level On today's evaluation that is 01/22/2019, patient denies any fever or chills, the patient denies chest pain shortness of cough no abdominal pain. The patient currently denies worsening pain to his left heel area and no diarrhea with antibiotic therapy Objective - Vital Signs Vital signs: Vital Signs Temp 98.9 F 01/22/19 12:03 Pulse 66 01/22/19 12:03 Resp 17 01/22/19 12:03 BP 95/56 01/22/19 12:03 Pulse Ox 94 L 01/22/19 12:03 Intake & Output 01/21/19 01/22/19 01/22/19 18:59 06:59 18:59 Intake Total 200 500 Output Total 510 450 400 Balance -310 -450 100 Weight 112.8 kg Intake: IV 100 Intake, IV Titration 100 100 Amount Furosemide 100 mg In 100 100 Sodium Chloride 0.9% 90 ml @ 10 MG/HR 10 mls/hr IV .Q10H [facility] Rx#: [id number] Oral 400 Output: Urine 500 450 400 Estimated Blood Loss 10 Other: Voiding Method Urinal Bedside Commode Bedside Commode Urinal Urinal # Voids 3 3 - Exam GENERAL DESCRIPTION:[ Patient is awake and alert in no distress] HEENT: [Oral mucosa is dry and no pharyngeal erythema] EYES : [No pallor or scleral icterus] RESPIRATORY SYSTEM: [Unlabored breathing clear to auscultation] CARDIA VASCULAR SYSTEM: [S1-S2 regular rate and rhythm no murmur] GI: [Abdominal soft there's no tenderness no organomegaly] EXTREMITIES: [Left heel wound is currently dressed up post surgery with no evidence of any drainage - Labs CBC & Chem 7: 01/23/19 07:30 01/23/19 07:30 Labs: Abnormal Lab Results - Last 24 Hours (Table) 01/21/19 01/21/19 01/22/19 Range/Units 16:37 19:59 06:54 RBC (4.30-5.90) m/uL Hgb (13.0-17.5) gm/dL Hct (39.0-53.0) % Carbon Dioxide (22-30) mmol/L BUN (9-20) mg/dL Glucose (74-99) mg/dL POC Glucose (mg/dL) 171 H 125 H 168 H (75-99) mg/dL 01/22/19 01/22/19 01/22/19 Range/Units 09:54 09:54 11:34 RBC 3.53 L (4.30-5.90) m/uL Hgb 10.2 L (13.0-17.5) gm/dL Hct 30.5 L (39.0-53.0) % Carbon Dioxide 34 H (22-30) mmol/L BUN 29 H (9-20) mg/dL Glucose 124 H (74-99) mg/dL POC Glucose (mg/dL) 188 H (75-99) mg/dL Microbiology - Last 24 Hours (Table) 01/21/19 13:50 Anaerobic Culture - Preliminary Heel - Left 01/21/19 13:50 Gram Stain - Preliminary Heel - Left Tissue Culture - Preliminary 01/15/19 16:15 Blood Culture - Final Blood No Growth after 144 hours 01/21/19 13:50 Fungal Culture - Preliminary Heel - Left Assessment and Plan Assessment: 1-patient with left heel wound in this patient who did have necrotic left heel wound with some surrounding swelling redness and the 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 coli and MSSA , status post OR debridement of this wound Plan: 1-patient currently on Invanz 1 g IV piggyback daily that'll be continued to finish a 6 week course of therapy 2-PICC has been placed today for outpatient antibiotic therapy Time with Patient: Less than 30
--- NOTE | 2019-01-23 23:23 | P.PN ---
Subjective Progress Note Date: 01/23/19 Principal diagnosis: Left heel infected wound/ Osteomyelitis Patient is a 74-year-old male presenting to the ER with a nonhealing wound at the left heel area. The patient has for a couple of weeks to months with no clear history of any trauma patient has been evaluated by Dr. Richards in both scan has been done that was suspicious for osteomyelitis involving the calcaneus patient did have a local wound cultures obtained which did grow Klebsiella, E. coli and staph aureus. Patient was taken to the OR 7 10/20/2018 and is status post debridement of the escher left heel down to the subcutaneous level , the patient did get a PICC line on 01/22/2019 On today's evaluation that is 01/23/2019, patient remains to be afebrile, the patient denies chest pain shortness of cough , the patient denies any nausea no vomiting no abdominal pain no diarrhea and denies having worsening pain to the left heel wound area Objective - Vital Signs Vital signs: Vital Signs Temp 97.9 F 01/23/19 12:25 Pulse 68 01/23/19 12:25 Resp 16 01/23/19 12:25 BP 103/59 01/23/19 12:25 Pulse Ox 95 01/23/19 12:25 Intake & Output 01/22/19 01/23/19 01/23/19 18:59 06:59 18:59 Intake Total 549 Output Total 400 400 Balance 149 -400 Weight 112.8 kg Intake: Intake, IV Titration 149 Amount Furosemide 100 mg In 149 Sodium Chloride 0.9% 90 ml @ 10 MG/HR 10 mls/hr IV .Q10H [facility] Rx#: [id number] Oral 400 Output: Urine 400 400 Other: Voiding Method Bedside Commode Bedside Commode Bedside Commode Urinal Urinal Urinal # Voids 3 - Exam GENERAL DESCRIPTION:[ Patient is awake and alert in no distress] HEENT: [Oral mucosa is dry and no pharyngeal erythema] EYES : [No pallor or scleral icterus] RESPIRATORY SYSTEM: [Unlabored breathing clear to auscultation] CARDIA VASCULAR SYSTEM: [S1-S2 regular rate and rhythm no murmur] GI: [Abdominal soft there's no tenderness no organomegaly] EXTREMITIES: [Left heel wound is currently dressed with no evidence of any drainage - Labs CBC & Chem 7: 01/23/19 07:30 01/23/19 07:30 Labs: Abnormal Lab Results - Last 24 Hours (Table) 01/22/19 01/22/19 01/23/19 Range/Units 16:38 20:21 00:10 RBC (4.30-5.90) m/uL Hgb (13.0-17.5) gm/dL Hct (39.0-53.0) % Carbon Dioxide 31 H (22-30) mmol/L BUN 33 H (9-20) mg/dL Creatinine 1.31 H (0.66-1.25) mg/dL Glucose 116 H (74-99) mg/dL POC Glucose (mg/dL) 193 H 106 H (75-99) mg/dL Total Protein 6.1 L (6.3-8.2) g/dL Albumin 3.1 L (3.5-5.0) g/dL 01/23/19 01/23/19 01/23/19 Range/Units 07:30 07:30 10:50 RBC 3.52 L (4.30-5.90) m/uL Hgb 9.9 L (13.0-17.5) gm/dL Hct 30.8 L (39.0-53.0) % Carbon Dioxide 33 H (22-30) mmol/L BUN 34 H (9-20) mg/dL Creatinine 1.36 H (0.66-1.25) mg/dL Glucose 113 H (74-99) mg/dL POC Glucose (mg/dL) 185 H (75-99) mg/dL Total Protein (6.3-8.2) g/dL Albumin (3.5-5.0) g/dL Microbiology - Last 24 Hours (Table) 01/21/19 13:50 Anaerobic Culture - Preliminary Heel - Left 01/21/19 13:50 Gram Stain - Preliminary Heel - Left Tissue Culture - Preliminary Presumptive Staph aureus Group D Enterococcus Coagulase Negative Staph Diphtheroid species Assessment and Plan Assessment: 1-patient with left heel wound in this patient who did have necrotic left heel wound with some surrounding swelling redness and the bone scan has been positive for underlying ostomy myelitis with a wound culture currently growing Klebsiella, enterococcus and MSSA , status post OR debridement of this wound , wound cultures are showing staph aureus enterococcus Plan: 1-patient currently on Invanz 1 g IV piggyback daily that'll be continued to finish a 6 week course of therapy 2-PICC has been placed , patient is currently waiting for placement Time with Patient: Less than 30
[2019-01-24 07:11] LABS: Glucose,Whole Blood 126 mg/dL (75-99)
[2019-01-24] MEDS: BUDESONIDE 1 MG/2 ML NEBU INHALATION SCH ×2 (07:21→18:49)
[2019-01-24] MEDS: INSULIN ASPART (NovoLOG) 100 UNIT/ML VIAL SQ SCH ×4 (07:26→20:37)
[2019-01-24 08:09] LABS: Calcium 8.8 mg/dL (8.4-10.2); Potassium 4.3 mmol/L (3.5-5.1)
--- NOTE | 2019-01-24 08:24 | P.PN ---
Subjective Progress Note Date: 01/23/19 This is a 74-year-old gentleman with history of ischemic heart myopathy, chronic systolic heart failure, coronary artery disease with previous stent placement of the LAD and also PLV branch. The RCA and also AICD implantation was admitted to the hospital with increasing shortness of breath and congestive heart failure. Patient is on IV Lasix and seemed to be diuresing fairly well. Patient lost 15 pounds. He is feeling better. Still has significant edema. We'll continue current management for on the 24 hours. 01/23/2019: This patient. Ischemic cardio myopathy and chronic systolic heart failure admitted to the hospital with severe CHF and peripheral edema. Patient responded well to IV Lasix. Patient was switched to bolus of IV Lasix yesterday. His diuresing fairly well. His edema is clearing. Complaints of being fatigued. No complaints of any chest pain or shortness of breath. His blood pressure is about 110/60. Pulse rate is 68. Lungs appeared to be clear. His BUN/creatinine are creeping up. We'll can discontinue IV Lasix and start him by mouth Lasix 80 mg by mouth twice a day. Continue rest of the medication Objective - Vital Signs Vital signs: Vital Signs Temp 98.3 F 01/24/19 04:05 Pulse 70 01/24/19 07:30 Resp 20 01/24/19 04:05 BP 102/57 01/24/19 04:05 Pulse Ox 97 01/24/19 04:05 Intake & Output 01/23/19 01/24/19 01/24/19 18:59 06:59 18:59 Output Total 400 Balance -400 Output: Urine 400 Other: Voiding Method Bedside Commode Bedside Commode Urinal Urinal - Exam GENERAL EXAM: Patient is alert and oriented and doesn't appear to be in any acute distress HEENT: Normocephalic. Normal reaction of pupils, equal size, normal range of extraocular motion. No erythema or exudates in the throat. NECK: No masses, no nuchal rigidity. CHEST: No chest wall deformity. LUNGS: Bilateral few rales HEART: S1 and S2 normal with no audible mumurs or gallops. Regular rhythm, femorals equal on both sides.. ABDOMEN: No hepatosplenomegaly, normal bowel sounds, no guarding or rigidity. SKIN: No rashes CENTRAL NERVOUS SYSTEM: No focal deficits. EXTREMITIES: Improvement in edema - Labs CBC & Chem 7: 01/23/19 07:30 01/24/19 07:37 Labs: Abnormal Lab Results - Last 24 Hours (Table) 01/23/19 01/23/19 01/23/19 Range/Units 10:50 17:15 21:13 Carbon Dioxide (22-30) mmol/L BUN (9-20) mg/dL Glucose (74-99) mg/dL POC Glucose (mg/dL) 185 H 132 H 126 H (75-99) mg/dL 01/24/19 01/24/19 Range/Units 07:10 07:37 Carbon Dioxide 31 H (22-30) mmol/L BUN 34 H (9-20) mg/dL Glucose 111 H (74-99) mg/dL POC Glucose (mg/dL) 126 H (75-99) mg/dL Microbiology - Last 24 Hours (Table) 01/21/19 13:50 Anaerobic Culture - Preliminary Heel - Left 01/21/19 13:50 Gram Stain - Preliminary Heel - Left Tissue Culture - Preliminary Presumptive Staph aureus Group D Enterococcus Coagulase Negative Staph Diphtheroid species Assessment and Plan (1) CHF (congestive heart failure) Current Visit: Yes Status: Acute Code(s): I50.9 - HEART FAILURE, UNSPECIFIED SNOMED Code(s): 64003141 (2) History of COPD Current Visit: Yes Status: Acute Code(s): Z87.09 - PERSONAL HISTORY OF OTHER DISEASES OF THE RESPIRATORY SYSTEM SNOMED Code(s): 512824473 (3) Bilateral lower extremity edema Current Visit: No Status: Acute Code(s): R60.0 - LOCALIZED EDEMA SNOMED Code(s): 073989450 (4) CAD (coronary artery disease) Current Visit: No Status: Acute Code(s): I25.10 - ATHSCL HEART DISEASE OF [place] CORONARY ARTERY W/O ANG PCTRS SNOMED Code(s): 424417960 (5) CHF exacerbation Current Visit: No Status: Acute Code(s): I50.9 - HEART FAILURE, UNSPECIFIED SNOMED Code(s): 662084282 Plan: Shows improvement in edema. Feels fatigued. No complaints of any chest pain or shortness of breath. We'll discontinue IV Lasix and start patient on by mouth Lasix
[2019-01-24] MEDS: METOPROLOL TARTRATE 12.5 MG TAB PO SCH ×2 (08:45→20:37)
[2019-01-24] MEDS: SPIRONOLACTONE 25 MG TAB PO SCH ×2 (08:45→20:37)
[2019-01-24] MEDS: ASPIRIN 81 MG PO SCH (08:45)
[2019-01-24] MEDS: MULTIVITAMINS, THERA 1 EACH TAB PO SCH (08:45)
[2019-01-24] MEDS: metFORMIN 500 MG TAB PO SCH ×2 (08:45→17:52)
[2019-01-24] MEDS: ATORVASTATIN 80 MG TAB PO SCH (08:45)
[2019-01-24] MEDS: FAMOTIDINE 20 MG TAB PO SCH ×2 (08:45→20:37)
[2019-01-24] MEDS: COLLAGENASE 250 UNIT/GM OINTMENT 30 GM TUBE TOPICAL SCH (08:46)
[2019-01-24] MEDS: ERTAPENEM 1 GM in SODIUM CHLORIDE 0.9% 50 ML IVPB SCH (08:46)
--- NOTE | 2019-01-24 08:46 | P.PN ---
Subjective Progress Note Date: 01/24/19 This is a 74-year-old gentleman with history of ischemic heart myopathy, chronic systolic heart failure, coronary artery disease with previous stent placement of the LAD and also PLV branch. The RCA and also AICD implantation was admitted to the hospital with increasing shortness of breath and congestive heart failure. Patient is on IV Lasix and seemed to be diuresing fairly well. Patient lost 15 pounds. He is feeling better. Still has significant edema. We'll continue current management for on the 24 hours. 01/23/2019: This patient. Ischemic cardio myopathy and chronic systolic heart failure admitted to the hospital with severe CHF and peripheral edema. Patient responded well to IV Lasix. Patient was switched to bolus of IV Lasix yesterday. His diuresing fairly well. His edema is clearing. Complaints of being fatigued. No complaints of any chest pain or shortness of breath. His blood pressure is about 110/60. Pulse rate is 68. Lungs appeared to be clear. His BUN/creatinine are creeping up. We'll can discontinue IV Lasix and start him by mouth Lasix 80 mg by mouth twice a day. Continue rest of the medication. 01/24/2019: The patient appears to be stable. Doesn't appear to be in respiratory distress. Able to sleep flat without any discomfort or shortness of breath. The edema is clearing. Renal function is stable. I'm going to switch from IV Lasix boluses to by mouth Lasix 80 twice a day. Continue rest of medications Objective - Vital Signs Vital signs: Vital Signs Temp 98.3 F 01/24/19 04:05 Pulse 70 01/24/19 07:30 Resp 20 01/24/19 04:05 BP 102/57 01/24/19 04:05 Pulse Ox 97 01/24/19 04:05 Intake & Output 01/23/19 01/24/19 01/24/19 18:59 06:59 18:59 Output Total 400 Balance -400 Output: Urine 400 Other: Voiding Method Bedside Commode Bedside Commode Urinal Urinal - Exam GENERAL EXAM: Patient is alert and oriented and doesn't appear to be in any acute distress HEENT: Normocephalic. Normal reaction of pupils, equal size, normal range of extraocular motion. No erythema or exudates in the throat. NECK: No masses, no nuchal rigidity. CHEST: No chest wall deformity. LUNGS: Bilateral few rales HEART: S1 and S2 normal with no audible mumurs or gallops. Regular rhythm, femorals equal on both sides.. ABDOMEN: No hepatosplenomegaly, normal bowel sounds, no guarding or rigidity. SKIN: No rashes CENTRAL NERVOUS SYSTEM: No focal deficits. EXTREMITIES: Improvement in edema - Labs CBC & Chem 7: 01/23/19 07:30 01/24/19 07:37 Labs: Abnormal Lab Results - Last 24 Hours (Table) 01/23/19 01/23/19 01/23/19 Range/Units 10:50 17:15 21:13 Carbon Dioxide (22-30) mmol/L BUN (9-20) mg/dL Glucose (74-99) mg/dL POC Glucose (mg/dL) 185 H 132 H 126 H (75-99) mg/dL 01/24/19 01/24/19 Range/Units 07:10 07:37 Carbon Dioxide 31 H (22-30) mmol/L BUN 34 H (9-20) mg/dL Glucose 111 H (74-99) mg/dL POC Glucose (mg/dL) 126 H (75-99) mg/dL Microbiology - Last 24 Hours (Table) 01/21/19 13:50 Anaerobic Culture - Preliminary Heel - Left 01/21/19 13:50 Gram Stain - Preliminary Heel - Left Tissue Culture - Preliminary Presumptive Staph aureus Group D Enterococcus Coagulase Negative Staph Diphtheroid species Assessment and Plan (1) CHF (congestive heart failure) Current Visit: Yes Status: Acute Code(s): I50.9 - HEART FAILURE, UNSPECIFIED SNOMED Code(s): 46827376 (2) History of COPD Current Visit: Yes Status: Acute Code(s): Z87.09 - PERSONAL HISTORY OF OTHER DISEASES OF THE RESPIRATORY SYSTEM SNOMED Code(s): 816600177 (3) Bilateral lower extremity edema Current Visit: No Status: Acute Code(s): R60.0 - LOCALIZED EDEMA SNOMED Code(s): 317750192 (4) CAD (coronary artery disease) Current Visit: No Status: Acute Code(s): I25.10 - ATHSCL HEART DISEASE OF [place] CORONARY ARTERY W/O ANG PCTRS SNOMED Code(s): 433845850 (5) CHF exacerbation Current Visit: No Status: Acute Code(s): I50.9 - HEART FAILURE, UNSPECIFIED SNOMED Code(s): 342001855 Plan: Patient wanted him status is improved. Renal functions are stable. Doesn't appear to be in any respiratory distress. Change to by mouth Lasix. Will follow
[2019-01-24] MEDS: LISINOPRIL 2.5 MG TAB PO SCH (08:47)
[2019-01-24] MEDS: POLYETHYLENE GLYCOL 3350 17 GM POWD.PACK PO SCH (08:47)
[2019-01-24] MEDS: SILVER sulfADIAZINE Cream 400 GM 1 APPLIC APPLIC TOPICAL SCH (08:48)
[2019-01-24] MEDS: SERTRALINE 50 MG TAB PO SCH (08:56)
[2019-01-24] MEDS: FUROSEMIDE 80 MG TAB PO SCH ×2 (11:05→17:52)
[2019-01-24 12:27] LABS: Glucose,Whole Blood 115 mg/dL (75-99)
[2019-01-24 17:13] LABS: Glucose,Whole Blood 115 mg/dL (75-99)
[2019-01-24 20:13] LABS: Glucose,Whole Blood 149 mg/dL (75-99)
[2019-01-24] MEDS: MIRTAZAPINE 15 MG TAB PO SCH (20:38)
[2019-01-24] MEDS: NICOTINE 7MG/24HR PATCH TRANSDERM SCH (20:38)
--- NOTE | 2019-01-24 20:40 | P.PN ---
Subjective 69-year-old gentleman is admitted for infection of thelower extremity. Initially started on antibiotics. Infectious disease was consulted. They had a bone scan done which showed osteomyelitis of the left calcaneus. 01/18/2019 Patient the time examination does not complain of any fevers or chills, no chest pain racing heart, no cough no shortness of breath. 01/19/2019 Patient started on Lasix infusion Swelling better Doesn't feel short of breath no cough, no chest pain racing heart 01/20/2019 patient still on Lasix drip says his swelling is better no chest pain or racing heart No cough no shortness of breath 01/21/2019 Patient is supposed to be going for debridement today Still on Lasix drip Shortness of breath better No chest pain racing heart 01/22/2019 Patient had debridement done yesterday Patient supposed to go for PICC line placement for IV antibiotics Patient complaining of no chest pain Patient shortness of breath is better 01/23/2019 Patient continues to feel better He does not complain of any chest pain or racing heart No cough no shortness of breath No abdominal pain, no nausea and vomiting, or no diarrhea no constipation 01/24/2019 Pt says that he is doing better sob better, no cough, no chest pain, no racing heart no abd pain, no nausea, no vomiting Objective - Vital Signs Vital signs: Vital Signs Temp 98.0 F 01/24/19 14:10 Pulse 70 01/24/19 19:01 Resp 16 01/24/19 19:01 BP 106/66 01/24/19 14:10 Pulse Ox 95 01/24/19 14:10 Intake & Output 01/24/19 01/24/19 01/25/19 06:59 18:59 06:59 Output Total 1100 Balance -1100 Output: Urine 1100 Other: Voiding Method Bedside Commode Bedside Commode Urinal Urinal # Voids 2 # Bowel Movements 2 - Exam On exam, alert and oriented x3. HEENT: Conjunctivae normal. eyes normal. NECK: No JVD. No thyroid enlargement. No LNs CARDIOVASCULAR: S1, S2 muffled. No murmur RESPIRATION: Breath sounds diminished in the bases. No rhonchi or crackles. No bronchial breathing. ABDOMEN: Soft, nontender . No guarding. no masses palpable. No ascites, No hepatosplenomegaly.Bowel sounds heard. LEGS: the bilateral lower extremities are wrapped in dressing NERVOUS SYSTEM: Cranial N 2-12 grossly normal. Moves all 4 limbs. No focal deficits. No sensory deficit. No signs of cerebellar dysfucntion. Skin: no ulcer no rash - Labs CBC & Chem 7: 01/23/19 07:30 01/24/19 07:37 Labs: Abnormal Lab Results - Last 24 Hours (Table) 01/23/19 01/24/19 01/24/19 Range/Units 21:13 07:10 07:37 Carbon Dioxide 31 H (22-30) mmol/L BUN 34 H (9-20) mg/dL Glucose 111 H (74-99) mg/dL POC Glucose (mg/dL) 126 H 126 H (75-99) mg/dL 01/24/19 01/24/19 01/24/19 Range/Units 12:24 17:08 20:12 Carbon Dioxide (22-30) mmol/L BUN (9-20) mg/dL Glucose (74-99) mg/dL POC Glucose (mg/dL) 115 H 115 H 149 H (75-99) mg/dL Microbiology - Last 24 Hours (Table) 01/21/19 13:50 Gram Stain - Final Heel - Left Tissue Culture - Final Staphylococcus aureus Enterococcus faecalis Coagulase Negative Staph Diphtheroid species Assessment and Plan Assessment: - osteomyelitis of the left calcaneus - CHF exacerbation - diabetes mellitus - Hyperlipidemia - Hypertension - COPD - CAD Plan 01/18/2019 - continue antibiotics as per ID recommendations - Anticipate antibiotics for longer duration of times as the patient having vasculitis of the calcaneus - We'll decrease Lasix from 80 twice a day to 40 twice a day - cardiology consulted awaiting recommendations - We'll monitor labs - Follow the patient 01/19/2019 - Continue Lasix infusion as per cardiology recommendations - Continue antibiotics - Continue aggressive medical care - We'll follow up on the patient 01/20/2019 - Continue Lasix infusion - Continue antibiotics as per infectious disease - Continue rest of the medical care - We'll follow up on the patient 01/21/2019 - Patient will be getting a debridement and deep culture of the left heel by vascular surgery - We'll continue antibiotics. - Continue Lasix infusion as per cardiology recommendations. We'll monitor his lites and his kidney functions - Daily I's and O's and weight - We'll continue to monitor the patient 01/22/2019 - Continue Lasix drip as per cardio recommendation. Patient lost a significant amount of weight. We will wait for further recommendations from cardiology regarding the Lasix drip - Continue antibiotics as per ID recommendations. Patient to get a PICC line for outpatient antibiotic therapy continuation - Continue rest of the medical care - We'll follow up on the patient 01/23/2019 - Lasix drip DC'd and patient was on 80 mg of IV Lasix twice a day - We will monitor patient's kidney functions - Continue antibiotics as per ID recommendations - Continue aggressive medical care, daily I's and O's and daily weight - We'll continue to monitor the patient 01/24/2019 - Pt to complet the course of invanz for 6 weeks - Lasix changed to oral - Will continue rest of he medical care - Awaiting placement to go to rehab pending cardio clearance.
[2019-01-25 05:28] VITALS: BP 113/64; PULSE 59; TEMP 97.6
[2019-01-25 07:12] LABS: Glucose,Whole Blood 111 mg/dL (75-99)
[2019-01-25] MEDS: INSULIN ASPART (NovoLOG) 100 UNIT/ML VIAL SQ SCH ×3 (08:31→17:29)
[2019-01-25] MEDS: metFORMIN 500 MG TAB PO SCH ×2 (08:32→17:29)
[2019-01-25] MEDS: SPIRONOLACTONE 25 MG TAB PO SCH (08:32)
[2019-01-25] MEDS: LISINOPRIL 2.5 MG TAB PO SCH (08:33)
[2019-01-25] MEDS: METOPROLOL TARTRATE 12.5 MG TAB PO SCH (08:33)
[2019-01-25] MEDS: POLYETHYLENE GLYCOL 3350 17 GM POWD.PACK PO SCH (08:33)
[2019-01-25] MEDS: ASPIRIN 81 MG PO SCH (08:33)
[2019-01-25] MEDS: ATORVASTATIN 80 MG TAB PO SCH (08:33)
[2019-01-25] MEDS: FAMOTIDINE 20 MG TAB PO SCH (08:33)
[2019-01-25] MEDS: SERTRALINE 50 MG TAB PO SCH (08:34)
[2019-01-25] MEDS: FUROSEMIDE 80 MG TAB PO SCH ×2 (08:34→15:48)
[2019-01-25] MEDS: MULTIVITAMINS, THERA 1 EACH TAB PO SCH (08:34)
[2019-01-25] MEDS: COLLAGENASE 250 UNIT/GM OINTMENT 30 GM TUBE TOPICAL SCH (08:34)
[2019-01-25] MEDS: ERTAPENEM 1 GM in SODIUM CHLORIDE 0.9% 50 ML IVPB SCH (08:35)
[2019-01-25] MEDS: SILVER sulfADIAZINE Cream 400 GM 1 APPLIC APPLIC TOPICAL SCH (08:35)
[2019-01-25 09:12] LABS: HCT 31.1 % (39.0-53.0); HGB 10.1 gm/dL (13.0-17.5); MCH 28.4 pg (25.0-35.0); MCHC 32.4 g/dL (31.0-37.0); MCV 87.6 fL (80.0-100.0); Mean Platelet Volume 8.5; Platelet Count 182 k/uL (150-450); RBC 3.55 m/uL (4.30-5.90); RDW 14.4 % (11.5-15.5); WBC 6.9 k/uL (3.8-10.6)
[2019-01-25] MEDS: BUDESONIDE 1 MG/2 ML NEBU INHALATION SCH (09:27)
[2019-01-25 09:33] LABS: Calcium 9.2 mg/dL (8.4-10.2); Potassium 4.6 mmol/L (3.5-5.1)
[2019-01-25 10:23] VITALS: RESP 18
--- NOTE | 2019-01-25 10:41 | CDI ---
Documentation Clarification Form Date: 01/25/2019 10:29:19 AM From: Luci EspinozaAVILA, CCDS Admit Date: 01/18/2019 7:02:00 PM Patient Name: Karlos Mathews Visit Number: [id number] Discharge Date: ATTENTION: The Clinical Documentation Specialists (CDI) and [facility] Coding Staff appreciate your assistance in clarifying documentation. Please respond to the clarification below the line at the bottom and electronically sign. The CDI & [facility] Coding staff will review the response and follow-up if needed. Please note: Queries are made part of the Legal Health Record. If you have any questions, please contact the author of this message via ITS. Dr. Bossman Mojica: Osteomyelitis has been documented in the progress notes and also on bone scan as osteomyelitis of the left calcaneus. History: CHF, Hyperlipidemia, Hypertension, DM with peripheral neuropathy, COPD & CAD with coronary stent. Clinical Indicators: Patient presented with SOB & weakness via EMS. c/o enlarging ulcer on his left heel. Labs: Glucose 170 X-Ray Results: CXR: Correlate for CHF, bibasilar effusions. 01/18 CXR: May be pulmonary venous hypertension & interstitial edema. Possible LLL atelectasis vs pneumonia or edema & associated effusion. Treatment: Albuterol INH, IV Lasix, IV Solumedrol, IV Ertapeneu, Excision of eschar left heel. In your professional opinion, please specify the acuity of the patien'ts osteomyelitis: Acute Chronic Subacute Unable to Determine Other (please specify): (Last Revision: April 2017) MTDD
--- NOTE | 2019-01-25 11:05 | P.DS ---
Providers Date of admission: 01/18/19 19:02 Expected date of discharge: 01/25/19 Attending physician: Maico Segundo Consults: 01/15/19 16:36 Consult Physician Stat Consulting Provider: Alex Richards Consult Reason/Comments: Heel ulcer Do you want consulting provider notified?: Yes 01/15/19 16:37 Consult Physician Urgent Consulting Provider: Collin Baker Consult Reason/Comments: Ulcers left leg and heel Do you want consulting provider notified?: Yes 01/17/19 23:14 Consult Physician Routine Consulting Provider: Bryan Boyle Consult Reason/Comments: chf Do you want consulting provider notified?: Yes 01/19/19 18:07 Consult Physician Routine Consulting Provider: Duarte Barth Consult Reason/Comments: debridement left heel Do you want consulting provider notified?: Yes Primary care physician: Grey Brown Hospital Course: discharge diagnosis: -Acute on chronic congestive heart exacerbation from systolic dysfunction EF 20/25 percent, POA -acute left calcaneus osteomyelitis -Chronic bilateral lower extremity cellulitis -Diabetes mellitus type 2causingPeripheral neuropathy -hyperlipidemia -Essential hypertension -COPD in a current smoker -coronary artery disease with stents Hospital course: This is a pleasant 73-year-old patient follows a Dr. Brown. Chronic stable medical conditions include congestive heart failure EF 20-25%, diabetes, hyperlipidemia, hypertension, peripheral neuropathy, COPD, coronary artery disease with prior stent. Patient has lower extremity wounds. 3-4 days hadulcers on both the heel. Some pain initially was bleeding and had some further drainage. Appetite has been plus minus. No obvious fevers or chills. He states he's had slight chills. Decided to come in for the same. bone scan was positive for ostomy Adriana of the left heel. Deep debridement was carried out by Dr. Juan from vascular. Patient also had CHF exacerbation treated with IV Lasix. Consultants: Dr. VC Chavez/Dr. Fantasma Villafana from cardiology Dr. Dede De La Paz from ID Dr. Dede Juan from vascular Today-feels comfortable. Laying in bed. tolerate his diett. Stable. lungs-decreased breath sounds. Cardiovascular first seconds are normal. Physical examination: VITAL SIGNS: 97.6, 59, 16, 113/64, 94% on room air GENERAL: ,laying in bed, comfortable, EYES: Pupils equal. Conjunctiva normal. HEENT: External appearance of nose and ears normal, oral cavity grossly normal. NECK: JVD not raised; masses not palpable. HEART: First and second heart sounds are normal; decreased edema. LUNGS: Respiratory rate normal; decreased breath sounds. ABDOMEN: Soft, nontender, liver spleen not palpable, no masses palpable. PSYCH: Alert and oriented x3; mood and affect normal. EXTREMITY: dressing on both lower extremities investigations: white count 6.9, hemoglobin 10.1, potassium 4.6, twice a day 29, creatinine 1.26 [facility]position: [facility] Patient Condition at Discharge: Stable Plan - Discharge Summary Discharge Rx Participant: No New Discharge Prescriptions: New Ertapenem [INVanz] 1 gm IVPB Q24H #40 bag Ipratropium-Albuterol Nebulize [Duoneb 0.5 mg-3 mg/3 ml Soln] 3 ml INHALATION RT-QID PRN ampul.neb PRN Reason: Shortness Of Breath Or Wheezing Nicotine 7Mg/24Hr Patch [Habitrol] 1 patch TRANSDERM DAILY@2100 patch Metoprolol Tartrate [Lopressor] 12.5 mg PO BID tab Budesonide [Pulmicort] 1 mg INHALATION RT-BID nebu Collagenase [Santyl] 1 applic TOPICAL DAILY applic SILVER sulfADIAZINE Cream [Silvadene 1% Cream] 1 applic TOPICAL DAILY applic Continue Aspirin [Adult Low Dose Aspirin EC] 81 mg PO DAILY Atorvastatin [Lipitor] 80 mg PO DAILY metFORMIN HCL [Glucophage] 1,000 mg PO BID Lisinopril [Zestril] 2.5 mg PO DAILY #90 tab Sertraline [Zoloft] 50 mg PO DAILY Nitroglycerin Sl Tabs [Nitrostat] 0.4 mg SL Q5M PRN PRN Reason: Chest Pain Spironolactone [Aldactone] 25 mg PO BID #60 tab Furosemide [Lasix] 80 mg PO BID@0900,1600 tab HYDROcodone/APAP 7.5-325MG [Whately 7.5-325] 1 tab PO Q6HR PRN #12 tab PRN Reason: Pain Mirtazapine [Remeron] 15 mg PO HS #3 tablet Discontinued Metoprolol Tartrate [Lopressor] 12.5 mg PO DAILY Discharge Medication List Aspirin [Adult Low Dose Aspirin EC] 81 mg PO DAILY 04/10/16 [History] Atorvastatin [Lipitor] 80 mg PO DAILY 08/06/16 [History] metFORMIN HCL [Glucophage] 1,000 mg PO BID 08/28/17 [History] Lisinopril [Zestril] 2.5 mg PO DAILY #90 tab 08/27/18 [Rx] Nitroglycerin Sl Tabs [Nitrostat] 0.4 mg SL Q5M PRN 11/02/18 [History] Sertraline [Zoloft] 50 mg PO DAILY 11/02/18 [History] Spironolactone [Aldactone] 25 mg PO BID #60 tab 11/04/18 [Rx] Furosemide [Lasix] 80 mg PO BID@0900,1600 tab 11/27/18 [Rx] Ertapenem [INVanz] 1 gm IVPB Q24H #40 bag 01/22/19 [Rx] Budesonide [Pulmicort] 1 mg INHALATION RT-BID nebu 01/25/19 [Rx] Collagenase [Santyl] 1 applic TOPICAL DAILY applic 01/25/19 [Rx] HYDROcodone/APAP 7.5-325MG [Whately 7.5-325] 1 tab PO Q6HR PRN #12 tab 01/25/19 [Rx] Ipratropium-Albuterol Nebulize [Duoneb 0.5 mg-3 mg/3 ml Soln] 3 ml INHALATION RT-QID PRN ampul.neb 01/25/19 [Rx] Metoprolol Tartrate [Lopressor] 12.5 mg PO BID tab 01/25/19 [Rx] Mirtazapine [Remeron] 15 mg PO HS #3 tablet 01/25/19 [Rx] Nicotine 7Mg/24Hr Patch [Habitrol] 1 patch TRANSDERM DAILY@2100 patch 01/25/19 [Rx] SILVER sulfADIAZINE Cream [Silvadene 1% Cream] 1 applic TOPICAL DAILY applic 01/25/19 [Rx] Follow up Appointment(s)/Referral(s): Grey Brown DO [Primary Care Provider] - 01/26/19 Bryan Boyle MD [STAFF PHYSICIAN] - 2 Weeks [facility], [REFERRING] - 1 Week Evie De La Paz MD [STAFF PHYSICIAN] - 2 Weeks Ambulatory/Diagnostic Orders: Basic Metabolic Panel [LAB.AMB] Location: None Selected C Reactive Protein [LAB.AMB] Location: None Selected Complete Blood Count w/diff [LAB.AMB] Location: None Selected Erythrocyte Sedimentation Rate [LAB.AMB] Location: None Selected Activity/Diet/Wound Care/Special Instructions: Change sterile PICC line dressing Q7 days. Due next 01/29. Diabetic/cardiac diet. Wound care: Left heel- clean with saline, santyl, wrap in krilex and evangelista daily. Bilateral ankle/shins- apply Aqucel Ag to LE, wrap in Krilex and evangelista daily.
[2019-01-25 11:36] LABS: Glucose,Whole Blood 136 mg/dL (75-99)
[2019-01-25] MEDS ORDERED: MEROPENEM 1 GM in SODIUM CHLORIDE 0.9% 100 ML IVPB SCH (16:00)
--- NOTE | 2019-01-25 23:48 | P.PN ---
Subjective Progress Note Date: 01/25/19 74-year-old male who has been followed in the wound healing Center in the past relates to a short history of new ulceration to the left heel. He is not able to relate etiology. He doesn't recall any trauma. He relates only walks a few steps within his home truly does not understand how he could have an injury. Does have history of prior diabetic foot ulcerations. He does have ischemic cardiomyopathy with ejection fraction of about 25%. He's had episode of significant infection to his hand required several surgical interventions and a course of intravenous antibiotic therapy in the past. The patient is quite unhappy at this point in time several attempts are made to try to improve his current difficulties. 01/17/2019 the patient is less miserable today. Pain is slightly improved. His understanding the current plan. 01/25/2019 as noted per Brain the patient has now had the debridement of the heel and the cultures are available. Extended care facility will not accept ertapenem and alternative antibiotic requested Objective - Vital Signs Vital signs: Vital Signs Temp 97.6 F 01/25/19 05:00 Pulse 59 L 01/25/19 05:00 Resp 18 01/25/19 15:26 BP 113/64 01/25/19 05:00 Pulse Ox 94 L 01/25/19 05:00 Intake & Output 01/25/19 01/25/19 01/26/19 06:59 18:59 06:59 Intake Total 240 Output Total 400 Balance 240 -400 Intake: Oral 240 Output: Urine 400 Other: Voiding Method Bedside Commode Bedside Commode Urinal Urinal # Voids 2 - Exam 74 -year-old male unhappy HEENT: Anicteric conjunctiva are pink and moist nasal mucosa grossly intact without significant lesions, there is no thrush. Poor dentition Neck: The neck is supple without significant lymphadenopathy or thyromegaly. Lungs: Symmetric air entry expiratory wheezes no kenny dullness or egophony Heart: Irregular without new murmur click or rub PMI is nondisplaced Abdomen: Obese, Positive bowel sounds soft and nontender without palpable masses or organomegaly. There was no guarding or rebound. Extremities: The upper extremities have excellent pulses they are symmetric, no significant petechiae or telangiectasia. No splinter hemorrhages were noted. Lower extremities evidence of the chronic lower extremity edema is evidence of the eschar of the left heel and again patient is not clear how it started. dressing is in place for the recent surgical debridement of the heel dressing is intact Neuro: Awake alert oriented to person place and time. There are no acute new gross focal sensory motor deficits. - Labs CBC & Chem 7: 01/25/19 08:36 01/25/19 08:36 Labs: Abnormal Lab Results - Last 24 Hours (Table) 01/25/19 01/25/19 01/25/19 Range/Units 07: 08:36 08:36 RBC 3.55 L (4.30-5.90) m/uL Hgb 10.1 L (13.0-17.5) gm/dL Hct 31.1 L (39.0-53.0) % Carbon Dioxide 33 H (22-30) mmol/L BUN 29 H (9-20) mg/dL Creatinine 1.26 H (0.66-1.25) mg/dL Glucose 114 H (74-99) mg/dL POC Glucose (mg/dL) 111 H (75-99) mg/dL 01/25/19 Range/Units 11:31 RBC (4.30-5.90) m/uL Hgb (13.0-17.5) gm/dL Hct (39.0-53.0) % Carbon Dioxide (22-30) mmol/L BUN (9-20) mg/dL Creatinine (0.66-1.25) mg/dL Glucose (74-99) mg/dL POC Glucose (mg/dL) 136 H (75-99) mg/dL Microbiology - Last 24 Hours (Table) 01/21/19 13:50 Anaerobic Culture - Final Heel - Left Laboratory Results WBC 6.9 k/uL (3.8-10.6) 01/25/19 08:36 RBC 3.55 m/uL (4.30-5.90) L 01/25/19 08:36 Hgb 10.1 gm/dL (13.0-17.5) L 01/25/19 08:36 Hct 31.1 % (39.0-53.0) L 01/25/19 08:36 MCV 87.6 fL (80.0-100.0) 01/25/19 08:36 MCH 28.4 pg (25.0-35.0) 01/25/19 08:36 MCHC 32.4 g/dL (31.0-37.0) 01/25/19 08:36 RDW 14.4 % (11.5-15.5) 01/25/19 08:36 Plt Count 182 k/uL (150-450) 01/25/19 08:36 Neutrophils % 80 % 01/15/19 14:02 Lymphocytes % 8 % 01/15/19 14:02 Monocytes % 6 % 01/15/19 14:02 Eosinophils % 4 % 01/15/19 14:02 Basophils % 0 % 01/15/19 14:02 Neutrophils # 5.8 k/uL (1.3-7.7) 01/15/19 14:02 Lymphocytes # 0.6 k/uL (1.0-4.8) L 01/15/19 14:02 Monocytes # 0.5 k/uL (0-1.0) 01/15/19 14:02 Eosinophils # 0.3 k/uL (0-0.7) 01/15/19 14:02 Basophils # 0.0 k/uL (0-0.2) 01/15/19 14:02 Hypochromasia Slight 01/21/19 07:03 PT 11.1 sec (9.0-12.0) 01/15/19 14:02 INR 1.1 (<1.2) 01/15/19 14:02 APTT 25.8 sec (22.0-30.0) 01/15/19 14:02 Sodium 139 mmol/L (137-145) 01/25/19 08:36 Potassium 4.6 mmol/L (3.5-5.1) 01/25/19 08:36 Chloride 99 mmol/L (98-107) 01/25/19 08:36 Carbon Dioxide 33 mmol/L (22-30) H 01/25/19 08:36 Anion Gap 7 mmol/L 01/25/19 08:36 BUN 29 mg/dL (9-20) H 01/25/19 08:36 Creatinine 1.26 mg/dL (0.66-1.25) H 01/25/19 08:36 Est GFR (CKD-EPI)AfAm 64 (>60 ml/min/1.73 sqM) 01/25/19 08:36 Est GFR (CKD-EPI)NonAf 55 (>60 ml/min/1.73 sqM) 01/25/19 08:36 Glucose 114 mg/dL (74-99) H 01/25/19 08:36 POC Glucose (mg/dL) 136 mg/dL (75-99) H 01/25/19 11:31 POC Glu Amplifier Mechanic Susie Samayoa 01/25/19 11:31 Calcium 9.2 mg/dL (8.4-10.2) 01/25/19 08:36 Total Bilirubin 0.7 mg/dL (0.2-1.3) 01/23/19 00:10 AST 24 U/L (17-59) 01/23/19 00:10 ALT 26 U/L (21-72) 01/23/19 00:10 Alkaline Phosphatase 122 U/L (38-126) 01/23/19 00:10 Creatine Kinase 81 U/L (55-170) 01/15/19 14:02 Troponin I <0.012 ng/mL (0.000-0.034) 01/16/19 01:44 NT-Pro-B Natriuret Pep 2680 pg/mL 01/18/19 07:10 Total Protein 6.1 g/dL (6.3-8.2) L 01/23/19 00:10 Albumin 3.1 g/dL (3.5-5.0) L 01/23/19 00:10 Microbiology 01/21/19 13:50 Heel - Left Anaerobic Culture - Final 01/21/19 13:50 Heel - Left Gram Stain - Final 01/21/19 13:50 Heel - Left Tissue Culture - Final Staphylococcus aureus Enterococcus faecalis Coagulase Negative Staph Diphtheroid species 01/15/19 16:15 Blood Blood Culture - Final No Growth after 144 hours 01/21/19 13:50 Heel - Left Fungal Culture - Preliminary 01/16/19 13:06 Foot - Left Gram Stain - Final 01/16/19 13:06 Foot - Left Wound Culture - Final Klebsiella pneumoniae Enterococcus faecalis Staphylococcus aureus Assessment and Plan (1) CHF (congestive heart failure) Status: Acute Code(s): I50.9 - HEART FAILURE, UNSPECIFIED SNOMED Code(s): 34687995 (2) Diabetic ulcer of left foot associated with diabetes mellitus due to underlying condition, with fat layer exposed Narrative/Plan: 74-year-old male presents to Hospital with a short history over the last few days of ulceration to his left heel. He is not clear how it started this developed the deep tissue injury to that area with eschar in place. Cultur e is obtained and sent to the laboratory. He understands the importance of offloading. Local wound care to the heel will be started with therahoney. To the bilateral lower extremities. He has a chronic changes Silvadene will be applied. The rolled gauze and Hector wrap so be applied to both legs. Elevate them as much as he can. I do come to his room on 2 occasions and both times he is sitting u pright with his legs in dependent position. The patient is unhappy with his care. His legs were unwrapped 1 lunch came and refused to eat both legs were unwrapped wall the 1 products were coming from the central sternal area. He refused a sandwich. I was able to get him a cup of coffee a warm blanket which seemed to see with him. I've asked the nurses to weigh him ensure that he is getting his Lasix on a daily basis. Based on prior cultures Invanz is being requested especially with his penicillin ALLERGY to cover the pathogens of the diabetic foot ulceration. Bone scan requested to ensure there is no underlying bony infection. 01/17/2019 the patient is slightly improved today. His pain seems to be stable. Doing well with pain medications. Patient has several concerns. Arrived to Hospital by ambulance and does not wake home. We'll ask social work to help him arrange for a ride home. Bone scan tomorrow if there is evidence of underlying osteomyelitis within need to make arrangements for outpatient intravenous antibiotic therapy likely with Invanz based on prior cultures. However current culture may further direct that. However if there is no evidence of osteoarthritis oral antibiotic therapy will hopefully be an option. Would continue local wound care with therahoney through his home care nurse at discharge. Follow the wound healing Center. 01/25/2019 reveals evidence of the osteomyelitis of the ulceration to the left heel, it is now status post surgical debridement. Cultures showed a polymicrobial infection and although Invanz is an adequate choice cannot be utilized at the extended care facility and constantly is transitioned to meropenem which appears to be a covered item. Merrem 1 g IV piggyback every 8 hours as planned for 42 days. Needs to follow-up in the office within 3 weeks with weekly blood work including CBC with differential, BMP, sed rate and CRP. Orders are given to the extended care facility. Status: Acute Code(s): E08.621 - DIABETES MELLITUS DUE TO UNDERLYING CONDITION W FOOT ULCER; L97.522 - NON-PRS CHRONIC ULCER OTH PRT LEFT FOOT W FAT LAYER EXPOSED SNOMED Code(s): 088134013
== END 2019-01-25 18:15 | DRG 622 ==
LOC: EC 13:10 → INTOOBSV 16:41 → 3NMEDONC 16:41 → OBSVTOIN 01-18 19:02
PROVIDERS: ADMIT Hospitalist; ATTEND Hospitalist
PROC: 0JBR0ZZ Excision of Left Foot Subcutaneous Tissue and Fascia, Open Approach (ICD-10-PCS; principal; 2019-01-21 12:00)
PROC: 02HV33Z Insertion of Infusion Device into Superior Vena Cava, Percutaneous Approach (ICD-10-PCS; 2019-01-22)
DX: E11.69 Type 2 diabetes mellitus with other specified complication (principal); I50.23 Acute on chronic systolic (congestive) heart failure; L03.115 Cellulitis of right lower limb; L03.116 Cellulitis of left lower limb; M86.172 Other acute osteomyelitis, left ankle and foot; L97.422 Non-pressure chronic ulcer of left heel and midfoot with fat layer exposed; E11.42 Type 2 diabetes mellitus with diabetic polyneuropathy; E11.51 Type 2 diabetes mellitus with diabetic peripheral angiopathy without gangrene; E11.621 Type 2 diabetes mellitus with foot ulcer; E78.5 Hyperlipidemia, unspecified; F17.200 Nicotine dependence, unspecified, uncomplicated; I11.0 Hypertensive heart disease with heart failure; I25.10 Atherosclerotic heart disease of native coronary artery without angina pectoris; I25.2 Old myocardial infarction; I25.5 Ischemic cardiomyopathy; I44.0 Atrioventricular block, first degree; I45.10 Unspecified right bundle-branch block; I77.6 Arteritis, unspecified; J44.9 Chronic obstructive pulmonary disease, unspecified; M06.9 Rheumatoid arthritis, unspecified; Z79.2 Long term (current) use of antibiotics; Z79.82 Long term (current) use of aspirin; Z79.84 Long term (current) use of oral hypoglycemic drugs; Z79.899 Other long term (current) drug therapy; Z82.49 Family history of ischemic heart disease and other diseases of the circulatory system; Z88.0 Allergy status to penicillin; Z95.5 Presence of coronary angioplasty implant and graft; Z95.810 Presence of automatic (implantable) cardiac defibrillator; B96.20 Unspecified Escherichia coli [E. coli] as the cause of diseases classified elsewhere; B96.1 Klebsiella pneumoniae [K. pneumoniae] as the cause of diseases classified elsewhere; B95.61 Methicillin susceptible Staphylococcus aureus infection as the cause of diseases classified elsewhere; Z90.49 Acquired absence of other specified parts of digestive tract; Z98.42 Cataract extraction status, left eye
CPT/HCPCS: 36415; 36573; 64445; 71046; 78315; 80048; 80053; 82550; 83880; 84484; 85025; 85027; 85610; 85730; 87040; 87070; 87075; 87077; 87102; 87186; 87205; 93005; 94640; 94760; 96374; 96375; 99285

== ENCOUNTER 2019-03-01 19:16 | Inpatient (IN) | payer MEDICARE, OTHER ==
--- NOTE | 2019-03-01 20:24 | ED ---
General Adult HPI - General Chief complaint: Weakness Stated complaint: Weakness Time Seen by Provider: 03/01/19 19:21 Source: EMS Mode of arrival: EMS Limitations: no limitations - History of Present Illness Initial comments: Dictation was produced using [employer] dictation software. please excuse any grammatical, word or spelling errors. Chief Complaint: 74-year-old male past medical history of diabetic foot ulcers, chronic wound to the bilateral lower extremities, heart failure COPD presents with bilateral lower extremity swelling and pain. History of Present Illness: 74-year-old male presents today for chief complaint of lower extremity swelling and pain. Patient has been having symptoms for 3-4 days. Patient is complex medical history of osteomyelitis to the left foot. Patient's history of diabetic foot ulcers. He just had a PICC line removed approximately one week ago. Patient was receiving infusions for osteomyelitis. Patient denies any fever, chills or night sweats. Denies any shortness of breath. He has a history of COPD and heart failure. Patient has a chronic left heel wound. Most of his pain is located to the bilateral tib-fib area. He wears compression stockings. He has been having home health care at his house for wound checks. Patient also has been following up at the [facility]. The ROS documented in this emergency department record has been reviewed and confirmed by me. Those systems with pertinent positive or negative responses have been documented in the HPI. All other systems are other negative and/or noncontributory. PHYSICAL EXAM: General Impression: Alert and oriented x3, not in acute distress HEENT: Normocephalic atraumatic, extra-ocular movements intact, pupils equal and reactive to light bilaterally, mucous membranes moist. Cardiovascular: Heart regular rate and rhythm, S1&S2 audible, no murmurs, rubs or gallops Chest: Lungs clear to auscultation bilaterally, no rhonchi, no wheeze, no rales Abdomen: Bowel sounds present, abdomen soft, non-tender, non-distended, no organomegaly Musculoskeletal: Pulses present and equal in all extremities, no peripheral edema Motor: no focal deficits noted Neurological: CN II-XII grossly intact, no focal motor or sensory deficits noted Skin: Bilateral tibial erythema with minimal warmth. Tenderness to palpation along the tibial area. Psych: Normal affect and mood ED course: 74-year-old male presents with chief complaint of bilateral lower extremity edema and pain. Signs upon arrival are within acceptable limits.Laboratory evaluation obtained. No leukocytosis. Hemoglobin is 10 which appears to be a patient's baseline. Rest of CBC is unremarkable. Coag panel unremarkable. Metabolic panel shows mild hyperkalemia 5.7. Patient given Lasix. Rest of labs shows elevated brain injury peptide of 2660 which appears to be around baseline. Urinalysis negative. Chest x-ray is nonacute. Clinical presentation is concerning for bilateral lower extremity cellulitis. Patient started on vancomycin. Admit patient to observation with consultation to infectious disease. EKG interpretation: Ventricular rate 99, sinus rhythm with sinus arrhythmia, TX interval 214, QS 100, QTC 413 No TX prolongation, no QTC prolongation, no ST or T-wave changes noted. EKG compared to 01/15/2019 showing no changes. Overall, this EKG is unremarkable - Related Data Home Medications Medication Instructions Recorded Confirmed Aspirin [Adult Low Dose Aspirin EC] 81 mg PO DAILY 04/10/16 01/15/19 Atorvastatin [Lipitor] 80 mg PO DAILY 08/06/16 01/15/19 metFORMIN HCL [Glucophage] 1,000 mg PO BID 08/28/17 01/15/19 Nitroglycerin Sl Tabs [Nitrostat] 0.4 mg SL Q5M PRN 11/02/18 01/15/19 Sertraline [Zoloft] 50 mg PO DAILY 11/02/18 01/15/19 Previous Rx's Medication Instructions Recorded Lisinopril [Zestril] 2.5 mg PO DAILY #90 tab 08/27/18 Spironolactone [Aldactone] 25 mg PO BID #60 tab 11/04/18 Furosemide [Lasix] 80 mg PO BID@0900,1600 tab 11/27/18 Budesonide [Pulmicort] 1 mg INHALATION RT-BID nebu 01/25/19 Collagenase [Santyl] 1 applic TOPICAL DAILY applic 01/25/19 HYDROcodone/APAP 7.5-325MG [[place] 1 tab PO Q6HR PRN #12 tab 01/25/19 7.5-325] Ipratropium-Albuterol Nebulize 3 ml INHALATION RT-QID PRN 01/25/19 [Duoneb 0.5 mg-3 mg/3 ml Soln] ampul.neb Meropenem [Merrem] 1 gm IVPB Q8H #63 vial 01/25/19 Metoprolol Tartrate [Lopressor] 12.5 mg PO BID tab 01/25/19 Mirtazapine [Remeron] 15 mg PO HS #3 tablet 01/25/19 Nicotine 7Mg/24Hr Patch [Habitrol] 1 patch TRANSDERM DAILY@2100 patch 01/25/19 SILVER sulfADIAZINE Cream 1 applic TOPICAL DAILY applic 01/25/19 [Silvadene 1% Cream] Allergies Allergy/AdvReac Type Severity Reaction Status Date / Time Penicillins Allergy Rash/Hives Verified 03/01/19 20:08 gabapentin [From Neurontin] AdvReac Nausea Verified 03/01/19 20:08 Review of Systems ROS Statement: Those systems with pertinent positive or pertinent negative responses have been documented in the HPI. ROS Other: All systems not noted in ROS Statement are negative. Past Medical History Past Medical History: Chest Pain / Angina, Heart Failure, COPD, Diabetes Mellitus, Hyperlipidemia, Hypertension, Myocardial Infarction (CA), Rheumatoid Arthritis (RA) Additional Past Medical History / Comment(s): anemia Last Myocardial Infarction Date:: 2010 History of Any Multi-Drug Resistant Organisms: MRSA, VRE Date of last positivie culture/infection: 12/08/15 MDRO Source:: RIGHT FOOT MRSA AND VRE Past Surgical History: Appendectomy, Cholecystectomy, Heart Catheterization With Stent, Hernia Repair, Tonsillectomy Additional Past Surgical History / Comment(s): cervical fusion laminactomy , left carpal tunnel release, cataract left eye, HEART STENT X2, 10-16-15 PTBA /RT LEG STENT, rt hand x2 surgery, umb hernia, past picc line, AICD [address]hatia Past Anesthesia/Blood Transfusion Reactions: Postoperative Nausea & Vomiting (P ONV) Additional Past Anesthesia/Blood Transfusion Reaction / Comment(s): .PT STATED AFTER HAND SX HAD DIFFICULTY URINATING AND PAIN MEDS CONSTIPATE HIM. Date of Last Stent Placement:: 12/2013 Type of Cardiac Device: AICD Device Placement Date:: 2014 Past Psychological History: No Psychological Hx Reported Smoking Status: Current every day smoker Past Alcohol Use History: None Reported Past Drug Use History: None Reported - Past Family History Mother Additional Family Medical History / Comment(s): PT STATED MOM WAS HEALTHY BUT IN OLDER AGE GOT PNE- FROM COMPLICATIONS OF PNE. Father Family Medical History: Osteoarthritis (OA) Additional Family Medical History / Comment(s): ULCERS, HEART PROBLEMS HAD BYPASS,BACK SURGURY General Exam Limitations: no limitations Course Vital Signs 03/01/19 03/01/19 03/01/19 19:27 20:00 21:00 Temperature 98.8 F Pulse Rate 73 71 71 Respiratory 18 12 18 Rate Blood Pressure 118/68 127/61 129/85 O2 Sat by Pulse 99 97 97 Oximetry 03/01/19 21:39 Temperature Pulse Rate 70 Respiratory 18 Rate Blood Pressure 108/63 O2 Sat by Pulse 97 Oximetry Medical Decision Making - Lab Data Result diagrams: 03/01/19 19:38 03/01/19 19:38 Lab Results 03/01/19 03/01/19 03/01/19 Range/Units 19:38 19:38 19:38 WBC 8.9 (3.8-10.6) k/uL RBC 3.37 L (4.30-5.90) m/uL Hgb 10.0 L (13.0-17.5) gm/dL Hct 29.7 L (39.0-53.0) % MCV 88.1 (80.0-100.0) fL MCH 29.8 (25.0-35.0) pg MCHC 33.8 (31.0-37.0) g/dL RDW 15.8 H (11.5-15.5) % Plt Count 168 (150-450) k/uL Neutrophils % 78 % Lymphocytes % 9 % Monocytes % 6 % Eosinophils % 5 % Basophils % 0 % Neutrophils # 7.0 (1.3-7.7) k/uL Lymphocytes # 0.8 L (1.0-4.8) k/uL Monocytes # 0.5 (0-1.0) k/uL Eosinophils # 0.4 (0-0.7) k/uL Basophils # 0.0 (0-0.2) k/uL PT (9.0-12.0) sec INR (<1.2) APTT (22.0-30.0) sec Sodium 137 (137-145) mmol/L Potassium 5.7 H (3.5-5.1) mmol/L Chloride 105 (98-107) mmol/L Carbon Dioxide 23 (22-30) mmol/L Anion Gap 9 mmol/L BUN 30 H (9-20) mg/dL Creatinine 0.94 (0.66-1.25) mg/dL Est GFR (CKD-EPI)AfAm >90 (>60 ml/min/1.73 sqM) Est GFR (CKD-EPI)NonAf 79 (>60 ml/min/1.73 sqM) Glucose 196 H (74-99) mg/dL Plasma Lactic Acid Steve 1.3 (0.7-2.0) mmol/L Calcium 9.1 (8.4-10.2) mg/dL Magnesium 2.0 (1.6-2.3) mg/dL Total Bilirubin 0.9 (0.2-1.3) mg/dL AST 40 (17-59) U/L ALT 67 (21-72) U/L Alkaline Phosphatase 169 H (38-126) U/L Troponin I (0.000-0.034) ng/mL NT-Pro-B Natriuret Pep pg/mL Total Protein 7.1 (6.3-8.2) g/dL Albumin 3.5 (3.5-5.0) g/dL TSH 1.450 (0.465-4.680) mIU/L Urine Color Urine Appearance (Clear) Urine pH (5.0-8.0) Ur Specific [place] (1.001-1.035) Urine Protein (Negative) Urine Glucose (UA) (Negative) Urine Ketones (Negative) Urine Blood (Negative) Urine Nitrite (Negative) Urine Bilirubin (Negative) Urine Urobilinogen (<2.0) mg/dL Ur Leukocyte Esterase (Negative) Urine RBC (0-5) /hpf Urine WBC (0-5) /hpf Ur Squamous Epith Cells (0-4) /hpf Urine Mucus (None) /hpf 03/01/19 03/01/19 03/01/19 Range/Units 19:38 19:38 19:38 WBC (3.8-10.6) k/uL RBC (4.30-5.90) m/uL Hgb (13.0-17.5) gm/dL Hct (39.0-53.0) % MCV (80.0-100.0) fL MCH (25.0-35.0) pg MCHC (31.0-37.0) g/dL RDW (11.5-15.5) % Plt Count (150-450) k/uL Neutrophils % % Lymphocytes % % Monocytes % % Eosinophils % % Basophils % % Neutrophils # (1.3-7.7) k/uL Lymphocytes # (1.0-4.8) k/uL Monocytes # (0-1.0) k/uL Eosinophils # (0-0.7) k/uL Basophils # (0-0.2) k/uL PT 10.4 (9.0-12.0) sec INR 1.0 (<1.2) APTT 28.0 (22.0-30.0) sec Sodium (137-145) mmol/L Potassium (3.5-5.1) mmol/L Chloride (98-107) mmol/L Carbon Dioxide (22-30) mmol/L Anion Gap mmol/L BUN (9-20) mg/dL Creatinine (0.66-1.25) mg/dL Est GFR (CKD-EPI)AfAm (>60 ml/min/1.73 sqM) Est GFR (CKD-EPI)NonAf (>60 ml/min/1.73 sqM) Glucose (74-99) mg/dL Plasma Lactic Acid Steve (0.7-2.0) mmol/L Calcium (8.4-10.2) mg/dL Magnesium (1.6-2.3) mg/dL Total Bilirubin (0.2-1.3) mg/dL AST (17-59) U/L ALT (21-72) U/L Alkaline Phosphatase (38-126) U/L Troponin I <0.012 (0.000-0.034) ng/mL NT-Pro-B Natriuret Pep 2660 pg/mL Total Protein (6.3-8.2) g/dL Albumin (3.5-5.0) g/dL TSH (0.465-4.680) mIU/L Urine Color Urine Appearance (Clear) Urine pH (5.0-8.0) Ur Specific [place] (1.001-1.035) Urine Protein (Negative) Urine Glucose (UA) (Negative) Urine Ketones (Negative) Urine Blood (Negative) Urine Nitrite (Negative) Urine Bilirubin (Negative) Urine Urobilinogen (<2.0) mg/dL Ur Leukocyte Esterase (Negative) Urine RBC (0-5) /hpf Urine WBC (0-5) /hpf Ur Squamous Epith Cells (0-4) /hpf Urine Mucus (None) /hpf 03/01/19 Range/Units 23:00 WBC (3.8-10.6) k/uL RBC (4.30-5.90) m/uL Hgb (13.0-17.5) gm/dL Hct (39.0-53.0) % MCV (80.0-100.0) fL MCH (25.0-35.0) pg MCHC (31.0-37.0) g/dL RDW (11.5-15.5) % Plt Count (150-450) k/uL Neutrophils % % Lymphocytes % % Monocytes % % Eosinophils % % Basophils % % Neutrophils # (1.3-7.7) k/uL Lymphocytes # (1.0-4.8) k/uL Monocytes # (0-1.0) k/uL Eosinophils # (0-0.7) k/uL Basophils # (0-0.2) k/uL PT (9.0-12.0) sec INR (<1.2) APTT (22.0-30.0) sec Sodium (137-145) mmol/L Potassium (3.5-5.1) mmol/L Chloride (98-107) mmol/L Carbon Dioxide (22-30) mmol/L Anion Gap mmol/L BUN (9-20) mg/dL Creatinine (0.66-1.25) mg/dL Est GFR (CKD-EPI)AfAm (>60 ml/min/1.73 sqM) Est GFR (CKD-EPI)NonAf (>60 ml/min/1.73 sqM) Glucose (74-99) mg/dL Plasma Lactic Acid Steve (0.7-2.0) mmol/L Calcium (8.4-10.2) mg/dL Magnesium (1.6-2.3) mg/dL Total Bilirubin (0.2-1.3) mg/dL AST (17-59) U/L ALT (21-72) U/L Alkaline Phosphatase (38-126) U/L Troponin I (0.000-0.034) ng/mL NT-Pro-B Natriuret Pep pg/mL Total Protein (6.3-8.2) g/dL Albumin (3.5-5.0) g/dL TSH (0.465-4.680) mIU/L Urine Color Yellow Urine Appearance Clear (Clear) Urine pH 5.5 (5.0-8.0) Ur Specific [place] 1.022 (1.001-1.035) Urine Protein 1+ H (Negative) Urine Glucose (UA) Trace H (Negative) Urine Ketones Negative (Negative) Urine Blood Trace H (Negative) Urine Nitrite Negative (Negative) Urine Bilirubin Negative (Negative) Urine Urobilinogen 2.0 (<2.0) mg/dL Ur Leukocyte Esterase Negative (Negative) Urine RBC 1 (0-5) /hpf Urine WBC 1 (0-5) /hpf Ur Squamous Epith Cells <1 (0-4) /hpf Urine Mucus Rare H (None) /hpf Disposition Clinical Impression: Cellulitis Disposition: ADMITTED IP TO THIS [facility] Condition: Fair Referrals: Grey Brown DO [Primary Care Provider] - 1-2 days Decision Time: 00:01
--- NOTE | 2019-03-01 20:46 | XR ---
EXAMINATION TYPE: XR chest 2V DATE OF EXAM: 03/01/2019 COMPARISON: 01/18/2019 HISTORY: Weakness TECHNIQUE: Frontal and lateral views of the chest are obtained. FINDINGS: There is no heart failure nor confluent pneumonic infiltrate. There is probably small left pleural effusion. There is left axillary pacemaker. Bony thorax is intact. IMPRESSION: Small left pleural effusion is improved compared to last exam. No heart failure seen.
[2019-03-01 20:57] LABS: Basophils % (A) 0 %; Eosinophils # (A) 0.4 k/uL (0-0.7); Eosinophils % (A) 5 %; HCT 29.7 % (39.0-53.0); Lymphocytes # (A) 0.8 k/uL (1.0-4.8); Lymphocytes % (A) 9 %; MCH 29.8 pg (25.0-35.0); MCHC 33.8 g/dL (31.0-37.0); MCV 88.1 fL (80.0-100.0); Mean Platelet Volume 8.4; Monocytes # (A) 0.5 k/uL (0-1.0); Monocytes % (A) 6 %; Neutrophils % (A) 78 %; Platelet Count 168 k/uL (150-450); RBC 3.37 m/uL (4.30-5.90); RDW 15.8 % (11.5-15.5); WBC 8.9 k/uL (3.8-10.6)
[2019-03-01 21:07] LABS: Prothrombin Time 10.4 sec (9.0-12.0)
[2019-03-01 21:12] LABS: ALT 67 U/L (21-72); AST 40 U/L (17-59); African American GFR (CKD) >90 (>60 ml/min/1.73 sqM); Albumin 3.5 g/dL (3.5-5.0); Alkaline Phosphatase 169 U/L (38-126); Anion Gap 9 mmol/L; Blood Urea Nitrogen 30 mg/dL (9-20); Calcium 9.1 mg/dL (8.4-10.2); Carbon Dioxide 23 mmol/L (22-30); Chloride 105 mmol/L (98-107); Glucose 196 mg/dL (74-99); Potassium 5.7 mmol/L (3.5-5.1); Sodium 137 mmol/L (137-145); Total Bilirubin 0.9 mg/dL (0.2-1.3); Total Protein 7.1 g/dL (6.3-8.2)
[2019-03-01] MEDS ORDERED: HYDROcodone/APAP 7.5-325MG 1 EACH TAB PO ONE (21:13)
[2019-03-01] MEDS ORDERED: FUROSEMIDE 10 MG/ML 4 ML VIAL IV STA (23:29)
[2019-03-01 23:39] LABS: Appearance,Urine Clear (Clear); Bilirubin,Urine Negative (Negative); Blood,Urine Trace (Negative); Color,Urine Yellow; Glucose,Urine (UA) Trace (Negative); Ketones,Urine Negative (Negative); Leukocyte Esterase,Urine Negative (Negative); Mucus,Urine Rare /hpf; Nitrite,Urine Negative (Negative); PH, Urine 5.5 (5.0-8.0); Protein,Urine 1+ (Negative); RBC,Urine 1 /hpf (0-5); Specific Gravity,Urine 1.022 (1.001-1.035); Squamous Epithelial Cell,Urine <1 /hpf (0-4)
[2019-03-01] MEDS ORDERED: VANCOMYCIN IV PER PHARMACY 1 EACH MISC MISCELLANE PRN (23:57)
[2019-03-01] MEDS ORDERED: NALOXONE 0.4 MG/ML 1 ML VIAL IV PRN (23:57)
[2019-03-01] MEDS ORDERED: ACETAMINOPHEN TAB 325 MG TAB PO PRN (23:57)
[2019-03-01] MEDS ORDERED: ONDANSETRON 4 MG/2 ML VIAL IVP PRN (23:57)
[2019-03-02] MEDS ORDERED: VANCOMYCIN 1,750 MG in SODIUM CHLORIDE 0.9% 500 ML 500 ML IVPB STA (00:02)
[2019-03-02] MEDS: SODIUM CHLORIDE 0.9% 1,000 ML IV SCH (01:00)
[2019-03-02] MEDS: HEPARIN SODIUM,PORCINE 5,000 UNIT/ML 1 ML VIAL SQ SCH ×3 (01:01→14:22)
[2019-03-02] MEDS: oxyCODONE-APAP 5-325MG 1 EACH TAB PO PRN ×2 (05:02→09:42)
[2019-03-02] MEDS ORDERED: LISINOPRIL 2.5 MG TAB PO SCH (09:00)
[2019-03-02] MEDS ORDERED: PANTOPRAZOLE 40 MG/10 ML VIAL IV SCH (09:00)
[2019-03-02] MEDS: METOPROLOL TARTRATE 12.5 MG TAB PO SCH ×2 (09:41→21:25)
[2019-03-02] MEDS: ATORVASTATIN 80 MG TAB PO SCH (09:42)
[2019-03-02] MEDS: VANCOMYCIN 1,750 MG in SODIUM CHLORIDE 0.9% 500 ML 500 ML IVPB SCH ×2 (10:32→21:24)
[2019-03-02] MEDS ORDERED: SODIUM POLYSTYRENE SULFONATE 15 GM/60 ML BOTTLE PO STA (13:56)
[2019-03-02] MEDS ORDERED: NITROGLYCERIN SL TABS 0.4 MG TAB SUBLINGUAL PRN (13:58)
[2019-03-02] MEDS: hydrALAZINE HCL 50 MG TAB PO SCH ×2 (14:22→21:25)
[2019-03-02] MEDS: FUROSEMIDE 80 MG TAB PO SCH (14:22)
--- NOTE | 2019-03-02 17:32 | P.HPIM ---
History of Present Illness 74-year-old o came to the hospital blood in by the neighbors because patient was feeling lethargic not feeling well not being himself and in ER patient is found to have "I diabetic foot ulcer appears to be stage 3-4 no exposed bone., They believe patient has a lightest and was subsequently admitted patient was evaluated by infectious disease suspicion for cellulitis he is extremely low and patient is receiving infusions prostanoids that was recently diagnosed. Although patient does have other issues including congestive heart failure chronic systolic dysfunction ejection fraction of around 20% as well as diastolic dysfunction although not in acute exacerbation patient does have swelling in both legs and to is on lisinopril with elevated serum potassium of 5.7 recorded in order Kayaxalate, lisinopril discontinued and instead will start him on low-dose of imbued and hydralazine his blood pressure is borderline. Review of Systems REVIEW OF SYSTEMS: CONSTITUTIONAL: as mentioned above HEENT: No recent visual problems or hearing problems. Denied any sore throat. CARDIOVASCULAR: No chest pain, orthopnea, PND, no palpitations, no syncope. PULMONARY: No shortness of breath, no cough, no hemoptysis. GASTROINTESTINAL: No diarrhea, no nausea, no vomiting, no abdominal pain. NEUROLOGICAL: No headaches, no weakness, no numbness. HEMATOLOGICAL: Denies any bleeding or petechiae. GENITOURINARY: Denies any burning micturition, frequency, or urgency. MUSCULOSKELETAL/RHEUMATOLOGICAL: Denies any joint pain, swelling, or any muscle pain. ENDOCRINE: Denies any polyuria or polydipsia. The rest of the 14-point review of systems is negative. Past Medical History Past Medical History: Heart Failure, COPD, Diabetes Mellitus, Hyperlipidemia, Hypertension, Myocardial Infarction ([place]), Rheumatoid Arthritis (RA) Additional Past Medical History / Comment(s): Anemia, Fall December 2018, Left heel osteomylitis Last Myocardial Infarction Date:: 2010 History of Any Multi-Drug Resistant Organisms: MRSA, VRE Date of last positivie culture/infection: 12/08/15 MDRO Source:: RIGHT FOOT MRSA AND VRE Past Surgical History: Appendectomy, Cholecystectomy, Heart Catheterization With Stent, Hernia Repair, Tonsillectomy Additional Past Surgical History / Comment(s): cervical fusion laminactomy , left carpal tunnel release, cataract left eye, HEART STENT X2, 10-16-15 PTBA /RT LEG STENT, rt hand x2 surgery, umb hernia, past picc line, AICD [address] Bhatia Past Anesthesia/Blood Transfusion Reactions: Postoperative Nausea & Vomiting (PONV) Additional Past Anesthesia/Blood Transfusion Reaction / Comment(s): .PT STATED AFTER HAND SX HAD DIFFICULTY URINATING AND PAIN MEDS CONSTIPATE HIM. Date of Last Stent Placement:: 12/2013 Type of Cardiac Device: AICD Device Placement Date:: 2014 Past Psychological History: No Psychological Hx Reported Additional Psychological History / Comment(s): PT LIVES AT HOME WITH HIS (IS CAREGIVER TO HIS ). 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 Remains a smoker. Denies current alcohol use. No travel. Was in the [place] in his youth. No animals at home Smoking Status: Current every day smoker Past Alcohol Use History: None Reported Additional Past Alcohol Use History / Comment(s): PT STARTED SMOKING AT AGE 14 WORKED UP TO 1.5 PPD BUT HAS CUT DOWN TO 1/2 PPD. He denies any marijuana or illicit drug use. He denies any alcohol use. 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 No pets in the home. Past Drug Use History: None Reported - Past Family History Mother Additional Family Medical History / Comment(s): PT STATED MOM WAS HEALTHY BUT IN OLDER AGE GOT PNE- FROM COMPLICATIONS OF PNE. Father Family Medical History: Osteoarthritis (OA) Additional Family Medical History / Comment(s): ULCERS, HEART PROBLEMS HAD BYPASS,BACK SURGURY Medications and Allergies Home Medications Medication Instructions Recorded Confirmed Type Aspirin [Adult Low Dose Aspirin EC] 81 mg PO DAILY 04/10/16 03/02/19 History Atorvastatin [Lipitor] 80 mg PO DAILY 08/06/16 03/02/19 History metFORMIN HCL [Glucophage] 1,000 mg PO BID 08/28/17 03/02/19 History Lisinopril [Zestril] 2.5 mg PO DAILY #90 tab 08/27/18 03/02/19 Rx Nitroglycerin Sl Tabs [Nitrostat] 0.4 mg SL Q5M PRN 11/02/18 03/02/19 History Sertraline [Zoloft] 50 mg PO DAILY 11/02/18 03/02/19 History Spironolactone [Aldactone] 25 mg PO BID #60 tab 11/04/18 03/02/19 Rx Furosemide [Lasix] 80 mg PO BID@0900,1600 tab 11/27/18 03/02/19 Rx HYDROcodone/APAP 7.5-325MG [[place] 1 tab PO Q6HR PRN #12 tab 01/25/19 03/02/19 Rx 7.5-325] Metoprolol Tartrate [Lopressor] 12.5 mg PO BID tab 01/25/19 03/02/19 Rx Mirtazapine [Remeron] 15 mg PO HS #3 tablet 01/25/19 03/02/19 Rx Allergies Allergy/AdvReac Type Severity Reaction Status Date / Time Penicillins Allergy Rash/Hives Verified 03/02/19 08:45 gabapentin [From Neurontin] AdvReac Nausea Verified 03/02/19 08:45 Physical Exam Vitals: Vital Signs Temp Pulse Pulse Resp BP BP Pulse Ox 03/02/19 16:15 63 18 03/02/19 15:00 97.1 F L 63 18 104/61 95 03/02/19 08:25 97.7 F 71 18 105/65 95 03/02/19 05:05 98.7 F 80 18 115/87 98 03/02/19 01:12 99.6 F 71 18 99/71 97 03/02/19 00:00 82 16 114/84 96 03/01/19 23:30 78 12 111/64 96 03/01/19 23:00 80 16 111/64 96 03/01/19 22:30 72 14 115/67 95 03/01/19 21:39 70 18 108/63 97 03/01/19 21:30 71 14 100/53 96 03/01/19 21:00 71 18 129/85 97 03/01/19 20:00 71 12 127/61 97 03/01/19 19:27 98.8 F 73 18 118/68 99 Intake and Output 03/02/19 03/02/19 03/02/19 06:59 14:59 22:59 Intake Total 514 100 Output Total 750 260 200 Balance -236 -160 -200 Intake: Intake, IV Titration 500 Amount Vancomycin 1,750 mg In 500 Sodium Chloride 0.9% 500 ml 500 ml @ 167 mls/hr IVPB Q12H [facility] Rx#: [id number] Oral 14 100 Output: Urine 750 260 200 Other: Voiding Method Urinal Urinal PHYSICAL EXAMINATION: GENERAL: The patient is alert and oriented x3, not in any acute distress. Well developed, well nourished. HEENT: Pupils are round and equally reacting to light. EOMI. No scleral icterus. No conjunctival pallor. Normocephalic, atraumatic. No pharyngeal erythema. No thyromegaly. CARDIOVASCULAR: S1 and S2 present. No murmurs, rubs, or gallops. PULMONARY: Chest is clear to auscultation, no wheezing or crackles. ABDOMEN: Soft, nontender, nondistended, normoactive bowel sounds. No palpable organomegaly. MUSCULOSKELETAL: No joint swelling or deformity. EXTREMITIES: No cyanosis, clubbing, or pedal edema. NEUROLOGICAL: Gross neurological examination did not reveal any focal deficits. SKIN: left foot ulcer as mentioned above Results CBC & Chem 7: 03/01/19 19:38 03/01/19 19:38 Labs: Abnormal Lab Results - Last 24 Hours (Table) 03/01/19 03/01/19 03/01/19 Range/Units 19:38 19:38 23:00 RBC 3.37 L (4.30-5.90) m/uL Hgb 10.0 L (13.0-17.5) gm/dL Hct 29.7 L (39.0-53.0) % RDW 15.8 H (11.5-15.5) % Lymphocytes # 0.8 L (1.0-4.8) k/uL Potassium 5.7 H (3.5-5.1) mmol/L BUN 30 H (9-20) mg/dL Glucose 196 H (74-99) mg/dL Alkaline Phosphatase 169 H (38-126) U/L Urine Protein 1+ H (Negative) Urine Glucose (UA) Trace H (Negative) Urine Blood Trace H (Negative) Urine Mucus Rare H (None) /hpf Microbiology - Last 24 Hours (Table) 03/02/19 00:30 Blood Culture Gram Stain - Preliminary Blood 03/02/19 00:30 Blood Culture - Final Blood Thrombosis Risk Factor Assmnt - Choose All That Apply Each Factor Represents 1 point: Abnormal pulmonary function (COPD), Heart failure (<1month), Obesity (BMI >25), Swollen legs (current) Other Risk Factors: Yes Each Risk Factor Represents 3 Points: Age 75 years or older Thrombosis Risk Factor Assessment Total Risk Factor Score: 7 Thrombosis Risk Factor Assessment Level: High Risk Assessment and Plan Plan: - generalized weakness: Generalized deconditioning along with chronic medical problems and his medications may be contributing to that, will obtain PT and OT consultation may need to go back to subacute rehabilitation -hyperkalemia secondary to lisinopril patient will be substituted with hydralazine and isosorbide mononitrate, lisinopril will be discontinued. --congestive heart failure chronic Systolic dysfunction as well as diastolic dysfunction without any acute exacerbation place she and is close to euvolemic a, Lasix will be resumed at his home dose -Osteomyelitis patient is on IV antibiotics which will be continued no increased redness or cellulitis at this time -type 2 diabetes mellitus -COPD without any acute exacerbation -Hyperlipidemia -Coronary artery disease -Due to prophylaxissubcutaneous heparin GI prophylaxis with Protonix
[2019-03-02 20:06] LABS: Glucose,Whole Blood 213 mg/dL (75-99)
[2019-03-02] MEDS: MIRTAZAPINE 15 MG TAB PO SCH (21:25)
[2019-03-02] MEDS: SPIRONOLACTONE 25 MG TAB PO SCH (21:25)
[2019-03-02 22:17] LABS: Glucose,Whole Blood 190 mg/dL (75-99)
[2019-03-02] MEDS: INSULIN ASPART (NovoLOG) 100 UNIT/ML VIAL SQ SCH (22:28)
[2019-03-03] MEDS: SODIUM CHLORIDE 0.9% 1,000 ML IV SCH (00:13)
[2019-03-03] MEDS: HEPARIN SODIUM,PORCINE 5,000 UNIT/ML 1 ML VIAL SQ SCH ×3 (00:13→15:05)
[2019-03-03] MEDS: oxyCODONE-APAP 5-325MG 1 EACH TAB PO PRN ×3 (03:33→17:27)
[2019-03-03 07:19] LABS: Glucose,Whole Blood 131 mg/dL (75-99)
[2019-03-03] MEDS: SPIRONOLACTONE 25 MG TAB PO SCH ×2 (08:11→21:25)
[2019-03-03] MEDS: ISOSORBIDE MONONITRATE ER 30 MG TAB.ER.24H PO SCH (08:11)
[2019-03-03] MEDS: ATORVASTATIN 80 MG TAB PO SCH (08:11)
[2019-03-03] MEDS: hydrALAZINE HCL 50 MG TAB PO SCH ×3 (08:11→21:25)
[2019-03-03] MEDS: FUROSEMIDE 80 MG TAB PO SCH ×2 (08:11→15:05)
[2019-03-03] MEDS: SERTRALINE 50 MG TAB PO SCH (08:11)
[2019-03-03] MEDS: ASPIRIN 81 MG PO SCH (08:11)
[2019-03-03] MEDS: PANTOPRAZOLE 40 MG TABLET PO SCH (08:11)
[2019-03-03] MEDS: METOPROLOL TARTRATE 12.5 MG TAB PO SCH ×2 (08:11→21:25)
[2019-03-03] MEDS: VANCOMYCIN 1,750 MG in SODIUM CHLORIDE 0.9% 500 ML 500 ML IVPB SCH ×2 (08:12→21:23)
[2019-03-03] MEDS: INSULIN ASPART (NovoLOG) 100 UNIT/ML VIAL SQ SCH ×4 (08:12→21:25)
[2019-03-03] MEDS: COLLAGENASE 250 UNIT/GM OINTMENT 30 GM TUBE TOPICAL SCH (08:18)
--- NOTE | 2019-03-03 08:30 | CONS ---
DATE OF CONSULTATION: 03/03/2019 This is a 74-year-old gentleman who came to the [facility] ER for wound on his left heel. His blood cultures were positive and the patient has been admitted for IV antibiotic and local wound care. This patient had an infected wound on his left heel. He had debridement of the left heel about 3 weeks ago. He has been in [facility] for local wound care and IV antibiotic. His blood culture is positive. Patient has history of diabetes, hypertension, coronary artery disease and has a pacemaker placed in the past. PHYSICAL EXAMINATION: Patient was seen in his room. NECK: Supple, trachea central. CHEST: Clear. ABDOMEN: Soft. FEMORALS: 1+. Patient has a wound on the left heel with some devitalized tissue present. Measurement is 5 x 4 cm. PLAN: Debridement of the wound and will use Santyl cream. I will discuss with Dr. Chavira for further management and Infectious Disease. I am going out of town for 5 days. MMODL / IJN: [id number] / LEONIE
--- NOTE | 2019-03-03 08:45 | PCN ---
PROCEDURE NOTE PREOPERATIVE DIAGNOSIS: Wound left heel, measurement is 5 x 4 cm with some devitalized tissue. OPERATION: Debridement of the wound down to subcutaneous tissue. This patient has history of wound debridement for infected wound left heel about 3 weeks ago. The patient went to [facility] and they were treating with local wound care. The patient came up with positive blood culture and some redness noted on the dorsal aspect of the foot. The left foot was prepped and draped in usual sterile manner. The patient has neuropathy and does not have much feeling. Using knife, we did remove the devitalized tissue. Some bleeding was noted, which was controlled. The wound was irrigated with saline. Santyl cream applied to the wound. PLAN: Continue with IV antibiotics and local wound care using Santyl. I will discuss with Dr. De La Paz. I am going out of town for 4 days, if patient needs any surgical intervention then patient will need to be consulted for surgical debridement if needed. MMODL / IJN: [id number] /
[2019-03-03 09:39] LABS: Calcium 8.7 mg/dL (8.4-10.2); Potassium 4.7 mmol/L (3.5-5.1)
[2019-03-03 09:55] LABS: Anisocytosis Slight; HCT 29.1 % (39.0-53.0); HGB 9.6 gm/dL (13.0-17.5); MCH 29.4 pg (25.0-35.0); MCHC 32.8 g/dL (31.0-37.0); MCV 89.7 fL (80.0-100.0); Mean Platelet Volume 8.6; Platelet Count 172 k/uL (150-450); RBC 3.25 m/uL (4.30-5.90); RDW 16.4 % (11.5-15.5); WBC 8.2 k/uL (3.8-10.6)
--- NOTE | 2019-03-03 10:25 | P.CONS ---
History of Present Illness - Reason for Consult Consult date: 03/03/19 Eval for cellulitis - History of Present Illness This is a 74-year-old male patient well known to ID service as [facility] for ulceration to the left heel of unclear etiology with no known trauma. Patient does have history of prior diabetic foot ulceration, ischemic cardiomyopathy, peripheral vascular disease. 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 Patient was at [facility] for 21 days and then was discharged home. His PICC line who has been subsequently removed about one week ago. He does have [facility] in place. Patient presented to [facility] emergency center yesterday by EMS due to lower extremity swelling and pain. Patient was afebrile, white count 8.9, creatinine 0.94, blood sugar 196, alkaline phosphatase 169, urinalysis was clear with nitrate and leukoesterase negative. Blood culture is positive for staph aureus. Chest x-ray reveals small left pleural effusion. Patient was started on vancomycin and placed on the MedSur floor. Patient has been seen by Dr. Barth and he did a bedside debridement of the wound left heel down to subcutaneous tissue. Local wound care is in the form of medihoney. Review of Systems Constitutional: Reports fatigue, Reports lethargy, Reports malaise, Reports poor appetite, Reports weakness Ears, nose, mouth and throat: Denies dysphagia, Denies nasal congestion, Denies nasal discharge, Denies vertigo Cardiovascular: Reports edema, Reports leg edema, Denies chest pain, Denies dyspnea on exertion Respiratory: Denies cough, Denies cough with sputum, Denies dyspnea, Denies he moptysis, Denies home oxygen, Denies wheezing Gastrointestinal: Denies abdominal pain, Denies loss of appetite, Denies nausea, Denies vomiting Genitourinary: Denies dysuria, Denies urinary retention Musculoskeletal: Reports muscle weakness, Denies frequent falls, Denies gait dysfunction Integumentary: Reports wounds, Denies pruritus, Denies rash Neurological: Denies aphasia, Denies change in mentation, Denies change in speech Psychiatric: Denies anxiety, Denies depression Endocrine: Denies fatigue, Denies weight change Past Medical History Past Medical History: Heart Failure, COPD, Diabetes Mellitus, Hyperlipidemia, Hypertension, Myocardial Infarction ([place]), Rheumatoid Arthritis ([place]) Additional Past Medical History / Comment(s): Anemia, Fall December 2018, Left heel osteomylitis Last Myocardial Infarction Date:: 2010 History of Any Multi-Drug Resistant Organisms: MRSA, VRE Year Discovered:: 12/08/15 MDRO Source:: RIGHT FOOT MRSA AND VRE Past Surgical History: Appendectomy, Cholecystectomy, Heart Catheterization With Stent, Hernia Repair, Tonsillectomy Additional Past Surgical History / Comment(s): cervical fusion laminactomy , left carpal tunnel release, cataract left eye, HEART STENT X2, 10-16-15 PTBA /RT LEG STENT, rt hand x2 surgery, umb hernia, past picc line, AICD [address] Bhatia Past Anesthesia/Blood Transfusion Reactions: Postoperative Nausea & Vomiting (PONV) Additional Past Anesthesia/Blood Transfusion Reaction / Comm: .PT STATED AFTER HAND SX HAD DIFFICULTY URINATING AND PAIN MEDS CONSTIPATE HIM. Date of Last Stent Placement:: 12/2013 Type of Cardiac Device: AICD Device Placement Date:: 2014 Past Psychological History: No Psychological Hx Reported Additional Psychological History / Comment(s): PT LIVES AT HOME WITH HIS (IS CAREGIVER TO HIS ). 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 She is currently smoking half a pack per day. Denies current alcohol use. No travel. Was in the [place] in his youth. No animals at home Smoking Status: Current every day smoker Past Alcohol Use History: None Reported Additional Past Alcohol Use History / Comment(s): PT STARTED SMOKING AT AGE 14 WORKED UP TO 1.5 PPD BUT HAS CUT DOWN TO 1/2 PPD. He denies any marijuana or illicit drug use. He denies any alcohol use. 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 No pets in the home. Past Drug Use History: None Reported - Past Family History Mother Additional Family Medical History / Comment(s): PT STATED MOM WAS HEALTHY BUT IN OLDER AGE GOT PNE- FROM COMPLICATIONS OF PNE. Father Family Medical History: Osteoarthritis (OA) Additional Family Medical History / Comment(s): ULCERS, HEART PROBLEMS HAD BYPASS,BACK SURGURY Medications and Allergies Home Medications Medication Instructions Recorded Confirmed Type Aspirin [Adult Low Dose Aspirin EC] 81 mg PO DAILY 04/10/16 03/02/19 History Atorvastatin [Lipitor] 80 mg PO DAILY 08/06/16 03/02/19 History metFORMIN HCL [Glucophage] 1,000 mg PO BID 08/28/17 03/02/19 History Lisinopril [Zestril] 2.5 mg PO DAILY #90 tab 08/27/18 03/02/19 Rx Nitroglycerin Sl Tabs [Nitrostat] 0.4 mg SL Q5M PRN 11/02/18 03/02/19 History Sertraline [Zoloft] 50 mg PO DAILY 11/02/18 03/02/19 History Spironolactone [Aldactone] 25 mg PO BID #60 tab 11/04/18 03/02/19 Rx Furosemide [Lasix] 80 mg PO BID@0900,1600 tab 11/27/18 03/02/19 Rx HYDROcodone/APAP 7.5-325MG [[place] 1 tab PO Q6HR PRN #12 tab 01/25/19 03/02/19 Rx 7.5-325] Metoprolol Tartrate [Lopressor] 12.5 mg PO BID tab 01/25/19 03/02/19 Rx Mirtazapine [Remeron] 15 mg PO HS #3 tablet 01/25/19 03/02/19 Rx Allergies Allergy/AdvReac Type Severity Reaction Status Date / Time Penicillins Allergy Rash/Hives Verified 03/02/19 08:45 gabapentin [From Neurontin] AdvReac Nausea Verified 03/02/19 08:45 Physical Exam Vitals: Vital Signs Temp Pulse Resp BP Pulse Ox 03/03/19 05:20 99.1 F 71 20 101/61 97 03/02/19 20:16 70 03/02/19 20:00 99.3 F 70 20 125/72 98 03/02/19 16:15 63 18 03/02/19 15:00 97.1 F L 63 18 104/61 95 Intake and Output 03/02/19 03/03/19 03/03/19 22:59 06:59 14:59 Intake Total 100 660 Output Total 900 Balance -800 660 Intake: Intake, IV Titration 660 Amount Sodium Chloride 0.9% 1, 160 000 ml @ 20 mls/hr IV . Q24H [facility] Rx#:[id number] Vancomycin 1,750 mg In 500 Sodium Chloride 0.9% 500 ml 500 ml @ 167 mls/hr IVPB Q12H [facility] Rx#: [id number] Oral 100 Output: Urine 900 Other: Voiding Method Urinal Urinal This is a 74-year-old male sitting on the edge of his bed and appears to be comfortable. Patient has multiple generalized complaints HEENT: Anicteric conjunctiva are pink and moist nasal mucosa grossly intact without significant lesions, there is no thrush. Poor dentition Neck: The neck is supple without significant lymphadenopathy or thyromegaly. Lungs: Symmetric air entry no wheezes no kenny dullness or egophony Heart: Irregular without new murmur click or rub PMI is nondisplaced Abdomen: Obese, Positive bowel sounds soft and nontender without palpable masses or organomegaly. There was no guarding or rebound. Extremities: The upper extremities have excellent pulses they are symmetric, no significant petechiae or telangiectasia. No splinter hemorrhages were noted. Lower extremities evidence of the chronic lower extremity edema. Dressings were not removed as patient just went underwent surgical debridement. Neuro: Awake alert oriented to person place and time. There are no acute new gross focal sensory motor deficits. Results Results: Laboratory Results WBC 8.2 k/uL (3.8-10.6) 03/03/19 08:49 RBC 3.25 m/uL (4.30-5.90) L 03/03/19 08:49 Hgb 9.6 gm/dL (13.0-17.5) L 03/03/19 08:49 Hct 29.1 % (39.0-53.0) L 03/03/19 08:49 MCV 89.7 fL (80.0-100.0) 03/03/19 08:49 MCH 29.4 pg (25.0-35.0) 03/03/19 08:49 MCHC 32.8 g/dL (31.0-37.0) 03/03/19 08:49 RDW 16.4 % (11.5-15.5) H 03/03/19 08:49 Plt Count 172 k/uL (150-450) 03/03/19 08:49 Neutrophils % 78 % 03/01/19 19:38 Lymphocytes % 9 % 03/01/19 19:38 Monocytes % 6 % 03/01/19 19:38 Eosinophils % 5 % 03/01/19 19:38 Basophils % 0 % 03/01/19 19:38 Neutrophils # 7.0 k/uL (1.3-7.7) 03/01/19 19:38 Lymphocytes # 0.8 k/uL (1.0-4.8) L 03/01/19 19:38 Monocytes # 0.5 k/uL (0-1.0) 03/01/19 19:38 Eosinophils # 0.4 k/uL (0-0.7) 03/01/19 19:38 Basophils # 0.0 k/uL (0-0.2) 03/01/19 19:38 Anisocytosis Slight 03/03/19 08:49 PT 10.4 sec (9.0-12.0) 03/01/19 19:38 INR 1.0 (<1.2) 03/01/19 19:38 APTT 28.0 sec (22.0-30.0) 03/01/19 19:38 Sodium 136 mmol/L (137-145) L 03/03/19 08:49 Potassium 4.7 mmol/L (3.5-5.1) 03/03/19 08:49 Chloride 104 mmol/L (98-107) 03/03/19 08:49 Carbon Dioxide 25 mmol/L (22-30) 03/03/19 08:49 Anion Gap 7 mmol/L 03/03/19 08:49 BUN 27 mg/dL (9-20) H 03/03/19 08:49 Creatinine 1.17 mg/dL (0.66-1.25) 03/03/19 08:49 Est GFR (CKD-EPI)AfAm 70 (>60 ml/min/1.73 sqM) 03/03/19 08:49 Est GFR (CKD-EPI)NonAf 61 (>60 ml/min/1.73 sqM) 03/03/19 08:49 Glucose 180 mg/dL (74-99) H 03/03/19 08:49 POC Glucose (mg/dL) 131 mg/dL (75-99) H 03/03/19 07:15 POC Glu Insurance Risk Analyst ID Leena Sheikh 03/03/19 07:15 Plasma Lactic Acid Steve 1.3 mmol/L (0.7-2.0) 03/01/19 19:38 Calcium 8.7 mg/dL (8.4-10.2) 03/03/19 08:49 Magnesium 2.0 mg/dL (1.6-2.3) 03/01/19 19:38 Total Bilirubin 0.9 mg/dL (0.2-1.3) 03/01/19 19:38 AST 40 U/L (17-59) 03/01/19 19:38 ALT 67 U/L (21-72) 03/01/19 19:38 Alkaline Phosphatase 169 U/L (38-126) H 03/01/19 19:38 Troponin I <0.012 ng/mL (0.000-0.034) 03/01/19 19:38 NT-Pro-B Natriuret Pep 2660 pg/mL 03/01/19 19:38 Total Protein 7.1 g/dL (6.3-8.2) 03/01/19 19:38 Albumin 3.5 g/dL (3.5-5.0) 03/01/19 19:38 TSH 1.450 mIU/L (0.465-4.680) 03/01/19 19:38 Urine Color Yellow 03/01/19 23:00 Urine Appearance Clear (Clear) 03/01/19 23:00 Urine pH 5.5 (5.0-8.0) 03/01/19 23:00 Ur Specific [place] 1.022 (1.001-1.035) 03/01/19 23:00 Urine Protein 1+ (Negative) H 03/01/19 23:00 Urine Glucose (UA) Trace (Negative) H 03/01/19 23:00 Urine Ketones Negative (Negative) 03/01/19 23:00 Urine Blood Trace (Negative) H 03/01/19 23:00 Urine Nitrite Negative (Negative) 03/01/19 23:00 Urine Bilirubin Negative (Negative) 03/01/19 23:00 Urine Urobilinogen 2.0 mg/dL (<2.0) 03/01/19 23:00 Ur Leukocyte Esterase Negative (Negative) 03/01/19 23:00 Urine RBC 1 /hpf (0-5) 03/01/19 23:00 Urine WBC 1 /hpf (0-5) 03/01/19 23:00 Ur Squamous Epith Cells <1 /hpf (0-4) 03/01/19 23:00 Urine Mucus Rare /hpf (None) H 03/01/19 23:00 CBC & Chem 7: 03/03/19 08:49 03/03/19 08:49 Labs: Abnormal Lab Results - Last 24 Hours (Table) 03/02/19 03/02/19 03/03/19 Range/Units 20:04 22:14 07:15 POC Glucose (mg/dL) 213 H 190 H 131 H (75-99) mg/dL Microbiology - Last 24 Hours (Table) 03/02/19 00:30 Blood Culture Gram Stain - Preliminary Blood Blood Culture - Preliminary Staphylococcus aureus 03/02/19 00:30 Blood Culture - Final Blood Assessment and Plan Plan: This is a 74-year-old male patient well known to ID service as he has been recently treated with IV meropenem for osteomyelitis of the left calcaneus. Patient did complete his course of IV antibiotics. Patient is currently on vancomycin. Blood culture is positive for staph aureus. Most recent wound culture from January 21 was positive for MSSA, Enterococcus faecalis, coag-negative staph and diphtheroids species. Patient is status post debridement done by Dr. Barth. [facility] local wound care has been ordered. Patient is currently on vancomycin which will be continued. Continue supportive care. Further recommendations as patient progresses. The above dictated assessment and findings were discussed with Dr. Richards. The impression and plan of care have been directed as dictated. Jadyn Chase nurse practitioner acting as scribe for Dr. Richards.
[2019-03-03 12:00] LABS: Glucose,Whole Blood 184 mg/dL (75-99)
--- NOTE | 2019-03-03 12:48 | CDI ---
Documentation Clarification Form Date: 03/03/2019 12:34:06 PM From: Jamila Purdy RN, CCDS Admit Date: 03/03/2019 7:16:00 AM Patient Name: Karlos Mathews Visit Number: [id number] ATTENTION: The Clinical Documentation Specialists (CDI) and [facility] Coding Staff appreciate your assistance in clarifying documentation. Please respond to the clarification below the line at the bottom and electronically sign. The CDI & [facility] Coding staff will review the response and follow-up if needed. Please note: Queries are made part of the Legal Health Record. If you have any questions, please contact the author of this message via ITS. Dr. Duarte Barth Per your progress notes/operative note, a debridement was performed on 03/03 and requires further specificity. History/Risk Factors: DM, CHF, CRF, COPD Clinical Indicators: 03/02 H&P: "patient is found to have "I diabetic foot ulcer appears to be stage 3-4 no exposed bone." 03/03 Procedure note: "The patient has neuropathy and does not have much feeling. Using knife, we did remove the devitalized tissue. Some bleeding was noted, which was controlled. The wound was irrigated with saline. Santyl cream applied to the wound." Treatment: Debridement of the wound down to the subcutaneous tissue [facility] local wound care IV Vancomyacin Five elements required for accurate and compliant documentation of a debridement: 1. Technique used (e.g., excisional, excised, cutting, etc.) 2. Instrument(s) used (e.g., scalpel, curette, etc.) 3. Nature of the tissue removed (e.g., necrotic, devitalized tissues, non- viable tissue, etc.) 4. Appearance and size of the wound (e.g., down to fresh bleeding tissue, 7cm x 10cm, etc.) 5. Depth of the debridement* (e.g., skin, subcutaneous tissue, fascia, muscle, bone, etc.) In order to capture the severity of condition and code the appropriate procedure; could you please document the following: Excisional debridement (the removal of necrotic, devitalized tissue or slough by means of cutting away of tissue) Non-excisional debridement (the removal of necrotic, devitalized tissue or slough by means of flushing, brushing, or washing. (Irrigation) Other; please specify Unable to determine (Last Revision: October 2017) MTDD
--- NOTE | 2019-03-03 16:16 | P.PN ---
Subjective 1-year-old admitted with the diabetic foot ulcer patient underwent debridement. Patient is already on vancomycin patient is bacteremic with MRSA again on the B blood cultures today and tomorrow infectious disease will evaluate the patient. Patient is on vancomycin patient had debridement of the left heel down to subcutaneous tissue, patient was treated with enterococcus until recently for us, let us of the left calcaneus. Constitutional: Denied any fatigue denied any fever. Cardio vascular: denied any chest pain, palpitations Gastrointestinal denied any nausea vomiting Pulmonary: Denied any shortness of breath cough Neurologic denied any new focal deficits All inpatient medications were reviewed and appropriate changes in these medicat ions as dictated in the interval history and assessment and plan. Objective - Vital Signs Vital signs: Vital Signs Temp 97.5 F L 03/03/19 14:19 Pulse 63 03/03/19 14:19 Resp 18 03/03/19 14:19 BP 94/56 03/03/19 14:19 Pulse Ox 98 03/03/19 14:19 Intake & Output 03/02/19 03/03/19 03/03/19 18:59 06:59 18:59 Intake Total 200 660 Output Total 460 700 Balance -260 -40 Intake: Intake, IV Titration 660 Amount Sodium Chloride 0.9% 1, 160 000 ml @ 20 mls/hr IV . Q24H [facility] Rx#:[id number] Vancomycin 1,750 mg In 500 Sodium Chloride 0.9% 500 ml 500 ml @ 167 mls/hr IVPB Q12H [facility] Rx#: [id number] Oral 200 Output: Urine 460 700 Other: Voiding Method Urinal Urinal Urinal # Voids 2 - Exam PHYSICAL EXAMINATION: GENERAL: The patient is alert and oriented x3, not in any acute distress. Well developed, well nourished. HEENT: Pupils are round and equally reacting to light. EOMI. No scleral icterus. No conjunctival pallor. Normocephalic, atraumatic. No pharyngeal erythema. No thyromegaly. CARDIOVASCULAR: S1 and S2 present. No murmurs, rubs, or gallops. PULMONARY: Chest is clear to auscultation, no wheezing or crackles. ABDOMEN: Soft, nontender, nondistended, normoactive bowel sounds. No palpable organomegaly. MUSCULOSKELETAL: No joint swelling or deformity. EXTREMITIES: No cyanosis, clubbing, or pedal edema. NEUROLOGICAL: Gross neurological examination did not reveal any focal deficits. SKIN: left foot ulcer as mentioned above - Labs CBC & Chem 7: 03/03/19 08:49 03/03/19 08:49 Labs: Abnormal Lab Results - Last 24 Hours (Table) 03/02/19 03/02/19 03/03/19 Range/Units 20:04 22:14 07:15 RBC (4.30-5.90) m/uL Hgb (13.0-17.5) gm/dL Hct (39.0-53.0) % RDW (11.5-15.5) % Sodium (137-145) mmol/L BUN (9-20) mg/dL Glucose (74-99) mg/dL POC Glucose (mg/dL) 213 H 190 H 131 H (75-99) mg/dL 03/03/19 03/03/19 03/03/19 Range/Units 08:49 08:49 11:57 RBC 3.25 L (4.30-5.90) m/uL Hgb 9.6 L (13.0-17.5) gm/dL Hct 29.1 L (39.0-53.0) % RDW 16.4 H (11.5-15.5) % Sodium 136 L (137-145) mmol/L BUN 27 H (9-20) mg/dL Glucose 180 H (74-99) mg/dL POC Glucose (mg/dL) 184 H (75-99) mg/dL Microbiology - Last 24 Hours (Table) 03/02/19 00:30 Blood Culture Gram Stain - Preliminary Blood Blood Culture - Preliminary Staphylococcus aureus 03/02/19 00:30 Blood Culture - Final Blood Assessment and Plan Plan: - generalized weakness: Generalized deconditioning along with chronic medical problems and his medications may be contributing to that, will obtain PT and OT consultation may need to go back to subacute rehabilitation -hyperkalemia secondary to lisinopril patient will be substituted with hydralazine and isosorbide mononitrate, lisinopril was discontinued. --congestive heart failure chronic Systolic dysfunction as well as diastolic dysfunction without any acute exacerbation place she and is close to euvolemic a, Lasix will be resumed at his home dose -Osteomyelitis of the left calcaneus patient is on IV antibiotics my had hematemesis same Enterococcus faecalis in the past because of which patient was on meropenem presently on vancomycin patient is bacteremic with the MRSA and now. Repeat blood cultures will be obtained -type 2 diabetes mellitus -COPD without any acute exacerbation -Hyperlipidemia -Coronary artery disease -Due to prophylaxissubcutaneous heparin GI prophylaxis with Protonix
[2019-03-03 17:19] LABS: Glucose,Whole Blood 109 mg/dL (75-99)
[2019-03-03 20:34] LABS: Glucose,Whole Blood 154 mg/dL (75-99)
[2019-03-03] MEDS: MIRTAZAPINE 15 MG TAB PO SCH (21:25)
--- NOTE | 2019-03-03 23:40 | P.CON ---
Consult Note - . Consult date: 03/03/19 Assessment/Plan:: This is a 74-year-old male patient well known to ID service as he is [facility] most recently for ulceration to the left heel of unclear etiology with no known trauma. Patient does have history of pr ior diabetic foot ulceration, ischemic cardiomyopathy, peripheral vascular disease. 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 Patient was at [facility] for 21 days and then was discharged home. His PICC line who has been subsequently removed about one week ago. He does have [facility] in place. Patient presented to [facility] emergency center yesterday by EMS due to lower extremity swelling and pain. Patient was afebrile, white count 8.9, creatinine 0.94, blood sugar 196, alkaline phosphatase 169, urinalysis was clear with nitrate and leukoesterase negative. Blood culture is positive for staph aureus. Chest x-ray reveals small left pleural effusion. Patient was started on vancomycin and placed on the MedSur floor. Patient has been seen by Dr. Barth and he did a bedside debridement of the wound left heel down to subcutaneous tissue. Local wound care is in the form of Santyl. Please see the consult note as dictated by nurse practitioner Mrs. Jadyn Chase. 74-year-old male with a long-standing history of multiple medical troubles includes diabetes mellitus type 2 with ischemic cardiomyopathy is presenting with ongoing difficulties to the left heel with a nonhealing ulceration. Was seen by vascular surgery today where a debridement was performed and was brought in the hospital. Currently receiving antibiotic therapy with vancomycin cultures are pending. The patient had debridement today we'll have to consider further imaging studies such as a bone scan to that with the possibility of deeper infection since osteomyelitis is highly likely at this time. He is somewhat desperate to go home to care for his elderly . We do have a positive blood culture and will need follow-up blood culture, hopefully negative so a catheter can be placed and he can institute an outpatient course of antibiotic therapy. I agree with evaluation, assessment and plan as dictated by nurse practitioner Mrs. Jadyn Chase.
[2019-03-04] MEDS: HEPARIN SODIUM,PORCINE 5,000 UNIT/ML 1 ML VIAL SQ SCH ×4 (00:54→23:41)
[2019-03-04] MEDS: SODIUM CHLORIDE 0.9% 1,000 ML IV SCH ×2 (00:55→22:55)
[2019-03-04] MEDS: oxyCODONE-APAP 5-325MG 1 EACH TAB PO PRN ×3 (02:05→21:33)
[2019-03-04 07:12] LABS: Glucose,Whole Blood 127 mg/dL (75-99)
[2019-03-04] MEDS: INSULIN ASPART (NovoLOG) 100 UNIT/ML VIAL SQ SCH ×4 (07:30→22:17)
[2019-03-04] MEDS ORDERED: VANCOMYCIN TROUGH DUE 1 EACH MISC MISCELLANE ONE (08:00)
[2019-03-04] MEDS: SERTRALINE 50 MG TAB PO SCH (08:12)
[2019-03-04] MEDS: SPIRONOLACTONE 25 MG TAB PO SCH ×2 (08:12→21:33)
[2019-03-04] MEDS: PANTOPRAZOLE 40 MG TABLET PO SCH (08:12)
[2019-03-04] MEDS: METOPROLOL TARTRATE 12.5 MG TAB PO SCH ×2 (08:12→21:33)
[2019-03-04] MEDS: ATORVASTATIN 80 MG TAB PO SCH (08:13)
[2019-03-04] MEDS: FUROSEMIDE 80 MG TAB PO SCH ×2 (08:13→15:28)
[2019-03-04] MEDS: hydrALAZINE HCL 50 MG TAB PO SCH ×3 (08:13→21:33)
[2019-03-04] MEDS: ASPIRIN 81 MG PO SCH (08:13)
[2019-03-04] MEDS: ISOSORBIDE MONONITRATE ER 30 MG TAB.ER.24H PO SCH (08:13)
[2019-03-04] MEDS: VANCOMYCIN 1,750 MG in SODIUM CHLORIDE 0.9% 500 ML 500 ML IVPB SCH (10:36)
[2019-03-04] MEDS: COLLAGENASE 250 UNIT/GM OINTMENT 30 GM TUBE TOPICAL SCH (10:43)
[2019-03-04] MEDS ORDERED: VANCOMYCIN IV PER PHARMACY 1 EACH MISC MISCELLANE PRN (11:06)
[2019-03-04] MEDS ORDERED: BISACODYL 10 MG SUPP RECTAL PRN (11:34)
[2019-03-04 11:48] LABS: Glucose,Whole Blood 214 mg/dL (75-99)
[2019-03-04] MEDS: BISACODYL 5 MG TABLET.DR PO PRN (12:20)
[2019-03-04 14:21] VITALS: BMI 34.8
--- NOTE | 2019-03-04 16:19 | P.PN ---
Subjective Progress Note Date: 03/04/19 Principal diagnosis: 74 year-old male admitted with the diabetic foot ulcer. patient underwent debridement. Patient is already on vancomycin patient is bacteremic with MRSA again on the blood cultures today and tomorrow infectious disease will evaluate the patient. Patient is on vancomycin patient had debridement of the left heel down to subcutaneous tissue. 03/04/2019 Patient is sitting up in bed in no acute distress. Patient was having his left foot and leg redressed her Dr. Barth's recommendations. Patient states that he is having some constipation as he takes a lot of pain medications. Patient is requesting a stool softener or laxative. Discussed with the patient about going to rehab for continuous IV antibiotic therapy after discharge the patient states that he does not want to go to a rehab facility. Case management and social scientist following. Patient denies any shortness of breath, chest pain, or palpitations at this time. Patient is tolerating diet with no complaints of nausea or vomiting at this time. Guarded prognosis. Objective - Vital Signs Vital signs: Vital Signs Temp 98.6 F 03/04/19 12:38 Pulse 65 03/04/19 12:38 Resp 18 03/04/19 12:38 BP 99/61 03/04/19 12:38 Pulse Ox 96 03/04/19 12:38 Intake & Output 03/03/19 03/04/19 03/04/19 18:59 06:59 18:59 Intake Total 860 Balance 860 Weight 113.398 kg Intake: Intake, IV Titration 660 Amount Sodium Chloride 0.9% 1, 160 000 ml @ 20 mls/hr IV . Q24H [facility] Rx#:[id number] Vancomycin 1,750 mg In 500 Sodium Chloride 0.9% 500 ml 500 ml @ 167 mls/hr IVPB Q12H [facility] Rx#: [id number] Oral 200 Other: Voiding Method Urinal Urinal Urinal # Voids 2 2 4 # Bowel Movements 0 - Exam GENERAL: The patient is alert and oriented x3, not in any acute distress. Well developed, well nourished. HEENT: Pupils are round and equally reacting to light. EOMI. No scleral icterus. No conjunctival pallor. Normocephalic, atraumatic. No pharyngeal erythema. No thyromegaly. CARDIOVASCULAR: S1 and S2 present. No murmurs, rubs, or gallops. PULMONARY: Chest is clear to auscultation, no wheezing or crackles. ABDOMEN: Soft, nontender, nondistended, obese, normoactive bowel sounds. No palpable organomegaly. MUSCULOSKELETAL: No joint swelling or deformity. EXTREMITIES: No cyanosis, clubbing, or pedal edema. NEUROLOGICAL: Gross neurological examination did not reveal any focal deficits. SKIN: left foot ulcer to the left heel - Labs CBC & Chem 7: 03/03/19 08:49 03/04/19 08:28 Labs: Abnormal Lab Results - Last 24 Hours (Table) 03/03/19 03/03/19 03/04/19 Range/Units 17:07 20:20 07:11 Creatinine (0.66-1.25) mg/dL POC Glucose (mg/dL) 109 H 154 H 127 H (75-99) mg/dL Vancomycin Trough ug/mL 03/04/19 03/04/19 03/04/19 Range/Units 08:28 08:28 11:46 Creatinine 1.27 H (0.66-1.25) mg/dL POC Glucose (mg/dL) 214 H (75-99) mg/dL Vancomycin Trough 34.1 H* ug/mL Microbiology - Last 24 Hours (Table) 03/02/19 18:43 Blood Culture Gram Stain - Final Blood Blood Culture - Final Staphylococcus aureus 03/02/19 18:43 Blood Culture - Final Blood Assessment and Plan Assessment: generalized weakness: Generalized deconditioning along with chronic medical pro blems and his medications may be contributing to that, will obtain PT and OT consultation may need to go back to subacute rehabilitation. Patient refusing rehab facility. -hyperkalemia secondary to lisinopril patient will be substituted with hydralazine and isosorbide mononitrate, lisinopril was discontinued. Potassium is 4.7 --congestive heart failure chronic Systolic dysfunction as well as diastolic dysfunction without any acute exacerbation patient to euvolemic, Lasix will be resumed at his home dose -Osteomyelitis of the left calcaneus patient is on IV antibiotics my had hematemesis same Enterococcus faecalis in the past because of which patient was on meropenem presently on vancomycin patient is bacteremic with the MRSA now. Repeat blood cultures will be obtained -type 2 diabetes mellitus -COPD without any acute exacerbation -Hyperlipidemia -Coronary artery disease -DVT prophylaxis subcutaneous heparin GI prophylaxis with Protonix Recommendations and discussion: Continue current medication regimen and symptomatic treatment. Will continue to monitor closely. Patient will continue on IV antibiotic therapy. Infectious diseases consulted. Guarded prognosis. Further recommendations to follow.
[2019-03-04 17:05] LABS: Glucose,Whole Blood 204 mg/dL (75-99)
[2019-03-04 20:08] LABS: Glucose,Whole Blood 166 mg/dL (75-99)
[2019-03-04] MEDS: MIRTAZAPINE 15 MG TAB PO SCH (21:33)
--- NOTE | 2019-03-05 07:07 | P.PN ---
Subjective Progress Note Date: 03/04/19 This is a 74-year-old male patient well known to ID service as [facility] for ulceration to the left heel of unclear etiology with no known trauma. Patient does have history of prior diabetic foot ulceration, ischemic cardiomyopathy, peripheral vascular disease. 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 Patient was at [facility] for 21 days and then was discharged home. His PICC line who has been subsequently removed about one week ago. He does have [facility] in place. Patient presented to [facility] emergency center yesterday by EMS due to lower extremity swelling and pain. Patient was afebrile, white count 8.9, creatinine 0.94, blood sugar 196, alkaline phosphatase 169, urinalysis was clear with nitrate and leukoesterase negative. Blood culture is positive for staph aureus. Chest x-ray reveals small left pleural effusion. Patient was started on vancomycin and placed on the [facility] floor. Patient has been seen by Dr. Barth and he did a bedside debridement of the wound left heel down to subcutaneous tissue. Local wound care is in the form of medihoney. 03/04/2019 patient understands serious nature of infection with the bacteremia, is worried about his spouse, due to her debility. Objective - Vital Signs Vital signs: Vital Signs Temp 99.0 F 03/05/19 05:00 Pulse 77 03/05/19 05:00 Resp 18 03/05/19 05:00 BP 124/71 03/05/19 05:00 Pulse Ox 95 03/05/19 05:00 Intake & Output 03/04/19 03/04/19 03/05/19 06:59 18:59 06:59 Intake Total 860 300 Balance 860 300 Weight 113.398 kg 112.5 kg Intake: Intake, IV Titration 660 Amount Sodium Chloride 0.9% 1, 160 000 ml @ 20 mls/hr IV . Q24H [facility] Rx#:[id number] Vancomycin 1,750 mg In 500 Sodium Chloride 0.9% 500 ml 500 ml @ 167 mls/hr IVPB Q12H [facility] Rx#: [id number] Oral 200 300 Other: Voiding Method Urinal Urinal Urinal # Voids 2 6 10 # Bowel Movements 1 2 - Exam This is a 74-year-old male sitting on the edge of his bed and appears to be comfortable. Patient has multiple generalized complaints HEENT: Anicteric conjunctiva are pink and moist nasal mucosa grossly intact without significant lesions, there is no thrush. Poor dentition Neck: The neck is supple without significant lymphadenopathy or thyromegaly. Lungs: Symmetric air entry no wheezes no kenny dullness or egophony Heart: Irregular without new murmur click or rub PMI is nondisplaced Abdomen: Obese, Positive bowel sounds soft and nontender without palpable masses or organomegaly. There was no guarding or rebound. Extremities: The upper extremities have excellent pulses they are symmetric, no significant petechiae or telangiectasia. No splinter hemorrhages were noted. Lower extremities evidence of the chronic lower extremity edema. The left heel reveals that the extensive necrotic ulceration status post debridement, with time will need further extensive debridement Neuro: Awake alert oriented to person place and time. - Labs CBC & Chem 7: 03/03/19 08:49 03/04/19 08:28 Labs: Abnormal Lab Results - Last 24 Hours (Table) 03/04/19 03/04/19 03/04/19 Range/Units 07:11 08:28 08:28 Creatinine 1.27 H (0.66-1.25) mg/dL POC Glucose (mg/dL) 127 H (75-99) mg/dL Vancomycin Trough 34.1 H* ug/mL 03/04/19 03/04/19 03/04/19 Range/Units 11:46 17:00 20:06 Creatinine (0.66-1.25) mg/dL POC Glucose (mg/dL) 214 H 204 H 166 H (75-99) mg/dL Vancomycin Trough ug/mL Microbiology - Last 24 Hours (Table) 03/02/19 00:30 Blood Culture Gram Stain - Final Blood Blood Culture - Final Staphylococcus aureus 03/03/19 14:56 Blood Culture - Preliminary Blood No Growth after 24 hours 03/02/19 18:43 Blood Culture Gram Stain - Final Blood Blood Culture - Final Staphylococcus aureus Laboratory Results WBC 8.2 k/uL (3.8-10.6) 03/03/19 08:49 RBC 3.25 m/uL (4.30-5.90) L 03/03/19 08:49 Hgb 9.6 gm/dL (13.0-17.5) L 03/03/19 08:49 Hct 29.1 % (39.0-53.0) L 03/03/19 08:49 MCV 89.7 fL (80.0-100.0) 03/03/19 08:49 MCH 29.4 pg (25.0-35.0) 03/03/19 08:49 MCHC 32.8 g/dL (31.0-37.0) 03/03/19 08:49 RDW 16.4 % (11.5-15.5) H 03/03/19 08:49 Plt Count 172 k/uL (150-450) 03/03/19 08:49 Neutrophils % 78 % 03/01/19 19:38 Lymphocytes % 9 % 03/01/19 19:38 Monocytes % 6 % 03/01/19 19:38 Eosinophils % 5 % 03/01/19 19:38 Basophils % 0 % 03/01/19 19:38 Neutrophils # 7.0 k/uL (1.3-7.7) 03/01/19 19:38 Lymphocytes # 0.8 k/uL (1.0-4.8) L 03/01/19 19:38 Monocytes # 0.5 k/uL (0-1.0) 03/01/19 19:38 Eosinophils # 0.4 k/uL (0-0.7) 03/01/19 19:38 Basophils # 0.0 k/uL (0-0.2) 03/01/19 19:38 Anisocytosis Slight 03/03/19 08:49 PT 10.4 sec (9.0-12.0) 03/01/19 19:38 INR 1.0 (<1.2) 03/01/19 19:38 APTT 28.0 sec (22.0-30.0) 03/01/19 19:38 Sodium 136 mmol/L (137-145) L 03/03/19 08:49 Potassium 4.7 mmol/L (3.5-5.1) 03/03/19 08:49 Chloride 104 mmol/L (98-107) 03/03/19 08:49 Carbon Dioxide 25 mmol/L (22-30) 03/03/19 08:49 Anion Gap 7 mmol/L 03/03/19 08:49 BUN 27 mg/dL (9-20) H 03/03/19 08:49 Creatinine 1.27 mg/dL (0.66-1.25) H 03/04/19 08:28 Est GFR (CKD-EPI)AfAm 64 (>60 ml/min/1.73 sqM) 03/04/19 08:28 Est GFR (CKD-EPI)NonAf 55 (>60 ml/min/1.73 sqM) 03/04/19 08:28 Glucose 180 mg/dL (74-99) H 03/03/19 08:49 POC Glucose (mg/dL) 166 mg/dL (75-99) H 03/04/19 20:06 POC Glu Ginner ID Cinda Go 03/04/19 20:06 Plasma Lactic Acid Steve 1.3 mmol/L (0.7-2.0) 03/01/19 19:38 Calcium 8.7 mg/dL (8.4-10.2) 03/03/19 08:49 Magnesium 2.0 mg/dL (1.6-2.3) 03/01/19 19:38 Total Bilirubin 0.9 mg/dL (0.2-1.3) 03/01/19 19:38 AST 40 U/L (17-59) 03/01/19 19:38 ALT 67 U/L (21-72) 03/01/19 19:38 Alkaline Phosphatase 169 U/L (38-126) H 03/01/19 19:38 Troponin I <0.012 ng/mL (0.000-0.034) 03/01/19 19:38 NT-Pro-B Natriuret Pep 2660 pg/mL 03/01/19 19:38 Total Protein 7.1 g/dL (6.3-8.2) 03/01/19 19:38 Albumin 3.5 g/dL (3.5-5.0) 03/01/19 19:38 TSH 1.450 mIU/L (0.465-4.680) 03/01/19 19:38 Urine Color Yellow 03/01/19 23:00 Urine Appearance Clear (Clear) 03/01/19 23:00 Urine pH 5.5 (5.0-8.0) 03/01/19 23:00 Ur Specific [place] 1.022 (1.001-1.035) 03/01/19 23:00 Urine Protein 1+ (Negative) H 03/01/19 23:00 Urine Glucose (UA) Trace (Negative) H 03/01/19 23:00 Urine Ketones Negative (Negative) 03/01/19 23:00 Urine Blood Trace (Negative) H 03/01/19 23:00 Urine Nitrite Negative (Negative) 03/01/19 23:00 Urine Bilirubin Negative (Negative) 03/01/19 23:00 Urine Urobilinogen 2.0 mg/dL (<2.0) 03/01/19 23:00 Ur Leukocyte Esterase Negative (Negative) 03/01/19 23:00 Urine RBC 1 /hpf (0-5) 03/01/19 23:00 Urine WBC 1 /hpf (0-5) 03/01/19 23:00 Ur Squamous Epith Cells <1 /hpf (0-4) 03/01/19 23:00 Urine Mucus Rare /hpf (None) H 03/01/19 23:00 Vancomycin Trough 34.1 ug/mL H* 03/04/19 08:28 Microbiology 03/02/19 00:30 Blood Blood Culture Gram Stain - Final 03/02/19 00:30 Blood Blood Culture - Final Staphylococcus aureus 03/03/19 14:56 Blood Blood Culture - Preliminary No Growth after 24 hours 03/02/19 18:43 Blood Blood Culture Gram Stain - Final 03/02/19 18:43 Blood Blood Culture - Final Staphylococcus aureus 03/02/19 18:43 Blood Blood Culture - Final 03/02/19 00:30 Blood Blood Culture - Final Assessment and Plan (1) Cellulitis Current Visit: Yes Status: Acute Code(s): L03.90 - CELLULITIS, UNSPECIFIED SNOMED Code(s): 710221082 (2) Diabetic ulcer of left foot associated with diabetes mellitus due to underlying condition, with fat layer exposed Narrative/Plan: 74-year-old male with a long-standing history of multiple medical troubles includes diabetes mellitus type 2 with ischemic cardiomyopathy is presenting with ongoing difficulties to the left heel with a nonhealing ulceration. Was seen by vascular surgery today where a debridement was performed and was brought in the hospital. Currently receiving antibiotic therapy with vancomycin cultures are pending. The patient had debridement today we'll have to consider further imaging studies such as a bone scan to that with the possibility of deeper infection since osteomyelitis is highly likely at this time. He is somewhat desperate to go home to care for his elderly . We do have a positive blood culture and will need follow-up blood culture, hopefully negative so a catheter can be placed and he can institute an outpatient course of antibiotic therapy. 03/04/2019 reveals that the patient is very anxious. Severe complex situation because he feels very poorly and feels very overwhelmed and guilty because of his spouse. 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 He is aware of the severity of his illness with the MSSA bacteremia in extensive ulceration to his left heel. He is aware that if he does not attend to it that he will potentially lose his foot and then his life. He is remitting to go to extended care facility but relates he will need to stop at his house for many hours to help the arrangements for the care of his spouse. Social work input is needed to help fulfill this need. MSSA isolated antibiotic therapy is now transitioned to more active cefazolin 2 g IV piggyback every 8 hours planning at least 4 weeks for the MSSA bacteremia, x-ray of the heels requested with great concerns for underlying osteomyelitis. Current Visit: No Status: Acute Code(s): E08.621 - DIABETES MELLITUS DUE TO UNDERLYING CONDITION W FOOT ULCER; L97.522 - NON-PRS CHRONIC ULCER OTH PRT LEFT FOOT W FAT LAYER EXPOSED SNOMED Code(s): 036881335
[2019-03-05 07:20] LABS: Glucose,Whole Blood 145 mg/dL (75-99)
[2019-03-05] MEDS: INSULIN ASPART (NovoLOG) 100 UNIT/ML VIAL SQ SCH ×2 (07:56→12:48)
[2019-03-05] MEDS: PANTOPRAZOLE 40 MG TABLET PO SCH (07:57)
[2019-03-05] MEDS: ISOSORBIDE MONONITRATE ER 30 MG TAB.ER.24H PO SCH (07:57)
[2019-03-05] MEDS: METOPROLOL TARTRATE 12.5 MG TAB PO SCH (07:57)
[2019-03-05] MEDS: BISACODYL 5 MG TABLET.DR PO PRN (07:57)
[2019-03-05] MEDS: ASPIRIN 81 MG PO SCH (07:57)
[2019-03-05] MEDS: SERTRALINE 50 MG TAB PO SCH (07:57)
[2019-03-05] MEDS: HEPARIN SODIUM,PORCINE 5,000 UNIT/ML 1 ML VIAL SQ SCH (07:57)
[2019-03-05] MEDS: hydrALAZINE HCL 50 MG TAB PO SCH (07:57)
[2019-03-05] MEDS: SPIRONOLACTONE 25 MG TAB PO SCH (07:57)
[2019-03-05] MEDS: FUROSEMIDE 80 MG TAB PO SCH (07:57)
[2019-03-05] MEDS: ATORVASTATIN 80 MG TAB PO SCH (07:57)
[2019-03-05 10:34] LABS: Calcium 8.8 mg/dL (8.4-10.2); Potassium 4.4 mmol/L (3.5-5.1)
[2019-03-05 11:18] LABS: Vancomycin,Random 22.6 ug/mL
[2019-03-05 11:30] LABS: C Reactive Protein 166.1 mg/L (<10.0)
[2019-03-05 12:12] LABS: Glucose,Whole Blood 138 mg/dL (75-99)
[2019-03-05] MEDS: oxyCODONE-APAP 5-325MG 1 EACH TAB PO PRN (12:48)
[2019-03-05] MEDS ORDERED: LIDOCAINE 1% INJ 10MG/ML (20 ML MDV) SQ ONE (13:57)
[2019-03-05 15:02] VITALS: BP 98/46; PULSE 66; RESP 16; TEMP 97.5
--- NOTE | 2019-03-05 15:25 | CDI ---
Documentation Clarification Form Date: 03/03/2019 12:34:00 PM From: Jamila Purdy RN, CCDS Admit Date: 03/03/2019 7:16:00 AM Patient Name: Karlos Mathews Visit Number: [id number] Discharge Date: ATTENTION: The Clinical Documentation Specialists (CDI) and [facility] Coding Staff appreciate your assistance in clarifying documentation. Please respond to the clarification below the line at the bottom and electronically sign. The CDI & [facility] Coding staff will review the response and follow-up if needed. Please note: Queries are made part of the Legal Health Record. If you have any questions, please contact the author of this message via ITS. Dr. Duarte Barth Per your progress notes/operative note, a debridement was performed on 03/03 and requires further specifity. History/Risk Factors: DM, CHF, CRF, COPD Clinical Indicators: 03/02 H&P: "patient is found to have "I diabetic foot ulcer appears to be stage 3-4 no exposed bone." 03/03 Procedure note: "The patient has neuropathy and does not have much feeling. Using knife, we did remove the devitalized tissue. Some bleeding was noted, which was controlled. The wound was irrigated with saline. Santyl cream applied to the wound." Treatment: Debrdiement of the wound down to the subcutaneous tissue [facility] Vancomyacin Five elements required for accurate and compliant documentation of a debridement: 1. Technique used (e.g., excisional, excised, cutting, etc.) 2. Instrument(s) used (e.g., scalpel, curette, etc.) 3. Nature of the tissue removed (e.g., necrotic, devitalized tissues, non- viable tissue, etc.) 4. Appearance and size of the wound (e.g., down to fresh bleeding tissue, 7cm x 10cm, etc.) 5. Depth of the debridement* (e.g., skin, subcutaneous tissue, fascia, muscle, bone, etc.) In order to capture the severity of condition and code the appropriate procedure; could you please document the following: Excisional debridement (the removal of necrotic, devitalized tissue or slough by means of cutting away of tissue) Non-excisional debridement (the removal of necrotic, devitalized tissue or slough by means of flushing, brushing, or washing. (Irrigation) Other; please specify Unable to determine (Last Revision: October 2017) MTDD
--- NOTE | 2019-03-05 15:28 | P.DS ---
Providers Date of admission: 03/03/19 07:16 Expected date of discharge: 03/05/19 Attending physician: Gian Chavira Consults: 03/02/19 00:01 Consult Physician Routine Consulting Provider: Alex Richards Consult Reason/Comments: evaluate for cellulitis Do you want consulting provider notified?: Yes 03/02/19 16:18 Consult Physician Routine Consulting Provider: Duarte Barth Consult Reason/Comments: infected ulcer left heel Do you want consulting provider notified?: Yes Primary care physician: [facility] Course: Final diagnosis Generalized weakness: Generalized deconditioning Hyperkalemia secondary to lisinopril Congestive heart failure chronic systolic dysfunction as well as diastolic dysfunction without any acute exacerbation Osteomyelitis of the left calcaneus History of Enterococcus Faecalis, MRSA Diabetes mellitus type 2 COPD without any acute exacerbation Hyperlipidemia Coronary artery disease DVT prophylaxis GI prophylaxis Discharge disposition Patient is being discharged in a stable condition with guarded prognosis to [facility] for continued IV antibiotic therapy per infectious disease recommendations. Patient did receive a PICC line today. History of present illness This is a 74-year-old male who was recently admitted with a diabetic foot ulcer underwent debridement of the left heel patient is bacteremic with MRSA and was being followed with infectious disease. Patient also was having episodes of low blood pressure and patient's lisinopril was discontinued. Patient was also having hyperkalemia secondary to lisinopril use. Patient is to hold lisinopril for now. Patient did have a slightly elevated creatinine and is currently at 1.34. Patient's Lasix will be held for 2 days with a repeat BMP and then may resume oral Lasix at 80 mg in the morning and 60 mg in the evening. Patient is to continue with daily dressing changes using Santyl applied to the area with Hector wraps per Dr. Barth. Patient denies any shortness of breath, chest pain, or palpitations at this time. he has been tolerating diet with no vomiting or nausea at this time. Patient is afebrile. On exam vital signs are stable. Blood pressure is 98/46, pulse is 66, respirations are 16, temp is 97.5F, oxygen saturation is 95% on room air. Cardio S1 and S2 are normal. Respiratory system shows clear to auscultation. Abdomen is soft, obese, and non-tender. Nervous system shows no focal deficits. Hetcor wraps are dry and intact of the left lower extremity. Please refer to medication reconciliation sheet for a list of medications. Patient Condition at Discharge: Fair Plan - Discharge Summary New Discharge Prescriptions: New Bisacodyl [Dulcolax] 10 mg PO DAILY PRN tablet. PRN Reason: Constipation Bisacodyl [Dulcolax] 10 mg RECTAL ONCE PRN supp PRN Reason: Constipation Isosorbide Mononitrate ER [Imdur] 30 mg PO DAILY tab.er.24h Furosemide [Lasix] 80 mg PO DAILY 30 Days tablet Furosemide [Lasix] 60 mg PO DAILY 30 Days tab INSULIN ASPART (NovoLOG) [NovoLOG (formulary)] 0 unit SQ ACHS vial oxyCODONE-APAP 5-325MG [Percocet 5-325 mg] 1 each PO Q4HR PRN #9 tab PRN Reason: Severe Pain Collagenase [Santyl] 1 applic TOPICAL DAILY applic Continue Aspirin [Adult Low Dose Aspirin EC] 81 mg PO DAILY Atorvastatin [Lipitor] 80 mg PO DAILY metFORMIN HCL [Glucophage] 1,000 mg PO BID Lisinopril [Zestril] 2.5 mg PO DAILY #90 tab Sertraline [Zoloft] 50 mg PO DAILY Nitroglycerin Sl Tabs [Nitrostat] 0.4 mg SL Q5M PRN PRN Reason: Chest Pain Spironolactone [Aldactone] 25 mg PO BID #60 tab Metoprolol Tartrate [Lopressor] 12.5 mg PO BID tab Mirtazapine [Remeron] 15 mg PO HS #3 tablet Discontinued Furosemide [Lasix] 80 mg PO BID@0900,1600 tab HYDROcodone/APAP 7.5-325MG [[place] 7.5-325] 1 tab PO Q6HR PRN #12 tab PRN Reason: Pain Discharge Medication List Aspirin [Adult Low Dose Aspirin EC] 81 mg PO DAILY 04/10/16 [History] Atorvastatin [Lipitor] 80 mg PO DAILY 08/06/16 [History] metFORMIN HCL [Glucophage] 1,000 mg PO BID 08/28/17 [History] Lisinopril [Zestril] 2.5 mg PO DAILY #90 tab 08/27/18 [Rx] Nitroglycerin Sl Tabs [Nitrostat] 0.4 mg SL Q5M PRN 11/02/18 [History] Sertraline [Zoloft] 50 mg PO DAILY 11/02/18 [History] Spironolactone [Aldactone] 25 mg PO BID #60 tab 11/04/18 [Rx] Metoprolol Tartrate [Lopressor] 12.5 mg PO BID tab 01/25/19 [Rx] Mirtazapine [Remeron] 15 mg PO HS #3 tablet 01/25/19 [Rx] Bisacodyl [Dulcolax] 10 mg PO DAILY PRN tablet.dr 03/05/19 [Rx] Bisacodyl [Dulcolax] 10 mg RECTAL ONCE PRN supp 03/05/19 [Rx] Collagenase [Santyl] 1 applic TOPICAL DAILY applic 03/05/19 [Rx] Furosemide [Lasix] 60 mg PO DAILY 30 Days tab 03/05/19 [Rx] Furosemide [Lasix] 80 mg PO DAILY 30 Days tablet 03/05/19 [Rx] INSULIN ASPART (NovoLOG) [NovoLOG (formulary)] 0 unit SQ ACHS vial 03/05/19 [Rx] Isosorbide Mononitrate ER [Imdur] 30 mg PO DAILY tab.er.24h 03/05/19 [Rx] oxyCODONE-APAP 5-325MG [Percocet 5-325 mg] 1 each PO Q4HR PRN #9 tab 03/05/19 [Rx] Follow up Appointment(s)/Referral(s): Grey Brown DO [Primary Care Provider] - 1-2 days [facility] [NON-STAFF] - Ambulatory/Diagnostic Orders: Basic Metabolic Panel [LAB.AMB] Time Frame: 2 Days, Location: None Selected Patient Instructions/Handouts: Heart Failure (DC), Osteomyelitis (DC), Type 2 Diabetes in Adults: New Diagnosis (DC), Diabetic Foot Ulcers (DC) Activity/Diet/Wound Care/Special Instructions: Patient will be going to [facility] Activity as tolerated Continue with IV antibiotic therapy per infectious disease Continue current diet Please hold oral Lasix for today, 03/06/2019, 03/07/2019 and recheck BMP in 2-3 days. Patient may resume oral Lasix at 80 mg daily in the morning and 60 mg daily in the evening. Patient is to have Santyl applied to the left heel daily and then wrapped with an hector wrap per infectious disease and wounds. Follow up with Dr. Richards and Dr. Chang as discussed. Discharge Disposition: TRANSFER TO SNF/ECF
[2019-03-05] MEDS: COLLAGENASE 250 UNIT/GM OINTMENT 30 GM TUBE TOPICAL SCH (15:44)
--- NOTE | 2019-03-05 16:05 | IR ---
EXAMINATION TYPE: IR cvc insert >=5 years DATE OF EXAM: 03/05/2019 COMPARISON: NONE CLINICAL HISTORY: Infection Needs long-term intravenous access for antibiotics. PROCEDURE: After informed consent, the skin overlying the left basilic vein was localized with ultrasound and no [place] to be compressible and patent. An ultrasound image was obtained and submitted on the patient's c clancy. The overlying skin was prepped and draped and Lidocaine was used for local anesthesia. A skin [place] was made with a scalpel. Access was gained to the vein under ultrasound guidance with a 21 gau ge needle and a 0.018 inch wire was advanced. Access site was dilated with Peel-Away sheath and cath eter tailored to the appropriate length and advanced such that the distal tip is at the cavoatrial ju nction. Spot image was obtained verifying placement. Catheter was fixed to the skin and a sterile d ressing was placed following hemostasis. Catheter was aspirated and flushed with saline. Patient wa s discharged in stable condition without complication. Maximal barrier technique is utilized. Ultras ound image is documented on the chart. Ultrasound used with sterile technique. Fluoro time and fluoroscopic images submitted to document procedure: 0.7 minutes fluoroscopy time, 12 intraoperative images document the procedure IMPRESSION: STATUS POST ULTRASOUND AND FLUOROSCOPIC GUIDED PICC LINE PLACEMENT, READY FOR USE. THIS PROCEDURE WAS PERFORMED BY THE UNDERSIGNED.
--- NOTE | 2019-03-05 17:08 | XR ---
Left calcaneus HISTORY: Osteomyelitis, 2 month history of wound Correlation to bone scan 01/18/2019 2 views of the calcaneus There is a plantar calcaneal spur. Lucency in the soft tissues at the level of the posterior calcaneu s is compatible with patient's history of wound and local soft tissue infection. There is an enthesop hyte at the insertion of the Achilles tendon. Vascular calcifications are present. Bone mineralizatio n mildly reduced. There is degenerative change at the intertarsal joints. No definite bone erosion or periostitis. There is some local sclerosis present however at the posteri or inferior calcaneus. IMPRESSION: Findings may be indicative of local healing at the posterior calcaneus on the left.
--- NOTE | 2019-03-05 23:28 | P.PN ---
Subjective Progress Note Date: 03/05/19 This is a 74-year-old male patient well known to ID service as [facility] for ulceration to the left heel of unclear etiology with no known trauma. Patient does have history of prior diabetic foot ulceration, ischemic cardiomyopathy, peripheral vascular disease. 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 Patient was at [facility] for 21 days and then was discharged home. His PICC line who has been subsequently removed about one week ago. He does have [facility] in place. Patient presented to [facility] emergency center yesterday by EMS due to lower extremity swelling and pain. Patient was afebrile, white count 8.9, creatinine 0.94, blood sugar 196, alkaline phosphatase 169, urinalysis was clear with nitrate and leukoesterase negative. Blood culture is positive for staph aureus. Chest x-ray reveals small left pleural effusion. Patient was started on vancomycin and placed on the [facility] floor. Patient has been seen by Dr. Barth and he did a bedside debridement of the wound left heel down to subcutaneous tissue. Local wound care is in the form of medihoney. 03/04/2019 patient understands serious nature of infection with the bacteremia, is worried about his spouse, due to her debility. 03/05/2019 there has been some significant movement as far as the overall discharge plan. The patient understands the serious nature of his left heel ulceration and underlying infection and sepsis that has resulted from it. He understands that without appropriate therapy he could lose his foot or his limb related and I have sepsis. He is willing to go to the extended care facility to receive his antibiotic therapy. The case is discussed with the social services specialist. Objective - Vital Signs Vital signs: Vital Signs Temp 97.5 F L 03/05/19 15:00 Pulse 66 03/05/19 15:00 Resp 16 03/05/19 15:00 BP 98/46 03/05/19 15:00 Pulse Ox 95 03/05/19 15:00 Intake & Output 03/05/19 03/05/19 03/06/19 06:59 18:59 06:59 Intake Total 300 Balance 300 Weight 112.5 kg Intake: Oral 300 Other: Voiding Method Urinal Urinal # Voids 10 3 # Bowel Movements 2 1 - Exam This is a 74-year-old male sitting on the edge of his bed and appears to be comfortable. Patient has multiple generalized complaints HEENT: Anicteric conjunctiva are pink and moist nasal mucosa grossly intact without significant lesions, there is no thrush. Poor dentition Neck: The neck is supple without significant lymphadenopathy or thyromegaly. Lungs: Symmetric air entry no wheezes no kenny dullness or egophony Heart: Irregular without new murmur click or rub PMI is nondisplaced Abdomen: Obese, Positive bowel sounds soft and nontender without palpable masses or organomegaly. There was no guarding or rebound. Extremities: The upper extremities have excellent pulses they are symmetric, no significant petechiae or telangiectasia. No splinter hemorrhages were noted. Lower extremities evidence of the chronic lower extremity edema. The left heel reveals that the extensive necrotic ulceration status post debridement, with time will need further extensive debridement Neuro: Awake alert oriented to person place and time. - Labs CBC & Chem 7: 03/03/19 08:49 03/05/19 09:48 Labs: Abnormal Lab Results - Last 24 Hours (Table) 03/05/19 03/05/19 03/05/19 Range/Units 07:14 09:48 09:48 ESR 99 H (0-15) mm/hr BUN (9-20) mg/dL Creatinine (0.66-1.25) mg/dL Glucose (74-99) mg/dL POC Glucose (mg/dL) 145 H (75-99) mg/dL C-Reactive Protein 166.1 H (<10.0) mg/L 03/05/19 03/05/19 Range/Units 09:48 11:49 ESR (0-15) mm/hr BUN 29 H (9-20) mg/dL Creatinine 1.34 H (0.66-1.25) mg/dL Glucose 143 H (74-99) mg/dL POC Glucose (mg/dL) 138 H (75-99) mg/dL C-Reactive Protein (<10.0) mg/L Microbiology - Last 24 Hours (Table) 03/03/19 14:56 Blood Culture - Preliminary Blood No Growth after 48 hours 03/04/19 08:28 Blood Culture - Preliminary Blood No Growth after 24 hours 03/02/19 00:30 Blood Culture Gram Stain - Final Blood Blood Culture - Final Staphylococcus aureus Laboratory Results WBC 8.2 k/uL (3.8-10.6) 03/03/19 08:49 RBC 3.25 m/uL (4.30-5.90) L 03/03/19 08:49 Hgb 9.6 gm/dL (13.0-17.5) L 03/03/19 08:49 Hct 29.1 % (39.0-53.0) L 03/03/19 08:49 MCV 89.7 fL (80.0-100.0) 03/03/19 08:49 MCH 29.4 pg (25.0-35.0) 03/03/19 08:49 MCHC 32.8 g/dL (31.0-37.0) 03/03/19 08:49 RDW 16.4 % (11.5-15.5) H 03/03/19 08:49 Plt Count 172 k/uL (150-450) 03/03/19 08:49 Neutrophils % 78 % 03/01/19 19:38 Lymphocytes % 9 % 03/01/19 19:38 Monocytes % 6 % 03/01/19 19:38 Eosinophils % 5 % 03/01/19 19:38 Basophils % 0 % 03/01/19 19:38 Neutrophils # 7.0 k/uL (1.3-7.7) 03/01/19 19:38 Lymphocytes # 0.8 k/uL (1.0-4.8) L 03/01/19 19:38 Monocytes # 0.5 k/uL (0-1.0) 03/01/19 19:38 Eosinophils # 0.4 k/uL (0-0.7) 03/01/19 19:38 Basophils # 0.0 k/uL (0-0.2) 03/01/19 19:38 Anisocytosis Slight 03/03/19 08:49 ESR 99 mm/hr (0-15) H 03/05/19 09:48 PT 10.4 sec (9.0-12.0) 03/01/19 19:38 INR 1.0 (<1.2) 03/01/19 19:38 APTT 28.0 sec (22.0-30.0) 03/01/19 19:38 Sodium 137 mmol/L (137-145) 03/05/19 09:48 Potassium 4.4 mmol/L (3.5-5.1) 03/05/19 09:48 Chloride 105 mmol/L (98-107) 03/05/19 09:48 Carbon Dioxide 22 mmol/L (22-30) 03/05/19 09:48 Anion Gap 10 mmol/L 03/05/19 09:48 BUN 29 mg/dL (9-20) H 03/05/19 09:48 Creatinine 1.34 mg/dL (0.66-1.25) H 03/05/19 09:48 Est GFR (CKD-EPI)AfAm 60 (>60 ml/min/1.73 sqM) 03/05/19 09:48 Est GFR (CKD-EPI)NonAf 52 (>60 ml/min/1.73 sqM) 03/05/19 09:48 Glucose 143 mg/dL (74-99) H 03/05/19 09:48 POC Glucose (mg/dL) 138 mg/dL (75-99) H 03/05/19 11:49 POC Glu Lock Master Carmen Gonzalez 03/05/19 11:49 Plasma Lactic Acid Steve 1.3 mmol/L (0.7-2.0) 03/01/19 19:38 Calcium 8.8 mg/dL (8.4-10.2) 03/05/19 09:48 Magnesium 2.0 mg/dL (1.6-2.3) 03/01/19 19:38 Total Bilirubin 0.9 mg/dL (0.2-1.3) 03/01/19 19:38 AST 40 U/L (17-59) 03/01/19 19:38 ALT 67 U/L (21-72) 03/01/19 19:38 Alkaline Phosphatase 169 U/L (38-126) H 03/01/19 19:38 Troponin I <0.012 ng/mL (0.000-0.034) 03/01/19 19:38 C-Reactive Protein 166.1 mg/L (<10.0) H 03/05/19 09:48 NT-Pro-B Natriuret Pep 2660 pg/mL 03/01/19 19:38 Total Protein 7.1 g/dL (6.3-8.2) 03/01/19 19:38 Albumin 3.5 g/dL (3.5-5.0) 03/01/19 19:38 TSH 1.450 mIU/L (0.465-4.680) 03/01/19 19:38 Urine Color Yellow 03/01/19 23:00 Urine Appearance Clear (Clear) 03/01/19 23:00 Urine pH 5.5 (5.0-8.0) 03/01/19 23:00 Ur Specific [place] 1.022 (1.001-1.035) 03/01/19 23:00 Urine Protein 1+ (Negative) H 03/01/19 23:00 Urine Glucose (UA) Trace (Negative) H 03/01/19 23:00 Urine Ketones Negative (Negative) 03/01/19 23:00 Urine Blood Trace (Negative) H 03/01/19 23:00 Urine Nitrite Negative (Negative) 03/01/19 23:00 Urine Bilirubin Negative (Negative) 03/01/19 23:00 Urine Urobilinogen 2.0 mg/dL (<2.0) 03/01/19 23:00 Ur Leukocyte Esterase Negative (Negative) 03/01/19 23:00 Urine RBC 1 /hpf (0-5) 03/01/19 23:00 Urine WBC 1 /hpf (0-5) 03/01/19 23:00 Ur Squamous Epith Cells <1 /hpf (0-4) 03/01/19 23:00 Urine Mucus Rare /hpf (None) H 03/01/19 23:00 Vancomycin Trough 34.1 ug/mL H* 03/04/19 08:28 Random Vancomycin 22.6 ug/mL 03/05/19 09:48 Microbiology 03/03/19 14:56 Blood Blood Culture - Preliminary No Growth after 48 hours 03/04/19 08:28 Blood Blood Culture - Preliminary No Growth after 24 hours 03/02/19 00:30 Blood Blood Culture Gram Stain - Final 03/02/19 00:30 Blood Blood Culture - Final Staphylococcus aureus 03/02/19 18:43 Blood Blood Culture Gram Stain - Final 03/02/19 18:43 Blood Blood Culture - Final Staphylococcus aureus 03/02/19 18:43 Blood Blood Culture - Final 03/02/19 00:30 Blood Blood Culture - Final Assessment and Plan (1) Cellulitis Status: Acute Code(s): L03.90 - CELLULITIS, UNSPECIFIED SNOMED Code(s): 761669570 (2) Diabetic ulcer of left foot associated with diabetes mellitus due to underlying condition, with fat layer exposed Narrative/Plan: 74-year-old male with a long-standing history of multiple medical troubles includes diabetes mellitus type 2 with ischemic cardiomyopathy is presenting with ongoing difficulties to the left heel with a nonhealing ulceration. Was seen by vascular surgery today where a debridement was performed and was brought in the hospital. Currently receiving antibiotic therapy with vancomycin cultures are pending. The patient had debridement today we'll have to consider further imaging studies such as a bone scan to that with the possibility of deeper infection since osteomyelitis is highly likely at this time. He is somewhat desperate to go home to care for his elderly . We do have a positive blood culture and will need follow-up blood culture, hopefully negative so a catheter can be placed and he can institute an outpatient course of antibiotic therapy. 03/04/2019 reveals that the patient is very anxious. Severe complex situation because he feels very poorly and feels very overwhelmed and guilty because of his spouse. 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 He is aware of the severi ty of his illness with the MSSA bacteremia in extensive ulceration to his left heel. He is aware that if he does not attend to it that he will potentially lose his foot and then his life. He is remitting to go to extended care facility but relates he will need to stop at his house for many hours to help the arrangements for the care of his spouse. Social work input is needed to help fulfill this need. MSSA isolated antibiotic therapy is now transitioned to more active cefazolin 2 g IV piggyback every 8 hours planning at least 4 weeks for the MSSA bacteremia, x-ray of the heels requested with great concerns for underlying osteomyelitis. 03/05/2019 patient is much more comfortable now that he has spoken with the social services specialist. They are making appropriate decisions about his transfer to the extended care facility to receive his local wound care, antibiotic therapy, offloading and nutritional support. He'll receive Ancef 2 g IV piggyback every 8 hours. After tomorrow morning's dose he will be able to go on a short hiatus to go to his home so he will be able to take care of all of his concerns with his will then go to live with his son for a while, he is pills and make sure things are in order before he heads off to the extended care facility for at least 4 weeks for the significant MSSA bacteremia from the infection to the left heel. He will follow-up with the wound healing Center. Status: Acute Code(s): E08.621 - DIABETES MELLITUS DUE TO UNDERLYING CONDITION W FOOT ULCER; L97.522 - NON-PRS CHRONIC ULCER OTH PRT LEFT FOOT W FAT LAYER EXPOSED SNOMED Code(s): 179372461
--- NOTE | 2019-03-11 13:59 | CDI ---
Documentation Clarification Form 3rd Request Date: 03/03/2019 12:34:00 PM From: Jamila Purdy RN, CCDS Phone: Admit Date: 03/03/2019 7:16:00 AM Patient Name: Karlos Mathwes Visit Number: [id number] Discharge Date: 03/05/2019 4:07:00 PM ATTENTION: The Clinical Documentation Specialists (CDI) and [facility] Coding Staff appreciate your assistance in clarifying documentation. Please respond to the clarification below the line at the bottom and electronically sign. The CDI & [facility] Coding staff will review the response and follow-up if needed. Please note: Queries are made part of the Legal Health Record. If you have any questions, please contact the author of this message via ITS. Dr. Duarte Barth Per your progress notes/operative note, a debridement was performed on 03/03 and requires further specificity. History/Risk Factors: DM, CHF, CRF, COPD Clinical Indicators: 03/02 H&P: "patient is found to have "I diabetic foot ulcer appears to be stage 3-4 no exposed bone." 03/03 Procedure note: "The patient has neuropathy and does not have much feeling. Using knife, we did remove the devitalized tissue. Some bleeding was noted, which was controlled. The wound was irrigated with saline. Santyl cream applied to the wound." Treatment: Debridement of the wound down to the subcutaneous tissue [facility] local wound care IV Vancomyacin Five elements required for accurate and compliant documentation of a debridement: 1. Technique used (e.g., excisional, excised, cutting, etc.) 2. Instrument(s) used (e.g., scalpel, curette, etc.) 3. Nature of the tissue removed (e.g., necrotic, devitalized tissues, non- viable tissue, etc.) 4. Appearance and size of the wound (e.g., down to fresh bleeding tissue, 7cm x 10cm, etc.) 5. Depth of the debridement* (e.g., skin, subcutaneous tissue, fascia, muscle, bone, etc.) In order to capture the severity of condition and code the appropriate procedure; could you please document the following: Excisional debridement (the removal of necrotic, devitalized tissue or slough by means of cutting away of tissue) Non-excisional debridement (the removal of necrotic, devitalized tissue or slough by means of flushing, brushing, or washing. (Irrigation) Other; please specify Unable to determine (Last Revision: October 2017) MTDD
--- NOTE | 2019-03-15 07:27 | CDI ---
Documentation Clarification Form 4th Request Date: 03/03/2019 12:34:00 PM From: Jamila Purdy RN, CCDS Admit Date: 03/03/2019 7:16:00 AM Patient Name: Karlos Mathews Visit Number: [id number] Discharge Date: 03/05/2019 4:07:00 PM ATTENTION: The Clinical Documentation Specialists (CDI) and [facility] Coding Staff appreciate your assistance in clarifying documentation. Please respond to the clarification below the line at the bottom and electronically sign. The CDI & [facility] Coding staff will review the response and follow-up if needed. Please note: Queries are made part of the Legal Health Record. If you have any questions, please contact the author of this message via ITS. Dr. Duarte Barth Per your progress notes/operative note, a debridement was performed on 03/03and requires further specificity. History/Risk Factors: DM, CHF, CRF, COPD Clinical Indicators: 03/02 H&P: "patient is found to have "I diabetic foot ulcer appears to be stage 3-4 no exposed bone." 03/03 Procedure note: "The patient has neuropathy and does not have much feeling. Using knife, we did remove the devitalized tissue. Some bleeding was noted, which was controlled. The wound was irrigated with saline. Santyl cream applied to the wound." Treatment: Debridement of the wound down to the subcutaneous tissue [facility] local wound care IV Vancomyacin Five elements required for accurate and compliant documentation of a debridement: 1. Technique used (e.g., excisional, excised, cutting, etc.) 2. Instrument(s) used (e.g., scalpel, curette, etc.) 3. Nature of the tissue removed (e.g., necrotic, devitalized tissues, non- viable tissue, etc.) 4. Appearance and size of the wound (e.g., down to fresh bleeding tissue, 7cm x 10cm, etc.) 5. Depth of the debridement* (e.g., skin, subcutaneous tissue, fascia, muscle, bone, etc.) In order to capture the severity of condition and code the appropriate procedure; could you please document the following: Excisional debridement (the removal of necrotic, devitalized tissue or slough by means of cutting away of tissue) Non-excisional debridement (the removal of necrotic, devitalized tissue or slough by means of flushing, brushing, or washing. (Irrigation) Other; please specify Unable to determine (Last Revision: October 2017) MTDD
--- NOTE | 2019-03-19 13:02 | PCN ---
PROCEDURE NOTE ADDENDUM: DATE OF SERVICE: 03/03/2019 PROCEDURE: Excisional debridement of the wound down to subcutaneous tissue. MMODL / IJN: [id number] /
== END 2019-03-05 16:07 | DRG 623 ==
LOC: EC 19:16 → 4MS4W 23:59 → OBSVTOIN 03-03 07:16
PROVIDERS: ADMIT Hospitalist; ATTEND Hospitalist
PROC: 0JBR0ZZ Excision of Left Foot Subcutaneous Tissue and Fascia, Open Approach (ICD-10-PCS; principal; 2019-03-03)
PROC: 02HV33Z Insertion of Infusion Device into Superior Vena Cava, Percutaneous Approach (ICD-10-PCS; 2019-03-05)
DX: E11.69 Type 2 diabetes mellitus with other specified complication (principal); M86.172 Other acute osteomyelitis, left ankle and foot; I50.42 Chronic combined systolic (congestive) and diastolic (congestive) heart failure; L03.116 Cellulitis of left lower limb; Z79.84 Long term (current) use of oral hypoglycemic drugs; B95.61 Methicillin susceptible Staphylococcus aureus infection as the cause of diseases classified elsewhere; E11.621 Type 2 diabetes mellitus with foot ulcer; E66.9 Obesity, unspecified; Z68.34 Body mass index [BMI] 34.0-34.9, adult; E78.5 Hyperlipidemia, unspecified; E87.5 Hyperkalemia; F17.210 Nicotine dependence, cigarettes, uncomplicated; E11.42 Type 2 diabetes mellitus with diabetic polyneuropathy; E11.51 Type 2 diabetes mellitus with diabetic peripheral angiopathy without gangrene; I11.0 Hypertensive heart disease with heart failure; I25.10 Atherosclerotic heart disease of native coronary artery without angina pectoris; I25.2 Old myocardial infarction; I25.5 Ischemic cardiomyopathy; J44.9 Chronic obstructive pulmonary disease, unspecified; K59.00 Constipation, unspecified; L97.522 Non-pressure chronic ulcer of other part of left foot with fat layer exposed; M06.9 Rheumatoid arthritis, unspecified; T46.4X5A Adverse effect of angiotensin-converting-enzyme inhibitors, initial encounter; Z79.82 Long term (current) use of aspirin; Z79.899 Other long term (current) drug therapy; Z95.810 Presence of automatic (implantable) cardiac defibrillator; Z95.5 Presence of coronary angioplasty implant and graft; Z98.42 Cataract extraction status, left eye; Z88.0 Allergy status to penicillin; Z88.8 Allergy status to other drugs, medicaments and biological substances; Z98.1 Arthrodesis status
CPT/HCPCS: 36415; 36573; 71046; 80048; 80053; 80202; 81001; 82565; 83605; 83735; 83880; 84443; 84484; 85025; 85027; 85610; 85652; 85730; 86140; 87040; 87077; 87186; 93005; 96365; 96366; 96372; 96375; 99285

== ENCOUNTER 2019-05-18 04:02 | Inpatient (IN) | payer MEDICARE, OTHER ==
--- NOTE | 2019-05-18 04:49 | ED ---
General Adult HPI - General Chief complaint: Shortness of Breath Stated complaint: Weakness Time Seen by Provider: 05/18/19 04:14 Source: patient, EMS Mode of arrival: EMS - History of Present Illness Initial comments: This patient is 74-year-old man who presents to be evaluated for generalized weakness, fatigue, dizziness, and little shortness of breath that came on tonight. The patient relates that he had been at the senior living for the past 4 months on a rehabilitation stent, and receiving IV antibiotics for what sounds like left heel osteomyelitis. The patient states that he had been discharged yesterday and had gone home. He relates that he got up to use the bathroom tonight. He states that after using the bathroom he felt that he was very weak and was barely able to ambulate from the bathroom back to his living area. He felt he was very winded. Patient relates that the weakness was generalized, it was not unilateral. He denies headache or chest pain. Onset/Timin -: hour(s) Location: left, right, lower extremity Radiation: non-radiation Consistency: constant Improves with: none Worsens with: movement Associated Symptoms: shortness of breath, weakness Treatments Prior to Arrival: none - Related Data Home Medications Medication Instructions Recorded Confirmed Aspirin [Adult Low Dose Aspirin EC] 81 mg PO DAILY 04/10/16 03/02/19 Atorvastatin [Lipitor] 80 mg PO DAILY 08/06/16 03/02/19 metFORMIN HCL [Glucophage] 1,000 mg PO BID 08/28/17 03/02/19 Nitroglycerin Sl Tabs [Nitrostat] 0.4 mg SL Q5M PRN 11/02/18 03/02/19 Sertraline [Zoloft] 50 mg PO DAILY 11/02/18 03/02/19 Previous Rx's Medication Instructions Recorded Spironolactone [Aldactone] 25 mg PO BID #60 tab 11/04/18 Metoprolol Tartrate [Lopressor] 12.5 mg PO BID tab 01/25/19 Mirtazapine [Remeron] 15 mg PO HS #3 tablet 01/25/19 Bisacodyl [Dulcolax] 10 mg PO DAILY PRN tablet. 03/05/19 Bisacodyl [Dulcolax] 10 mg RECTAL ONCE PRN supp 03/05/19 Collagenase [Santyl] 1 applic TOPICAL DAILY applic 03/05/19 Furosemide [Lasix] 60 mg PO DAILY 30 Days tab 03/05/19 Furosemide [Lasix] 80 mg PO DAILY 30 Days tablet 03/05/19 INSULIN ASPART (NovoLOG) [NovoLOG 0 unit SQ ACHS vial 03/05/19 (formulary)] Isosorbide Mononitrate ER [Imdur] 30 mg PO DAILY tab.er.24h 03/05/19 oxyCODONE-APAP 5-325MG [Percocet 1 each PO Q4HR PRN #9 tab 03/05/19 5-325 mg] Allergies Allergy/AdvReac Type Severity Reaction Status Date / Time Penicillins Allergy Rash/Hives Verified 03/02/19 08:45 gabapentin [From Neurontin] AdvReac Nausea Verified 03/02/19 08:45 Review of Systems ROS Statement: Those systems with pertinent positive or pertinent negative responses have been documented in the HPI. ROS Other: All systems not noted in ROS Statement are negative. Constitutional: Reports: weakness. Denies: fever, chills Respiratory: Reports: dyspnea. Denies: cough, wheezes Cardiovascular: Denies: chest pain, palpitations, orthopnea, edema, syncope Gastrointestinal: Denies: abdominal pain, nausea, vomiting Genitourinary: Denies: dysuria, hematuria Musculoskeletal: Denies: back pain Skin: Denies: rash Neurological: Reports: weakness. Denies: headache, numbness, paresthesias Past Medical History Past Medical History: Heart Failure, COPD, Diabetes Mellitus, Hyperlipidemia, Hypertension, Myocardial Infarction ([place]), Rheumatoid Arthritis (RA) Additional Past Medical History / Comment(s): Anemia, Fall December 2018, Left heel osteomylitis Last Myocardial Infarction Date:: 2010 History of Any Multi-Drug Resistant Organisms: MRSA, VRE Date of last positivie culture/infection: 12/08/15 MDRO Source:: RIGHT FOOT MRSA AND VRE Past Surgical History: Appendectomy, Cholecystectomy, Heart Catheterization With Stent, Hernia Repair, Tonsillectomy Additional Past Surgical History / Comment(s): cervical fusion laminactomy , left carpal tunnel release, cataract left eye, HEART STENT X2, 10-16-15 PTBA /RT LEG STENT, rt hand x2 surgery, umb hernia, past picc line, AICD [address]hatia Past Anesthesia/Blood Transfusion Reactions: Postoperative Nausea & Vomiting (PONV) Additional Past Anesthesia/Blood Transfusion Reaction / Comment(s): .PT STATED AFTER HAND SX HAD DIFFICULTY URINATING AND PAIN MEDS CONSTIPATE HIM. Date of Last Stent Placement:: 12/2013 Type of Cardiac Device: AICD Device Placement Date:: 2014 Past Psychological History: No Psychological Hx Reported Smoking Status: Current every day smoker Past Alcohol Use History: None Reported Past Drug Use History: None Reported - Past Family History Mother Additional Family Medical History / Comment(s): PT STATED MOM WAS HEALTHY BUT IN OLDER AGE GOT PNE- FROM COMPLICATIONS OF PNE. Father Family Medical History: Osteoarthritis (OA) Additional Family Medical History / Comment(s): ULCERS, HEART PROBLEMS HAD BYPASS,BACK SURGURY General Exam General appearance: alert, in no apparent distress Head exam: Present: atraumatic, normocephalic Eye exam: Present: normal appearance. Absent: scleral icterus, conjunctival injection ENT exam: Present: mucous membranes dry Neck exam: Present: full ROM Respiratory exam: Present: normal lung sounds bilaterally. Absent: respiratory distress, wheezes, rales, rhonchi, stridor Cardiovascular Exam: Present: regular rate, normal rhythm, normal heart sounds. Absent: systolic murmur, diastolic murmur, rubs, gallop GI/Abdominal exam: Present: soft. Absent: distended, tenderness, guarding, rebound, rigid, mass Extremities exam: Present: normal capillary refill. Absent: pedal edema, calf tenderness Back exam: Present: other (Sacral decubitus ulcer present). Absent: CVA tenderness (R), CVA tenderness (L) Neurological exam: Present: alert. Absent: motor sensory deficit Skin exam: Present: warm, dry, intact, normal color. Absent: rash Course Vital Signs 05/18/19 05/18/19 05/18/19 04:15 04:53 06:08 Temperature 98.8 F Pulse Rate 78 81 Respiratory 18 20 18 Rate Blood Pressure 120/66 127/61 O2 Sat by Pulse 100 100 Oximetry EKG Findings - EKG Comments: EKG Findings:: Possible old anteroseptal infarct - EKG Results: EKG: interpreted by ERMD, sinus rhythm (Rate approximate 76 bpm) - Blocks, Bogard, Hypertrophy, ST Abn: AV and intraventricular conduction: 1 AV block, right bundle branch block (fixed/intermittent, complete/incomplete) (Incomplete) QRS axis and voltage: left axis deviation (-30 to -90) Medical Decision Making - Medical Decision Making Patient is 74-year-old man presenting with generalized weakness and fatigue. On the exam he does look to be mildly dehydrated. Patient's labs do show creatinine elevated over baseline. In addition he has elevated BNP first baseline and also mild elevated troponin. Patient be admitted with further workup for be acute kidney injury, elevated troponin, and to rule out infection. Urine still pending at time of admission. - Lab Data Result diagrams: 05/18/19 04:55 05/18/19 04:55 Lab Results 05/18/19 05/18/19 05/18/19 Range/Units 04:55 04:55 04:55 WBC 12.0 H (3.8-10.6) k/uL RBC 3.22 L (4.30-5.90) m/uL Hgb 10.0 L (13.0-17.5) gm/dL Hct 29.4 L (39.0-53.0) % MCV 91.3 (80.0-100.0) fL MCH 31.0 (25.0-35.0) pg MCHC 33.9 (31.0-37.0) g/dL RDW 15.3 (11.5-15.5) % Plt Count 182 (150-450) k/uL Neutrophils % 90 % Lymphocytes % 4 % Monocytes % 4 % Eosinophils % 1 % Basophils % 0 % Neutrophils # 10.8 H (1.3-7.7) k/uL Lymphocytes # 0.4 L (1.0-4.8) k/uL Monocytes # 0.5 (0-1.0) k/uL Eosinophils # 0.2 (0-0.7) k/uL Basophils # 0.0 (0-0.2) k/uL PT (9.0-12.0) sec INR (<1.2) APTT (22.0-30.0) sec Sodium 140 (137-145) mmol/L Potassium 3.4 L (3.5-5.1) mmol/L Chloride 98 (98-107) mmol/L Carbon Dioxide 31 H (22-30) mmol/L Anion Gap 11 mmol/L BUN 52 H (9-20) mg/dL Creatinine 2.68 H (0.66-1.25) mg/dL Est GFR (CKD-EPI)AfAm 26 (>60 ml/min/1.73 sqM) Est GFR (CKD-EPI)NonAf 22 (>60 ml/min/1.73 sqM) Glucose 202 H (74-99) mg/dL Plasma Lactic Acid Steve 1.0 (0.7-2.0) mmol/L Calcium 9.1 (8.4-10.2) mg/dL Magnesium 1.3 L (1.6-2.3) mg/dL Total Bilirubin 0.7 (0.2-1.3) mg/dL AST 45 (17-59) U/L ALT 17 L (21-72) U/L Alkaline Phosphatase 206 H (38-126) U/L Troponin I (0.000-0.034) ng/mL NT-Pro-B Natriuret Pep pg/mL Total Protein 7.2 (6.3-8.2) g/dL Albumin 3.7 (3.5-5.0) g/dL 05/18/19 05/18/19 05/18/19 Range/Units 04:55 04:55 04:55 WBC (3.8-10.6) k/uL RBC (4.30-5.90) m/uL Hgb (13.0-17.5) gm/dL Hct (39.0-53.0) % MCV (80.0-100.0) fL MCH (25.0-35.0) pg MCHC (31.0-37.0) g/dL RDW (11.5-15.5) % Plt Count (150-450) k/uL Neutrophils % % Lymphocytes % % Monocytes % % Eosinophils % % Basophils % % Neutrophils # (1.3-7.7) k/uL Lymphocytes # (1.0-4.8) k/uL Monocytes # (0-1.0) k/uL Eosinophils # (0-0.7) k/uL Basophils # (0-0.2) k/uL PT 10.9 (9.0-12.0) sec INR 1.0 (<1.2) APTT 29.0 (22.0-30.0) sec Sodium (137-145) mmol/L Potassium (3.5-5.1) mmol/L Chloride (98-107) mmol/L Carbon Dioxide (22-30) mmol/L Anion Gap mmol/L BUN (9-20) mg/dL Creatinine (0.66-1.25) mg/dL Est GFR (CKD-EPI)AfAm (>60 ml/min/1.73 sqM) Est GFR (CKD-EPI)NonAf (>60 ml/min/1.73 sqM) Glucose (74-99) mg/dL Plasma Lactic Acid Steve (0.7-2.0) mmol/L Calcium (8.4-10.2) mg/dL Magnesium (1.6-2.3) mg/dL Total Bilirubin (0.2-1.3) mg/dL AST (17-59) U/L ALT (21-72) U/L Alkaline Phosphatase (38-126) U/L Troponin I 0.042 H* (0.000-0.034) ng/mL NT-Pro-B Natriuret Pep 8210 pg/mL Total Protein (6.3-8.2) g/dL Albumin (3.5-5.0) g/dL Disposition Clinical Impression: Elevated troponin, Acute kidney injury Disposition: ADMITTED IP TO THIS HOSP
[2019-05-18 05:10] LABS: Basophils % (A) 0 %; Eosinophils # (A) 0.2 k/uL (0-0.7); Eosinophils % (A) 1 %; HCT 29.4 % (39.0-53.0); Lymphocytes # (A) 0.4 k/uL (1.0-4.8); Lymphocytes % (A) 4 %; MCHC 33.9 g/dL (31.0-37.0); MCV 91.3 fL (80.0-100.0); Mean Platelet Volume 7.2; Monocytes # (A) 0.5 k/uL (0-1.0); Monocytes % (A) 4 %; Neutrophils # (A) 10.8 k/uL (1.3-7.7); Neutrophils % (A) 90 %; Platelet Count 182 k/uL (150-450); RBC 3.22 m/uL (4.30-5.90); RDW 15.3 % (11.5-15.5)
[2019-05-18 05:16] LABS: Albumin 3.7 g/dL (3.5-5.0); Calcium 9.1 mg/dL (8.4-10.2); Magnesium 1.3 mg/dL (1.6-2.3); Potassium 3.4 mmol/L (3.5-5.1); Total Bilirubin 0.7 mg/dL (0.2-1.3); Total Protein 7.2 g/dL (6.3-8.2)
[2019-05-18 05:17] LABS: Prothrombin Time 10.9 sec (9.0-12.0)
--- NOTE | 2019-05-18 05:33 | XR ---
EXAM: XR Chest, 1 View CLINICAL HISTORY: ITS.REASON XR Reason: weakness TECHNIQUE: Frontal view of the chest. COMPARISON: 03/01/19 FINDINGS: Lungs: Mild streaky densities in the lung bases, probable atelectasis. Pulse generator partly obscures the left midlung, unchanged. Pleural space: Unremarkable. No pneumothorax. Heart: Unremarkable. No cardiomegaly. Mediastinum: Unremarkable. Bones/joints: Mild degenerative changes in both shoulders. Surgical plate in the visualized lower cervical spine. Vasculature: Prominent central vasculature and lung markings which may reflect mild congestion. Tubes, lines and devices: Left-sided transvenous pacer, unchanged in position. IMPRESSION: 1. Possible mild vascular congestion. 2. Mild bibasilar atelectasis.
[2019-05-18] MEDS ORDERED: SODIUM CHLORIDE 0.9% 1,000 ML IV ONE (06:14)
[2019-05-18] MEDS ORDERED: MAGNESIUM SULFATE-D5W PMX 1 GM in DEXTROSE/WATER 1 100ML.BAG IVPB ONE (06:15)
[2019-05-18] MEDS ORDERED: NALOXONE 0.4 MG/ML 1 ML VIAL IV PRN (06:17)
[2019-05-18] MEDS ORDERED: SODIUM CHLORIDE 0.9% 500 ML IV ONE (06:19)
[2019-05-18 06:59] LABS: Appearance,Urine Cloudy (Clear); Bacteria,Urine Rare /hpf; Bilirubin,Urine Negative (Negative); Blood,Urine Moderate (Negative); Color,Urine Light Yellow; Glucose,Urine (UA) 1+ (Negative); Ketones,Urine Negative (Negative); Leukocyte Esterase,Urine Trace (Negative); Mucus,Urine Rare /hpf; Nitrite,Urine Negative (Negative); Protein,Urine 2+ (Negative); RBC,Urine 2 /hpf (0-5); Squamous Epithelial Cell,Urine <1 /hpf (0-4); Urobilinogen,Urine <2.0 mg/dL (<2.0); WBC,Urine 7 /hpf (0-5)
[2019-05-18 11:32] LABS: Glucose,Whole Blood 197 mg/dL (75-99)
--- NOTE | 2019-05-18 12:28 | P.CON ---
Consult Note - . Consult date: 05/18/19 Assessment/Plan:: This is a 74-year-old male who been seen by the wound care center for a nonhealing ulceration to the left calcaneus. Patient is a known patient to the wound care center. Patient has a history of ostial myelitis to the left ca lcaneus. He just finished his IV antibiotics on Friday. He has been an extended care facility for the last 6 weeks due to IV antibiotics. Patient previously had a wound VAC to the left calcaneus. That was removed to return home. Patient also has an ulceration to the right lateral foot and the right lateral lower extremity. Right lateral lower extremity ulceration is healed. Right lateral foot ulceration is eschar with callus and stable. The left calcaneus ulceration shows significant improvement with minimal exudate and slough in granulation seen throughout. There is some undermining noted at 10:00 to 12:00 at approximately 0.4 cm. Review of systems: integumentary: Reports wounds, denies new lesions, denies pruritus Physical exam integumentary: See HPI Assessment/plan: 1. Type 2 diabetes with foot ulcer grade 3: Negative pressure wound therapy, black foam, continuous at 125 mmHg. 2. Type 2 diabetes with other skin ulceration with fatty layer exposure. Ulceration to the right lower extremity lateral aspect healed, apply foam to site as needed 2. Other acute ostial myelitis left ankle and foot: IV antibiotics discontinued per I&D, resolved Thank you for the consultation, contact wound care center with any questions. DNP note has been reviewed and discussed with Dr. Rosen and the impression and plan of care has been directed as dictated.
--- NOTE | 2019-05-18 12:36 | P.CRDCN ---
History of Present Illness History of present illness: This is a pleasant 74-year-old male past medical history significant for coronary artery disease status post stent placement to the proximal LAD and PLV branch of RCA with intermediate disease involving the left main and left circumflex, ischemic cardiomyopathy, chronic systolic heart failure, status post AICD, peripheral vascular disease status post atherectomy and balloon talha oplasty of the right popliteal artery 2015, COPD, hypertension, dyslipidemia and chronic osteomyelitis. He follows in the office with Dr. Boyle. We have been asked to see him in consultation secondary to troponin elevation. He just got out of a rehab facility where he had been for the previous 4 months. He states his son picked him up and fixed him dinner. Shortly thereafter he became extremely weak and was unable to care for himself at home. He called EMS for further assistance. He is seen and examined resting comfortably lying flat in bed in no acute distress. He states his breathing is stable however it seems to be worsening slowly. He denies symptoms of chest discomfort, palpitations, dizziness, nausea, vomiting or diaphoresis. He was last here in the hospital and seen by cardiology in January. At that time he was maintained on Aldactone, lisinopril, Lopressor and Lasix. At some point in the interim his lisinopril and aldactone were discontinued and lasix was decreased. Likely due to renal function. EKG reveals sinus mechanism, first-degree AV block, heart rate 76, left axis deviation, complete right bundle branch block and evidence of old anterior septal infarction. Chest xray reveals mild pulmonary vascular congestion and mild bibasilar atelectasis. Laboratory data reviewed, WBC 12, hemoglobin 10, platelets 182, sodium 140, potassium 3.4, creatinine 2.68 with a GFR of 22, magnesium 1.3, alkaline phosphatase 206, troponin 0.042, proBNP 8210 and TSH 1.6. Current daily cardiac medications include aspirin 81 mg daily, atorvastatin 80 mg daily, Lasix 40 mg daily, Imdur 30 mg daily, Lopressor 12.5 mg twice a day and daily potassium supplementation. Most recent echocardiogram from October 2018 revealed severely impaired LV systolic function with ejection fraction 20-25%, basal inferior, basal inferior septal and mid inferior septal apical wall motion hypokinesia, mild aortic valve sclerosis, mild aortic regurgitation and mild aortic stenosis. At the time of my exam: CONSTITUTIONAL: Denies fever. Denies chills. EYES: Denies blurred vision. Denies vision changes. Denies eye pain. EARS, NOSE, MOUTH & THROAT: Denies headache. Denies sore throat. Denies ear pain. CARDIOVASCULAR: Denies chest pain. Complains of shortness of breath. Denies orthopnea. Denies PND. Denies palpitations. RESPIRATORY: Denies cough. GASTROINTESTINAL: Denies abdominal pain. Denies diarrhea. Denies constipation. Denies nausea. Denies vomiting. MUSCULOSKELETAL: Denies myalgias. INTEGUMENTARY: Denies pruitis. Denies rash. NEUROLOGIC: Denies numbness. Denies tingling. Denies weakness. PSYCHIATRIC: Denies anxiety. Denies depression. ENDOCRINE: Denies fatigue. Denies weight change. Denies polydipsia. Denies polyurina. GENITOURINARY: Denies burning, hematuria or urgency with micturation. HEMATOLOGIC: Denies history of anemia. Denies bleeding. Blood pressure 127/61 heart rate 81 afebrile maintaining oxygen saturation on room air GENERAL: This is a 74-year-old male in no apparent distress at the time of my examination. HEENT: Head is atraumatic, normocephalic. Pupils are equal, round. Sclerae anicteric. Conjunctivae are clear. Mucous membranes of the mouth are moist. Neck is supple. There is no jugular venous distention. No carotid bruit is heard. LUNGS: Clear to auscultation no wheezes, rales or rhonchi. No chest wall tenderness is noted on palpation or with deep breathing. HEART: Regular rate and rhythm without murmurs, rubs or gallops. S1 and S2 heard . ABDOMEN: Soft, nontender. Bowel sounds are heard. No organomegaly noted. EXTREMITIES: No evidence of peripheral edema and no calf tenderness noted. VASCULAR: Radial and dorsalis pedis pulses palpated, no evidence of clubbing. NEUROLOGIC: Patient is awake, alert and oriented x3. ASSESSMENT Shortness of breath and weakness, mild acute exacerbation of chronic systolic heart failure Acute on chronic renal failure Hypomagnesemia Hypokalemia Leukocytosis Ischemic cardiomyopathy s/p AICD Coronary artery disease s/p stent placement Peripheral vascular disease Hypertension Dyslipdemia COPD Chronic lower extremity non-healing wounds PLAN Give lasix IV 40 mg BID. Continue daily potassium as well. Repeat electrolytes in the morning. Resume aspirin, atorvastatin, coreg and imdur as previously ordered. Repeat renal function in the morning. Thank you kindly for this consultation. Nurse Practitioner note has been reviewed, I agree with a documented findings and plan of care. Patient was seen and examined. Past Medical History Past Medical History: Heart Failure, COPD, Diabetes Mellitus, Hyperlipidemia, Hypertension, Myocardial Infarction ([place]), Rheumatoid Arthritis ([place]) Additional Past Medical History / Comment(s): L heel osteomylitis-pt states supposed to get wound vac, current R leg sore, pt concerned might have sore on coccyx currenly, NIDDM type II, neuropathy bilateral hands/legs and feet, past anemia. Last Myocardial Infarction Date:: 2010 History of Any Multi-Drug Resistant Organisms: MRSA, VRE Date of last positivie culture/infection: 12/08/15 MDRO Source:: RIGHT FOOT MRSA AND VRE Past Surgical History: AICD, Appendectomy, Cholecystectomy, Heart Catheterization With Stent, Hernia Repair, Tonsillectomy Additional Past Surgical History / Comment(s): cervical fusion/laminactomy , left carpal tunnel release, cataract left eye, HEART STENT X2, 10-16-15 PTBA /RT LEG STENT, rt hand x2 surgery d/t infection, umb hernia, past picc line, AICD [address]hatia Past Anesthesia/Blood Transfusion Reactions: Postoperative Nausea & Vomiting (PONV) Additional Past Anesthesia/Blood Transfusion Reaction / Comment(s): .PT STATED AFTER HAND SX HAD DIFFICULTY URINATING AND PAIN MEDS CONSTIPATE HIM. Date of Last Stent Placement:: 12/2013 Type of Cardiac Device: AICD Device Placement Date:: 2014 Smoking Status: Current every day smoker - Past Family History Mother Family Medical History: Pneumonia Additional Family Medical History / Comment(s): PT STATED MOM WAS HEALTHY BUT IN OLDER AGE GOT PNE- FROM COMPLICATIONS OF PNE. Father Family Medical History: Coronary Artery Disease (CAD), Osteoarthritis (OA) Additional Family Medical History / Comment(s): ULCERS, HEART PROBLEMS HAD BYPASS,BACK SURGURY Medications and Allergies Home Medications Medication Instructions Recorded Confirmed Type Aspirin [Adult Low Dose Aspirin EC] 81 mg PO DAILY 04/10/16 05/18/19 History Atorvastatin [Lipitor] 80 mg PO HS 08/06/16 05/18/19 History Nitroglycerin Sl Tabs [Nitrostat] 0.4 mg SL Q5M PRN 11/02/18 05/18/19 History Sertraline [Zoloft] 50 mg PO DAILY 11/02/18 05/18/19 History Mirtazapine [Remeron] 15 mg PO HS #3 tablet 01/25/19 05/18/19 Rx Acetaminophen Tab [Tylenol Tab] 650 mg PO Q6H PRN 05/18/19 05/18/19 History Cholecalciferol [Vitamin D3 (25 5,000 unit PO DAILY 05/18/19 05/18/19 History Mcg = 1000 Iu)] Collagenase [Santyl] 1 applic TOPICAL DAILY 05/18/19 05/18/19 History Furosemide [Lasix] 40 mg PO DAILY 05/18/19 05/18/19 History Isosorbide Mononitrate [Isosorbide 30 mg PO DAILY 05/18/19 05/18/19 History Mononitrate ER] Loperamide [Imodium] 2 mg PO QID PRN 05/18/19 05/18/19 History Metoprolol Tartrate [Lopressor] 12.5 mg PO BID 05/18/19 05/18/19 History Potassium Chloride ER [K-Dur 10] 10 meq PO DAILY 05/18/19 05/18/19 History Promethazine [Phenergan] 12.5 mg PO Q6H PRN 05/18/19 05/18/19 History oxyCODONE-APAP 5-325MG [Percocet 1 tab PO Q4H PRN 05/18/19 05/18/19 History 5-325 mg] Allergies Allergy/AdvReac Type Severity Reaction Status Date / Time Penicillins Allergy Rash/Hives Verified 05/18/19 10:35 gabapentin [From Neurontin] AdvReac Nausea Verified 05/18/19 10:35 Physical Exam Vitals: Vital Signs Temp Pulse Resp BP Pulse Ox 05/18/19 06:08 81 18 127/61 100 05/18/19 04:53 20 05/18/19 04:15 98.8 F 78 18 120/66 100 Intake and Output 05/17/19 05/18/19 05/18/19 22:59 06:59 14:59 Other: Weight 86.183 kg Results 05/18/19 04:55 05/18/19 04:55 Cardiac Enzymes 05/18/19 05/18/19 Range/Units 04:55 04:55 AST 45 (17-59) U/L Troponin I 0.042 H* (0.000-0.034) ng/mL Coagulation 05/18/19 Range/Units 04:55 PT 10.9 (9.0-12.0) sec APTT 29.0 (22.0-30.0) sec CBC 05/18/19 Range/Units 04:55 WBC 12.0 H (3.8-10.6) k/uL RBC 3.22 L (4.30-5.90) m/uL Hgb 10.0 L (13.0-17.5) gm/dL Hct 29.4 L (39.0-53.0) % Plt Count 182 (150-450) k/uL Comprehensive Metabolic Panel 05/18/19 Range/Units 04:55 Sodium 140 (137-145) mmol/L Potassium 3.4 L (3.5-5.1) mmol/L Chloride 98 (98-107) mmol/L Carbon Dioxide 31 H (22-30) mmol/L BUN 52 H (9-20) mg/dL Creatinine 2.68 H (0.66-1.25) mg/dL Glucose 202 H (74-99) mg/dL Calcium 9.1 (8.4-10.2) mg/dL AST 45 (17-59) U/L ALT 17 L (21-72) U/L Alkaline Phosphatase 206 H (38-126) U/L Total Protein 7.2 (6.3-8.2) g/dL Albumin 3.7 (3.5-5.0) g/dL Current Medications Generic Name Dose Route Start Last Admin Trade Name Freq PRN Reason Stop Dose Admin Acetaminophen 650 mg 05/18/19 06:17 Tylenol Tab PO Q6HR PRN Mild Pain or Fever > 100.5 Guaifenesin 200 mg 05/18/19 10:53 Robitussin PO Q6H PRN Cough Sodium Chloride 1,000 mls @ 20 mls/hr 05/18/19 06:30 Saline 0.9% IV .Q24H CHEVY Insulin Aspart 0 unit 05/18/19 12:30 Novolog SQ ACHS [facility] Protocol Naloxone HCl 0.2 mg 05/18/19 06:17 Narcan IV Q2M PRN Opioid Reversal Intake and Output 05/17/19 05/18/19 05/18/19 22:59 06:59 14:59 Other: Weight 86.183 kg 05/18/19 04:55 05/18/19 04:55
[2019-05-18] MEDS: METOPROLOL TARTRATE 12.5 MG TAB PO SCH ×2 (12:50→20:44)
[2019-05-18] MEDS: ISOSORBIDE MONONITRATE ER 30 MG TAB.ER.24H PO SCH (12:50)
[2019-05-18] MEDS: ACETAMINOPHEN TAB 325 MG TAB PO PRN (13:27)
[2019-05-18] MEDS: ASPIRIN 81 MG PO SCH (13:27)
[2019-05-18] MEDS: guaiFENesin SYRUP 100MG/5ML 200 MG/10 ML CUP PO PRN ×2 (13:27→20:46)
[2019-05-18] MEDS: INSULIN ASPART (NovoLOG) 100 UNIT/ML VIAL SQ SCH ×3 (13:28→20:44)
[2019-05-18] MEDS: FUROSEMIDE 10 MG/ML 4 ML VIAL IV SCH ×2 (13:28→20:44)
[2019-05-18] MEDS: POTASSIUM CHLORIDE ER 10 MEQ TAB.ER.PRT PO SCH (13:28)
--- NOTE | 2019-05-18 14:44 | CDI ---
Documentation Clarification Form Date: 05/18/2019 2:37:57 PM From: Luci VallesEspinozaAVILA otoole, CCDS Admit Date: 05/18/2019 6:17:00 AM Patient Name: Karlos Mathews Visit Number: [id number] Discharge Date: ATTENTION: The Clinical Documentation Specialists (CDI) and [facility] Coding Staff appreciate your assistance in clarifying documentation. Please respond to the clarification below the line at the bottom and electronically sign. The CDI & [facility] Coding staff will review the response and follow-up if needed. Please note: Queries are made part of the Legal Health Record. If you have any questions, please contact the author of this message via ITS. Dr. Gian Chavira: Per the cardiology consultation assessment: "Acute on chronic renal failure". nos. History/Risk Factors: Systolic CHF, CKD, Ischemic cardiomyopathy sp AICD, CAD sp stents, PVD with stents, Hypertension, Hyperlipidemia, COPD, DM with lower extremity ulcers. Recent admit to rehab for antibiotic treatment of osteomyelitis of left heel. Clinical Indicators: Presented with SOB & weakness. Diagnosed with acute on chronic systolic CHF & acute on chronic kidney failure. Current BUN 52^, Creatinine 2.68^ & GFR 22. Patients Baseline BUN/CR/GFR: unknown or not documented, nephrology is not consulted. Treatment: IV fluid bolus, IV MagSulfate, IV Narcan, IV Lasix, daily weights. In order to capture the severity of condition, please clarify if the condition signifies: CKD Stage 1 (GFR > 90) CKD Stage 2 (GFR 60-89) CKD Stage 3 (GFR 30-59) CKD Stage 4 (GFR 15-29) CKD Stage 5 (GFR <15) Other, please specify Unable to determine (Last Revision: October 2017) CKD Stage 4 ( MTDD
[2019-05-18] MEDS ORDERED: LOPERAMIDE 2 MG CAP PO PRN (15:31)
[2019-05-18] MEDS ORDERED: oxyCODONE-APAP 5-325MG 1 EACH TAB PO PRN (15:31)
[2019-05-18] MEDS ORDERED: NITROGLYCERIN SL TABS 0.4 MG TAB SUBLINGUAL PRN (15:31)
[2019-05-18] MEDS ORDERED: PROMETHAZINE 25 MG TAB PO PRN (15:31)
[2019-05-18 16:29] LABS: Glucose,Whole Blood 194 mg/dL (75-99)
[2019-05-18] MEDS: SODIUM CHLORIDE 0.9% 1,000 ML IV SCH (16:54)
--- NOTE | 2019-05-18 17:49 | HP ---
HISTORY AND PHYSICAL DATE OF SERVICE: 05/18/2019 CHIEF COMPLAINTS: Weakness and shortness of breath. HISTORY OF PRESENT ILLNESS: This 74-year-old gentleman with a past medical history of multiple medical problems, including COPD, CHF, diabetes mellitus, hypertension, hyperlipidemia, history of myocardial infarction, rheumatoid arthritis, AICD, history of left foot ulcer, being followed by Dr. Brown in the outpatient setting, was complaining of generalized weakness, fatigue, dizziness. The patient apparently was in a halfway recently and just discharged. The patient's is apparently in the halfway and because of the multiple significant difficulties, the patient came to [facility] and was admitted for further evaluation and treatment. The initial evaluation showed a creatinine of 2.682, glucose of 202, troponin 0.42 and magnesium 1.3. His chest x-ray, which was personally reviewed by me, showed some evidence of CHF. The patient was admitted for further evaluation and treatment. Cardiology evaluation is in progress. Wound Care is also following the patient closely. The baseline creatinine was fluctuating, but the most recent value was 2.14 a week ago. There is no history of any fever, rigor or chills. PAST MEDICAL HISTORY: 1. History of CHF. 2. COPD. 3. Diabetes mellitus, type 2. 4. Hypertension. 5. Hyperlipidemia. 6. History of myocardial infarction. 7. History of MRSA, VRE. 8. AICD. 9. History of CAD, stent. HOME MEDICATIONS: 1. Percocet 5 mg q.4 p.r.n. 2. Zoloft 50 mg p.o. daily. 3. Phenergan 12.5 mg q.6 p.r.n. 4. K-Dur 10 mEq mg p.o. daily. 5. Nitrostat 0.4 sublingually p.r.n. 6. Remeron 15 mg at bedtime. 7. Lopressor 12.5 mg b.i.d. 8. Imodium 2 mg q.i.d. p.r.n. 9. Imdur ER 30 mg p.o. daily. 10.Lasix 40 mg p.o. daily. 11.Santal 1 application daily. 12.Vitamin D3 5000 daily. 13.Lipitor 80 mg at bedtime. 14.Ecotrin 81 mg. 15.Tylenol 650 q.6 p.r.n. ALLERGIES: PENICILLIN and NEURONTIN. FAMILY HISTORY: History of CAD, DJD, ulcers. SOCIAL HISTORY: History of smoking. No history of alcohol intake. REVIEW OF SYSTEMS: ENT: Diminished hearing. Diminished vision. CARDIOVASCULAR SYSTEM: As mentioned earlier. RESPIRATORY SYSTEM: As mentioned earlier. GI: No nausea, vomiting. : No dysuria or retention. NERVOUS SYSTEM: As mentioned earlier. ALLERGY/IMMUNOLOGY: No asthma, hayfever. MUSCULOSKELETAL: As mentioned earlier. HEMATOLOGY/ONCOLOGY: No history of anemia. ENDOCRINE: No history of diabetes, hypothyroidism. CONSTITUTIONAL: As mentioned earlier. DERMATOLOGY: As mentioned earlier. RHEUMATOLOGY: Negative. PSYCHIATRY: As mentioned earlier. PHYSICAL EXAMINATION: Patient alert and oriented x3. Pulse 70, blood pressure 118/58, respirations 16, temperature 96.9, pulse ox 98% on room air. HEENT: Conjunctivae normal. Oral mucosa moist. NECK: Jugular venous distention at the root of the neck. CARDIOVASCULAR SYSTEM: S1, S2 muffled. Ejection systolic murmur. RESPIRATORY SYSTEM: Breath sounds diminished at the bases. A few scattered rhonchi and crackles. ABDOMEN: Soft, non-tender. LEGS: Minimal bilateral leg edema. NERVOUS SYSTEM: Higher functions as mentioned earlier. Moves all 4 limbs. No focal motor or sensory deficit. LYMPHATICS: No lymph node palpable in neck, axillae or groin. SKIN: No ulcer, rash, bleeding. JOINTS: No active deforming arthropathy. EXAMINATION OF THE LEFT FOOT: Ulcer present. LABS: WBC 12, hemoglobin 10, sodium 140, potassium 3.4. Creatinine is 2.68. Troponin 0.042. ASSESSMENT: 1. Congestive heart failure, acute exacerbation, with acute on chronic systolic dysfunction. 2. Acute renal failure, possibly prerenal, possibly cardiorenal syndrome, multifactorial. 3. Hypokalemia. 4. Hypomagnesemia. 5. Troponin 0.042, indeterminate. 6. Anemia. 7. Increased white count. 8. Left foot wound, possible diabetic wound, improving, with left heel osteomyelitis history. 9. History of chronic obstructive pulmonary disease. 10.Diabetes mellitus, type 2. 11.Hypertension. 12.Hyperlipidemia. 13.History of rheumatoid arthritis. 14.History of myocardial infarction. 15.History of methicillin-resistant Staphylococcus aeruginosa, vancomycin-resistant Enterococcus .. 16.History of automated implantable cardioverter defibrillator. 17.History of coronary artery disease, stent. 18.FULL CODE. RECOMMENDATIONS AND DISCUSSION: In this 74-year-old gentleman who presented with multiple complex medical issues, we will monitor the patient closely, continue the current medications, continue symptomatic treatment. I recommend IV diuretics, cardiology consultation. Monitor fluid/electrolyte balance closely. Resume the home medications. Wound care consult. PT/OT evaluation. Possible ECF rehab. Prognosis is guarded because of multiple complex medical issues. Further recommendations to follow. A copy of this dictation is being forwarded to Dr. Brown, who is the primary physician. MMODL / IJN: [id number] /
[2019-05-18] MEDS: ATORVASTATIN 80 MG TAB PO SCH (20:44)
[2019-05-18] MEDS: MIRTAZAPINE 15 MG TAB PO SCH (20:45)
[2019-05-18 20:49] LABS: Glucose,Whole Blood 107 mg/dL (75-99)
[2019-05-19 07:04] LABS: Glucose,Whole Blood 174 mg/dL (75-99)
[2019-05-19] MEDS: METOPROLOL TARTRATE 12.5 MG TAB PO SCH ×2 (07:25→21:01)
[2019-05-19] MEDS: ASPIRIN 81 MG PO SCH (07:26)
[2019-05-19] MEDS: CHOLECALCIFEROL 1,000 UNIT TAB PO SCH (07:26)
[2019-05-19] MEDS: POTASSIUM CHLORIDE ER 10 MEQ TAB.ER.PRT PO SCH (07:26)
[2019-05-19] MEDS: guaiFENesin SYRUP 100MG/5ML 200 MG/10 ML CUP PO PRN (07:26)
[2019-05-19] MEDS: FUROSEMIDE 10 MG/ML 4 ML VIAL IV SCH (07:26)
[2019-05-19] MEDS: INSULIN ASPART (NovoLOG) 100 UNIT/ML VIAL SQ SCH ×4 (07:26→21:01)
[2019-05-19] MEDS: ISOSORBIDE MONONITRATE ER 30 MG TAB.ER.24H PO SCH (07:26)
[2019-05-19] MEDS: COLLAGENASE 250 UNIT/GM OINTMENT 30 GM TUBE TOPICAL SCH (07:27)
[2019-05-19] MEDS: SODIUM CHLORIDE 0.9% 1,000 ML IV SCH (07:27)
[2019-05-19 08:46] LABS: Basophils # (A) 0.1 k/uL (0-0.2); Basophils % (A) 1 %; Eosinophils # (A) 0.3 k/uL (0-0.7); Eosinophils % (A) 3 %; HCT 32.5 % (39.0-53.0); HGB 10.6 gm/dL (13.0-17.5); Lymphocytes # (A) 0.7 k/uL (1.0-4.8); Lymphocytes % (A) 8 %; MCH 30.3 pg (25.0-35.0); MCHC 32.7 g/dL (31.0-37.0); MCV 92.7 fL (80.0-100.0); Mean Platelet Volume 7.5; Monocytes # (A) 0.4 k/uL (0-1.0); Monocytes % (A) 5 %; Neutrophils # (A) 7.6 k/uL (1.3-7.7); Neutrophils % (A) 83 %; Platelet Count 185 k/uL (150-450); RBC 3.51 m/uL (4.30-5.90); RDW 15.5 % (11.5-15.5); WBC 9.2 k/uL (3.8-10.6)
[2019-05-19] MEDS: SERTRALINE 50 MG TAB PO SCH (08:48)
[2019-05-19] MEDS: ACETAMINOPHEN TAB 325 MG TAB PO PRN (08:48)
[2019-05-19 09:01] LABS: Calcium 9.2 mg/dL (8.4-10.2); Magnesium 1.5 mg/dL (1.6-2.3); Potassium 3.2 mmol/L (3.5-5.1)
[2019-05-19] MEDS ORDERED: Magnesium Replacement Protocol 1 EACH MISC MISCELLANE PRN (09:41)
[2019-05-19] MEDS ORDERED: POTASSIUM CHLORIDE ER 20 MEQ TAB.ER PO STA (09:42)
--- NOTE | 2019-05-19 10:03 | P.NPCON ---
History of Present Illness - Reason for Consult acute renal failure - History of Present Illness Reason for consultation: Acute kidney injury History of present illness: Patient is a 74-year-old male seen in renal consultation for acute kidney injury. Patient's creatinine on admission was 2.68 and is 2.34 today. Patient's creatinine in February 2019 was as low as 0.94. Patient was recently discharged home from her creatinine slowly. He currently has a wound VAC for left foot osteomyelitis. Patient states he was home and while he was in the bathroom he was unable to get up. Patient felt extremely weak and was brought to the hospital. He denies any personal or family history of kidney disease. Admits to good urine output. No hematuria or dysuria. No vomiting or diarrhea. Denies regular use of nonsteroidals. Oral intake is fair. Hemodynamically stable. No significant hypotension. Chest x-ray was suggestive of mild vascular congestion. He's currently receiving Lasix 40 mg IV twice daily. Patient does have history of diabetes mellitus and states he was taking metformin outpatient. Vital signs are stable. General: The patient appeared well nourished and normally developed. HEENT: Head exam is unremarkable. Neck is without jugular venous distension. LUNGS: Lungs are clear to auscultation and percussion. Breath sounds decreased. HEART: Rate and Rhythm are regular. First and second heart sounds normal. No murmurs, rubs or gallops. ABDOMEN: Abdominal exam reveals normal bowel sounds. Non-tender and non- distended. No evidence of peritonitis. EXTREMITITES: No clubbing, cyanosis, or edema. Wrapped. No obvious drainage. Past Medical History Past Medical History: Heart Failure, COPD, Diabetes Mellitus, Hyperlipidemia, Hypertension, Myocardial Infarction (ID), Rheumatoid Arthritis (RA) Additional Past Medical History / Comment(s): L heel osteomylitis-pt states supposed to get wound vac, current R leg sore, pt concerned might have sore on coccyx currenly, NIDDM type II, neuropathy bilateral hands/legs and feet, past anemia. Last Myocardial Infarction Date:: 2010 History of Any Multi-Drug Resistant Organisms: MRSA, VRE Date of last positivie culture/infection: 12/08/15 MDRO Source:: RIGHT FOOT MRSA AND VRE Past Surgical History: AICD, Appendectomy, Cholecystectomy, Heart Cat heterization With Stent, Hernia Repair, Tonsillectomy Additional Past Surgical History / Comment(s): cervical fusion/laminactomy , left carpal tunnel release, cataract left eye, HEART STENT X2, 3 PTBA /RT LEG STENT, rt hand x2 surgery d/t infection, umb hernia, past picc line, AICD [address] Bhatia Past Anesthesia/Blood Transfusion Reactions: Postoperative Nausea & Vomiting (PONV) Additional Past Anesthesia/Blood Transfusion Reaction / Comment(s): .PT STATED AFTER HAND SX HAD DIFFICULTY URINATING AND PAIN MEDS CONSTIPATE HIM. Date of Last Stent Placement:: 12/2013 Type of Cardiac Device: AICD Device Placement Date:: 2014 Smoking Status: Current every day smoker - Past Family History Mother Family Medical History: Pneumonia Additional Family Medical History / Comment(s): PT STATED MOM WAS HEALTHY BUT IN OLDER AGE GOT PNE- FROM COMPLICATIONS OF PNE. Father Family Medical History: Coronary Artery Disease (CAD), Osteoarthritis (OA) Additional Family Medical History / Comment(s): ULCERS, HEART PROBLEMS HAD BYPASS,BACK SURGURY Medications and Allergies Home Medications Medication Instructions Recorded Confirmed Type Aspirin [Adult Low Dose Aspirin EC] 81 mg PO DAILY 04/10/16 05/18/19 History Atorvastatin [Lipitor] 80 mg PO HS 08/06/16 05/18/19 History Nitroglycerin Sl Tabs [Nitrostat] 0.4 mg SL Q5M PRN 11/02/18 05/18/19 History Sertraline [Zoloft] 50 mg PO DAILY 11/02/18 05/18/19 History Mirtazapine [Remeron] 15 mg PO HS #3 tablet 01/25/19 05/18/19 Rx Acetaminophen Tab [Tylenol Tab] 650 mg PO Q6H PRN 05/18/19 05/18/19 History Cholecalciferol [Vitamin D3 (25 5,000 unit PO DAILY 05/18/19 05/18/19 History Mcg = 1000 Iu)] Collagenase [Santyl] 1 applic TOPICAL DAILY 05/18/19 05/18/19 History Furosemide [Lasix] 40 mg PO DAILY 05/18/19 05/18/19 History Isosorbide Mononitrate [Isosorbide 30 mg PO DAILY 05/18/19 05/18/19 History Mononitrate ER] Loperamide [Imodium] 2 mg PO QID PRN 05/18/19 05/18/19 History Metoprolol Tartrate [Lopressor] 12.5 mg PO BID 05/18/19 05/18/19 History Potassium Chloride ER [K-Dur 10] 10 meq PO DAILY 05/18/19 05/18/19 History Promethazine [Phenergan] 12.5 mg PO Q6H PRN 05/18/19 05/18/19 History oxyCODONE-APAP 5-325MG [Percocet 1 tab PO Q4H PRN 05/18/19 05/18/19 History 5-325 mg] Allergies Allergy/AdvReac Type Severity Reaction Status Date / Time Penicillins Allergy Rash/Hives Verified 05/18/19 10:35 gabapentin [From Neurontin] AdvReac Nausea Verified 05/18/19 10:35 Physical Exam Vitals: Vital Signs Temp Pulse Pulse Pulse Resp BP Pulse Ox 05/19/19 04:57 97.7 F 70 16 133/69 94 L 05/18/19 21:14 97.7 F 67 16 103/53 05/18/19 12:30 96.9 F L 70 16 118/58 98 Intake and Output 05/18/19 05/19/19 05/19/19 22:59 06:59 14:59 Intake Total 160 Output Total 300 Balance -140 Intake: Intake, IV Titration 160 Amount Sodium Chloride 0.9% 1, 160 000 ml @ 20 mls/hr IV . Q24H [facility] Rx#:[id number] Output: Urine 300 Other: Voiding Method Urinal Urinal Urinal # Voids 1 Weight 87.317 kg Results - Lab Results Most recent lab results Calcium 9.2 mg/dL (8.4-10.2) 05/19/19 08:00 Magnesium 1.5 mg/dL (1.6-2.3) L 05/19/19 08:00 05/19/19 08:00 05/19/19 08:00 Assessment and Plan Plan: Assessment: 1. Acute kidney injury mostly prerenal secondary to cardiorenal syndrome. Creatinine 2.68 on admission and is 2.34 today. Creatinine February 2019 was as low as 0.94. 2. Left foot ulcer being followed by vascular surgery. 3. Recent left foot osteomyelitis status post antibiotics. 4. Diabetes mellitus. 5. Volume overload. 6. Hypokalemia secondary to diuresis. 7. Hypomagnesemia secondary to diuresis. 8. Acute on chronic systolic CHF with ejection fraction of 20-25%. 9. Rule out chronic kidney disease. Patient does have proteinuria on UA which will need further workup outpatient. Plan: Change Lasix to 40 mg orally twice daily. Potassium and magnesium being replaced. Check renal ultrasound. Avoid nephrotoxins. Continue to monitor renal function and urine output. Thank you for the consultation. I will continue to follow patient with you during his hospital stay.
--- NOTE | 2019-05-19 10:44 | P.PN ---
Subjective This is a pleasant 74-year-old male past medical history significant for coronary artery disease status post stent placement to the proximal LAD and PLV branch of RCA with intermediate disease involving the left main and left circumflex, ischemic cardiomyopathy, chronic systolic heart failure, status post AICD, peripheral vascular disease status post atherectomy and balloon angioplasty of the right popliteal artery 2016, COPD, hypertension, dyslipidemia and chronic osteomyelitis. He follows in the office with Dr. Boyle. He is seen a nd examined sitting up in the chair having breakfast. Wound vac in place. He states overall he feels quite weak. He denies chest pain, shortness of breath, dizziness or palpitations. Currently maintained on IV lasix. Laboratory data reviewed, WBC 9.2, hemoglobin 10.6, platelets 185, sodium 144, potassium 3.2, creatinine 2.34 with GFR of 26 and magnesium 1.5. Blood pressure 133/69 heart rate 70 afebrile maintaining oxygen saturation on nasal cannula. GENERAL: This is a 74-year-old male in no apparent distress at the time of my examination. HEENT: Head is atraumatic, normocephalic. Pupils are equal, round. Sclerae anicteric. Conjunctivae are clear. Mucous membranes of the mouth are moist. Neck is supple. There is no jugular venous distention. No carotid bruit is heard. LUNGS: Clear to auscultation no wheezes, rales or rhonchi. No chest wall tenderness is noted on palpation or with deep breathing. HEART: Regular rate and rhythm without murmurs, rubs or gallops. S1 and S2 heard . EXTREMITIES: No evidence of peripheral edema and no calf tenderness noted. ASSESSMENT Shortness of breath and weakness, mild acute exacerbation of chronic systolic heart failure Acute on chronic renal failure Hypomagnesemia Hypokalemia Leukocytosis Ischemic cardiomyopathy s/p AICD Coronary artery disease s/p stent placement Peripheral vascular disease Hypertension Dyslipdemia COPD Chronic lower extremity non-healing wounds PLAN Transition to oral diuretics. Obtain nephrology consultation and recommendations. Replace potassium and magnesium. Repeat electrolytes and renal function in the morning. Nurse Practitioner note has been reviewed, I agree with a documented findings and plan of care. Patient was seen and examined. Objective - Vital Signs Vital signs: Vital Signs Temp 97.7 F 05/19/19 04:57 Pulse 70 05/19/19 04:57 Resp 16 05/19/19 04:57 BP 133/69 05/19/19 04:57 Pulse Ox 94 L 05/19/19 04:57 Intake & Output 05/18/19 05/19/19 05/19/19 18:59 06:59 18:59 Intake Total 160 Output Total 300 Balance -140 Weight 86.183 kg 87.317 kg Intake: Intake, IV Titration 160 Amount Sodium Chloride 0.9% 1, 160 000 ml @ 20 mls/hr IV . Q24H [facility] Rx#:[id number] Output: Urine 300 Other: Voiding Method Urinal Urinal Urinal # Voids 1 - Labs CBC & Chem 7: 05/19/19 08:00 05/19/19 08:00 Labs: Abnormal Lab Results - Last 24 Hours (Table) 05/18/19 05/18/19 05/18/19 Range/Units 11:31 16:28 20:40 RBC (4.30-5.90) m/uL Hgb (13.0-17.5) gm/dL Hct (39.0-53.0) % Lymphocytes # (1.0-4.8) k/uL Potassium (3.5-5.1) mmol/L Carbon Dioxide (22-30) mmol/L BUN (9-20) mg/dL Creatinine (0.66-1.25) mg/dL Glucose (74-99) mg/dL POC Glucose (mg/dL) 197 H 194 H 107 H (75-99) mg/dL Magnesium (1.6-2.3) mg/dL 05/19/19 05/19/19 05/19/19 Range/Units 07:03 08:00 08:00 RBC 3.51 L (4.30-5.90) m/uL Hgb 10.6 L (13.0-17.5) gm/dL Hct 32.5 L (39.0-53.0) % Lymphocytes # 0.7 L (1.0-4.8) k/uL Potassium 3.2 L (3.5-5.1) mmol/L Carbon Dioxide 32 H (22-30) mmol/L BUN 46 H (9-20) mg/dL Creatinine 2.34 H (0.66-1.25) mg/dL Glucose 163 H (74-99) mg/dL POC Glucose (mg/dL) 174 H (75-99) mg/dL Magnesium 1.5 L (1.6-2.3) mg/dL
[2019-05-19 11:21] LABS: Glucose,Whole Blood 302 mg/dL (75-99)
[2019-05-19] MEDS: MAGNESIUM SULFATE-D5W PMX 1 GM in DEXTROSE/WATER 1 100ML.BAG IVPB SCH ×2 (11:49→12:47)
--- NOTE | 2019-05-19 12:25 | US ---
EXAMINATION TYPE: US kidneys/renal and bladder DATE OF EXAM: 05/19/2019 COMPARISON: CLINICAL HISTORY: [email or web address]. pain Exam performed portable EXAM MEASUREMENTS: Right Kidney: 12.7 x 5.5 x 5.4 cm Left Kidney: 12.1 x 4.9 x 5.6 cm Right Kidney: Hypoechoic solid appearing lesion visualized superior to right kidney, unable to accura tely determine origin = 3.2 x 2.8 x 3.0 cm Left Kidney: Upper pole cystic appearing lesion = 2.0 x 2.3 x 2.4 cm Bladder: distended, anechoic Bilateral Jets not seen Enlarged spleen = 14.0 cm Left pleural effusion visualized IMPRESSION: 1. Hypoechoic solid oval nodule superior to the right kidney of indeterminate origin. Possibly relate d to adrenal mass. Recommend follow-up CT scan. 2. Splenomegaly 3. Left pleural effusion. 4. Left renal cyst with septation likely related to Bosniak classification 2 cyst.
[2019-05-19 12:57] VITALS: BMI 26.8
[2019-05-19] MEDS: FUROSEMIDE 40 MG TAB PO SCH (16:44)
[2019-05-19 17:23] LABS: Glucose,Whole Blood 191 mg/dL (75-99)
[2019-05-19 20:17] LABS: Glucose,Whole Blood 258 mg/dL (75-99)
[2019-05-19] MEDS: ATORVASTATIN 80 MG TAB PO SCH (21:01)
[2019-05-19] MEDS: MIRTAZAPINE 15 MG TAB PO SCH (21:01)
[2019-05-20] MEDS: guaiFENesin SYRUP 100MG/5ML 200 MG/10 ML CUP PO PRN (00:32)
[2019-05-20 07:09] LABS: Glucose,Whole Blood 140 mg/dL (75-99)
[2019-05-20 07:41] LABS: Basophils # (A) 0.1 k/uL (0-0.2); Basophils % (A) 1 %; Eosinophils # (A) 0.3 k/uL (0-0.7); Eosinophils % (A) 4 %; HCT 29.4 % (39.0-53.0); HGB 9.6 gm/dL (13.0-17.5); Lymphocytes # (A) 0.7 k/uL (1.0-4.8); Lymphocytes % (A) 10 %; MCH 30.3 pg (25.0-35.0); MCHC 32.8 g/dL (31.0-37.0); MCV 92.5 fL (80.0-100.0); Mean Platelet Volume 7.8; Monocytes # (A) 0.4 k/uL (0-1.0); Monocytes % (A) 5 %; Neutrophils # (A) 5.8 k/uL (1.3-7.7); Neutrophils % (A) 79 %; Platelet Count 177 k/uL (150-450); RBC 3.18 m/uL (4.30-5.90); RDW 15.4 % (11.5-15.5); WBC 7.3 k/uL (3.8-10.6)
[2019-05-20] MEDS: INSULIN ASPART (NovoLOG) 100 UNIT/ML VIAL SQ SCH ×4 (07:50→21:13)
[2019-05-20 08:10] LABS: Magnesium 1.7 mg/dL (1.6-2.3); Potassium 3.7 mmol/L (3.5-5.1)
--- NOTE | 2019-05-20 09:41 | P.PN ---
Subjective Patient is seen in follow-up for acute kidney injury. Creatinine was 2.68 on admission and is 2.0 today. Dyspnea is improved. Currently maintained on Lasix 40 mg orally twice daily. Admits to good urine output. Vital signs are stable. General: The patient appeared well nourished and normally developed. HEENT: Head exam is unremarkable. Neck is without jugular venous distension. LUNGS: Lungs are clear to auscultation and percussion. Breath sounds decreased. HEART: Rate and Rhythm are regular. First and second heart sounds normal. No murmurs, rubs or gallops. ABDOMEN: Abdominal exam reveals normal bowel sounds. Non-tender and non-diste nded. No evidence of peritonitis. EXTREMITITES: Trace edema. Wrapped. Objective - Vital Signs Vital signs: Vital Signs Temp 97.6 F 05/20/19 08:13 Pulse 68 05/20/19 08:14 Resp 15 05/20/19 08:13 BP 129/74 05/20/19 08:13 Pulse Ox 98 05/20/19 08:27 Intake & Output 05/19/19 05/20/19 05/20/19 18:59 06:59 18:59 Output Total 200 200 Balance -200 -200 Weight 87.317 kg Output: Urine 200 200 Other: Voiding Method Urinal Urinal # Voids 4 4 - Labs CBC & Chem 7: 05/20/19 07:18 05/20/19 07:18 Labs: Abnormal Lab Results - Last 24 Hours (Table) 05/19/19 05/19/19 05/19/19 Range/Units 11:19 17:22 20:16 RBC (4.30-5.90) m/uL Hgb (13.0-17.5) gm/dL Hct (39.0-53.0) % Lymphocytes # (1.0-4.8) k/uL Carbon Dioxide (22-30) mmol/L BUN (9-20) mg/dL Creatinine (0.66-1.25) mg/dL Glucose (74-99) mg/dL POC Glucose (mg/dL) 302 H 191 H 258 H (75-99) mg/dL 05/20/19 05/20/19 05/20/19 Range/Units 07:08 07:18 07:18 RBC 3.18 L (4.30-5.90) m/uL Hgb 9.6 L (13.0-17.5) gm/dL Hct 29.4 L (39.0-53.0) % Lymphocytes # 0.7 L (1.0-4.8) k/uL Carbon Dioxide 32 H (22-30) mmol/L BUN 46 H (9-20) mg/dL Creatinine 2.00 H (0.66-1.25) mg/dL Glucose 149 H (74-99) mg/dL POC Glucose (mg/dL) 140 H (75-99) mg/dL Assessment and Plan Plan: Assessment: 1. Acute kidney injury mostly prerenal secondary to cardiorenal syndrome. Creatinine 2.68 on admission and is 2.0 today. Creatinine February 2019 was as low as 0.94. No hydronephrosis noted on kidney ultrasound. 2. Left foot ulcer being followed by vascular surgery. 3. Recent left foot osteomyelitis status post antibiotics. 4. Diabetes mellitus. 5. Volume overload. Improving with diuresis. 6. Hypokalemia secondary to diuresis. Better. 7. Hypomagnesemia secondary to diuresis. Better. 8. Acute on chronic systolic CHF with ejection fraction of 20-25%. 9. Rule out chronic kidney disease. Patient does have proteinuria on UA which will need further workup outpatient. 10. Right kidney nodule. Will need to be monitored outpatient. Plan: Maintain Lasix 40 mg orally twice daily. Avoid nephrotoxins. Continue to monitor renal function and urine output.
[2019-05-20] MEDS: CHOLECALCIFEROL 1,000 UNIT TAB PO SCH (09:43)
[2019-05-20] MEDS: SERTRALINE 50 MG TAB PO SCH (09:44)
[2019-05-20] MEDS: FUROSEMIDE 40 MG TAB PO SCH ×2 (09:44→17:32)
[2019-05-20] MEDS: ISOSORBIDE MONONITRATE ER 30 MG TAB.ER.24H PO SCH (09:44)
[2019-05-20] MEDS: ASPIRIN 81 MG PO SCH (09:44)
[2019-05-20] MEDS: POTASSIUM CHLORIDE ER 10 MEQ TAB.ER.PRT PO SCH (09:44)
[2019-05-20] MEDS: METOPROLOL TARTRATE 12.5 MG TAB PO SCH ×2 (10:43→21:14)
[2019-05-20] MEDS: SODIUM CHLORIDE 0.9% 1,000 ML IV SCH (11:23)
[2019-05-20] MEDS: COLLAGENASE 250 UNIT/GM OINTMENT 30 GM TUBE TOPICAL SCH (11:23)
[2019-05-20 11:28] LABS: Glucose,Whole Blood 210 mg/dL (75-99)
[2019-05-20 16:54] LABS: Glucose,Whole Blood 257 mg/dL (75-99)
--- NOTE | 2019-05-20 19:29 | P.PN ---
Progress Note - Text Progress Note Date: 05/20/19 Chief Complaint: short of breath Interval history: This is a pleasant 73-year-old patient follows a Dr. Brown. Chronic stable medical conditions include , diabetes, hyperlipidemia, hypertension, peripheral neuropathy, COPD, coronary artery disease with prior stent. Left heel acute osteomyelitis and just completed a course of antibiotics 2 days ago. Chronic right foot ulceration. Has a wound VAC on the right foot. Patient was recently discharged from the [facility] to home. Admitted with acute CHF exacerbation . Today-breathing much improved. Tolerating a diet. Seen by vascular surgery. Left foot wound is healing well. Review of systems: Was done for constitutional, cardiovascular, GI, pulmonary. relevant finding as above Active Medications Acetaminophen (Tylenol Tab) 650 mg PO Q6HR PRN PRN Reason: Mild Pain or Fever > 100.5 Last Admin: 05/19/19 08:48 Dose: 650 mg Documented by: Aspirin (Aspirin) 81 mg PO DAILY [facility] Last Admin: 05/20/19 09:44 Dose: 81 mg Documented by: Atorvastatin Calcium (Lipitor) 80 mg PO HS [facility] Last Admin: 05/19/19 21:01 Dose: 80 mg Documented by: Cholecalciferol (Vitamin D3 (25 Mcg = 1000 Iu)) 5,000 unit PO DAILY [facility] Last Admin: 05/20/19 09:43 Dose: 5,000 unit Documented by: Furosemide (Lasix) 40 mg PO BID@0900,1600 [facility] Last Admin: 05/20/19 17:32 Dose: 40 mg Documented by: Guaifenesin (Robitussin) 200 mg PO Q6H PRN PRN Reason: Cough Last Admin: 05/20/19 00:32 Dose: 200 mg Documented by: Sodium Chloride (Saline 0.9%) 1,000 mls @ 20 mls/hr IV .Q24H [facility] Last Admin: 05/20/19 11:23 Dose: Not Given Documented by: Insulin Aspart (Novolog) 0 unit SQ [facility]; Protocol Last Admin: 05/20/19 17:31 Dose: 4 unit Documented by: Isosorbide Mononitrate (Imdur) 30 mg PO DAILY [facility] Last Admin: 05/20/19 09:44 Dose: 30 mg Documented by: Loperamide HCl (Imodium) 2 mg PO QID PRN PRN Reason: Loose Stool Metoprolol Tartrate (Lopressor) 12.5 mg PO BID [facility] Last Admin: 05/20/19 10:43 Dose: 12.5 mg Documented by: Mirtazapine (Remeron) 15 mg PO HS [facility] Last Admin: 05/19/19 21:01 Dose: 15 mg Documented by: Miscellaneous Information (Magnesium Per Protocol) 1 each MISCELLANE DAILY PRN; Protocol PRN Reason: Per Protocol Naloxone HCl (Narcan) 0.2 mg IV Q2M PRN PRN Reason: Opioid Reversal Nitroglycerin (Nitrostat) 0.4 mg SUBLINGUAL Q5M PRN PRN Reason: Chest Pain Collagenase 250 Unit /Gm Ointment 30 Gm Tube 1 each TOPICAL DAILY [facility] Last Admin: 05/20/19 11:23 Dose: Not Given Documented by: Oxycodone/Acetaminophen (Percocet 5-325) 1 each PO Q4H PRN PRN Reason: SEVERE Pain Potassium Chloride (K-Dur 10) 10 meq PO DAILY [facility] Last Admin: 05/20/19 09:44 Dose: 10 meq Documented by: Promethazine HCl (Phenergan) 12.5 mg PO Q6H PRN PRN Reason: Nausea And Vomiting Sertraline HCl (Zoloft) 50 mg PO DAILY [facility] Last Admin: 05/20/19 09:44 Dose: 50 mg Documented by: Physical examination: VITAL SIGNS: 97.6, 68, 15, 129/74, 97% room air GENERAL: Sitting up in a chair, awake EYES: Pupils equal. Conjunctiva normal. HEENT: External appearance of nose and ears normal, oral cavity grossly normal. NECK: JVD not raised; masses not palpable. HEART: First and second heart sounds are normal; decreased edema. LUNGS: Respiratory rate normal; decreased breath sounds. ABDOMEN: Soft, nontender, liver spleen not palpable, no masses palpable. PSYCH: Alert and oriented x3; mood and affect normal. EXTREMITY: Dressing of both lower extremity Investigations, reviewed in the clinical context White count 7.3 hemoglobin 9.6 potassium 3.7 bun 26 creatinine 2.0 Abdominal ultrasound-no dual on the right kidney, splenomegaly, left pleural effusion Assessment: -Acute on chronic congestive heart exacerbation from systolic dysfunction EF 20/25 percent, improved -Acute left calcaneal osteomyelitis, patient completed a course of antibiotics 2 days ago -Chronic right heel ulcer and left heel ulcer from diabetic wound, on a wound VAC -Diabetes mellitus type 2 -hyperlipidemia -Essential hypertension -Peripheral neuropathy -COPD in a current smoker -coronary artery disease with stents -Acute kidney injury likely from cardiorenal syndrome -Splenomegaly Plan: Plan was to patient be discharged. He wanted to go home. I was called by the nurse case manager, later in the evening that the patient refused 4 measurements on the foot for the wound VAC replaced. His discharge was held. I will go down and talk to the patient.
[2019-05-20 20:46] LABS: Glucose,Whole Blood 201 mg/dL (75-99)
[2019-05-20] MEDS: MIRTAZAPINE 15 MG TAB PO SCH (21:14)
[2019-05-20] MEDS: ATORVASTATIN 80 MG TAB PO SCH (21:14)
[2019-05-21 07:15] LABS: Glucose,Whole Blood 301 mg/dL (75-99)
[2019-05-21 08:08] LABS: Basophils % (A) 1 %; Eosinophils # (A) 0.3 k/uL (0-0.7); Eosinophils % (A) 4 %; HCT 27.2 % (39.0-53.0); HGB 8.9 gm/dL (13.0-17.5); Lymphocytes # (A) 0.8 k/uL (1.0-4.8); Lymphocytes % (A) 12 %; MCH 30.4 pg (25.0-35.0); MCHC 32.7 g/dL (31.0-37.0); MCV 92.8 fL (80.0-100.0); Monocytes # (A) 0.4 k/uL (0-1.0); Monocytes % (A) 6 %; Neutrophils # (A) 4.9 k/uL (1.3-7.7); Neutrophils % (A) 76 %; Platelet Count 172 k/uL (150-450); RBC 2.93 m/uL (4.30-5.90); RDW 15.5 % (11.5-15.5); WBC 6.4 k/uL (3.8-10.6)
[2019-05-21] MEDS: INSULIN ASPART (NovoLOG) 100 UNIT/ML VIAL SQ SCH ×2 (08:22→12:31)
[2019-05-21 08:33] LABS: Calcium 8.9 mg/dL (8.4-10.2); Magnesium 1.6 mg/dL (1.6-2.3); Potassium 3.7 mmol/L (3.5-5.1)
--- NOTE | 2019-05-21 08:48 | P.PN ---
Subjective Patient is seen in follow-up for acute kidney injury. Creatinine was 2.68 on admission and is 1.87 today. Dyspnea is improved. Currently maintained on Lasix 40 mg orally twice daily. Admits to good urine output. No active complaints at this time. Vital signs are stable. General: The patient appeared well nourished and normally developed. HEENT: Head exam is unremarkable. Neck is without jugular venous distension. LUNGS: Lungs are clear to auscultation and percussion. Breath sounds decreased. HEART: Rate and Rhythm are regular. First and second heart sounds normal. No murmurs, rubs or gallops. ABDOMEN: Abdominal exam reveals normal bowel sounds. Non-tender and non- distended. No evidence of peritonitis. EXTREMITITES: Trace edema. Wrapped. Objective - Vital Signs Vital signs: Vital Signs Temp 97.0 F L 05/21/19 07:22 Pulse 71 05/21/19 07:22 Resp 16 05/21/19 07:22 BP 122/64 05/21/19 07:22 Pulse Ox 97 05/21/19 05:00 Intake & Output 05/20/19 05/21/19 05/21/19 18:59 06:59 18:59 Output Total 450 250 Balance -450 -250 Weight 89.4 kg Output: Urine 450 250 Other: Voiding Method Urinal # Voids 1 - Labs CBC & Chem 7: 05/21/19 07:23 05/21/19 07:23 Labs: Abnormal Lab Results - Last 24 Hours (Table) 05/20/19 05/20/19 05/20/19 Range/Units 11:26 16:53 20:45 RBC (4.30-5.90) m/uL Hgb (13.0-17.5) gm/dL Hct (39.0-53.0) % Lymphocytes # (1.0-4.8) k/uL Carbon Dioxide (22-30) mmol/L BUN (9-20) mg/dL Creatinine (0.66-1.25) mg/dL Glucose (74-99) mg/dL POC Glucose (mg/dL) 210 H 257 H 201 H (75-99) mg/dL 05/21/19 05/21/19 05/21/19 Range/Units 07:14 07:23 07:23 RBC 2.93 L (4.30-5.90) m/uL Hgb 8.9 L (13.0-17.5) gm/dL Hct 27.2 L (39.0-53.0) % Lymphocytes # 0.8 L (1.0-4.8) k/uL Carbon Dioxide 31 H (22-30) mmol/L BUN 44 H (9-20) mg/dL Creatinine 1.87 H (0.66-1.25) mg/dL Glucose 229 H (74-99) mg/dL POC Glucose (mg/dL) 301 H (75-99) mg/dL Assessment and Plan Plan: Assessment: 1. Acute kidney injury mostly prerenal secondary to cardiorenal syndrome. Creatinine 2.68 on admission and is 1.87 today. Creatinine February 2019 was as low as 0.94. No hydronephrosis noted on kidney ultrasound. 2. Left foot ulcer being followed by vascular surgery. 3. Recent left foot osteomyelitis status post antibiotics. 4. Diabetes mellitus. 5. Volume overload. Improving with diuresis. 6. Hypokalemia secondary to diuresis. Better. 7. Hypomagnesemia secondary to diuresis. 8. Acute on chronic systolic CHF with ejection fraction of 20-25%. 9. Rule out chronic kidney disease. Patient does have proteinuria on UA which will need further workup outpatient. 10. Right kidney nodule. Will need to be monitored outpatient. Plan: Maintain Lasix 40 mg orally twice daily. Increase maintenance potassium supplementation to 10 mEq twice daily. Add oral magnesium oxide. Avoid nephrotoxins. Continue to monitor renal function and urine output.
[2019-05-21] MEDS ORDERED: POTASSIUM CHLORIDE ER 10 MEQ TAB.ER.PRT PO SCH (09:00)
[2019-05-21] MEDS ORDERED: MAGNESIUM OXIDE 400 MG TAB PO SCH (09:00)
[2019-05-21] MEDS: CHOLECALCIFEROL 1,000 UNIT TAB PO SCH (09:43)
[2019-05-21] MEDS: FUROSEMIDE 40 MG TAB PO SCH ×2 (09:44→15:08)
[2019-05-21] MEDS: ISOSORBIDE MONONITRATE ER 30 MG TAB.ER.24H PO SCH (09:44)
[2019-05-21] MEDS: METOPROLOL TARTRATE 12.5 MG TAB PO SCH (09:44)
[2019-05-21] MEDS: SERTRALINE 50 MG TAB PO SCH (09:45)
[2019-05-21] MEDS: ASPIRIN 81 MG PO SCH (09:45)
[2019-05-21 11:46] LABS: Glucose,Whole Blood 219 mg/dL (75-99)
[2019-05-21 12:24] VITALS: BP 109/71; PULSE 68; RESP 17; TEMP 97.3
[2019-05-21] MEDS: COLLAGENASE 250 UNIT/GM OINTMENT 30 GM TUBE TOPICAL SCH (12:44)
[2019-05-21] MEDS ORDERED: Magnesium Replacement Protocol 1 EACH MISC MISCELLANE PRN (14:43)
[2019-05-21] MEDS ORDERED: MAGNESIUM SULFATE-D5W PMX 1 GM in DEXTROSE/WATER 1 100ML.BAG IVPB SCH (15:00)
--- NOTE | 2019-05-21 22:15 | P.DS ---
Providers Date of admission: 05/18/19 06:17 Expected date of discharge: 05/21/19 Attending physician: Maico Segundo Consults: 05/18/19 07:39 Consult Physician Routine Consulting Provider: Bryan Boyle Consult Reason/Comments: elevated troponin Do you want consulting provider notified?: Yes 05/19/19 08:42 Consult Physician Routine Consulting Provider: Stefania Lombardi Consult Reason/Comments: acute on chronic renal Do you want consulting provider notified?: Yes [facility] Course: Chief Complaint: short of breath Hospital course: This is a pleasant 73-year-old patient follows a Dr. Brown. Chronic stable medical conditions include , diabetes, hyperlipidemia, hypertension, peripheral neuropathy, COPD, coronary artery disease with prior stent. Left heel acute osteomyelitis and just completed a course of antibiotics 2 days ago. Chronic right foot ulceration. Has a wound VAC on the left foot. Patient was recently discharged from the [facility] to home. Admitted with acute CHF exacerbation . Responded well to diuretics. Today-. Stable. Stable. Wound VAC is being arranged for home. He is going to his sons place. Care was discussed with him. Consultations: Dr. Resendiz from nephrology Dr. WAI Lin from cardiology Dr. Rosen from vascular surgery Review of systems: Was done for constitutional, cardiovascular, GI, pulmonary. relevant finding as above Physical examination: VITAL SIGNS: 97, 69, 15, 125/62, 99% room air GENERAL: Sitting up in a chair, comfortable EYES: Pupils equal. Conjunctiva normal. HEENT: External appearance of nose and ears normal, oral cavity grossly normal. NECK: JVD not raised; masses not palpable. HEART: First and second heart sounds are normal; decreased edema. LUNGS: Respiratory rate normal; decreased breath sounds. ABDOMEN: Soft, nontender, liver spleen not palpable, no masses palpable. PSYCH: Alert and oriented x3; mood and affect normal. 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, on a wound VAC, on the left heel -Diabetes mellitus type 2 -hyperlipidemia -Essential hypertension -Peripheral neuropathy -COPD in a current smoker -coronary artery disease with stents -Acute kidney injury, prerenal, likely from cardiorenal syndrome -Splenomegaly Disposition: Home Patient Condition at Discharge: Stable Plan - Discharge Summary Discharge Rx Participant: No New Discharge Prescriptions: Continue Aspirin [Adult Low Dose Aspirin EC] 81 mg PO DAILY Atorvastatin [Lipitor] 80 mg PO HS Sertraline [Zoloft] 50 mg PO DAILY Nitroglycerin Sl Tabs [Nitrostat] 0.4 mg SL Q5M PRN PRN Reason: Chest Pain Mirtazapine [Remeron] 15 mg PO HS #3 tablet Furosemide [Lasix] 40 mg PO DAILY Metoprolol Tartrate [Lopressor] 12.5 mg PO BID Cholecalciferol [Vitamin D3 (25 Mcg = 1000 Iu)] 5,000 unit PO DAILY Promethazine [Phenergan] 12.5 mg PO Q6H PRN PRN Reason: Nausea And Vomiting Collagenase [Santyl] 1 applic TOPICAL DAILY oxyCODONE-APAP 5-325MG [Percocet 5-325 mg] 1 tab PO Q4H PRN PRN Reason: Pain Potassium Chloride ER [K-Dur 10] 10 meq PO DAILY Loperamide [Imodium] 2 mg PO QID PRN PRN Reason: Loose Stool Isosorbide Mononitrate [Isosorbide Mononitrate ER] 30 mg PO DAILY Acetaminophen Tab [Tylenol] 650 mg PO Q6H PRN PRN Reason: Pain Discharge Medication List Aspirin [Adult Low Dose Aspirin EC] 81 mg PO DAILY 04/10/16 [History] Atorvastatin [Lipitor] 80 mg PO HS 08/06/16 [History] Nitroglycerin Sl Tabs [Nitrostat] 0.4 mg SL Q5M PRN 11/02/18 [History] Sertraline [Zoloft] 50 mg PO DAILY 11/02/18 [History] Mirtazapine [Remeron] 15 mg PO HS #3 tablet 01/25/19 [Rx] Acetaminophen Tab [Tylenol] 650 mg PO Q6H PRN 05/18/19 [History] Cholecalciferol [Vitamin D3 (25 Mcg = 1000 Iu)] 5,000 unit PO DAILY 05/18/19 [History] Collagenase [Santyl] 1 applic TOPICAL DAILY 05/18/19 [History] Furosemide [Lasix] 40 mg PO DAILY 05/18/19 [History] Isosorbide Mononitrate [Isosorbide Mononitrate ER] 30 mg PO DAILY 05/18/19 [History] Loperamide [Imodium] 2 mg PO QID PRN 05/18/19 [History] Metoprolol Tartrate [Lopressor] 12.5 mg PO BID 05/18/19 [History] Potassium Chloride ER [K-Dur 10] 10 meq PO DAILY 05/18/19 [History] Promethazine [Phenergan] 12.5 mg PO Q6H PRN 05/18/19 [History] oxyCODONE-APAP 5-325MG [Percocet 5-325 mg] 1 tab PO Q4H PRN 05/18/19 [History] Follow up Appointment(s)/Referral(s): Grey Brown DO [Primary Care Provider] - 06/22/19 9:00 am Bryan Boyle MD [STAFF PHYSICIAN] - 06/08/19 2:00 pm [facility] [NON-STAFF] - 1 Week [facility], [NON-STAFF] - 1 Week Ibrahima Resendiz DO [STAFF PHYSICIAN] - 10 Days (office will call patient with appt.) Activity/Diet/Wound Care/Special Instructions: bmp - 5 days pt will be sent home with a wheel chair s/t weakness, foot ulcer, difficulty with ambulation and wound vac to facilitate completion of ADL's Discharge Disposition: HOME WITH HOME HEALTH SERVICES
== END 2019-05-21 17:30 | disposition home health service (06) | DRG 291 ==
LOC: EC 04:02 → 3NMEDONC 06:17
PROVIDERS: ADMIT Hospitalist; ATTEND Hospitalist
DX: I13.0 Hypertensive heart and chronic kidney disease with heart failure and stage 1 through stage 4 chronic kidney disease, or unspecified chronic kidney disease (principal); I50.23 Acute on chronic systolic (congestive) heart failure; N18.4 Chronic kidney disease, stage 4 (severe); L97.419 Non-pressure chronic ulcer of right heel and midfoot with unspecified severity; L97.429 Non-pressure chronic ulcer of left heel and midfoot with unspecified severity; N17.9 Acute kidney failure, unspecified; D64.9 Anemia, unspecified; D72.829 Elevated white blood cell count, unspecified; E11.22 Type 2 diabetes mellitus with diabetic chronic kidney disease; E11.42 Type 2 diabetes mellitus with diabetic polyneuropathy; E11.51 Type 2 diabetes mellitus with diabetic peripheral angiopathy without gangrene; E11.69 Type 2 diabetes mellitus with other specified complication; E78.5 Hyperlipidemia, unspecified; E83.42 Hypomagnesemia; E86.0 Dehydration; E87.6 Hypokalemia; F17.200 Nicotine dependence, unspecified, uncomplicated; I25.10 Atherosclerotic heart disease of native coronary artery without angina pectoris; I25.2 Old myocardial infarction; I25.5 Ischemic cardiomyopathy; I35.8 Other nonrheumatic aortic valve disorders; I44.0 Atrioventricular block, first degree; I45.10 Unspecified right bundle-branch block; J44.9 Chronic obstructive pulmonary disease, unspecified; M06.9 Rheumatoid arthritis, unspecified; T50.2X5A Adverse effect of carbonic-anhydrase inhibitors, benzothiadiazides and other diuretics, initial encounter; Z79.4 Long term (current) use of insulin; Z79.82 Long term (current) use of aspirin; Z79.899 Other long term (current) drug therapy; Z82.49 Family history of ischemic heart disease and other diseases of the circulatory system; Z86.14 Personal history of Methicillin resistant Staphylococcus aureus infection; Z95.5 Presence of coronary angioplasty implant and graft; Z95.810 Presence of automatic (implantable) cardiac defibrillator
CPT/HCPCS: 36415; 71045; 76770; 80048; 80053; 81001; 83605; 83735; 83880; 84443; 84484; 85025; 85610; 85730; 93005; 94760; 96365; 99285

== ENCOUNTER 2019-09-01 15:19 | Inpatient (IN) | payer MEDICARE, OTHER ==
[~2019-09-01 15:19] MED LIST: CEFEPIME 2 GM in SODIUM CHLORIDE 0.9% 100 ML IVPB ONE
[2019-09-01] MEDS ORDERED: SODIUM CHLORIDE 0.9% 500 ML 500 ML IV STA (15:35)
[2019-09-01] MEDS ORDERED: VANCOMYCIN IV PER PHARMACY 1 EACH MISC MISCELLANE PRN (15:37)
[2019-09-01] MEDS ORDERED: CEFEPIME 2 GM in SODIUM CHLORIDE 0.9% 100 ML IVPB STA (15:39)
[2019-09-01] MEDS ORDERED: SODIUM CHLORIDE 0.9% 250 ML IV ONE (15:56)
[2019-09-01] MEDS ORDERED: SODIUM CHLORIDE 0.9% 250 ML IV SCH (16:00)
[2019-09-01] MEDS ORDERED: LIDOCAINE URO-JET JELLY 2% 5 ML KIT URETHRAL ONE (16:05)
--- NOTE | 2019-09-01 16:10 | ED ---
Pediatric SOB HPI - General Chief Complaint: Shortness of Breath Stated Complaint: SOB Time Seen by Provider: 09/01/19 15:26 Source: patient, EMS, RN notes reviewed, old records reviewed Mode of arrival: EMS Limitations: no limitations - History of Present Illness Initial Comments: 74-year-old male multiple medical problems presenting for evaluation of low blood pressure, dyspnea. [facility] a recent reported angiography of the lower extremities. This was performed at an outside hospital. Patient is uncertain exactly which hospital this was performed at. He had a left femoral access. He is denying abdominal pain. He is reported mild dyspnea. He is somewhat slow to respond to questions but able to answer appropriately. He has history of chronic kidney disease, congestive heart failure. He has osteomyelitis of the left foot that has been on IV antibiotics. He has a right upper extremity PICC line in place. No reported fever. No reported vomiting or diarrhea. - Related Data Home Medications Medication Instructions Recorded Confirmed Aspirin [Adult Low Dose Aspirin EC] 81 mg PO DAILY 04/10/16 05/18/19 Atorvastatin [Lipitor] 80 mg PO HS 08/06/16 05/18/19 Nitroglycerin Sl Tabs [Nitrostat] 0.4 mg SL Q5M PRN 11/02/18 05/18/19 Sertraline [Zoloft] 50 mg PO DAILY 11/02/18 05/18/19 Acetaminophen Tab [Tylenol] 650 mg PO Q6H PRN 05/18/19 05/18/19 Cholecalciferol [Vitamin D3 (25 5,000 unit PO DAILY 05/18/19 05/18/19 Mcg = 1000 Iu)] Collagenase [Santyl] 1 applic TOPICAL DAILY 05/18/19 05/18/19 Furosemide [Lasix] 40 mg PO DAILY 05/18/19 05/18/19 Isosorbide Mononitrate [Isosorbide 30 mg PO DAILY 05/18/19 05/18/19 Mononitrate ER] Loperamide [Imodium] 2 mg PO QID PRN 05/18/19 05/18/19 Metoprolol Tartrate [Lopressor] 12.5 mg PO BID 05/18/19 05/18/19 Potassium Chloride ER [K-Dur 10] 10 meq PO DAILY 05/18/19 05/18/19 Promethazine [Phenergan] 12.5 mg PO Q6H PRN 05/18/19 05/18/19 oxyCODONE-APAP 5-325MG [Percocet 1 tab PO Q4H PRN 05/18/19 05/18/19 5-325 mg] Previous Rx's Medication Instructions Recorded Mirtazapine [Remeron] 15 mg PO HS #3 tablet 01/25/19 Allergies Allergy/AdvReac Type Severity Reaction Status Date / Time Penicillins Allergy Rash/Hives Verified 05/18/19 10:35 gabapentin [From Neurontin] AdvReac Nausea Verified 05/18/19 10:35 Review of Systems ROS Statement: Those systems with pertinent positive or pertinent negative responses have been documented in the HPI. ROS Other: All systems not noted in ROS Statement are negative. Past Medical History Past Medical History: Heart Failure, COPD, Diabetes Mellitus, Hyperlipidemia, Hypertension, Myocardial Infarction ([place]), Rheumatoid Arthritis (RA) Additional Past Medical History / Comment(s): L heel osteomylitis-pt states supposed to get wound vac, current R leg sore, pt concerned might have sore on coccyx currenly, NIDDM type II, neuropathy bilateral hands/legs and feet, past anemia. Last Myocardial Infarction Date:: 2010 History of Any Multi-Drug Resistant Organisms: MRSA, VRE Date of last positivie culture/infection: 12/08/15 MDRO Source:: RIGHT FOOT MRSA AND VRE Past Surgical History: AICD, Appendectomy, Cholecystectomy, Heart Catheterization With Stent, Hernia Repair, Tonsillectomy Additional Past Surgical History / Comment(s): cervical fusion/laminactomy , left carpal tunnel release, cataract left eye, HEART STENT X2, 10-16-15 PTBA /RT LEG STENT, rt hand x2 surgery d/t infection, umb hernia, past picc line, AICD [address] Bhatia Past Anesthesia/Blood Transfusion Reactions: Postoperative Nausea & Vomiting (PONV) Additional Past Anesthesia/Blood Transfusion Reaction / Comment(s): .PT STATED AFTER HAND SX HAD DIFFICULTY URINATING AND PAIN MEDS CONSTIPATE HIM. Date of Last Stent Placement:: 12/2013 Type of Cardiac Device: AICD Device Placement Date:: 2014 Past Psychological History: No Psychological Hx Reported Smoking Status: Current every day smoker Past Alcohol Use History: None Reported Past Drug Use History: None Reported - Past Family History Mother Family Medical History: Pneumonia Additional Family Medical History / Comment(s): PT STATED MOM WAS HEALTHY BUT IN OLDER AGE GOT PNE- FROM COMPLICATIONS OF PNE. Father Family Medical History: Coronary Artery Disease (CAD), Osteoarthritis (OA) Additional Family Medical History / Comment(s): ULCERS, HEART PROBLEMS HAD BYPASS,BACK SURGURY General Exam Limitations: no limitations General appearance: lethargic Head exam: Present: atraumatic, normocephalic Eye exam: Present: normal appearance, PERRL ENT exam: Present: normal exam Neck exam: Absent: tenderness, meningismus Respiratory exam: Present: respiratory distress, rales, decreased breath sounds Cardiovascular Exam: Present: normal rhythm, bradycardia GI/Abdominal exam: Present: soft, distended. Absent: tenderness, guarding, rebound Extremities exam: Present: pedal edema, other (He has left heel wound, no surrounding cellulitis, no crepitus) Neurological exam: Present: alert, oriented X3. Absent: motor sensory deficit Skin exam: Present: warm, dry Course Vital Signs 09/01/19 09/01/19 09/01/19 15:23 16:21 17:06 Temperature 93 F L 93.7 F L Pulse Rate 46 L 46 L 48 L Respiratory 16 16 20 Rate Blood Pressure 92/61 84/56 86/53 O2 Sat by Pulse 100 98 100 Oximetry - Reevaluation(s) Reevaluation #1: 09/01/19 1520 EKG: Sinus bradycardia with a first-degree AV block, low voltage incomplete right bundle, rate of 47, SC interval 224, QRS duration 102, QTC 456, no ST segment elevation Reevaluation #2: 09/01/19 17:12 Patient reevaluated on multiple occasions, he is diffusely edematous, with large left pleural effusion encompassing the left hemithorax, he has no heart rate, he is hypotensive and hypothermic. He is given IV hydration however given the degree of third spacing IV fluids are maintained at a low rate, he started on norepinephrine. Medical Decision Making - Medical Decision Making 74-year-old male presenting with hypotension, bradycardia, hypothermia. Patient has decreased air entry on the left, his edematous throughout both upper extremities and both lower extremities. 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 He has normal oxygenation on 2 L nasal cannula. He is bradycardic in the 40s which is sinus. He has a low blood pressure and initial temperature of 33C. He is initiated on antibiotics for concern of sepsis, he has normal white blood cell count, hemoglobin is 8.4 which is stable for this patient. He is mildly hyperkalemic. He has acute renal failure with a creatinine of 4.14 from recent baseline of 1.3 in July. Chest x-ray showing opacification of the left lung consistent with a large pleural effusion. I did initiate IV fluids and IV antibiotics, there is concern for overload so I did not give large volume of fluid resuscitation, started the patient on norepinephrine through his PICC line. Blood cultures were obtained both peripherally and through the PICC line. I discussed case by with the admitting physician and with the legal cashier Dr. Rose. Patient is currently a full code. - Lab Data Result diagrams: 09/01/19 15:20 09/01/19 15:20 Lab Results 09/01/19 09/01/19 09/01/19 Range/Units 15:20 15:20 15:20 WBC 4.9 (3.8-10.6) k/uL RBC 2.79 L (4.30-5.90) m/uL Hgb 8.4 L (13.0-17.5) gm/dL Hct 27.5 L (39.0-53.0) % MCV 98.6 (80.0-100.0) fL MCH 30.3 (25.0-35.0) pg MCHC 30.7 L (31.0-37.0) g/dL RDW 17.3 H (11.5-15.5) % Plt Count 117 L (150-450) k/uL Neutrophils % 77 % Lymphocytes % 8 % Monocytes % 5 % Eosinophils % 8 % Basophils % 1 % Neutrophils # 3.7 (1.3-7.7) k/uL Lymphocytes # 0.4 L (1.0-4.8) k/uL Monocytes # 0.3 (0-1.0) k/uL Eosinophils # 0.4 (0-0.7) k/uL Basophils # 0.0 (0-0.2) k/uL Hypochromasia Marked Anisocytosis Slight Macrocytosis Slight PT (9.0-12.0) sec INR (<1.2) APTT (22.0-30.0) sec Sodium 143 (137-145) mmol/L Potassium 5.7 H (3.5-5.1) mmol/L Chloride 111 H (98-107) mmol/L Carbon Dioxide 22 (22-30) mmol/L Anion Gap 10 mmol/L BUN 78 H (9-20) mg/dL Creatinine 4.14 H (0.66-1.25) mg/dL Est GFR (CKD-EPI)AfAm 15 (>60 ml/min/1.73 sqM) Est GFR (CKD-EPI)NonAf 13 (>60 ml/min/1.73 sqM) Glucose 94 (74-99) mg/dL Plasma Lactic Acid Steve 0.6 L (0.7-2.0) mmol/L Calcium 8.1 L (8.4-10.2) mg/dL Magnesium 2.2 (1.6-2.3) mg/dL Total Bilirubin 0.9 (0.2-1.3) mg/dL AST 61 H (17-59) U/L ALT 37 (4-49) U/L Alkaline Phosphatase 151 H (38-126) U/L Troponin I (0.000-0.034) ng/mL NT-Pro-B Natriuret Pep pg/mL Total Protein 5.8 L (6.3-8.2) g/dL Albumin 2.8 L (3.5-5.0) g/dL TSH 6.450 H (0.465-4.680) mIU/L Urine Color Urine Appearance (Clear) Urine pH (5.0-8.0) Ur Specific [place] (1.001-1.035) Urine Protein (Negative) Urine Glucose (UA) (Negative) Urine Ketones (Negative) Urine Blood (Negative) Urine Nitrite (Negative) Urine Bilirubin (Negative) Urine Urobilinogen (<2.0) mg/dL Ur Leukocyte Esterase (Negative) Urine RBC (0-5) /hpf Urine WBC (0-5) /hpf Urine Bacteria (None) /hpf Hyaline Casts (0-2) /lpf Urine Mucus (None) /hpf 09/01/19 09/01/19 09/01/19 Range/Units 15:20 15:20 15:20 WBC (3.8-10.6) k/uL RBC (4.30-5.90) m/uL Hgb (13.0-17.5) gm/dL Hct (39.0-53.0) % MCV (80.0-100.0) fL MCH (25.0-35.0) pg MCHC (31.0-37.0) g/dL RDW (11.5-15.5) % Plt Count (150-450) k/uL Neutrophils % % Lymphocytes % % Monocytes % % Eosinophils % % Basophils % % Neutrophils # (1.3-7.7) k/uL Lymphocytes # (1.0-4.8) k/uL Monocytes # (0-1.0) k/uL Eosinophils # (0-0.7) k/uL Basophils # (0-0.2) k/uL Hypochromasia Anisocytosis Macrocytosis PT 12.5 H (9.0-12.0) sec INR 1.2 H (<1.2) APTT 29.0 (22.0-30.0) sec Sodium (137-145) mmol/L Potassium (3.5-5.1) mmol/L Chloride (98-107) mmol/L Carbon Dioxide (22-30) mmol/L Anion Gap mmol/L BUN (9-20) mg/dL Creatinine (0.66-1.25) mg/dL Est GFR (CKD-EPI)AfAm (>60 ml/min/1.73 sqM) Est GFR (CKD-EPI)NonAf (>60 ml/min/1.73 sqM) Glucose (74-99) mg/dL Plasma Lactic Acid Steve (0.7-2.0) mmol/L Calcium (8.4-10.2) mg/dL Magnesium (1.6-2.3) mg/dL Total Bilirubin (0.2-1.3) mg/dL AST (17-59) U/L ALT (4-49) U/L Alkaline Phosphatase (38-126) U/L Troponin I <0.012 (0.000-0.034) ng/mL NT-Pro-B Natriuret Pep 87943 pg/mL Total Protein (6.3-8.2) g/dL Albumin (3.5-5.0) g/dL TSH (0.465-4.680) mIU/L Urine Color Urine Appearance (Clear) Urine pH (5.0-8.0) Ur Specific [place] (1.001-1.035) Urine Protein (Negative) Urine Glucose (UA) (Negative) Urine Ketones (Negative) Urine Blood (Negative) Urine Nitrite (Negative) Urine Bilirubin (Negative) Urine Urobilinogen (<2.0) mg/dL Ur Leukocyte Esterase (Negative) Urine RBC (0-5) /hpf Urine WBC (0-5) /hpf Urine Bacteria (None) /hpf Hyaline Casts (0-2) /lpf Urine Mucus (None) /hpf 09/01/19 Range/Units 17:03 WBC (3.8-10.6) k/uL RBC (4.30-5.90) m/uL Hgb (13.0-17.5) gm/dL Hct (39.0-53.0) % MCV (80.0-100.0) fL MCH (25.0-35.0) pg MCHC (31.0-37.0) g/dL RDW (11.5-15.5) % Plt Count (150-450) k/uL Neutrophils % % Lymphocytes % % Monocytes % % Eosinophils % % Basophils % % Neutrophils # (1.3-7.7) k/uL Lymphocytes # (1.0-4.8) k/uL Monocytes # (0-1.0) k/uL Eosinophils # (0-0.7) k/uL Basophils # (0-0.2) k/uL Hypochromasia Anisocytosis Macrocytosis PT (9.0-12.0) sec INR (<1.2) APTT (22.0-30.0) sec Sodium (137-145) mmol/L Potassium (3.5-5.1) mmol/L Chloride (98-107) mmol/L Carbon Dioxide (22-30) mmol/L Anion Gap mmol/L BUN (9-20) mg/dL Creatinine (0.66-1.25) mg/dL Est GFR (CKD-EPI)AfAm (>60 ml/min/1.73 sqM) Est GFR (CKD-EPI)NonAf (>60 ml/min/1.73 sqM) Glucose (74-99) mg/dL Plasma Lactic Acid Steve (0.7-2.0) mmol/L Calcium (8.4-10.2) mg/dL Magnesium (1.6-2.3) mg/dL Total Bilirubin (0.2-1.3) mg/dL AST (17-59) U/L ALT (4-49) U/L Alkaline Phosphatase (38-126) U/L Troponin I (0.000-0.034) ng/mL NT-Pro-B Natriuret Pep pg/mL Total Protein (6.3-8.2) g/dL Albumin (3.5-5.0) g/dL TSH (0.465-4.680) mIU/L Urine Color Yellow Urine Appearance Cloudy (Clear) Urine pH 5.0 (5.0-8.0) Ur Specific [place] 1.023 (1.001-1.035) Urine Protein 1+ H (Negative) Urine Glucose (UA) Negative (Negative) Urine Ketones Negative (Negative) Urine Blood Moderate H (Negative) Urine Nitrite Negative (Negative) Urine Bilirubin Negative (Negative) Urine Urobilinogen <2.0 (<2.0) mg/dL Ur Leukocyte Esterase Small H (Negative) Urine RBC 85 H (0-5) /hpf Urine WBC 30 H (0-5) /hpf Urine Bacteria Occasional H (None) /hpf Hyaline Casts 38 H (0-2) /lpf Urine Mucus Few H (None) /hpf Critical Care Time Critical Care Time: Yes Total Critical Care Time: 35 Disposition Clinical Impression: CAD (coronary artery disease), CHF exacerbation, Bilateral lower extremity edema, Pleural effusion, Sepsis Disposition: ADMITTED IP TO THIS HOSP Condition: Serious Is patient prescribed a controlled substance at d/c from ED?: No Referrals: Grey Brown DO [Primary Care Provider] - 1-2 days Time of Disposition: 17:44
[2019-09-01 16:20] LABS: Anisocytosis Slight; Basophils % (A) 1 %; Eosinophils # (A) 0.4 k/uL (0-0.7); Eosinophils % (A) 8 %; HCT 27.5 % (39.0-53.0); HGB 8.4 gm/dL (13.0-17.5); Hypochromasia Marked; Lymphocytes # (A) 0.4 k/uL (1.0-4.8); Lymphocytes % (A) 8 %; MCH 30.3 pg (25.0-35.0); MCHC 30.7 g/dL (31.0-37.0); MCV 98.6 fL (80.0-100.0); Macrocytosis Slight; Mean Platelet Volume 10.4; Monocytes # (A) 0.3 k/uL (0-1.0); Monocytes % (A) 5 %; Neutrophils # (A) 3.7 k/uL (1.3-7.7); Neutrophils % (A) 77 %; Platelet Count 117 k/uL (150-450); RBC 2.79 m/uL (4.30-5.90); RDW 17.3 % (11.5-15.5); WBC 4.9 k/uL (3.8-10.6)
[2019-09-01] MEDS ORDERED: VANCOMYCIN 2,250 MG in SODIUM CHLORIDE 0.9% 500 ML 500 ML IVPB ONE (16:30)
[2019-09-01 16:32] LABS: Albumin 2.8 g/dL (3.5-5.0); Calcium 8.1 mg/dL (8.4-10.2); Magnesium 2.2 mg/dL (1.6-2.3); Potassium 5.7 mmol/L (3.5-5.1); Total Bilirubin 0.9 mg/dL (0.2-1.3); Total Protein 5.8 g/dL (6.3-8.2)
[2019-09-01 16:35] LABS: INR 1.2 (<1.2); Prothrombin Time 12.5 sec (9.0-12.0)
[2019-09-01] MEDS ORDERED: SODIUM CHLORIDE 0.9% 500 ML 500 ML IV ONE (16:42)
[2019-09-01] MEDS ORDERED: CALCIUM GLUCONATE 1 GM in SODIUM CHLORIDE 0.9% 100 ML IVPB ONE (16:43)
--- NOTE | 2019-09-01 16:49 | XR ---
EXAMINATION TYPE: XR chest 1V portable DATE OF EXAM: 09/01/2019 COMPARISON: Prior chest x-ray 05/18/2019 HISTORY: Sepsis TECHNIQUE: Single frontal view of the chest is obtained. FINDINGS: There is near complete opacification of the left hemithorax. Minimal aerated lung is prese nt. There is a generator in the left pectoral region, intracardiac defibrillator lead is present. Exa m is somewhat limited technically. Heart is obscured. IMPRESSION: Large left pleural effusion, may be associated pneumonia or atelectasis. Suspect underly ing cardiomegaly.
[2019-09-01] MEDS ORDERED: NOREPINEPHRINE 4 MG in SODIUM CHLORIDE 0.9% 250 ML IV ONE (17:08)
[2019-09-01] MEDS ORDERED: HYDROCORTISONE SUCCINATE 100 MG/2 ML VIAL IV STA (17:18)
[2019-09-01] MEDS: SODIUM CHLORIDE 0.9% 1,000 ML IV SCH (17:30)
[2019-09-01 17:31] LABS: Appearance,Urine Cloudy (Clear); Bacteria,Urine Occasional /hpf; Bilirubin,Urine Negative (Negative); Blood,Urine Moderate (Negative); Color,Urine Yellow; Glucose,Urine (UA) Negative (Negative); Hyaline Casts,Urine 38 /lpf (0-2); Ketones,Urine Negative (Negative); Leukocyte Esterase,Urine Small (Negative); Mucus,Urine Few /hpf; Nitrite,Urine Negative (Negative); Protein,Urine 1+ (Negative); RBC,Urine 85 /hpf (0-5); Specific Gravity,Urine 1.023 (1.001-1.035); Urobilinogen,Urine <2.0 mg/dL (<2.0); WBC,Urine 30 /hpf (0-5)
[2019-09-01 17:40] LABS: T4, Free (Free Thyroxine) 1.07 ng/dL (0.78-2.19)
[2019-09-01] MEDS ORDERED: NALOXONE 0.4 MG/ML 1 ML VIAL IV PRN (17:46)
[2019-09-01 18:34] LABS: Glucose,Whole Blood 91 mg/dL (75-99)
[2019-09-01] MEDS: BUDESONIDE 1 MG/2 ML NEBU INHALATION SCH (20:05)
[2019-09-01] MEDS: FORMOTEROL FUMARATE 20 MCG/2 ML NEBU INHALATION SCH (20:05)
--- NOTE | 2019-09-01 20:05 | HP ---
HISTORY AND PHYSICAL DATE OF SERVICE: 09/01/2019. CHIEF COMPLAINT: Shortness of breath. HISTORY OF PRESENT ILLNESS: This 74-year-old gentleman with past medical history of multiple medical problems with CHF with chronic systolic ejection fraction 20-25%, history of calcaneal osteomyelitis, history of diabetes type 2, hypertension, hyperlipidemia, being followed by Dr. Brown apparently in the [facility] at this time. The patient recently had a procedure with angiography of the lower extremities and the patient was found to be more obtunded. The patient apparently had left femoral access during that time. The patient also had some mild shortness of breath initially but subsequently shortness of breath was increased and the patient was taken to [facility] and admitted for further evaluation treatment. Chest x-ray done in the ER showed significant opacification on the left side with large left pleural effusion with possible pneumonia and atelectasis. Patient admitted to the hospital for further evaluation and treatment. Currently, the patient also has hypotension and bradycardia. Currently the patient is obtunded most of the history is taken from my discussion with staff and also review of the chart at this time. The patient unable to give an accurate history. Only sketchy history is being provided. There is no history of trauma. PAST MEDICAL HISTORY: History of CHF, ejection fraction 20 to 25%, COPD, diabetes, hypertension, history of myocardial infarction, history of rheumatoid arthritis, history of left heel osteomyelitis, peripheral vascular disease, AICD, recent angiogram. MEDICATIONS: Home medications are reviewed, which include: 1. Oxycodone 5 mg q.4 p.r.n. 2. Zoloft 50 mg daily. 3. Phenergan 12.5 mg q.6h p.r.n. 4. K-Dur 10 mEq p.o. daily. 5. Nitrostat 0.4 sublingual p.r.n. 6. Remeron 15 mg q.h.s. 7. Lopressor 12.5 mg b.i.d. 8. Imodium 2 mg q.i.d. p.r.n. 9. Imdur ER 30 mg p.o. daily. 10.Lasix 40 mg p.o. daily. 11.Santyl 1 application daily. 12.Vitamin D3 5000 units. 13.Lipitor 80 mg q.h.s. 14.Ecotrin 81 mg daily. 15.Tylenol 650 mg q.6h p.r.n. ALLERGIES: PENICILLIN AND GABAPENTIN. FAMILY HISTORY: Family history, Social history and Review of systems could not be taken, the patient is stuporous. Family history of CAD, ulcers per chart. PHYSICAL EXAM: Pulse is 50, blood pressure is 86/50, respiration 20, temperature 98.7, pulse ox 100 percent on 2 L. HEENT: Conjunctivae normal. Oral mucosa moist. NECK is no jugular venous distention. No carotid bruit. No lymph node enlargement. Facial puffiness present. CARDIOVASCULAR: S1, S2 muffled. No S3, no S4. RESPIRATORY: Breath sounds diminished in the bases. Bilateral scattered rhonchi. Breath sounds are markedly diminished on the left side. Expiratory wheezing also present. ABDOMEN: Soft, obese, nontender. No mass palpable. LEGS: Bilateral leg edema present. Pulses diminished bilaterally NERVOUS SYSTEM: Higher functions as mentioned earlier, diffusely weak. Unable to cooperate with full exam. SKIN: No ulcer, rashes or bleeding. JOINTS: No active deforming arthropathy. LYMPHATICS: No lymph nodes palpable in the neck, axillae or groin. CURRENT LABS: At this time shows WBC is 4.2, hemoglobin is 8.4, sodium 143, creatinine 4.14 and TSH is 6.450. The baseline creatinine is around 1.76. ASSESSMENT: 1. Acute left-sided pneumonia with pleural effusion and atelectasis collapse with possible sepsis, present on admission. 2. Chronic obstructive pulmonary disease, acute exacerbation. 3. Change in mental status, acute metabolic encephalopathy, multifactorial. 4. Hypotension with severe sepsis and septic shock. 5. Increased creatinine with possibly acute renal failure. 6. History of recent angiography. 7. Renal failure possible acute tubular necrosis possibly contrast induced nephropathy. 8. Hyperkalemia. 9. Hypoalbuminemia with mild to moderate protein calorie malnutrition. 10.Anemia, normocytic anemia of chronic disease. 11.Thrombocytopenia. 12.History of congestive heart failure with chronic systolic dysfunction, ejection fraction 20 to 25 percent with possibly cardiomyopathy. 13.History of chronic obstructive pulmonary disease. 14.Diabetes mellitus type 2. 15.Hypertension. 16.Hyperlipidemia. 17.Myocardial infarction. 18.History of rheumatoid arthritis. 19.Left heel osteomyelitis. 20.History of peripheral neuropathy. 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 22.History AICD. 23.History of coronary artery disease/stent. 24.History of cervical fusion, laminectomy, degenerative joint disease. 25.History of postoperative nausea, vomiting. 26.History AICD. 27.FULL CODE. 28.Obesity with body mass index of 44.6. RECOMMENDATIONS AND DISCUSSION: This 74-year-old gentleman who presented with multiple complex medical issues, we will monitor the patient closely. Continue the current medications, management and symptomatic treatment. I recommend broad-spectrum IV antibiotics. Otherwise, I would also recommend consult Dr. Rose for ICU management. Bronchodilators, IV steroids. Resume the home medications. Vancomycin also has been given. The prognosis guarded because of multiple complex medical issues. Further recommendations to follow. Nephrology also will be consulted. Cardiology also will be consulted. Prognosis guarded because of multiple complex medical issues. Further recommendations to follow. A copy of dictation being forwarded to Dr. Brown who is the primary physician. MMODL / IJN: [id number] /
[2019-09-01] MEDS: IPRATROPIUM-ALBUTEROL 3 ML NEB INHALATION SCH (20:06)
[2019-09-01] MEDS: methylPREDNISolone SOD SUCCI 125 MG/2 ML VIAL IV SCH ×2 (21:00→23:40)
[2019-09-01] MEDS: DAPTOMYCIN IVPB SCH (22:59)
[2019-09-01] MEDS: SODIUM CHLORIDE 0.9% IVPB SCH (22:59)
--- NOTE | 2019-09-01 23:35 | P.CONS ---
History of Present Illness - Reason for Consult Consult date: 09/01/19 Sepsis Requesting physician: Gian Chavira - Chief Complaint Shortness of breath 1 day - History of Present Illness Patient is 74-year-old male with a past medical history significant for chronic nonhealing wound to the left heel area with a previous episode of os teomyelitis for which the patient has been treated with a course of IV antibiotic therapy however the patient not clear what it was and the patient still has a PICC line even though the patient was not getting any antibiotic through it as confirmed with the prison, patient also have a recent a ngiogram to the left leg by [facility] cardiology Dr. Beavers results of that angiogram is currently not available, the patient has been sent to the ER from the prison for evaluation of hypotension and weakness, the patient has been complaining of shortness of breath 1 days. Denies having any chest pain or significant cough no URI symptoms no nausea no vomiting no abdominal pain no diarrhea patient did have a chronic nonhealing wound at the left heel area denies any worsening pain that he did have some foul-smelling drainage patient still have a PICC line in the right arm which has been there for couple of months now and has not been used recently patient himself is unable to provide a reliable history and so I have to call the prison to get some of the information from the nurse taking care of him. Patient on arrival to the hospital was noticed to be hypothermic with a temperat ure of 93F, the patient also noticed to be hypotensive requiring fluid boluses and pressor support currently on 7 mics of Levophed he did have a chest x-ray we did shows a large left-sided pleural effusion with concern for compressive atelectasis versus pneumonia patient also noticed to have worsening of his kidney function though his white count has been normal patient was started on vancomycin and cefepime infection disease was consulted for further recommendation regarding antibiotic therapy Review of Systems Positive points has been mentioned in HPI complete review could not be obtained because of his underlying mental status Past Medical History Past Medical History: Heart Failure, COPD, Diabetes Mellitus, Hyperlipidemia, Hypertension, Myocardial Infarction ([place]), Rheumatoid Arthritis ([place]) Additional Past Medical History / Comment(s): L heel osteomylitis-pt states supposed to get wound vac, current R leg sore, pt concerned might have sore on coccyx currenly, NIDDM type II, neuropathy bilateral hands/legs and feet, past anemia. Last Myocardial Infarction Date:: 2010 History of Any Multi-Drug Resistant Organisms: MRSA, VRE Year Discovered:: 12/08/15 MDRO Source:: RIGHT FOOT MRSA AND VRE Past Surgical History: AICD, Appendectomy, Cholecystectomy, Heart Cathete rization With Stent, Hernia Repair, Tonsillectomy Additional Past Surgical History / Comment(s): cervical fusion/laminactomy , left carpal tunnel release, cataract left eye, HEART STENT X2, 10-16-15 PTBA /RT LEG STENT, rt hand x2 surgery d/t infection, umb hernia, past picc line, AICD [address] Bhatia Past Anesthesia/Blood Transfusion Reactions: Postoperative Nausea & Vomiting (PONV) Additional Past Anesthesia/Blood Transfusion Reaction / Comm: .PT STATED AFTER HAND SX HAD DIFFICULTY URINATING AND PAIN MEDS CONSTIPATE HIM. Date of Last Stent Placement:: 12/2013 Type of Cardiac Device: AICD Device Placement Date:: 2014 Past Psychological History: No Psychological Hx Reported Smoking Status: Current every day smoker Past Alcohol Use History: None Reported Past Drug Use History: None Reported - Past Family History Mother Family Medical History: Pneumonia Additional Family Medical History / Comment(s): PT STATED MOM WAS HEALTHY BUT IN OLDER AGE GOT PNE- FROM COMPLICATIONS OF PNE. Father Family Medical History: Coronary Artery Disease (CAD), Osteoarthritis (OA) Additional Family Medical History / Comment(s): ULCERS, HEART PROBLEMS HAD BYPASS,BACK SURGURY Medications and Allergies Home Medications Medication Instructions Recorded Confirmed Type Aspirin [Adult Low Dose Aspirin EC] 81 mg PO DAILY@0700 04/10/16 09/01/19 History Atorvastatin [Lipitor] 80 mg PO HS@199908/06/16 09/01/19 History Sertraline [Zoloft] 50 mg PO DAILY@1600 11/02/18 09/01/19 History Acetaminophen Tab [Tylenol] 650 mg PO Q6H PRN 05/18/19 09/01/19 History Cholecalciferol [Vitamin D3 (25 1,000 unit PO DAILY@1600 05/18/19 09/01/19 History Mcg = 1000 Iu)] Isosorbide Mononitrate [Isosorbide 30 mg PO DAILY@0700 05/18/19 09/01/19 History Mononitrate ER] Metoprolol Tartrate [Lopressor] 25 mg PO DAILY@0600 05/18/19 09/01/19 History Betamethasone Dipropionate 1 applic TOPICAL BID 09/01/19 09/01/19 History [Diprolene AF 0.05% Cream] Clopidogrel [Plavix] 75 mg PO DAILY@0700 09/01/19 09/01/19 History Fluticasone Nasal [place] [Flonase 1 spray EA NOSTRIL BID 09/01/19 09/01/19 History Nasal [place]] Furosemide [Lasix] 20 mg PO DAILY@1400 09/01/19 09/01/19 History Furosemide [Lasix] 40 mg PO DAILY@0709/01/19 09/01/19 History HYDROcodone/APAP 5-325MG [Limon 1 tab PO Q4HR PRN 09/01/19 09/01/19 History 5-325] Lactobacillus 1 cap PO DAILY@0709/01/19 09/01/19 History Lisinopril [Zestril] 2.5 mg PO DAILY@0609/01/19 09/01/19 History Mirtazapine [Remeron] 15 mg PO HS@199909/01/19 09/01/19 History Triamcinolone 0.1% Cream [Kenalog 1 applicatio TOPICAL DIRECTED 09/01/19 09/01/19 History 0.1% Cream] diphenhydrAMINE HCL [Benadryl] 25 mg PO Q12H PRN 09/01/19 09/01/19 History metFORMIN HCL [Glucophage] 500 mg PO DIRECTED 09/01/19 09/01/19 History Allergies Allergy/AdvReac Type Severity Reaction Status Date / Time Penicillins Allergy Rash/Hives Verified 09/01/19 19:00 gabapentin [From Neurontin] AdvReac Nausea Verified 09/01/19 19:00 Physical Exam Vitals: Vital Signs Temp Pulse Resp BP Pulse Ox 09/01/19 18:11 94.7 F L 52 L 20 107/59 97 09/01/19 18:05 94.6 F L 09/01/19 18:03 51 L 20 107/59 100 09/01/19 17:48 94.2 F L 50 L 20 103/53 99 09/01/19 17:06 93.7 F L 48 L 20 86/53 100 09/01/19 16:21 46 L 16 84/56 98 09/01/19 15:23 93 F L 46 L 16 92/61 100 Intake and Output 09/01/19 09/01/19 09/01/19 06:59 14:59 22:59 Intake Total 1250 Balance 1250 Intake: Amount of Fluid Infused ( 1250 ml) Other: Weight 145.15 kg GENERAL DESCRIPTION: Elderly male lying in bed, no distress. No tachypnea or accessory muscle of respiration use. HEENT: Shows Pallor , no scleral icterus. Oral mucous membrane is dry. No pharyngeal erythema or thrush NECK: Trachea central, no thyromegaly. LUNGS: Unlabored breathing. Decreased breath sound at the base. No wheeze or crackle. HEART: S1, S2, regular rate and rhythm. No loud murmur ABDOMEN: Soft, no tenderness , guarding or rigidity, no organomegaly EXTREMITIES: Left heel pressure ulcer with some slough tissue some surrounding swelling and foul-smelling SKIN: No rash, no masses palpable. NEUROLOGICAL: The patient is awake, alert, oriented x3, mood and affect normal. Results CBC & Chem 7: 09/01/19 15:20 09/01/19 15: Labs: Abnormal Lab Results - Last 24 Hours (Table) 09/01/19 09/01/19 09/01/19 Range/Units 15:20 15: 15:20 RBC 2.79 L (4.30-5.90) m/uL Hgb 8.4 L (13.0-17.5) gm/dL Hct 27.5 L (39.0-53.0) % MCHC 30.7 L (31.0-37.0) g/dL RDW 17.3 H (11.5-15.5) % Plt Count 117 L (150-450) k/uL Lymphocytes # 0.4 L (1.0-4.8) k/uL PT (9.0-12.0) sec INR (<1.2) Potassium 5.7 H (3.5-5.1) mmol/L Chloride 111 H (98-107) mmol/L BUN 78 H (9-20) mg/dL Creatinine 4.14 H (0.66-1.25) mg/dL Plasma Lactic Acid Steve 0.6 L (0.7-2.0) mmol/L Calcium 8.1 L (8.4-10.2) mg/dL AST 61 H (17-59) U/L Alkaline Phosphatase 151 H (38-126) U/L Total Protein 5.8 L (6.3-8.2) g/dL Albumin 2.8 L (3.5-5.0) g/dL TSH 6.450 H (0.465-4.680) mIU/L Urine Protein (Negative) Urine Blood (Negative) Ur Leukocyte Esterase (Negative) Urine RBC (0-5) /hpf Urine WBC (0-5) /hpf Urine Bacteria (None) /hpf Hyaline Casts (0-2) /lpf Urine Mucus (None) /hpf 09/01/19 09/01/19 Range/Units 15:20 17:03 RBC (4.30-5.90) m/uL Hgb (13.0-17.5) gm/dL Hct (39.0-53.0) % MCHC (31.0-37.0) g/dL RDW (11.5-15.5) % Plt Count (150-450) k/uL Lymphocytes # (1.0-4.8) k/uL PT 12.5 H (9.0-12.0) sec INR 1.2 H (<1.2) Potassium (3.5-5.1) mmol/L Chloride (98-107) mmol/L BUN (9-20) mg/dL Creatinine (0.66-1.25) mg/dL Plasma Lactic Acid Steve (0.7-2.0) mmol/L Calcium (8.4-10.2) mg/dL AST (17-59) U/L Alkaline Phosphatase (38-126) U/L Total Protein (6.3-8.2) g/dL Albumin (3.5-5.0) g/dL TSH (0.465-4.680) mIU/L Urine Protein 1+ H (Negative) Urine Blood Moderate H (Negative) Ur Leukocyte Esterase Small H (Negative) Urine RBC 85 H (0-5) /hpf Urine WBC 30 H (0-5) /hpf Urine Bacteria Occasional H (None) /hpf Hyaline Casts 38 H (0-2) /lpf Urine Mucus Few H (None) /hpf Assessment and Plan Assessment: 1-patient admitted to hospital with sepsis in this patient who did have hypotension, hypothermia source likely infected left heel pressure ulcer however the patient also have a PICC line which has been there for a few months now and was not receiving any antibiotic therapy underlying PICC line infection need to be ruled out as well clinic suspicion low for underlying pneumonia 2-patient with renal insufficiency and high risk of nephrotoxicity 3-patient with penicillin ALLERGIES limiting the number of antibiotics safe to use (1) Pressure ulcer, heel, left, unstageable Current Visit: Yes Status: Acute Code(s): L89.620 - PRESSURE ULCER OF LEFT HEEL, UNSTAGEABLE SNOMED Code(s): 052630035 (2) Sepsis Current Visit: Yes Status: Acute Code(s): A41.9 - SEPSIS, UNSPECIFIED ORGANI SM SNOMED Code(s): 66803340 Plan: 1- blood cultures from the PICC line and peripherally 2- obtain consult with vascular surgery or surgical debridement of the left heel and deep culture 3-discontinue the vancomycin to decrease his risk of nephrotoxicity 4- daptomycin 6 mg per KG every 48 hour 5- cefepime 1 g daily dosages adjusted to the kidney function 6-local wound care to the left heel wound with the brianda honey and keep the area off the pressure We will follow on clinical condition and cultures to further adjust medication if needed Thank you for this consultation will follow this patient with you Time with Patient: Greater than 30
[2019-09-01] MEDS: HYDROcodone/APAP 5-325MG 1 EACH TAB PO PRN (23:39)
[2019-09-02] MEDS ORDERED: CEFEPIME 2 GM in SODIUM CHLORIDE 0.9% 100 ML IVPB SCH ×2
[2019-09-02] MEDS ORDERED: FUROSEMIDE 10 MG/ML 10 ML VIAL IV STA ×2 (02:41→15:04)
[2019-09-02] MEDS: IPRATROPIUM-ALBUTEROL 3 ML NEB INHALATION SCH ×4 (03:17→19:45)
[2019-09-02] MEDS: NOREPINEPHRINE 8 MG in SODIUM CHLORIDE 0.9% 250 ML IV SCH ×2 (04:29→20:21)
[2019-09-02 05:13] LABS: Anisocytosis Slight; Basophils % (A) 0 %; Eosinophils % (A) 1 %; HCT 26.7 % (39.0-53.0); HGB 8.2 gm/dL (13.0-17.5); Hypochromasia Marked; Lymphocytes # (A) 0.2 k/uL (1.0-4.8); Lymphocytes % (A) 3 %; MCH 30.5 pg (25.0-35.0); MCHC 30.8 g/dL (31.0-37.0); MCV 98.8 fL (80.0-100.0); Macrocytosis Slight; Mean Platelet Volume 10.2; Monocytes # (A) 0.1 k/uL (0-1.0); Monocytes % (A) 1 %; Neutrophils # (A) 5.5 k/uL (1.3-7.7); Neutrophils % (A) 95 %; Platelet Count 141 k/uL (150-450); RDW 17.1 % (11.5-15.5); WBC 5.7 k/uL (3.8-10.6)
[2019-09-02 05:23] LABS: Albumin 2.8 g/dL (3.5-5.0); Calcium 8.2 mg/dL (8.4-10.2); Potassium 5.9 mmol/L (3.5-5.1); Total Protein 5.9 g/dL (6.3-8.2)
[2019-09-02] MEDS ORDERED: DEXTROSE 10 % IN WATER 250 ML IV STA ×2 (06:01→21:37)
[2019-09-02] MEDS ORDERED: INSULIN REGULAR 100 UNIT/ML VIAL IV ONE ×3 (06:04→21:33)
[2019-09-02] MEDS ORDERED: SODIUM BICARB 8.4% 50 ML SYR (1 MEQ/ML) IV STA (06:06)
[2019-09-02] MEDS: methylPREDNISolone SOD SUCCI 125 MG/2 ML VIAL IV SCH (06:25)
[2019-09-02] MEDS: SODIUM CHLORIDE 0.9% 1,000 ML IV SCH (06:30)
[2019-09-02] MEDS: BUDESONIDE 1 MG/2 ML NEBU INHALATION SCH ×2 (07:42→19:47)
[2019-09-02] MEDS: FORMOTEROL FUMARATE 20 MCG/2 ML NEBU INHALATION SCH ×2 (07:42→19:45)
--- NOTE | 2019-09-02 07:45 | XR ---
EXAMINATION TYPE: XR chest 1V DATE OF EXAM: 09/02/2019 COMPARISON: 09/01/2019 HISTORY: Shortness of breath TECHNIQUE: Single frontal view of the chest is obtained. FINDINGS: There is near complete opacification of the left hemithorax. Interstitial pattern on the r ight noted with cardiomegaly and cardiac device. Atherosclerotic change aorta. Right-sided PICC line noted. IMPRESSION: 1. Near complete opacification of the left hemithorax could been the basis of an endobronchial lesion , large pleural effusion or associated pneumonia. Correlate clinically to exclude venous congestion
[2019-09-02] MEDS: PANTOPRAZOLE 40 MG/10 ML VIAL IV SCH (08:05)
[2019-09-02] MEDS ORDERED: SODIUM CHLORIDE 0.9% 1,000 ML IV ONE (09:02)
--- NOTE | 2019-09-02 09:42 | US ---
EXAMINATION TYPE: US chest DATE OF EXAM: 09/02/2019 COMPARISON: CXR CLINICAL HISTORY: Markings for thoracentesis by pulmonary staff. Pleural effusion left TECHNIQUE: Targeted ultrasound of the posterior lower left hemithorax EXAM MEASUREMENTS: Left Pleural Effusion pocket size: 11.2 cm Left skin surface to fluid distance: 4.1 cm Left side marked for possible thoracentesis outside the dept. Pulmonologists are able to review the images in the patient?s EMR. IMPRESSIONS: Left pleural effusion
--- NOTE | 2019-09-02 10:54 | CONS ---
CONSULTATION PULMONARY/CRITICAL CARE CONSULTATION: DATE OF CONSULTATION: September 02, 2019. REASON FOR CONSULTATION: Shortness of breath. This is a 74-year-old gentleman with multiple medical problems including but not limited to diabetes, hypertension, hyperlipidemia, chronic kidney disease, heart failure, status post AICD placement, and probable COPD who is admitted through the emergency department on 01 of September with complaints of low blood pressure and shortness of breath. The patient is apparently a resident at [facility] on the [facility]. The patient complained of progressive shortness of breath. He was also somewhat lethargic and somnolent. His blood pressure was low. His chest x-ray showed a complete opacification of the left hemithorax. He also is being treated for osteomyelitis of the left foot, had a PICC line in place in the right upper extremity. He denied any abdominal pain, nausea, vomiting or diarrhea. Denied any genitourinary complaints. He was admitted to the ICU. Currently, he is on O2 at 2 L by nasal cannula and saline IV at 75 mL an hour and norepinephrine at 6 mcg/minute. I asked the nurse for stat cortisol level. I also asked the nurses to give him a fluid bolus to see if we cannot wean him off the Levophed. Finally, I ask for ultrasound of the left chest and sure enough it showed a large left-sided pleural effusion and later today will do a thoracentesis. Currently, the patient is resting relatively comfortably. MEDICATIONS: His medications at home include aspirin, Lipitor, nitroglycerin tablets, Zoloft, Tylenol, vitamin D3, Santyl, Lasix, Imdur, Imodium, metoprolol, potassium chloride, Phenergan, Percocet, and Remeron. ALLERGIES: Allergies are PENICILLIN and NEURONTIN. MEDICAL HISTORY: Medical history includes CHF, COPD, diabetes, hyperlipidemia, hypertension, myocardial infarction, rheumatoid arthritis, chronic kidney disease, osteomyelitis of the left heel, and anemia. The patient also has diabetic neuropathy. The patient also has a previous history of MRSA infection and vancomycin-resistant enterococci. SURGICAL HISTORY: Surgical history includes AICD placement, appendectomy, cholecystectomy, heart catheterization with stent, hernia repair, tonsillectomy, cervical fusion, laminectomy, left carpal tunnel release, cataract left eye, PTBA of the right leg, right hand surgery, umbilical hernia repair, and some other minor procedures. SOCIAL HISTORY: Positive for ongoing tobacco use. Denies any alcohol or illicit drug use. FAMILY HISTORY: Positive for mother with pneumonia and a father with CAD, osteoarthritis, ulcers, bypass surgery, back surgery, and all sorts of different heart issues. REVIEW OF SYSTEMS: CONSTITUTIONAL: Weakness. NEUROLOGIC: Negative. HEENT: Negative. CARDIOVASCULAR: Negative. PULMONARY: Shortness of breath. GI: Negative. : Negative. RHEUMATOLOGIC: Negative. IMMUNOLOGIC: Negative. ENDOCRINOLOGIC: Negative. DERMATOLOGIC: Negative. PHYSICAL EXAMINATION: VITAL SIGNS: Current vital signs are reviewed. They include a temperature 98.1, heart rate 78, respiratory rate 14, blood pressure 93/54, mean 67 and a saturation of 93% to 95% on 2 L. GENERAL: Appears in no acute distress. Certainly no respiratory distress. HEENT: Examination is grossly unremarkable. Nasal O2 in place. NECK: Supple. Full range of motion. No adenopathy. Neck veins are flat. CARDIOVASCULAR: Examination reveals distant heart sounds. Heart rate mid 70s. S1, S2 normal. No murmur. LUNGS: Reveal diminished breath sounds throughout the left chest. Right lung is relatively clear. No wheezes, rhonchi, or crackles. ABDOMEN: Soft. Bowel sounds are heard. EXTREMITIES: Are intact. Both legs are wrapped because of ulcers and sores. SKIN: Without rash. NEUROLOGIC: Examination is nonfocal. Chest x-ray shows complete opacification of the left chest, large left pleural effusion. The effusion is rather large on chest ultrasound. Microbiology is currently negative. LABS: Labs are reviewed. White count 5.7, hemoglobin 8.2, hematocrit 26.7, platelet count 141,000 sodium 139, potassium 5.9, chloride 110, CO2 of 18. Anion gap 11. BUN and creatinine were 77 and 4.18. Calcium 8.2. Alkaline phosphatase 143. Albumin 2.8. TSH is 6.450. Urine shows 1+ protein, small leukocyte esterase, 85 RBCs, 30 WBCs, occasional bacteria. Influenza A and B were negative. MEDICATIONS: Current medications are reviewed. The patient is on Pulmicort, cefepime, daptomycin, formoterol, Turpin, updrafts with DuoNeb, Solu-Medrol, Turpin, DuoNeb, Narcan, Levophed, Protonix, and IV fluids. ASSESSMENT: 1. Shortness of breath, likely secondary to a large left-sided pleural effusion with anticipated thoracentesis today. 2. Rule out urinary tract infection/urosepsis. 3. History of diabetes mellitus with diabetic neuropathy. 4. History of hypertension. 5. Hyperlipidemia by history. 6. Chronic kidney disease. 7. History of congestive heart failure. 8. Status post AICD placement. 9. Ongoing tobacco use. 10.Probable chronic obstructive pulmonary disease. 11.History of rheumatoid arthritis. 12.Prior history of myocardial infarction. 13.Recent treatment for left heel osteomyelitis. 14.Previous history of MRSA infection and vancomycin-resistant enterococci infection. PLAN: The patient will have a thoracentesis today. We will do a random cortisol. We will give him a fluid bolus and see if we cannot wean Levophed. The patient had an ultrasound of the left chest, which revealed a large left pleural effusion. Again, planned thoracentesis today. Additional recommendations and suggestions are forthcoming. Prognosis is guarded. We will continue to follow. JOSEPH / MAJON: [id number] /
--- NOTE | 2019-09-02 11:56 | XR ---
EXAMINATION TYPE: XR chest 1V portable DATE OF EXAM: 09/02/2019 COMPARISON: 09/02/2019 HISTORY: Postthoracentesis TECHNIQUE: Single frontal view of the chest is obtained. FINDINGS: There is improved aeration in the left lung with persistent consolidation and pleural effu ariela. Small right pleural effusion. Cardiac device noted and PICC line. Surgical change overlying the cervical spine. Diffuse interstitial pattern. No pneumothorax. Arthropathy of the shoulders and diff use osteopenia. Underlying COPD suspected. IMPRESSION: 1. Improved aeration postthoracentesis with no sizable pneumonia are intact. 2. Bilateral consolidation and pleural effusion correlate for CHF. Otherwise consider pneumonia.
--- NOTE | 2019-09-02 11:58 | US ---
EXAMINATION TYPE: US renals and bladder DATE OF EXAM: 09/02/2019 COMPARISON: US CLINICAL HISTORY: elevated creatinine/oliguria. EXAM MEASUREMENTS: Right Kidney: 11.3 x 5.3 x 5.7 cm Left Kidney: 9.9 x 5.7 x 5.7 cm Free fluid noted around liver, spleen, and in the pelvis area. Right Kidney: Superior/medial mass measures 3.1 x 2.9 x 3.1 cm, probable adrenal adenoma. Left Kidney: upper pole cyst measures 1.8 x 1.9 x 1.8 cm. Bladder: not seen , patient has catheter. Bilateral Jets seen: No IMPRESSION: 1. Ascites. 2. Right adrenal mass may reflect adenoma.
[2019-09-02] MEDS ORDERED: VANCOMYCIN 2,250 MG in SODIUM CHLORIDE 0.9% 500 ML 500 ML IVPB ONE (12:00)
--- NOTE | 2019-09-02 12:06 | CONS ---
CONSULTATION CHIEF COMPLAINT: Shortness of breath. This is a 74-year-old gentleman with history of coronary artery disease, cardiomyopathy, congestive heart failure, AICD, COPD, diabetes, hypertension, dyslipidemia, who presented to hospital with hypotension and shortness of breath. She is currently at [facility] on the [place]. At the time of my evaluation, he is still hypotensive. He is on Levophed, but is not in distress and he is no longer lethargic and somnolent. His chest x-ray showed left-sided pleural effusion and he is going to have a thoracentesis done. He developed new onset renal failure. He is currently receiving IV fluids as per child caregiver and will hold the diuretics at this time. PAST MEDICAL HISTORY: Significant for chronic systolic heart failure, coronary artery disease, hypertension, dyslipidemia, AICD, rheumatoid arthritis, peripheral vascular disease, diabetes and hypertension. MEDICATIONS: At home included Zoloft, Phenergan, K-Dur, Remeron, Lopressor, Imodium, Imdur, Lasix Lipitor, aspirin, and Tylenol. ALLERGIES: To PENICILLIN and NEURONTIN. FAMILY HISTORY: Negative for premature coronary artery disease. SOCIAL HISTORY: Negative for current smoking, EtOH abuse or drug abuse. REVIEW OF SYSTEMS: HEENT is unremarkable. CARDIAC: As described above. RESPIRATORY: As described above. GI: Negative. GENITOURINARY: Negative. ALLERGY/IMMUNOLOGY: Negative. SKIN: Negative. MUSCULOSKELETAL: Significant for arthralgias. PSYCHOSOCIAL: Negative. DERM: Negative. CONSTITUTIONAL: Negative. ONCOLOGICAL: Negative. Rest of the system review is not relevant. PHYSICAL EXAM: Patient appears comfortable at rest. Heart rate is 75 beats per minute. Blood pressure is 100/60, respiratory rate is 16. There is no jugular venous distention. Chest exam reveals diminished air entry at the bases. Heart exam reveals first and second heart sounds. Has a systolic murmur at the left lower sternal border. Abdomen is soft. Exam of the extremities reveals chronic stasis changes, mild edema and diminished pulses. LABS: Show that the hemoglobin is 8.2, platelet count is 140, potassium is 5.9, BUN is 77, creatinine is 4. BNP is 17,900. ASSESSMENT: 1. Acute worsening of chronic renal failure. 2. Chronic congestive heart failure without any evidence of acute exacerbation. 3. Peripheral vascular disease. 4. Ischemic cardiomyopathy. 5. Coronary artery disease. 6. Hypotension. PLAN: I agree with the current management plans including a trial of IV fluids, supportive care for renal failure, Levophed to maintain a systolic above 100 and when the blood pressure improves, we will resume his beta blockers. Will hold the Lasix until renal functions improve. Will hold the Zestril until renal function improves. MMROBERT / MAJON: [id number] /
[2019-09-02] MEDS: SODIUM CHLORIDE 0.45% 1,000 ML with SODIUM BICARB (1 MEQ/ML) 100 ML IV SCH ×2 (12:20)
--- NOTE | 2019-09-02 12:21 | CONS ---
CONSULTATION REASON FOR CONSULT: Renal failure. HISTORY OF PRESENT ILLNESS: The patient is a 74-year-old male who was sent in from [facility] with wounds bilateral lower extremities and increased weakness and low blood pressure. Patient was hypotensive and admitted to the ICU. He is maintained on Levophed. He has not had much urine output overnight. Serum creatinine was 4.1 mg/dL. It is about the same today. Review of previous labs shows a serum creatinine of 1.7 on 08/19/2019. Prior to admission, patient was maintained on AMANUEL inhibitors. He was also on diuretics which are currently on hold. He has been given fluid boluses, maintained on IV fluids and he also received a dose of IV Lasix last night with no improvement in urine output. PAST MEDICAL HISTORY: Significant for chronic bilateral lower extremity wounds, maintained on antibiotics at the [facility], previous history of kidney disease, CKD stage 3 most likely, COPD, type 2 diabetes, hyperlipidemia, hypertension, history of rheumatoid arthritis, anemia, history of MRSA and VRE. PAST SURGICAL HISTORY: Appendectomy, cholecystectomy, cardiac catheterization, coronary stent placement, tonsillectomy, hernia repair, cervical fusion, laminectomy, carpal tunnel release, coronary stents, PICC line placement, removal. SOCIAL HISTORY: Positive for smoking. No history of drug abuse or alcohol abuse. MEDICATIONS: Medications prior to admission included aspirin, Lipitor, Nitrostat, Zoloft, Tylenol, vitamin D3, Lasix, Santyl, Imdur, Imodium, Lopressor, potassium, Phenergan, Percocet, Remeron. ALLERGIES: Allergies include PENICILLIN, which causes rash and hives and NEURONTIN which causes nausea. REVIEW OF SYSTEMS: As per HPI. Other systems negative. PHYSICAL EXAMINATION: On examination, patient is comfortable, awake. He is not in any acute distress. Blood pressure is 105/61, heart rate 76 per minute. He is afebrile. EXAMINATION OF THE HEART: S1, S2. EXAMINATION OF THE LUNGS: Bilateral breath sounds are heard. ABDOMEN: Soft, nontender. Examination of lower extremities shows bilateral extremities to be wrapped. LABS: Labs show sodium 139, potassium 5.9, chloride 110, CO2 is 18, BUN 77, creatinine 4.18, hemoglobin 8.2 g/dL. UA shows WBCs 30, moderate blood and 1+ protein. ASSESSMENT: 1. Acute kidney injury, acute tubular necrosis, currently oliguric secondary to hypotension hypoperfusion maintained on IV fluids which we can continue for now. Patient has just received another fluid bolus. 2. Hyperkalemia associated with acute kidney injury. 3. Hypotension, most likely sepsis from bilateral leg wounds. 4. Left pleural effusion with complete opacification of the left hemithorax, scheduled for thoracentesis. 5. Chronic kidney disease, stage 3. Previous creatinine at 1.7 on 08/19/2019. However, we have creatinine as low as 1.3 and 1.2 mg/dL earlier in July. Etiology is likely diabetic kidney disease and nephrosclerosis. 6. Anemia, rule out iron deficiency. No active bleeding noted at this time. PLAN: Check ultrasound of the kidneys. Treat the hyperkalemia with IV medications. Repeat labs and change IV fluids to IV bicarb and reassess volume status after thoracentesis. Continue to avoid nephrotoxic agents. Check iron studies. Thank you for this consultation. We will continue to follow the patient with you during his hospitalization. MMODL / IJN: [id number] /
--- NOTE | 2019-09-02 13:00 | ECHOF ---
Referral Reason:chf MEASUREMENTS -------- HEIGHT: 180.3 cm WEIGHT: 99.8 kg BP: 96/53 RVIDd: 3.8 cm (< 3.3) IVSd: 0.9 cm (0.6 - 1.1) LVIDd: 5.6 cm (3.9 - 5.3) LVPWd: 1.2 cm (0.6 - 1.1) IVSs: 1.3 cm LVIDs: 4.7 cm LVPWs: 1.2 cm LAESV Index (A-L): 41.13 ml/m Ao Diam: 3.6 cm (2.0 - 3.7) AV Cusp: 1.4 cm (1.5 - 2.6) LA Diam: 4.8 cm (2.7 - 3.8) MV EXCURSION: 21.020 mm (> 18.000) MV EF SLOPE: 163 mm/s (70 - 150) EPSS: 1.5 cm MV E Abdulaziz: 1.25 m/s MV DecT: 151 ms MV A Abdulaziz: 1.16 m/s MV E/A Ratio: 1.07 AV maxP.30 mmHg AV meanP.79 mmHg AR PHT: 400 ms RAP: 5.00 mmHg RVSP: 38.41 mmHg FINDINGS -------- Sinus rhythm. This was a technically adequate study. The left ventricular size is normal. Left ventricular wall thickness is normal. There is moderate global hypokinesis of LV . Overall left ventricular systolic function is moderately impaired with, an EF between 35 - 40 %. Increased LAP Grade 2 Diastolic Dysfunction. The right ventricle is moderately enlarged. LA is moderately dilated 34-39 ml/m2 The right atrium was not well visualized. Electronic pacemaker lead seen in the right atrial cavity . Interatrial and interventricular septum intact. There is mild aortic regurgitation. There is mild aortic stenosis present. Peak/mean gradient acr oss the Aortic Valve is 17.30mmHg / 9.79mmHg. Bbym-or-vaodltpe mitral regurgitation is present. Mild tricuspid regurgitation present. There is mild pulmonary hypertension. The right ventricular systolic pressure, as measured by Doppler, is 38.41mmHg. There is no pulmonic regurgitation present. The aortic root size is normal. IVC Not well visulized. There is no pericardial effusion. Large Pleural Effusion. CONCLUSIONS -------- 1. Sinus rhythm. 2. This was a technically adequate study. 3. The left ventricular size is normal. 4. Left ventricular wall thickness is normal. 5. There is moderate global hypokinesis of LV . 6. Increased LAP Grade 2 Diastolic Dysfunction. 7. The right ventricle is moderately enlarged. 8. LA is moderately dilated 34-39 ml/m2 9. The right atrium was not well visualized. 10. Electronic pacemaker lead seen in the right atrial cavity. 11. Interatrial and interventricular septum intact. 12. There is mild aortic regurgitation. 13. There is mild aortic stenosis present. 14. Peak/mean gradient across the Aortic Valve is 17.30mmHg / 9.79mmHg. 15. Mprq-gk-qzghumub mitral regurgitation is present. 16. Mild tricuspid regurgitation present. 17. There is mild pulmonary hypertension. 18. The right ventricular systolic pressure, as measured by Doppler, is 38.41mmHg. 19. There is no pulmonic regurgitation present. 20. The aortic root size is normal. 21. IVC Not well visulized. 22. There is no pericardial effusion. 23. Large Pleural Effusion. CLEARANCE CUTTER: Comfort Currie RDCS
[2019-09-02 13:47] LABS: Potassium 6.3 mmol/L (3.5-5.1)
[2019-09-02 14:49] LABS: Calcium 8.2 mg/dL (8.4-10.2)
[2019-09-02] MEDS ORDERED: DEXTROSE 50% SYRINGE 50 ML IVP STA (15:07)
[2019-09-02 15:39] LABS: Glucose,Whole Blood 232 mg/dL (75-99)
--- NOTE | 2019-09-02 16:03 | CT ---
EXAMINATION TYPE: CT brain wo con DATE OF EXAM: 09/02/2019 COMPARISON: 11/24/2018 HISTORY: Uneven pupils and Left sided facial droop. CT DLP: 1188.[address] of the brain was performed. The ventricles, basal cisterns and sulci overlying the cerebral convexities demonstrate mild enlargem ent. There is no evidence for intracranial hemorrhage or sulcal effacement. There is decreased attenuation about the periventricular white matter and deep white matter of both c erebral hemispheres, compatible with chronic small vessel ischemia. Differential diagnosis does inclu de demyelination. No mass effects are seen.No midline shift. Osseous calvarium is intact. If symptoms persist consider MRI. IMPRESSION: 1. Age related atrophic and chronic small vessel ischemic change without acute intracranial process s een at this time.
--- NOTE | 2019-09-02 16:31 | P.CNNES ---
History of Present Illness Consult date: 09/02/19 Requesting physician: Reagan Rose Reason for Consult: Acute neuro deficits History of Present Illness: Patient is a 74-year-old male who came to the hospital yesterday for evaluation of low blood pressure, dyspnea. He was noted to be mildly encephalopathic, slow to respond to questions. However he was able to onset appropriately. Patient does have chronic kidney disease. Patient has osteomyelitis of the left foot for which she has been on IV antibiotics. Patient was noted to have acute on chronic renal insufficiency, large left pleural effusion, for which he underwent thoracentesis today. He developed hypotension, decreased urine output, hyperkalemia. Patient was admitted to the ICU. Patient was noted to be lethargic, responding less later this afternoon. Patient has some baseline anisocoria with right pupil larger than the left. This asymmetry was noted to be slightly more worse, with left pupil pinpoint. The nurse also noted that he has some right facial droop and the tongue tongue was protruding to the left. This prompted neurological consultation. Patient had undergone computed tomogr aphy scan of the head, which revealed no acute process. Patient denies headache. Patient himself offers no complaints. Patient had a 2-D echo performed today, which revealed sinus rhythm. Left-ventricular size is normal. Moderate global hypokinesis of left ventricle. Left atrium is moderately dilated. Electronic pacemaker lead seen in the right atrial cavity. Interatrial and interventricular septum intact. Mild aortic regurgitation. Mild aortic stenosis. Mild to moderate MR. Large pleural effusion. Patient denies any previous history of strokes. He does have history of coronary artery disease. Patient states that he does have history of cervical fusion, and chronic baseline weakness of the right arm. Patient has been diagnosed with hypertension, hyperlipidemia, sepsis, infectious disease, periodontal assistant, study hall supervisor have seen the patient. Patient states he has history of cervical surgery in 1996. He is chronic weakness in the right arm. Patient has diabetes for 4 years, hypertension, hyperlipidemia and CAD. He has smoked half pack per day off and on since age 14 , quit 1 year ago. Review of Systems Denies headache, patient complains of foot pain. Arthritis. Chronic right arm weakness. Shortness of breath. Denies nausea vomiting. Past Medical History Past Medical History: Heart Failure, COPD, Diabetes Mellitus, Hyperlipidemia, Hypertension, Myocardial Infarction (ID), Rheumatoid Arthritis (RA) Additional Past Medical History / Comment(s): L heel osteomylitis-pt states supposed to get wound vac, current R leg sore, pt concerned might have sore on coccyx currenly, NIDDM type II, neuropathy bilateral hands/legs and feet, past anemia. Last Myocardial Infarction Date:: 2010 History of Any Multi-Drug Resistant Organisms: MRSA, VRE Date of last positivie culture/infection: 12/08/15 MDRO Source:: RIGHT FOOT MRSA AND VRE Past Surgical History: AICD, Appendectomy, Cholecystectomy, Heart Catheterization With Stent, Hernia Repair, Tonsillectomy Additional Past Surgical History / Comment(s): cervical fusion/laminactomy , left carpal tunnel release, cataract left eye, HEART STENT X2, 10-16-15 PTBA /RT LEG STENT, rt hand x2 surgery d/t infection, umb hernia, past picc line, AICD [address]hatia Past Anesthesia/Blood Transfusion Reactions: Postoperative Nausea & Vomiting (PONV) Additional Past Anesthesia/Blood Transfusion Reaction / Comment(s): .PT STATED AFTER HAND SX HAD DIFFICULTY URINATING AND PAIN MEDS CONSTIPATE HIM. Date of Last Stent Placement:: 12/2013 Type of Cardiac Device: AICD Device Placement Date:: 2014 Past Psychological History: No Psychological Hx Reported Smoking Status: Current every day smoker Past Alcohol Use History: None Reported Past Drug Use History: None Reported - Past Family History Mother Family Medical History: Pneumonia Additional Family Medical History / Comment(s): PT STATED MOM WAS HEALTHY BUT IN OLDER AGE GOT PNE- FROM COMPLICATIONS OF PNE. Father Family Medical History: Coronary Artery Disease (CAD), Osteoarthritis (OA) Additional Family Medical History / Comment(s): ULCERS, HEART PROBLEMS HAD BYPASS,BACK SURGURY Medications and Allergies Home Medications Medication Instructions Recorded Confirmed Type Aspirin [Adult Low Dose Aspirin EC] 81 mg PO DAILY@0700 04/10/16 09/01/19 History Atorvastatin [Lipitor] 80 mg PO HS@199908/06/16 09/01/19 History Sertraline [Zoloft] 50 mg PO DAILY@1600 11/02/18 09/01/19 History Acetaminophen Tab [Tylenol] 650 mg PO Q6H PRN 05/18/19 09/01/19 History Cholecalciferol [Vitamin D3 (25 1,000 unit PO DAILY@1600 05/18/19 09/01/19 History Mcg = 1000 Iu)] Isosorbide Mononitrate [Isosorbide 30 mg PO DAILY@0705/18/19 09/01/19 History Mononitrate ER] Metoprolol Tartrate [Lopressor] 25 mg PO DAILY@0600 05/18/19 09/01/19 History Betamethasone Dipropionate 1 applic TOPICAL BID 09/01/19 09/01/19 History [Diprolene AF 0.05% Cream] Clopidogrel [Plavix] 75 mg PO DAILY@0709/01/19 09/01/19 History Fluticasone Nasal [place] [Flonase 1 spray EA NOSTRIL BID 09/01/19 09/01/19 History Nasal [place]] Furosemide [Lasix] 20 mg PO DAILY@1400 09/01/19 09/01/19 History Furosemide [Lasix] 40 mg PO DAILY@0709/01/19 09/01/19 History HYDROcodone/APAP 5-325MG [[place] 1 tab PO Q4HR PRN 09/01/19 09/01/19 History 5-325] Lactobacillus 1 cap PO DAILY@0709/01/19 09/01/19 History Lisinopril [Zestril] 2.5 mg PO DAILY@0609/01/19 09/01/19 History Mirtazapine [Remeron] 15 mg PO HS@199909/01/19 09/01/19 History Triamcinolone 0.1% Cream [Kenalog 1 applicatio TOPICAL DIRECTED 09/01/19 09/01/19 History 0.1% Cream] diphenhydrAMINE HCL [Benadryl] 25 mg PO Q12H PRN 09/01/19 09/01/19 History metFORMIN HCL [Glucophage] 500 mg PO DIRECTED 09/01/19 09/01/19 History Allergies Allergy/AdvReac Type Severity Reaction Status Date / Time Penicillins Allergy Rash/Hives Verified 09/01/19 19:00 gabapentin [From Neurontin] AdvReac Nausea Verified 09/01/19 19:00 Physical Examination - Vital Signs Vital Signs: Vital Signs Temp Pulse Pulse Resp BP Pulse Ox 09/02/19 14:15 75 15 93/55 96 09/02/19 14:00 75 15 97/65 97 02/13/20 13:45 77 15 96/61 95 09/02/19 13:30 80 14 99/54 91 L 09/02/19 13:15 79 15 95/67 84 L 09/02/19 13:00 79 15 101/54 92 L 09/02/19 12:55 72 09/02/19 12:47 76 09/02/19 12:45 75 14 78/41 96 09/02/19 12:30 72 14 77/43 94 L 09/02/19 12:15 73 28 H 93/62 95 09/02/19 12:00 98.1 F 76 13 91/57 92 L 09/02/19 11:45 80 31 H 91/54 93 L 09/02/19 11:30 82 20 84/41 98 09/02/19 11:15 81 20 82/28 96 09/02/19 11:00 86 19 104/68 89 L 09/02/19 10:45 78 14 86/54 93 L 09/02/19 10:30 78 14 96/53 96 09/02/19 10:15 80 15 76/45 95 09/02/19 10:00 75 14 84/52 93 L 09/02/19 09:45 76 14 105/61 95 09/02/19 09:30 80 2 L 91/53 94 L 09/02/19 09:15 78 14 93/54 93 L 09/02/19 09:00 72 14 82/64 95 09/02/19 08:45 72 20 101/50 94 L 09/02/19 08:30 77 12 96/60 94 L 09/02/19 08:15 70 20 82/53 94 L 09/02/19 08:06 70 09/02/19 08:00 98.1 F 68 22 112/60 100 09/02/19 07:59 66 09/02/19 07:58 66 02 07:45 65 20 104/60 99 09/02/19 07:30 67 23 83/66 95 09/02/19 07:15 69 22 98/59 94 L 09/02/19 07:00 70 16 93/49 96 09/02/19 06:45 71 20 100/43 96 09/02/19 06:30 65 18 106/51 09/02/19 06:15 71 16 98/57 09/02/19 06:00 70 93/55 95 09/02/19 05:45 103/72 94 L 09/02/19 05:30 98.1 F 72 17 98/62 96 09/02/19 05:15 75 102/59 94 L 09/02/19 05:00 74 95/62 94 L 09/02/19 04:45 73 99/56 94 L 09/02/19 04:30 74 16 89/58 93 L 09/02/19 04:15 97.9 F 71 16 85/53 94 L 09/02/19 04:00 74 16 110/64 95 09/02/19 03:45 73 17 100/62 96 09/02/19 03:30 69 14 105/64 96 09/02/19 03:27 67 09/02/19 03:17 70 09/02/19 03:15 68 15 109/65 96 09/02/19 03:00 70 17 104/69 97 09/02/19 02:45 70 16 100/67 95 09/02/19 02:30 69 100/82 98 09/02/19 02:15 97.9 F 71 112/60 94 L 09/02/19 02:00 68 16 106/80 93 L 09/02/19 01:45 69 103/66 97 09/02/19 01:30 69 105/58 96 09/02/19 01:15 69 107/68 95 09/02/19 01:00 70 114/67 94 L 09/02/19 00:45 75 108/72 94 L 09/02/19 00:30 73 124/72 94 L 09/02/19 00:15 114/57 93 L 09/02/19 00:00 97.5 F L 74 55 L 16 110/62 93 L 09/01/19 23:45 75 86/68 93 L 09/01/19 23:30 70 101/73 95 09/01/19 23:15 73 107/59 96 09/01/19 23:00 96.8 F L 73 16 102/58 95 09/01/19 22:45 73 115/57 93 L 09/01/19 22:30 71 14 104/44 93 L 09/01/19 22:15 73 14 87/48 90 L 09/01/19 22:00 71 17 78/46 94 L 09/01/19 21:45 73 25 H 91 L 09/01/19 21:30 70 119/60 93 L 09/01/19 21:15 66 15 114/48 95 09/01/19 21:00 65 119/64 96 09/01/19 20:45 64 19 120/64 96 09/01/19 20:30 63 118/63 97 09/01/19 20:25 60 09/01/19 20:15 58 L 15 121/67 100 09/01/19 20:14 58 L 09/01/19 20:06 58 L 09/01/19 20:00 93.9 F L 58 L 12 125/70 95 09/01/19 19:45 58 L 123/80 96 09/01/19 19:34 55 L 16 09/01/19 19:30 58 L 121/78 94 L 09/01/19 19:15 59 L 13 113/65 95 09/01/19 19:00 93.6 F L 56 L 14 113/60 96 09/01/19 18:45 54 L 108/56 09/01/19 18:30 45 H 108/56 09/01/19 18:29 58 L 90 H 09/01/19 18:11 94.7 F L 52 L 20 107/59 97 09/01/19 18:05 94.6 F L 09/01/19 18:03 51 L 20 107/59 100 09/01/19 17:48 94.2 F L 50 L 20 103/53 99 09/01/19 17:06 93.7 F L 48 L 20 86/53 100 09/01/19 16:21 46 L 16 84/56 98 Intake and Output 09/02/19 09/02/19 09/02/19 06:59 14:59 22:59 Intake Total 2321.665 7018.111 Output Total 85 25 Balance 3643.010 1943.111 Intake: IV 625 1450 Sodium Chloride 0.9% 1, 1000 000 ml @ 999 mls/hr IV . Q1H1M ONE Rx#:[id number] normal saline 625 450 Intake, IV Titration 256.234 57.111 Amount DAPTOmycin 870 mg In 50 Sodium Chloride 0.9% 50 ml @ 100 mls/hr IVPB Q48H [facility] Rx#:[id number] Norepinephrine 4 mg In 206 Sodium Chloride 0.9% 250 ml @ 0.05 MCG/KG/MIN 27. 651 mls/hr IV .Q9H12M ONE Rx#:[id number] Norepinephrine 8 mg In 0.234 57.111 Sodium Chloride 0.9% 250 ml @ 0.05 MCG/KG/MIN 14. 043 mls/hr IV .[id number] [facility] Rx#:[id number] Oral 440 Output: Urine 85 25 Other: Voiding Method Indwelling Catheter Indwelling Catheter Weight 127.7 kg 127.7 kg On examination patient is an elderly male, in mild respiratory distress. Patient has slightly slow mentation, but answering appropriately. Patient's speech is clear with no aphasia or dysarthria. Patient can name name and repeat well. He answering appropriately. On cranial nerve examination his right pupil is larger than the left. Both are round and reactive. Patient states he has cataract surgery only in the left eye. Extraocular muscles are intact. Visual rosenbaum are full. Patient has very mild right facial asymmetry. Tongue protrudes slightly to the left. On muscle strength testing there is no pronator drift. The strength is normal in the arms, except right triceps, which is weak about 4 there is normal on the left. Patient states that his right arm is weak from previous cervical fusion. Patient can wiggle both his feet equally, and lift both legs off the bed 25 bilaterally. Sensory touch is equal . No obvious ataxia. Patient does have some the myoclonic tremor. Results - Laboratory Findings CBC and BMP: 09/03/19 06:20 09/03/19 05:53 Abnormal Lab Findings: Abnormal Labs 09/01/19 09/01/19 09/01/19 15:20 15:20 15:20 RBC 2.79 L Hgb 8.4 L Hct 27.5 L MCHC 30.7 L RDW 17.3 H Plt Count 117 L Lymphocytes # 0.4 L PT INR Potassium 5.7 H Chloride 111 H Carbon Dioxide BUN 78 H Creatinine 4.14 H Glucose POC Glucose (mg/dL) Plasma Lactic Acid Steve 0.6 L Calcium 8.1 L AST 61 H Alkaline Phosphatase 151 H Total Protein 5.8 L Albumin 2.8 L TSH 6.450 H Urine Protein Urine Blood Ur Leukocyte Esterase Urine RBC Urine WBC Urine Bacteria Hyaline Casts Urine Mucus 0209/01/19 09/02/19 15:20 17:03 05:00 RBC 2.70 L Hgb 8.2 L Hct 26.7 L MCHC 30.8 L RDW 17.1 H Plt Count 141 L Lymphocytes # 0.2 L PT 12.5 H INR 1.2 H Potassium Chloride Carbon Dioxide BUN Creatinine Glucose POC Glucose (mg/dL) Plasma Lactic Acid Steve Calcium AST Alkaline Phosphatase Total Protein Albumin TSH Urine Protein 1+ H Urine Blood Moderate H Ur Leukocyte Esterase Small H Urine RBC 85 H Urine WBC 30 H Urine Bacteria Occasional H Hyaline Casts 38 H Urine Mucus Few H 09/02/19 09/02/19 09/02/19 05:00 12:09 15:37 RBC Hgb Hct MCHC RDW Plt Count Lymphocytes # PT INR Potassium 5.9 H 6.3 H* Chloride 110 H 112 H Carbon Dioxide 18 L 17 L BUN 77 H 82 H Creatinine 4.18 H 4.23 H Glucose 151 H 205 H POC Glucose (mg/dL) 232 H Plasma Lactic Acid Steve Calcium 8.2 L 8.2 L AST Alkaline Phosphatase 143 H Total Protein 5.9 L Albumin 2.8 L TSH Urine Protein Urine Blood Ur Leukocyte Esterase Urine RBC Urine WBC Urine Bacteria Hyaline Casts Urine Mucus Assessment and Plan Assessment: * 74-year-old male admitted with sepsis, hypotension, noted to have mild focal deficits with right facial asymmetry. Patient has chronic weakness of the right arm related to previous cervical fusion. Otherwise examination is nonfocal. Small lacunar CVA is a possibility. * Hypertension * Diabetes * Hyperlipidemia * Acute on chronic renal insufficiency. Plan: * Patient had computed tomography scan of the head, which revealed no acute process. * Patient will be continued on dual antiplatelet medications, if no medical contraindication. Patient has been on DAP prior to arrival to the hospital. * We will check carotid Doppler to rule out carotid stenosis. * Patient had a 2-D echo performed, which revealed no embolic source. * Patient's last hemoglobin A1c is 6.1 on 06/22/2019. We will recheck hemo globin A1c and fasting lipid panel. * Neurology will follow.
[2019-09-02] MEDS ORDERED: ACETAMINOPHEN TAB 325 MG TAB PO PRN (17:33)
--- NOTE | 2019-09-02 17:34 | US ---
EXAMINATION TYPE: US carotid duplex BILAT DATE OF EXAM: 09/02/2019 COMPARISON: NONE CLINICAL HISTORY: ?CVA. ICU patient unable to respond to questions; sepsis, fluid overload, pleural e ffusion, ARF US exam is technically limited by constant patient movement and heavy respiratory breathing. EXAM MEASUREMENTS: RIGHT: Peak Systolic Velocity (PSV) cm/sec ----- Right CCA: 70.6 ----- Right ICA: 85.2 ----- Right ECA: 101.1 ICA/CCA ratio: 1.2 RIGHT: End Diastole cm/sec ----- Right CCA: 0.0 ----- Right ICA: 25.6 ----- Right ECA: 0.0 LEFT: Peak Systolic Velocity (PSV) cm/sec ----- Left CCA: 94.0 ----- Left ICA: 92.5 ----- Left ECA: 128.6 ICA/CCA ratio: 1.0 LEFT: End Diastole cm/sec ----- Left CCA: 0.0 ----- Left ICA: 0.0 ----- Left ECA: 2.6 VERTEBRALS (direction of flow): Right Vertebral: Antegrade Left Vertebral: Antegrade Rhythm: Normal IMPRESSION: 1. Irregular, intimal wall changes are noted in bilateral carotid systems, especially at bilateral c arotid bifurcations. 2. Elevated PSV is only noted in left ECA.
[2019-09-02 17:46] LABS: Appearance,BF Clear; Color,BF Yellow; Nucleated Cells, Body Fluid 26 /uL; RBC, Body Fluid 126 /uL
[2019-09-02 17:49] LABS: Mononuclear WBC,Body Fluid 96 %; Polynuclear WBC,Body Fluid 3 %; Total Cells Counted,Body Fluid 100
--- NOTE | 2019-09-02 18:04 | PN ---
PROGRESS NOTE DATE OF SERVICE: 09/02/2019. REASON FOR FOLLOWUP: Sepsis, possible left knee wound infection versus line infection. INTERVAL HISTORY: The patient is currently afebrile. The patient's hemodynamics are slightly better, as his Levophed dose is down to 6 mcg compared to 7.2 yesterday. The patient is status post thoracocentesis today. Tolerated the procedure. Denies any worsening shortness of breath or cough. No nausea, no vomiting. No abdominal pain or diarrhea. PHYSICAL EXAMINATION: Blood pressure 110/61 with a pulse of 73, temperature 98.1. He is 92% on 3 L nasal cannula. General description is an elderly male lying in bed in no distress. RESPIRATORY SYSTEM: Unlabored breathing with decreased breath sounds at the base. HEART: S1, S2. Regular rate and rhythm. NAUSEA ABDOMEN: Soft. No tenderness. Left knee is currently dressed up. No obvious drainage on the dressing. LABS: Culture so far pending. DIAGNOSTIC IMPRESSION AND PLAN: Patient admitted to hospital with hypotension and shortness of breath which is likely multifactorial in this patient with concern for left heel infection versus PICC line infection, as the patient did have a PICC line for a couple of months now. Cultures are currently pending. Patient is covered with daptomycin and cefepime; to continue. Await surgical debridement of the left heel wound and continue with supportive care. MMODL / IJN: [id number] / MTDD
[2019-09-02 18:32] LABS: % Iron Saturation 21.46 (15.00-50.00)
--- NOTE | 2019-09-02 18:57 | PN ---
PROGRESS NOTE DATE OF SERVICE: 09/02/2019 This 74-year-old gentleman admitted mainly with shortness of breath is being closely monitored in the ICU at this time. The patient also had hypotension and hypoxic respiratory failure. Patient is on Levophed, which is being titrated off at this time. The patient had a massive left-sided pleural effusion. UTI was also suspected. Cultures are negative at this time. Multiple consultants are following the patient closely at this time. CT scan of the brain was also done. Neurology saw the patient. Nephrology also saw the patient for renal failure. The CT scan did not show any acute process. Patient is being closely monitored in the ICU at this time. As mentioned earlier, the cultures are negative so far. The potassium is 6.3, creatinine is 4.23, significantly elevated. Past medical history reviewed. REVIEW OF SYSTEMS: CARDIOVASCULAR SYSTEM: No angina, palpitations. RESPIRATORY SYSTEM: As mentioned earlier. GI: As mentioned earlier. : No dysuria or retention. NERVOUS SYSTEM: Diffusely weak. CURRENT MEDICATIONS: Reviewed. They include: 1. [place] 5 mg. 2. DuoNeb q.i.d. and p.r.n. 3. Pulmicort 1 mg. 4. Cefepime 1 gram IV daily. 5. Daptomycin 870 mg q.48 hours. 6. Perforomist 20 mcg b.i.d. 7. Narcan. 8. Levophed drip. 9. Protonix. PHYSICAL EXAMINATION: Patient is alert, oriented x1. Pulse 72, blood pressure 81/45, respiration 15, temperature 98.1, pulse ox 93% on 3 L. HEENT: Conjunctivae normal. Oral mucosa moist. NECK: No jugular venous distention. No carotid bruit. No lymph node enlargement. CARDIOVASCULAR SYSTEM: S1, S2 muffled. RESPIRATORY SYSTEM: Breath sounds diminished at the bases. No rhonchi. No crackles. ABDOMEN: Soft, non-tender. LEGS: Bilateral lege edema. NERVOUS SYSTEM: Diffusely weak. LABS/IMAGING: WBC 5.7, hemoglobin 8.2, sodium 141, potassium 6.3, creatinine 4.23. The chest x-ray, which was personally reviewed by me, still shows some pleural effusion on the left side and possible underlying pneumonia. Other labs are noted. ASSESSMENT: 1. Shortness of breath, possibly acute left-sided pneumonia with pleural effusion with atelectasis collapse with possible sepsis, present on admission. 2. Chronic obstructive pulmonary disease, acute exacerbation. 3. Change in mental status, acute metabolic encephalopathy, multifactorial. 4. Hypotension with severe sepsis and septic shock. 5. Increased creatinine with possible acute renal failure. 6. Hyperkalemia secondary to renal failure. 7. History of recent angiography. 8. Rule out contrast-induced nephropathy. 9. Hyperkalemia. 10.Hypoalbuminemia with mild to moderate protein-calorie malnutrition. 11.Anemia, normocytic; anemia of chronic disease. 12.Thrombocytopenia. 13.History of congestive heart failure with chronic systolic dysfunction, ejection fraction 20% to 25%, with possible cardiomyopathy. 14.History of chronic obstructive pulmonary disease. 15.History of diabetes mellitus, type 2. 16.Hypertension history. 17.Hyperlipidemia. 18.Myocardial infarction. 19.History of rheumatoid arthritis. 20.Left heel osteomyelitis. 21.History of peripheral neuropathy. 22.History of methicillin-resistant Staphylococcus aeruginosa, vancomycin-resistant Enterococcus .. 23.History of automated implantable cardioverter defibrillator. 24.Coronary artery disease, stent. 25.History of cervical fusion, laminectomy, degenerative joint disease. 26.History of postoperative nausea, vomiting. 27.History of automated implantable cardioverter defibrillator. 28.Obesity with body mass index of 44.6. 29.FULL CODE. RECOMMENDATIONS AND DISCUSSION: I recommend to continue current medications, continue with the monitoring, symptomatic treatment. Multiple consultants are following the patient closely. Continue the broad- spectrum IV antibiotics. Pressor support. Follow the cultures. Follow closely renal functions. Otherwise, monitor potassium closely. The prognosis is extremely guarded because of the multiple complex medical issues. Further recommendations to follow. We will check an 8 a.m. cortisol also tomorrow. Once again, the overall prognosis is guarded. Discussed with staff. See orders for further details. Further recommendations to follow. The patient had thoracocentesis and shortness of breath is slightly better compared to yesterday. MMODL / IJN: [id number] /
[2019-09-02] MEDS ORDERED: ATORVASTATIN 80 MG TAB PO SCH (20:00)
[2019-09-02] MEDS: CEFEPIME 1 GM in SODIUM CHLORIDE 0.9% 50 ML IVPB SCH (20:20)
[2019-09-02] MEDS: FLUTICASONE 50MCG/SPRAY NASAL 16GM EA NOSTRIL SCH (20:21)
[2019-09-02] MEDS: BETAMETHASONE DIPROPIONATE 0.05% CREAM 15 GM TUBE TOPICAL SCH (20:21)
[2019-09-02 20:31] LABS: Glucose,Whole Blood 208 mg/dL (75-99)
[2019-09-02] MEDS: INSULIN ASPART (NovoLOG) 100 UNIT/ML VIAL SQ SCH (20:34)
[2019-09-02 21:05] LABS: Calcium 8.5 mg/dL (8.4-10.2)
[2019-09-02 21:11] LABS: Potassium 6.7 mmol/L (3.5-5.1)
[2019-09-02] MEDS ORDERED: CALCIUM GLUCONATE 1 GM in SODIUM CHLORIDE 0.9% 100 ML IVPB ONE (21:37)
[2019-09-02] MEDS ORDERED: HEPARIN SODIUM 1,000 UN/ML (10ML VL) ONE (22:00)
[2019-09-02] MEDS ORDERED: LIDOCAINE 1% INJ 10MG/ML (20 ML MDV) ONE (22:00)
--- NOTE | 2019-09-02 22:18 | CONS ---
DATE OF CONSULTATION: 09/02/2019 This patient was seen on consultation, referred by Dr. De La Paz, Infectious Disease, for left heel debridement. This patient has a chronic wound on the left heel. Measurement is 4 x 4 cm with eschar formation and some drainage noted from the heel area and foul odor smell. We are consulted for debridement and deep culture. The patient has a left chest large pleural effusion. The patient also has a history of some intervention done by Dr. Beavers for peripheral vascular disease. MEDICAL HISTORY: History of diabetes mellitus, hypertension, [place], rheumatoid arthritis. SURGICAL HISTORY: Patient had an AICD in 2016, history of PTBA of the right leg and stent. PHYSICAL EXAMINATION: Patient was seen in his room. Patient has some shortness of breath. Chest has some crackles bilaterally. Abdomen is soft. Femorals are 1+ bilaterally, PT, DP not palpable. The left heel has a large infected wound which needs debridement and deep culture. Risks and complications were discussed. MMODL / IJN: [id number] / MTDD
[2019-09-02 22:32] LABS: Glucose, BF Source Pleural Fluid; Glucose, Body Fluid 159 mg/dL; LDH, Body Fluid Source Pleural Fluid; Total Protein, Body Fluid 1390 mg/dL
--- NOTE | 2019-09-02 23:21 | PCN ---
PROCEDURE NOTE DATE OF PROCEDURE: 09/02/2019 PROCEDURE: Left thoracentesis. PREOPERATIVE DIAGNOSIS: Left pleural effusion. POSTOPERATIVE DIAGNOSIS: Left pleural effusion. OPERATORS: 1. Dr. Rose. 2. Darcy Gonzalez. PROCEDURE DESCRIPTION: The left posterior chest was marked by ultrasound, and 2300 mL of yellow fluid was removed from the left pleural space. There was no immediate complication. A chest x- ray was ordered. The fluid will be sent for analysis, including cytology, microbiology and chemistry. Again, the patient tolerated the procedure well without any immediate complications. Additional recommendations and suggestions are forthcoming pending the results of the evaluation. There was informed consent and universal timeout. MMODL / IJN: [id number] /
[2019-09-03] MEDS ORDERED: HEPARIN SODIUM,PORCINE 5,000 UNIT/ML 1 ML VIAL ONE
[2019-09-03] MEDS: HYDROcodone/APAP 5-325MG 1 EACH TAB PO PRN ×2 (00:39→20:17)
[2019-09-03] MEDS: IPRATROPIUM-ALBUTEROL 3 ML NEB INHALATION SCH ×4 (02:30→19:56)
[2019-09-03] MEDS: SODIUM CHLORIDE 0.45% 1,000 ML with SODIUM BICARB (1 MEQ/ML) 100 ML IV SCH ×2 (02:31)
[2019-09-03 06:31] LABS: Anisocytosis Slight; Basophils % (A) 0 %; Eosinophils # (A) 0.1 k/uL (0-0.7); Eosinophils % (A) 1 %; HCT 27.9 % (39.0-53.0); HGB 8.9 gm/dL (13.0-17.5); Hypochromasia Slight; Lymphocytes # (A) 0.4 k/uL (1.0-4.8); Lymphocytes % (A) 4 %; MCH 30.5 pg (25.0-35.0); MCHC 31.9 g/dL (31.0-37.0); MCV 95.7 fL (80.0-100.0); Macrocytosis Slight; Mean Platelet Volume 10.8; Monocytes # (A) 0.6 k/uL (0-1.0); Monocytes % (A) 5 %; Neutrophils # (A) 10.3 k/uL (1.3-7.7); Neutrophils % (A) 89 %; RBC 2.92 m/uL (4.30-5.90); RDW 17.4 % (11.5-15.5); WBC 11.6 k/uL (3.8-10.6)
[2019-09-03 06:37] LABS: Glucose,Whole Blood 151 mg/dL (75-99)
[2019-09-03] MEDS: INSULIN ASPART (NovoLOG) 100 UNIT/ML VIAL SQ SCH ×3 (06:39→17:04)
[2019-09-03 06:58] LABS: Platelet Count 84 k/uL (150-450)
[2019-09-03] MEDS ORDERED: LACTOBACILLUS ACIDOPH & BULGAR 1 EACH PACKET PO SCH (07:00)
[2019-09-03] MEDS ORDERED: CLOPIDOGREL 75 MG TAB PO SCH (07:00)
[2019-09-03] MEDS ORDERED: ASPIRIN 81 MG PO SCH (07:00)
[2019-09-03] MEDS ORDERED: FUROSEMIDE 10 MG/ML 10 ML VIAL IV STA (07:52)
[2019-09-03 07:53] LABS: Albumin 2.8 g/dL (3.5-5.0); Calcium 8.4 mg/dL (8.4-10.2); Potassium 5.5 mmol/L (3.5-5.1); Total Bilirubin 0.6 mg/dL (0.2-1.3); Total Protein 5.8 g/dL (6.3-8.2)
--- NOTE | 2019-09-03 07:58 | PCN ---
PROCEDURE NOTE PREOPERATIVE DIAGNOSIS: Infected wound, left heel. Measurement is 4 x 4 cm with devitalized tissue and foul odor smell. PROCEDURE: Debridement of the wound down to subcutaneous tissue. DESCRIPTION OF THE PROCEDURE: Left foot was prepped and drapes were applied in usual sterile manner and 1% lidocaine was infiltrated. Using sharp knife, we excised and did the debridement of the left heel of devitalized tissue down to subcutaneous tissue and fat. All the devitalized tissue was removed, sent for culture and sensitivity. No active bleeding was noted. The wound was irrigated with saline. After that, we applied Medihoney gel to the wound. Dressing applied. Patient tolerated the procedure well. PLAN: Plan is continue with local wound care using Medihoney gel and the patient will be followed and Infectious Disease is following for IV antibiotics. MMODL / IJN: [id number] /
[2019-09-03] MEDS: FORMOTEROL FUMARATE 20 MCG/2 ML NEBU INHALATION SCH ×2 (08:09→19:56)
[2019-09-03] MEDS: BUDESONIDE 1 MG/2 ML NEBU INHALATION SCH ×2 (08:09→19:57)
--- NOTE | 2019-09-03 08:19 | P.PN ---
Subjective Patient is seen in follow-up for acute kidney injury on chronic kidney disease. Creatinine peaked at 4.37 this admission. Also noted to be persistently hyperkalemic. He was dialyzed urgently earlier this morning. Potassium level now 5.5. Remains acidotic. He is maintained on half-normal saline with 2 A of sodium bicarbonate running at 75 mL an hour. Patient also received IV Lasix 80 mg last night with no significant response in urine output. He is currently maintained on 6 mics of Levophed. Denies chest pain or shortness of breath. Vital signs are stable. Currently on Levophed. General: The patient appeared well nourished and normally developed. HEENT: Head exam is unremarkable. Neck is without jugular venous distension. LUNGS: Breath sounds decreased. HEART: Rate and Rhythm are regular. First and second heart sounds normal. No murmurs, rubs or gallops. ABDOMEN: Abdominal exam reveals normal bowel sounds. Non-tender. EXTREMITITES: 2+ edema. Objective - Vital Signs Vital signs: Vital Signs Temp 98.4 F 09/03/19 01:57 Pulse 73 09/03/19 08:09 Resp 12 09/03/19 07:00 BP 126/61 09/03/19 07:00 Pulse Ox 100 09/03/19 07:00 Intake & Output 09/02/19 09/03/19 09/03/19 18:59 06:59 18:59 Intake Total 1575.005 3364.943 75 Output Total 45 21 Balance 4193.197 6581.943 75 Weight 127.7 kg 131.9 kg Intake: IV 1900 900 75 Sodium Chloride 0.45% 1, 450 900 75 000 ml @ 75 mls/hr IV . [id number] [facility] with Sodium Bicarb (1 Meq/ml) 100 ml Rx#:[id number] Sodium Chloride 0.9% 1, 1000 000 ml @ 999 mls/hr IV . Q1H1M ONE Rx#:[id number] normal saline 450 Intake, IV Titration 57.111 582.943 Amount Calcium Gluconate 1 gm In 100 Sodium Chloride 0.9% 100 ml @ 100 mls/hr IVPB ONCE ONE Rx#:[id number] Cefepime 1 gm In Sodium 50 Chloride 0.9% 50 ml @ 100 mls/hr IVPB Q24H [facility] Rx# :[id number] Dextrose 10 % in Water 250 250 ml @ 999 mls/hr IV ONCE STA Rx#:[id number] Norepinephrine 8 mg In 57.111 182.943 Sodium Chloride 0.9% 250 ml @ 0.05 MCG/KG/MIN 14. 043 mls/hr IV .[id number] [facility] Rx#:[id number] Oral 240 Output: Urine 45 21 Hemodialysis 0 Other: Voiding Method Indwelling Catheter Indwelling Catheter - Labs CBC & Chem 7: 09/03/19 06:20 09/03/19 05:53 Labs: Abnormal Lab Results - Last 24 Hours (Table) 09/02/19 09/02/19 09/02/19 Range/Units 12:09 15:37 20:04 WBC (3.8-10.6) k/uL RBC (4.30-5.90) m/uL Hgb (13.0-17.5) gm/dL Hct (39.0-53.0) % RDW (11.5-15.5) % Plt Count (150-450) k/uL Neutrophils # (1.3-7.7) k/uL Lymphocytes # (1.0-4.8) k/uL Potassium 6.3 H* 6.7 H* (3.5-5.1) mmol/L Chloride 112 H 111 H (98-107) mmol/L Carbon Dioxide 17 L 17 L (22-30) mmol/L BUN 82 H 83 H (9-20) mg/dL Creatinine 4.23 H 4.37 H (0.66-1.25) mg/dL Glucose 205 H 201 H (74-99) mg/dL POC Glucose (mg/dL) 232 H (75-99) mg/dL Calcium 8.2 L (8.4-10.2) mg/dL Iron 50 L (65-175) ug/dL Total Protein (6.3-8.2) g/dL Albumin (3.5-5.0) g/dL 09/02/19 09/03/19 09/03/19 Range/Units 20:29 05:53 06:20 WBC 11.6 H (3.8-10.6) k/uL RBC 2.92 L (4.30-5.90) m/uL Hgb 8.9 L (13.0-17.5) gm/dL Hct 27.9 L (39.0-53.0) % RDW 17.4 H (11.5-15.5) % Plt Count 84 L (150-450) k/uL Neutrophils # 10.3 H (1.3-7.7) k/uL Lymphocytes # 0.4 L (1.0-4.8) k/uL Potassium 5.5 H (3.5-5.1) mmol/L Chloride 110 H (98-107) mmol/L Carbon Dioxide 17 L (22-30) mmol/L BUN 75 H (9-20) mg/dL Creatinine 3.96 H (0.66-1.25) mg/dL Glucose 148 H (74-99) mg/dL POC Glucose (mg/dL) 208 H (75-99) mg/dL Calcium (8.4-10.2) mg/dL Iron (65-175) ug/dL Total Protein 5.8 L (6.3-8.2) g/dL Albumin 2.8 L (3.5-5.0) g/dL 09/03/19 Range/Units 06:35 WBC (3.8-10.6) k/uL RBC (4.30-5.90) m/uL Hgb (13.0-17.5) gm/dL Hct (39.0-53.0) % RDW (11.5-15.5) % Plt Count (150-450) k/uL Neutrophils # (1.3-7.7) k/uL Lymphocytes # (1.0-4.8) k/uL Potassium (3.5-5.1) mmol/L Chloride (98-107) mmol/L Carbon Dioxide (22-30) mmol/L BUN (9-20) mg/dL Creatinine (0.66-1.25) mg/dL Glucose (74-99) mg/dL POC Glucose (mg/dL) 151 H (75-99) mg/dL Calcium (8.4-10.2) mg/dL Iron (65-175) ug/dL Total Protein (6.3-8.2) g/dL Albumin (3.5-5.0) g/dL Microbiology - Last 24 Hours (Table) 09/02/19 15:59 Gram Stain - Preliminary Heel - Left Tissue Culture - Preliminary 09/02/19 11:15 Acid Fast Bacilli Smear - Final Pleural Fluid Acid Fast Bacilli Culture - Preliminary 09/01/19 17:03 Urine Culture - Final Urine,Voided 09/02/19 11:15 Gram Stain - Preliminary Pleural Fluid Body Fluid Culture - Preliminary 09/02/19 11:15 Fungal Culture - Preliminary Pleural Fluid 09/01/19 15:20 Blood Culture - Preliminary Blood No Growth after 24 hours Assessment and Plan Plan: Assessment: 1. Acute kidney injury secondary to ATN secondary to hypotension. Creatinine peaked at 4.37 this admission. Status post hemodialysis earlier this morning due to persistent hyperkalemia. No hydronephrosis noted on kidney ultrasound. 2. Hyperkalemia secondary to acute kidney injury and metabolic acidosis. Improved postdialysis. 3. Metabolic acidosis secondary to acute kidney injury. 4. Volume overload. 5. Pleural effusion status post left-sided thoracentesis with 2.4 L drained. 6. Chronic kidney disease stage III with baseline creatinine in the range of 1.3-1.5. 7. Hypotension maintained on Levophed. 8. Anemia of chronic kidney disease. Iron saturation 21%. Plan: I will change IV fluids to D5W with 3 A of bicarb to be run at 75 mL an hour. Lasix 80 mg IV once today. Repeat BMP this evening at 5 PM. Continue to monitor renal function and urine output closely. Continue to assess on daily basis for need for renal replacement therapy. Wean Levophed. Add Aranesp.
[2019-09-03] MEDS ORDERED: DARBEPOETIN ALFA 40 MCG/0.4 ML SYRINGE SQ SCH (08:30)
[2019-09-03] MEDS: CLOPIDOGREL 75 MG TAB PO SCH (08:38)
[2019-09-03] MEDS: ASPIRIN 81 MG PO SCH (08:38)
[2019-09-03] MEDS: PANTOPRAZOLE 40 MG/10 ML VIAL IV SCH (08:39)
[2019-09-03] MEDS: FLUTICASONE 50MCG/SPRAY NASAL 16GM EA NOSTRIL SCH ×2 (08:39→20:18)
[2019-09-03] MEDS: LACTOBACILLUS ACIDOPH & BULGAR 1 EACH PACKET PO SCH (08:39)
--- NOTE | 2019-09-03 08:56 | PCN ---
PROCEDURE NOTE PREOPERATIVE DIAGNOSE: Acute renal failure. PROCEDURE: Placement of the dialysis catheter, ultrasound-guided right femoral approach. The patient was seen in the intensive care unit. Right groin was prepped and draped in the usual sterile manner, ultrasound-guided 1% lidocaine were injected and micropuncture into the right common femoral vein. Then we got venous return and micropuncture guidewire was passed and 4-English dilator was advanced on top of the guidewire. After that, we put a regular guidewire and sheath was drawn on top of the guidewire. Then we placed a triple-lumen dialysis catheter on top of the guidewire. There was decent venous return and flushed with heparin saline and hep-locked and secured with 3-0 nylon. Dressing applied. Patient tolerated the procedure well. MMROBERT / MAJON: [id number] /
[2019-09-03] MEDS: DEXTROSE 5% IN WATER 1,000 ML with SODIUM BICARB (1 MEQ/ML) 150 ML IV SCH (09:01)
--- NOTE | 2019-09-03 09:02 | P.PN ---
Subjective Progress Note Date: 09/03/19 This is a 74 old gentleman with history of of coronary artery disease, cardiomyopathy, congestive heart failure AICD, hypertension and dyslipidemia who was admitted to the hospital with hypotension and renal failure. Patient to Levophed dose is cut back to 6 mics and 60 seemed to be maintaining fairly well. He also had a portable Yesterday. His breathing is better. His BUN/creatinine are showing some improvement. So far. Blood cultures have been negative. Doesn't appear to be in acute distress at this time. We'll continue current management Objective - Vital Signs Vital signs: Vital Signs Temp 98.4 F 09/03/19 01:57 Pulse 75 09/03/19 08:29 Resp 12 09/03/19 07:00 BP 126/61 09/03/19 07:00 Pulse Ox 100 09/03/19 07:00 Intake & Output 09/02/19 09/03/19 09/03/19 18:59 06:59 18:59 Intake Total 6578.915 1958.943 75 Output Total 45 21 Balance 3660.884 8504.943 75 Weight 127.7 kg 131.9 kg Intake: IV 1900 900 75 Sodium Chloride 0.45% 1, 450 900 75 000 ml @ 75 mls/hr IV . [id number] [facility] with Sodium Bicarb (1 Meq/ml) 100 ml Rx#:[id number] Sodium Chloride 0.9% 1, 1000 000 ml @ 999 mls/hr IV . Q1H1M ONE Rx#:[id number] normal saline 450 Intake, IV Titration 57.111 582.943 Amount Calcium Gluconate 1 gm In 100 Sodium Chloride 0.9% 100 ml @ 100 mls/hr IVPB ONCE ONE Rx#:[id number] Cefepime 1 gm In Sodium 50 Chloride 0.9% 50 ml @ 100 mls/hr IVPB Q24H [facility] Rx# :[id number] Dextrose 10 % in Water 250 250 ml @ 999 mls/hr IV ONCE STA Rx#:[id number] Norepinephrine 8 mg In 57.111 182.943 Sodium Chloride 0.9% 250 ml @ 0.05 MCG/KG/MIN 14. 043 mls/hr IV .[id number] [facility] Rx#:[id number] Oral 240 Output: Urine 45 21 Hemodialysis 0 Other: Voiding Method Indwelling Catheter Indwelling Catheter - Exam GENERAL EXAM: Patient is alert and oriented and doesn't appear to be in any acute distress HEENT: Normocephalic. Normal reaction of pupils, equal size, normal range of extraocular motion. No erythema or exudates in the throat. NECK: No masses, no nuchal rigidity. CHEST: No chest wall deformity. LUNGS: Diminished breath sounds HEART: S1 and S2 normal with no audible mumurs or gallops. Regular rhythm ABDOMEN: No hepatosplenomegaly, normal bowel sounds, no guarding or rigidity. SKIN: No rashes CENTRAL NERVOUS SYSTEM: No focal deficits. EXTREMITIES: No cyanosis, clubbing or edema. - Labs CBC & Chem 7: 09/03/19 06:20 09/03/19 05:53 Labs: Abnormal Lab Results - Last 24 Hours (Table) 09/02/19 09/02/19 09/02/19 Range/Units 12:09 15:37 20:04 WBC (3.8-10.6) k/uL RBC (4.30-5.90) m/uL Hgb (13.0-17.5) gm/dL Hct (39.0-53.0) % RDW (11.5-15.5) % Plt Count (150-450) k/uL Neutrophils # (1.3-7.7) k/uL Lymphocytes # (1.0-4.8) k/uL Potassium 6.3 H* 6.7 H* (3.5-5.1) mmol/L Chloride 112 H 111 H (98-107) mmol/L Carbon Dioxide 17 L 17 L (22-30) mmol/L BUN 82 H 83 H (9-20) mg/dL Creatinine 4.23 H 4.37 H (0.66-1.25) mg/dL Glucose 205 H 201 H (74-99) mg/dL POC Glucose (mg/dL) 232 H (75-99) mg/dL Calcium 8.2 L (8.4-10.2) mg/dL Iron 50 L (65-175) ug/dL Total Protein (6.3-8.2) g/dL Albumin (3.5-5.0) g/dL 09/02/19 09/03/19 09/03/19 Range/Units 20:29 05:53 06:20 WBC 11.6 H (3.8-10.6) k/uL RBC 2.92 L (4.30-5.90) m/uL Hgb 8.9 L (13.0-17.5) gm/dL Hct 27.9 L (39.0-53.0) % RDW 17.4 H (11.5-15.5) % Plt Count 84 L (150-450) k/uL Neutrophils # 10.3 H (1.3-7.7) k/uL Lymphocytes # 0.4 L (1.0-4.8) k/uL Potassium 5.5 H (3.5-5.1) mmol/L Chloride 110 H (98-107) mmol/L Carbon Dioxide 17 L (22-30) mmol/L BUN 75 H (9-20) mg/dL Creatinine 3.96 H (0.66-1.25) mg/dL Glucose 148 H (74-99) mg/dL POC Glucose (mg/dL) 208 H (75-99) mg/dL Calcium (8.4-10.2) mg/dL Iron (65-175) ug/dL Total Protein 5.8 L (6.3-8.2) g/dL Albumin 2.8 L (3.5-5.0) g/dL 09/03/19 Range/Units 06:35 WBC (3.8-10.6) k/uL RBC (4.30-5.90) m/uL Hgb (13.0-17.5) gm/dL Hct (39.0-53.0) % RDW (11.5-15.5) % Plt Count (150-450) k/uL Neutrophils # (1.3-7.7) k/uL Lymphocytes # (1.0-4.8) k/uL Potassium (3.5-5.1) mmol/L Chloride (98-107) mmol/L Carbon Dioxide (22-30) mmol/L BUN (9-20) mg/dL Creatinine (0.66-1.25) mg/dL Glucose (74-99) mg/dL POC Glucose (mg/dL) 151 H (75-99) mg/dL Calcium (8.4-10.2) mg/dL Iron (65-175) ug/dL Total Protein (6.3-8.2) g/dL Albumin (3.5-5.0) g/dL Microbiology - Last 24 Hours (Table) 09/02/19 15:59 Gram Stain - Preliminary Heel - Left Tissue Culture - Preliminary 09/02/19 11:15 Acid Fast Bacilli Smear - Final Pleural Fluid Acid Fast Bacilli Culture - Preliminary 09/01/19 17:03 Urine Culture - Final Urine,Voided 09/02/19 11:15 Gram Stain - Preliminary Pleural Fluid Body Fluid Culture - Preliminary 09/02/19 11:15 Fungal Culture - Preliminary Pleural Fluid 09/01/19 15:20 Blood Culture - Preliminary Blood No Growth after 24 hours Assessment and Plan (1) Bilateral lower extremity edema Current Visit: Yes Status: Acute Code(s): R60.0 - LOCALIZED EDEMA SNOMED Code(s): 391636393 (2) CAD (coronary artery disease) Current Visit: Yes Status: Acute Code(s): I25.10 - ATHSCL HEART DISEASE OF [place] CORONARY ARTERY W/O ANG PCTRS SNOMED Code(s): 453694361 (3) Pleural effusion Current Visit: Yes Status: Acute Code(s): J90 - PLEURAL EFFUSION, NOT ELSEWHERE CLASSIFIED SNOMED Code(s): 56549101 (4) Pressure ulcer, heel, left, unstageable Current Visit: Yes Status: Acute Code(s): L89.620 - PRESSURE ULCER OF LEFT HEEL, UNSTAGEABLE SNOMED Code(s): 900153202 (5) Acute renal failure Current Visit: Yes Status: Acute Code(s): N17.9 - ACUTE KIDNEY FAILURE, UNSPECIFIED SNOMED Code(s): 63034823 Plan: Overall patient seemed to be feeling better. His renal function is slowly im proving. Diuretics are on hold. Continue current medical therapy. We'll follow
--- NOTE | 2019-09-03 09:50 | CONS ---
DATE OF CONSULTATION: 09/03/2019 This is a 74-year-old gentleman. I was called in for emergency placement of dialysis catheter. Patient has an acute current failure with high potassium. MEDICAL HISTORY: Includes history of hypertension, acute left side pneumonia, COPD, renal failure, hyperkalemia, diabetes mellitus, hypertension, history of AICD placement, history of coronary artery disease. PERSONAL HISTORY: Allergic to PENICILLIN and GABAPENTIN. PHYSICAL EXAMINATION: Patient was seen in his room. Patient is very short of breath. NECK: Supple. No bruit appreciated. Patient has decreased breath sounds and some crackles bilateral. Abdomen is soft, nontender. Femorals are not palpable. Patient has a marked bilateral edema of the extremity. PLAN: Placement of the dialysis catheter. Risks and complications discussed. MMODL / IJN: [id number] / MTDD
[2019-09-03] MEDS: BETAMETHASONE DIPROPIONATE 0.05% CREAM 15 GM TUBE TOPICAL SCH ×2 (10:13→20:18)
--- NOTE | 2019-09-03 10:19 | PN ---
PROGRESS NOTE PULMONARY/CRITICAL CARE PROGRESS NOTE: DATE OF SERVICE: 09/03/2019 A 74-year-old gentleman who was seen yesterday in consultation. He has a history of multiple medical problems including diabetes, benign essential hypertension, hyperlipidemia, chronic kidney disease, heart failure, previous AICD placement, and COPD. Anyway, he presented to the emergency department with low blood pressure and shortness of breath. Yesterday, we did a thoracentesis on him. It was a left-sided thoracentesis and 2300 mL of fluid was removed. In addition, Dr. Barth did a left foot debridement on him and inserted a hemodialysis catheter and he underwent ultrafiltration for hyperkalemia. He had a brain scan which was negative. He had some mental status changes and his nurse was concerned. Currently, he is on 4 L nasal cannula, norepinephrine at 6 mcg/minute and D5W with 3 amps of bicarbonate at 75 mL an hour. He is much more awake and alert. In addition, the patient has a history of osteomyelitis of the left foot and apparently had a PICC line in his right upper extremity for 6 months. That will be removed. Current vital signs are reviewed, temperature is 97.9, heart rate 80, respiratory rate 12, blood pressure 107/63 mean 77, saturations on 4 L are 97%. Appears in no acute distress. HEENT: Examination is grossly unremarkable. Mucous membranes are moist. No oral lesions. NECK: Supple, full range of motion. No adenopathy. Neck veins are flat. CARDIOVASCULAR: Examination reveals regular rhythm and rate. Heart rate 80. S1, S2 normal. Heart sounds are distant. LUNGS: Reveal mostly clear breath sounds. Breath sounds are diminished at the left base. There are a few scattered crackles at the left base. A few scattered diffuse rhonchi are noted as well. ABDOMEN: Soft, bowel sounds are heard. EXTREMITIES: Reveal significant edema. SKIN: Reveals some chronic venostasis changes particularly to the lower extremities. There is also some areas of excoriation around the right shoulder and right upper arm area. NEUROLOGIC: Examination is brief but nonfocal. LABS: Reviewed. White count 11.6, hemoglobin 8.9, hematocrit 27.9, platelet count 84,000, sodium 140, potassium 5.5, chloride is 110, CO2 is 17, anion gap 13. BUN and creatinine were 75 and 3.96. Albumin 2.8. The chest x-ray shows residual left-sided pleural effusion. The pleural effusion prior to the thoracentesis yesterday was substantial. There is some basilar atelectasis as well. Microbiology thus far is negative. Medications are reviewed. The patient is on Maxipime and daptomycin. He remains on Pulmicort and formoterol as well as DuoNeb. ASSESSMENT: 1. Shortness of breath, most likely secondary to a large left-sided pleural effusion, status post thoracentesis on September 02, with 2300 mL of fluid removed. It was sent for evaluation. 2. Rule out urinary tract infection/urosepsis. 3. Osteomyelitis of the left foot. 4. History of diabetes mellitus with diabetic neuropathy. 5. History of hypertension. 6. Hyperlipidemia by history. 7. Chronic kidney disease, status post hemodialysis/ultrafiltration on September 02. 8. History of congestive heart failure. 9. Status post AICD placement. 10.History of ongoing tobacco use. 11.Probable chronic obstructive pulmonary disease. 12.History of rheumatoid arthritis. 13.History of myocardial infarction. 14.Prior history of MRSA infection and vancomycin-resistant enterococci infection. PLAN: The patient had ultrafiltration yesterday. No plans for hemodialysis today. The patient remains on Levophed. Will check a cortisol level. He is on bicarb drip. He had a left-sided thoracentesis yesterday and 2300 mL of fluid was removed. The patient had a left foot debridement as well. We will continue to follow. The brain scan was negative. Prognosis is guarded. MMODL / IJN: [id number] /
--- NOTE | 2019-09-03 10:48 | XR ---
EXAMINATION TYPE: XR chest 1V portable DATE OF EXAM: 09/03/2019 COMPARISON: Prior chest x-ray 09/02/2019 HISTORY: Abnormal chest x-ray TECHNIQUE: Single frontal view of the chest is obtained. FINDINGS: Postop changes are noted in the cervical spine. There is a generator in the left pectoral region, intracardiac defibrillator lead in the right ventricle. Heart is enlarged. Retrocardiac densi ty obscures the left hemidiaphragm and heart border. There is no evident pneumothorax. Right-sided PI CC line is in place, tip is coursing towards the right atrium but is not well seen. Interstitium is i ncreased. Aorta is dense and possibly ectatic. IMPRESSION: Left pleural effusion and associated atelectasis, correlate for possible edema or pneumo adrienne mother may be underlying congestive heart failure.
[2019-09-03 11:48] LABS: Hepatitis B Surface AB- Quant 3.5 mIU/mL; Hepatitis B Surface Antibody Non-Reactive (Non-Reactive); Hepatitis B Surface Antigen Non-Reactive (Non-Reactive)
[2019-09-03] MEDS ORDERED: LIDOCAINE 1% INJ 10MG/ML (20 ML MDV) SQ ONE (12:05)
--- NOTE | 2019-09-03 12:38 | XR ---
EXAMINATION TYPE: XR chest 1V portable DATE OF EXAM: 09/03/2019 COMPARISON: Prior chest x-ray same date several minutes earlier HISTORY: PICC line manipulation TECHNIQUE: Single frontal view of the chest is obtained. FINDINGS: No significant interval change. IMPRESSION: PICC line remains coiled in the left innominate vein
--- NOTE | 2019-09-03 12:38 | XR ---
EXAMINATION TYPE: XR chest 1V portable DATE OF EXAM: 09/03/2019 COMPARISON: Prior chest x-ray same date at earlier time HISTORY: PICC line placement TECHNIQUE: Single frontal view of the chest is obtained. FINDINGS: Left-sided PICC line is been placed in the interval but is coiled in the left innominate v ein, no other significant interval change IMPRESSION: PICC line as described
--- NOTE | 2019-09-03 12:39 | XR ---
EXAMINATION TYPE: XR chest 1V portable DATE OF EXAM: 09/03/2019 COMPARISON: Prior chest x-ray 3 minutes earlier HISTORY: PICC line placement TECHNIQUE: Single frontal view of the chest is obtained. FINDINGS: PICC line has been repositioned in the interval, distal tip coursing into the right atrium . No other significant interval change. IMPRESSION: PICC line reposition
--- NOTE | 2019-09-03 12:40 | XR ---
EXAMINATION TYPE: XR chest 1V portable DATE OF EXAM: 09/03/2019 COMPARISON: Prior chest x-ray 2 minutes earlier HISTORY: PICC line reposition TECHNIQUE: Single frontal view of the chest is obtained. FINDINGS: PICC line has been repositioned, distal tip is overlying the superior vena cava. No other interval change. IMPRESSION: No evident complication status post PICC line placement.
--- NOTE | 2019-09-03 15:17 | FL ---
EXAMINATION TYPE: FL barium swallow w video DATE OF EXAM: 09/03/2019 MODIFIED SWALLOW / DEGLUTITION STUDY CLINICAL HISTORY: Dysphagia. TECHNIQUE: Deglutition study is performed utilizing thin liquid barium, honey and nectar thick liqui d barium, barium thick abutting, and ground assistance he. 1 minute and 23 seconds of fluoroscopy adeola e was utilized with 0 fluoroscopic images saved as the examination was video recorded. COMPARISON: None. FINDINGS: The oral and pharyngeal phases show delayed initiation and delayed propagation with all mod alities tested. Diminished peristalsis is seen with all modalities tested. Trace laryngeal penetrati on is noted with the thin consistency. Vallecular retention and posterior pharyngeal wall residue inc reases with increasing viscosity involving the nectar thick, pudding, and ground consistencies. [place] trace penetration was seen when testing thin barium consistency through a straw. Poor epiglottic excursion was also seen throughout the exam. IMPRESSION: Diminished peristalsis, poor epiglottic excursion, delayed initiation and delayed propaga tion with all modalities tested. Trace laryngeal penetration was seen with the thin consistency with vallecular and posterior pharyngeal wall increasing retention with increasing viscosity of all modal ities tested. Please refer to speech therapist notes for further details if necessary.
[2019-09-03 15:22] LABS: Hemoglobin A1C 6.2 % (4.0-6.0)
--- NOTE | 2019-09-03 15:29 | PN ---
PROGRESS NOTE DATE OF SERVICE: 09/03/2019 REASON FOR FOLLOWUP: Left heel infected pressure ulcer with sepsis. INTERVAL HISTORY: The patient is currently afebrile. Patient is breathing comfortably. Patient did get a new PICC line on the left side site. Right PICC line is going to be discontinued. No nausea, no vomiting. No abdominal pain. No diarrhea or any worsening pain to the left heel. PHYSICAL EXAMINATION: Blood pressure 120/70 with a pulse of 79, temperature 98, he is 96% on 2 L nasal cannula. General description is an elderly male, lying in bed in no distress. RESPIRATORY SYSTEM: Unlabored breathing, clear to auscultation anteriorly. HEART: S1, S2. Regular rate and rhythm ABDOMEN: Soft, no tenderness.. EXTREMITIES: Left heel is currently dressed up, no obvious drainage on the dressing. LABS: Hemoglobin 8.8, white count 11.6, creatinine 3.96, left heel cultures currently pending. DIAGNOSTIC IMPRESSION AND PLAN: Patient admitted to the hospital hypertension, which is likely multifactorial in this patient with possible component of left heel infected pressure ulcer. Patient at this time will continue on the daptomycin and cefepime while waiting for the culture to finalize and continue supportive care. MMODL / IJN: [id number] / MTDD
[2019-09-03 17:00] LABS: Glucose,Whole Blood 191 mg/dL (75-99)
--- NOTE | 2019-09-03 17:20 | P.PN ---
Subjective Progress Note Date: 09/03/19 Patient was seen for a follow-up. Patient's son was also present. Patient is much more alert and awake. Patient denies any new neurological symptoms. Continues to have some weakness of the right arm, which is probably chronic from his previous neck surgery. No new focal symptoms. Patient again tells me that he has history of cervical surgery in 1996. He has chronic weakness in the right upper limb. Objective - Vital Signs Vital signs: Vital Signs Temp 97.9 F 09/03/19 08:00 Pulse 79 09/03/19 14:15 Resp 12 09/03/19 14:15 BP 102/30 09/03/19 14:15 Pulse Ox 96 09/03/19 14:15 Intake & Output 09/02/19 09/03/19 09/03/19 18:59 06:59 18:59 Intake Total 5912.014 9650.943 300 Output Total 45 21 20 Balance 4920.280 8306.943 280 Weight 127.7 kg 131.9 kg Intake: IV 1900 900 300 Dextrose 5% in Water 1, 150 000 ml @ 75 mls/hr IV . [id number] [facility] with Sodium Bicarb (1 Meq/ml) 150 ml Rx#:[id number] Sodium Chloride 0.45% 1, 450 900 150 000 ml @ 75 mls/hr IV . [id number] [facility] with Sodium Bicarb (1 Meq/ml) 100 ml Rx#:[id number] Sodium Chloride 0.9% 1, 1000 000 ml @ 999 mls/hr IV . Q1H1M ONE Rx#:[id number] normal saline 450 Intake, IV Titration 57.111 582.943 Amount Calcium Gluconate 1 gm In 100 Sodium Chloride 0.9% 100 ml @ 100 mls/hr IVPB ONCE ONE Rx#:[id number] Cefepime 1 gm In Sodium 50 Chloride 0.9% 50 ml @ 100 mls/hr IVPB Q24H CHEV[facility] Rx# :[id number] Dextrose 10 % in Water 250 250 ml @ 999 mls/hr IV ONCE STA Rx#:[id number] Norepinephrine 8 mg In 57.111 182.943 Sodium Chloride 0.9% 250 ml @ 0.05 MCG/KG/MIN 14. 043 mls/hr IV .[id number] CHEVY Rx#:[id number] Oral 240 Output: Urine 45 21 20 Hemodialysis 0 Other: Voiding Method Indwelling Catheter Indwelling Catheter Indwelling Catheter - Exam On examination patient is alert and awake. His speech is moderately hoarse but no obvious aphasia or dysarthria. Patient's comprehension is intact. Patient is following commands. His mentation is normal although slightly slow. On cranial nerve examination his pupils are still 9 anisocoric, with lack right slightly larger than the left. He had cataract surgery only in the left eye. Visual rosenbaum are full. He has very mild right facial asymmetry. Tongue protrudes slightly to the left. There is mild right drift but no pronation. The medical anthropologist is 5-on the right. Triceps is 4 on the right. Deltoid and biceps appears normal. Patient can wiggle his toes, ankles and move his hips equally bilaterally. - Labs CBC & Chem 7: 09/03/19 06:20 09/03/19 05:53 Labs: Abnormal Lab Results - Last 24 Hours (Table) 09/02/19 09/02/19 09/02/19 Range/Units 12:09 20:04 20:29 WBC (3.8-10.6) k/uL RBC (4.30-5.90) m/uL Hgb (13.0-17.5) gm/dL Hct (39.0-53.0) % RDW (11.5-15.5) % Plt Count (150-450) k/uL Neutrophils # (1.3-7.7) k/uL Lymphocytes # (1.0-4.8) k/uL Potassium 6.7 H* (3.5-5.1) mmol/L Chloride 111 H (98-107) mmol/L Carbon Dioxide 17 L (22-30) mmol/L BUN 83 H (9-20) mg/dL Creatinine 4.37 H (0.66-1.25) mg/dL Glucose 201 H (74-99) mg/dL POC Glucose (mg/dL) 208 H (75-99) mg/dL Hemoglobin A1c (4.0-6.0) % Iron 50 L (65-175) ug/dL Total Protein (6.3-8.2) g/dL Albumin (3.5-5.0) g/dL 09/03/19 09/03/19 09/03/19 Range/Units 05:53 06:20 06:20 WBC 11.6 H (3.8-10.6) k/uL RBC 2.92 L (4.30-5.90) m/uL Hgb 8.9 L (13.0-17.5) gm/dL Hct 27.9 L (39.0-53.0) % RDW 17.4 H (11.5-15.5) % Plt Count 84 L (150-450) k/uL Neutrophils # 10.3 H (1.3-7.7) k/uL Lymphocytes # 0.4 L (1.0-4.8) k/uL Potassium 5.5 H (3.5-5.1) mmol/L Chloride 110 H (98-107) mmol/L Carbon Dioxide 17 L (22-30) mmol/L BUN 75 H (9-20) mg/dL Creatinine 3.96 H (0.66-1.25) mg/dL Glucose 148 H (74-99) mg/dL POC Glucose (mg/dL) (75-99) mg/dL Hemoglobin A1c 6.2 H (4.0-6.0) % Iron (65-175) ug/dL Total Protein 5.8 L (6.3-8.2) g/dL Albumin 2.8 L (3.5-5.0) g/dL 09/03/19 09/03/19 Range/Units 06:35 16:59 WBC (3.8-10.6) k/uL RBC (4.30-5.90) m/uL Hgb (13.0-17.5) gm/dL Hct (39.0-53.0) % RDW (11.5-15.5) % Plt Count (150-450) k/uL Neutrophils # (1.3-7.7) k/uL Lymphocytes # (1.0-4.8) k/uL Potassium (3.5-5.1) mmol/L Chloride (98-107) mmol/L Carbon Dioxide (22-30) mmol/L BUN (9-20) mg/dL Creatinine (0.66-1.25) mg/dL Glucose (74-99) mg/dL POC Glucose (mg/dL) 151 H 191 H (75-99) mg/dL Hemoglobin A1c (4.0-6.0) % Iron (65-175) ug/dL Total Protein (6.3-8.2) g/dL Albumin (3.5-5.0) g/dL Microbiology - Last 24 Hours (Table) 09/02/19 11:15 Gram Stain - Preliminary Pleural Fluid Body Fluid Culture - Preliminary 09/02/19 15:59 Gram Stain - Preliminary Heel - Left Tissue Culture - Preliminary 09/02/19 11:15 Acid Fast Bacilli Smear - Final Pleural Fluid Acid Fast Bacilli Culture - Preliminary 09/01/19 17:03 Urine Culture - Final Urine,Voided 09/02/19 11:15 Fungal Culture - Preliminary Pleural Fluid 09/01/19 15:20 Blood Culture - Preliminary Blood No Growth after 24 hours Assessment and Plan Assessment: * 74-year-old male admitted with sepsis, hypotension, noted to have mild focal deficits with right facial asymmetry. Patient has chronic weakness of the ri ght arm related to previous cervical fusion. Otherwise examination is nonfocal. Small lacunar CVA is a possibility. * Hypertension * Diabetes * Hyperlipidemia * Acute on chronic renal insufficiency. Plan: * Patient had computed tomography scan of the head, which revealed no acute process. * Patient will be continued on dual antiplatelet medications, if no medical contraindication. Patient has been on DAP prior to arrival to the hospital. * Carotid Doppler revealed irregular intimal wall changes noted in bilateral carotid systems, especially in bilateral carotid bifurcations. Antegrade flow in both vertebral arteries. * Patient had a 2-D echo performed, which revealed no embolic source. * Hemoglobin A1c is 6.2. Lipid panel pending. * Patient is neurologically stable. Continue present management. * Neurology coverage not available on the weekend.
--- NOTE | 2019-09-03 17:31 | PN ---
PROGRESS NOTE DATE OF SERVICE: 09/03/2019 This 74-year-old gentleman who was admitted with shortness of breath also had left- sided pneumonia and pleural effusion. The patient had thoracocentesis at this time. The patient also had renal failure. The patient was started on hemodialysis through a right inguinal temporary dialysis catheter. Ultrafiltration has been done today. The creatinine was found to be 3.96 and also the potassium worsened to 6.67. The patient is also on broad-spectrum IV antibiotics. The cultures are negative so far. At this time multiple consultants are following the patient closely. The patient also underwent a swallow study. Dr. Rose is following the patient closely. The patient's most recent chest x-ray, which was reviewed personally by me, showed significant improvement in the left pleural effusion. Still bilateral lung lesions are noted. Past medical history reviewed. REVIEW OF SYSTEMS: CARDIOVASCULAR SYSTEM: As mentioned earlier. RESPIRATORY SYSTEM: As mentioned earlier. GI: As mentioned earlier. NERVOUS SYSTEM: Diffusely weak. CURRENT MEDICATIONS: Reviewed. They include: 1. Tylenol p.r.n. 2. [place] 5 mg q.4 p.r.n. 3. DuoNeb q.i.d. and p.r.n. 4. Aspirin. 5. Betamethasone topically. 6. Pulmicort 1 mg b.i.d. 7. Cefepime 1 gram IV daily. 8. Plavix 75 mg p.o. daily. 9. Daptomycin 870 mg p.o. q.48 hours. 10.Aranesp 40 mg subcutaneously q.7 days. 11.Dextrose with bicarb drip. 12.Flonase p.r.n. 13.Perforomist. 14.NovoLog. 15.Lactinex. 16.Narcan. 17.Levophed drip. 18.Protonix 40 mg IV daily. 19.Kenalog b.i.d. topically. PHYSICAL EXAMINATION: Patient is alert, oriented x1. Pulse 79, blood pressure 102/30, respiration 12, temperature normal, pulse ox 96% on room air HEENT: Conjunctivae normal. Oral mucosa moist. Facial puffiness present. NECK: No jugular venous distention. No carotid bruit. No lymph node enlargement. CARDIOVASCULAR SYSTEM: S1, S2 muffled. No S3. No S4. RESPIRATORY SYSTEM: Breath sounds diminished at the bases. Bilateral scattered rhonchi and crackles. Expiratory wheezing also present. ABDOMEN: Soft, obese, non-tender. No mass palpable. LEGS: Bilateral leg edema. NERVOUS SYSTEM: Higher functions as mentioned earlier. Diffusely weak. Full exam is not possible. SKIN: No ulcer, rash, bleeding. JOINTS: No active deforming arthropathy. LABS: WBC 11.6, hemoglobin 8.9. Sodium 142, potassium 5.5, creatinine 3.96. ASSESSMENT: 1. Shortness of breath, possible acute left-sided pneumonia with pleural effusion with atelectasis, collapse, with possible severe sepsis and septic shock, present on admission. 2. Chronic obstructive pulmonary disease, acute exacerbation. 3. Change in mental status, acute metabolic encephalopathy, multifactorial. 4. Acute renal failure with acute tubular necrosis with prerenal renal failure, on hemodialysis and ultrafiltration. 5. Hyperkalemia secondary to renal failure. 6. Severe hypotension secondary to sepsis and septic shock. 7. History of recent angiography. 8. Rule out contrast-induced nephropathy. 9. Hyperkalemia. 10.Hypoalbuminemia with mild to moderate protein-calorie malnutrition. 11.Anemia, normocytic; anemia of chronic disease. 12.Thrombocytopenia. 13.History of congestive heart failure with chronic systolic dysfunction, ejection fraction about 20% to 30%, with possibly cardiomyopathy. 14.History of chronic obstructive pulmonary disease. 15.Diabetes mellitus, type 2. 16.Hypertension. 17.Hyperlipidemia. 18.History of myocardial infarction. 19.History rheumatoid arthritis. 20.Left heel osteomyelitis. 21.History of peripheral neuropathy. 22.History of methicillin-resistant Staphylococcus aeruginosa and vancomycin-resistant Enterococcus. 23.History of automated implantable cardioverter defibrillator. 24.History of coronary artery disease, stent. 25.History of cervical fusion, laminectomy, degenerative joint disease. 26.History of postoperative nausea, vomiting. 27.History of automated implantable cardioverter defibrillator. 28.Obesity with body mass index of 44.6. 29.FULL CODE. RECOMMENDATIONS AND DISCUSSION: I recommend to continue current medications, continue with the monitoring, symptomatic treatment. Continue the broad-spectrum IV antibiotics. We will follow the cultures. Cultures are negative so far. The patient also had hemodialysis, as mentioned earlier. Closely monitor. Potassium is improving from 6.6 slightly. I recommend a low-potassium diet. This patient also had a modified barium swallow today with Speech Pathology. Otherwise, overall prognosis is guarded because of the multiple complex medical issues. Further recommendations to follow. MMODL / IJN: [id number] /
[2019-09-03 18:02] LABS: Calcium 8.4 mg/dL (8.4-10.2); Potassium 5.3 mmol/L (3.5-5.1)
[2019-09-03] MEDS: CEFEPIME 1 GM in SODIUM CHLORIDE 0.9% 50 ML IVPB SCH (20:18)
[2019-09-03] MEDS: NOREPINEPHRINE 8 MG in SODIUM CHLORIDE 0.9% 250 ML IV SCH (20:18)
[2019-09-04] MEDS: DEXTROSE 5% IN WATER 1,000 ML with SODIUM BICARB (1 MEQ/ML) 150 ML IV SCH (00:14)
[2019-09-04] MEDS: DAPTOMYCIN IVPB SCH (00:15)
[2019-09-04] MEDS: SODIUM CHLORIDE 0.9% IVPB SCH (00:15)
[2019-09-04 00:25] LABS: Glucose,Whole Blood 195 mg/dL (75-99)
[2019-09-04] MEDS: INSULIN ASPART (NovoLOG) 100 UNIT/ML VIAL SQ SCH ×5 (00:28→21:39)
[2019-09-04] MEDS: IPRATROPIUM-ALBUTEROL 3 ML NEB INHALATION SCH ×4 (03:22→19:39)
[2019-09-04] MEDS: HYDROcodone/APAP 5-325MG 1 EACH TAB PO PRN ×2 (06:14→22:00)
[2019-09-04 06:18] LABS: Albumin 2.8 g/dL (3.5-5.0); Calcium 8.3 mg/dL (8.4-10.2); Potassium 5.6 mmol/L (3.5-5.1); Total Bilirubin 0.7 mg/dL (0.2-1.3); Total Protein 5.9 g/dL (6.3-8.2)
[2019-09-04 06:20] LABS: Anisocytosis Slight; Basophils % (A) 0 %; Eosinophils # (A) 0.3 k/uL (0-0.7); Eosinophils % (A) 2 %; HCT 27.2 % (39.0-53.0); HGB 8.6 gm/dL (13.0-17.5); Hypochromasia Slight; Lymphocytes # (A) 0.6 k/uL (1.0-4.8); Lymphocytes % (A) 5 %; MCHC 31.6 g/dL (31.0-37.0); MCV 94.9 fL (80.0-100.0); Macrocytosis Slight; Monocytes # (A) 0.7 k/uL (0-1.0); Monocytes % (A) 6 %; Neutrophils # (A) 9.7 k/uL (1.3-7.7); Neutrophils % (A) 85 %; RBC 2.87 m/uL (4.30-5.90); RDW 17.6 % (11.5-15.5); WBC 11.4 k/uL (3.8-10.6)
[2019-09-04 06:24] LABS: Platelet Count 131 k/uL (150-450)
--- NOTE | 2019-09-04 06:30 | XR ---
EXAMINATION TYPE: XR chest 1V portable DATE OF EXAM: 09/04/2019 HISTORY: compare. REFERENCE: Previous study dated 09/03/2019. FINDINGS: There has been a previous before meals ACDF of the lower cervical spine. There is unipolar pacemaker place on the left. There is a left basilic PICC line in place. Its tip is at the cavoatrial junction. There is continuing left basilar airspace disease. I suspect a left effusion. Heart size is obscured. IMPRESSION: CONTINUING LEFT BASILAR AIRSPACE DISEASE WITH A CONCOMITANT EFFUSION.
[2019-09-04 06:38] LABS: Glucose,Whole Blood 228 mg/dL (75-99)
[2019-09-04] MEDS: BUDESONIDE 1 MG/2 ML NEBU INHALATION SCH ×2 (08:14→19:39)
[2019-09-04] MEDS: FORMOTEROL FUMARATE 20 MCG/2 ML NEBU INHALATION SCH ×2 (08:14→19:39)
--- NOTE | 2019-09-04 08:30 | PN ---
PROGRESS NOTE Mr. Karlos Mathews is a gentleman with multiple comorbid conditions. He has history of some volume overload type picture and sepsis. He has received some ultrafiltration and they are considering dialysis today. Urine output is scanty and patient is on about 6 - 7 mcg of Levophed. He is maintaining sinus rhythm. Denies any chest discomfort. Vitals are stable on Levophed of about nearly 6-7 mcg. S1, S2 heard normally. There is a short systolic murmur at the base. Lungs revealed diminished air entry. Abdomen is soft. Lower extremities reveal bilateral pigmentation with edema. Central nervous system is grossly within normal limits. I am recommending that we continue his current medical regimen, probable dialysis today. Creatinine is better but still hovering around 4.05 today. Prognosis remains guarded. MMODL / IJN: [id number] /
[2019-09-04] MEDS: SODIUM CHLORIDE 0.9% 1,000 ML IV SCH (09:00)
--- NOTE | 2019-09-04 09:02 | P.PN ---
Subjective Patient is seen in follow-up for acute kidney injury on chronic kidney disease. Creatinine peaked at 4.37 this admission. Also noted to be persistently hyperkalemic. He was dialyzed urgently with improvement of hyperkalemia. Potassium level now 5.6. Acidosis improved. Currently maintained on bicarb drip. Patient also received IV Lasix 80 mg yesterday with no significant response in urine output. He is currently maintained on 8 mics of Levophed. Denies chest pain or shortness of breath. Vital signs are stable. Currently on Levophed. General: The patient appeared well nourished and normally developed. HEENT: Head exam is unremarkable. Neck is without jugular venous distension. LUNGS: Breath sounds decreased. HEART: Rate and Rhythm are regular. First and second heart sounds normal. No murmurs, rubs or gallops. ABDOMEN: Abdominal exam reveals normal bowel sounds. Non-tender. EXTREMITITES: 1+ edema. Objective - Vital Signs Vital signs: Vital Signs Temp 98.4 F 09/04/19 04:00 Pulse 84 09/04/19 08:35 Resp 16 09/04/19 07:00 BP 97/62 09/04/19 07:00 Pulse Ox 96 09/04/19 08:14 Intake & Output 09/03/19 09/04/19 09/04/19 18:59 06:59 18:59 Intake Total 974.934 7391.189 Output Total 100 103 Balance 668.598 3092.189 Weight 133.1 kg Intake: IV 900 975 Dextrose 5% in Water 1, 750 975 000 ml @ 75 mls/hr IV . [id number] [facility] with Sodium Bicarb (1 Meq/ml) 150 ml Rx#:[id number] Sodium Chloride 0.45% 1, 150 000 ml @ 75 mls/hr IV . [id number] [facility] with Sodium Bicarb (1 Meq/ml) 100 ml Rx#:[id number] Intake, IV Titration 17.712 135.189 Amount Norepinephrine 8 mg In 17.712 135.189 Sodium Chloride 0.9% 250 ml @ 0.05 MCG/KG/MIN 14. 043 mls/hr IV .[id number] [facility] Rx#:[id number] Output: Urine 100 103 Other: Voiding Method Indwelling Catheter Indwelling Catheter - Labs CBC & Chem 7: 09/04/19 05:52 09/04/19 05:52 Labs: Abnormal Lab Results - Last 24 Hours (Table) 09/03/19 09/03/19 09/03/19 Range/Units 06:20 16:59 17:22 WBC (3.8-10.6) k/uL RBC (4.30-5.90) m/uL Hgb (13.0-17.5) gm/dL Hct (39.0-53.0) % RDW (11.5-15.5) % Plt Count (150-450) k/uL Neutrophils # (1.3-7.7) k/uL Lymphocytes # (1.0-4.8) k/uL Potassium 5.3 H (3.5-5.1) mmol/L Chloride 108 H (98-107) mmol/L Carbon Dioxide 18 L (22-30) mmol/L BUN 75 H (9-20) mg/dL Creatinine 3.96 H (0.66-1.25) mg/dL Glucose 143 H (74-99) mg/dL POC Glucose (mg/dL) 191 H (75-99) mg/dL Hemoglobin A1c 6.2 H (4.0-6.0) % Calcium (8.4-10.2) mg/dL Total Protein (6.3-8.2) g/dL Albumin (3.5-5.0) g/dL 09/04/19 09/04/19 09/04/19 Range/Units 00:24 05:52 05:52 WBC 11.4 H (3.8-10.6) k/uL RBC 2.87 L (4.30-5.90) m/uL Hgb 8.6 L (13.0-17.5) gm/dL Hct 27.2 L (39.0-53.0) % RDW 17.6 H (11.5-15.5) % Plt Count 131 L D (150-450) k/uL Neutrophils # 9.7 H (1.3-7.7) k/uL Lymphocytes # 0.6 L (1.0-4.8) k/uL Potassium 5.6 H (3.5-5.1) mmol/L Chloride (98-107) mmol/L Carbon Dioxide 21 L (22-30) mmol/L BUN 77 H (9-20) mg/dL Creatinine 4.05 H (0.66-1.25) mg/dL Glucose 175 H (74-99) mg/dL POC Glucose (mg/dL) 195 H (75-99) mg/dL Hemoglobin A1c (4.0-6.0) % Calcium 8.3 L (8.4-10.2) mg/dL Total Protein 5.9 L (6.3-8.2) g/dL Albumin 2.8 L (3.5-5.0) g/dL 09/04/19 Range/Units 06:36 WBC (3.8-10.6) k/uL RBC (4.30-5.90) m/uL Hgb (13.0-17.5) gm/dL Hct (39.0-53.0) % RDW (11.5-15.5) % Plt Count (150-450) k/uL Neutrophils # (1.3-7.7) k/uL Lymphocytes # (1.0-4.8) k/uL Potassium (3.5-5.1) mmol/L Chloride (98-107) mmol/L Carbon Dioxide (22-30) mmol/L BUN (9-20) mg/dL Creatinine (0.66-1.25) mg/dL Glucose (74-99) mg/dL POC Glucose (mg/dL) 228 H (75-99) mg/dL Hemoglobin A1c (4.0-6.0) % Calcium (8.4-10.2) mg/dL Total Protein (6.3-8.2) g/dL Albumin (3.5-5.0) g/dL Microbiology - Last 24 Hours (Table) 09/02/19 15:59 Gram Stain - Preliminary Heel - Left Tissue Culture - Preliminary Gram Neg Bacilli Group D Enterococcus 09/01/19 15:20 Blood Culture - Preliminary Blood No Growth after 48 hours 09/02/19 11:15 Gram Stain - Preliminary Pleural Fluid Body Fluid Culture - Preliminary 09/02/19 11:15 Acid Fast Bacilli Smear - Final Pleural Fluid Acid Fast Bacilli Culture - Preliminary Assessment and Plan Plan: Assessment: 1. Acute kidney injury secondary to ATN secondary to hypotension. Creatinine peaked at 4.37 this admission. Oliguric. Currently hemodialysis dependent. No hydronephrosis noted on kidney ultrasound. 2. Hyperkalemia secondary to acute kidney injury and metabolic acidosis. Improved postdialysis. 3. Metabolic acidosis secondary to acute kidney injury. 4. Volume overload. 5. Pleural effusion status post left-sided thoracentesis with 2.4 L drained. 6. Chronic kidney disease stage III with baseline creatinine in the range of 1.3-1.5. 7. Hypotension maintained on Levophed. 8. Anemia of chronic kidney disease. Iron saturation 21%. Maintained on Aranesp. Plan: Hemodialysis today. Discontinue bicarbonate drip. Start normal saline at 50 mL an hour. Add oral sodium bicarbonate. Continue to monitor renal function and urine output closely. Wean Levophed.
[2019-09-04] MEDS: SODIUM BICARBONATE TAB 650 MG TAB PO SCH ×2 (10:19→21:38)
[2019-09-04] MEDS: LACTOBACILLUS ACIDOPH & BULGAR 1 EACH PACKET PO SCH (10:19)
[2019-09-04] MEDS: HYDROCORTISONE 20 MG TAB PO SCH (10:19)
[2019-09-04] MEDS: CLOPIDOGREL 75 MG TAB PO SCH (10:20)
[2019-09-04] MEDS: ASPIRIN 81 MG PO SCH (10:20)
[2019-09-04] MEDS: FLUTICASONE 50MCG/SPRAY NASAL 16GM EA NOSTRIL SCH ×2 (10:21→21:39)
[2019-09-04] MEDS: PANTOPRAZOLE 40 MG/10 ML VIAL IV SCH (10:21)
[2019-09-04] MEDS: BETAMETHASONE DIPROPIONATE 0.05% CREAM 15 GM TUBE TOPICAL SCH ×2 (10:21→21:39)
[2019-09-04 11:56] LABS: Glucose,Whole Blood 151 mg/dL (75-99)
--- NOTE | 2019-09-04 12:06 | PN ---
PROGRESS NOTE PULMONARY/CRITICAL CARE PROGRESS NOTE: DATE OF SERVICE: 09/04/2019 This is a 74-year-old gentleman who was seen in consultation 2 days ago. He has a history of multiple medical problems including diabetes mellitus, benign essential hypertension, hyperlipidemia, chronic kidney disease, CHF, previous AICD placement, and COPD. The patient presented to the emergency department with low blood pressure and shortness of breath. Two days ago, we did a thoracentesis on the left side. We removed 2300 mL of fluid from the left pleural space. In addition, he did have a left foot debridement performed by Dr. Barth. In addition, hemodialysis catheter was placed. The patient is doing reasonably well. The right upper extremity PICC line is out. The patient is currently going to be treated for adrenal insufficiency with Cortef 20 mg p.o. q.a.m., 10 mg q.p.m. The patient's cortisol level was low. He is on nasal O2 at 3 L. He is getting Levophed at 8 mcg/minute. His saline IV is running at 50 mL an hour. Currently, he is a bit short of breath but feeling a bit better. Current vital signs are reviewed. Temperature is 97.5, heart rate 86, respiratory rate 18, blood pressure 97/52 mean 67 and saturations on 3 L are 94%. Appears in no acute distress. No respiratory distress. No conversational dyspnea or use of accessory muscles. HEENT: Examination is grossly unremarkable. Mucous membranes are dry. Nasal O2 noted. NECK: Supple full range of motion. No adenopathy, thyromegaly or neck vein distention. CARDIOVASCULAR: Examination reveals regular rhythm and rate. Heart rate mid 80s. S1, S2 normal. LUNGS: Reveal a few scattered rhonchi. Breath sounds are diminished at the bases. There are some crackles at the bases. No wheezes. ABDOMEN: Soft, but obese. Bowel sounds are heard. EXTREMITIES: Reveal some chronic venous stasis changes. There is hyperpigmentation. There is some lower extremity edema with pitting. SKIN: Without rash. NEUROLOGIC: Examination is brief but nonfocal. A chest x-ray done on 09/04 shows left basilar airspace disease with some effusion. Microbiologic study show gram-negative bacilli and group D Enterococcus in the left heel. This was a recent debridement done by Dr. Barth. LABORATORY DATA: Includes a white count 11.4, hemoglobin 8.6, hematocrit 27.2, platelet count 131,000. Sodium 138, potassium 5.6, chloride 107, CO2 is 21, anion gap is 10. BUN and creatinine were 77 and 4.05. The rest of the laboratory data is unremarkable. MEDICATIONS: Reviewed. Currently, he is on Tylenol, aspirin, Diprolene cream, Pulmicort, Maxipime, Plavix, daptomycin, Aranesp, Flonase nasal spray, formoterol, Lasix p.r.n., [place], hydrocortisone, insulin, DuoNeb, Lactinex, Narcan, Levophed, Protonix, sodium bicarbonate tablets, saline IV, and Kenalog cream. ASSESSMENT: 1. Shortness of breath, most likely secondary to large left-sided pleural effusion, status post thoracentesis on September 02, with 2.3 L removed. It was sent for evaluation. 2. Rule out urinary tract infection/urosepsis. 3. Osteomyelitis of the left foot with left heel culture showing evidence of group D Enterococcus and gram-negative bacilli. 4. History of diabetes mellitus with diabetic neuropathy. 5. History of benign essential hypertension. 6. Hyperlipidemia by history. 7. Chronic kidney disease, status post hemodialysis/ultrafiltration. 8. History of congestive heart failure. 9. Status post AICD placement. 10.History of ongoing tobacco use. 11.Chronic obstructive pulmonary disease. 12.Rheumatoid arthritis. 13.History of myocardial infarction. 14.Prior history of methicillin-resistant Staphylococcus aureus infection and vancomycin-resistant enterococcal infection. PLAN: The patient is currently being followed by Infectious Diseases. The patient is on appropriate antibiotics. No cultures will be reviewed by the Infectious Disease doctor. The patient is on appropriate medications. Respiratory status is stable. Because of this somewhat low cortisol level, I added Cortef 20 mg in the morning, 10 mg in the evening. Additional recommendations and suggestions are forthcoming. Will see if we cannot wean him off the Levophed. Overall prognosis remains guarded. The PICC line out of the right upper extremity was finally removed yesterday. MMODL / IJN: [id number] /
[2019-09-04] MEDS: NOREPINEPHRINE 8 MG in SODIUM CHLORIDE 0.9% 250 ML IV SCH (12:27)
--- NOTE | 2019-09-04 15:11 | PN ---
PROGRESS NOTE DATE OF SERVICE: 09/04/2019 This is a 74-year-old gentleman who was admitted with multiple complex medical issues including left-sided pneumonia and left-sided pleural effusion, also acute hypoxic respiratory failure and sepsis also. The patient started on broad spectrum IV antibiotics. The wound culture showing gram-negative bacilli and group B Enterococcus at this time. Patient also had a pleural effusion tapped. The patient also had a creatinine elevated at 4.5, indicating acute tubular necrosis with hyperkalemia. The patient is started on hemodialysis. Initially, ultrafiltration was done, about 1 L of fluid was removed today the hemodialysis. The patient also had generalized edema and sensorium is slightly improved. Patient also hypotension was supported by Levophed. Potassium 5.6 today. WBC 11.8, hemoglobin is 8.6, platelets 130. PAST MEDICAL HISTORY: Reviewed. REVIEW OF SYMPTOMS: CARDIOVASCULAR SYSTEM: No angina or palpitations. RESPIRATORY: As mentioned earlier. GI: As mentioned earlier. : No dysuria or retention. NERVOUS SYSTEMS: Weakness. CURRENT MEDICATIONS: Reviewed and include: 1. Tylenol p.r.n. 2. [place] 5 mg q.4 p.r.n. 3. DuoNeb q.i.d. and p.r.n. 4. Aspirin 81 mg p.o. daily. 5. Betamethasone. 6. Pulmicort 1 mg b.i.d. 7. Cefepime 1 g IV daily. 8. Plavix 75 mg p.o. daily. 9. Daptomycin 870 mg p.o. q.48 hours. 11.Flonase p.r.n. 12.Perforomist 20 mg b.i.d. 13.Cortef 10 mg p.o. daily. 14.Cortef 10 mg q.h.s. 15.NovoLog scale. 17.Narcan. 18.Norepinephrine. 19.Protonix. 21.Kenalog. PHYSICAL EXAM: Patient is alert and oriented x3. Pulse is 85, blood pressure 90/40, respiration 19, temperature 97.4, pulse ox 94% on 4 L. HEENT: Conjunctivae normal. Oral mucosa moist. NECK: Obese. CARDIOVASCULAR: S1, S2, muffled. RESPIRATION Breath sounds diminished at the bases, a few scattered rhonchi, no crackles.. ABDOMEN: Soft, obese. LEGS: Bilateral leg edema. NERVOUS SYSTEM: Diffusely weak. LABS: WBC 11.8, hemoglobin is 8.2, sodium 131, sodium 130, potassium 5.2, creatinine is 4.05. Cultures as mentioned earlier. ASSESSMENT: 1. Shortness of breath, possibly acute left-sided pneumonia with pleural effusion with atelectasis collapse and possible severe sepsis, septic shock and hypotension, present on admission. 2. Chronic obstructive pulmonary disease acute exacerbation with acute hypoxic respiratory failure. 3. Change in mental status with acute metabolic encephalopathy, multifactorial. 4. Acute renal failure with acute tubular necrosis with prerenal failure on hemodialysis and ultrafiltration. 5. Hyperkalemia, secondary to renal failure. 6. Severe hypotension, secondary to sepsis and septic shock. 7. History of recent angiography. 8. Possible contrast-induced nephropathy. 9. Hyperkalemia. 10.Hypoalbuminemia with mild to moderate protein calorie malnutrition. 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 12.Thrombocytopenia. 13.History of congestive heart failure with chronic systolic dysfunction, ejection fraction 20%-30% with possible cardiomyopathy. 14.History of chronic obstructive pulmonary disease. 15.Diabetes mellitus type 2. 16.Hypertension. 17.Hyperlipidemia. 18.History of myocardial infarction. 19.History of rheumatoid arthritis. 20.History of left heel osteomyelitis. 21.History of peripheral neuropathy. 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 23.History of AICD. 24.History of coronary artery disease, stent. 25.History of cervical fusion, laminectomy, degenerative joint disease. 26.History of postoperative nausea, vomiting. 27.History AICD. 28.Obesity with body mass index of 44.6. 29.FULL CODE. RECOMMENDATION: Recommend to continue current medications, continue with the monitoring and symptomatic treatment. Otherwise, at this time I would recommend continue with antibiotics, bronchodilators, hemodialysis, otherwise the serum cortisol was 18, empiric steroids and guarded prognosis. Further recommendations to follow. Otherwise, the rest of the cultures are negative. MMODL / IJN: [id number] / [facility]
[2019-09-04] MEDS: MORPHINE SULFATE 2 MG/ML SYRINGE IVP PRN (18:15)
[2019-09-04 18:27] LABS: Glucose,Whole Blood 125 mg/dL (75-99)
[2019-09-04 21:27] LABS: Glucose,Whole Blood 149 mg/dL (75-99)
[2019-09-04] MEDS: HYDROCORTISONE 10 MG TAB PO SCH (21:38)
[2019-09-04] MEDS: CEFEPIME 1 GM in SODIUM CHLORIDE 0.9% 50 ML IVPB SCH (21:41)
--- NOTE | 2019-09-05 01:40 | PN ---
PROGRESS NOTE DATE OF SERVICE: 09/04/2019 REASON FOR FOLLOWUP: Left heel infected pressure ulcer. INTERVAL HISTORY: The patient is currently afebrile. The patient has been breathing comfortably, feeling slightly better. Denies having any chest pain. No shortness with no cough. No nausea, vomiting, abdominal pain, or any worsening pain to the left heel area. PHYSICAL EXAMINATION: Blood pressure is 106/56, pulse of 84, temperature 98, he is 94% on room air. General description is an elderly male lying in bed in no distress. Respiratory system: Unlabored breathing. Decreased breath sounds at the bases. No wheeze. Heart S1, S2. Regular rate and rhythm. Abdomen soft, no tenderness. Left knee is currently dressed up. Minimal drainage on the dressing. LABS: Hemoglobin 8.6, white count 11.4, BUN of 77, creatinine 4.05. Local wound culture showing a VRE and Gram-negative bacilli. DIAGNOSTIC IMPRESSION AND PLAN: Patient with left infected pressure ulcer. Cultures with VRE and gram-negative. Patient is currently covered with daptomycin and cefepime. To continue local care with the ( ). Keep the area off the pressure and continue supportive care. MMODL / IJN: [id number] /
[2019-09-05] MEDS: IPRATROPIUM-ALBUTEROL 3 ML NEB INHALATION SCH ×4 (01:46→20:19)
[2019-09-05] MEDS: SODIUM CHLORIDE 0.9% 1,000 ML IV SCH (02:14)
[2019-09-05 04:21] LABS: Anisocytosis Slight; Basophils % (A) 0 %; Eosinophils % (A) 1 %; HGB 7.6 gm/dL (13.0-17.5); Hypochromasia Moderate; Lymphocytes # (A) 0.7 k/uL (1.0-4.8); Lymphocytes % (A) 10 %; MCH 30.4 pg (25.0-35.0); MCHC 31.6 g/dL (31.0-37.0); MCV 96.1 fL (80.0-100.0); Macrocytosis Slight; Mean Platelet Volume 9.5; Monocytes # (A) 0.4 k/uL (0-1.0); Monocytes % (A) 6 %; Neutrophils % (A) 82 %; RBC 2.49 m/uL (4.30-5.90); RDW 17.6 % (11.5-15.5); WBC 7.3 k/uL (3.8-10.6)
[2019-09-05 04:47] LABS: Calcium 8.3 mg/dL (8.4-10.2); Potassium 4.7 mmol/L (3.5-5.1)
[2019-09-05 05:00] LABS: Platelet Count 75 k/uL (150-450)
--- NOTE | 2019-09-05 05:55 | XR ---
EXAMINATION TYPE: XR chest 1V portable DATE OF EXAM: 09/05/2019 HISTORY: compare. REFERENCE: Previous study dated 09/04/2019. FINDINGS: There has been a previous ACDF in the lower cervical spine. There is a bipolar pacemaker pl evangelista on the left. There is continuing, bilateral airspace disease which is worsened slightly particularly on the left. There is a left-sided effusion. Heart size is obscured. IMPRESSION: WORSENING BILATERAL AIRSPACE DISEASE WHICH MAY REPRESENT CONFLUENT EDEMA OR PNEUMONIA.
[2019-09-05 06:48] LABS: Glucose,Whole Blood 124 mg/dL (75-99)
[2019-09-05] MEDS: NOREPINEPHRINE 8 MG in SODIUM CHLORIDE 0.9% 250 ML IV SCH ×2 (06:49→22:57)
[2019-09-05] MEDS: INSULIN ASPART (NovoLOG) 100 UNIT/ML VIAL SQ SCH ×4 (06:50→20:29)
[2019-09-05] MEDS: HYDROcodone/APAP 5-325MG 1 EACH TAB PO PRN (06:51)
[2019-09-05] MEDS: BUDESONIDE 1 MG/2 ML NEBU INHALATION SCH ×2 (07:17→20:19)
[2019-09-05] MEDS: FORMOTEROL FUMARATE 20 MCG/2 ML NEBU INHALATION SCH ×2 (07:17→20:19)
--- NOTE | 2019-09-05 08:56 | PN ---
PROGRESS NOTE This gentleman has history of sepsis, volume overload, had dialysis yesterday. He is more comfortable today. Vital signs stable. S1-S2 heard normally. Short systolic murmur noted. Lungs reveal diminished air entry. Abdomen and lower extremity exam unchanged. Plan is to continue current medical regimen. Prognosis remains guarded. MMODL / IJN: [id number] /
--- NOTE | 2019-09-05 09:17 | P.PN ---
Subjective Patient is seen in follow-up for acute kidney injury on chronic kidney disease. Creatinine peaked at 4.37 this admission. Also noted to be persistently hyperkalemic. He was dialyzed urgently with improvement of hyperkalemia. Potassium level now 4.7. Acidosis improved. Currently maintained on normal saline. Urine output about 20-25 mL an hour. Still on Levophed but lower dose. Denies chest pain or shortness of breath. Vital signs are stable. Currently on Levophed. General: The patient appeared well nourished and normally developed. HEENT: Head exam is unremarkable. Neck is without jugular venous distension. LUNGS: Breath sounds decreased. HEART: Rate and Rhythm are regular. First and second heart sounds normal. No murmurs, rubs or gallops. ABDOMEN: Abdominal exam reveals normal bowel sounds. Non-tender. EXTREMITITES: 1+ edema. Objective - Vital Signs Vital signs: Vital Signs Temp 97.9 F 09/05/19 04:00 Pulse 94 09/05/19 07:27 Resp 15 09/05/19 07:00 BP 98/59 09/05/19 07:00 Pulse Ox 96 09/05/19 07:00 Intake & Output 09/04/19 09/05/19 09/05/19 18:59 06:59 18:59 Intake Total 997.811 948.000 68.912 Output Total 1498 270 25 Balance -500.189 678.000 43.912 Weight 133.1 kg 135.5 kg Intake: IV 575 690 50 Cefepime 1 gm In Sodium 50 Chloride 0.9% 50 ml @ 100 mls/hr IVPB Q24H [facility] Rx# :[id number] Dextrose 5% in Water 1, 75 000 ml @ 75 mls/hr IV . [id number] [facility] with Sodium Bicarb (1 Meq/ml) 150 ml Rx#:[id number] Sodium Chloride 0.9% 1, 500 640 50 000 ml @ 50 mls/hr IV . Q20H [facility] Rx#:[id number] Intake, IV Titration 122.811 258.000 18.912 Amount Norepinephrine 8 mg In 122.811 258.000 18.912 Sodium Chloride 0.9% 250 ml @ 0.05 MCG/KG/MIN 14. 043 mls/hr IV .[id number] [facility] Rx#:[id number] Hemodialysis 300 Output: Urine 198 270 25 Hemodialysis 1300 Other: Voiding Method Indwelling Catheter Indwelling Catheter - Labs CBC & Chem 7: 09/05/19 03:55 09/05/19 03:55 Labs: Abnormal Lab Results - Last 24 Hours (Table) 09/04/19 09/04/19 09/04/19 Range/Units 11:55 18:25 21:25 RBC (4.30-5.90) m/uL Hgb (13.0-17.5) gm/dL Hct (39.0-53.0) % RDW (11.5-15.5) % Plt Count (150-450) k/uL Lymphocytes # (1.0-4.8) k/uL BUN (9-20) mg/dL Creatinine (0.66-1.25) mg/dL Glucose (74-99) mg/dL POC Glucose (mg/dL) 151 H 125 H 149 H (75-99) mg/dL Calcium (8.4-10.2) mg/dL 09/05/19 09/05/19 09/05/19 Range/Units 03:55 03:55 06:46 RBC 2.49 L (4.30-5.90) m/uL Hgb 7.6 L (13.0-17.5) gm/dL Hct 24.0 L (39.0-53.0) % RDW 17.6 H (11.5-15.5) % Plt Count 75 L (150-450) k/uL Lymphocytes # 0.7 L (1.0-4.8) k/uL BUN 64 H (9-20) mg/dL Creatinine 3.41 H (0.66-1.25) mg/dL Glucose 116 H (74-99) mg/dL POC Glucose (mg/dL) 124 H (75-99) mg/dL Calcium 8.3 L (8.4-10.2) mg/dL Microbiology - Last 24 Hours (Table) 09/01/19 15:20 Blood Culture - Preliminary Blood No Growth after 72 hours 09/02/19 15:59 Gram Stain - Preliminary Heel - Left Tissue Culture - Preliminary Gram Neg Bacilli Enterococcus faecium VRE Yeast species 09/02/19 11:15 Gram Stain - Preliminary Pleural Fluid Body Fluid Culture - Preliminary 09/03/19 22:00 Catheter Tip Culture - Preliminary Picc Line Assessment and Plan Plan: Assessment: 1. Acute kidney injury secondary to ATN secondary to hypotension. Creatinine peaked at 4.37 this admission. Oliguric. Currently hemodialysis dependent. No hydronephrosis noted on kidney ultrasound. 2. Hyperkalemia secondary to acute kidney injury and metabolic acidosis. Improved postdialysis. 3. Metabolic acidosis secondary to acute kidney injury. Improved. Maintained on oral sodium bicarbonate. 4. Volume overload. 5. Pleural effusion status post left-sided thoracentesis with 2.4 L drained. 6. Chronic kidney disease stage III with baseline creatinine in the range of 1.3-1.5. 7. Hypotension maintained on Levophed. 8. Anemia of chronic kidney disease. Iron saturation 21%. Maintained on Aranesp. Plan: Lasix 80 mg IV once today. Hep-Lock IV fluids. Continue to monitor renal function and urine output closely. Wean Levophed. Continue to assess on daily basis for need for renal replacement therapy.
[2019-09-05] MEDS: LACTOBACILLUS ACIDOPH & BULGAR 1 EACH PACKET PO SCH (09:34)
[2019-09-05] MEDS: SODIUM BICARBONATE TAB 650 MG TAB PO SCH ×2 (09:34→21:18)
[2019-09-05] MEDS: CLOPIDOGREL 75 MG TAB PO SCH (09:34)
[2019-09-05] MEDS: PANTOPRAZOLE 40 MG/10 ML VIAL IV SCH (09:34)
[2019-09-05] MEDS: FUROSEMIDE 10 MG/ML 10 ML VIAL IV SCH (09:35)
[2019-09-05] MEDS: BETAMETHASONE DIPROPIONATE 0.05% CREAM 15 GM TUBE TOPICAL SCH ×2 (09:35→20:42)
[2019-09-05] MEDS: ASPIRIN 81 MG PO SCH (09:35)
[2019-09-05] MEDS: FLUTICASONE 50MCG/SPRAY NASAL 16GM EA NOSTRIL SCH ×2 (09:35→21:18)
[2019-09-05] MEDS: HYDROCORTISONE 20 MG TAB PO SCH (09:36)
--- NOTE | 2019-09-05 11:02 | PN ---
PROGRESS NOTE DATE OF SERVICE: September 05, 2019 74-year-old gentleman who was initially seen in consultation 3 days ago. He was admitted to the hospital on September 01. He has multiple medical problems including diabetes mellitus, benign essential hypertension, hyperlipidemia, chronic kidney disease, heart failure, previous AICD placement, and COPD. When he presented to the emergency department, his issues included low blood pressure and shortness of breath. He was found to have a large left-sided effusion. We did a thoracentesis a couple days ago. 2300 mL was removed from the left pleural space. He also had a left foot debridement performed by Dr. Barth. In addition, hemodialysis catheter was placed. He had hemodialysis yesterday and 1 L was removed. He had a right upper extremity PICC line that had been in there for 6 months. That was removed. In addition, he may have relative adrenal insufficiency. He was started on Cortef 20 mg q.a.m. and 10 mg q.p.m. His cortisol level was low. He is currently still on norepinephrine at 7 mcg/minutes 0.9 at KVO and 3 L nasal cannula. He looks pretty good. Feels like he is getting better. I did have the nurse to turn off the norepinephrine. I am going to see what happens when he is off the norepinephrine. His blood pressure apparently runs low to begin with. PHYSICAL EXAMINATION: VITAL SIGNS: Currently, vital signs are reviewed. Temperature is 98.7 heart rate 83, respiratory rate 16, blood pressure 93/54 mean 67 and saturations are 96%. GENERAL: Appears in no acute distress. HEENT: Examination is grossly unremarkable. Mucous membranes are moist. Nasal prongs noted. NECK: Supple. Full range of motion. No adenopathy, thyromegaly or neck vein distention. CARDIOVASCULAR: Examination reveals regular rhythm and rate. Heart rate about 83 beats per minute. S1, S2 normal. Heart sounds are distant. LUNGS: Reveal mostly clear. A few scattered rhonchi. No wheezes or crackles. ABDOMEN: Soft. Bowel sounds are heard. Abdomen obese. EXTREMITIES are wrapped. There is some chronic venous stasis changes and edema noted. SKIN: Without rash. NEUROLOGIC: Examination is brief but nonfocal. Culture of the left heel wound shows Enterococcus faecium which is vancomycin-resistant Enterococcus. The rest of his culture data is negative. Labs are reviewed. White count 7.3, hemoglobin 7.6, hematocrit 24, platelet count 75,000. Sodium, potassium normal. Chloride normal. CO2 24. Anion gap 8. BUN and creatinine were 64 and 3.41. A chest x-ray done today shows some bilateral airspace disease, which likely represents either pleural effusion, atelectasis and/or infiltrate/pneumonia. Again, he had a large left effusion initially and that was drained. 2300 mL was removed from the left side. The fluid analysis shows it to be a transudate. LDH was only 69. Total protein in the fluid was 1.39 g. MEDICATIONS: Reviewed. He is currently on Tylenol, aspirin, Diprolene cream, Pulmicort, Maxipime, Plavix, daptomycin, Aranesp, Flonase nasal spray, formoterol, Lasix, [place], hydrocortisone a.m. and p.m., NovoLog, DuoNeb, Lactinex, Narcan, norepinephrine, Protonix, sodium bicarbonate tablets, and a basic KVO IV. ASSESSMENT: 1. Shortness of breath, improved, likely secondary to a large left-sided pleural effusion, status post thoracentesis on September 02, with 2.3 L removed. It was a transudate. 2. Rule out urinary tract infection/urosepsis. 3. Osteomyelitis of the left heel culture showing evidence of Enterococcus faecium (VRE). 4. History of diabetes mellitus with diabetic neuropathy. 5. History of benign essential hypertension. 6. Hyperlipidemia by history. 7. Chronic kidney disease, status post hemodialysis/ultrafiltration. 8. History of congestive heart failure. 9. Status post AICD placement. 10.History of ongoing tobacco use. 11.Chronic obstructive pulmonary disease. 12.Rheumatoid arthritis. 13.History of myocardial infarction. 14.Prior history of methicillin-resistant Staph aureus infection and vancomycin- resistant enterococcal infection. PLAN: The patient seems to be doing better. I have asked the nurse to turn off the norepinephrine. We may be treating more of the number rather than the patient. The hemodialysis took place yesterday and 1 L was removed. The left heel culture shows evidence of vancomycin-resistant enterococci. He is on cefepime and daptomycin. Additional recommendations and suggestions are forthcoming. The right-sided PICC line was removed. He is on Cortef for suspected adrenal insufficiency. Additional recommendations and suggestions are forthcoming. MMODL / IJN: [id number] /
[2019-09-05 11:52] LABS: Glucose,Whole Blood 115 mg/dL (75-99)
[2019-09-05] MEDS ORDERED: ONDANSETRON 4 MG/2 ML VIAL IVP PRN (12:07)
[2019-09-05] MEDS: MIDODRINE 5 MG TAB PO SCH ×2 (12:43→17:22)
--- NOTE | 2019-09-05 13:29 | PN ---
PROGRESS NOTE DATE OF SERVICE: 09/05/2019. REASON FOR FOLLOWUP: 1. Left heel infected pressure ulcer. 2. Possible pneumonia. INTERVAL HISTORY: The patient is currently afebrile. The patient's blood pressure is marginal. He was feeling some shortness of breath after he was sitting up in the chair for therapy, but denies having chest pain. He did have a cough and bringing up some yellow sputum. No hemoptysis. No nausea. No vomiting. No abdominal pain. No diarrhea. PHYSICAL EXAMINATION: Blood pressure 177/61 with a pulse of 75, temperature of 97.6, he is 94% on 3 liters nasal cannula. General description is an elderly male lying in bed in no distress. RESPIRATORY SYSTEM: Unlabored breathing. Decreased breath sounds at the bases. No wheeze. HEART: S1, S2. Regular rate and rhythm. ABDOMEN: Soft. No tenderness. Left leg is currently dressed up. No obvious drainage on the dressing. LABS: White count is 7.6, white count 7.3. Creatinine is 3.41. Wound culture is with gram- negative Enterococcus VRE. Catheter tip so far negative. Blood culture was negative. Pleural fluid culture so far negative. DIAGNOSTIC IMPRESSION AND PLAN: 1. Patient with left heel infected pressure ulcer. Cultures with VRE, gram negative. Patient is covered with daptomycin and cefepime. 2. Patient did have respiratory symptom, cough with yellow sputum. We will obtain sputum for Gram stain and culture and follow the results. Continue supportive care. MMODL / IJN: [id number] /
[2019-09-05 17:20] LABS: Glucose,Whole Blood 109 mg/dL (75-99)
[2019-09-05] MEDS ORDERED: IPRATROPIUM-ALBUTEROL 3 ML NEB INHALATION PRN (20:22)
[2019-09-05 20:29] LABS: Glucose,Whole Blood 125 mg/dL (75-99)
[2019-09-05] MEDS: HYDROCORTISONE 10 MG TAB PO SCH (21:19)
[2019-09-05] MEDS: CEFEPIME 1 GM in SODIUM CHLORIDE 0.9% 50 ML IVPB SCH (21:19)
--- NOTE | 2019-09-05 21:37 | PN ---
PROGRESS NOTE DATE OF SERVICE: 09/05/2019 This 74-year-old gentleman who was admitted with shortness of breath, possibly acute left-sided pneumonia with pleural effusion with atelectasis and collapse had thoracocentesis. The patient has features of severe sepsis. Patient continues to be hypotensive. Patient is being closely monitored. Dr. De La Paz is following the patient closely. The patient also had infected left heel pressure ulcer. The patient is continuing to undergo hemodialysis. PAST MEDICAL HISTORY: Reviewed. REVIEW OF SYSTEMS: CARDIOVASCULAR SYSTEM: No angina. RESPIRATORY: As mentioned earlier. GI: As mentioned earlier. : No dysuria. NERVOUS SYSTEM: No numbness or weakness. Cultures show gram-negative bacilli and VRE and as well as yeast. CURRENT MEDICATIONS: 1. Tylenol p.r.n. 2. [place] 5 mg p.r.n. 3. DuoNeb q.i.d. and p.r.n. 4. Aspirin. 5. Pulmicort. 6. Cefepime 1 g IV daily. 7. Plavix. 8. Daptomycin. 9. Ancef. 10.Flonase. 11.Perforomist. 12.Lasix. 13.Cortef. 14.NovoLog. 15.Lactinex. 16.ProAmatine. 17.Narcan. 18.Protonix. 19.Kenalog. PHYSICAL EXAMINATION: Patient and oriented x3. Pulse 83, blood pressure 89/50, respiration 17, temperature normal, pulse ox 94% on room air. HEENT: Conjunctivae normal. Oral mucosa moist. NECK: No jugular venous distention. No lymph node enlargement. CARDIOVASCULAR: S1, S2. RESPIRATORY: Diminished breath sounds at the bases. Bilateral scattered rhonchi and crackles. ABDOMEN: Soft, obese, nontender. LEGS: Nonhealing foot ulcer present. NERVOUS SYSTEM: No focal deficits. LABS: WBC 7.2, hemoglobin 7.6, sodium 130, potassium 4.7, creatinine 3.41. ASSESSMENT: 1. Shortness of breath, possibly left-sided pneumonia, possibly gram-negative with pleural effusion with atelectasis, collapse and possible severe sepsis, septic shock and hypotension, present on admission. 2. Chronic obstructive pulmonary disease acute exacerbation with acute hypoxic respiratory failure. 3. Change in mental status with acute metabolic encephalopathy, multifactorial. 4. Acute renal failure with acute tubular necrosis with prerenal failure on hemodialysis and ultrafiltration. 5. Hyperkalemia secondary to renal failure. 6. Severe hypotension secondary to sepsis, septic shock. 7. History of recent angiography, peripheral, leg. 8. Possible contrast induced nephropathy. 9. Hyperkalemia. 10.Hypoalbuminemia with mild to moderate protein calorie malnutrition. 11.Possible anemia of chronic disease. 12.Thrombocytopenia. 13.History of congestive heart failure with chronic systolic dysfunction, ejection fraction 20-30%, possible cardiomyopathy. 14.History of chronic obstructive pulmonary disease. 15.Diabetes mellitus type 2. 16.Hypertension. 17.Hyperlipidemia. 18.History of myocardial infarction. 19.History of rheumatoid arthritis. 20.Left heel osteomyelitis. 21.History of peripheral neuropathy. 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 23.History of AICD. 24.History of coronary artery disease, stent. 25.Cervical fusion, laminectomy, degenerative joint disease. 26.History of postoperative nausea, vomiting. 27.History of obesity with body mass index of 44.6. 28.FULL CODE. RECOMMENDATIONS AND DISCUSSION: I recommend to continue current medications, continue to monitor, continue symptomatic treatment. Otherwise, continue the hemodialysis. Continue with empiric antibiotics. Cultures noted as before. Closely follow with multiple consultants. Monitor blood pressure closely. Guarded prognosis because of multiple complex medical issues. Further recommendations to follow. MMODL / IJN: [id number] /
[2019-09-05] MEDS: DAPTOMYCIN IVPB SCH (22:56)
[2019-09-05] MEDS: SODIUM CHLORIDE 0.9% IVPB SCH (22:56)
[2019-09-06] MEDS: SODIUM CHLORIDE 0.9% 1,000 ML IV SCH (04:07)
[2019-09-06] MEDS: HYDROcodone/APAP 5-325MG 1 EACH TAB PO PRN (04:49)
[2019-09-06 05:32] LABS: Calcium 8.8 mg/dL (8.4-10.2)
[2019-09-06 05:48] LABS: Anisocytosis Slight; HCT 25.4 % (39.0-53.0); Hypochromasia Slight; MCH 30.1 pg (25.0-35.0); MCHC 31.5 g/dL (31.0-37.0); MCV 95.5 fL (80.0-100.0); Macrocytosis Slight; Mean Platelet Volume 10.1; Platelet Count 71 k/uL (150-450); RBC 2.66 m/uL (4.30-5.90); RDW 17.6 % (11.5-15.5); WBC 8.6 k/uL (3.8-10.6)
[2019-09-06 06:41] LABS: Glucose,Whole Blood 101 mg/dL (75-99)
[2019-09-06] MEDS: INSULIN ASPART (NovoLOG) 100 UNIT/ML VIAL SQ SCH ×4 (06:41→20:24)
[2019-09-06] MEDS: BUDESONIDE 1 MG/2 ML NEBU INHALATION SCH ×2 (07:16→21:42)
[2019-09-06] MEDS: IPRATROPIUM-ALBUTEROL 3 ML NEB INHALATION SCH ×3 (07:16→21:43)
[2019-09-06] MEDS: FORMOTEROL FUMARATE 20 MCG/2 ML NEBU INHALATION SCH ×2 (07:16→21:43)
--- NOTE | 2019-09-06 07:46 | XR ---
EXAMINATION TYPE: XR chest 1V portable DATE OF EXAM: 09/06/2019 COMPARISON: 09/05/2019 HISTORY: Shortness of breath FINDINGS: There are bilateral pleural effusions with cardiomegaly and bibasilar infiltrate. There is a diffuse interstitial pattern. There is progressive consolidation with near complete opacification of the lef t. Multiple cardiac leads are noted. Suggestion of a left-sided PICC line. Postsurgical change overly ing the cervical spine. Linear calcification in the right lung may be pleural related to pleural calc ification IMPRESSION: 1. Progression of disease and today's exam with near complete opacification left hemithorax. Findings on the right are stable. Correlate for increasing pleural fluid, mucous plug, or increasing consolid ative process such as pneumonia. CHF with pulmonary edema in the differential diagnosis.
--- NOTE | 2019-09-06 08:01 | IR ---
EXAMINATION TYPE: IR cvc insert >=5 years DATE OF EXAM: 09/06/2019 COMPARISON: NONE HISTORY: Each long-term intravenous access for antibiotics and total parenteral nutrition FINDINGS: Maximal barrier technique was utilized. Hand hygiene obtained with soap and water and alco hol-based hand rub. The skin overlying the left basilic vein was localized with ultrasound and noted to be compressible and patent by ultrasound. An ultrasound image was obtained [facility] Sterile technique utilized with the ultrasound machine. The skin overlying was prepped an d draped and Lidocaine used for local anesthesia. A skin [place] was made with a scalpel. Access was g ained to the vein under direct ultrasound guidance with a 21-gauge needle and a 0.018 inch wire was a dvanced. Access site was dilated with a peel-away sheath and the catheter tailored to length. Cherry ter advanced centrally and a post procedure chest x-ray verified placement with the tip initially coi led but subsequently repositioned such that the tip is at the superior vena cava. Catheter was fixed to the skin and a sterile dressing placed. Hemostasis achieved and the catheter was aspirated and f lushed with sterile saline. The patient remained in stable condition. IMPRESSION: STATUS POST ULTRASOUND GUIDED PICC LINE PLACEMENT, READY FOR USE. THIS PROCEDURE WAS PER FORMED BY THE UNDERSIGNED.
--- NOTE | 2019-09-06 08:08 | P.PN ---
Subjective Progress Note Date: 09/06/19 Principal diagnosis: Coronary artery disease/recurrent pleural effusion This is a 74-year-old gentleman with history of coronary artery disease, chronic systolic congestive heart failure, diabetes, hypertension, dyslipidemia, and chronic kidney disease, was admitted to the hospital with increasing shortness of breath. He was found to have large left-sided pleural effusion and he underwent pleurocentesis. He was seen this morning. He stated that he is feeling better indeterminable shortness of breath but the chest x-ray showed complete opacification of the left lung. He possibly need to have another left-sided pleurocentesis. Otherwise he is hemodynamically stable. He is on Lasix IV at this point which has been managed by the nephrology team. Objective - Vital Signs Vital signs: Vital Signs Temp 97.2 F L 09/06/19 04:00 Pulse 77 09/06/19 07:42 Resp 14 09/06/19 07:00 BP 98/55 09/06/19 07:00 Pulse Ox 94 L 09/06/19 07:00 Intake & Output 09/05/19 09/06/19 09/06/19 18:59 06:59 18:59 Intake Total 673.674 441.709 20 Output Total 166 185 20 Balance 507.674 256.709 0 Weight 135.3 kg Intake: IV 270 290 20 Cefepime 1 gm In Sodium 50 Chloride 0.9% 50 ml @ 100 mls/hr IVPB Q24H [facility] Rx# :[id number] Sodium Chloride 0.9% 1, 270 240 20 000 ml @ 20 mls/hr IV . Q24H [facility] Rx#:[id number] Intake, IV Titration 43.674 91.709 Amount DAPTOmycin 870 mg In 50 Sodium Chloride 0.9% 50 ml @ 100 mls/hr IVPB Q48H [facility] Rx#:[id number] Norepinephrine 8 mg In 43.674 41.709 Sodium Chloride 0.9% 250 ml @ 0.05 MCG/KG/MIN 14. 043 mls/hr IV .[id number] [facility] Rx#:[id number] Oral 360 60 Output: Urine 166 185 20 Other: Voiding Method Indwelling Catheter Indwelling Catheter - Constitutional General appearance: Present: no acute distress - Respiratory Respiratory: left: diminished - Cardiovascular Heart sounds: normal: S1, S2 - Labs CBC & Chem 7: 02/17/20 04:49 09/06/19 04:49 Labs: Abnormal Lab Results - Last 24 Hours (Table) 09/05/19 09/05/19 09/05/19 Range/Units 11:50 17:17 20:28 RBC (4.30-5.90) m/uL Hgb (13.0-17.5) gm/dL Hct (39.0-53.0) % RDW (11.5-15.5) % Plt Count (150-450) k/uL BUN (9-20) mg/dL Creatinine (0.66-1.25) mg/dL POC Glucose (mg/dL) 115 H 109 H 125 H (75-99) mg/dL 09/06/19 09/06/19 09/06/19 Range/Units 04:49 04:49 06:40 RBC 2.66 L (4.30-5.90) m/uL Hgb 8.0 L (13.0-17.5) gm/dL Hct 25.4 L (39.0-53.0) % RDW 17.6 H (11.5-15.5) % Plt Count 71 L (150-450) k/uL BUN 70 H (9-20) mg/dL Creatinine 3.61 H (0.66-1.25) mg/dL POC Glucose (mg/dL) 101 H (75-99) mg/dL Microbiology - Last 24 Hours (Table) 09/05/19 12:30 Gram Stain - Preliminary Sputum Sputum Culture - Preliminary 09/01/19 15:20 Blood Culture - Preliminary Blood No Growth after 96 hours 09/03/19 22:00 Catheter Tip Culture - Preliminary Picc Line 09/02/19 11:15 Gram Stain - Preliminary Pleural Fluid Body Fluid Culture - Preliminary Assessment and Plan Assessment: Assessment Coronary artery disease and prior revascularization Chronic systolic congestive heart failure Recurrent left pleural effusion Multiple comorbid conditions Chronic kidney disease Plan Continue the Lasix IV which has been managed by the nephrology team He possibly need to undergo another left pleurocentesis Intensive care team on the case Follow-up with the patient
[2019-09-06] MEDS: SODIUM BICARBONATE TAB 650 MG TAB PO SCH ×2 (08:19→21:17)
[2019-09-06] MEDS: MIDODRINE 5 MG TAB PO SCH ×3 (08:19→17:22)
[2019-09-06] MEDS: LACTOBACILLUS ACIDOPH & BULGAR 1 EACH PACKET PO SCH (08:19)
[2019-09-06] MEDS: FUROSEMIDE 10 MG/ML 10 ML VIAL IV SCH (08:19)
[2019-09-06] MEDS: BETAMETHASONE DIPROPIONATE 0.05% CREAM 15 GM TUBE TOPICAL SCH ×2 (08:20→21:15)
[2019-09-06] MEDS: FLUTICASONE 50MCG/SPRAY NASAL 16GM EA NOSTRIL SCH ×2 (08:20→21:16)
[2019-09-06] MEDS: PANTOPRAZOLE 40 MG/10 ML VIAL IV SCH (08:20)
[2019-09-06] MEDS: HYDROCORTISONE 20 MG TAB PO SCH (08:20)
[2019-09-06] MEDS: ASPIRIN 81 MG PO SCH (08:21)
[2019-09-06] MEDS: CLOPIDOGREL 75 MG TAB PO SCH (08:21)
--- NOTE | 2019-09-06 09:55 | P.PN ---
<Gia Gonzalez M - Last Filed: 09/06/19 09:55> Subjective Progress Note Date: 09/06/19 Principal diagnosis: Dyspnea, sepsis, acute exacerbation of systolic CHF On 09/06/2019 patient seen in follow-up in the intensive care unit, she is awake and alert, is currently on 3 L of oxygen the pulse ox of 94%, she denies any worsening dyspnea, although today's chest x-ray shows bilateral pleural e ffusions with cardiomegaly and bibasilar infiltrates. Near complete opacification of the left hemothorax. Patient continues on Lasix, he received 80 mg of Lasix this morning, he remained oliguric, only producing 10-15 ML per hour. His last hemodialysis treatment was on Friday to 2019 would removal of 1.3 L of fluid. Patient is scheduled for another hemodialysis treatment this morning. Patient remains on small amount of levo fed currently at 4 mics per minutes. Maintenance IV fluids of 0.9 normal saline at a rate of 20 ML per hour, continues on empiric antibiotics including cefepime and daptomycin. He has been afebrile. Urine, blood, pleural fluid cultures have been negative thus far, sputum culture is pending, has shown no growth so far, his PICC line catheter tip culture is pending, negative thus far. His left heel wound culture showed gram-negative bacilli, vancomycin-resistant enterococcus, and yeast species. ID service is following In sinus mechanism. Patient is awake and alert, oriented 3, answering questions appropriately, no signs of confusion. Today's labs have been reviewed, showing white blood cell count of 8.6, hemoglobin of 8.0, electrolytes are within normal limits, BUN is 70 creatinine is 3.61 Objective - Vital Signs Vital signs: Vital Signs Temp 97.2 F L 09/06/19 04:00 Pulse 77 09/06/19 07:42 Resp 14 09/06/19 07:00 BP 98/55 09/06/19 07:00 Pulse Ox 94 L 09/06/19 07:00 Intake & Output 09/05/19 09/06/19 09/06/19 18:59 06:59 18:59 Intake Total 673.674 441.709 20 Output Total 166 185 20 Balance 507.674 256.709 0 Weight 135.3 kg Intake: IV 270 290 20 Cefepime 1 gm In Sodium 50 Chloride 0.9% 50 ml @ 100 mls/hr IVPB Q24H [facility] Rx# :[id number] Sodium Chloride 0.9% 1, 270 240 20 000 ml @ 20 mls/hr IV . Q24H [facility] Rx#:[id number] Intake, IV Titration 43.674 91.709 Amount DAPTOmycin 870 mg In 50 Sodium Chloride 0.9% 50 ml @ 100 mls/hr IVPB Q48H [facility] Rx#:[id number] Norepinephrine 8 mg In 43.674 41.709 Sodium Chloride 0.9% 250 ml @ 0.05 MCG/KG/MIN 14. 043 mls/hr IV .[id number] [facility] Rx#:[id number] Oral 360 60 Output: Urine 166 185 20 Other: Voiding Method Indwelling Catheter Indwelling Catheter - Exam GENERAL EXAM: Alert, very pleasant, 74-year-old obese white male, on 3 L of oxygen the pulse ox of 94%, comfortable in no apparent distress. HEAD: Normocephalic/atraumatic. EYES: Normal reaction of pupils, equal size. Conjunctiva pink, sclera white. NOSE: Clear with pink turbinates. THROAT: No erythema or exudates. NECK: No masses, no JVD, no thyroid enlargement, no adenopathy. CHEST: No chest wall deformity. Symmetrical expansion. LUNGS: Diminished breath sounds over left lower and left mid lung, crackles at the right base, no rhonchi, no wheezing CVS: Regular rate and rhythm, normal S1 and S2, no gallops, no murmurs, no rubs ABDOMEN: Soft, nontender. No hepatosplenomegaly, normal bowel sounds, no guarding or rigidity. EXTREMITIES: No clubbing, generalized edema, anasarca, edema involving upper extremities, abdominal wall, and bilateral lower extremities, chronic venous stasis changes involving bilateral lower extremities MUSCULOSKELETAL: Muscle strength and tone normal. SPINE: No scoliosis or deformity SKIN: Left heel wound, covered with a dressing CENTRAL NERVOUS SYSTEM: Alert and oriented -3. No focal deficits, tone is normal in all 4 extremities. PSYCHIATRIC: Alert and oriented -3. Appropriate affect. Intact judgment and insight. - Labs CBC & Chem 7: 09/06/19 04:49 09/06/19 04:49 Labs: Abnormal Lab Results - Last 24 Hours (Table) 09/05/19 09/05/1909/05/20 Range/Units 11:50 17:17 20:28 RBC (4.30-5.90) m/uL Hgb (13.0-17.5) gm/dL Hct (39.0-53.0) % RDW (11.5-15.5) % Plt Count (150-450) k/uL BUN (9-20) mg/dL Creatinine (0.66-1.25) mg/dL POC Glucose (mg/dL) 115 H 109 H 125 H (75-99) mg/dL 09/06/19 09/06/19 09/06/19 Range/Units 04:49 04:49 06:40 RBC 2.66 L (4.30-5.90) m/uL Hgb 8.0 L (13.0-17.5) gm/dL Hct 25.4 L (39.0-53.0) % RDW 17.6 H (11.5-15.5) % Plt Count 71 L (150-450) k/uL BUN 70 H (9-20) mg/dL Creatinine 3.61 H (0.66-1.25) mg/dL POC Glucose (mg/dL) 101 H (75-99) mg/dL Microbiology - Last 24 Hours (Table) 09/05/19 12:30 Gram Stain - Preliminary Sputum Sputum Culture - Preliminary 09/01/19 15:20 Blood Culture - Preliminary Blood No Growth after 96 hours 09/03/19 22:00 Catheter Tip Culture - Preliminary Picc Line 09/02/19 11:15 Gram Stain - Preliminary Pleural Fluid Body Fluid Culture - Preliminary Assessment and Plan Plan: Assessment: #1. Dyspnea, multifactorial, related to acute exacerbation of systolic congestive heart failure, bilateral pleural effusions, left greater than right and sepsis #2. Recurrent pleural effusions, left greater than right, with development of left hemothorax/left lung opacification, status post left-sided thoracentesis on 09/02/2019 removal of 2.3 L of pleural fluid, oral fluid cultures have shown no growth so far, pleural fluid analysis showed transudate of fluid and cytology was negative. #3. Sepsis, possibly related to left heel wound, wound cultures were positive for vancomycin resistant enterococcus and gram-negative bacilli and yeast species, final cultures pending #4. Acute exacerbation of systolic congestive heart failure #5. Acute kidney injury requiring hemodialysis #6. Anasarca #7. Hyperkalemia, related to acute kidney injury improved with hemodialysis #8. Acute metabolic acidosis related to a chaotic, improved #9. Chronic kidney disease stage III #10. Hypotension remains on norepinephrine infusion currently at 4 mics per minute #11. Anemia of chronic disease #12. Chronic medical debility Plan: Continue antibiotics per ID service recommendations, patient has been afebrile, so far pleural fluid cultures and sputum cultures have been negative. Despite the appearance of the recurrent left pleural effusion patient denies worsening shortness of breath, patient is scheduled for hemodialysis treatment today. We'll hold aspirin and Plavix for possibility of left-sided thoracentesis today. No altered mentation, no fever or chills, requiring small dose of norepinephrine. Still continues to be significantly fluid overloaded and oliguric. Patient will remain in the intensive care unit for further monit oring. Continue GI and DVT prophylaxis, continue to monitor in the intensive care unit I performed a history & physical examination of the patient and discussed their management with my nurse practitioner, Gia Gonzalez. I reviewed the nurse practitioner's note and agree with the documented findings and plan of care. Lung sounds are positive for diminished breath sounds at the left base. The findings and the impression was discussed with the patient. I attest to the documentation by the nurse practitioner. Time with Patient: Less than 30 <Ruel Zhong - Last Filed: 09/06/19 10:21> Objective - Vital Signs Vital signs: Vital Signs Temp 97.4 F L 09/06/19 08:00 Pulse 84 09/06/19 10:00 Resp 17 09/06/19 10:00 BP 89/48 09/06/19 10:00 Pulse Ox 93 L 09/06/19 10:00 Intake & Output 09/05/19 09/06/19 09/06/19 18:59 06:59 18:59 Intake Total 673.674 441.709 20 Output Total 166 185 20 Balance 507.674 256.709 0 Weight 135.3 kg Intake: IV 270 290 20 Cefepime 1 gm In Sodium 50 Chloride 0.9% 50 ml @ 100 mls/hr IVPB Q24H [facility] Rx# :[id number] Sodium Chloride 0.9% 1, 270 240 20 000 ml @ 20 mls/hr IV . Q24H [facility] Rx#:[id number] Intake, IV Titration 43.674 91.709 Amount DAPTOmycin 870 mg In 50 Sodium Chloride 0.9% 50 ml @ 100 mls/hr IVPB Q48H [facility] Rx#:[id number] Norepinephrine 8 mg In 43.674 41.709 Sodium Chloride 0.9% 250 ml @ 0.05 MCG/KG/MIN 14. 043 mls/hr IV .[id number] [facility] Rx#:[id number] Oral 360 60 Output: Urine 166 185 20 Other: Voiding Method Indwelling Catheter Indwelling Catheter - Labs CBC & Chem 7: 09/06/19 04:49 09/06/19 04:49 Labs: Abnormal Lab Results - Last 24 Hours (Table) 09/05/19 09/05/19 09/05/19 Range/Units 11:50 17:17 20:28 RBC (4.30-5.90) m/uL Hgb (13.0-17.5) gm/dL Hct (39.0-53.0) % RDW (11.5-15.5) % Plt Count (150-450) k/uL BUN (9-20) mg/dL Creatinine (0.66-1.25) mg/dL POC Glucose (mg/dL) 115 H 109 H 125 H (75-99) mg/dL 09/06/19 09/06/19 09/06/19 Range/Units 04:49 04:49 06:40 RBC 2.66 L (4.30-5.90) m/uL Hgb 8.0 L (13.0-17.5) gm/dL Hct 25.4 L (39.0-53.0) % RDW 17.6 H (11.5-15.5) % Plt Count 71 L (150-450) k/uL BUN 70 H (9-20) mg/dL Creatinine 3.61 H (0.66-1.25) mg/dL POC Glucose (mg/dL) 101 H (75-99) mg/dL Microbiology - Last 24 Hours (Table) 09/05/19 12:30 Gram Stain - Preliminary Sputum Sputum Culture - Preliminary 09/01/19 15:20 Blood Culture - Preliminary Blood No Growth after 96 hours 09/03/19 22:00 Catheter Tip Culture - Preliminary Picc Line 09/02/19 11:15 Gram Stain - Preliminary Pleural Fluid Body Fluid Culture - Preliminary Assessment and Plan Plan: This patient is being cheered in the intensive care unit. The patient has a complete opacification of the left lung with a large left-sided pleural effusion and for that reason the patient is going to undergo another hemodialysis. This has been proven to be a transudate. His admitting ejection fraction is improving with up to 45-50%. He has an acute on top of chronic kidney injury and the patient is dialysis dependent for now. The patient is going to undergo dialysis today. Antibiotic coverage is adequate with a combination of daptomycin and cefepime regarding VRE and gram-negative bacteria in his left heel which is a stage IV heel ulcer. He is diabetic. Blood sugars are being being monitored. His hemoglobin is at 8.0 and stable for now. Chronically debilitated from his multiple medical problems. Would optimize his pulmonary status and proceed with a thoracentesis today. He is currently on 3 L of Oxymizer nasal cannula. He is also requiring low-dose pressors for hemodynamic support. Discontinue the oral hydrocortisone.
--- NOTE | 2019-09-06 11:42 | XR ---
EXAMINATION TYPE: XR chest 1V portable DATE OF EXAM: 09/06/2019 HISTORY: s/p thoracentesis COMPARISON: 09/06/2019 TECHNIQUE: Single view of the chest is submitted. FINDINGS: Demonstrated are scattered senescent parenchymal change. Patchy right perihilar and left basilar infiltrate and/or effusion. Pulmonary venous congestion with interstitial edema. Improved aeration left lung. No evidence for pneumothorax. The heart is stable. Hilar and mediastinal structures are within normal limits. Degenerative changes are seen of the dorsal spine. IMPRESSION: 1. No evidence for left-sided pneumothorax. Much improved aeration left lung.
[2019-09-06 12:03] LABS: Glucose,Whole Blood 169 mg/dL (75-99)
--- NOTE | 2019-09-06 12:29 | P.PN ---
Subjective Patient is seen in follow-up for acute kidney injury on chronic kidney disease. Creatinine peaked at 4.37 this admission. Also noted to be persistently hyperkalemic. He was dialyzed urgently with improvement of hyperkalemia. Potassium level now normal. Acidosis improved. Urine output about 15-20 mL an hour. Still on Levophed but lower dose. Denies chest pain or shortness of breath. Vital signs are stable. Currently on Levophed. General: The patient appeared well nourished and normally developed. HEENT: Head exam is unremarkable. Neck is without jugular venous distension. LUNGS: Breath sounds decreased. HEART: Rate and Rhythm are regular. First and second heart sounds normal. No murmurs, rubs or gallops. ABDOMEN: Abdominal exam reveals normal bowel sounds. Non-tender. EXTREMITITES: 1+ edema. Objective - Vital Signs Vital signs: Vital Signs Temp 97.4 F L 09/06/19 08:00 Pulse 84 09/06/19 10:00 Resp 17 09/06/19 10:00 BP 89/48 09/06/19 10:00 Pulse Ox 93 L 09/06/19 10:00 Intake & Output 09/05/19 09/06/19 09/06/19 18:59 06:59 18:59 Intake Total 673.674 441.709 20 Output Total 166 185 20 Balance 507.674 256.709 0 Weight 135.3 kg Intake: IV 270 290 20 Cefepime 1 gm In Sodium 50 Chloride 0.9% 50 ml @ 100 mls/hr IVPB Q24H [facility] Rx# :[id number] Sodium Chloride 0.9% 1, 270 240 20 000 ml @ 20 mls/hr IV . Q24H [facility] Rx#:[id number] Intake, IV Titration 43.674 91.709 Amount DAPTOmycin 870 mg In 50 Sodium Chloride 0.9% 50 ml @ 100 mls/hr IVPB Q48H [facility] Rx#:[id number] Norepinephrine 8 mg In 43.674 41.709 Sodium Chloride 0.9% 250 ml @ 0.05 MCG/KG/MIN 14. 043 mls/hr IV .[id number] [facility] Rx#:[id number] Oral 360 60 Output: Urine 166 185 20 Other: Voiding Method Indwelling Catheter Indwelling Catheter - Labs CBC & Chem 7: 09/06/19 04:49 09/06/19 04:49 Labs: Abnormal Lab Results - Last 24 Hours (Table) 09/05/19 09/05/19 09/06/19 Range/Units 17:17 20:28 04:49 RBC 2.66 L (4.30-5.90) m/uL Hgb 8.0 L (13.0-17.5) gm/dL Hct 25.4 L (39.0-53.0) % RDW 17.6 H (11.5-15.5) % Plt Count 71 L (150-450) k/uL BUN (9-20) mg/dL Creatinine (0.66-1.25) mg/dL POC Glucose (mg/dL) 109 H 125 H (75-99) mg/dL 09/06/19 09/06/19 09/06/19 Range/Units 04:49 06:40 12:01 RBC (4.30-5.90) m/uL Hgb (13.0-17.5) gm/dL Hct (39.0-53.0) % RDW (11.5-15.5) % Plt Count (150-450) k/uL BUN 70 H (9-20) mg/dL Creatinine 3.61 H (0.66-1.25) mg/dL POC Glucose (mg/dL) 101 H 169 H (75-99) mg/dL Microbiology - Last 24 Hours (Table) 09/05/19 12:30 Gram Stain - Preliminary Sputum Sputum Culture - Preliminary 09/01/19 15:20 Blood Culture - Preliminary Blood No Growth after 96 hours 09/03/19 22:00 Catheter Tip Culture - Preliminary Picc Line 09/02/19 11:15 Gram Stain - Preliminary Pleural Fluid Body Fluid Culture - Preliminary Assessment and Plan Plan: Assessment: 1. Acute kidney injury secondary to ATN secondary to hypotension. Creatinine peaked at 4.37 this admission. Oliguric. Currently hemodialysis dependent. No hydronephrosis noted on kidney ultrasound. 2. Hyperkalemia secondary to acute kidney injury and metabolic acidosis. Improved postdialysis. 3. Metabolic acidosis secondary to acute kidney injury. Improved. Maintained on oral sodium bicarbonate. 4. Volume overload. 5. Pleural effusion status post left-sided thoracentesis with 2.4 L drained. 6. Chronic kidney disease stage III with baseline creatinine in the range of 1.3-1.5. 7. Hypotension maintained on Levophed. 8. Anemia of chronic kidney disease. Iron saturation 21%. Maintained on Aranesp. Plan: Maintain IV Lasix. Continue to monitor renal function and urine output closely. Wean Levophed. Currently seen while undergoing hemodialysis. Another treatment tomorrow mostly for ultrafiltration. Increase dose of midodrine.
--- NOTE | 2019-09-06 14:44 | P.PN ---
Subjective Progress Note Date: 09/06/19 Patient was seen for a follow-up. Patient had undergone thoracentesis. Patient is much more alert and awake. Patient denies any new neurological symptoms. No new focal symptoms. Patient again tells me that he has history of cervical surgery in 1996. He has chronic weakness in the right upper limb. Objective - Vital Signs Vital signs: Vital Signs Temp 97.9 F 09/06/19 12:00 Pulse 87 09/06/19 14:00 Resp 20 09/06/19 14:00 BP 66/35 09/06/19 14:00 Pulse Ox 95 09/06/19 14:00 Intake & Output 09/05/19 09/06/19 09/06/19 18:59 06:59 18:59 Intake Total 673.674 441.709 271.165 Output Total 166 185 90 Balance 507.674 256.709 181.165 Weight 135.3 kg Intake: IV 270 290 140 Cefepime 1 gm In Sodium 50 Chloride 0.9% 50 ml @ 100 mls/hr IVPB Q24H [facility] Rx# :[id number] Sodium Chloride 0.9% 1, 270 240 140 000 ml @ 20 mls/hr IV . Q24H [facility] Rx#:[id number] Intake, IV Titration 43.674 91.709 131.165 Amount DAPTOmycin 870 mg In 50 Sodium Chloride 0.9% 50 ml @ 100 mls/hr IVPB Q48H [facility] Rx#:[id number] Norepinephrine 8 mg In 43.674 41.709 131.165 Sodium Chloride 0.9% 250 ml @ 0.05 MCG/KG/MIN 14. 043 mls/hr IV .[id number] [facility] Rx#:[id number] Oral 360 60 Output: Urine 166 185 90 Other: Voiding Method Indwelling Catheter Indwelling Catheter - Exam On examination patient is alert and awake. His speech is moderately hoarse but no obvious aphasia or dysarthria. Patient's comprehension is intact. Patient is following commands. His mentation is normal although slightly slow. On cranial nerve examination his pupils are still anisocoric, with right slightly larger than the left. He had cataract surgery only in the left eye. Visual rosenbaum are full. He has very mild right facial asymmetry. Tongue protrudes slightly to the midline. No definitive pronator drift. The pattern cleaner is 5-on the right. Triceps is 4 on the right. Deltoid and biceps appears normal. Patient can wiggle his toes, ankles and move his hips equally bilaterally. - Labs CBC & Chem 7: 09/06/19 04:49 09/06/19 04:49 Labs: Abnormal Lab Results - Last 24 Hours (Table) 09/05/19 09/05/19 09/06/19 Range/Units 17:17 20:28 04:49 RBC 2.66 L (4.30-5.90) m/uL Hgb 8.0 L (13.0-17.5) gm/dL Hct 25.4 L (39.0-53.0) % RDW 17.6 H (11.5-15.5) % Plt Count 71 L (150-450) k/uL BUN (9-20) mg/dL Creatinine (0.66-1.25) mg/dL POC Glucose (mg/dL) 109 H 125 H (75-99) mg/dL 09/06/19 09/06/19 09/06/19 Range/Units 04:49 06:40 12:01 RBC (4.30-5.90) m/uL Hgb (13.0-17.5) gm/dL Hct (39.0-53.0) % RDW (11.5-15.5) % Plt Count (150-450) k/uL BUN 70 H (9-20) mg/dL Creatinine 3.61 H (0.66-1.25) mg/dL POC Glucose (mg/dL) 101 H 169 H (75-99) mg/dL Microbiology - Last 24 Hours (Table) 09/03/19 22:00 Catheter Tip Culture - Final Picc Line 09/02/19 11:15 Gram Stain - Final Pleural Fluid Body Fluid Culture - Final 09/05/19 12:30 Gram Stain - Preliminary Sputum Sputum Culture - Preliminary 09/01/19 15:20 Blood Culture - Preliminary Blood No Growth after 96 hours Assessment and Plan Assessment: * 74-year-old male admitted with sepsis, hypotension, noted to have mild focal deficits with right facial asymmetry. Patient has chronic weakness of the right arm related to previous cervical fusion. Otherwise examination is nonfocal. Small lacunar CVA is a possibility. * Hypertension * Diabetes * Hyperlipidemia * Acute on chronic renal insufficiency. Plan: * Patient had computed tomography scan of the head, which revealed no acute process. * Continue dual antiplatelet medications, if no medical contraindication. Patient has been on DAP prior to arrival to the hospital. * Carotid Doppler revealed irregular intimal wall changes noted in bilateral carotid systems, especially in bilateral carotid bifurcations. Antegrade flow in both vertebral arteries. * Patient had a 2-D echo performed, which revealed no embolic source. * Hemoglobin A1c is 6.2. * Patient is neurologically stable. Continue present management. * Neurology will sign off. Please call neurology if any other concerns.
[2019-09-06 16:39] LABS: Glucose,Whole Blood 168 mg/dL (75-99)
[2019-09-06] MEDS: NOREPINEPHRINE 8 MG in SODIUM CHLORIDE 0.9% 250 ML IV SCH (17:22)
--- NOTE | 2019-09-06 18:29 | PN ---
PROGRESS NOTE DATE OF SERVICE: 09/06/2019 This 74-year-old gentleman admitted shortness of breath and left-sided possible pneumonia and pleural effusion, had features of sepsis. Patient started on IV antibiotics. Pulmonary performed a thoracocentesis also. The patient also developed renal failure. Hemodialysis also being continued. Patient also hypotensive which is probably multifactorial. The patient was pressor supported earlier. Chest x-ray showed some improvement, still he has bilateral lesions at this time. A swallow test was done earlier. Multiple consultants are following the patient closely. Blood pressure is slightly better than yesterday. Neurology is also following the patient closely. The sputum culture showed gram-negative bacilli and Leatha albicans and the wound culture showing VRE, yeast and gram-negative bacilli also. PAST MEDICAL HISTORY: Reviewed. REVIEW OF SYSTEMS: CARDIOVASCULAR SYSTEM: No angina. RESPIRATORY: As mentioned earlier. GI: As mentioned earlier. : No dysuria. NERVOUS SYSTEM: No numbness or weakness. CURRENT MEDICATIONS: 1. Tylenol p.r.n. 2. [place] 5 mg q.4 p.r.n. 3. DuoNeb q.i.d. and p.r.n. 4. Aspirin 81 mg p.o. daily. 5. Betamethasone b.i.d. 6. Pulmicort 1 mg b.i.d. 7. Cefepime 1 g IV daily. 8. Plavix 75 mg. 9. Daptomycin 870 mg p.o. q.48 hours. 10.Ancef. 11.Flonase. 12.Perforomist 20 mg b.i.d. 13.Lasix 80 mg p.o. daily. 14.NovoLog. 15.Lactobacillus. 16.Midodrine 10 mg t.i.d. 17.Narcan 0.2 q.2 p.r.n. 18.Norepinephrine. 19.Protonix 40 mg. 20.P.r.n. medications. 21.Kenalog. PHYSICAL EXAM: Patient is alert, oriented x2. Pulse is 85, blood pressure 88/51, respiration 24, temperature normal, pulse ox 96% on room air. HEENT: Conjunctivae pale. Facial puffiness. Oral mucosa moist. NECK: No jugular venous distention. No lymph node enlargement. CARDIOVASCULAR: S1, S2. RESPIRATORY: Diminished breath sounds at the bases. Bilateral scattered rhonchi and crackles. ABDOMEN: Soft, obese, nontender. LEGS: No edema, no swelling. NERVOUS SYSTEM: Higher functions mentioned earlier. Moves all four limbs. No focal deficits. LYMPHATICS: No lymph node in neck or axilla. SKIN: No rash. JOINTS: No active deforming arthropathy. LABS: WBC 8.2, hemoglobin is 8 and platelets 71. Creatinine 3.61. ASSESSMENT: 1. Shortness of breath, possibly multifactorial, left-sided pneumonia with possibly gram-negative with pleural effusion, atelectasis, collapse with severe sepsis, septic shock and hypotension, present on admission. 2. Chronic obstructive pulmonary disease acute exacerbation with acute hypoxic respiratory failure. 3. Change in mental status, acute metabolic encephalopathy multifactorial. 4. Acute renal failure with acute tubular necrosis with prerenal renal failure on hemodialysis, new onset and ultrafiltration. Sputum culture showing gram negative bacilli, Leatha albicans and left heel wound culture shows gram negative bacilli, VRE as well as yeast. 5. Hyperkalemia secondary to renal failure. 6. Severe hypotension secondary to sepsis, septic shock. 7. History of recent angiography and peripheral leg. 8. Possible contrast induced nephropathy. 9. Hyperkalemia. 10.Hypoalbuminemia with mild to moderate protein calorie malnutrition. 11.Possible anemia of chronic disease. 12.Thrombocytopenia. 13.History of congestive heart failure with chronic systolic dysfunction, ejection fraction 20-25% with possibly cardiomyopathy. 14.History of chronic obstructive pulmonary disease. 15.Diabetes mellitus type 2. 16.Hypertension. 17.Hyperlipidemia. 18.History of myocardial infarction. 19.History of rheumatoid arthritis. 20.History of left heel osteomyelitis. 21.History of peripheral neuropathy. 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 23.History AICD. 24.History of coronary artery disease, stent. 25.Cervical fusion, laminectomy, degenerative joint disease. 26.History of postoperative nausea, vomiting. 27.History of obesity with body mass index of 44.6. 28.FULL CODE. RECOMMENDATIONS AND DISCUSSION: We will continue the current medication, continue to monitor, continue symptomatic treatment. Continue the antibiotics, continue the antifungals. Otherwise, closely follow with multiple consultants. Prognosis guarded because of multiple complex medical issues. The patient is on cefepime and daptomycin. The EKG showed nonspecific ST-T changes. Further recommendations to follow. A 2D echo was done earlier last week which showed low ejection fraction with moderate global hypokinesis also. Multiple valvular abnormalities also noted. Once again, the prognosis is extremely guarded. See orders for details. MMODL / IJN: [id number] /
[2019-09-06 20:15] LABS: Glucose,Whole Blood 91 mg/dL (75-99)
[2019-09-06] MEDS: CEFEPIME 1 GM in SODIUM CHLORIDE 0.9% 50 ML IVPB SCH (21:17)
--- NOTE | 2019-09-06 22:22 | PN ---
PROGRESS NOTE DATE OF SERVICE: 09/06/2019 REASON FOR FOLLOWUP: 1. Left heel infected pressure ulcer. 2. Possible pneumonia. INTERVAL HISTORY: The patient is currently afebrile. He is status post heel wound debridement this morning and tolerated the procedure. Breathing comfortably. Did have a cough. Not bringing up any sputum. No nausea, no vomiting. No abdominal pain or any worsening of the left heel area. PHYSICAL EXAMINATION: Blood pressure 112/57, pulse 80, temperature 97.4, O2 sats are 100% . General description is elderly male lying in bed in no distress. Respiratory system: Unlabored breathing. Decreased breath sounds at the bases. No wheeze. Heart S1, S2. Regular rate and rhythm. Abdomen soft, no tenderness. Left heel is currently dressed up. LABS: Hemoglobin 8, white 8, BUN of 70, creatinine 2.61. DIAGNOSTIC IMPRESSION AND PLAN: Patient with left heel pressure ulcer with secondary cellulitis. Culture with VRE gram- negative, also with a component of possible gram negative pneumonia. The patient is currently covered with cefepime and daptomycin. We will monitor clinical course closely. Continue supportive care. MMODL / IJN: [id number] / MTDD
[2019-09-07] MEDS: SODIUM CHLORIDE 0.9% 1,000 ML IV SCH (01:50)
[2019-09-07 05:04] LABS: Anisocytosis Slight; Basophils % (A) 0 %; Eosinophils # (A) 0.4 k/uL (0-0.7); Eosinophils % (A) 4 %; HCT 26.3 % (39.0-53.0); Hypochromasia Marked; Lymphocytes # (A) 0.6 k/uL (1.0-4.8); Lymphocytes % (A) 6 %; MCH 29.9 pg (25.0-35.0); MCHC 30.5 g/dL (31.0-37.0); MCV 97.9 fL (80.0-100.0); Macrocytosis Slight; Mean Platelet Volume 9.7; Monocytes # (A) 0.6 k/uL (0-1.0); Monocytes % (A) 6 %; Neutrophils # (A) 7.9 k/uL (1.3-7.7); Neutrophils % (A) 82 %; RBC 2.69 m/uL (4.30-5.90); RDW 17.5 % (11.5-15.5); WBC 9.6 k/uL (3.8-10.6)
[2019-09-07 05:14] LABS: Platelet Count 107 k/uL (150-450)
[2019-09-07 05:27] LABS: Albumin 2.8 g/dL (3.5-5.0); Calcium 8.8 mg/dL (8.4-10.2); Potassium 4.5 mmol/L (3.5-5.1); Total Bilirubin 0.9 mg/dL (0.2-1.3); Total Protein 5.9 g/dL (6.3-8.2)
[2019-09-07 06:43] LABS: Glucose,Whole Blood 92 mg/dL (75-99)
[2019-09-07] MEDS: INSULIN ASPART (NovoLOG) 100 UNIT/ML VIAL SQ SCH ×4 (06:48→21:06)
[2019-09-07] MEDS: MIDODRINE 5 MG TAB PO SCH ×3 (06:50→17:20)
--- NOTE | 2019-09-07 07:15 | XR ---
EXAMINATION TYPE: XR chest 1V DATE OF EXAM: 09/07/2019 COMPARISON: 09/06/2019 HISTORY: Shortness of breath FINDINGS: There are bilateral pleural effusions with cardiomegaly and bibasilar infiltrate. There is a diffuse interstitial pattern. Atherosclerotic change aorta. Cardiac device seen is postsurgical change overl tiesha cervical spine. Calcification increased density along the soft tissues of left neck is nonspecif ic IMPRESSION: 1. Correlate for pulmonary edema otherwise consider diffuse pneumonia.
--- NOTE | 2019-09-07 07:42 | PCN ---
PROCEDURE NOTE LEFT THORACENTESIS NOTE: DATE OF SERVICE: 09/06/2019 A time-out was completed verifying correct patient, procedure, site, positioning , and implant (s) or special equipment if applicable. Ultrasound guidance was not used and appropriate fluid pocket was identified and marked. Patient was positioned, prepped and draped in usual sterile fashion. Lidocaine was used to anesthetize the area. A Thoracentesis catheter was introduced into the pleural space and fluid was removed. Blood loss was none. A chest x-ray shows no pneumothorax. Total Fluid Removed: 2.0 L of pleural fluid. Color of Fluid: Dark-turbid, yellowish in color. Patient tolerated the procedure well and there were no complications. MMODL / IJN: [id number] / [facility]
[2019-09-07] MEDS: BUDESONIDE 1 MG/2 ML NEBU INHALATION SCH ×2 (08:23→20:32)
[2019-09-07] MEDS: FORMOTEROL FUMARATE 20 MCG/2 ML NEBU INHALATION SCH ×2 (08:23→20:32)
[2019-09-07] MEDS: IPRATROPIUM-ALBUTEROL 3 ML NEB INHALATION SCH ×3 (08:23→20:32)
--- NOTE | 2019-09-07 08:37 | P.PN ---
Subjective Progress Note Date: 09/07/19 Previous of oxygen by nasal cannula. Pulse ox is in the order of 99%. Chest x- ray still showing CHF and edema and there is a recommendation of the left-sided pleural effusion. Note that total of 2 L of fluid was removed yesterday. He also underwent dialysis and a total of 2 L of fluid was ultrafiltrate sedated at the time of dialysis. He is on no pressors. IV fluids are at KVO. He is on low-dose norepinephrine infusion which is running at 0.06 g per KG per minute. He is in a sinus rhythm. He is awake and alert. Hemoglobin today is at 8.0 which is relatively stable. Yesterday. Creatinine is at 3.0. Electrodes are all within normal limits. In terms of his cultures, the sputum culture showed gram-negative bacillus and Leatha albicans. He also has a heel ulcer on the left which showed a combination of gram-negative and VRE and yeast. The patient remains on a combination of daptomycin and cefepime. No fever. He is on Midrin to his blood pressure response. The echocardiogram showed an ejection fraction of 35-40%. There is [id number]-[id number] MR, scxp-ms-qjgtqvbu pulmonary hype rtension with a PA pressure of 38. There is also mild aortic stenosis. Objective - Vital Signs Vital signs: Vital Signs Temp 97.5 F L 09/07/19 04:00 Pulse 74 09/07/19 08:24 Resp 11 L 09/07/19 06:30 BP 84/61 09/07/19 07:00 Pulse Ox 98 09/07/19 07:00 Intake & Output 09/06/19 09/07/19 09/07/19 18:59 06:59 18:59 Intake Total 419.193 544.618 20 Output Total 2165 137 0 Balance -1745.807 407.618 20 Weight 132.5 kg Intake: IV 240 290 20 Cefepime 1 gm In Sodium 50 Chloride 0.9% 50 ml @ 100 mls/hr IVPB Q24H [facility] Rx# :[id number] Sodium Chloride 0.9% 1, 240 240 20 000 ml @ 20 mls/hr IV . Q24H [facility] Rx#:[id number] Intake, IV Titration 179.193 154.618 Amount Norepinephrine 8 mg In 179.193 154.618 Sodium Chloride 0.9% 250 ml @ 0.05 MCG/KG/MIN 14. 043 mls/hr IV .[id number] [facility] Rx#:[id number] Blood Product 100 Output: Urine 165 137 0 Hemodialysis 2000 Other: Voiding Method Indwelling Catheter Indwelling Catheter - Exam GENERAL EXAM: Alert, very pleasant, 74-year-old obese white male, on 3 L of oxygen the pulse ox of 94%, comfortable in no apparent distress. HEAD: Normocephalic/atraumatic. EYES: Normal reaction of pupils, equal size. Conjunctiva pink, sclera white. NOSE: Clear with pink turbinates. THROAT: No erythema or exudates. NECK: No masses, no JVD, no thyroid enlargement, no adenopathy. CHEST: No chest wall deformity. Symmetrical expansion. LUNGS: Diminished breath sounds over left lower and left mid lung, crackles at the right base, no rhonchi, no wheezing CVS: Regular rate and rhythm, normal S1 and S2, no gallops, no murmurs, no rubs ABDOMEN: Soft, nontender. No hepatosplenomegaly, normal bowel sounds, no guarding or rigidity. EXTREMITIES: No clubbing, generalized edema, anasarca, edema involving upper extremities, abdominal wall, and bilateral lower extremities, chronic venous stasis changes involving bilateral lower extremities MUSCULOSKELETAL: Muscle strength and tone normal. SPINE: No scoliosis or deformity SKIN: Left heel wound, covered with a dressing CENTRAL NERVOUS SYSTEM: Alert and oriented -3. No focal deficits, tone is normal in all 4 extremities. PSYCHIATRIC: Alert and oriented -3. Appropriate affect. Intact judgment and insight. - Labs CBC & Chem 7: 09/07/19 04:50 09/07/19 04:50 Labs: Abnormal Lab Results - Last 24 Hours (Table) 09/06/19 09/06/19 09/07/19 Range/Units 12:01 16:37 04:50 RBC 2.69 L (4.30-5.90) m/uL Hgb 8.0 L (13.0-17.5) gm/dL Hct 26.3 L (39.0-53.0) % MCHC 30.5 L (31.0-37.0) g/dL RDW 17.5 H (11.5-15.5) % Plt Count 107 L D (150-450) k/uL Neutrophils # 7.9 H (1.3-7.7) k/uL Lymphocytes # 0.6 L (1.0-4.8) k/uL BUN (9-20) mg/dL Creatinine (0.66-1.25) mg/dL POC Glucose (mg/dL) 169 H 168 H (75-99) mg/dL Total Protein (6.3-8.2) g/dL Albumin (3.5-5.0) g/dL 09/07/19 Range/Units 04:50 RBC (4.30-5.90) m/uL Hgb (13.0-17.5) gm/dL Hct (39.0-53.0) % MCHC (31.0-37.0) g/dL RDW (11.5-15.5) % Plt Count (150-450) k/uL Neutrophils # (1.3-7.7) k/uL Lymphocytes # (1.0-4.8) k/uL BUN 51 H (9-20) mg/dL Creatinine 3.04 H (0.66-1.25) mg/dL POC Glucose (mg/dL) (75-99) mg/dL Total Protein 5.9 L (6.3-8.2) g/dL Albumin 2.8 L (3.5-5.0) g/dL Microbiology - Last 24 Hours (Table) 09/01/19 15:20 Blood Culture - Preliminary Blood No Growth after 120 hours 09/05/19 12:30 Gram Stain - Preliminary Sputum Sputum Culture - Preliminary Gram Neg Bacilli Leatha albicans 09/03/19 22:00 Catheter Tip Culture - Final Picc Line 09/02/19 11:15 Gram Stain - Final Pleural Fluid Body Fluid Culture - Final Assessment and Plan Plan: #1. Acute hypoxic respiratory failure, with secondary shortness of breath and dyspnea, multifactorial, related to acute exacerbation of systolic congestive heart failure, bilateral pleural effusions, left greater than right and sepsis. The patient underwent another thoracentesis yesterday and total of 2 L of fluid was removed from the left lung. He is found to have gram-negative bacillus in the sputum. Currently covered with a combination of antibiotics including IV c efepime. The patient is on 3 L of oxygen by nasal cannula #2. Recurrent pleural effusions, left greater than right, with development of left hemothorax/left lung opacification, status post left-sided thoracentesis on 09/02/2019 removal of 2.3 L of pleural fluid, oral fluid cultures have shown no growth so far, pleural fluid analysis showed transudate of fluid and cytology was negative. A repeat thoracentesis was done on 09/06/2019 and a total of 2 L of fluid was removed. This was successful. The follow-up chest x-ray from today shows summary condition left-sided pleural effusion. #3. Sepsis, possibly related to left heel wound, wound cultures were positive for vancomycin resistant enterococcus and gram-negative bacilli and yeast species, final cultures pending #4. Acute exacerbation of systolic congestive heart failure, ejection fraction is around 30% and the patient has mild aortic stenosis, mild MR, mild degree of pulmonary hypertension. #5. Acute kidney injury requiring hemodialysis, last hemodialysis session was yesterday with 2 L of ultrafiltration #6. Anasarca #7. Hyperkalemia, related to acute kidney injury improved with hemodialysis #8. Acute metabolic acidosis related to a chaotic, improved #9. Chronic kidney disease stage III #10. Hypotension remains on norepinephrine infusion currently at 4 mics per minute #11. Anemia of chronic disease, hemoglobin is stable #12. Chronic medical debility #13 left heel ulcer stage IV with positive cultures indicating twice a day and gram-negative bacillus. #14, episodes of the medium Plan Consider another session of hemodialysis today Attempts to wean off the pressors as tolerated Awaiting the final cultures from the sputum Continue IV cefepime and daptomycin Wound care to the lower extremities We'll continue to follow.
[2019-09-07] MEDS ORDERED: HALOPERIDOL LACTATE 5 MG/ML 1 ML VIAL IVP PRN (08:57)
[2019-09-07] MEDS: ASPIRIN 81 MG PO SCH (08:58)
[2019-09-07] MEDS: CLOPIDOGREL 75 MG TAB PO SCH (08:58)
[2019-09-07] MEDS: FUROSEMIDE 10 MG/ML 10 ML VIAL IV SCH (08:58)
[2019-09-07] MEDS: BETAMETHASONE DIPROPIONATE 0.05% CREAM 15 GM TUBE TOPICAL SCH ×2 (08:58→21:11)
[2019-09-07] MEDS: FLUTICASONE 50MCG/SPRAY NASAL 16GM EA NOSTRIL SCH ×2 (08:58→21:11)
[2019-09-07] MEDS: SODIUM BICARBONATE TAB 650 MG TAB PO SCH ×2 (08:58→21:12)
[2019-09-07] MEDS: PANTOPRAZOLE 40 MG/10 ML VIAL IV SCH (08:58)
[2019-09-07] MEDS: LACTOBACILLUS ACIDOPH & BULGAR 1 EACH PACKET PO SCH (08:58)
--- NOTE | 2019-09-07 09:06 | P.PN ---
Subjective Progress Note Date: 09/07/19 Principal diagnosis: Coronary artery disease/recurrent pleural effusion This is a 74-year-old gentleman with history of coronary artery disease, chronic systolic congestive heart failure, diabetes, hypertension, dyslipidemia, and chronic kidney disease, was admitted to the hospital with increasing shortness of breath. He was found to have large left-sided pleural effusion and he underwent pleurocentesis. The patient was seen this morning, September 072019. Clinically he looks is a same. He underwent pleurocentesis from the left side yesterday and repeated chest x-ray today showed improvement compared to the one before which showed complete opacification of the left chest. He is on IV diuretics with Lasix at 80 mg daily. The blood pressure is marginally normal. He continues to be on hemodialysis. Objective - Vital Signs Vital signs: Vital Signs Temp 97.5 F L 09/07/19 04:00 Pulse 74 09/07/19 08:50 Resp 16 09/07/19 08:30 BP 93/62 09/07/19 08:30 Pulse Ox 99 09/07/19 08:30 Intake & Output 09/06/19 09/07/19 09/07/19 18:59 06:59 18:59 Intake Total 419.193 544.618 20 Output Total 2165 137 0 Balance -1745.807 407.618 20 Weight 132.5 kg Intake: IV 240 290 20 Cefepime 1 gm In Sodium 50 Chloride 0.9% 50 ml @ 100 mls/hr IVPB Q24H [facility] Rx# :[id number] Sodium Chloride 0.9% 1, 240 240 20 000 ml @ 20 mls/hr IV . Q24H [facility] Rx#:[id number] Intake, IV Titration 179.193 154.618 Amount Norepinephrine 8 mg In 179.193 154.618 Sodium Chloride 0.9% 250 ml @ 0.05 MCG/KG/MIN 14. 043 mls/hr IV .[id number] [facility] Rx#:[id number] Blood Product 100 Output: Urine 165 137 0 Hemodialysis 2000 Other: Voiding Method Indwelling Catheter Indwelling Catheter - Constitutional General appearance: Present: no acute distress - Respiratory Respiratory: left: diminished - Cardiovascular Rhythm: regular Heart sounds: normal: S1, S2 - Labs CBC & Chem 7: 09/07/19 04:50 09/07/19 04:50 Labs: Abnormal Lab Results - Last 24 Hours (Table) 09/06/19 09/06/19 09/07/19 Range/Units 12:01 16:37 04:50 RBC 2.69 L (4.30-5.90) m/uL Hgb 8.0 L (13.0-17.5) gm/dL Hct 26.3 L (39.0-53.0) % MCHC 30.5 L (31.0-37.0) g/dL RDW 17.5 H (11.5-15.5) % Plt Count 107 L D (150-450) k/uL Neutrophils # 7.9 H (1.3-7.7) k/uL Lymphocytes # 0.6 L (1.0-4.8) k/uL BUN (9-20) mg/dL Creatinine (0.66-1.25) mg/dL POC Glucose (mg/dL) 169 H 168 H (75-99) mg/dL Total Protein (6.3-8.2) g/dL Albumin (3.5-5.0) g/dL 09/07/19 Range/Units 04:50 RBC (4.30-5.90) m/uL Hgb (13.0-17.5) gm/dL Hct (39.0-53.0) % MCHC (31.0-37.0) g/dL RDW (11.5-15.5) % Plt Count (150-450) k/uL Neutrophils # (1.3-7.7) k/uL Lymphocytes # (1.0-4.8) k/uL BUN 51 H (9-20) mg/dL Creatinine 3.04 H (0.66-1.25) mg/dL POC Glucose (mg/dL) (75-99) mg/dL Total Protein 5.9 L (6.3-8.2) g/dL Albumin 2.8 L (3.5-5.0) g/dL Microbiology - Last 24 Hours (Table) 09/01/19 15:20 Blood Culture - Preliminary Blood No Growth after 120 hours 09/05/19 12:30 Gram Stain - Preliminary Sputum Sputum Culture - Preliminary Gram Neg Bacilli Leatha albicans 09/03/19 22:00 Catheter Tip Culture - Final Picc Line 09/02/19 11:15 Gram Stain - Final Pleural Fluid Body Fluid Culture - Final Assessment and Plan Assessment: Assessment Coronary artery disease and prior revascularization Chronic systolic congestive heart failure Recurrent left pleural effusion Multiple comorbid conditions Chronic kidney disease Plan Continue the Lasix IV which has been managed by the nephrology team He is status post left pleurocentesis Intensive care team on the case Follow-up with the patient
--- NOTE | 2019-09-07 10:42 | P.PN ---
Subjective Patient is seen in follow-up for acute kidney injury on chronic kidney disease. Creatinine peaked at 4.37 this admission. Also noted to be persistently hyperkalemic. He was dialyzed urgently with improvement of hyperkalemia. Potassium level now normal. Acidosis improved. Urine output about 10-20 mL an hour. Remains on low-dose Levophed. Denies chest pain or shortness of breath. Vital signs are stable. Currently on Levophed. General: The patient appeared well nourished and normally developed. HEENT: Head exam is unremarkable. Neck is without jugular venous distension. LUNGS: Breath sounds decreased. HEART: Rate and Rhythm are regular. First and second heart sounds normal. No murmurs, rubs or gallops. ABDOMEN: Abdominal exam reveals normal bowel sounds. Non-tender. EXTREMITITES: 1+ edema. Objective - Vital Signs Vital signs: Vital Signs Temp 97.5 F L 09/07/19 04:00 Pulse 80 09/07/19 10:00 Resp 20 09/07/19 10:00 BP 87/53 09/07/19 10:00 Pulse Ox 96 09/07/19 10:00 Intake & Output 09/06/19 09/07/19 09/07/19 18:59 06:59 18:59 Intake Total 419.193 544.618 80 Output Total 2165 137 25 Balance -1745.807 407.618 55 Weight 132.5 kg Intake: IV 240 290 80 Cefepime 1 gm In Sodium 50 Chloride 0.9% 50 ml @ 100 mls/hr IVPB Q24H [facility] Rx# :[id number] Sodium Chloride 0.9% 1, 240 240 80 000 ml @ 20 mls/hr IV . Q24H [facility] Rx#:[id number] Intake, IV Titration 179.193 154.618 Amount Norepinephrine 8 mg In 179.193 154.618 Sodium Chloride 0.9% 250 ml @ 0.05 MCG/KG/MIN 14. 043 mls/hr IV .[id number] [facility] Rx#:[id number] Blood Product 100 Output: Urine 165 137 25 Hemodialysis 2000 Other: Voiding Method Indwelling Catheter Indwelling Catheter - Labs CBC & Chem 7: 09/07/19 04:50 09/07/19 04:50 Labs: Abnormal Lab Results - Last 24 Hours (Table) 09/06/19 09/06/19 09/07/19 Range/Units 12:01 16:37 04:50 RBC 2.69 L (4.30-5.90) m/uL Hgb 8.0 L (13.0-17.5) gm/dL Hct 26.3 L (39.0-53.0) % MCHC 30.5 L (31.0-37.0) g/dL RDW 17.5 H (11.5-15.5) % Plt Count 107 L D (150-450) k/uL Neutrophils # 7.9 H (1.3-7.7) k/uL Lymphocytes # 0.6 L (1.0-4.8) k/uL BUN (9-20) mg/dL Creatinine (0.66-1.25) mg/dL POC Glucose (mg/dL) 169 H 168 H (75-99) mg/dL Total Protein (6.3-8.2) g/dL Albumin (3.5-5.0) g/dL 09/07/19 Range/Units 04:50 RBC (4.30-5.90) m/uL Hgb (13.0-17.5) gm/dL Hct (39.0-53.0) % MCHC (31.0-37.0) g/dL RDW (11.5-15.5) % Plt Count (150-450) k/uL Neutrophils # (1.3-7.7) k/uL Lymphocytes # (1.0-4.8) k/uL BUN 51 H (9-20) mg/dL Creatinine 3.04 H (0.66-1.25) mg/dL POC Glucose (mg/dL) (75-99) mg/dL Total Protein 5.9 L (6.3-8.2) g/dL Albumin 2.8 L (3.5-5.0) g/dL Microbiology - Last 24 Hours (Table) 09/05/19 12:30 Gram Stain - Final Sputum Sputum Culture - Final Klebsiella pneumoniae Leatha albicans 09/01/19 15:20 Blood Culture - Preliminary Blood No Growth after 120 hours 09/03/19 22:00 Catheter Tip Culture - Final Picc Line 09/02/19 11:15 Gram Stain - Final Pleural Fluid Body Fluid Culture - Final Assessment and Plan Plan: Assessment: 1. Acute kidney injury secondary to ATN secondary to hypotension. Creatinine peaked at 4.37 this admission. Oliguric and unresponsive to diuretics. Currently hemodialysis dependent. No hydronephrosis noted on kidney ultrasound. 2. Hyperkalemia secondary to acute kidney injury and metabolic acidosis. Improved postdialysis. 3. Metabolic acidosis secondary to acute kidney injury. Improved. Maintained on oral sodium bicarbonate. 4. Volume overload. 5. Pleural effusion status post left-sided thoracentesis with 2.4 L drained. Underwent thoracentesis again on September 06 2 L drained. 6. Chronic kidney disease stage III with baseline creatinine in the range of 1.3-1.5. 7. Hypotension maintained on Levophed. 8. Anemia of chronic kidney disease. Iron saturation 21%. Maintained on Arane sp. 9. Sputum culture positive for Klebsiella and Leatha maintained on antibiotics. Plan: Continue to monitor renal function and urine output closely. Wean Levophed. Maintain midodrine. Continue with daily dialysis mostly for ultrafiltration.
[2019-09-07 10:58] VITALS: BMI 40.7
[2019-09-07 11:58] LABS: Glucose,Whole Blood 100 mg/dL (75-99)
[2019-09-07] MEDS: NOREPINEPHRINE 8 MG in SODIUM CHLORIDE 0.9% 250 ML IV SCH ×2 (14:15→23:14)
--- NOTE | 2019-09-07 16:45 | PN ---
PROGRESS NOTE DATE OF SERVICE: 09/07/2019 REASON FOR FOLLOWUP: 1. Left heel infected pressure ulcer. 2. Pneumonia. INTERVAL HISTORY: The patient remains afebrile. The patient has been breathing comfortably and is hemodynamically stable. No diarrhea has been reported. Currently undergoing hemodialysis. PHYSICAL EXAMINATION: Blood pressure is 80/49 with a pulse of 90, temperature 98. He is 96% on 2 L nasal cannula. General description is an elderly male lying in bed in no distress. RESPIRATORY SYSTEM: Unlabored breathing with decreased breath sounds at the bases. No wheeze. HEART: S1, S2. Regular rate and rhythm. ABDOMEN: Soft. No tenderness. Left heel is currently dressed up. No obvious drainage on the dressing. LABS: Sputum is showing ESBL and Klebsiella. White count 9.6, creatinine 3.04. DIAGNOSTIC IMPRESSION AND PLAN: 1. Patient with a left heel infected pressure ulcer, status post debridement. Culture positive for gram-negative and VRE. Patient is covered with daptomycin with Invanz IV. 2. Positive sputum culture with extended-spectrum beta-lactamase and Klebsiella. Antibiotic was switched over to Invanz 500 mg daily. Continue with supportive care. MMODL / IJN: [id number] /
[2019-09-07 17:01] LABS: Glucose,Whole Blood 79 mg/dL (75-99)
[2019-09-07] MEDS: ERTAPENEM 0.5 GM in SODIUM CHLORIDE 0.9% 50 ML IVPB SCH (17:18)
[2019-09-07] MEDS ORDERED: SODIUM CHLORIDE 0.9% 1,500 ML IV ONE (18:26)
[2019-09-07 19:07] LABS: Calcium 8.8 mg/dL (8.4-10.2); Magnesium 1.9 mg/dL (1.6-2.3); Potassium 4.2 mmol/L (3.5-5.1)
[2019-09-07 19:56] LABS: Anisocytosis Slight; Basophils % (A) 0 %; Eosinophils # (A) 0.4 k/uL (0-0.7); Eosinophils % (A) 3 %; HCT 29.2 % (39.0-53.0); HGB 8.7 gm/dL (13.0-17.5); Hypochromasia Marked; Lymphocytes # (A) 0.3 k/uL (1.0-4.8); Lymphocytes % (A) 2 %; MCH 29.8 pg (25.0-35.0); MCHC 29.9 g/dL (31.0-37.0); MCV 99.6 fL (80.0-100.0); Macrocytosis Slight; Mean Platelet Volume 9.4; Monocytes # (A) 0.7 k/uL (0-1.0); Monocytes % (A) 5 %; Neutrophils # (A) 12.2 k/uL (1.3-7.7); Neutrophils % (A) 89 %; Platelet Count 105 k/uL (150-450); RBC 2.93 m/uL (4.30-5.90); RDW 17.4 % (11.5-15.5); WBC 13.7 k/uL (3.8-10.6)
[2019-09-07 21:06] LABS: Glucose,Whole Blood 102 mg/dL (75-99)
--- NOTE | 2019-09-07 22:23 | PN ---
PROGRESS NOTE DATE OF SERVICE: 09/07/2019 This 74-year-old gentleman who was admitted with significant sepsis and possible pneumonia is still continuing to be hypotensive. The wound cultures show Gram- negative bacilli, VRE, and sputum culture with Klebsiella and Leatha. The patient is being closely monitored. The patient is on multiple medications. Past medical history reviewed. The patient is on Levophed drip. The patient received hemodialysis, also. Only 2.2 L had been given, but subsequently patient had hypotension and 500 mL of fluid had to be infused back. REVIEW OF SYSTEMS: CARDIOVASCULAR SYSTEM: No angina, palpitations. RESPIRATORY SYSTEM: As mentioned earlier. GI: As mentioned earlier. : As mentioned earlier. NERVOUS SYSTEM: Diffusely weak. CURRENT MEDICATIONS: Reviewed. They include: 1. Tylenol 650 q.6 p.r.n. 2. [place] 5 mg p.r.n. 3. DuoNeb. 4. Aspirin 81 mg. 5. Betamethasone. 6. Pulmicort. 7. Plavix 75 mg daily. 8. Daptomycin. 9. Ancef. 11.Perforomist. 12.Lasix. 13.Haldol. 14.NovoLog. 15.Midodrine. 16.Narcan. 17.Zofran. 18.Kenalog. PHYSICAL EXAMINATION: Patient is alert and oriented x3. Pulse is 109, blood pressure 87/57, respiration 18, temperature 97.8, pulse ox 99% on 3 L. HEENT: Conjunctivae normal. Facial puffiness present. NECK: No jugular venous distention. CARDIOVASCULAR SYSTEM: S1, S2 muffled. RESPIRATORY SYSTEM: Breath sounds diminished at the bases. A few scattered rhonchi and crackles. ABDOMEN: Soft, obese, non-tender. LEGS: Bilateral leg edema. NERVOUS SYSTEM: Diffusely weak. LABS: WBC 13.6, hemoglobin 8.7, platelets 105. Sodium 142, potassium 4.2. Creatinine is 2.70. Plasma lactic acid 2.1. Troponin 0.186. ASSESSMENT: 1. Shortness of breath, possibly multifactorial, left-sided pneumonia, possibly Gram- negative, with pleural effusion, atelectasis, collapse and severe sepsis, septic shock as well as hypotension, present on admission. 2. Chronic obstructive pulmonary disease, acute exacerbation, with acute hypoxic respiratory failure. 3. Persistent hypotension. 4. Change in mental status, acute metabolic encephalopathy, multifactorial. 5. Acute renal failure with acute tubular necrosis with prerenal renal failure, on hemodialysis, new onset, with ultrafiltration initially. 6. Sputum culture showing Gram-negative bacilli, Leatha albicans, and heel wound culture showing Gram-negative bacilli, vancomycin-resistant Enterococcus as well as yeast. 7. Hyperkalemia secondary to renal failure. 8. Severe hypotension secondary to sepsis, septic shock. 9. History of recent angiography and peripheral artery disease. 10.Possible contrast-induced nephropathy. 11.Hyperkalemia. 12.Hypoalbuminemia with mild to moderate protein-calorie malnutrition. 13.Possible anemia of chronic disease. 14.Thrombocytopenia. 15.History of congestive heart failure with chronic systolic dysfunction, ejection fraction 20% to 25%, with possible cardiomyopathy. 16.History of chronic obstructive pulmonary disease. 17.Diabetes mellitus, type 2. 18.Hypertension. 19.Hyperlipidemia. 20.History of myocardial infarction. 21.History of rheumatoid arthritis. 22.History of left heel osteomyelitis. 23.History of peripheral neuropathy. 24.History of methicillin-resistant Staphylococcus aeruginosa and vancomycin- resistant Enterococcus. 25.History of automated implantable cardioverter defibrillator. 26.History of coronary artery disease, stent. 27.History of cervical fusion, laminectomy, degenerative joint disease. 28.History of postoperative nausea and vomiting. 29.History of obesity with body mass index of 44.6. 30.FULL CODE. RECOMMENDATIONS AND DISCUSSION: In this 74-year-old gentleman who presented with multiple complex medical issues, we will monitor the patient closely, continue the current medications, continue with symptomatic treatment. I would recommend continuing with Levophed support to keep MAP 65. Continue with cautious hemodialysis. Continue with empiric antibiotics. Multiple consultants, including Dr. Zhong, Infectious Disease and Nephrology, are following the patient closely. I would also recommend adding Florinef to the current regimen. Continue to monitor. Guarded prognosis. Further recommendations to follow. Add vitamins. MMODL / IJN: [id number] / MTDD
[2019-09-07] MEDS: FLUDROCORTISONE 0.1 MG TAB PO SCH (22:41)
[2019-09-07] MEDS: HYDROCORTISONE SUCCINATE 100 MG/2 ML VIAL IV SCH (22:51)
[2019-09-07] MEDS: SODIUM CHLORIDE 0.9% IVPB SCH (22:52)
[2019-09-07] MEDS: DAPTOMYCIN IVPB SCH (22:52)
[2019-09-07] MEDS: MORPHINE SULFATE 2 MG/ML SYRINGE IVP PRN (22:53)
[2019-09-08] MEDS: NOREPINEPHRINE 8 MG in SODIUM CHLORIDE 0.9% 250 ML IV SCH ×4 (02:08→16:52)
[2019-09-08 04:56] LABS: Anisocytosis Slight; Basophils % (A) 0 %; Eosinophils % (A) 0 %; HCT 28.5 % (39.0-53.0); HGB 8.5 gm/dL (13.0-17.5); Hypochromasia Marked; Lymphocytes # (A) 0.3 k/uL (1.0-4.8); Lymphocytes % (A) 3 %; MCH 29.8 pg (25.0-35.0); MCHC 29.9 g/dL (31.0-37.0); MCV 99.6 fL (80.0-100.0); Macrocytosis Slight; Monocytes # (A) 0.5 k/uL (0-1.0); Monocytes % (A) 4 %; Neutrophils # (A) 10.5 k/uL (1.3-7.7); Neutrophils % (A) 92 %; Platelet Count 132 k/uL (150-450); RBC 2.86 m/uL (4.30-5.90); RDW 17.5 % (11.5-15.5); WBC 11.4 k/uL (3.8-10.6)
[2019-09-08] MEDS: SODIUM CHLORIDE 0.9% 1,000 ML IV SCH (05:03)
[2019-09-08 05:07] LABS: Albumin 2.9 g/dL (3.5-5.0); Potassium 4.8 mmol/L (3.5-5.1); Total Bilirubin 1.4 mg/dL (0.2-1.3); Total Protein 6.1 g/dL (6.3-8.2)
[2019-09-08 06:44] LABS: Glucose,Whole Blood 97 mg/dL (75-99)
[2019-09-08] MEDS: INSULIN ASPART (NovoLOG) 100 UNIT/ML VIAL SQ SCH ×3 (06:46→16:49)
[2019-09-08] MEDS: MIDODRINE 5 MG TAB PO SCH ×3 (06:47→17:55)
[2019-09-08] MEDS: FORMOTEROL FUMARATE 20 MCG/2 ML NEBU INHALATION SCH ×2 (07:14→18:52)
[2019-09-08] MEDS: IPRATROPIUM-ALBUTEROL 3 ML NEB INHALATION SCH ×3 (07:14→18:52)
[2019-09-08] MEDS: BUDESONIDE 1 MG/2 ML NEBU INHALATION SCH ×2 (07:14→18:52)
--- NOTE | 2019-09-08 07:55 | P.PN ---
Subjective Progress Note Date: 09/08/19 Principal diagnosis: Coronary artery disease/recurrent pleural effusion This is a 74-year-old gentleman with history of coronary artery disease, chronic systolic congestive heart failure, diabetes, hypertension, dyslipidemia, and chronic kidney disease, was admitted to the hospital with increasing shortness of breath. He was found to have large left-sided pleural effusion and he underwent pleurocentesis. The patient was seen this morning, September 082019. He had an event last night where he was hypoxic and hypotensive. The troponin was checked and came in to be elevated at 1.4. There is more troponin ordered to see the trend. I did perform an EKG this morning and that revealed sinus rhythm with sinus tachycardia and diffuse ST segment changes appeared to be nonspecific. The chest x-ray showed increasing in the infusion. He is on dual antiplatelet therapy with aspirin and Plavix. We'll follow-up with the serial cardiac enzymes. Also I am performing an echocardiogram. He is going to have hyperfiltration later on today. Objective - Vital Signs Vital signs: Vital Signs Temp 97.7 F 09/08/19 04:15 Pulse 101 H 09/08/19 07:38 Resp 15 09/08/19 07:00 BP 96/61 09/08/19 07:00 Pulse Ox 97 09/08/19 07:00 Intake & Output 09/07/19 09/08/19 09/08/19 18:59 06:59 18:59 Intake Total 2553.382 1014.164 10 Output Total 80 70 10 Balance 2473.382 944.164 0 Weight 132.5 kg 132.5 kg Intake: IV 240 120 10 Sodium Chloride 0.9% 1, 240 120 10 000 ml @ 20 mls/hr IV . Q24H [facility] Rx#:[id number] Intake, IV Titration 103.382 894.164 Amount DAPTOmycin 870 mg In 50 Sodium Chloride 0.9% 50 ml @ 100 mls/hr IVPB Q48H [facility] Rx#:[id number] Norepinephrine 8 mg In 103.382 844.164 Sodium Chloride 0.9% 250 ml @ 0.05 MCG/KG/MIN 14. 043 mls/hr IV .[id number] [facility] Rx#:[id number] Hemodialysis 2210 Output: Urine 80 70 10 Other: Voiding Method Indwelling Catheter Indwelling Catheter - Constitutional General appearance: Present: no acute distress - Respiratory Respiratory: left: diminished - Cardiovascular Rhythm: regular Heart sounds: normal: S1, S2 - Labs CBC & Chem 7: 09/08/19 04:15 09/08/19 04:15 Labs: Abnormal Lab Results - Last 24 Hours (Table) 09/07/19 09/07/19 09/07/19 Range/Units 11:57 18:45 18:45 WBC (3.8-10.6) k/uL RBC (4.30-5.90) m/uL Hgb (13.0-17.5) gm/dL Hct (39.0-53.0) % MCHC (31.0-37.0) g/dL RDW (11.5-15.5) % Plt Count (150-450) k/uL Neutrophils # (1.3-7.7) k/uL Lymphocytes # (1.0-4.8) k/uL Chloride 108 H (98-107) mmol/L Carbon Dioxide 21 L (22-30) mmol/L BUN 42 H (9-20) mg/dL Creatinine 2.70 H (0.66-1.25) mg/dL POC Glucose (mg/dL) 100 H (75-99) mg/dL Plasma Lactic Acid Steve 2.1 H* (0.7-2.0) mmol/L Total Bilirubin (0.2-1.3) mg/dL AST (17-59) U/L ALT (4-49) U/L Alkaline Phosphatase (38-126) U/L Troponin I (0.000-0.034) ng/mL Total Protein (6.3-8.2) g/dL Albumin (3.5-5.0) g/dL 09/07/19 09/07/19 09/07/19 Range/Units 18:45 19:48 21:05 WBC 13.7 H (3.8-10.6) k/uL RBC 2.93 L (4.30-5.90) m/uL Hgb 8.7 L (13.0-17.5) gm/dL Hct 29.2 L (39.0-53.0) % MCHC 29.9 L (31.0-37.0) g/dL RDW 17.4 H (11.5-15.5) % Plt Count 105 L (150-450) k/uL Neutrophils # 12.2 H (1.3-7.7) k/uL Lymphocytes # 0.3 L (1.0-4.8) k/uL Chloride (98-107) mmol/L Carbon Dioxide (22-30) mmol/L BUN (9-20) mg/dL Creatinine (0.66-1.25) mg/dL POC Glucose (mg/dL) 102 H (75-99) mg/dL Plasma Lactic Acid Steve (0.7-2.0) mmol/L Total Bilirubin (0.2-1.3) mg/dL AST (17-59) U/L ALT (4-49) U/L Alkaline Phosphatase (38-126) U/L Troponin I 0.186 H* (0.000-0.034) ng/mL Total Protein (6.3-8.2) g/dL Albumin (3.5-5.0) g/dL 09/08/19 09/08/19 09/08/19 Range/Units 01:23 04:15 04:15 WBC 11.4 H (3.8-10.6) k/uL RBC 2.86 L (4.30-5.90) m/uL Hgb 8.5 L (13.0-17.5) gm/dL Hct 28.5 L (39.0-53.0) % MCHC 29.9 L (31.0-37.0) g/dL RDW 17.5 H (11.5-15.5) % Plt Count 132 L (150-450) k/uL Neutrophils # 10.5 H (1.3-7.7) k/uL Lymphocytes # 0.3 L (1.0-4.8) k/uL Chloride (98-107) mmol/L Carbon Dioxide 20 L (22-30) mmol/L BUN 43 H (9-20) mg/dL Creatinine 2.88 H (0.66-1.25) mg/dL POC Glucose (mg/dL) (75-99) mg/dL Plasma Lactic Acid Steve (0.7-2.0) mmol/L Total Bilirubin 1.4 H (0.2-1.3) mg/dL AST 166 H (17-59) U/L ALT 64 H (4-49) U/L Alkaline Phosphatase 189 H (38-126) U/L Troponin I 1.480 H* (0.000-0.034) ng/mL Total Protein 6.1 L (6.3-8.2) g/dL Albumin 2.9 L (3.5-5.0) g/dL Microbiology - Last 24 Hours (Table) 09/02/19 15:59 Gram Stain - Final Heel - Left Tissue Culture - Final Enterobacter cloacae Enterococcus faecium VRE Leatha species, not albicans 09/01/19 15:20 Blood Culture - Final Blood No Growth after 144 hours 09/05/19 12:30 Gram Stain - Final Sputum Sputum Culture - Final Klebsiella pneumoniae Leatha albicans Assessment and Plan Assessment: Assessment Coronary artery disease and prior revascularization Chronic systolic congestive heart failure Recurrent left pleural effusion Multiple comorbid conditions Chronic kidney disease Plan Continue dual antiplatelet therapy Follow-up with the serial cardiac enzymes Follow-up on the echocardiogram The EKG was performed and reviewed Follow-up with the patient
[2019-09-08] MEDS: LACTOBACILLUS ACIDOPH & BULGAR 1 EACH PACKET PO SCH (08:39)
[2019-09-08] MEDS: FUROSEMIDE 10 MG/ML 10 ML VIAL IV SCH (08:47)
[2019-09-08] MEDS: HYDROCORTISONE SUCCINATE 100 MG/2 ML VIAL IV SCH (08:51)
[2019-09-08] MEDS ORDERED: PANTOPRAZOLE 40 MG TABLET PO SCH (09:00)
--- NOTE | 2019-09-08 09:36 | XR ---
EXAMINATION TYPE: XR chest 1V DATE OF EXAM: 09/08/2019 COMPARISON: Prior chest x-ray 09/07/2019 HISTORY: Pleural effusions, abnormal chest x-ray TECHNIQUE: frontal view of the chest is obtained on 2 images. FINDINGS: Findings are similar to prior exam. IMPRESSION: Correlate for congestive heart failure, pneumonia, there is likely left pleural effusion . Cardiomegaly.
--- NOTE | 2019-09-08 09:48 | P.PN ---
Subjective Progress Note Date: 09/08/19 On today's evaluation, the patient is awake and alert. He is on oxygen at 3 L per minute nasal cannula. Note that during hemodialysis yesterday, the patient dropped his blood pressure significantly. He was given a 500 mL bolus and following that he was started on pressors which at one point went as high as 0.3 g per KG per minute. Note that during this time, he had no chest pain. He had some increased shortness of breath. The blood work showed a lactic acid level of 2.1. His white cell count was at 13.7 and the patient had no significant drop in hemoglobin which was at 8.5. However, the patient did have a rise in the troponin which was up to 1.4 max from the base of 0.18. Cardiology ev aluated this patient and they think that he had another cardiac event probably an acute non-STEMI. His known to have extensive CAD with previous revascularization. He also has chronic systolic heart failure and recurrent plural effusions. His ejection fraction is around 35-40%. The patient also has a mild to moderate MR, moderate pulmonary hypertension and mild aortic stenosis. The patient was also found to have Klebsiella pneumonia in the sputum and this was an ESBL producing organism. He is also known to have enterococcus VRE and Enterobacter in his wound and based on all this, the antibiotic coverage has been switched to include a combination of IV Invanz and IV daptomycin. He is a febrile for now. He has been weaned off the pressors and currently is on norepinephrine infusion running at 0.16 g per KG per minute. No plans for hemodialysis today. The chest x-ray from today shows pulmonary edema and recurrence of the pleural effusion more so on the left. There is afebrile. He is aspirating her speech therapy and the patient has been placed nothing by mouth. Objective - Vital Signs Vital signs: Vital Signs Temp 98 F 09/08/19 08:00 Pulse 97 09/08/19 09:30 Resp 12 09/08/19 09:30 BP 99/60 09/08/19 09:30 Pulse Ox 98 09/08/19 09:30 Intake & Output 09/07/19 09/08/19 09/08/19 18:59 06:59 18:59 Intake Total 2553.382 1014.164 156.368 Output Total 80 70 10 Balance 2473.382 944.164 146.368 Weight 132.5 kg 132.5 kg Intake: IV 240 120 30 Sodium Chloride 0.9% 1, 240 120 30 000 ml @ 20 mls/hr IV . Q24H [facility] Rx#:[id number] Intake, IV Titration 103.382 894.164 126.368 Amount DAPTOmycin 870 mg In 50 Sodium Chloride 0.9% 50 ml @ 100 mls/hr IVPB Q48H [facility] Rx#:[id number] Norepinephrine 8 mg In 103.382 844.164 126.368 Sodium Chloride 0.9% 250 ml @ 0.05 MCG/KG/MIN 14. 043 mls/hr IV .[id number] [facility] Rx#:[id number] Hemodialysis 2210 Output: Urine 80 70 10 Other: Voiding Method Indwelling Catheter Indwelling Catheter - Exam GENERAL EXAM: Alert, very pleasant, 74-year-old obese white male, on 3 L of oxygen the pulse ox of 94%, comfortable in no apparent distress. HEAD: Normocephalic/atraumatic. EYES: Normal reaction of pupils, equal size. Conjunctiva pink, sclera white. NOSE: Clear with pink turbinates. THROAT: No erythema or exudates. NECK: No masses, no JVD, no thyroid enlargement, no adenopathy. CHEST: No chest wall deformity. Symmetrical expansion. LUNGS: Diminished breath sounds over left lower and left mid lung, crackles at the right base, no rhonchi, no wheezing CVS: Regular rate and rhythm, normal S1 and S2, no gallops, no murmurs, no rubs ABDOMEN: Soft, nontender. No hepatosplenomegaly, normal bowel sounds, no guarding or rigidity. EXTREMITIES: No clubbing, generalized edema, anasarca, edema involving upper extremities, abdominal wall, and bilateral lower extremities, chronic venous stasis changes involving bilateral lower extremities and the patient has diminished pulses in all 4 extremities. MUSCULOSKELETAL: Muscle strength and tone normal. SPINE: No scoliosis or deformity SKIN: Left heel wound, covered with a dressing CENTRAL NERVOUS SYSTEM: Alert and oriented -3. No focal deficits, tone is normal in all 4 extremities. PSYCHIATRIC: Alert and oriented -3. Appropriate affect. Intact judgment and insight. - Labs CBC & Chem 7: 09/08/19 04:15 09/08/19 04:15 Labs: Abnormal Lab Results - Last 24 Hours (Table) 09/07/19 09/07/19 09/07/19 Range/Units 11:57 18:45 18:45 WBC (3.8-10.6) k/uL RBC (4.30-5.90) m/uL Hgb (13.0-17.5) gm/dL Hct (39.0-53.0) % MCHC (31.0-37.0) g/dL RDW (11.5-15.5) % Plt Count (150-450) k/uL Neutrophils # (1.3-7.7) k/uL Lymphocytes # (1.0-4.8) k/uL Chloride 108 H (98-107) mmol/L Carbon Dioxide 21 L (22-30) mmol/L BUN 42 H (9-20) mg/dL Creatinine 2.70 H (0.66-1.25) mg/dL POC Glucose (mg/dL) 100 H (75-99) mg/dL Plasma Lactic Acid Steve 2.1 H* (0.7-2.0) mmol/L Total Bilirubin (0.2-1.3) mg/dL AST (17-59) U/L ALT (4-49) U/L Alkaline Phosphatase (38-126) U/L Troponin I (0.000-0.034) ng/mL Total Protein (6.3-8.2) g/dL Albumin (3.5-5.0) g/dL 09/07/19 09/07/19 09/07/19 Range/Units 18:45 19:48 21:05 WBC 13.7 H (3.8-10.6) k/uL RBC 2.93 L (4.30-5.90) m/uL Hgb 8.7 L (13.0-17.5) gm/dL Hct 29.2 L (39.0-53.0) % MCHC 29.9 L (31.0-37.0) g/dL RDW 17.4 H (11.5-15.5) % Plt Count 105 L (150-450) k/uL Neutrophils # 12.2 H (1.3-7.7) k/uL Lymphocytes # 0.3 L (1.0-4.8) k/uL Chloride (98-107) mmol/L Carbon Dioxide (22-30) mmol/L BUN (9-20) mg/dL Creatinine (0.66-1.25) mg/dL POC Glucose (mg/dL) 102 H (75-99) mg/dL Plasma Lactic Acid Steve (0.7-2.0) mmol/L Total Bilirubin (0.2-1.3) mg/dL AST (17-59) U/L ALT (4-49) U/L Alkaline Phosphatase (38-126) U/L Troponin I 0.186 H* (0.000-0.034) ng/mL Total Protein (6.3-8.2) g/dL Albumin (3.5-5.0) g/dL 09/08/19 09/08/19 09/08/19 Range/Units 01:23 04:15 04:15 WBC 11.4 H (3.8-10.6) k/uL RBC 2.86 L (4.30-5.90) m/uL Hgb 8.5 L (13.0-17.5) gm/dL Hct 28.5 L (39.0-53.0) % MCHC 29.9 L (31.0-37.0) g/dL RDW 17.5 H (11.5-15.5) % Plt Count 132 L (150-450) k/uL Neutrophils # 10.5 H (1.3-7.7) k/uL Lymphocytes # 0.3 L (1.0-4.8) k/uL Chloride (98-107) mmol/L Carbon Dioxide 20 L (22-30) mmol/L BUN 43 H (9-20) mg/dL Creatinine 2.88 H (0.66-1.25) mg/dL POC Glucose (mg/dL) (75-99) mg/dL Plasma Lactic Acid Steve (0.7-2.0) mmol/L Total Bilirubin 1.4 H (0.2-1.3) mg/dL AST 166 H (17-59) U/L ALT 64 H (4-49) U/L Alkaline Phosphatase 189 H (38-126) U/L Troponin I 1.480 H* (0.000-0.034) ng/mL Total Protein 6.1 L (6.3-8.2) g/dL Albumin 2.9 L (3.5-5.0) g/dL Microbiology - Last 24 Hours (Table) 09/02/19 15:59 Gram Stain - Final Heel - Left Tissue Culture - Final Enterobacter cloacae Enterococcus faecium VRE Leatha species, not albicans 09/01/19 15:20 Blood Culture - Final Blood No Growth after 144 hours 09/05/19 12:30 Gram Stain - Final Sputum Sputum Culture - Final Klebsiella pneumoniae Leatha albicans Assessment and Plan Plan: #1. Acute hypoxic respiratory failure, with secondary shortness of breath and dyspnea, multifactorial, related to acute exacerbation of systolic congestive heart failure, bilateral pleural effusions, left greater than right and sepsis. The patient underwent another thoracentesis yesterday and total of 2 L of fluid was removed from the left lung. This was done on 09/06/2019. There is some reactivation of the left-sided pleural effusion on today's chest x-ray. Also, the patient was found to have Klebsiella pneumoniae in sputum, ESBL producing organism, possible superinfection/pneumonia and for that reason the patient was started on IV Invanz. The patient is on 3 L of oxygen by nasal cannula #2. Recurrent pleural effusions, left greater than right, with development of left hemothorax/left lung opacification, status post left-sided thoracentesis on 09/02/2019 removal of 2.3 L of pleural fluid, oral fluid cultures have shown no growth so far, pleural fluid analysis showed transudate of fluid and cytology was negative. A repeat thoracentesis was done on 09/06/2019 and a total of 2 L of fluid was removed. This was successful. The follow-up chest x-ray from today shows summary condition left-sided pleural effusion. #3. Sepsis, possibly related to left heel wound, wound cultures were positive for vancomycin resistant enterococcus and and Enterobacter. The patient also has ESBL producing Klebsiella pneumoniae in his sputum. #4. Acute exacerbation of systolic congestive heart failure, ejection fraction is around 30% and the patient has mild aortic stenosis, mild MR, mild degree of pulmonary hypertension. #5. Acute kidney injury requiring hemodialysis, last hemodialysis session was yesterday with 2 L of ultrafiltration, the procedure. The patient became h ypotensive. Another session of hemodialysis will be attempted today. #6. Anasarca #7. Hyperkalemia, related to acute kidney injury improved with hemodialysis #8. Acute metabolic acidosis, improved #9. Chronic kidney disease stage III #10. Hypotension remains on norepinephrine infusion currently at at the higher dose almost in the range of 25 g 11 anemia of chronic disease, hemoglobin is stable #12. Chronic medical debility #13 left heel ulcer stage IV with positive cultures indicating Enterobacter and VRE #14, episodes of delirium, currently inactive in stable #15 coronary artery disease with previous coronary revascularization. The patient had a acute hypotension during dialysis, possibly a recurrent cardiac event, troponin peaked at 1.4. Currently free of any chest pain. Currently is on the case. Plan Consider another session of hemodialysis today Attempts to wean off the pressors as tolerated Awaiting the final cultures from the sputum Continue IV Invanz and daptomycin Wound care to the lower extremities Multiple comorbidities with appropriate prognosis as stated. The patient has VRE in his sputum and ongoing kidney infection. His baseline performance and functional status is quite poor. He'll be attempted another dialysis as long as his hemodynamics tolerates. He'll be kept in ICU. We'll continue to follow.
[2019-09-08] MEDS: FLUDROCORTISONE 0.1 MG TAB PO SCH (10:24)
[2019-09-08] MEDS: ASPIRIN 81 MG PO SCH (10:24)
[2019-09-08] MEDS: CLOPIDOGREL 75 MG TAB PO SCH (10:24)
[2019-09-08] MEDS: SODIUM BICARBONATE TAB 650 MG TAB PO SCH (10:24)
[2019-09-08] MEDS ORDERED: HEPARIN SODIUM,PORCINE 5,000 UNIT/ML 1 ML VIAL IV ONE (10:30)
[2019-09-08] MEDS ORDERED: HEPARIN SODIUM,PORCINE 5,000 UNIT/ML 1 ML VIAL IV PRN (10:30)
[2019-09-08] MEDS ORDERED: HEPARIN SOD,PORK IN 0.45% NACL 25,000 UNIT in 0.45% NACL 1 250ML.BAG IV SCH (10:30)
--- NOTE | 2019-09-08 10:38 | ECHOF ---
Referral Reason:elevated trops MEASUREMENTS -------- HEIGHT: 180.3 cm WEIGHT: 132.4 kg BP: 96/61 RVIDd: 3.4 cm (< 3.3) IVSd: 1.1 cm (0.6 - 1.1) LVIDd: 5.8 cm (3.9 - 5.3) LVPWd: 1.1 cm (0.6 - 1.1) IVSs: 1.1 cm LVIDs: 5.9 cm LVPWs: 1.0 cm LA Diam: 4.7 cm (2.7 - 3.8) LAESV Index (A-L): 32.72 ml/m Ao Diam: 3.4 cm (2.0 - 3.7) AV Cusp: 1.9 cm (1.5 - 2.6) MV EXCURSION: 19.523 mm (> 18.000) MV EF SLOPE: 31 mm/s (70 - 150) EPSS: 2.4 cm MV E Abdulaziz: 1.17 m/s MV DecT: 110 ms MV A Abdulaziz: 0.85 m/s MV E/A Ratio: 1.39 AR PHT: 550 ms RAP: 15.00 mmHg RVSP: 50.69 mmHg FINDINGS -------- Resting tachycardia (HR>100bpm). This was a technically good study. The left ventricular size is normal. There is borderline concentric left ventricular hypertrophy. Overall left ventricular systolic function is severely impaired with, an EF < 20%. The right ventricle is mildly enlarged. LA is midly dilated 29-33ml/m2. The right atrium is normal in size. Interatrial and interventricular septum intact. There is mild aortic valve sclerosis. There is mild aortic regurgitation. Mild mitral annular calcification present. Mild mitral regurgitation is present. Mild tricuspid regurgitation present. There is moderate pulmonary hypertension. The right ventric ular systolic pressure, as measured by Doppler, is 50.69mmHg. Trace/mild (physiologic) pulmonic regurgitation. The aortic root size is normal. The inferior vena cava is dilated with no significant inspiratory collapse which is consistent estima [place] right atrial pressure of >15 mmHg. There is a trivial pericardial effusion present. Large Pleural Effusion. CONCLUSIONS -------- 1. Resting tachycardia (HR>100bpm). 2. This was a technically good study. 3. The left ventricular size is normal. 4. There is borderline concentric left ventricular hypertrophy. 5. Overall left ventricular systolic function is severely impaired with, an EF < 20%. 6. The right ventricle is mildly enlarged. 7. LA is midly dilated 29-33ml/m2. 8. The right atrium is normal in size. 9. Interatrial and interventricular septum intact. 10. There is mild aortic valve sclerosis. 11. There is mild aortic regurgitation. 12. Mild mitral annular calcification present. 13. Mild mitral regurgitation is present. 14. Mild tricuspid regurgitation present. 15. There is moderate pulmonary hypertension. 16. The right ventricular systolic pressure, as measured by Doppler, is 50.69mmHg. 17. Trace/mild (physiologic) pulmonic regurgitation. 18. The aortic root size is normal. 19. The inferior vena cava is dilated with no significant inspiratory collapse which is consistent es timated right atrial pressure of >15 mmHg. 20. There is a trivial pericardial effusion present. 21. Large Pleural Effusion. AUTOMATIC HEMMER: Sera Patricio RDCS
[2019-09-08] MEDS: FLUTICASONE 50MCG/SPRAY NASAL 16GM EA NOSTRIL SCH (10:58)
[2019-09-08] MEDS: BETAMETHASONE DIPROPIONATE 0.05% CREAM 15 GM TUBE TOPICAL SCH (10:58)
[2019-09-08 11:38] LABS: Glucose,Whole Blood 83 mg/dL (75-99)
[2019-09-08 11:48] LABS: Anisocytosis Slight; Basophils % (A) 0 %; Eosinophils % (A) 0 %; HCT 26.4 % (39.0-53.0); Hypochromasia Marked; Lymphocytes # (A) 0.3 k/uL (1.0-4.8); Lymphocytes % (A) 3 %; MCH 29.9 pg (25.0-35.0); MCHC 30.3 g/dL (31.0-37.0); MCV 98.5 fL (80.0-100.0); Macrocytosis Slight; Mean Platelet Volume 8.8; Monocytes # (A) 0.6 k/uL (0-1.0); Monocytes % (A) 6 %; Neutrophils # (A) 9.3 k/uL (1.3-7.7); Neutrophils % (A) 90 %; Platelet Count 134 k/uL (150-450); RBC 2.68 m/uL (4.30-5.90); RDW 17.6 % (11.5-15.5); WBC 10.4 k/uL (3.8-10.6)
[2019-09-08 11:54] LABS: INR 1.3 (<1.2); Partial Thromboplastin Time 32.6 sec (22.0-30.0); Prothrombin Time 12.6 sec (9.0-12.0)
[2019-09-08] MEDS ORDERED: MULTIVITAMINS, THERA 1 EACH TAB PO SCH (12:00)
[2019-09-08] MEDS ORDERED: THIAMINE 100 MG TAB PO SCH (12:00)
[2019-09-08] MEDS ORDERED: FOLIC ACID 1 MG TAB PO SCH (12:00)
[2019-09-08] MEDS ORDERED: DOBUTamine DRIP 500 MG in DEXTROSE/WATER 1 250ML.BAG IV SCH (13:45)
[2019-09-08] MEDS: ERTAPENEM 0.5 GM in SODIUM CHLORIDE 0.9% 50 ML IVPB SCH (14:15)
--- NOTE | 2019-09-08 14:23 | PN ---
PROGRESS NOTE Patient is seen for followup for acute kidney injury. Patient is oliguric and dialysis dependent. He was initially dialyzed for hyperkalemia. However, he remains volume overloaded. Urine output is on the lower side. He has only had about 5 of urine for the last 2-3 hours now. The patient did not tolerate dialysis well yesterday. His blood pressure dropped over the treatment. We initially had about 2 L off, but he received 1.5 L back as he was severely hypotensive. Patient remains on Levophed, which was significantly higher yesterday up to 30 mcg, this morning it is down to about 20 mcg. The patient is currently n.p.o. therefore he is not able to take the midodrine for blood pressure. His recent echocardiogram showed ejection fraction less than 20%. This was done this morning and have last to contact Cardiology for possible dobutamine. There are plans to dialyze him again today. If patient does not tolerate the treatment, we will start sled procedure tomorrow. PHYSICAL EXAMINATION: Today patient is comfortable, awake, he is not in any acute distress. Blood pressure was 75/52, heart rate 92 per minute. He is afebrile. Examination of the heart S1, S2. Examination of lungs decreased breath sounds at bases. Abdomen is soft, nontender, obese. Examination of the lower extremities shows edema 2+ bilaterally. BIT SANDER exam grossly intact. LABS SHOW: 1. Hemoglobin 8.0, sodium 140, potassium 4.8, BUN 43, creatinine 2.8. Troponin 3.03. ASSESSMENT: 1. Acute kidney injury, acute tubular necrosis, currently oliguric and hemodialysis dependent. Patient did not tolerate the treatment well yesterday and had to get a lot of fluid back. We will try dialysis again today. However, if we can use dobutamine that might help as ejection fraction is less than 20%. 2. Hyperkalemia associated with acute kidney injury, metabolic acidosis, improved post dialysis. 3. Volume overload. 4. Cardiomyopathy, ejection fraction less than 20%. 5. Positive sputum cultures for Klebsiella and Leatha, maintained on antibiotics. 6. Chronic kidney disease stage III, baseline creatinine 1.3-1.5 mg/dL secondary to nephrosclerosis. 7. Metabolic acidosis secondary to renal failure, now improved. The patient is maintained on sodium bicarb. This will continue to improve with ongoing dialysis. 8. Elevated troponin. Currently maintained on heparin. Possible non ST elevation myocardial infarction. PLAN: 1. Repeat hemodialysis today, add dobutamine if okay with Cardiology. 2. If the patient is not able to tolerate the dialysis today, we will plan for a sled treatment tomorrow. JOSEPH / YAKELIN: [id number] /
[2019-09-08] MEDS: MORPHINE SULFATE 2 MG/ML SYRINGE IVP PRN ×2 (15:15→18:43)
[2019-09-08 16:41] LABS: Glucose,Whole Blood 124 mg/dL (75-99)
[2019-09-08 16:43] VITALS: TEMP 97.6
[2019-09-08] MEDS ORDERED: SODIUM CHLORIDE 0.9% 50 ML with VASOPRESSIN 20 UNIT IVPB SCH ×2 (16:45)
--- NOTE | 2019-09-08 16:51 | P.PN ---
Progress Note - Text Progress Note Date: 09/08/19 Hospital course: This is a pleasant 74-year-old patient of Dr. Brown. Chronic stable medical conditions include , diabetes, hyperlipidemia, hypertension, peripheral neuropathy, COPD, coronary artery disease with prior stent. History of Left calcaneal acute osteomyelitis-complete a course of antibiotic end of April 2019. , chronic right foot ulcer Presented from long-term with low blood pressure short of breath. Patient had recent reported angiography of the lower extremities. Admitted with-sepsis. Left heel wound was found to be infected and debridement was carried out on September [address] Dede Juan from vascular. Also treated for pneumonia for Klebsiella/ESBL, acute hypoxic respiratory failure, left pleural effusion-2300 mL of yellow fluid was removed. September 02-dialysis catheter was placed to Dr. Juan-dialysis was started. [id number] evening patient dropped his blood pressure, became tachycardic and patient was given some IV fluids. There was a bump in troponin and IV heparin was started. She also put on IV dobutamine. Patient laying in bed tired awake but able to answer questions. Denies chest pain. Overnight patient's troponin bumped up. Review of systems: Was done for constitutional, cardiovascular, GI, pulmonary. relevant finding as above Active Medications Acetaminophen (Tylenol Tab) 650 mg PO Q6H PRN PRN Reason: Pain Hydrocodone Bitart/Acetaminophen ([place] 5-325) 1 each PO Q4HR PRN PRN Reason: Pain Last Admin: 09/06/19 04:49 Dose: 1 each Documented by: Albuterol/Ipratropium (Duoneb 0.5 Mg-3 Mg/3 Ml Soln) 3 ml INHALATION RT-TID [facility] Last Admin: 09/08/19 12:04 Dose: 3 ml Documented by: Albuterol/Ipratropium (Duoneb 0.5 Mg-3 Mg/3 Ml Soln) 3 ml INHALATION RT-Q2H PRN PRN Reason: Shortness Of Breath Or Wheezing Aspirin (Aspirin) 81 mg PO DAILY [facility] Last Admin: 09/08/19 10:24 Dose: Not Given Documented by: Betamethasone Dipropionate (Diprolene Af) 1 applic TOPICAL BID [facility] Last Admin: 09/08/19 10:58 Dose: 1 applic Documented by: Budesonide (Pulmicort) 1 mg INHALATION RT-BID [facility] Last Admin: 09/08/19 07:14 Dose: 1 mg Documented by: Clopidogrel Bisulfate (Plavix) 75 mg PO DAILY [facility] Last Admin: 09/08/19 10:24 Dose: Not Given Documented by: Darbepoetin Mario (Aranesp) 40 mcg SQ Q7D [facility] Last Admin: 09/03/19 10:38 Dose: 40 mcg Documented by: Fludrocortisone Acetate (Florinef) 0.2 mg PO BID [facility] Last Admin: 09/08/19 10:24 Dose: Not Given Documented by: Fluticasone Propionate (Flonase Nasal [place]) 1 spray EA NOSTRIL BID [facility] Last Admin: 09/08/19 10:58 Dose: 1 spray Documented by: Folic Acid (Folic Acid) 1 mg PO DAILY@1200 [facility] Last Admin: 09/08/19 11:04 Dose: Not Given Documented by: Formoterol Fumarate (Perforomist) 20 mcg INHALATION RT-BID [facility] Last Admin: 09/08/19 07:14 Dose: 20 mcg Documented by: Furosemide (Lasix) 80 mg IV DAILY [facility] Last Admin: 09/08/19 08:47 Dose: 80 mg Documented by: Haloperidol Lactate (Haldol) 1 mg IVP Q8HR PRN PRN Reason: Agitation or Acute Psychosis Heparin Sodium (Porcine) (Heparin) 0 unit IV PER PROTOCOL PRN; Protocol PRN Reason: Low PTT Hydrocortisone Sodium Succinate (Solu-Cortef) 25 mg IV Q12HR [facility] Stop: 09/09/19 22:46 Last Admin: 09/08/19 08:51 Dose: 25 mg Documented by: Daptomycin 870 mg/ Sodium (Chloride) 50 mls @ 100 mls/hr IVPB Q48H [facility]; Protocol Last Admin: 09/07/19 22:52 Dose: 100 mls/hr Documented by: Norepinephrine Bitartrate 8 mg (/ Sodium Chloride) 258 mls @ 14.043 mls/hr IV .[id number] [facility]; Protocol Last Titration: 09/08/19 16:28 Dose: Infused Documented by: Sodium Chloride (Saline 0.9%) 1,000 mls @ 20 mls/hr IV .Q24H [facility] Last Admin: 09/08/19 05:03 Dose: 20 mls/hr Documented by: Ertapenem 0.5 gm/ Sodium (Chloride) 50 mls @ 100 mls/hr IVPB DAILY@1500 [facility]; Protocol Last Admin: 09/08/19 14:15 Dose: 100 mls/hr Documented by: Heparin Sodium/Sodium Chloride (25,000 unit/ Sodium Chloride) 250 mls @ 10.004 mls/hr IV .Q24H [facility]; Protocol Last Admin: 09/08/19 11:31 Dose: 7.55 units/kg/hr, 10.004 mls/hr Documented by: Vasopressin 20 unit/ Sodium (Chloride) 51 mls @ 4.59 mls/hr IVPB .Q11H7M [facility] Insulin Aspart (Novolog) 0 unit SQ ACHS [facility]; Protocol Last Admin: 09/08/19 11:38 Dose: Not Given Documented by: Lactobacillus Acidoph/Bulgaricus (Lactinex) 1 each PO DAILY [facility] Last Admin: 09/08/19 08:39 Dose: Not Given Documented by: Midodrine (Proamatine) 10 mg PO AC-TID [facility] Last Admin: 09/08/19 11:34 Dose: Not Given Documented by: Morphine Sulfate (Morphine Sulfate (Inj)) 2 mg IVP Q6H PRN PRN Reason: Pain/Discomfort Last Admin: 09/07/19 22:53 Dose: 2 mg Documented by: Multivitamins (Theragran) 1 each PO DAILY@1200 [facility] Last Admin: 09/08/19 11:04 Dose: Not Given Documented by: Naloxone HCl (Narcan) 0.2 mg IV Q2M PRN PRN Reason: Opioid Reversal Ondansetron HCl (Zofran) 4 mg IVP Q6HR PRN PRN Reason: Nausea And Vomiting Last Admin: 09/05/19 12:13 Dose: 4 mg Documented by: Pantoprazole Sodium (Protonix) 40 mg PO DAILY [facility] Last Admin: 09/08/19 10:24 Dose: Not Given Documented by: Sodium Bicarbonate (Sodium Bicarbonate Tab) 650 mg PO BID [facility] Last Admin: 09/08/19 10:24 Dose: Not Given Documented by: Sodium Chloride (Saline Flush) 10 ml IV Q4HR PRN PRN Reason: PICC Line Sodium Chloride (Saline Flush) 10 ml IV WEEKLY [facility] Sodium Chloride (Saline Flush) 20 ml IV Q4HR PRN PRN Reason: PICC Line Thiamine HCl (Vitamin B-1) 100 mg PO DAILY@1200 [facility] Last Admin: 09/08/19 11:04 Dose: Not Given Documented by: Triamcinolone Acetonide (Kenalog) 1 applic TOPICAL BID [facility] Stop: 10/03/19 21:01 Physical examination: VITAL SIGNS: 98, 93, 19, 97/56, 96% on 3 L GENERAL: Propped in bed tired but awake EYES: Pupils equal. Conjunctiva normal. HEENT: External appearance of nose and ears normal, oral cavity grossly normal. Decreased hearing NECK: JVD not raised; masses not palpable. HEART: First and second heart sounds are normal; mild edema. LUNGS: Respiratory rate increased; decreased breath sounds. ABDOMEN: Soft, nontender, liver spleen not palpable, no masses palpable. PSYCH: Tired but able to answer simple questions EXTREMITY: Dressing on both the foot Investigations, reviewed in the clinical context White count 10.4 hemoglobin 8 platelets 132 bun 43 creatinine 2.88 Troponin I 0.186-1.4 at-3.0 Previous testing 2-D echo-year less than 20%, moderate pulmonary hypertension Renal ultrasound-some ascites, right adrenal mass may be adenoma Computed tomography scan of brain-chronic atrophic changes, no acute changes Left heel culture-Enterobacter cloaca, VRE Sputum culture-Klebsiella pneumoniae/ESBL White count 4.9 hemoglobin 8.4 platelets 117 potassium 5.7 bun 78 creatinine 4.14 On August 10 patient's creatinine was 1.76 Assessment: -Acute non-Q-wave myocardial infarction, type II from hypotension -Acute hypoxic respiratory failure, multifactorial including CHF, pleural effusion, pneumonia, POA -Severe pneumonia, from Klebsiella/ESBL pneumoniae in sputum, , POA -Septic shock requiring levo fed -Acute on chronic congestive heart exacerbation from systolic dysfunction EF less than 20 percent, -Acute left heel infected decubitus ulcer, causing sepsis-status post debridement, cultures positive for enterococcus faecium, Enterobacter cloacae, POA -Chronic kidney disease stage III with a baseline creatinine of 1.3-1.5 from nephrosclerosis -Acute metabolic encephalopathy with delirium -Anemia of chronic kidney disease -Diabetes mellitus type 2 causing Peripheral neuropathy -hyperlipidemia -Essential hypertension, history of -COPD in a current smoker -coronary artery disease with stent -Acute kidney injury, ATN secondary to hypotension, creatinine peaked at 4.37. Continue on hemodialysis. -Hyperkalemia secondary to acute kidney injury -Metabolic acidosis secondary to acute kidney injury -Splenomegaly, chronic Plan: Getting daily hemodialysis. Antibiotics including daptomycin and ertapenem. Also in IV heparin. IV dobutamine. Discussed with the patient. Prognosis guarded.
--- NOTE | 2019-09-08 17:07 | PN ---
PROGRESS NOTE DATE OF SERVICE: 09/08/2019 REASON FOR FOLLOWUP: 1. Pneumonia. 2. Left heel pressure. INTERVAL HISTORY: The patient is currently afebrile. The patient is breathing comfortably. He did have a cough but not bringing up any sputum. No chest pain. No nausea. No abdominal pain. No diarrhea. PHYSICAL EXAMINATION: Blood pressure is 100/60 pulse is 115, temperature 98. He is 95% on 2 L nasal cannula. General description is an elderly male lying in bed in no distress. Respiratory system: Unlabored breathing. Decreased breath sounds in the bases. No wheeze. Heart S1, S2. Regular rate and rhythm. Abdomen soft. No tenderness. LABS: Hemoglobin is 8, white count 10.4, creatinine is 2.8. DIAGNOSTIC IMPRESSION AND PLAN: 1. Patient with ESBL Klebsiella pneumonia, currently covered with Invanz. 2. Left knee pressure ulcer, culture positive for Enterobacter and VRE covered with daptomycin and Invanz. Continue local wound care as ordered and keep the area off pressure 3. Continue with the supportive care. MMODL / IJN: [id number] / LEONIE
[2019-09-08] MEDS ORDERED: MORPHINE SULFATE 2 MG/ML SYRINGE IVP PRN (18:52)
[2019-09-08 19:14] VITALS: BP 59/44; PULSE 0; RESP 0
--- NOTE | 2019-09-09 16:51 | P.EN ---
Advanced care planning: Patient yesterday evening started deteriorating. Requiring high dose of Levophed. Patient had become delirious. Blood pressures running on the low. Nurse to call me. Spoke to patient's son on the phone and patient's who was with her son. Described patient's very poor condition rapidly declining. Patient also was uncomfortable. In some distress. Patient's family that his son and both agreeable to proceed with comfort measures. Agreed for morphine. Agreed to proceed with hospice and comfort measures. Questions were answered. Did communicate with others. Total time spent was about 25 minutes.
--- NOTE | 2019-09-09 16:54 | P.DS ---
Providers Date of admission: 09/01/19 17:46 Expected date of discharge: 09/08/19 Attending physician: Maico Segundo Consults: 09/01/19 17:46 Consult Physician Routine Consulting Provider: Don Huntley Consult Reason/Comments: Congestive heart failure, renal failure Do you want consulting provider notified?: Yes Consult Physician Stat Consulting Provider: Reagan Rose Consult Reason/Comments: Sepsis, renal failure, pleural effusion Do you want consulting provider notified?: Already Contacted 09/01/19 18:04 Consult Physician Routine Consulting Provider: Evie De La Paz Consult Reason/Comments: sepsis Do you want consulting provider notified?: Yes Consult Physician Routine Consulting Provider: Stefania Lombardi Consult Reason/Comments: arf Do you want consulting provider notified?: Yes 09/01/19 21:48 Consult Physician Routine Consulting Provider: Duarte Barth Consult Reason/Comments: left heel wound debridment and deep cultures Do you want consulting provider notified?: Yes, Notify in am 09/02/19 15:24 Consult Physician Urgent Consulting Provider: Leilani Knowles Consult Reason/Comments: acute neuro deficit Do you want consulting provider notified?: Yes Primary care physician: [facility] Course: Hospital course: This is a pleasant 74-year-old patient of Dr. Brown. Chronic stable medical conditions include , diabetes, hyperlipidemia, hypertension, peripheral neuropathy, COPD, coronary artery disease with prior stent. History of Left calcaneal acute osteomyelitis-complete a course of antibiotic end of April 2019. , chronic right foot ulcer Presented from [facility] with low blood pressure short of breath. Patient had recent reported angiography of the lower extremities. Admitted with-sepsis. Left heel wound was found to be infected and debridement was carried out on September [address] Dede Juan from vascular. Also treated for pneumonia for Klebsiella/ESBL, acute hypoxic respiratory failure, left pleural effusion-2300 mL of yellow fluid was removed. September 02-dialysis catheter was placed to Dr. Juan-dialysis was started. Today-by evening time patient had rapidly determined. Requiring very high dose levo fed. Became uncomfortable. Spoke to the family. Son and patient's was with him. They agreed to proceed with comfort care. Patient succumbed to the same. Investigations, reviewed in the clinical context White count 10.4 hemoglobin 8 platelets 132 bun 43 creatinine 2.88 Troponin I 0.186-1.4 at-3.0 Previous testing 2-D echo-year less than 20%, moderate pulmonary hypertension Renal ultrasound-some ascites, right adrenal mass may be adenoma Computed tomography scan of brain-chronic atrophic changes, no acute changes Left heel culture-Enterobacter cloaca, VRE Sputum culture-Klebsiella pneumoniae/ESBL White count 4.9 hemoglobin 8.4 platelets 117 potassium 5.7 bun 78 creatinine 4.14 On August 10 patient's creatinine was 1.76 Cause of : -Acute non-Q-wave myocardial infarction, type II from hypotension Other medical conditions: -Acute hypoxic respiratory failure, multifactorial including CHF, pleural effusion, pneumonia, POA -Severe pneumonia, from Klebsiella/ESBL pneumoniae in sputum, , POA -Septic shock requiring levo fed -Acute on chronic congestive heart exacerbation from systolic dysfunction EF less than 20 percent, -Acute left heel infected decubitus ulcer, causing sepsis-status post debridement, cultures positive for enterococcus faecium, Enterobacter cloacae, POA -Chronic kidney disease stage III with a baseline creatinine of 1.3-1.5 from nephrosclerosis -Acute metabolic encephalopathy with delirium -Anemia of chronic kidney disease -Diabetes mellitus type 2 causing Peripheral neuropathy -hyperlipidemia -Essential hypertension, history of -COPD in a current smoker -coronary artery disease with stent -Acute kidney injury, ATN secondary to hypotension, creatinine peaked at 4.37. Continue on hemodialysis. -Hyperkalemia secondary to acute kidney injury -Metabolic acidosis secondary to acute kidney injury -Splenomegaly, chronic Disposition: Patient Plan - Discharge Summary New Discharge Prescriptions: No Action Aspirin [Adult Low Dose Aspirin EC] 81 mg PO DAILY@0700 Atorvastatin [Lipitor] 80 mg PO HS@2000 Sertraline [Zoloft] 50 mg PO DAILY@1600 Metoprolol Tartrate [Lopressor] 25 mg PO DAILY@0600 Cholecalciferol [Vitamin D3 (25 Mcg = 1000 Iu)] 1,000 unit PO DAILY@1600 Isosorbide Mononitrate [Isosorbide Mononitrate ER] 30 mg PO DAILY@0700 Acetaminophen Tab [Tylenol] 650 mg PO Q6H PRN PRN Reason: Pain diphenhydrAMINE HCL [Benadryl] 25 mg PO Q12H PRN PRN Reason: Itching HYDROcodone/APAP 5-325MG [[place] 5-325] 1 tab PO Q4HR PRN PRN Reason: Pain Triamcinolone 0.1% Cream [Kenalog 0.1% Cream] 1 applicatio TOPICAL DIRECTED metFORMIN HCL [Glucophage] 500 mg PO DIRECTED Betamethasone Dipropionate [Diprolene AF 0.05% Cream] 1 applic TOPICAL BID Furosemide [Lasix] 20 mg PO DAILY@1400 Fluticasone Nasal [place] [Flonase Nasal [place]] 1 spray EA NOSTRIL BID Mirtazapine [Remeron] 15 mg PO HS@1999 Lisinopril [Zestril] 2.5 mg PO DAILY@0600 Lactobacillus 1 cap PO DAILY@0700 Furosemide [Lasix] 40 mg PO DAILY@0700 Clopidogrel [Plavix] 75 mg PO DAILY@0700 Discharge Medication List Aspirin [Adult Low Dose Aspirin EC] 81 mg PO DAILY@0700 04/10/16 [History] Atorvastatin [Lipitor] 80 mg PO HS@199908/06/16 [History] Sertraline [Zoloft] 50 mg PO DAILY@1600 11/02/18 [History] Acetaminophen Tab [Tylenol] 650 mg PO Q6H PRN 05/18/19 [History] Cholecalciferol [Vitamin D3 (25 Mcg = 1000 Iu)] 1,000 unit PO DAILY@1600 05/18/19 [History] Isosorbide Mononitrate [Isosorbide Mononitrate ER] 30 mg PO DAILY@0700 05/18/19 [History] Metoprolol Tartrate [Lopressor] 25 mg PO DAILY@0600 05/18/19 [History] Betamethasone Dipropionate [Diprolene AF 0.05% Cream] 1 applic TOPICAL BID 09/01/19 [History] Clopidogrel [Plavix] 75 mg PO DAILY@0700 09/01/19 [History] Fluticasone Nasal [place] [Flonase Nasal [place]] 1 spray EA NOSTRIL BID 09/01/19 [History] Furosemide [Lasix] 20 mg PO DAILY@1400 09/01/19 [History] Furosemide [Lasix] 40 mg PO DAILY@0700 09/01/19 [History] HYDROcodone/APAP 5-325MG [[place] 5-325] 1 tab PO Q4HR PRN 09/01/19 [History] Lactobacillus 1 cap PO DAILY@0700 09/01/19 [History] Lisinopril [Zestril] 2.5 mg PO DAILY@0609/01/19 [History] Mirtazapine [Remeron] 15 mg PO HS@199909/01/19 [History] Triamcinolone 0.1% Cream [Kenalog 0.1% Cream] 1 applicatio TOPICAL DIRECTED 09/01/19 [History] diphenhydrAMINE HCL [Benadryl] 25 mg PO Q12H PRN 09/01/19 [History] metFORMIN HCL [Glucophage] 500 mg PO DIRECTED 09/01/19 [History] Follow up Appointment(s)/Referral(s): Grey Brown DO [Primary Care Provider] - 1-2 days Discharge Disposition: - Preliminary Cause of Preliminary Cause of : Acute myocardial infarction
[2019-09-13] MEDS ORDERED: TRIAMCINOLONE 0.1% CREAM 80 GM TUBE TOPICAL SCH (09:00)
--- NOTE | 2019-09-15 14:18 | P.PCN ---
Date of Procedure: 10/05/19 Preoperative Diagnosis: left pleural effusion Postoperative Diagnosis: left pleural effusion Procedure(s) Performed: thoracentesis Anesthesia: local Surgeon: Ruel Zhong Estimated Blood Loss (ml): 0 Pathology: other Condition: stable Disposition: floor Operative Findings: Indication: Pleural effusion. A time-out was completed verifying correct patient, procedure, site, positioning, and implant (s) or special equipment if applicable. Ultrasound guidance was used and appropriate fluid pocket was identified and marked. Patient was positioned, prepped and draped in usual sterile fashion. Lidocaine was used to anesthetize the area. A Thoracentesis catheter was int roduced into the pleural space and fluid was removed. Blood loss was none. A chest x-ray was ordered to evaluate for pneumothorax. Total Fluid Removed: 2.0 Color of Fluid: dark, turbid, yellow Fluid was sent for appropriate laboratory tests. Patient tolerated the procedure well and there were no complications.
== END 2019-09-08 19:10 | disposition expired | DRG 853 ==
LOC: EC 15:19 → 2SICU 17:46
PROVIDERS: ADMIT Hospitalist; ATTEND Hospitalist
PROC: 0JBR0ZZ Excision of Left Foot Subcutaneous Tissue and Fascia, Open Approach (ICD-10-PCS; principal; 2019-09-02)
PROC: 0W9B3ZX Drainage of Left Pleural Cavity, Percutaneous Approach, Diagnostic (ICD-10-PCS; 2019-09-02)
PROC: 06HM33Z Insertion of Infusion Device into Right Femoral Vein, Percutaneous Approach (ICD-10-PCS; 2019-09-02)
PROC: 02HV33Z Insertion of Infusion Device into Superior Vena Cava, Percutaneous Approach (ICD-10-PCS; 2019-09-03)
PROC: 3E0436Z Introduction of Nutritional Substance into Central Vein, Percutaneous Approach (ICD-10-PCS; 2019-09-03)
PROC: 0W9B3ZZ Drainage of Left Pleural Cavity, Percutaneous Approach (ICD-10-PCS; 2019-09-06)
PROC: 5A1D70Z Performance of Urinary Filtration, Intermittent, Less than 6 Hours Per Day (ICD-10-PCS; 2019-09-06)
DX: A41.59 Other Gram-negative sepsis (principal); L89.624 Pressure ulcer of left heel, stage 4; R65.21 Severe sepsis with septic shock; N17.0 Acute kidney failure with tubular necrosis; G93.41 Metabolic encephalopathy; I21.A1 Myocardial infarction type 2; I50.23 Acute on chronic systolic (congestive) heart failure; J15.0 Pneumonia due to Klebsiella pneumoniae; J96.01 Acute respiratory failure with hypoxia; E27.40 Unspecified adrenocortical insufficiency; E44.0 Moderate protein-calorie malnutrition; Z68.41 Body mass index [BMI] 40.0-44.9, adult; E87.2 Acidosis; F05 Delirium due to known physiological condition; I13.0 Hypertensive heart and chronic kidney disease with heart failure and stage 1 through stage 4 chronic kidney disease, or unspecified chronic kidney disease; J44.0 Chronic obstructive pulmonary disease with (acute) lower respiratory infection; J44.1 Chronic obstructive pulmonary disease with (acute) exacerbation; J94.2 Hemothorax; J98.11 Atelectasis; N39.0 Urinary tract infection, site not specified; Z16.21 Resistance to vancomycin; R18.8 Other ascites; Z16.12 Extended spectrum beta lactamase (ESBL) resistance; Z51.5 Encounter for palliative care; Z66 Do not resuscitate; B96.1 Klebsiella pneumoniae [K. pneumoniae] as the cause of diseases classified elsewhere; D63.1 Anemia in chronic kidney disease; D69.6 Thrombocytopenia, unspecified; E11.22 Type 2 diabetes mellitus with diabetic chronic kidney disease; E11.42 Type 2 diabetes mellitus with diabetic polyneuropathy; E11.51 Type 2 diabetes mellitus with diabetic peripheral angiopathy without gangrene; E11.621 Type 2 diabetes mellitus with foot ulcer; E66.9 Obesity, unspecified; E78.5 Hyperlipidemia, unspecified; E87.5 Hyperkalemia; F17.210 Nicotine dependence, cigarettes, uncomplicated; H57.02 Anisocoria; I25.10 Atherosclerotic heart disease of native coronary artery without angina pectoris; I25.2 Old myocardial infarction; I25.5 Ischemic cardiomyopathy; I27.20 Pulmonary hypertension, unspecified; I87.8 Other specified disorders of veins; L97.519 Non-pressure chronic ulcer of other part of right foot with unspecified severity; M06.9 Rheumatoid arthritis, unspecified; M19.90 Unspecified osteoarthritis, unspecified site; N18.3 Chronic kidney disease, stage 3 (moderate); R29.810 Facial weakness; Z79.02 Long term (current) use of antithrombotics/antiplatelets; Z79.82 Long term (current) use of aspirin; Z79.84 Long term (current) use of oral hypoglycemic drugs; Z79.899 Other long term (current) drug therapy; Z82.49 Family history of ischemic heart disease and other diseases of the circulatory system; Z86.14 Personal history of Methicillin resistant Staphylococcus aureus infection; Z88.0 Allergy status to penicillin; Z88.8 Allergy status to other drugs, medicaments and biological substances; Z90.49 Acquired absence of other specified parts of digestive tract; Z95.5 Presence of coronary angioplasty implant and graft; Z95.810 Presence of automatic (implantable) cardiac defibrillator; Z98.1 Arthrodesis status; Z99.2 Dependence on renal dialysis; Z83.6 Family history of other diseases of the respiratory system; Z82.61 Family history of arthritis; T68.XXXA Hypothermia, initial encounter; R16.1 Splenomegaly, not elsewhere classified; I08.0 Rheumatic disorders of both mitral and aortic valves
CPT/HCPCS: 36415; 36573; 70450; 71045; 74230; 76604; 76770; 80048; 80053; 81001; 82533; 82945; 83036; 83540; 83550; 83605; 83615; 83735; 83880; 84157; 84439; 84443; 84484; 85025; 85027; 85610; 85730; 86704; 86706; 87040; 87070; 87077; 87086; 87102; 87116; 87186; 87205; 87206; 87252; 87340; 87496; 87498; 87502; 87529; 87634; 87798; 88108; 88305; 89050; 90935; 93005; 93306; 93880; 94640; 96361; 96365; 96368; 96375; 99291